=== PATIENT | female | born 1945 | race Caucasian/White ===

== ENCOUNTER 2017-08-14 23:15 | Emergency (ER) | payer MEDICARE, SELFPAY ==
[2017-08-14 23:16] VITALS: BP 143/73; PULSE 72; RESP 18; TEMP 36.7; O2SAT 98; BMI 33.4
[2017-08-14 23:52] LABS: Bedside Glucose 107 mg/dL (70-110)
[2017-08-14 23:52] LABS: Bedside Glucose 129 mg/dL (70-110)
[2017-08-14 23:52] LABS: Absolute Lymphocyte Count 1.61 X10^3/ul (0.83-4.51); Absolute Neutrophil Count 3.4 X10^3/uL (2.0-7.7); Basophil# 0.02 X10^3/uL; Basophil% 0.4 % (0-1); Eosinophil# 0.13 X10^3/uL; Eosinophils% 2.4 % (0-5); Hematocrit 32.3 % (37-47); Lymphocyte # 1.61 X10^3/ul (4.0); Lymphocyte % 29.2 % (19-41); Mean Corp Hgb Conc 34.1 g/gl (32-36); Mean Corpuscular Hgb 32.9 pg (27.0-32.0); Mean Corpuscular Volume 96.7 fL (81-99); Mean Platelet Vol. 11.1 fl (6.2-12.0); Monocyte# 0.35 X10^3/uL; Monocyte% 6.4 % (0-10); Neutrophil # 3.36 X10^3/uL (2.7-7.7); Neutrophil % 60.9 % (47-70); Platelet Count 171 K/mm3 (150-450); RBC Distribution Width CV 13.3 % (11.6-14.6); RBC Distribution Width SD 44.8 fl (35.1-43.9); Red Blood Count 3.34 M/mm3 (4.2-5.4); White Blood Count 5.5 K/mm3 (4.4-11.0)
[2017-08-14 23:56] LABS: POSITIVE COUNT NO; POSITIVE DIFFERENTIAL NO; POSITIVE MORPHOLOGY NO
[2017-08-14 23:59] LABS: Anion Gap 10 (5-15); BUN 32 mg/dL (7-18); BUN/Creat Ratio 24.2 RATIO (10-20); Calcium,Total 8.3 mg/dL (8.5-10.1); Chloride 112 mmol/L (98-107); Creatinine, Serum 1.32 mg/dL (0.55-1.02); EST Glomerular Filtration Rate 42 mL/min (>60); Est Glom Filt Rate - Afr Amer 51 mL/min (>60); Estimated Creatinine Clearance 27.26 ml/min; Glucose 137 mg/dL (70-110); Sodium Level 141 mmol/L (136-145)
[2017-08-15] MEDS: Acetaminophen 500 MG Tablet 1000 MG PO (00:17)
[2017-08-15] MEDS: Dextrose 50%-Water 25 GM/50 ML DISP.SYRIN IV (00:18)
[2017-08-15 00:52] VITALS: BP 139/53; PULSE 69; RESP 15; O2SAT 99
[2017-08-15 00:56] LABS: Bedside Glucose 140 mg/dL (70-110)
[2017-08-15 00:56] LABS: Bedside Glucose 169 mg/dL (70-110)
[2017-08-15 01:04] VITALS: BP 135/64; PULSE 64; RESP 13; O2SAT 99
[2017-08-15 01:06] LABS: Bedside Glucose 132 mg/dL (70-110)
--- NOTE | 2017-08-15 01:06 | CT_ITS ---
STUDY: CT ABDOMEN AND PELVIS WITHOUT CONTRAST REASON FOR EXAM: Female, 71 years old. Hypoglycemia right-sided abdominal pain and shortness of breath dizziness multiple medical problems including hypertension diabetes hypothyroidism kidney stones. History of hysterectomy RADIATION DOSAGE (If Supplied By Facility): CTDIvol = ( 11.31 ) mGy, DLP = ( 562.15 ) mGycm TECHNIQUE: Transaxial images were obtained from the dome of the diaphragm to the symphysis pubis without oral contrast, and without intravenous contrast. Sagittal and coronal images were reconstructed. Individualized dose optimization techniques were used for this CT. COMPARISON: None. FINDINGS: There is trace lower lobe atelectasis. There is dense calcification of the mitral valve. Normal liver. There is non-visualization of the gallbladder, which may be secondary to either contraction or a prior cholecystectomy. Normal spleen. There is diffuse atrophy of the pancreas. There is a minimal amount of pancreatic tissue demonstrated what is remaining is calcified partially calcified. Normal bilateral adrenal glands. There is minimal right pelviectasis. Is a punctate stone adjacent to the distal right ureter. The left kidney appears mildly atrophied. There is a stone in the left kidney that measures 2.5 mm.. There is a small hiatal hernia. Normal small intestine. There is abundant stool in the colon from cecum to the rectum. The appendix is visualized and appears normal. Aorta is partially calcified. Normal inferior vena cava. Normal retroperitoneum. Normal urinary bladder. There is absence of the uterus consistent with a prior hysterectomy. There is a small umbilical hernia containing fat. The bones are osteopenic is anterolisthesis of L4-L5. There is multilevel disc space narrowing and endplate sclerosis spondylosis most significant at L4-L5 where there is severe neural foraminal narrowing and severe central stenosis. CT/Abdomen/Pelvis without Cont IMPRESSION: Constipation. Minimal diverticulosis no definitive diverticulitis. No evidence of appendicitis. Mild left renal atrophy and nonobstructing left renal calculus Minimal right pelviectasis. Left greater than right mild renal atrophy. There is a small hiatal hernia. Degenerative changes of the thoracolumbar spine most significant at level L4-L5. Electronically Signed: Betina Espinal MD at 1:53 EST Tel , Service support ,
--- NOTE | 2017-08-15 01:29 | ED.DCSUM_ITS ---
- ER Visit Summary Date of Service: 08/15/17 Chief Complaint: Hypoglycemia History of Present Illness: The patient is a 71 F who is a resident at [facility]. Patient reportedly was given short acting insulin instead of her evening long-acting dose. She was given 27 units of regular insulin at 9 PM. Patient is complaining of feeling sleepy. Blood sugar for EMS was 121. Patient arrived here at nearly 11:30PM for evaluation. Patient states she was seen by a doctor earlier today and he complained of abdominal distention. She was told she likely had a kidney stone, and once is evaluated while she has here as well. She does state she has been having blood in her urine for quite some time. Physical Examination: Vital signs are unremarkable. Patient sitting upright in bed no acute distress. Heart is regular rate and rhythm. Lung sounds are clear. Abdomen is soft, slightly distended, and mildly diffusely tender. No guarding or rebound is noted. Extremity examination is unremarkable. Test Results: CBC was normal white count with hemoglobin 11.0. Chemistry studies reveal a glucose of 137, BUN 32, creatinine 1.32. This is her baseline renal status. Emergency Department Course and Treatment: Patient has had frequent blood sugar checks while here. Although she maintained stable blood sugars in the 1 teens to 120 range, after speaking with the [facility] staff she did have a sudden drop of 100 points and a half hour time period. That is when the patient started to feel ill. In light of this she was given a half amp of D50. She is given Tylenol for headache. Patient states that while she is here in the emergency room she would like to have her abdominal pain addressed and determine if in fact she does have a kidney stone. Urinalysis was obtained and shows no significant blood. CT the flank shows constipation. There is a nonobstructing left renal stone noted. There is a small hiatal hernia. Patient was observed until 6 hours after the time she was giving the wrong insulin. Blood sugars have been stable. At this time the fast acting insulin should be out of her system. She will be discharged back to her assisted living center. Treatment Plan: [] Disposition: Discharge Impression: Medication error This note was generated with [employer] software. It may contain incorrect words, spelling, and punctuation that were not noted in review of the chart prior to signing ED Disposition - Plan for ED Patient: Disposition: Home or Assisted Living Chief Complaint: Hypoglycemia Instructions: ED Constipation, ED Diabetes Hypoglycemia Insulin React Referrals: Krystal Alcaraz MD [Primary Care Provider] - 1 Week
[2017-08-15] MEDS: Ondansetron 4 MG/2 ML Vial IV (01:44)
[2017-08-15 01:56] LABS: Bedside Glucose 108 mg/dL (70-110)
[2017-08-15 02:09] VITALS: BP 138/65; PULSE 71; RESP 16; O2SAT 98
[2017-08-15 02:09] LABS: Bacteria 0 SEEN /hpf (None Seen); Mucous, Urine 0 SEEN /hpf (<or=2+); Red Blood Cells-Urine 0 SEEN /hpf (0-5)
[2017-08-15 02:13] LABS: Color, Urine Yellow (Yellow); Glucose, Dipstick Normal (Normal); Ketone-Dipstick Negative (Negative); Leukocyte Esterase-Dipstick 25 /ul (Negative); Nitrite-Dipstick Negative (Negative); Occult Blood-Urine Negative /ul (Negative); Protein-Dipstick Negative (Negative); Specific Gravity, Urine 1.015 (1.002-1.030); Urine Bilirubin Dipstick Negative (Negative); Urine Clarity Sl. Cloudy (Clear); Urine Urobilinogen Normal (Normal)
[2017-08-15 02:25] LABS: Squamous Epithelial Cells - UA 0-5 SEEN /hpf (5-10); White Blood Cells 5-10 SEEN /hpf (0-5)
[2017-08-15 03:05] VITALS: BP 132/63; PULSE 66; RESP 18; O2SAT 96
[2017-08-15 03:06] LABS: Bedside Glucose 137 mg/dL (70-110)
--- NOTE | 2017-08-15 03:09 | ED.DEP ---
ED Disposition - Plan for ED Patient: Disposition: Home or Assisted Living Chief Complaint: Hypoglycemia Instructions: ED Diabetes Hypoglycemia Insulin React, ED Constipation Referrals: Krystal Alcaraz MD [Primary Care Provider] - 1 Week
[2017-08-15 03:18] VITALS: BP 131/67; PULSE 73; RESP 16; O2SAT 98
[2017-08-17 12:06] LABS: Bedside Glucose 104 mg/dL (70-110)
[2017-08-17 12:06] LABS: Bedside Glucose 116 mg/dL (70-110)
[2017-08-17 12:06] LABS: Bedside Glucose 122 mg/dL (70-110)
== END 2017-08-15 03:34 | disposition home or self-care (01) ==
PROVIDERS: Emergency Provider Emergency Medicine; Family Provider Internal Medicine; PCP Internal Medicine
DX: T38.3X1A Poisoning by insulin and oral hypoglycemic [antidiabetic] drugs, accidental (unintentional), initial encounter (principal); K59.00 Constipation, unspecified; N20.0 Calculus of kidney; K44.9 Diaphragmatic hernia without obstruction or gangrene; M19.90 Unspecified osteoarthritis, unspecified site; Z79.4 Long term (current) use of insulin; Z79.02 Long term (current) use of antithrombotics/antiplatelets; Z79.899 Other long term (current) drug therapy; Y92.099 Unspecified place in other non-institutional residence as the place of occurrence of the external cause
CPT/HCPCS: 74176; 80048; 81001; 82962; 85025; 96374; 96375; 99285; A4216; J2405

== ENCOUNTER → 2017-08-31 21:36 | Outpatient (CLI) | payer MEDICARE, SELFPAY | PROVIDERS: Family Provider Internal Medicine; PCP Internal Medicine; Visit Provider Nurse Practitioner Adult Health | DX: R82.99 Other abnormal findings in urine (principal) | CPT/HCPCS: 87077; 87086; 87088; 87186 ==

== ENCOUNTER → 2017-09-08 14:48 | Outpatient (CLI) | payer MEDICARE, SELFPAY ==
[2017-09-08 14:55] LABS: Mucous, Urine 0 SEEN /hpf (<or=2+)
[2017-09-08 17:37] LABS: Absolute Lymphocyte Count 1.31 X10^3/ul (0.83-4.51); Absolute Neutrophil Count 4.1 X10^3/uL (2.0-7.7); Basophil# 0.02 X10^3/uL; Basophil% 0.3 % (0-1); Eosinophils% 3.4 % (0-5); Hematocrit 34.1 % (37-47); Lymphocyte # 1.31 X10^3/ul (4.0); Lymphocyte % 22.1 % (19-41); Mean Corp Hgb Conc 32.3 g/gl (32-36); Mean Corpuscular Hgb 31.5 pg (27.0-32.0); Mean Corpuscular Volume 97.7 fL (81-99); Mean Platelet Vol. 11.4 fl (6.2-12.0); Monocyte% 5.1 % (0-10); Neutrophil # 4.07 X10^3/uL (2.7-7.7); Neutrophil % 68.6 % (47-70); Platelet Count 195 K/mm3 (150-450); RBC Distribution Width CV 14.2 % (11.6-14.6); RBC Distribution Width SD 49.2 fl (35.1-43.9); Red Blood Count 3.49 M/mm3 (4.2-5.4); White Blood Count 5.9 K/mm3 (4.4-11.0)
[2017-09-08 17:39] LABS: POSITIVE COUNT NO; POSITIVE DIFFERENTIAL NO; POSITIVE MORPHOLOGY NO
[2017-09-08 17:58] LABS: Color, Urine Yellow (Yellow); Glucose, Dipstick Normal (Normal); Ketone-Dipstick Negative (Negative); Leukocyte Esterase-Dipstick 500 /ul (Negative); Nitrite-Dipstick Negative (Negative); Occult Blood-Urine 10 /ul (Negative); Protein-Dipstick 15 mg/dl (Negative); Urine Bilirubin Dipstick Negative (Negative); Urine Clarity Sl. Cloudy (Clear); Urine Urobilinogen Normal (Normal)
[2017-09-08 18:06] LABS: Hemoglobin A1c 6.5 % (4.2-6.3)
[2017-09-08 18:35] LABS: Amorphous Sediment 1+ URATE; Bacteria RARE /hpf (None Seen); Red Blood Cells-Urine 0-5 SEEN /hpf (0-5); Squamous Epithelial Cells - UA 10-25 SEEN /hpf (5-10); White Blood Cells 25-50 SEEN /hpf (0-5)
[2017-09-08 18:39] LABS: ALB/GLOB Ratio 0.8 RATIO (0.9-2.4); AST(SGOT) 27 U/L (15-37); Alanine Aminotransfer ALT/SGPT 36 U/L (13-56); Albumin, Serum 3.3 g/dL (3.2-5.0); Alkaline Phosphatase 65 U/L (45-117); Anion Gap 11 (5-15); BUN 31 mg/dL (7-18); Calcium,Total 8.7 mg/dL (8.5-10.1); Chloride 107 mmol/L (98-107); Cholesterol 130 mg/dL (200); Creatinine, Serum 1.63 mg/dL (0.55-1.02); EST Glomerular Filtration Rate 33 mL/min (>60); Est Glom Filt Rate - Afr Amer 40 mL/min (>60); Ferritin 89 ng/mL (8-252); Globulin 3.9 g/dL (2.2-4.2); Glucose 179 mg/dL (74-106); High Density Lipoprotein 59 mg/dL; Iron 54 ug/dL (50-170); Iron Binding Capacity,Total 356 ug/dL (250-450); Potassium 4.1 mmol/L (3.5-5.1); Protein, Total 7.2 g/dL (6.4-8.2); Sodium Level 140 mmol/L (136-145); T4 Free Direct 0.93 ng/dL (0.76-1.46); Thyroid Stim Hormone (TSH) 2.12 uIU/mL (0.358-3.74); Triglycerides 167 mg/dL; Uric Acid 6.6 mg/dL (2.6-6.0); Very Low Density Lipoprotein 33 mg/dL (5-40)
[2017-09-08 19:15] LABS: Microalbumin,Random Urine 44.2 mg/L (NO RANGE EST.); Microalbumin:Creatinine Ratio 33.5 mg/g CRE (<30 mg/g CRE)
[2017-09-09 10:32] LABS: Vitamin B12 1572 pg/mL (211-911); Vitamin D,25 Hydroxy 19.7 ng/mL (19.95-100.01)
== END ==
PROVIDERS: Family Provider Family Medicine; PCP Family Medicine; Visit Provider Family Medicine
DX: E03.9 Hypothyroidism, unspecified (principal); D64.9 Anemia, unspecified; I48.91 Unspecified atrial fibrillation; E11.9 Type 2 diabetes mellitus without complications; E55.9 Vitamin D deficiency, unspecified; E53.8 Deficiency of other specified B group vitamins; M10.9 Gout, unspecified
CPT/HCPCS: 80053; 80061; 81001; 82043; 82306; 82570; 82607; 82728; 82746; 83036; 83540; 83550; 83735; 84439; 84443; 84550; 85025

== ENCOUNTER → 2017-09-23 14:54 | Outpatient (CLI) | payer MEDICARE, SELFPAY ==
[2017-09-23 18:13] LABS: Anion Gap 7 (5-15); BUN 25 mg/dL (7-18); BUN/Creat Ratio 18.8 RATIO (10-20); Calcium,Total 8.5 mg/dL (8.5-10.1); Chloride 106 mmol/L (98-107); Creatinine, Serum 1.33 mg/dL (0.55-1.02); EST Glomerular Filtration Rate 41 mL/min (>60); Est Glom Filt Rate - Afr Amer 50 mL/min (>60); Glucose 170 mg/dL (74-106); Potassium 4.3 mmol/L (3.5-5.1); Sodium Level 141 mmol/L (136-145)
== END ==
PROVIDERS: Family Provider Family Medicine; PCP Family Medicine; Visit Provider Family Medicine
DX: R94.4 Abnormal results of kidney function studies (principal)
CPT/HCPCS: 36415; 80048

== ENCOUNTER 2017-10-03 18:58 | Emergency (ER) | payer MEDICARE, SELFPAY ==
[2017-10-03 19:01] VITALS: BP 129/76; PULSE 59; PULSE 61; RESP 14; RESP 15; TEMP 36.6; O2SAT 100
--- NOTE | 2017-10-03 19:12 | CT_ITS ---
STUDY: CT BRAIN WITHOUT CONTRAST REASON FOR EXAM: Female, 72 years old. Severe vertigo today. RADIATION DOSAGE (If Supplied By Facility): CTDIvol = ( 44.99 ) mGy, DLP = ( 745.49 ) mGycm TECHNIQUE: Transaxial CT imaging of the brain was performed without administration of intravenous contrast material. Multiplanar reformations are submitted for interpretation Individualized dose optimization techniques were used for this CT. COMPARISON: CT of the head dated February 21, 2017. FINDINGS: Normal soft tissue structures. Normal calvarium. There is moderate cerebral atrophy with widening of the extra-axial spaces and ventricular dilatation. There are areas of decreased attenuation within the white matter tracts of the supratentorial brain, consistent with microvascular disease changes. There are small punctate calcifications of the basal ganglia which are seen in the aging brain as a normal variant. Normal brainstem. There is mild cerebellar atrophy. There is no intracranial hemorrhage. There is moderate atherosclerotic calcification of intracranial arteries. Appears to be some gas within the left cavernous sinus. Normal visualized paranasal sinuses. CT/Brain/Head without Contrast IMPRESSION: 1. Chronic involutional changes of the brain. 2. No CT evidence of acute intracranial hemorrhage. Electronically Signed: Aydee Godinez MD at 20:30 EDT , Service support ,
--- NOTE | 2017-10-03 19:12 | EKG12_ITS ---
Test Reason : Blood Pressure : / mmHG Vent. Rate : 051 BPM Atrial Rate : 051 BPM P-R Int : 160 ms QRS Dur : 148 ms QT Int : 568 ms P-R-T Axes : 022 -31 050 degrees QTc Int : 523 ms Sinus bradycardia with Premature atrial complexes Left axis deviation Left bundle branch block Abnormal ECG Confirmed by ANG SCHULER, LEANNA ([id number]), editor & co founder LIV VARGAS ([id number]) on 10/06/2017 3:04:27 PM Referred By: IAN Confirmed By:LEANNA FRY MD
--- NOTE | 2017-10-03 19:16 | NURSING ---
NO OLD EKG'S IN MUSE
[2017-10-03] MEDS: Meclizine 12.5 MG Tablet 25 MG PO (19:35)
[2017-10-03] MEDS: Ondansetron 4 MG/2 ML Vial IV (19:36)
[2017-10-03 19:40] LABS: Absolute Lymphocyte Count 1.49 X10^3/ul (0.83-4.51); Absolute Neutrophil Count 4.7 X10^3/uL (2.0-7.7); Basophil# 0.02 X10^3/uL; Basophil% 0.3 % (0-1); Eosinophil# 0.16 X10^3/uL; Eosinophils% 2.4 % (0-5); Hematocrit 36.1 % (37-47); Hemoglobin 12.1 g/dl (12.0-15.0); Lymphocyte # 1.49 X10^3/ul (4.0); Lymphocyte % 22.3 % (19-41); Mean Corp Hgb Conc 33.5 g/gl (32-36); Mean Corpuscular Hgb 31.9 pg (27.0-32.0); Mean Corpuscular Volume 95.3 fL (81-99); Mean Platelet Vol. 11.6 fl (6.2-12.0); Monocyte# 0.29 X10^3/uL; Monocyte% 4.3 % (0-10); Neutrophil # 4.68 X10^3/uL (2.7-7.7); Neutrophil % 70.3 % (47-70); Platelet Count 167 K/mm3 (150-450); RBC Distribution Width CV 13.1 % (11.6-14.6); RBC Distribution Width SD 45.5 fl (35.1-43.9); Red Blood Count 3.79 M/mm3 (4.2-5.4); White Blood Count 6.7 K/mm3 (4.4-11.0)
[2017-10-03 19:41] LABS: POSITIVE COUNT NO; POSITIVE DIFFERENTIAL NO; POSITIVE MORPHOLOGY NO
[2017-10-03 19:49] LABS: Anion Gap 8 (5-15); BUN 19 mg/dL (7-18); BUN/Creat Ratio 15.2 RATIO (10-20); Calcium,Total 8.6 mg/dL (8.5-10.1); Chloride 106 mmol/L (98-107); Creatinine, Serum 1.25 mg/dL (0.55-1.02); EST Glomerular Filtration Rate 45 mL/min (>60); Est Glom Filt Rate - Afr Amer 54 mL/min (>60); Glucose 211 mg/dL (74-106); Potassium 4.2 mmol/L (3.5-5.1); Sodium Level 138 mmol/L (136-145)
--- NOTE | 2017-10-03 19:57 | RAD_ITS ---
STUDY: X-RAY CHEST REASON FOR EXAM: Female, 72 years old. Headache and dizziness. Patient has history of hypertension and atrial fibrillation. TECHNIQUE: AP and lateral views of the chest. COMPARISON: Prior comparable comparison studies are not available for review at this time. FINDINGS: Cardiac monitoring leads are present. The lungs are underexpanded. There is no evidence for airspace consolidation. There is no demonstrated pleural abnormality. There is borderline cardiomegaly. Normal mediastinum and kasey. Normal visualized pulmonary arteries. There is atherosclerotic calcification of the aortic arch with tortuosity. There is demineralization of the osseous structures. There is multilevel thoracic spondylosis. Normal visualized ribs, clavicles, and shoulders. There is no demonstrated abnormality of the visualized soft tissue structures of the upper abdomen. RAD/Chest PA and Lateral IMPRESSION: Borderline cardiomegaly. Electronically Signed: Aydee Godinez MD at 20:32 EDT , Service support ,
[2017-10-03 19:58] VITALS: BP 122/70; BP 128/70; PULSE 62; PULSE 65
[2017-10-03 21:03] VITALS: BP 130/78; PULSE 67; RESP 14; O2SAT 98
--- NOTE | 2017-10-03 22:11 | ED.VISSUMM ---
- ER Visit Summary Date of Service: 10/03/17 Chief Complaint: Vertigo History of Present Illness: The patient is a [address] Alcaraz. She is not a reliable informant. She reports that she was sitting on the couch 6 hours ago and had the onset of vertigo. States it is increased with standing or moving her head. She denies any ringing or roaring in her ears. No change or hearing. No ear pain. States that she has a headache this out of 10 severity. It is a diffuse throbbing pain. States nothing makes this better or worse. She has a history of similar headaches. Patient complains of chills. She denies a fever. She reports she has had a cough for the past 2 weeks that is nonproductive. She denies any chest pain or shortness of breath. She denies any abdominal pain, nausea, vomiting, or melena. She reports that she has been having diarrhea 4 times a day for the past 3 weeks. Patient reports that she has not urinated for the past 2 weeks. Physical Examination: Vitals: Stable. Afebrile. General: Well-nourished and well-developed. Head: Normocephalic atraumatic. Neck: Supple, no lymphadenopathy. No JVD. Nontender. Cardiovascular: Regular rate and rhythm. No murmurs. Respiratory: No respiratory distress. Clear to auscultation bilaterally. Abdominal: Soft, nontender, nondistended, normal bowel sounds. No guarding, rebound, or peritoneal signs. Back: Nontender. Extremities: Nontender, no edema. Skin: Normal color, no rash. Neurologic: Alert and oriented ?3. Cranial nerves II through XII are intact. Normal strength and sensation. No Nystagmus. Psych: Normal affect. Test Results: CT head shows no acute disease. Chest x-ray shows poor inspiration and no infiltrate. EKG is sinus bradycardia at 51 with left bundle branch block. CBC is marked for hematocrit of 36.1. Chem-7 is marked for glucose 211, BUN 19, creatinine 1.25. Her creatinine is been 1.32-1.63 this year. Emergency Department Course and Treatment: Patient was given Zofran IV and Antivert p.o. She had negative orthostatic vital signs. She stood up and ambulated to the bathroom and urinated here without any difficulty. Reports that her vertigo has resolved. Treatment Plan: Patient will be discharged with Zofran and Antivert. Instructed follow-up her primary care physician 1-2 days if not improving. Return to the emergency department for any worsening symptoms. Disposition: To home in improved and stable condition. Impression: 1. Vertigo, resolved. This note was generated with [employer] dictation software. It may contain incorrect words, spelling, and punctuation that were not noted in review of the chart prior to signing ED Disposition - Plan for ED Patient: Disposition: Home or Assisted Living Chief Complaint: Dizziness Instructions: ED Dizziness UKO Prescriptions: Ondansetron [Zofran Odt] 4 mg PO Q8H PRN PRN #10 tablet PRN Reason: Nausea Meclizine HCl [Antivert] 25 mg PO 4X/DAY PRN PRN #20 tablet PRN Reason: Dizziness Referrals: Jim Padgett MD [Primary Care Provider] - 1-2 Days if not improving
--- NOTE | 2017-10-03 22:25 | ED.RN ---
samantha coleman called and updated on patients condition and discharge status
[2017-10-03 22:31] VITALS: BP 133/70; PULSE 65; RESP 14; O2SAT 99
== END 2017-10-03 22:47 | disposition home or self-care (01) ==
LOC: ED 19:20
PROVIDERS: Emergency Provider Emergency Medicine; Family Provider Family Medicine; PCP Family Medicine
DX: R42 Dizziness and giddiness (principal); R55 Syncope and collapse; R00.1 Bradycardia, unspecified; I44.7 Left bundle-branch block, unspecified; E11.9 Type 2 diabetes mellitus without complications; I10 Essential (primary) hypertension; E78.00 Pure hypercholesterolemia, unspecified; M10.9 Gout, unspecified; Z79.02 Long term (current) use of antithrombotics/antiplatelets; Z79.4 Long term (current) use of insulin; Z79.899 Other long term (current) drug therapy
CPT/HCPCS: 70450; 71046; 80048; 85025; 93005; 96361; 96374; 99285; J7030; J7040; A4216; J2405

== ENCOUNTER → 2017-10-06 20:05 | Outpatient (CLI) | payer MEDICARE, SELFPAY | PROVIDERS: Family Provider Family Medicine; PCP Family Medicine; Visit Provider Nurse Practitioner Adult Health | DX: G47.10 Hypersomnia, unspecified (principal) | CPT/HCPCS: 95810 ==

== ENCOUNTER → 2017-10-08 07:45 | Outpatient (CLI) | payer MEDICARE, SELFPAY ==
--- NOTE | 2017-10-08 07:50 | RDU_ITS ---
Reason For Study: Decreased GFR Right Renal Artery Left Renal Artery Right renal artery ostium Left renal artery ostium 65.7/20.1 92.9/17.1 RSV/EDV. PSV/EDV. Right renal artery proximal Left renal artery proximal PSV/EDV 86.8/20.8 PSV/EDV. 60.2/18.2 . Right renal artery mid 139/32.5 Left renal artery mid 92.3/20.2 PSV/EDV. PSV/EDV . Right renal artery distal 123/22.9 Left renal artery distal 108/20.2 PSV/EDV. PSV/EDV. Right RAR 1.5. Left RAR 1.2. Right Renal Parenchyma Left Renal Parenchyma Upper Pole Medula 19.9/6.42 Left upper pole medulla 30.2/6.72 PSV/EDV. PSV/EDV . Right upper pole medulla EDR .32 . Left upper pole medulla EDR .33 . Right upper pole medulla R.I. Left upper pole medulla R.I. .67 . .68 . UP Cortex 15.9/5.81 PSV/EDV. Upper Gagan Cortx 21.4/6.72 PSV/EDV. Left upper pole cortex EDR .37 . Right upper pole cortex EDR .31 . Left upper pole cortex R.I. .63 . Right upper pole cortex R.I. .69 . Left lower Pole medulla 15.6/6.11 Right lower Pole medulla 24.1/5.81 PSV/EDV . PSV/EDV . Left lower pole medulla EDR .39 . Right lower pole medulla EDR .24 . Left lower pole medulla R.I. .61 . Right lower pole medulla R.I. Lower Pole Cortx 12.8/4.89 PSV/EDV. .76 . Left lower pole cortex EDR .38 . Lower Pole Cortex 17.1/3.67 Left lower pole cortex R.I. .62 . PSV/EDV. Left Renal Hilar Right lower pole cortex EDR .21 . Left hilar acceleration time 51 Right lower pole cortex R.I. .79 . m/sec. Right Renal Hilar LT Hilar avg 37.0/8.56 PSV/EDV . Right hilar acceleration time 66 Left Renal Dimensions m/sec. Left kidney size 9.3 cm . Right Hilar avg 57.5/11.4 PSV/EDV. Left cortical dimension .934 cm . Right Renal Dimensions Right kidney size 9.2 cm . Right cortical dimension 1.03 cm . Aorta Proximal abdominal aorta 1.24 x 1.14 cm . Proximal abdominal aorta peak systolic velocity is 90.3 cm/sec . Distal abdominal aorta 1.33 x 1.28 cm . Distal abdominal aorta peak systolic velocity is 77.5 cm/sec . Normal renal veins bliat. Interpretation Summary Dimensions of the intra-abdominal aorta appear normal, without evidence of aneurysmal dilatation. Renal artery velocities are bilaterally normal. Acceleration times are normal bilaterally. Renal- aortic ratios are also bilaterally normal. There is no evidence of hemodynamically significant renal artery stenosis on either side. Renovascular resistance appears to be bilaterally normal . The right cortical dimension is normal. The left cortical dimension is decreased. Kidneys appear normal in size bilaterally. Ordering Physician: Jim Padgett Performed By: Carlos A Castellanos, RVT
--- NOTE | 2017-10-08 08:25 | US_ITS ---
STUDY: RENAL ULTRASOUND - COMPLETE REASON FOR EXAM: Female, 72 years old. Decreased GFR TECHNIQUE: Ultrasound evaluation of the kidneys was performed with real-time and static lilly-scale imaging. COMPARISON: CT abdomen pelvis 08/15/2017 FINDINGS: RIGHT KIDNEY: There is mild renal atrophy. The right kidney measures 9.5 x 4 x 4 cm. There is a echogenic thinned cortex of the right kidney. The renal cortex measures 1.2 cm. There is a 1.4 x 0.8 x 0.8 cm right cyst. There are no right renal calculi. There is mild calyectasis// mild hydronephrosis. DISTAL RIGHT URETER: There is non-visualization of the distal right ureter. There is no demonstrated right ureterovesical junction calculus. There is a visualized right ureteral jet. LEFT KIDNEY: There is mild renal atrophy. The left kidney measures 9.5 x 2.8 x 4 cm. There is a echogenic thinned cortex of the left kidney. The renal cortex measures 1.2 cm. There is mild calyectasis mild hydronephrosis. DISTAL LEFT URETER: There is non-visualization of the distal left ureter. There is no demonstrated left ureterovesical junction calculus. There is no demonstrated left ureteral jet. BLADDER: There is an up to 3.5 mm wall thickness of the distended urinary bladder. There is no demonstrated mass within the urinary bladder. There are no demonstrated bladder calculi. US/Kidney and Bladder IMPRESSION: Bilateral renal involution. Small left right renal cyst. Bilateral mild renal caliectasis/hydronephrosis as seen on CT Electronically Signed: Mandy Mayen MD at 8:13 EDT , Service support ,
== END ==
PROVIDERS: Family Provider Family Medicine; PCP Family Medicine; Visit Provider Family Medicine
DX: R94.4 Abnormal results of kidney function studies (principal)
CPT/HCPCS: 76770; 93975

== ENCOUNTER → 2017-11-06 13:45 | Outpatient (CLI) | payer MEDICARE, SELFPAY ==
--- NOTE | 2017-11-06 13:52 | US_ITS ---
STUDY: ULTRASOUND - URINARY BLADDER REASON FOR EXAM: Female, 72 years old. Incomplete emptying TECHNIQUE: Ultrasound evaluation of the urinary bladder was performed with real-time and static solis-scale imaging. Technologist noted the patient had difficulty holding the bladder. COMPARISON: Bladder ultrasound October 08, 2017 FINDINGS: There is no right UVJ calculus. There is a visualized right ureteral jet. There is no left UVJ calculus. There is a visualized left ureteral jet. The ovoid volume of the urinary bladder is 67 ml. The post void volume of the urinary bladder is 51 ml. The bladder wall is within normal limits. The bladder wall measures 2.6. There is no demonstrated bladder wall mass lesion. There are no demonstrated bladder calculi. US/Post Void Residual Bladder IMPRESSION: Small urinary prevoid volume relative residual. Lower bladder prevoid volume than on prior study and Higher residual. Electronically Signed: Betina Espinal MD at 8:24 EDT Tel , Service support ,
== END ==
PROVIDERS: Family Provider Family Medicine; PCP Family Medicine; Visit Provider Family Medicine
DX: R33.9 Retention of urine, unspecified (principal)
CPT/HCPCS: 51798; 76770

== ENCOUNTER → 2018-02-10 08:44 | Outpatient (CLI) | payer MEDICARE, SELFPAY ==
--- NOTE | 2018-02-10 08:49 | RAD_ITS ---
STUDY: X-RAY - LUMBAR SPINE REASON FOR EXAM: Female, 72 years old. Low back pain TECHNIQUE: 3 view(s) of the lumbar spine were obtained. COMPARISON: 02/21/2017 FINDINGS: Normal lumbar lordosis. There is a mild levoscoliosis of the lumbar spine. There is a normal alignment of the vertebrae in the lateral view from L1 to L4. Stable grade 1 spondylolisthesis at L4-5. L5 and S1 align anatomically.. There is multilevel endplate spondylosis of the lumbar vertebrae. There is multi-level degenerative disc disease with multi-level disc space narrowing. There is no demonstrated fracture. There is atherosclerotic calcification of the abdominal aorta without a demonstrated aneurysm. RAD/Lumbar Spine 2 or 3 Views IMPRESSION: Degenerative changes of the spine, as detailed above. No demonstrated fracture Stable grade 1 spondylolisthesis at L4-5 Mild levoscoliosis Electronically Signed: Javi Linares MD at 10:12 EDT , Service support ,
[2018-02-10 10:04] LABS: Absolute Lymphocyte Count 1.36 X10^3/ul (0.83-4.51); Absolute Neutrophil Count 4.3 X10^3/uL (2.0-7.7); Basophil# 0.02 X10^3/uL; Basophil% 0.3 % (0-1); Eosinophils% 3.2 % (0-5); Hematocrit 39.6 % (37-47); Hemoglobin 13.2 g/dl (12.0-15.0); Lymphocyte # 1.36 X10^3/ul (4.0); Lymphocyte % 21.7 % (19-41); Mean Corp Hgb Conc 33.3 g/gl (32-36); Mean Corpuscular Volume 95.9 fL (81-99); Mean Platelet Vol. 11.1 fl (6.2-12.0); Monocyte# 0.36 X10^3/uL; Monocyte% 5.8 % (0-10); Neutrophil # 4.26 X10^3/uL (2.7-7.7); Platelet Count 185 K/mm3 (150-450); RBC Distribution Width CV 13.4 % (11.6-14.6); RBC Distribution Width SD 44.9 fl (35.1-43.9); Red Blood Count 4.13 M/mm3 (4.2-5.4); White Blood Count 6.3 K/mm3 (4.4-11.0)
[2018-02-10 10:11] LABS: POSITIVE COUNT NO; POSITIVE DIFFERENTIAL NO; POSITIVE MORPHOLOGY NO
[2018-02-10 10:37] LABS: Vitamin D,25 Hydroxy 55.3 ng/mL (29.95-100.01)
[2018-02-10 10:38] LABS: Anion Gap 8 (5-15); BUN 21 mg/dL (7-18); BUN/Creat Ratio 16.3 RATIO (10-20); Calcium,Total 9.2 mg/dL (8.5-10.1); Chloride 106 mmol/L (98-107); Cholesterol 144 mg/dL (200); Creatinine, Serum 1.29 mg/dL (0.55-1.02); EST Glomerular Filtration Rate 43 mL/min (>60); Est Glom Filt Rate - Afr Amer 52 mL/min (>60); Glucose 191 mg/dL (74-106); High Density Lipoprotein 48 mg/dL; Magnesium 1.9 mg/dL (1.6-2.6); Potassium 4.2 mmol/L (3.5-5.1); Sodium Level 141 mmol/L (136-145); Thyroid Stim Hormone (TSH) 1.59 uIU/mL (0.358-3.74); Triglycerides 232 mg/dL; Very Low Density Lipoprotein 46 mg/dL (5-40)
[2018-02-10 21:29] LABS: Hemoglobin A1c 7.5 % (4.2-6.3)
== END ==
PROVIDERS: Family Provider Family Medicine; PCP Family Medicine; Visit Provider Family Medicine
DX: E11.9 Type 2 diabetes mellitus without complications (principal); N18.3 Chronic kidney disease, stage 3 (moderate); E78.5 Hyperlipidemia, unspecified; I48.91 Unspecified atrial fibrillation; E03.9 Hypothyroidism, unspecified; R94.4 Abnormal results of kidney function studies; M10.9 Gout, unspecified; E55.9 Vitamin D deficiency, unspecified; M54.5 Low back pain; R80.9 Proteinuria, unspecified
CPT/HCPCS: 36415; 72100; 80048; 80061; 82306; 83036; 83735; 84443; 84550; 85025

== ENCOUNTER 2018-03-05 12:57 | Emergency (ER) | payer MEDICARE, SELFPAY ==
[2018-03-05 12:59] VITALS: BP 103/85; PULSE 80; RESP 24; TEMP 36.6; O2SAT 100; BMI 31.2
--- NOTE | 2018-03-05 13:19 | ED.DCSUM_ITS ---
- ER Visit Summary Date of Service: 03/05/18 Chief Complaint: Nausea, vomiting and diarrhea since last night History of Present Illness: The patient is a 72 F history of insulin-dependent diabetes and hypertension. Patient states since last evening she has had nausea , vomiting and diarrhea. Also some abdominal cramping. Denies dysuria. No specific fever. No melena. No hematemesis. No anticoagulation. Physical Examination: Elderly female no acute distress. Vital signs are stable afebrile. H EENT exam shows mildly dry mucous members. Otherwise unremarkable. No signs of trauma. Neck nontender. No lymphadenopathy. Lungs clear to auscultation bilaterally. Heart regular rhythm no murmur rate about 80. Abdomen is soft. Nondistended. Normal bowel sounds. No peritoneal signs. Mild diffuse tenderness. No obvious organomegaly or masses. No pulsatile mass. Both the right upper right lower quadrants are unremarkable. No signs of hernias or obstruction. She is moving all 4 extremities. Neurovascular intact. Back nontender. Neurologically she is awake and alert. Following commands. Moving her extremities. Answering questions. Test Results: CBC normal white count 3. Hemoglobin 13. Electrolytes unremarkable. Patient has chronic renal insufficiency creatinine is 1.44. Liver enzymes normal lipase normal. Emergency Department Course and Treatment: Patient will be treated with IV fluids and IV Zofran. Labs will be obtained. Treatment Plan: On repeat exam patient is doing well at 1510. She feels much better after IV fluids and IV Zofran. He feels comfortably discharged home. Her abdomen currently is benign and nontender. Discharged with Zofran prescription. Disposition: Discharge Impression: Acute abdominal pain with nausea, vomiting and diarrhea secondary to viral gastroenteritis Mild dehydration This note was generated with [employer] dictation software. It may contain incorrect words, spelling, and punctuation that were not noted in review of the chart prior to signing ED Disposition - Plan for ED Patient: Chief Complaint: Nausea/Vomiting Referrals: Jim Padgett MD [Primary Care Provider] -
[2018-03-05 13:40] LABS: Absolute Lymphocyte Count 0.63 X10^3/ul (0.83-4.51); Absolute Neutrophil Count 2.8 X10^3/uL (2.0-7.7); Basophil# 0.02 X10^3/uL; Basophil% 0.5 % (0-1); Eosinophil# 0.11 X10^3/uL; Eosinophils% 2.9 % (0-5); Hematocrit 40.2 % (37-47); Hemoglobin 13.7 g/dl (12.0-15.0); Lymphocyte # 0.63 X10^3/ul (4.0); Lymphocyte % 16.5 % (19-41); Mean Corp Hgb Conc 34.1 g/gl (32-36); Mean Corpuscular Volume 93.9 fL (81-99); Mean Platelet Vol. 10.9 fl (6.2-12.0); Monocyte# 0.21 X10^3/uL; Monocyte% 5.5 % (0-10); Neutrophil # 2.82 X10^3/uL (2.7-7.7); Neutrophil % 74.1 % (47-70); Platelet Count 148 K/mm3 (150-450); RBC Distribution Width CV 13.6 % (11.6-14.6); Red Blood Count 4.28 M/mm3 (4.2-5.4); White Blood Count 3.8 K/mm3 (4.4-11.0)
--- NOTE | 2018-03-05 13:41 | ED.RN ---
PT STATES BLOOD SUGAR OVER 500 AT HOME
[2018-03-05] MEDS: 0.9% Normal Saline 1,000 ML 1000 ML IV (13:42)
[2018-03-05] MEDS: Ondansetron 4 MG/2 ML Vial IV (13:42)
[2018-03-05 13:54] LABS: POSITIVE COUNT NO; POSITIVE DIFFERENTIAL NO; POSITIVE MORPHOLOGY NO
[2018-03-05 13:56] LABS: AST(SGOT) 37 U/L (15-37); Alanine Aminotransfer ALT/SGPT 43 U/L (13-56); Albumin, Serum 3.4 g/dL (3.2-5.0); Alkaline Phosphatase 64 U/L (45-117); Amylase 13 U/L (25-115); Anion Gap 9 (5-15); BUN 22 mg/dL (7-18); BUN/Creat Ratio 15.3 RATIO (10-20); Bilirubin, Direct 0.21 mg/dL (0.00-0.30); Calcium,Total 8.8 mg/dL (8.5-10.1); Chloride 106 mmol/L (98-107); Creatinine, Serum 1.44 mg/dL (0.55-1.02); EST Glomerular Filtration Rate 38 mL/min (>60); Est Glom Filt Rate - Afr Amer 46 mL/min (>60); Estimated Creatinine Clearance 24.62 ml/min; Globulin 4.4 g/dL (2.2-4.2); Glucose 312 mg/dL (74-106); Lipase 27 U/L (73-393); Potassium 3.9 mmol/L (3.5-5.1); Protein, Total 7.8 g/dL (6.4-8.2); Sodium Level 137 mmol/L (136-145)
--- NOTE | 2018-03-05 15:14 | ED.DEP ---
ED Disposition - Plan for ED Patient: Disposition: Home or Assisted Living Chief Complaint: Nausea/Vomiting Instructions: ED Gastroenteritis Viral Prescriptions: Ondansetron [Zofran Odt] 4 mg PO Q8H PRN PRN #10 tab PRN Reason: Nausea Referrals: Jim Padgett MD [Primary Care Provider] - 3-5 Days if not improving Additional Instructions: Plenty of fluids and rest. Increase diet slowly as tolerated. Zofran as needed for nausea. Follow-up with your doctor if not improving or return to ER feeling worse.
== END 2018-03-05 16:07 | disposition home or self-care (01) ==
PROVIDERS: Emergency Provider Emergency Medicine; Family Provider Family Medicine; PCP Family Medicine
DX: A08.4 Viral intestinal infection, unspecified (principal); E86.0 Dehydration; R11.2 Nausea with vomiting, unspecified; R19.7 Diarrhea, unspecified; R10.84 Generalized abdominal pain; E11.9 Type 2 diabetes mellitus without complications; I10 Essential (primary) hypertension; Z79.4 Long term (current) use of insulin; Z79.899 Other long term (current) drug therapy
CPT/HCPCS: 80048; 80076; 82150; 83690; 85025; 96374; 99285; J7030; A4216; J2405

== ENCOUNTER 2018-04-29 15:52 | Outpatient (RCR) | payer MEDICARE, SELFPAY ==
--- NOTE | 2018-04-29 17:45 | HP.PTEVAL ---
Patient's Visit Information NATALIA HILLIARD is a 72 year old F referred to Physical Therapy by Jim Padgett MD with a diagnosis of dizzyness. Date of Evaluation: 04/29/18 Physical Therapist: Phil Cantu DPT, [place] - Visit Plan Frequency: 1-2x /Week Duration: 2-4 Weeks Plan: F/U one week and weekly to 2x/week as needed for postional monitoring, vestibular rehab and balance education. - Subjective Subjective: wENT TO HOSPITAL DUE TO DIZZYNESS. They admitted her. Did heart adn head tests and found nothing. Dizzyness persists getting up in am and is unsteady. Head movements can create dizzyness and meds help. Last dizzyness was over a week ago. Activities are not limited due to dizzyness but she is admittedly sedentart. lives at [facility] and does what she needs to do there including dressing and bathing and bathroom. May need to sit if she gets dizzy,. Sleep is OK. Not sure what caused dizzyness. Can't make self dizzy right now. Not employed. Hobbies: TV, no regular exercises. - Objective Walks slowly and hesitantly back to PT but safe adn I with gait and transfers without UE on transfers. C/S aROM WFL and without pain.UE AROM WNL. Strength LE adn UE 3+/5 without myotomal abnormalities. - R hallpike. + L hallpike, slight up torsional nystagmus and assymetrical dizzyness x 12 sec. Treated with Dawson and balance safety, recommend cane. - Balance Scores Functional Gait Assessment Score: 21 % Disability: 30.0000 - Goals Goal 1:: Abolish dizzyness with position change. Goal Time Frame: 2-4 Weeks Goal 2:: Improve FGa to 25/30 to diminish fall risk adn bring scores in line with normal for age. Goal Time Frame: 4-6 Weeks Goal 3:: Pt feel dizzyness 75% improved and walk without deficits safely Goal Time Frame: 4-6 Weeks - Rehabilitation Potential Physical Therapy Diagnosis: dizzyness, possible BPPV Rehabilitation Potential: Fair - Anticipated Interventions Patient/Client Instruction: Educate patient on: Condition, Plan of Care For the Purpose of:: To increase tolerance to activity/condition/position Therapeutic Exercise to Include: Balance training Comment: adaptationa and habituation and positional ex. For the Purpose of:: To increase tolerance to activity/condition/position, To improve safety Thank you for the opportunity to evaluate your patient. For Medicare and Medicare HMO plans, please review the plan of care and approve it. It will need to be FAXED BACK to us at [phone] for Medicare purposes. Please let me know if there are questions or concerns regarding this plan of care. Physician Signature: Date:
--- NOTE | 2018-07-02 14:14 | HP.PT.NRP ---
HP - Discharge Summary (1) - Patient Information NATALIA HILLIARD was seen in my office for initial evaluation on 04/29/18. The following Plan of Care was established for this patient: Initial Frequency: 1-2x /Week Initial Duration: 2-4 Weeks - Anticipated Interventions Patient/Client Instruction: Educate patient on: Condition, Plan of Care For the Purpose of:: To increase tolerance to activity/condition/position Therapeutic Exercise to Include: Balance training For the Purpose of:: To increase tolerance to activity/condition/position, To improve safety This patient was last seen in our office 04/29/18. Pertinent comments regarding their Physical therapy will appear below: Pt seen one visit for postiional treatment for vertigo and neglected to attend her follow up appointment. At this point, it has been over two months and I will discontinue due to nonattendance. At this point I will be discontinuing this patient from physical therapy. I would be happy to see this patient again in the future if found appropriate by the physician. Thank you! Phil Cantu, DPT, OCS, CSCS
== END 2018-04-29 19:00 | disposition home or self-care (01) ==
LOC: PT 15:52
PROVIDERS: Family Provider Family Medicine; PCP Family Medicine; Referring Provider Family Medicine; Visit Provider Family Medicine
DX: H81.10 Benign paroxysmal vertigo, unspecified ear (principal)
CPT/HCPCS: 97162

== ENCOUNTER → 2018-06-03 11:49 | Outpatient (CLI) | payer MEDICARE, SELFPAY ==
[2018-06-03 14:18] LABS: Absolute Lymphocyte Count 1.37 X10^3/ul (0.83-4.51); Absolute Neutrophil Count 5.8 X10^3/uL (2.0-7.7); Basophil# 0.02 X10^3/uL; Basophil% 0.3 % (0-1); Eosinophil# 0.28 X10^3/uL; Eosinophils% 3.6 % (0-5); Hematocrit 38.5 % (37-47); Lymphocyte # 1.37 X10^3/ul (4.0); Lymphocyte % 17.6 % (19-41); Mean Corp Hgb Conc 33.8 g/gl (32-36); Mean Corpuscular Volume 97.7 fL (81-99); Mean Platelet Vol. 11.9 fl (6.2-12.0); Monocyte# 0.29 X10^3/uL; Monocyte% 3.7 % (0-10); Neutrophil # 5.78 X10^3/uL (2.7-7.7); Platelet Count 172 K/mm3 (150-450); RBC Distribution Width CV 13.7 % (11.6-14.6); RBC Distribution Width SD 46.6 fl (35.1-43.9); Red Blood Count 3.94 M/mm3 (4.2-5.4); White Blood Count 7.8 K/mm3 (4.4-11.0)
[2018-06-03 14:20] LABS: POSITIVE COUNT NO; POSITIVE DIFFERENTIAL NO; POSITIVE MORPHOLOGY NO
[2018-06-03 14:27] LABS: Vitamin D,25 Hydroxy 42.5 ng/mL (29.95-100.01)
[2018-06-03 14:28] LABS: ALB/GLOB Ratio 0.8 RATIO (0.9-2.4); AST(SGOT) 23 U/L (15-37); Alanine Aminotransfer ALT/SGPT 32 U/L (13-56); Albumin, Serum 3.3 g/dL (3.2-5.0); Alkaline Phosphatase 61 U/L (45-117); Anion Gap 10 (5-15); BUN 27 mg/dL (7-18); BUN/Creat Ratio 22.5 RATIO (10-20); Calcium,Total 8.9 mg/dL (8.5-10.1); Chloride 109 mmol/L (98-107); Cholesterol 153 mg/dL (200); EST Glomerular Filtration Rate 47 mL/min (>60); Est Glom Filt Rate - Afr Amer 56 mL/min (>60); Globulin 4.1 g/dL (2.2-4.2); Glucose 206 mg/dL (74-106); High Density Lipoprotein 47 mg/dL; Magnesium 1.9 mg/dL (1.6-2.6); Potassium 4.1 mmol/L (3.5-5.1); Protein, Total 7.4 g/dL (6.4-8.2); Sodium Level 140 mmol/L (136-145); T4 Free Direct 1.02 ng/dL (0.76-1.46); Thyroid Stim Hormone (TSH) 1.57 uIU/mL (0.358-3.74); Triglycerides 260 mg/dL; Very Low Density Lipoprotein 52 mg/dL (5-40)
== END ==
PROVIDERS: Family Provider Family Medicine; PCP Family Medicine; Visit Provider Family Medicine
DX: I48.91 Unspecified atrial fibrillation (principal); E11.9 Type 2 diabetes mellitus without complications; E55.9 Vitamin D deficiency, unspecified; E03.9 Hypothyroidism, unspecified; E78.5 Hyperlipidemia, unspecified
CPT/HCPCS: 36415; 80053; 80061; 82043; 82306; 82570; 83036; 83735; 84156; 84439; 84443; 85025

== ENCOUNTER → 2018-06-04 15:14 | Outpatient (CLI) | payer MEDICARE, SELFPAY ==
--- NOTE | 2018-06-04 15:19 | BI_ITS ---
MAMMOGRAPHY - BILATERAL SCREENING REASON FOR EXAM: Female, 72 years old. Routine annual screening examination. PERTINENT HISTORY: Non-contributory. TECHNIQUE: Digital bilateral breast shari (3D mammographic acquisition) in the CC and MLO projections. 2-D mediolateral oblique (MLO) and craniocaudad (CC) views of both breasts were obtained. CAD: Full Field Digital Mammography with Computer Added Detection was performed. COMPARISON: Comparison is made with prior outside examination dated December 23, 2011. FINDINGS: Breast Composition: There are scattered areas of fibroglandular density. There are no dominant masses or suspicious calcifications. No other significant abnormalities are identified. There has been no significant change since the prior study. BI/SCREENING MAMM (CAD), BILAT IMPRESSION: Stable bilateral screening mammogram. Yearly follow-up mammogram recommended. (A) ASSESSMENT CATEGORY: BIRADS Category 1: Negative. A letter regarding these results will be sent to the patient by the facility within 30 days. Approximately 10% of breast cancers are not detected by mammography. A normal mammogram should not delay biopsy of a clinically suspicious abnormality. [id number] Electronically Signed: Jayro Brandon MD at 14:06 EST Tel [phone], Service support ,
== END ==
PROVIDERS: Family Provider Family Medicine; PCP Family Medicine; Referring Provider Family Medicine; Visit Provider Family Medicine
DX: Z12.31 Encounter for screening mammogram for malignant neoplasm of breast (principal)
CPT/HCPCS: 77063; 77067

== ENCOUNTER 2018-07-04 08:50 | Emergency (ER) | payer MEDICARE, SELFPAY ==
[2018-07-04 08:51] VITALS: BP 144/70; PULSE 72; RESP 16; TEMP 36.5; O2SAT 99; BMI 34.2
[2018-07-04 08:53] VITALS: BP 130/73; PULSE 73; RESP 16; TEMP 36.5
--- NOTE | 2018-07-04 09:06 | ED.VISSUMM ---
- ER Visit Summary Date of Service: 07/04/18 Chief Complaint: Dental pain and left facial swelling History of Present Illness: The patient is a 72 F history of dementia, A. fib on Eliquis, insulin-dependent diabetes, hypertension and hypothyroidism. Patient states that her left upper dentures she lost it. She is a difficulty chewing. Pain and swelling to her jaw. States this is been going on 3-4 days. Denies any fever. States because she is not chewing well and makes it more difficult to swallow. Physical Examination: Elderly female. No acute distress. Vital signs are stable. Afebrile. HEENT exam she has mild swelling to her left cheek. Pupils are round reactive light. She has multiple poor, decayed and missing dentition. Several of her upper molars and left lower molars are decayed and eroded to the gumline. There is gingival welling. That is more diffuse. There is no drainable abscess. She has no trismus. There is tenderness to palpation. Posterior pharynx is unremarkable. The floor of her mouth is soft and nonswollen. Nontender. She has multiple teeth that need to be pulled. Neck nontender. No lymphadenopathy. Lungs clear to auscultation bilaterally. Heart irregularly irregular with a 4/6 systolic ejection murmur. Abdomen soft and nontender. Patient is moving all 4 extremities. Neurologically she is awake and alert. She has no focal motor deficits. She noticed [place] is coming in the present [place] States she does not know the day, year or month. Test Results: None Emergency Department Course and Treatment: Patient started on Pen-Vee K that her first dose in the ER. Treatment Plan: She needs a follow-up with a local oral surgeon to have her teeth resected. Nursing is application support developer her assisted living facility. Disposition: Discharge Impression: Dental cavities and soft tissue dental infection Anticoagulated on Eliquis due to a history of A. fib Dementia This note was generated with [employer] dictation software. It may contain incorrect words, spelling, and punctuation that were not noted in review of the chart prior to signing ED Disposition - Plan for ED Patient: Chief Complaint: Dental Referrals: Jim Padgett MD [Primary Care Provider] -
--- NOTE | 2018-07-04 09:10 | ED.DCSUM_ITS ---
- ER Visit Summary Date of Service: 07/04/18 Chief Complaint: Dental pain and left facial swelling History of Present Illness: The patient is a 72 F history of dementia, A. fib on Eliquis, insulin-dependent diabetes, hypertension and hypothyroidism. Patient states that her left upper dentures she lost it. She is a difficulty chewing. Pain and swelling to her jaw. States this is been going on 3-4 days. Denies any fever. States because she is not chewing well and makes it more difficult to swallow. Physical Examination: Elderly female. No acute distress. Vital signs are stable. Afebrile. HEENT exam she has mild swelling to her left cheek. Pupils are round reactive light. She has multiple poor, decayed and missing dentition. Several of her upper molars and left lower molars are decayed and eroded to the gumline. There is gingival welling. That is more diffuse. There is no drainable abscess. She has no trismus. There is tenderness to palpation. Posterior pharynx is unremarkable. The floor of her mouth is soft and nonswollen. Nontender. She has multiple teeth that need to be pulled. Neck nontender. No lymphadenopathy. Lungs clear to auscultation bilaterally. Heart irregularly irregular with a 4/6 systolic ejection murmur. Abdomen soft and nontender. Patient is moving all 4 extremities. Neurologically she is awake and alert. She has no focal motor deficits. She noticed [place] is coming in the present [place] States she does not know the day, year or month. Test Results: None Emergency Department Course and Treatment: Patient started on Pen-Vee K that her first dose in the ER. Treatment Plan: She needs a follow-up with a local oral surgeon to have her teeth resected. Nursing is plant control operator her assisted living facility. Disposition: Discharge Impression: Dental cavities and soft tissue dental infection Anticoagulated on Eliquis due to a history of A. fib Dementia This note was generated with light dictation software. It may contain incorrect words, spelling, and punctuation that were not noted in review of the chart prior to signing ED Disposition - Plan for ED Patient: Chief Complaint: Dental Referrals: Jim Padgett MD [Primary Care Provider] -
--- NOTE | 2018-07-04 09:10 | ED.DEP ---
ED Disposition - Plan for ED Patient: Disposition: Home or Assisted Living Chief Complaint: Dental Instructions: ED Cavity Dental, Dental Abscess Prescriptions: Penicillin Vk [Pen-Vee K 250MG] 500 mg PO 4X/DAY #40 tab Referrals: Jim Padgett MD [Primary Care Provider] - As Needed Hernan Brooks DDS [STAFF PHYSICIAN] - As soon as possible Additional Instructions: Penicillin 1 pill 4 times a day till gone. Call and follow-up with an oral surgeon like Dr. Brooks soon as possible to have those teeth removed.
--- NOTE | 2018-07-04 09:11 | ED.RN ---
0907 SPOKE WITH SUMEET ROSALES AT [facility]. NURSE STATED THAT SHE HAD NO INFO ON HER SON THAT THE PT WAS HOMELESS UPON ARRIVAL. THE NURSE STATED THAT IT IS NOT THEIR RESPONSIBILITY TO TRANSPORT. NURSE [phone].
[2018-07-04 09:19] VITALS: PULSE 60
[2018-07-04] MEDS: Penicillin Vk 250 MG Tablet 500 MG PO (09:22)
--- NOTE | 2018-07-04 09:29 | ED.RN ---
SPOKE WITH SUMEET, NURSE, INFORMED HER THAT PT RECEIVED PO ATB IN ED AND WILL BE TRANSPORTED BY [facility]. PT HAS HX OF DEMENTIA SO SHE QUALIFIES FOR TRANSPORT.
== END 2018-07-04 09:42 | disposition home or self-care (01) ==
PROVIDERS: Emergency Provider Emergency Medicine; Family Provider Family Medicine; PCP Family Medicine
DX: K02.9 Dental caries, unspecified (principal); K04.7 Periapical abscess without sinus; I48.91 Unspecified atrial fibrillation; F03.90 Unspecified dementia, unspecified severity, without behavioral disturbance, psychotic disturbance, mood disturbance, and anxiety; E11.9 Type 2 diabetes mellitus without complications; Z79.4 Long term (current) use of insulin; Z79.02 Long term (current) use of antithrombotics/antiplatelets
CPT/HCPCS: 99285

== ENCOUNTER 2018-08-24 20:48 | Emergency (ER) | payer MEDICARE, SELFPAY ==
[2018-08-24 20:50] VITALS: BP 146/66; PULSE 76; RESP 16; TEMP 36.3; O2SAT 97; BMI 37.5
--- NOTE | 2018-08-24 22:42 | ED.VISSUMM ---
- ER Visit Summary Date of Service: 08/24/18 Chief Complaint: Bleeding from dental extraction site History of Present Illness: The patient is a 73 F who had all of her upper teeth pulled 1 week ago per report. She restarted her Eliquis the following day. She has had 2 episodes of bleeding over the past week and was unable to control the bleeding tonight. Patient has a history of dementia, CHF, diabetes, hypertension, A. fib, hypothyroidism. Physical Examination: Vital signs unremarkable. Patient sitting upright in bed no acute distress. Head neck examination reveals 2 areas with fresh clot along the maxillary gums, one on either side. The side of the right has some mild oozing of blood and she feels like most the blood is from the right. Heart is regular. Lungs sounds clear. Test Results: [] Emergency Department Course and Treatment: A piece of gauze was folded and patient bit this between her gums on the right. On recheck bleeding is controlled at this time. I advised the patient that if she is to have recurrent bleeding she should buy on a piece of gauze for 10-15 minutes to stop the bleeding. She is sent home with a pack of gauze. She is to call her dentist tomorrow for follow-up. Treatment Plan: [] Disposition: Discharge Impression: Post dental extraction bleeding Addendum: Prior to the patient being discharged I was advised that the right upper extraction site and started to bleed again. Patient bit down on gauze pads again. TXA was ordered and was applied topically on the gauze pads and she bit into this. I did recheck her once in bleeding seem to be under good control. When I went back to recheck her for the final time the patient was gone. Reportedly her taxi arrived and she got up and left. She did not take her discharge paperwork. She had been advised to call her dentist tomorrow. This note was generated with [employer] dictation software. It may contain incorrect words, spelling, and punctuation that were not noted in review of the chart prior to signing ED Disposition - Plan for ED Patient: Disposition: Home or Assisted Living Instructions: ED Wound Check Post Op Bleeding Referrals: Jim Padgett MD [Primary Care Provider] - Additional Instructions: Call your dentist tomorrow for follow-up
[2018-08-24 22:43] VITALS: BP 123/59; PULSE 64; RESP 16; O2SAT 97
--- NOTE | 2018-08-24 22:51 | ED.RN ---
RN called for pt update. informed of being discharged. RN is going to check with her convention services manager about trying to find pt a ride home. son is at work.
--- NOTE | 2018-08-24 23:27 | ED.RN ---
called son, Jose, and left message regarding pt needing a ride back to [facility].
[2018-08-25 00:25] VITALS: BP 143/66; PULSE 74; RESP 16; O2SAT 98
--- NOTE | 2018-08-25 01:32 | ED.RN ---
PT MOUTH STARTED BLEEDING AGAIN, DR. SIMPSON WAS NOTIFIED, TRANEXAMIC ACID ORDERED, DR SIMPSON APPLIED IT TO THE BLEEDING EXTRACTION AREA ON GAUZE AND THE PT WAS TOLD TO CLENCH HER JAW AND HOLD THE GAUZE FOR PRESSURE. PRIOR TO HER STARTING TO BLEED AGAIN A CAB WAS CALLED. WHEN THIS RN WENT TO CHECK ON THE PT, THE PT APPARENTLY LEFT WITH THE LAUNDRY OR DRY CLEANERS COUNTER CLERK. NO DISCHARGE PAPERS WERE GIVEN. THE BLEEDING IN HER MOUTH WAS NOT REASSESSED SINCE THE PT LEFT.
== END 2018-08-25 01:39 | disposition home or self-care (01) ==
PROVIDERS: Emergency Provider Emergency Medicine; Family Provider Family Medicine; PCP Family Medicine
DX: K91.840 Postprocedural hemorrhage of a digestive system organ or structure following a digestive system procedure (principal); K08.409 Partial loss of teeth, unspecified cause, unspecified class; I48.91 Unspecified atrial fibrillation; Z79.02 Long term (current) use of antithrombotics/antiplatelets
CPT/HCPCS: 99285

== ENCOUNTER → 2018-09-07 14:23 | Outpatient (CLI) | payer MEDICARE, SELFPAY ==
[2018-08-24 20:50] VITALS: BMI 37.5
[2018-09-07 15:22] LABS: Absolute Lymphocyte Count 0.97 X10^3/ul (0.83-4.51); Absolute Neutrophil Count 3.4 X10^3/uL (2.0-7.7); Basophil# 0.01 X10^3/uL; Basophil% 0.2 % (0-1); Eosinophil# 0.17 X10^3/uL; Eosinophils% 3.5 % (0-5); Hemoglobin 12.9 g/dl (12.0-15.0); Lymphocyte # 0.97 X10^3/ul (4.0); Lymphocyte % 20.3 % (19-41); Mean Corp Hgb Conc 33.1 g/gl (32-36); Mean Corpuscular Hgb 33.2 pg (27.0-32.0); Mean Corpuscular Volume 100.5 fL (81-99); Mean Platelet Vol. 11.2 fl (6.2-12.0); Monocyte# 0.23 X10^3/uL; Monocyte% 4.8 % (0-10); Neutrophil # 3.38 X10^3/uL (2.7-7.7); Neutrophil % 70.6 % (47-70); Platelet Count 171 K/mm3 (150-450); RBC Distribution Width CV 13.3 % (11.6-14.6); RBC Distribution Width SD 47.7 fl (35.1-43.9); Red Blood Count 3.88 M/mm3 (4.2-5.4); White Blood Count 4.8 K/mm3 (4.4-11.0)
[2018-09-07 15:26] LABS: POSITIVE COUNT NO; POSITIVE DIFFERENTIAL NO; POSITIVE MORPHOLOGY NO
[2018-09-07 16:15] LABS: Vitamin D,25 Hydroxy 37.3 ng/mL (29.95-100.01)
[2018-09-07 16:27] LABS: Albumin, Serum 3.4 g/dL (3.2-5.0); BUN 14 mg/dL (7-18); BUN/Creat Ratio 13.3 RATIO (10-20); Creatinine, Serum 1.05 mg/dL (0.55-1.02); EST Glomerular Filtration Rate 54 mL/min (>60); Est Glom Filt Rate - Afr Amer 66 mL/min (>60); Glucose 180 mg/dL (74-106); Protein, Total 7.4 g/dL (6.4-8.2)
[2018-09-07 16:28] LABS: ALB/GLOB Ratio 0.8 RATIO (0.9-2.4); AST(SGOT) 25 U/L (15-37); Alanine Aminotransfer ALT/SGPT 25 U/L (13-56); Alkaline Phosphatase 65 U/L (45-117); Anion Gap 11 (5-15); Calcium,Total 8.5 mg/dL (8.5-10.1); Chloride 106 mmol/L (98-107); Magnesium 2.1 mg/dL (1.6-2.6); Potassium 3.7 mmol/L (3.5-5.1); Sodium Level 137 mmol/L (136-145); T4 Free Direct 0.99 ng/dL (0.76-1.46); Thyroid Stim Hormone (TSH) 1.52 uIU/mL (0.358-3.74)
== END ==
PROVIDERS: Family Provider Family Medicine; PCP Family Medicine; Visit Provider Family Medicine
DX: E11.9 Type 2 diabetes mellitus without complications (principal); I48.91 Unspecified atrial fibrillation; E03.9 Hypothyroidism, unspecified; E55.9 Vitamin D deficiency, unspecified
CPT/HCPCS: 36415; 80053; 82306; 83036; 83735; 84439; 84443; 85025

== ENCOUNTER 2018-12-19 12:06 | Emergency (ER) | payer MEDICARE, SELFPAY ==
[2018-12-19 12:07] VITALS: BP 147/61; PULSE 71; RESP 18; TEMP 37; O2SAT 100; BMI 34.4
[2018-12-19 12:41] LABS: Absolute Lymphocyte Count 1.12 X10^3/ul (0.83-4.51); Absolute Neutrophil Count 7.8 X10^3/uL (2.0-7.7); Basophil# 0.02 X10^3/uL; Basophil% 0.2 % (0-1); Eosinophil# 0.09 X10^3/uL; Hematocrit 39.5 % (37-47); Hemoglobin 13.3 g/dl (12.0-15.0); Lymphocyte # 1.12 X10^3/ul (4.0); Lymphocyte % 11.9 % (19-41); Mean Corp Hgb Conc 33.7 g/gl (32-36); Mean Corpuscular Hgb 31.9 pg (27.0-32.0); Mean Corpuscular Volume 94.7 fL (81-99); Mean Platelet Vol. 11.3 fl (6.2-12.0); Monocyte# 0.32 X10^3/uL; Monocyte% 3.4 % (0-10); Neutrophil # 7.78 X10^3/uL (2.7-7.7); Platelet Count 178 K/mm3 (150-450); RBC Distribution Width CV 13.6 % (11.6-14.6); RBC Distribution Width SD 44.7 fl (35.1-43.9); Red Blood Count 4.17 M/mm3 (4.2-5.4); White Blood Count 9.4 K/mm3 (4.4-11.0)
[2018-12-19 12:42] LABS: POSITIVE COUNT NO; POSITIVE DIFFERENTIAL NO; POSITIVE MORPHOLOGY NO
--- NOTE | 2018-12-19 13:28 | ED.VIS.GEN ---
History of Present Illness Chief Complaint: Dental Informant: Patient, [facility] Onset: Today Context: Sudden Onset Timing: Continuous Quality: Bleeding from lower gum Location: Lingular side gum inferior inner incisors Current Severity: Mild Maximum Severity: Mild Worsened by: Eliquis Relieved by: Nothing Associated Symptoms: None, patient does have dementia Narrative: Patient is a 73-year-old woman who had dental extraction several weeks ago. She presents because of bleeding from her gums. She is uncertain if she injured herself. She is not a good informant secondary to dementia. Examination reveals a puncture wound lingular side of gums inferior the inner incisors. There is no sub-lingular hematoma or fullness noted. There is no submental or submandibular lymphadenopathy noted. Prior similar symptoms: No Recent Illness/Hospitalization: No - Past Medical History (1) [facility] current use of anticoagulant Status: Acute (2) Diabetes Status: Acute (3) Chronic diastolic (congestive) heart failure Status: Chronic (4) Dementia in other diseases classified elsewhere without behavioral disturbance Status: Chronic (5) Hypothyroidism Status: Chronic (6) Persistent atrial fibrillation Status: Chronic Past Medical History - Allergies and Home Meds Allergies/Adverse Reactions: Allergies colchicine Allergy (Severe, Verified 12/19/18 12:06) HIVES ALLERGY PILLS Adverse Reaction (Uncoded 12/19/18 12:06) Unknown Primary Care Physician: Jim Padgett MD [Primary Care Provider] - Prior records reviewed: Yes Lives: Group Home Smoking Status: Never smoker Alcohol: None Review of Systems ROS: Unable to Obtain - Poor informant secondary to dementia. General: Denies: Chills, Fever Eyes: Denies: Visual changes - bilaterally, Blurred Vision - bilaterally ENT: Reports: - - She denies mouth pain. Denies: Rhinorrhea, Sore throat Cardiovascular: Denies: Chest pain Respiratory: Denies: Dyspnea Gastrointestinal: Denies: Nausea, Vomiting Hematologic: Denies: Easy bruising, Easy bleeding Allergy: Denies: Uticaria, Swelling of the mouth Physical Exam Vital Signs/Narrative: Vital Signs Temp Pulse Resp BP Pulse Ox 12/19/18 12:07 98.6 F 71 18 147/61 H 100 Inital Vital Signs reviewed: Yes General: Well nourished, Well developed, No Acute Distress Head: Normocephalic, Atraumatic Eyes: Perrl, EOMI. Negative for: Pale conjunctiva, Scleral icterus ENT: Moist mucous membranes, No rhinorrhea, TM's clear, - - There is a wound noted lingular side of lower jaw/gum. This is a site of bleeding. This appears to be traumatic. Neck: Supple, Nontender. Negative for: No lymphadenopathy, No JVD, - Cardiovascular: Regular rhythm, No murmurs, Irregular Respiratory: No distress, CTA bilaterally Skin: No Trauma. Negative for: Normal color, No rash Neurological: Alert, Cranial nerves II-XII grossly intact. Negative for: Oriented x3, Normal Strength, Normal Sensation Psychological: Negative for: Normal affect Diagnostic/Tx/Re-eval - Medical Decision Making CBC was obtained to assess H&H and platelet count. Will apply Jeffrey-Synephrine to gauze and applied to puncture site. Bleeding has stopped. She is been observed for an hour with no additional bleeding. Plan is to discharge and hold Eliquis for 24 to 48 hours. 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
--- NOTE | 2018-12-19 13:32 | ED.DCSUM_ITS ---
History of Present Illness Chief Complaint: Dental Informant: Patient, [facility] Onset: Today Context: Sudden Onset Timing: Continuous Quality: Bleeding from lower gum Location: Lingular side gum inferior inner incisors Current Severity: Mild Maximum Severity: Mild Worsened by: Eliquis Relieved by: Nothing Associated Symptoms: None, patient does have dementia Narrative: Patient is a 73-year-old woman who had dental extraction several weeks ago. She presents because of bleeding from her gums. She is uncertain if she injured herself. She is not a good informant secondary to dementia. Examination reveals a puncture wound lingular side of gums inferior the inner incisors. There is no sub-lingular hematoma or fullness noted. There is no submental or submandibular lymphadenopathy noted. Prior similar symptoms: No Recent Illness/Hospitalization: No - Past Medical History (1) [facility] current use of anticoagulant Status: Acute (2) Diabetes Status: Acute (3) Chronic diastolic (congestive) heart failure Status: Chronic (4) Dementia in other diseases classified elsewhere without behavioral disturbance Status: Chronic (5) Hypothyroidism Status: Chronic (6) Persistent atrial fibrillation Status: Chronic Past Medical History - Allergies and Home Meds Allergies/Adverse Reactions: Allergies colchicine Allergy (Severe, Verified 12/19/18 12:06) HIVES ALLERGY PILLS Adverse Reaction (Uncoded 12/19/18 12:06) Unknown Primary Care Physician: Jim Padgett MD [Primary Care Provider] - Prior records reviewed: Yes Lives: [facility] Smoking Status: Never smoker Alcohol: None Review of Systems ROS: Unable to Obtain - Poor informant secondary to dementia. General: Denies: Chills, Fever Eyes: Denies: Visual changes - bilaterally, Blurred Vision - bilaterally ENT: Reports: - - She denies mouth pain. Denies: Rhinorrhea, Sore throat Cardiovascular: Denies: Chest pain Respiratory: Denies: Dyspnea Gastrointestinal: Denies: Nausea, Vomiting Hematologic: Denies: Easy bruising, Easy bleeding Allergy: Denies: Uticaria, Swelling of the mouth Physical Exam Vital Signs/Narrative: Vital Signs Temp Pulse Resp BP Pulse Ox 12/19/18 12:07 98.6 F 71 18 147/61 H 100 Inital Vital Signs reviewed: Yes General: Well nourished, Well developed, No Acute Distress Head: Normocephalic, Atraumatic Eyes: Perrl, EOMI. Negative for: Pale conjunctiva, Scleral icterus ENT: Moist mucous membranes, No rhinorrhea, TM's clear, - - There is a wound noted lingular side of lower jaw/gum. This is a site of bleeding. This appears to be traumatic. Neck: Supple, Nontender. Negative for: No lymphadenopathy, No JVD, - Cardiovascular: Regular rhythm, No murmurs, Irregular Respiratory: No distress, CTA bilaterally Skin: No Trauma. Negative for: Normal color, No rash Neurological: Alert, Cranial nerves II-XII grossly intact. Negative for: Oriented x3, Normal Strength, Normal Sensation Psychological: Negative for: Normal affect Diagnostic/Tx/Re-eval - Medical Decision Making CBC was obtained to assess H&H and platelet count. Will apply Jeffrey-Synephrine to gauze and applied to puncture site. Bleeding has stopped. She is been observed for an hour with no additional bleeding. Plan is to discharge and hold Eliquis for 24 to 48 hours. ED Disposition - Plan for ED Patient: Disposition: Home or Assisted Living Diagnosis: Open wound of gum, middle or intermediate school principal current use of anticoagulant Instructions: Blood Thinner Pills: Your Guide to Using them Safely Referrals: Jim Padgett MD [Primary Care Provider] - As Needed Additional Instructions: Do not administer Eliquis for the next 48 hours.
[2018-12-19 14:36] VITALS: BP 136/65; PULSE 72; RESP 16; O2SAT 97
--- NOTE | 2018-12-19 14:44 | NURSING ---
SPOKE WITH NARCISO DEGROOT AT [facility], GAVE REPORT ABOUT PT, PT IS CLEARED FOR TRANSPORT BACK TO FACILITY.
== END 2018-12-19 14:59 | disposition home or self-care (01) ==
PROVIDERS: Emergency Provider Emergency Medicine; Family Provider Family Medicine; PCP Family Medicine
DX: S01.532A Puncture wound without foreign body of oral cavity, initial encounter (principal); F03.90 Unspecified dementia, unspecified severity, without behavioral disturbance, psychotic disturbance, mood disturbance, and anxiety; E11.9 Type 2 diabetes mellitus without complications; I50.32 Chronic diastolic (congestive) heart failure; E03.9 Hypothyroidism, unspecified; I48.1 Persistent atrial fibrillation; Z79.02 Long term (current) use of antithrombotics/antiplatelets; Z79.4 Long term (current) use of insulin; Z79.899 Other long term (current) drug therapy; X58.XXXA Exposure to other specified factors, initial encounter; Y93.9 Activity, unspecified; Y92.89 Other specified places as the place of occurrence of the external cause; Y99.8 Other external cause status
CPT/HCPCS: 85025; 99284

== ENCOUNTER 2018-12-19 21:54 | Observation (INO) | payer MEDICARE, SELFPAY ==
[2018-12-19 12:07] VITALS: BMI 34.4
[2018-12-19 21:55] VITALS: BP 128/94; PULSE 81; RESP 18; TEMP 36.2; O2SAT 96; BMI 31.8
[2018-12-19 22:55] LABS: Absolute Lymphocyte Count 1.35 X10^3/ul (0.83-4.51); Absolute Neutrophil Count 7.1 X10^3/uL (2.0-7.7); Basophil# 0.02 X10^3/uL; Basophil% 0.2 % (0-1); Eosinophil# 0.15 X10^3/uL; Eosinophils% 1.7 % (0-5); Hematocrit 37.9 % (37-47); Hemoglobin 12.8 g/dl (12.0-15.0); Lymphocyte # 1.35 X10^3/ul (4.0); Mean Corp Hgb Conc 33.8 g/gl (32-36); Mean Corpuscular Hgb 32.2 pg (27.0-32.0); Mean Corpuscular Volume 95.2 fL (81-99); Mean Platelet Vol. 11.2 fl (6.2-12.0); Monocyte# 0.35 X10^3/uL; Monocyte% 3.9 % (0-10); Neutrophil # 7.07 X10^3/uL (2.7-7.7); Neutrophil % 78.8 % (47-70); Platelet Count 183 K/mm3 (150-450); RBC Distribution Width CV 13.7 % (11.6-14.6); RBC Distribution Width SD 47.2 fl (35.1-43.9); Red Blood Count 3.98 M/mm3 (4.2-5.4)
[2018-12-19 22:56] LABS: POSITIVE COUNT NO; POSITIVE DIFFERENTIAL NO; POSITIVE MORPHOLOGY NO
[2018-12-19 23:02] LABS: International Normalized Ratio 1.3; Prothrombin Time (Protime)PT. 15.9 SECONDS (11.7-14.9)
[2018-12-19 23:09] LABS: Anion Gap 8 (5-15); BUN 26 mg/dL (7-18); BUN/Creat Ratio 22.4 RATIO (10-20); Calcium,Total 8.7 mg/dL (8.5-10.1); Chloride 108 mmol/L (98-107); Creatinine, Serum 1.16 mg/dL (0.55-1.02); EST Glomerular Filtration Rate 48 mL/min (>60); Est Glom Filt Rate - Afr Amer 59 mL/min (>60); Estimated Creatinine Clearance 33.14 ml/min; Glucose 195 mg/dL (74-106); Potassium 4.2 mmol/L (3.5-5.1); Sodium Level 140 mmol/L (136-145)
[2018-12-19 23:55] VITALS: BP 123/51; PULSE 77; RESP 15; O2SAT 96
[2018-12-20] VITALS (7 sets, daily range): BP systolic 119–145; BP diastolic 43–89; PULSE 65–80; RESP 15–20; TEMP 37–37.2; O2SAT 96–100; BMI 33.1; BMI 33.2
--- NOTE | 2018-12-20 01:06 | HP.PCM_ITS ---
Problem List (1) half-way current use of anticoagulant Status: Acute (2) Hypothyroidism Status: Chronic (3) Diabetes Status: Acute (4) Bleeding Status: Acute (5) Bleeding gums Status: Acute History of Present Illness Date of Admission: 12/20/18 Chief Complaint: bleeding gum The patient is a 73 year old F longterm patients with a significant history of chronic atrial fibrillation on Eliquis; and diabetes mellitus who presented for the second time on the same day to the emergency department because of bleeding gum. On her first emergency visit; pressure and Jeffrey-Synephrine was applied and patient was sent back to the longterm after the bleeding resolved. However because the patient resume bleeding she was sent back from the longterm. Patient denies any recent dental work. Reportedly patient was picking at her gum. Dr. Hernan Brooks, oral surgery was consulted from the ED. Per emergency department doctor Dr.Vincent Brooks recommended pressure with thrombin and then tea bag. This was initiated at the emergency department. However because the longterm did not have enough staff to make sure that tea bag will be kept in patient's mouth; patient was admitted. Per emergency department doctor Dr. Hernan Brooks will follow if necessary. Past Medical History Past Medical History (Chronic Problems): Chronic Problems (Last Reviewed 11/09/17 @ 20:44 by Kandice Roberts) Hypothyroidism (Chronic) Diabetes type 2, controlled (Chronic) Chronic diastolic (congestive) heart failure (Chronic) Persistent atrial fibrillation (Chronic) Dementia in other diseases classified elsewhere without behavioral disturbance (Chronic) Hypersomnia (Chronic) Medical History: Medical History (Last Reviewed 12/20/18 @ 02:09 by Humberto Herman MD) Hypothyroidism (Chronic) E03.9 Diabetes (Acute) E11.9 Diabetes type 2, controlled (Chronic) E11.9 Chronic diastolic (congestive) heart failure (Chronic) I50.32 Persistent atrial fibrillation (Chronic) I48.1 Dementia in other diseases classified elsewhere without behavioral disturbance (Chronic) F02.80 Hypersomnia (Chronic) G47.10 Allergies colchicine Allergy (Severe, Verified 12/19/18 12:06) HIVES ALLERGY PILLS Adverse Reaction (Uncoded 12/19/18 12:06) Unknown Home Medications: Ambulatory Orders Medication Instructions Recorded Ferrous Sulfate 325 mg PO QODAY 08/15/17 Levothyroxine [Synthroid] 50 mcg PO DAILY 08/15/17 Loratadine 10 mg PO DAILY 08/15/17 Ondansetron [Zofran Odt] 4 mg PO Q8H PRN PRN #10 tab 10/03/17 apixaban 5 mg tablet 5 mg PO BID tab 11/09/17 ascorbic acid (vitamin C) 500 mg 1 g PO DAILY tab 11/09/17 chewable tablet atorvastatin 40 mg tablet 40 mg PO QDAY 11/09/17 cholecalciferol (vitamin D3) 50,000 unit PO .COMPLEX 11/09/17 50,000 unit capsule insulin human U-100 NPH-regulr 48 unit SC BREAKFAST ml 11/09/17 70-30 mix 100 unit/mL subcutaneous susp melatonin 3 mg tablet 3 mg PO HS PRN 11/09/17 methenamine hippurate 1 gram tablet 1 g PO .COMPLEX 11/09/17 Acetaminophen [Pharbetol] 1,000 mg PO TID 12/19/18 Cyanocobalamin (Vitamin B-12) 1,000 mcg PO DAILY 12/19/18 [Vitamin B-12] Donepezil HCl 10 mg PO QHS 12/19/18 Insulin NPH Hum/Reg Insulin Hm 34 unit SQ DINNER 12/19/18 [Humulin 70-30 Vial] Surgical History: Surgical History (Last Reviewed 12/20/18 @ 02:09 by Humberto Herman MD) S/P [facility] Z90.710, Z90.722, Z90.79 Lives: Detention Smoking Status: Never smoker Alcohol: None - *Family History Paternal Family History: Family History (Last Reviewed 12/20/18 @ 02:09 by Humberto Herman MD) Sister Cancer History Items: Hypertension Maternal Family History: Family History (Last Reviewed 12/20/18 @ 02:09 by Humberto Herman MD) Sister Cancer History Items: Hypertension Review of Systems Constitutional: Denies: Chills, Fever, Weight Change HEENT: Denies: Head Aches, Sinus Congestion, Sinus Drainage Cardiovascular: Denies: Chest Pain, Palpitations Respiratory: Denies: Cough, Shortness of breath at rest, Sputum production Gastrointestinal: Denies: Abdominal Pain, Nausea, Vomiting Genitourinary: Denies: Dysuria Musculoskeletal: Denies: Joint Pain, Joint Tenderness Skin: Denies: Rash, Wounds Neurological: Denies: Numbness, Tingling, Focal weakness Psychiatric: Denies: Anxiety, Depression, Homicidal Ideations, Suicidal Ideations Hematologic/ Lymphatic: Denies: Easy Bruising, Easy Bleeding VTE Information - Inpt Only VTE Present on Admission: No VTE Mechan Device Prophylaxis: SCD's VTE Pharm Prophylaxis ordered?: No Patient Problems: Active and Suspected Problems (Last Reviewed 11/09/17 @ 20:44 by Kandice Roberts) Bleeding (Acute) Bleeding gums (Acute) - Physical Exam General: Alert, Oriented x3 - orented to year, not month., Cooperative HEENT: Atraumatic, PERRLA, EOMI, Normocephalic Oral: - - Poor dentition. Blood clot at posterior side of mid incisors. Oral cavity with blood stain. Tea bag was within oral cavity Neck: Supple, No JVD, Negative Carotid Bruits Lungs: Clear to auscultation, Normal air movement Cardiovascular: Regular rate, No murmurs Abdomen: Bowel Sounds Present, Soft, Non Tender Extremities: No edema, Capillary Refill Less than 3 Seconds Skin: No rashes, No breakdown Musculoskeletal: No Tenderness to Palpation of Joints or Extremities Neurological: Cranial nerves II-XII grossly intact Psych/Mental Status: Normal Affect, Appropriate Vital Signs Temp Pulse Resp BP Pulse Ox 97.1 F L 77 15 123/51 H 96 12/19/18 21:55 12/19/18 23:55 12/19/18 23:55 12/19/18 23:55 12/19/18 23:55 Oxygen Delivery Method Room Air Weight: 79 kg Body Mass Index (BMI) 31.8 Finger Stick Blood Glucose 134 Laboratory Tests Past 24 Hrs 12/19/18 12/19/18 12/19/18 22:47 22:47 22:47 WBC 9.0 RBC 3.98 L Hgb 12.8 Hct 37.9 MCV 95.2 MCH 32.2 H MCHC 33.8 RDW 13.7 RDW Differential 47.2 H Plt Count 183 MPV 11.2 Immature Gran % (Auto) 0.400 Neut % (Auto) 78.8 H Lymph % (Auto) 15.0 L [place] % (Auto) 3.9 Eos % (Auto) 1.7 Baso % (Auto) 0.2 Absolute Neuts (auto) 7.1 Absolute Lymphs (auto) 1.35 Total Counted Not Reportable PT 15.9 H INR 1.3 APTT 32.0 Sodium 140 Potassium 4.2 Chloride 108 H Carbon Dioxide 24.0 Anion Gap 8 BUN 26 H Creatinine 1.16 H Estim Creat Clear Calc 33.14 Est GFR (MDRD) Af Amer 59 L Est GFR (MDRD) Non-Af 48 L BUN/Creatinine Ratio 22.4 H Glucose 195 H Calcium 8.7 Assessment/Plan All Active Problems (Last Reviewed 11/09/17 @ 20:44 by Kandice Roberts) half-way current use of anticoagulant (Acute) Bleeding (Acute) Bleeding gums (Acute) Diabetes (Acute) The patient is a 73 year old F longterm patients with a significant history of chronic atrial fibrillation on Eliquis; and diabetes mellitus who presented for the second time on the same day to the emergency department because of bleeding gum. Bleeding gums H&H had mildly dropped from 13.3-12.8 on second emergency visit on the same day. Repeat H&H x2. Coagulation studies was unremarkable. We will keep patient n.p.o. for now. Hold Eliquis. Continue application of a tea bag to gum. If bleeding is uncontrolled consider Dr. Hernan Brooks Trend blood pressure Diabetes mellitus On presentation her blood glucose was not within goal. Correction scale insulin ordered. DVT prophylaxis SCD Code Visit OBSV E&M: 49669 Initial observation care L3
--- NOTE | 2018-12-20 01:35 | ED.VISSUMM ---
- ER Visit Summary Date of Service: 12/20/18 Chief Complaint: Bleeding from mouth History of Present Illness: The patient is a [address] Williamson. She is alert and oriented x1. She is a very poor informant. Per the note earlier today the patient had a recent dental procedure. She tells me that this was in July. She has bleeding from her mouth that began this morning. She denies any other complaints. Physical Examination: Vitals: Stable. Afebrile. General: Well-nourished and well-developed. Head: Normocephalic atraumatic. Mouth: At the junction between the mandibular central incisors and her gum there is a 1.5 cm linear defect with mild active bleeding. There is no suggestion of abscess. Neck: Supple, no lymphadenopathy. No JVD. Nontender. Cardiovascular: Regular rate and rhythm. No murmurs. Respiratory: No respiratory distress. Clear to auscultation bilaterally. Abdominal: Soft, nontender, nondistended, normal bowel sounds. No guarding, rebound, or peritoneal signs. Back: Nontender. Extremities: Nontender, no edema. Skin: Normal color, no rash. Neurologic: Alert and oriented ?3. Cranial nerves II through XII are intact. Normal strength and sensation. Psych: Normal affect. Test Results: CBC shows a hemoglobin of 12.8. This was 13.3 earlier today. Chem-7 shows a chloride of 108, BUN 26, creatinine 1.16, glucose 195. INR is 1.3. PTT is 32.0. Emergency Department Course and Treatment: Initially I placed lidocaine with epinephrine on this area. The bleeding did not resolve. She then had a 2 x 2 that had been soaked in thrombin placed and pressure was held for approximately 10 minutes. The bleeding did resolve. She had a tea bag placed over this. The patient is very confused and is unable to hold pressure on this consistently herself. Reviewing earlier today it appears that the bleeding resolved with Jeffrey-Synephrine. However, when she went back to assisted living she continued to manipulate this with her tongue and the bleeding began again. Treatment Plan: I discussed the patient with her son who states that she is typically very confused. She was also discussed with [facility] Jael who feel that at this time they do not have the staff to ensure that she keeps pressure on this. She was discussed with Dr. Brooks who suggested the above treatment and stated that if the bleeding does not resolve he will see her in the hospital. She was discussed with Dr. Brooks and will be admitted for further evaluation and treatment. Disposition: Admitted in improved condition. Impression: 1. Bleeding from gums. 2. Coagulopathy on Eliquis. 3. Dementia. This note was generated with Medudemation software. It may contain incorrect words, spelling, and punctuation that were not noted in review of the chart prior to signing ED Disposition - Plan for ED Patient: Referrals: Jim Padgett MD [Primary Care Provider] -
--- NOTE | 2018-12-20 01:39 | ED.DCSUM_ITS ---
- ER Visit Summary Date of Service: 12/20/18 Chief Complaint: Bleeding from mouth History of Present Illness: The patient is a [address] Williamson. She is alert and oriented x1. She is a very poor informant. Per the note earlier today the patient had a recent dental procedure. She tells me that this was in July. She has bleeding from her mouth that began this morning. She denies any other complaints. Physical Examination: Vitals: Stable. Afebrile. General: Well-nourished and well-developed. Head: Normocephalic atraumatic. Mouth: At the junction between the mandibular central incisors and her gum there is a 1.5 cm linear defect with mild active bleeding. There is no suggestion of abscess. Neck: Supple, no lymphadenopathy. No JVD. Nontender. Cardiovascular: Regular rate and rhythm. No murmurs. Respiratory: No respiratory distress. Clear to auscultation bilaterally. Abdominal: Soft, nontender, nondistended, normal bowel sounds. No guarding, rebound, or peritoneal signs. Back: Nontender. Extremities: Nontender, no edema. Skin: Normal color, no rash. Neurologic: Alert and oriented ?3. Cranial nerves II through XII are intact. Normal strength and sensation. Psych: Normal affect. Test Results: CBC shows a hemoglobin of 12.8. This was 13.3 earlier today. Chem-7 shows a chloride of 108, BUN 26, creatinine 1.16, glucose 195. INR is 1.3. PTT is 32.0. Emergency Department Course and Treatment: Initially I placed lidocaine with epinephrine on this area. The bleeding did not resolve. She then had a 2 x 2 that had been soaked in thrombin placed and pressure was held for approximately 10 minutes. The bleeding did resolve. She had a tea bag placed over this. The patient is very confused and is unable to hold pressure on this consistently herself. Reviewing earlier today it appears that the bleeding resolved with Jeffrey-Synephrine. However, when she went back to assisted living she continued to manipulate this with her tongue and the bleeding began again. Treatment Plan: I discussed the patient with her son who states that she is typically very confused. She was also discussed with [facility] Jael who feel that at this time they do not have the staff to ensure that she keeps pressure on this. She was discussed with Dr. Brooks who suggested the above treatment and stated that if the bleeding does not resolve he will see her in the [facility]. She was discussed with Dr. Brooks and will be admitted for further evaluation and treatment. Disposition: Admitted in improved condition. Impression: 1. Bleeding from gums. 2. Coagulopathy on Eliquis. 3. Dementia. This note was generated with Click[employer] dictation software. It may contain incorrect words, spelling, and punctuation that were not noted in review of the chart prior to signing ED Disposition - Plan for ED Patient: Referrals: Jim Padgett MD [Primary Care Provider] -
--- NOTE | 2018-12-20 03:13 | NURSING ---
[id number]
[2018-12-20] MEDS: Insulin Lispro 100 UNIT/ML INSULN.PEN SQ ×4 (06:11→20:54)
[2018-12-20 06:20] LABS: Bedside Glucose 162 mg/dL (70-110)
[2018-12-20 06:59] LABS: Hematocrit 35.4 % (37-47); Hemoglobin 11.7 g/dl (12.0-15.0)
--- NOTE | 2018-12-20 09:50 | CASEMGMT ---
Addendum entered by Gayathri Bradford 12/20/18 13:21: Physician is not discharging pt today. LIZZIE placed a call to [facility] and spoke with Iram and updated her that pt is staying today and will likely discharge tomorrow. SW placed a call to pt's son Jose and left him a message updating him that pt is staying at [facility] today and will likely discharge to [facility] tomorrow. Original Note: Social Work Note Pt is listed as being from [facility]. Physician states it is likely pt will be discharged back to [facility] today. LIZZIE placed a call to [facility] and spoke with Iram who confirms pt is able to return. SW was then transferred to [facility]. Per Jake pt does have a son named Jose but that Jose is not involved that much with pt and he has only been to facility once to visit pt. Jose is listed as next of kin on pt's facesheet. Per H+P, pt is confused and has history of dementia. LIZZIE did place a call to pt's son Jose, left message, informing him that pt will likely be discharged back to [facility] today. Plan: Return to [facility] once medically cleared Gayathri Bradford PLASTIC MIXER, INNER LAYER SCRUBBER TENDER
--- NOTE | 2018-12-20 11:48 | PCM.PN.HOSP ---
Patient Problems: Active and Suspected Problems (Last Reviewed 12/20/18 @ 02:09 by Humberto Herman MD) Bleeding (Acute) Bleeding gums (Acute) Subjective: Patient seen and examined. She was admitted in the early hours of this morning with a complaint of bleeding from her gums. Patient is on Eliquis and states she recently had a dental procedure most likely root canal. She told hospitalist that was done about 3 weeks ago but she told the nurses on the floor was earlier this year and told the EMS that was 1 week ago. She is currently n.p.o. and oral surgery recommended that she keeps a tea bag in her mouth to prevent the bleeding. Patient has no complaints. Bleeding is improved. She denies any lightheadedness or dizziness, palpitations, chest pain, diarrhea vomiting. Review of systems otherwise negative. Labs and vitals reviewed. Vitals/I&O's: Vital Signs Temp Pulse Resp BP Pulse Ox 98.8 F 72 16 119/54 L 97 12/20/18 08:40 12/20/18 08:45 12/20/18 08:40 12/20/18 08:40 12/20/18 08:40 Oxygen Delivery Method Room Air Weight: 169 lb 12.095 oz Body Mass Index (BMI) 33.1 Finger Stick Blood Glucose 134 Intake and Output for Last 24 Hours 12/18/18 12/19/18 12/20/18 23:59 23:59 23:59 Intake Total 0 / 0 Output Total 200 / 200 Balance -200 / -200 General: Alert, Cooperative, No apparent distress, - - oriented x1 HEENT: Atraumatic, PERRLA, EOMI, Normocephalic Oral: - - minimal bleeding seen from upper left jaw gum, where she had the root canal Neck: Supple, No JVD, Negative Carotid Bruits Lungs: Clear to auscultation, Normal air movement, No rhonchi, No wheeze, No rales Cardiovascular: Regular rate, Regular Rhythm, Normal S1, Normal S2, No murmurs Abdomen: Bowel Sounds Present, Soft, Non Tender, Non-Distended, No Hepato-splenomegaly Extremities: No clubbing, No cyanosis, No edema, Capillary Refill Less than 3 Seconds Skin: No rashes, No breakdown Musculoskeletal: No Tenderness to Palpation of Joints or Extremities Lymphatic: No Cervical, Supraclavicular, or Inguinal Adenopathy Neurological: Cranial nerves II-XII grossly intact, Neuro grossly intact, Motor Exam 5/5 strength throughout Psych/Mental Status: Normal Affect, Appropriate, Alert and oriented to time, place, person, mood and affect Laboratory Results 12/19/18 22:47: WBC 9.0, RBC 3.98 L, Hgb 12.8, Hct 37.9, MCV 95.2, MCH 32.2 H, MCHC 33.8, RDW 13.7, RDW Differential 47.2 H, Plt Count 183, MPV 11.2, Immature Gran % (Auto) 0.400, Neut % (Auto) 78.8 H, Lymph % (Auto) 15.0 L, [place] % (Auto) 3.9, Eos % (Auto) 1.7, Baso % (Auto) 0.2, Absolute Neuts (auto) 7.1, Absolute Lymphs (auto) 1.35, Total Counted Not Reportable 12/19/18 22:47: PT 15.9 H, INR 1.3, APTT 32.0 12/19/18 22:47: Sodium 140, Potassium 4.2, Chloride 108 H, Carbon Dioxide 24.0, Anion Gap 8, BUN 26 H, Creatinine 1.16 H, Estim Creat Clear Calc 33.14, Est GFR (MDRD) Af Amer 59 L, Est GFR (MDRD) Non-Af 48 L, BUN/Creatinine Ratio 22.4 H, Glucose 195 H, Calcium 8.7 12/20/18 05:24: Hgb 11.7 L, Hct 35.4 L 12/20/18 06:01: POC Glucose 162 H Current Medications Acetaminophen (Tylenol) 650 mg PO Q6H PRN PRN PRN Reason: Mild Pain (1-3)/Temp > 100.7 F Dextrose (D50w Syringe) 0 gm IV X1 PRN; Protocol PRN Reason: Hypoglycemia Glucagon () 1 mg IM .X1 PRN PRN Reason: Hypoglycemia Insulin Human Lispro (Humalog Kwikpen (Bkc)) 0 unit SQ Q6 HANNAH; Protocol Last Admin: 12/20/18 06:11 Dose: 1 u Melatonin (Melatonin) 3 mg PO QHS PRN PRN PRN Reason: INSOMNIA Ondansetron HCl (Zofran) 4 mg IV Q8H PRN PRN PRN Reason: NAUSEA/VOMITING Sodium Chloride () 5 - 15 ml IV UD PRN PRN Reason: SALINE FLUSH Medical Necessity - Tobacco Use Smoking Status: Never smoker Assessment/Plan All Active Problems (Last Reviewed 12/20/18 @ 02:09 by Humberto Herman MD) FPC current use of anticoagulant (Acute) Bleeding (Acute) Bleeding gums (Acute) Diabetes (Acute) 1. Bleeding gum likely traumatic from root canal. also exacerbated by being on eliquis bleeding has improved currently NPO; will start soft diet now continue holding eliquis and monitor consult oral surgery if bleeding recurs 2. Afib: rate and rhythm controlled. not on any rate or rhythm controlling medication per records. 3. Hyperlipidemia: On statin 4. Hypothyroidism: On Synthroid. 5. Dementia: On memantine and donepezil 6. Diabetes mellitus: on insulin DVT prophylaxis: SCDs. Eliquis on hold Code Visit OBSV E&M: 70235 Subsequent observation care L2
--- NOTE | 2018-12-20 11:53 | PN_ITS ---
Patient Problems: Active and Suspected Problems (Last Reviewed 12/20/18 @ 02:09 by Humberto Herman MD) Bleeding (Acute) Bleeding gums (Acute) Subjective: Patient seen and examined. She was admitted in the early hours of this morning with a complaint of bleeding from her gums. Patient is on Eliquis and states she recently had a dental procedure most likely root canal. She told hospitalist that was done about 3 weeks ago but she told the nurses on the floor was earlier this year and told the EMS that was 1 week ago. She is currently n.p.o. and oral surgery recommended that she keeps a tea bag in her mouth to prevent the bleeding. Patient has no complaints. Bleeding is improved. She denies any lightheadedness or dizziness, palpitations, chest pain, diarrhea vomiting. Review of systems otherwise negative. Labs and vitals reviewed. Vitals/I&O's: Vital Signs Temp Pulse Resp BP Pulse Ox 98.8 F 72 16 119/54 L 97 12/20/18 08:40 12/20/18 08:45 12/20/18 08:40 12/20/18 08:40 12/20/18 08:40 Oxygen Delivery Method Room Air Weight: 169 lb 12.095 oz Body Mass Index (BMI) 33.1 Finger Stick Blood Glucose 134 Intake and Output for Last 24 Hours 12/18/18 12/19/18 12/20/18 23:59 23:59 23:59 Intake Total 0 / 0 Output Total 200 / 200 Balance -200 / -200 General: Alert, Cooperative, No apparent distress, - - oriented x1 HEENT: Atraumatic, PERRLA, EOMI, Normocephalic Oral: - - minimal bleeding seen from upper left jaw gum, where she had the root canal Neck: Supple, No JVD, Negative Carotid Bruits Lungs: Clear to auscultation, Normal air movement, No rhonchi, No wheeze, No rales Cardiovascular: Regular rate, Regular Rhythm, Normal S1, Normal S2, No murmurs Abdomen: Bowel Sounds Present, Soft, Non Tender, Non-Distended, No Hepato- splenomegaly Extremities: No clubbing, No cyanosis, No edema, Capillary Refill Less than 3 Seconds Skin: No rashes, No breakdown Musculoskeletal: No Tenderness to Palpation of Joints or Extremities Lymphatic: No Cervical, Supraclavicular, or Inguinal Adenopathy Neurological: Cranial nerves II-XII grossly intact, Neuro grossly intact, Motor Exam 5/5 strength throughout Psych/Mental Status: Normal Affect, Appropriate, Alert and oriented to time, place, person, mood and affect Laboratory Results 12/19/18 22:47: WBC 9.0, RBC 3.98 L, Hgb 12.8, Hct 37.9, MCV 95.2, MCH 32.2 H, MCHC 33.8, RDW 13.7, RDW Differential 47.2 H, Plt Count 183, MPV 11.2, Immature Gran % (Auto) 0.400, Neut % (Auto) 78.8 H, Lymph % (Auto) 15.0 L, [place] % (Auto) 3.9, Eos % (Auto) 1.7, Baso % (Auto) 0.2, Absolute Neuts (auto) 7.1, Absolute Lymphs (auto) 1.35, Total Counted Not Reportable 12/19/18 22:47: PT 15.9 H, INR 1.3, APTT 32.0 12/19/18 22:47: Sodium 140, Potassium 4.2, Chloride 108 H, Carbon Dioxide 24.0, Anion Gap 8, BUN 26 H, Creatinine 1.16 H, Estim Creat Clear Calc 33.14, Est GFR (MDRD) Af Amer 59 L, Est GFR (MDRD) Non-Af 48 L, BUN/Creatinine Ratio 22.4 H, Glucose 195 H, Calcium 8.7 12/20/18 05:24: Hgb 11.7 L, Hct 35.4 L 12/20/18 06:01: POC Glucose 162 H Current Medications Acetaminophen (Tylenol) 650 mg PO Q6H PRN PRN PRN Reason: Mild Pain (1-3)/Temp > 100.7 F Dextrose (D50w Syringe) 0 gm IV X1 PRN; Protocol PRN Reason: Hypoglycemia Glucagon () 1 mg IM .X1 PRN PRN Reason: Hypoglycemia Insulin Human Lispro (Humalog Kwikpen (Bkc)) 0 unit SQ Q6 HANNAH; Protocol Last Admin: 12/20/18 06:11 Dose: 1 u Melatonin (Melatonin) 3 mg PO QHS PRN PRN PRN Reason: INSOMNIA Ondansetron HCl (Zofran) 4 mg IV Q8H PRN PRN PRN Reason: NAUSEA/VOMITING Sodium Chloride () 5 - 15 ml IV UD PRN PRN Reason: SALINE FLUSH Medical Necessity - Tobacco Use Smoking Status: Never smoker Assessment/Plan All Active Problems (Last Reviewed 12/20/18 @ 02:09 by Humberto Herman MD) alf current use of anticoagulant (Acute) Bleeding (Acute) Bleeding gums (Acute) Diabetes (Acute) 1. Bleeding gum likely traumatic from root canal. * also exacerbated by being on eliquis * bleeding has improved * currently NPO; will start soft diet now * continue holding eliquis and monitor * consult oral surgery if bleeding recurs * 2. Afib: rate and rhythm controlled. not on any rate or rhythm controlling medication per records. 3. Hyperlipidemia: On statin 4. Hypothyroidism: On Synthroid. 5. Dementia: On memantine and donepezil 6. Diabetes mellitus: on insulin DVT prophylaxis: SCDs. Eliquis on hold Code Visit OBSV E&M: 06670 Subsequent observation care L2
[2018-12-20 12:16] LABS: Bedside Glucose 157 mg/dL (70-110)
[2018-12-20 14:02] LABS: Hematocrit 35.5 % (37-47); Hemoglobin 11.8 g/dl (12.0-15.0)
[2018-12-20] MEDS: Insulin Human 75/25 Kwickpen 18 UNIT SC (17:10)
[2018-12-20 17:56] LABS: Bedside Glucose 256 mg/dL (70-110)
[2018-12-20 21:01] LABS: Bedside Glucose 186 mg/dL (70-110)
[2018-12-21] VITALS (8 sets, daily range): BP systolic 99–132; BP diastolic 47–68; PULSE 70–88; RESP 16–18; TEMP 36.7–37; O2SAT 95–98
[2018-12-21 05:45] LABS: Absolute Lymphocyte Count 1.48 X10^3/ul (0.83-4.51); Absolute Neutrophil Count 4.3 X10^3/uL (2.0-7.7); Basophil# 0.02 X10^3/uL; Basophil% 0.3 % (0-1); Eosinophil# 0.19 X10^3/uL; Hematocrit 34.7 % (37-47); Hemoglobin 11.4 g/dl (12.0-15.0); Lymphocyte # 1.48 X10^3/ul (4.0); Lymphocyte % 23.3 % (19-41); Mean Corp Hgb Conc 32.9 g/gl (32-36); Mean Corpuscular Hgb 31.5 pg (27.0-32.0); Mean Corpuscular Volume 95.9 fL (81-99); Mean Platelet Vol. 11.3 fl (6.2-12.0); Monocyte% 4.7 % (0-10); Neutrophil # 4.34 X10^3/uL (2.7-7.7); Neutrophil % 68.2 % (47-70); Platelet Count 160 K/mm3 (150-450); RBC Distribution Width CV 13.6 % (11.6-14.6); RBC Distribution Width SD 44.8 fl (35.1-43.9); Red Blood Count 3.62 M/mm3 (4.2-5.4); White Blood Count 6.4 K/mm3 (4.4-11.0)
[2018-12-21 05:47] LABS: POSITIVE COUNT NO; POSITIVE DIFFERENTIAL NO; POSITIVE MORPHOLOGY NO
[2018-12-21] MEDS: Insulin Human 75/25 Kwickpen 20 UNIT SC (08:52)
[2018-12-21] MEDS: Insulin Lispro 100 UNIT/ML INSULN.PEN SQ ×2 (08:53→11:54)
--- NOTE | 2018-12-21 09:29 | DCINST_ITS ---
- Discharge Diagnoses Current Active Problems: Current Active and Chronic Problems (Last Reviewed 12/20/18 @ 02:09 by Humberto Herman MD) Bleeding (Acute) Bleeding gums (Acute) You will use the following diet at home:: Cardiac Your food should be the consistency of: Regular Discharge Activity: Return to Normal Activity Weight Bearing Status: Weight bearing as tolerated Call your doctor if you observe: Fever of 101 or Higher, - - bleeding from gums Instructions: First Aid: Bleeding, Stages of Periodontal Disease Additional Instructions: hold eliquis today and tomorrow, till 12/22/18; if bleeding doesnt recur, resume eliquis on 12/23/18 Allergies/Adverse Reactions: Allergies colchicine Allergy (Severe, Verified 12/19/18 12:06) HIVES ALLERGY PILLS Adverse Reaction (Uncoded 12/19/18 12:06) Unknown Medications to take at Discharge Ferrous Sulfate 325 mg PO QHS 08/15/17 Levothyroxine [Synthroid] 50 mcg PO DAILY 08/15/17 Loratadine 10 mg PO DAILY 08/15/17 apixaban 5 mg tablet 5 mg PO BID tab 11/09/17 ascorbic acid (vitamin C) 500 mg chewable tablet 1 g PO QHS tab 11/09/17 atorvastatin 40 mg tablet 40 mg PO QDAY 11/09/17 insulin human U-100 NPH-regulr 70-30 mix 100 unit/mL subcutaneous susp 48 unit SC BREAKFAST ml 11/09/17 melatonin 3 mg tablet 3 mg PO QHS 11/09/17 methenamine hippurate 1 gram tablet 1 g PO QHS 11/09/17 Acetaminophen [Pharbetol] 1,000 mg PO TID 12/19/18 Cyanocobalamin (Vitamin B-12) [Vitamin B-12] 1,000 mcg PO DAILY 12/19/18 Donepezil HCl 10 mg PO QHS 12/19/18 Insulin NPH Hum/Reg Insulin Hm [Humulin 70-30 Vial] 34 unit SQ DINNER 12/19/18 Ergocalciferol (Vitamin D2) [Vitamin D2] 50,000 unit PO QWEEK 12/20/18 Memantine HCl [Memantine HCl ER] 28 mg PO DAILY 12/20/18 Primary Care Physician: Jim Padgett MD [Primary Care Provider] - Please follow up with your Primary Care Physician in: one week Test Results: Test results from this visit will be discussed in further detail at your follow- up appointment, if applicable. Proposed Discharge Date: 12/21/18
--- NOTE | 2018-12-21 09:55 | CASEMGMT ---
Addendum entered by Gayathri Bradford 12/21/18 10:35: RN updated this worker that transportation will need to be delayed till around 3:00pm. LIZZIE placed a call to [facility] and arranged transportation for 3:00pm now. LIZZIE placed a call to [facility] and spoke with Iram and updated her on new transportation time. RN updated. Original Note: Addendum entered by Gayathri Bradford 12/21/18 10:03: RN updated on transportation time. Original Note: Social Work Note Pt is discharging back to [facility] today. LIZZIE faxed discharge instructions to RN at [facility]. On discharge instructions it states for pt to hold eliquis today and tomorrow. LIZZIE spoke with RN, due to pt's dementia and mild confusion pt can be transported via cot. LIZZIE placed a call to [facility] and arranged transportation via cot at 11:00am. Transportation form provided to medical assistant secretary and copy placed on pt's chart. LIZZIE placed a call to [facility] and spoke with Iram and updated her on pt's discharge today and transportation time. LIZZIE placed a call to pt's son Jose and left message, informing him of pt's discharge back to [facility] today. Plan: Pt to discharge back to [facility] with [facility] transporting via cot at 11:00am Gayathri REYNA, INSIDE BARREL LATHE OPERATOR
--- NOTE | 2018-12-21 10:28 | NURSING ---
PER THERAPY, PT C/O BEING DIZZY WHEN UP WALKING, BP 107/47. DR CHACON NOTIFIED. ORDERED ORTHOSTATICS - THESE WERE COMPLETED & RESULTS GIVEN TO MD. ORDER FOR IV BOLUS & RECHECK BP.
[2018-12-21] MEDS: 0.9% Normal Saline 1,000 ML 999 ML IV (10:38)
[2018-12-21 10:50] LABS: Bedside Glucose 194 mg/dL (70-110)
[2018-12-21 10:55] LABS: Bedside Glucose 233 mg/dL (70-110)
--- NOTE | 2018-12-21 14:05 | PCM.DC.SUM ---
Discharge Date and Diagnosis - Problem List Patient Problems: Active and Suspected Problems (Last Reviewed 12/20/18 @ 02:09 by Humberto Herman MD) Bleeding (Acute) Bleeding gums (Acute) Date of Admission: 12/20/18 Date of Discharge: 12/21/18 - Primary Discharge Diagnosis Active and Suspected Problems (Last Reviewed 12/20/18 @ 02:09 by Humberto Herman MD) Bleeding (Acute) Bleeding gums (Acute) - Secondary Discharge Diagnosis Chronic Problems (Last Reviewed 12/20/18 @ 02:09 by Humberto Herman MD) Hypothyroidism (Chronic) Diabetes type 2, controlled (Chronic) Chronic diastolic (congestive) heart failure (Chronic) Persistent atrial fibrillation (Chronic) Dementia in other diseases classified elsewhere without behavioral disturbance (Chronic) Hypersomnia (Chronic) Hospital Course and Treatment Operations: None Procedures: None Summary of Care Provided: The patient is a 73 year old F with a past medical history of chronic A. fib on Eliquis and diabetes mellitus as well as hypothyroidism. She was admitted through the ED on 12/20/2018 with a complaint of bleeding gums. Patient had been seen earlier on the day of admission in the ED for similar complaints. At the first visit, pressure was applied and Jeffrey-Synephrine was applied and she was sent back to a custodial after the bleeding resolved. However bleeding recurred and so she came back to the ED. Patient stated that she had recently had a tooth pulled. She was not exactly sure about the time that she had a root canal done as she as well as it was 1 week prior and had told the EMS it was 3 weeks prior and had also told in [place] was a few months prior to her admission. Cognition panel was within normal limits. Oral surgeon was called from the ED who recommended patient have oral thrombin applied and if this is not working to have a tea bag applied to that area. Patient had a tea bag applied to the bleeding point and this helped resolve bleeding. She was admitted for observation for bleeding gums likely due to Eliquis. Patient remained stable and bleeding stopped. Eliquis was held. She was discharged back to a custodial on 12/21/2018. On day of discharge, patient complained of some dizziness. Orthostatics checked was positive. She was hydrated with a liter of normal saline. She felt much better and after eating lunch patient felt much more improved and was able to get up and ambulate. She was discharged to a custodial on 12/18/2018. She was counseled to hold Eliquis for 2 days until 12/22/2018 and if bleeding did not recur she could resume Eliquis on 12/23/2018. Patient seen and examined prior to discharge. Dizziness that she had complained of earlier had resolved. Review of systems otherwise negative. Labs and vitals reviewed. Home medication reviewed and reconciled. o/e: Vital Signs Height 5 ft Weight: 169 lb 12.095 oz Weight in Pounds 169.8 lbs Pulse Ox 96 Temperature 98.1 F Pulse Rate [Standing] 88 Pulse Rate [Sitting] 76 Pulse Rate [Lying] 77 Pulse Rate 72 Respiratory Rate 18 Blood Pressure [Standing] 99/68 Blood Pressure [Sitting] 132/65 Blood Pressure [Lying] 122/56 Blood Pressure 127/67 Blood Pressure Position Semi-Fowlers General: Alert, Cooperative, No apparent distress, - - oriented x1 HEENT: Atraumatic, PERRLA, EOMI, Normocephalic Oral: - - minimal bleeding seen from upper left jaw gum, where she had the root canal Neck: Supple, No JVD, Negative Carotid Bruits Lungs: Clear to auscultation, Normal air movement, No rhonchi, No wheeze, No rales Cardiovascular: Regular rate, Regular Rhythm, Normal S1, Normal S2, No murmurs Abdomen: Bowel Sounds Present, Soft, Non Tender, Non-Distended, No Hepato-splenomegaly Extremities: No clubbing, No cyanosis, No edema, Capillary Refill Less than 3 Seconds Skin: No rashes, No breakdown Musculoskeletal: No Tenderness to Palpation of Joints or Extremities Lymphatic: No Cervical, Supraclavicular, or Inguinal Adenopathy Neurological: Cranial nerves II-XII grossly intact, Neuro grossly intact, Motor Exam 5/5 strength throughout Psych/Mental Status: Normal Affect, Appropriate, Alert and oriented to time, place, person, mood and affect Plan as above. Patient Problems: Active and Suspected Problems (Last Reviewed 12/20/18 @ 02:09 by Humberto Herman MD) Bleeding (Acute) Bleeding gums (Acute) - Physical Exam Vital Signs Temp Pulse Resp BP Pulse Ox 98.1 F 77 18 122/56 H 96 12/21/18 07:45 12/21/18 12:44 12/21/18 07:45 12/21/18 12:44 12/21/18 07:45 Oxygen Delivery Method Room Air Weight: 169 lb 12.095 oz Body Mass Index (BMI) 33.1 Finger Stick Blood Glucose 134 Orthostatic Vital Signs Start: 12/21/18 10:21 Freq: q24h Status: Active Protocol: Activity Type Activity Date Activity User E-Sign Co-Sign Detail Recorded Client Recorded Date Recorded By Document 12/21/18 12:44 [facility] [id number] 12/21/18 12:49 S 12/21/18 12:44 Orthostatic Vitals Standing -Blood Pressure (90/60-120/80) 99/68 -Extremity Use Right Arm -Pulse Rate (60-100) 88 Sitting -Blood Pressure (90/60-120/80) 132/65 H -Extremity Use Right Arm -Pulse Rate (60-100) 76 Lying -Blood Pressure (90/60-120/80) 122/56 H -Extremity Use Right Arm -Pulse Rate (60-100) 77 Intake and Output for Last 24 Hours 12/19/18 12/20/18 12/21/18 23:59 23:59 23:59 Intake Total 500 / 500 1720 / 1720 Output Total 700 / 700 Balance -200 / -200 1720 / 1720 Laboratory Tests Past 24 Hrs 12/21/18 05:10 WBC 6.4 RBC 3.62 L Hgb 11.4 L Hct 34.7 L MCV 95.9 MCH 31.5 MCHC 32.9 RDW 13.6 RDW Differential 44.8 H Plt Count 160 MPV 11.3 Immature Gran % (Auto) 0.500 Neut % (Auto) 68.2 Lymph % (Auto) 23.3 Piatt % (Auto) 4.7 Eos % (Auto) 3.0 Baso % (Auto) 0.3 Absolute Neuts (auto) 4.3 Absolute Lymphs (auto) 1.48 Total Counted Not Reportable POC Glucose 12/21/18 12/21/18 12/20/18 10:47 07:43 20:49 POC Glucose 233 H 194 H 186 H 12/20/18 17:06 POC Glucose 256 H Discharge Diet: Low fat/ Low Cholesterol Discharge Activity: Return to Normal Activity Weight Bearing Status: Weight bearing as tolerated Call your doctor if you observe: Fever of 101 or Higher, - - bleeding from gums Home Medications: Medications to take at Discharge Ferrous Sulfate 325 mg PO QHS 08/15/17 Levothyroxine [Synthroid] 50 mcg PO DAILY 08/15/17 Loratadine 10 mg PO DAILY 08/15/17 apixaban 5 mg tablet 5 mg PO BID tab 11/09/17 ascorbic acid (vitamin C) 500 mg chewable tablet 1 g PO QHS tab 11/09/17 atorvastatin 40 mg tablet 40 mg PO QDAY 11/09/17 insulin human U-100 NPH-regulr 70-30 mix 100 unit/mL subcutaneous susp 48 unit SC BREAKFAST ml 11/09/17 melatonin 3 mg tablet 3 mg PO QHS 11/09/17 methenamine hippurate 1 gram tablet 1 g PO QHS 11/09/17 Acetaminophen [Pharbetol] 1,000 mg PO TID 12/19/18 Cyanocobalamin (Vitamin B-12) [Vitamin B-12] 1,000 mcg PO DAILY 12/19/18 Donepezil HCl 10 mg PO QHS 12/19/18 Insulin NPH Hum/Reg Insulin Hm [Humulin 70-30 Vial] 34 unit SQ DINNER 12/19/18 Ergocalciferol (Vitamin D2) [Vitamin D2] 50,000 unit PO QWEEK 12/20/18 Memantine HCl [Memantine HCl ER] 28 mg PO DAILY 12/20/18 Primary Care Physician: Jim Padgett MD [Primary Care Provider] - Please follow up with your Primary Care Physician in: one week Patient Instructions: First Aid: Bleeding, Stages of Periodontal Disease Disposition: Halfway facility Minutes spent on discharge:: 40 Patient Condition:: Stable Medical Necessity - Tobacco Use Smoking Status: Never smoker Meaningful Use Info Meaningful Use Diagnoses (Choose all that apply): None applicable Code Visit Inpatient E&M: 12351 Disch Hosp
--- NOTE | 2018-12-21 15:18 | NURSING ---
REPORT CALLED TO [facility]
== END 2018-12-21 15:00 | disposition home or self-care (01) ==
LOC: ED 22:42 → MS3 12-20 01:40
PROVIDERS: Admitting Provider Hospitalist; Emergency Provider Emergency Medicine; Family Provider Family Medicine; PCP Family Medicine; Visit Provider Student in an Organized Health Care Education/Training Program
DX: K06.8 Other specified disorders of gingiva and edentulous alveolar ridge (principal); E03.9 Hypothyroidism, unspecified; E11.9 Type 2 diabetes mellitus without complications; I48.1 Persistent atrial fibrillation; I50.32 Chronic diastolic (congestive) heart failure; F03.90 Unspecified dementia, unspecified severity, without behavioral disturbance, psychotic disturbance, mood disturbance, and anxiety; Z79.899 Other long term (current) drug therapy; Z79.4 Long term (current) use of insulin; D68.32 Hemorrhagic disorder due to extrinsic circulating anticoagulants; T45.515A Adverse effect of anticoagulants, initial encounter; E78.5 Hyperlipidemia, unspecified
CPT/HCPCS: 36415; 80048; 82962; 85014; 85018; 85025; 85610; 85730; 96360; 97162; 97165; 97530; 99218; 99285; J7030; A4216; G0378

== ENCOUNTER → 2019-02-01 | Outpatient (CLI) | payer MEDICARE, MEDICAID, SELFPAY ==
[2018-12-20 02:29] VITALS: BMI 33.1
--- NOTE | 2019-02-01 15:03 | RAD_ITS ---
STUDY: X-RAY - LUMBAR SPINE REASON FOR EXAM: Female, 73 years old. Lumbar degenerative disease TECHNIQUE: 5 view(s) of the lumbar spine were obtained. COMPARISON: Previous study of 02/10/2018 FINDINGS: Normal lumbar lordosis. There is a mild lumbar levoscoliosis. There is a grade 1 anterolisthesis of L4 relative to L5, stable in the interval. There is diffuse endplate spondylosis. There is multi-level degenerative disc disease with multi-level disc space narrowing. There are calcified plaques of the abdominal aorta. RAD/L/S Spine Min 4 Views IMPRESSION: Grade 1 anterolisthesis of L4 relative to L5. Multilevel degenerative changes as detailed above. Mild lumbar levoscoliosis. Findings are similar to the previous study. Electronically Signed: Delbert Zhang MD at 22:01 EDT , Service support ,
--- NOTE | 2019-02-01 15:03 | RAD_ITS ---
STUDY: X-RAY - SACROILIAC JOINTS REASON FOR EXAM: Female, 73 years old. Degenerative disc disease of lumbar spine. TECHNIQUE: 3 view(s) of the sacroiliac joints were obtained. COMPARISON: None. FINDINGS: Normal bilateral sacroiliac joints. Normal visualized sacral ala and sacrum. Normal visualized iliac bones. Normal visualized soft tissue structures. RAD/S-I Jts 3 or More Views IMPRESSION: Normal x-ray examination of the bilateral sacroiliac joints. Electronically Signed: Delbert Zhang MD at 22:03 EDT , Service support ,
== END | disposition home or self-care (01) ==
LOC: MTRAD 15:01
PROVIDERS: Family Provider Family Medicine; PCP Family Medicine; Referring Provider Family Medicine; Visit Provider Family Medicine
DX: M51.36 Other intervertebral disc degeneration, lumbar region (principal)
CPT/HCPCS: 72110; 72202

== ENCOUNTER → 2019-03-22 | Outpatient (CLI) | payer MEDICARE, MEDICAID, SELFPAY ==
[2018-12-20 02:29] VITALS: BMI 33.1
--- NOTE | 2019-03-22 10:33 | RAD_ITS ---
STUDY: X-RAY - LEFT FOOT CLINICAL: Female, 73 years old. Pain and bruising over the fourth metatarsal and fourth toe. TECHNIQUE: 3 view(s) of the foot. COMPARISON: None. FINDINGS: No apparent acute fracture. No osseous destruction. Chronic healed fracture midshaft of the fourth metatarsal. Alignment anatomic. Mild degenerative changes. Soft tissues unremarkable. RAD/Foot min 3 Views IMPRESSION: No acute osseous abnormality. Electronically Signed: Delbert Griggs, at 23:22 EDT Tel , Service support ,
== END | disposition home or self-care (01) ==
LOC: MTRAD 10:32
PROVIDERS: Family Provider Family Medicine; PCP Family Medicine; Referring Provider Family Medicine; Visit Provider Family Medicine
DX: M79.675 Pain in left toe(s) (principal)
CPT/HCPCS: 73630

== ENCOUNTER → 2019-06-13 12:20 | Outpatient (CLI) | payer MEDICARE, MEDICAID, SELFPAY ==
[2019-06-01 08:39] VITALS: BMI 33.9
--- NOTE | 2019-06-13 12:24 | ECHOD_ITS ---
Reason For Study: ARRHYTHMIA Procedure This was a 2D Doppler, Color Flow transthoracic echocardiogram. The study was technically difficult. Exam performed in department. Left Ventricle Normal LV size. Left ventricular systolic function is normal. The estimated ejection fraction is 70 %. Stage 1 diastolic dysfunction. No regional wall motion abnormalities noted. Right Ventricle Normal RV size. Normal systolic function. Atria The left atrium is mildly enlarged. Normal right atrium. Mitral Valve There is mild to moderate mitral annular calcification. Mild (1+) eccentric mitral valve insufficiency. Tricuspid Valve Normal tricuspid valve. Mild (1+) tricuspid valve insufficiency. Pulmonary artery systolic pressure is 26 mmHg. Aortic Valve Normal aortic valve. Mild (1+) aortic valve insufficiency. Pulmonic Valve Normal pulmonic valve. Great Vessels Normal aortic root. The pulmonary artery is normal size. Normal inferior vena cava. Pericardium/Pleural No pericardial effusion. MMode/2D Measurements & Calculations LVIDd: 4.0 cm IVSd: 0.96 cm LVOT diam: 1.8 cm LVIDs: 2.5 cm LVPWd: 1.1 cm LVOT area: 2.7 cm2 RVDd: 3.7 cm FS: 37.0 % Ao root diam: 3.9 cm LAV(MOD-bp): 67.5 ml LA A4 area: 20.6 cm2 LAV(MOD-bp) Indexed: 39.8 ml/m2 LAV(MOD-sp2): 66.9 ml LAV(MOD-sp4): 63.5 ml LA dimension(2D): 4.6 cm RA A4 area: 12.7 cm2 Time Measurements MV dec time: 0.45 sec Doppler Measurements & Calculations MV E max jacob: 96.8 cm/sec Lat Peak E' Jacob: 5.6 cm/sec Med Peak E' Jacob: 4.1 cm/sec MV A max jacob: 140.5 cm/sec E/E' lat: 17.2 E/E' med: 23.8 MV E/A: 0.69 MV V2 max: 152.0 cm/sec Ao V2 max: 196.5 cm/sec LV V1 max: 154.3 cm/sec MV max P.2 mmHg Ao max P.4 mmHg LV V1 max P.5 mmHg MV V2 mean: 71.5 cm/sec Ao V2 mean: 139.2 cm/sec LV V1 mean P.9 mmHg MV mean P.6 mmHg Ao mean P.7 mmHg LV V1 mean: 115.8 cm/sec MV V2 VTI: 51.0 cm Ao V2 VTI: 44.8 cm LV V1 VTI: 38.2 cm MVA(VTI): 2.0 cm2 TARUN(I,D): 2.3 cm2 TARUN(V,D): 2.1 cm2 SV(LVOT): 101.7 ml PA V2 max: 111.5 cm/sec TR max jacob: 238.7 cm/sec TR max P.9 mmHg MV P1/2t-pr_phl: 119.2 msec Interpretation Summary Normal LV size. Left ventricular systolic function is normal. The estimated ejection fraction is 70 %. Stage 1 diastolic dysfunction. Mild (1+) eccentric mitral valve insufficiency. Mild (1+) aortic valve insufficiency. Ordering Physician: Fabian Rebolledo Referring Physician: SAYRA SHANE Performed By: Mei Bernal, RDCS, RVT
== END ==
PROVIDERS: Family Provider Family Medicine; PCP Family Medicine; Referring Provider Internal Medicine Cardiovascular Disease; Visit Provider Internal Medicine Cardiovascular Disease
DX: I35.0 Nonrheumatic aortic (valve) stenosis (principal); I48.0 Paroxysmal atrial fibrillation
CPT/HCPCS: 93225; 93226; 93306

== ENCOUNTER → 2019-07-26 07:41 | Outpatient (CLI) | payer MEDICARE, SELFPAY ==
[2019-06-01 08:39] VITALS: BMI 33.9
--- NOTE | 2019-07-26 07:50 | BI_ITS ---
MAMMOGRAPHY - BILATERAL SCREENING REASON FOR EXAM: Female, 73 years old. Routine annual screening examination. PERTINENT HISTORY: Sister with breast cancer. TECHNIQUE: Digital bilateral breast lyle (3D mammographic acquisition) in the CC and MLO projections. 2-D mediolateral oblique (MLO) and craniocaudad (CC) views of both breasts were obtained. CAD: Full Field Digital Mammography with Computer Added Detection was performed. COMPARISON: Comparison is made with prior study dated June 04, 2018. FINDINGS: Breast Composition: There are scattered areas of fibroglandular density. There are no dominant masses or suspicious calcifications. No other significant abnormalities are identified. There has been no significant change since the prior study. BI/SCREEN MAMM (CAD) W/LYLE BILAT IMPRESSION: Stable bilateral screening mammogram. Yearly follow-up mammogram recommended. (A) ASSESSMENT CATEGORY: BIRADS Category 1: Negative. A letter regarding these results will be sent to the patient by the facility within 30 days. Approximately 10% of breast cancers are not detected by mammography. A normal mammogram should not delay biopsy of a clinically suspicious abnormality. [id number] Electronically Signed: Jayro Brandon, at 8:48 EST , Service support ,
== END ==
PROVIDERS: Family Provider Family Medicine; PCP Family Medicine; Referring Provider Family Medicine; Visit Provider Family Medicine
DX: Z12.31 Encounter for screening mammogram for malignant neoplasm of breast (principal)
CPT/HCPCS: 77063; 77067

== ENCOUNTER → 2019-08-03 15:15 | Outpatient (CLI) | payer MEDICARE, SELFPAY ==
[2019-06-01 08:39] VITALS: BMI 33.9
--- NOTE | 2019-08-03 15:19 | RAD_ITS ---
STUDY: X-RAY - ABDOMEN/PELVIS REASON FOR EXAM: Female, 73 years old. Abdominal pain. TECHNIQUE: AP supine and upright views of the abdomen and pelvis. COMPARISON: None. FINDINGS: Normal visualized lung bases. There is an unremarkable bowel gas pattern with gas seen to the rectosigmoid. There is no demonstrated free abdominal air. The visualized liver, spleen and kidneys are grossly normal in size and morphology. Phleboliths in the pelvis. Marked vascular calcification. Osteopenia with lumbar spondylosis. RAD/Abd Inc Decub and/or Erect IMPRESSION: No acute abnormality of the abdomen or pelvis. Electronically Signed: Wagner Villa MD at 16:30 EST , Service support ,
[2019-08-03 16:32] LABS: Absolute Lymphocyte Count 1.17 X10^3/uL (0.83-4.51); Absolute Neutrophil Count 4.6 X10^3/uL (2.0-7.7); Basophil# 0.03 X10^3/uL; Basophil% 0.5 % (0-1); Eosinophil# 0.09 X10^3/uL; Eosinophils% 1.5 % (0-5); Hematocrit 40.9 % (37-47); Hemoglobin 13.4 g/dL (12.0-15.0); Lymphocyte # 1.17 X10^3/ul (4.0); Lymphocyte % 18.9 % (19-41); Mean Corp Hgb Conc 32.8 g/dL (32-36); Mean Corpuscular Hgb 32.1 pg (27.0-32.0); Mean Corpuscular Volume 98.1 fL (81-99); Mean Platelet Vol. 11.8 fl (6.2-12.0); Monocyte# 0.32 X10^3/uL; Monocyte% 5.2 % (0-10); NRBC Flagged by Analyzer 0 % (0-5); Neutrophil # 4.56 X10^3/uL (2.7-7.7); Neutrophil % 73.4 % (47-70); Platelet Count 173 K/mm3 (150-450); RBC Distribution Width CV 13.7 % (11.6-14.6); Red Blood Count 4.17 M/mm3 (4.2-5.4); White Blood Count 6.2 K/mm3 (4.4-11.0)
[2019-08-03 17:17] LABS: Hemoglobin A1c 6.2 % (4.2-6.3)
[2019-08-03 17:50] LABS: ALB/GLOB Ratio 0.8 RATIO (0.9-2.4); AST(SGOT) 23 U/L (15-37); Alanine Aminotransfer ALT/SGPT 36 U/L (13-56); Albumin, Serum 3.1 g/dL (3.2-5.0); Alkaline Phosphatase 107 U/L (45-117); Anion Gap 6 (5-15); BUN 16 mg/dL (7-18); BUN/Creat Ratio 13.3 RATIO (10-20); Calcium,Total 8.5 mg/dL (8.5-10.1); Chloride 111 mmol/L (98-107); EST Glomerular Filtration Rate 46 mL/min (>60); Est Glom Filt Rate - Afr Amer 56 mL/min (>60); Glucose 431 mg/dL (74-106); Magnesium 2.3 mg/dL (1.6-2.6); Potassium 3.6 mmol/L (3.5-5.1); Protein, Total 7.1 g/dL (6.4-8.2); Sodium Level 138 mmol/L (136-145); T4 Free Direct 0.82 ng/dL (0.76-1.46); Thyroid Stim Hormone (TSH) 1.97 uIU/mL (0.358-3.74)
== END ==
PROVIDERS: PCP Family Medicine; Referring Provider Family Medicine; Visit Provider Family Medicine
DX: R10.9 Unspecified abdominal pain (principal); E11.9 Type 2 diabetes mellitus without complications; I48.91 Unspecified atrial fibrillation; E03.9 Hypothyroidism, unspecified
CPT/HCPCS: 36415; 74019; 80053; 83036; 83735; 84439; 84443; 85025

== ENCOUNTER 2019-08-03 16:05 | Observation (INO) | payer MEDICARE, MEDICAID, SELFPAY ==
[2019-06-01 08:39] VITALS: BMI 33.9
[2019-08-03 16:06] VITALS: BP 166/55; PULSE 45; RESP 16; TEMP 36.6; O2SAT 100; BMI 32.6
--- NOTE | 2019-08-03 16:19 | RAD_ITS ---
STUDY: X-RAY CHEST REASON FOR EXAM: Female, 73 years old. Abdominal pain with shortness of breath. TECHNIQUE: Frontal and lateral views of the chest. COMPARISON: October 03, 2017 FINDINGS: Stable low volume inspiration. There is no demonstrated pleural abnormality. Cardiomegaly with left ventricular contour unchanged. Mitral valve annulus calcification is unchanged. Normal mediastinum and kasey. Normal visualized pulmonary arteries. Aortic tortuosity with calcification unchanged. Stable thoracolumbar spondylosis. Normal visualized ribs, clavicles, and shoulders. There is no demonstrated abnormality of the visualized soft tissue structures of the upper abdomen. RAD/Chest PA and Lateral IMPRESSION: Stable chest with no acute superimposed finding. Electronically Signed: Wagner Villa MD at 17:19 EST , Service support ,
--- NOTE | 2019-08-03 16:21 | ED.DCSUM_ITS ---
- ER Visit Summary Date of Service: 08/03/19 Chief Complaint: Vaginal bleeding History of Present Illness: The patient is a 73 F who presents for complaint of vaginal bleeding for the past week. Patient has a history of dementia and is a poor historian. Patient states she has been having bright red vaginal bleeding for a week. Patient states nothing makes it better or worse. Nursing staff reports that the patient has been evaluated for this by her primary care physician and there has not been any vaginal bleeding noted. Patient lives in assisted living and her primary care physician feels that she may need to be placed in a retirement unit. Patient does admit to some shortness of breath. Patient also admits to some dysuria, hematuria, and frequency. Physical Examination: Vital signs are stable except for heart rate of 45. Patient is afebrile. Patient is in no acute distress. Oral mucosa is pink and moist. Neck is supple. Trachea is midline. There is no JVD. Heart was regular and bradycardic. Lungs are clear and equal bilaterally. Abdomen is soft. Bowel sounds are normal. There is no tenderness. Cranial nerves II through XII are intact. There are no focal motor or sensory deficits noted. Patient is awake, alert, and oriented to person and place only. Test Results: CBC and basic metabolic profile were obtained and were within normal limits except for an elevated glucose of 358. Urinalysis showed leukocyte esterase of 500 with 25-50 white blood cells. Urine culture was obtained. Emergency Department Course and Treatment: Patient was started on Rocephin. bench worker apprentice was called to see the patient for arrangement of her assisted living versus retirement care. She felt the patient would require retirement care but the patient would need to be admitted to the hospital tonight so that this could be arranged for tomorrow. Case was discussed with the hospitalist. Patient will be admitted for observation for possible admission to a retirement facility. Patient appeared to understand and was agreeable with the plan. Disposition: Admit for observation Impression: 1. Urinary tract infection 2. Deconditioning This note was generated with [employer] D[employer]le[employer] software. It may contain incorrect words, spelling, and punctuation that were not noted in review of the chart prior to signing ED Disposition - Plan for ED Patient: Disposition: Acute Care [facility] Diagnosis: Urinary tract infection, Physical deconditioning
[2019-08-03 16:45] LABS: Mucous, Urine 0 SEEN /hpf (<or=2+); Red Blood Cells-Urine 0 SEEN /hpf (0-5)
[2019-08-03 16:53] LABS: Color, Urine Yellow (Yellow); Glucose, Dipstick 1000 mg/dl (Normal); Ketone-Dipstick Negative (Negative); Leukocyte Esterase-Dipstick 500 /ul (Negative); Nitrite-Dipstick Negative (Negative); Occult Blood-Urine 10 /ul (Negative); Protein-Dipstick 15 mg/dl (Negative); Specific Gravity, Urine 1.015 (1.002-1.030); Urine Bilirubin Dipstick Negative (Negative); Urine Clarity Clear (Clear); Urine Urobilinogen Normal (Normal)
[2019-08-03 17:07] LABS: Absolute Lymphocyte Count 1.27 X10^3/uL (0.83-4.51); Absolute Neutrophil Count 4.5 X10^3/uL (2.0-7.7); Basophil# 0.03 X10^3/uL; Basophil% 0.5 % (0-1); Eosinophil# 0.13 X10^3/uL; Eosinophils% 2.1 % (0-5); Hematocrit 40.9 % (37-47); Hemoglobin 13.4 g/dL (12.0-15.0); Lymphocyte # 1.27 X10^3/ul (4.0); Lymphocyte % 20.2 % (19-41); Mean Corp Hgb Conc 32.8 g/dL (32-36); Mean Corpuscular Hgb 31.8 pg (27.0-32.0); Mean Corpuscular Volume 97.1 fL (81-99); Mean Platelet Vol. 11.8 fl (6.2-12.0); Monocyte# 0.28 X10^3/uL; Monocyte% 4.5 % (0-10); NRBC Flagged by Analyzer 0 % (0-5); Neutrophil # 4.53 X10^3/uL (2.7-7.7); Neutrophil % 72.1 % (47-70); Platelet Count 176 K/mm3 (150-450); RBC Distribution Width SD 48.7 fl (35.1-43.9); Red Blood Count 4.21 M/mm3 (4.2-5.4); White Blood Count 6.3 K/mm3 (4.4-11.0)
[2019-08-03 17:29] LABS: Bacteria 1+ /hpf (None Seen); Squamous Epithelial Cells - UA 0-5 SEEN /hpf (5-10); White Blood Cells 25-50 SEEN /hpf (0-5)
[2019-08-03 17:33] LABS: ALB/GLOB Ratio 0.8 RATIO (0.9-2.4); AST(SGOT) 23 U/L (15-37); Alanine Aminotransfer ALT/SGPT 38 U/L (13-56); Albumin, Serum 3.2 g/dL (3.2-5.0); Alkaline Phosphatase 113 U/L (45-117); Anion Gap 5 (5-15); BUN 16 mg/dL (7-18); BUN/Creat Ratio 13.8 RATIO (10-20); Calcium,Total 8.5 mg/dL (8.5-10.1); Chloride 112 mmol/L (98-107); Creatinine, Serum 1.16 mg/dL (0.55-1.02); EST Glomerular Filtration Rate 48 mL/min (>60); Est Glom Filt Rate - Afr Amer 58 mL/min (>60); Globulin 4.2 g/dL (2.2-4.2); Glucose 358 mg/dL (74-106); Potassium 3.6 mmol/L (3.5-5.1); Protein, Total 7.4 g/dL (6.4-8.2); Sodium Level 140 mmol/L (136-145)
--- NOTE | 2019-08-03 17:35 | CM.ED ---
Addendum entered by Afua Gallo 08/03/19 17:47: Due to time of day, unable to explore option of fpc placement from the ER. Updated Dr. Gray on this information. Tentative plan is for admission to hospital in order to be able to complete fpc placement. Original Note: Social Work Consult: Placement Informant: Dr. Gray Updated by nursing staff that patient was sent to the ER by Dr. Padgett. Apparently patient was at Dr. Padgett's office today. Dr. Padgett with concerns of patient being able to care for self anymore. Patient currently is staying at [facility]. Per Dr. Padgett patient family lives out of town and does not assist with patient. Dr. Padgett stating that patient has Dementia and is a poor historian. Met with patient in room. Introduced self as well as professor of social work role. Patient agreeable to meet with this professor of social work. Patient confirming to live at [facility]. Patient is a poor historian. Patient unable to state the correct year, date, or month. Patient unable to state why patient is in the ER today. When this professor of social work asked patient if patient knows where patient is patient stating in the hospital. Patient stating to have two sons, Wagner and Jose. Patient stating that Wagner lives in [place] and Jose lives in [place]. Patient also mentioning something about a son that but it is unclear as to if patient has/had three sons or if patient was confused on current status of patient son's. Patient stating that both Jose and Wagner are living. Patient stating to ambulate without a walker or a cane. Patient stating to need more help at [facility]. Patient stating that aides assist with laundry and showering. Broached topic of fpc placement per Dr. Padgett's recommendations. At first patient is unsure about fpc placement but after further conversation was agreeable. Patient resting pleasantly in bed while this professor of social work met with patient. Active listening and support provided. Patient agreeable to this professor of social work contact patient son, Jose. Telephone call to Jose, no answer. Left voicemail requesting return phone call. Berta REYNA, NAOMI
[2019-08-03] MEDS: Ceftriaxone 1 GM/50 ML BAG IV (17:54)
--- NOTE | 2019-08-03 18:02 | HP.PCM_ITS ---
History of Present Illness Date of Admission: 08/03/19 Chief Complaint: debility, frequency of urination The patient is a 73 year old F with a past medical history as listed was admitted through the ED on 08/03/2019 with a complaint of frequency of urination. Per the ED notes, patient came complaining of vaginal bleeding and she was examined by her PCP who did not notice any vaginal bleeding. Patient tells me that she has been having frequency of urination as well as some dysuria. She denied any fever chills or nausea vomiting. She denied any abdominal pain, or fever or chills. Review of stems otherwise negative. She states she has been able to carry out her activities of daily living in the [facility] though according to the ED note, her PCP thought that she might need to be placed in the skilled nurse unit as she is currently in the assisted living facility. ED, vitals were significant for blood pressure of 148/50 and pulse rate of 47. Vitals were otherwise stable. Chemistry showed creatinine of 1.16 and glucose of 358 and CBC showed white cell count of 6.3 with hemoglobin of 13.4. Platelets were 176. Urinalysis showed 1+ bacteria. She has been admitted to be managed for debility due to UTI. [] Past Medical History Past Medical History (Chronic Problems): Chronic Problems (Last Reviewed 06/01/19 @ 10:02 by Fabian Rebolledo MD) Vertigo (Chronic) Paroxysmal atrial fibrillation (Chronic) LBBB (left bundle branch block) (Chronic) Chronic diastolic (congestive) heart failure (Chronic) Hyperlipidemia (Chronic) CKD (chronic kidney disease), stage III (Chronic) Medical History: Medical History (Last Reviewed 06/01/19 @ 10:02 by Fabian Rebolledo MD) Vertigo (Chronic) R42 Paroxysmal atrial fibrillation (Chronic) I48.0 LBBB (left bundle branch block) (Chronic) I44.7 Chronic diastolic (congestive) heart failure (Chronic) I50.32 Hyperlipidemia (Chronic) E78.5 CKD (chronic kidney disease), stage III (Chronic) N18.3 Dementia in other diseases classified elsewhere without behavioral disturbance F02.80 Diabetes type 2, controlled E11.9 Gout M10.9 Hypersomnia G47.10 Hypothyroidism E03.9 Obesity E66.9 Vitamin D deficiency E55.9 RONNY (obstructive sleep apnea) G47.33 Bleeding (Resolved) R58 Bleeding gums (Resolved) K06.8 Persistent atrial fibrillation (Resolved) I48.1 alf current use of anticoagulant (Inactive) Z79.01 Allergies colchicine Allergy (Severe, Verified 08/03/19 16:25) HIVES ALLERGY PILLS Adverse Reaction (Uncoded 08/03/19 16:25) Unknown Home Medications: Ambulatory Orders Medication Instructions Recorded Ferrous Sulfate 325 mg PO DAILY 08/15/17 Levothyroxine [Synthroid] 50 mcg PO DAILY 08/15/17 Loratadine 10 mg PO DAILY 08/15/17 apixaban 5 mg tablet 5 mg PO BID tab 11/09/17 atorvastatin 40 mg tablet 40 mg PO DAILY 11/09/17 insulin human U-100 NPH-regulr 48 unit SC BREAKFAST ml 11/09/17 70-30 mix 100 unit/mL subcutaneous susp methenamine hippurate 1 gram tablet 1 g PO QHS 11/09/17 Cyanocobalamin (Vitamin B-12) 1,000 mcg PO DAILY 12/19/18 [Vitamin B-12] Donepezil HCl 10 mg PO QHS 12/19/18 Insulin NPH Hum/Reg Insulin Hm 34 unit SQ DAILY@1700 12/19/18 [Humulin 70-30 Vial] Ergocalciferol (Vitamin D2) 50,000 unit PO FR 12/20/18 [Vitamin D2] Memantine HCl [Memantine HCl ER] 28 mg PO DAILY 12/20/18 acetaminophen 500 mg tablet 1,000 mg PO TID tab 05/12/19 fluticasone propionate 50 1 spray INTRANASAL DAILY 05/12/19 mcg/actuation nasal spray,suspension Oxybutynin Chloride [Oxybutynin 5 mg PO DAILY 08/03/19 Chloride ER] Surgical History: Surgical History (Last Reviewed 06/01/19 @ 10:02 by Fabian Rebolledo MD) History of total abdominal hysterectomy Z90.710 History of cholecystectomy Z90.49 Lives: - - assisted living facility Smoking Status: Never smoker Alcohol: None Drugs: None - *Family History Paternal Family History: Family History (Last Reviewed 06/01/19 @ 10:02 by Fabian Rebolledo MD) Sister Cancer History Items: Hypertension Maternal Family History: Family History (Last Reviewed 06/01/19 @ 10:02 by Fabian Rebolledo MD) Sister Cancer History Items: Hypertension Review of Systems Constitutional: Reports: Malaise, Weakness, Fatigue. Denies: Chills, Fever, Weight Change Eyes: Denies: Blurred vision HEENT: Denies: Head Aches, Sinus Congestion, Sinus Drainage Cardiovascular: Denies: Chest Pain, Palpitations Respiratory: Denies: Cough, Shortness of Breath, Shortness of breath at rest, Shortness of breath upon exertion, Sputum production Gastrointestinal: Denies: Abdominal Pain, Nausea, Vomiting Genitourinary: Denies: Dysuria Musculoskeletal: Denies: Joint Pain, Joint Tenderness Skin: Denies: Rash, Wounds Neurological: Denies: Numbness, Tingling, Focal weakness Psychiatric: Denies: Anxiety, Depression, Homicidal Ideations, Suicidal Ideations Hematologic/ Lymphatic: Denies: Easy Bruising, Easy Bleeding VTE Information - Inpt Only VTE Present on Admission: No VTE Pharm Prophylaxis ordered?: Yes - Physical Exam Vitals/I&O's: Vital Signs Temp Pulse Resp BP Pulse Ox 98 F 45 L 16 166/55 H 100 08/03/19 16:06 08/03/19 16:06 08/03/19 16:06 08/03/19 16:06 08/03/19 16:06 Weight: 167 lb 1.766 oz Body Mass Index (BMI) 32.6 Finger Stick Blood Glucose 134 General: Alert, Oriented x3, Cooperative, No apparent distress HEENT: Atraumatic, PERRLA, EOMI, Normocephalic Oral: Dry Mucosa Neck: Supple, No JVD, Negative Carotid Bruits Lungs: Clear to auscultation, Normal air movement, No rhonchi, No wheeze, No rales Cardiovascular: Regular rate, Regular Rhythm, Normal S1, Normal S2, No murmurs Abdomen: Bowel Sounds Present, Soft, Non Tender, Non-Distended, No Hepato-splenomegaly Extremities: No clubbing, No cyanosis, No edema, Capillary Refill Less than 3 Seconds Skin: No rashes, No breakdown Musculoskeletal: No Tenderness to Palpation of Joints or Extremities Lymphatic: No Cervical, Supraclavicular, or Inguinal Adenopathy Neurological: Cranial nerves II-XII grossly intact, Neuro grossly intact, Motor Exam 5/5 strength throughout Psych/Mental Status: Flat Affect, Alert and oriented to time, place, person, mood and affect Laboratory Results 08/03/19 16:34: Urine Color Yellow, Urine Clarity Clear, Urine pH 6.0, Ur Specific [place] 1.015, Urine Protein 15 H, Urine Glucose (UA) 1000 H, Urine Ketones Negative, Urine Occult Blood 10 H, Urine Nitrite Negative, Urine Bilirubin Negative, Urine Urobilinogen Normal, Ur Leukocyte Esterase 500 H, Urine RBC 0 SEEN, Urine WBC 25-50 SEEN, Ur Squamous Epith Cells 0-5 SEEN, Urine Bacteria 1+, Urine Mucus 0 SEEN 08/03/19 16:35: WBC 6.3, RBC 4.21, Hgb 13.4, Hct 40.9, MCV 97.1, MCH 31.8, MCHC 32.8, RDW Std Deviation 48.7 H, RDW Coeff of Roshni 14.0, Plt Count 176, MPV 11.8, Immature Gran % (Auto) 0.600, Neut % (Auto) 72.1 H, Lymph % (Auto) 20.2, [place] % (Auto) 4.5, Eos % (Auto) 2.1, Baso % (Auto) 0.5, Absolute Neuts (auto) 4.5, Absolute Lymphs (auto) 1.27, Nucleated RBC % 0 08/03/19 16:35: Sodium 140, Potassium 3.6, Chloride 112 H, Carbon Dioxide 23.0, Anion Gap 5, BUN 16, Creatinine 1.16 H, Estim Creat Clear Calc 30.10, Est GFR (MDRD) Af Amer 58 L, Est GFR (MDRD) Non-Af 48 L, BUN/Creatinine Ratio 13.8, Glucose 358 H, Calcium 8.5, Total Bilirubin 0.40, AST 23, ALT 38, Alkaline Phosphatase 113, Total Protein 7.4, Albumin 3.2, Globulin 4.2, Albumin/Globulin Ratio 0.8 L Diagnostic Data Chest X-Ray 08/03/19 16:19 IMPRESSION: Stable chest with no acute superimposed finding. Electronically Signed: Wagner Villa MD at 17:19 EST , Service support , Current Medications Ceftriaxone Sodium (Rocephin) 1 gm in 50 mls @ 100 mls/hr IV X1 ONE Stop: 08/03/19 18:12 Last Admin: 08/03/19 17:54 Dose: 100 mls/hr Documented by: Assessment/Plan All Active Problems (Last Reviewed 06/01/19 @ 10:02 by Fabian Rebolledo MD) Fatigue (Acute) Bleeding (Resolved) Bleeding gums (Resolved) Persistent atrial fibrillation (Resolved) 73 y/o admitted with a complaint of frequency of urination 1. UTI * Admits to frequency of urination. Urine bacteria was 1+ per UA. CBC showed no leukocytosis. * Admit to MedSurg. Order urine culture. * Gently with IV fluid normal saline. Start IV ceftriaxone. * PT OT. 2. Debility due to UTI * Under 1. PT OT consult. * Fall Precautions. 3. Bradycardia: HR was 45 on admission, and now 47. Asymptomatic. Will monitor 4. Type 2 diabetes mellitus with diabetic nephropathy: On NPH insulin 34 units daily. Insulin sliding scale. Adjust ACH S. 5. Hyperlipidemia: on statin 6. CKD stage III: CR is 1.16, which is around her baseline. WIll monitor 7. Heart failure preserved ejection fraction: Not in exacerbation. EF is 75% with stage 1 diastolic dysfunction. Stable. 8. A. fib: Currently rate and rhythm controlled. 9. Dementia: On donepezil and memantine DVT Prophylaxis: On Eliquis Disposition: to be assessed by PT/OT to determine if she needs placement. Code Visit OBSV E&M: 58866 Initial observation care L2
--- NOTE | 2019-08-03 18:05 | NURSING ---
MED SURG DEBILITY, UTI INES
[2019-08-03 18:10] VITALS: BP 150/74; PULSE 59; RESP 18; O2SAT 99
[2019-08-03 18:37] VITALS: BMI 30.4; BMI 30.5
[2019-08-03 18:56] VITALS: BP 148/50; PULSE 47; RESP 16; TEMP 36.7; O2SAT 98
[2019-08-03 19:29] VITALS: PULSE 50
[2019-08-03] MEDS: 0.9% Normal Saline 1,000 ML 75 ML IV (20:57)
[2019-08-03 22:00] VITALS: BP 136/66; PULSE 62; RESP 18; TEMP 36.6; O2SAT 97
[2019-08-03 22:01] LABS: Bedside Glucose 206 mg/dL (70-110)
[2019-08-03] MEDS: Insulin Lispro 100 UNIT/ML INSULN.PEN SC (22:01)
[2019-08-03] MEDS: Acetaminophen 500 MG Tablet 1000 MG PO (22:02)
[2019-08-03] MEDS: Atorvastatin Calcium 40 MG Tablet PO (22:02)
[2019-08-03] MEDS: APIXABAN 5 MG TABLET PO (22:02)
[2019-08-03] MEDS: Donepezil HCl 10 MG Tablet PO (22:03)
[2019-08-03] MEDS: Methenamine Hippurate 1 GM Tablet PO (22:03)
[2019-08-03] MEDS: Memantine Hydrochloride 5 MG Tablet 10 MG PO (22:04)
[2019-08-03 22:21] VITALS: PULSE 60
[2019-08-04] VITALS (9 sets, daily range): BP systolic 134–149; BP diastolic 61–70; PULSE 51–89; RESP 16–18; TEMP 36.7–36.9; O2SAT 94–98
[2019-08-04 05:34] LABS: Absolute Lymphocyte Count 1.32 X10^3/uL (0.83-4.51); Absolute Neutrophil Count 4.2 X10^3/uL (2.0-7.7); Basophil# 0.02 X10^3/uL; Basophil% 0.3 % (0-1); Eosinophil# 0.16 X10^3/uL; Eosinophils% 2.6 % (0-5); Hematocrit 37.2 % (37-47); Hemoglobin 12.4 g/dL (12.0-15.0); Lymphocyte # 1.32 X10^3/ul (4.0); Lymphocyte % 21.8 % (19-41); Mean Corp Hgb Conc 33.3 g/dL (32-36); Mean Corpuscular Hgb 32.5 pg (27.0-32.0); Mean Corpuscular Volume 97.6 fL (81-99); Mean Platelet Vol. 11.1 fl (6.2-12.0); Monocyte# 0.33 X10^3/uL; Monocyte% 5.5 % (0-10); NRBC Flagged by Analyzer 0 % (0-5); Neutrophil # 4.19 X10^3/uL (2.7-7.7); Neutrophil % 69.3 % (47-70); Platelet Count 150 K/mm3 (150-450); RBC Distribution Width CV 13.7 % (11.6-14.6); RBC Distribution Width SD 48.7 fl (35.1-43.9); Red Blood Count 3.81 M/mm3 (4.2-5.4); White Blood Count 6.1 K/mm3 (4.4-11.0)
[2019-08-04 05:59] LABS: Anion Gap 6 (5-15); BUN 11 mg/dL (7-18); Calcium,Total 8.1 mg/dL (8.5-10.1); Chloride 116 mmol/L (98-107); Creatinine, Serum 0.92 mg/dL (0.55-1.02); EST Glomerular Filtration Rate 63 mL/min (>60); Est Glom Filt Rate - Afr Amer 77 mL/min (>60); Estimated Creatinine Clearance 37.95 ml/min; Glucose 162 mg/dL (74-106); Potassium 3.2 mmol/L (3.5-5.1); Sodium Level 144 mmol/L (136-145)
[2019-08-04] MEDS: Levothyroxine 50 MCG Tablet PO (06:47)
[2019-08-04] MEDS: Insulin Lispro 100 UNIT/ML INSULN.PEN SC ×3 (06:47→16:36)
[2019-08-04] MEDS: Acetaminophen 500 MG Tablet 1000 MG PO ×3 (06:47→22:10)
[2019-08-04 07:01] LABS: Bedside Glucose 150 mg/dL (70-110)
[2019-08-04] MEDS: Ferrous Sulfate 325 MG Tablet PO (07:44)
[2019-08-04] MEDS: Tolterodine Tartrate 2 MG CAP.SA PO (09:45)
[2019-08-04] MEDS: Loratadine 10 MG Tablet PO (09:45)
[2019-08-04] MEDS: Memantine Hydrochloride 5 MG Tablet 10 MG PO ×2 (09:45→22:10)
[2019-08-04] MEDS: Ceftriaxone 1 GM/50 ML BAG IV (09:47)
[2019-08-04] MEDS: Fluticasone 0.05% 1 SPRAY NASAL.SRY NASAL (09:47)
[2019-08-04] MEDS: APIXABAN 5 MG TABLET PO ×2 (09:47→22:10)
[2019-08-04] MEDS: Cyanocobalamin 500 MCG Tablet 1000 MCG PO (09:48)
--- NOTE | 2019-08-04 10:16 | CASEMGMT ---
Addendum entered by Gayathri Bradford 08/04/19 13:55: SW received message from Carey at [facility] stating they do not accept pt's insurance. SW in to speak with pt. SW updated pt that [facility] and [facility] is not able to accept pt. Pt agreeable to [facility]. SW placed a call to [facility] and provided referral. LIZZIE faxed referral. Addendum entered by Gayathri Bradford 08/04/19 12:04: SW met with pt and introduced self and role at [facility]. Pt is alert and oriented does have a history of confusion. Pt confirms that she lives at [facility] and that her PCP Dr. Padgett sent her to ED for SNF placement. Pt states that she has lived at [facility] for about a year and she was independent with walking. Pt states that the aides assist her with housekeeping duties. Pt states that she does have two sons. Pt is able to state that her one son is named Jose but can't remember what her other son is named. Pt states that she just spoke with her son Jose two days again. SW discussed SNF with pt. Pt is agreeable to SNF. SW provided pt with list of SNF that accept pt's insurance. Pt states her first choice is [facility] and second choice is [facility]. SW explained referral process and that pt will need pre-cert. Pt states understanding. SW placed a call to referral line and per Ai [facility] doens't have any beds available. LIZZIE faxed referral to [facility] and placed a call to Carey in admissions. Carey states she will review referral. Plan: SNF pending acceptance and pre-cert Original Note: Social Work Note Pt is listed as being from [facility]. LIZZIE attempted to call [facility] to speak with RN for pt but there was no answer, voicemail left. LIZZIE attempted to call pt's son Jose that is listed on demographics but no answer, voicemail left. LIZZIE reviewed documents sent from [facility] and it appears pt has [facility]. LIZZIE placed a call to Elana [facility] but there was no answer, voicemail left. LIZZIE will meet with pt once PT/OT works with pt to determine if pt is able to return to [facility] or needs SNF. SW to continue to follow. Plan: TBD. Return to [facility] vs SNF Gayathri Bradford SENIOR ANDROID DEVELOPER, PRIVACY MANAGER
--- NOTE | 2019-08-04 10:17 | PN_ITS ---
Patient Problems: Active and Suspected Problems (Last Reviewed 06/01/19 @ 10:02 by Fabian Rebolledo MD) Urinary tract infection (Acute) Physical deconditioning (Acute) Reason for Visit: Follow-up acute cystitis Subjective: Patient is a 73-year-old lady admitted with urinary frequency and assessment of acute cystitis made admitted to regular nursing floor for further management 73 y/o admitted with a complaint of frequency of urination Objective: GENERAL: cooperative HEENT: Atraumatic; EYES; Anicteric, Normal Conjunctiva NECK; supple, normal thyroid, RESPIRATORY: Diminished to auscultation CARDIOVASCULAR: S1-S2 GI: soft, normoactive bowel sounds, : No Renal angle tenderness; EXTREMITIES: No edema, no clubbing, MUSCULOSKELETAL: no muscle waisting NEURO: Awake; no lateralizing signs. SKIN: No Rash PSYCH; Flat affect Vitals/I&O's: Vital Signs Temp Pulse Resp BP Pulse Ox 98.2 F 51 L 16 134/70 H 97 08/04/19 07:33 08/04/19 07:33 08/04/19 07:33 08/04/19 07:33 08/04/19 07:33 Oxygen Delivery Method Room Air Weight: 70.8 kg Body Mass Index (BMI) 30.4 Finger Stick Blood Glucose 134 Intake and Output for Last 24 Hours 08/02/19 08/03/19 08/04/19 23:59 23:59 23:59 Intake Total 50 / 50 Output Total 200 / 200 Balance 50 / 50 -200 / -200 Laboratory Results 08/03/19 16:34: Urine Color Yellow, Urine Clarity Clear, Urine pH 6.0, Ur Specific [place] 1.015, Urine Protein 15 H, Urine Glucose (UA) 1000 H, Urine Ketones Negative, Urine Occult Blood 10 H, Urine Nitrite Negative, Urine Bilirubin Negative, Urine Urobilinogen Normal, Ur Leukocyte Esterase 500 H, Urine RBC 0 SEEN, Urine WBC 25-50 SEEN, Ur Squamous Epith Cells 0-5 SEEN, Urine Bacteria 1+, Urine Mucus 0 SEEN 08/03/19 16:35: WBC 6.3, RBC 4.21, Hgb 13.4, Hct 40.9, MCV 97.1, MCH 31.8, MCHC 32.8, RDW Std Deviation 48.7 H, RDW Coeff of Roshni 14.0, Plt Count 176, MPV 11.8, Immature Gran % (Auto) 0.600, Neut % (Auto) 72.1 H, Lymph % (Auto) 20.2, [place] % (Auto) 4.5, Eos % (Auto) 2.1, Baso % (Auto) 0.5, Absolute Neuts (auto) 4.5, Absolute Lymphs (auto) 1.27, Nucleated RBC % 0 08/03/19 16:35: Sodium 140, Potassium 3.6, Chloride 112 H, Carbon Dioxide 23.0, Anion Gap 5, BUN 16, Creatinine 1.16 H, Estim Creat Clear Calc 30.10, Est GFR (MDRD) Af Amer 58 L, Est GFR (MDRD) Non-Af 48 L, BUN/Creatinine Ratio 13.8, Glucose 358 H, Calcium 8.5, Total Bilirubin 0.40, AST 23, ALT 38, Alkaline Phosphatase 113, Total Protein 7.4, Albumin 3.2, Globulin 4.2, Albumin/Globulin Ratio 0.8 L 08/03/19 21:57: POC Glucose 206 H 08/04/19 05:20: WBC 6.1, RBC 3.81 L, Hgb 12.4, Hct 37.2, MCV 97.6, MCH 32.5 H, MCHC 33.3, RDW Std Deviation 48.7 H, RDW Coeff of Roshni 13.7, Plt Count 150, MPV 11.1, Immature Gran % (Auto) 0.500, Neut % (Auto) 69.3, Lymph % (Auto) 21.8, [place] % (Auto) 5.5, Eos % (Auto) 2.6, Baso % (Auto) 0.3, Absolute Neuts (auto) 4.2, Absolute Lymphs (auto) 1.32, Nucleated RBC % 0 08/04/19 05:20: Sodium 144, Potassium 3.2 L, Chloride 116 H, Carbon Dioxide 22.0, Anion Gap 6, BUN 11, Creatinine 0.92, Estim Creat Clear Calc 37.95, Est GFR (MDRD) Af Amer 77, Est GFR (MDRD) Non-Af 63, BUN/Creatinine Ratio 12.0, Glucose 162 H, Calcium 8.1 L 08/04/19 06:44: POC Glucose 150 H Current Medications Acetaminophen (Tylenol) 1,000 mg PO TID HANNAH Last Admin: 08/04/19 06:47 Dose: 1,000 mg Documented by: Apixaban (Eliquis) 5 mg PO BID [facility] Last Admin: 08/04/19 09:47 Dose: 5 mg Documented by: Atorvastatin Calcium (Lipitor) 40 mg PO QHS [facility] Last Admin: 08/03/19 22:02 Dose: 40 mg Documented by: Cyanocobalamin (Vitamin B12) 1,000 mcg PO DAILY [facility] Last Admin: 08/04/19 09:48 Dose: 1,000 mcg Documented by: Donepezil HCl (Aricept) 10 mg PO QHS [facility] Last Admin: 08/03/19 22:03 Dose: 10 mg Documented by: Ergocalciferol (Vitamin D) 50,000 unit PO FR [facility] Ferrous Sulfate (Ferrous Sulfate) 325 mg PO DAILYCM [facility] Last Admin: 08/04/19 07:44 Dose: 325 mg Documented by: Fluticasone Propionate (Flonase Nasal [place]) 1 spray NASAL DAILY [facility] Last Admin: 08/04/19 09:47 Dose: 1 spray Documented by: Glucagon () 1 mg IM .X1 PRN PRN Reason: Hypoglycemia Ceftriaxone Sodium (Rocephin) 1 gm in 50 mls @ 100 mls/hr IV Q24 [facility] Last Admin: 08/04/19 09:47 Dose: 100 mls/hr Documented by: Dextrose (Dextrose 10%-Water) 250 mls @ 999 mls/hr IV .Q16M PRN; Protocol PRN Reason: HYPOGLYCEMIA Insulin Human Lispro (Humalog Kwikpen (Bkc)) 0 unit SC ACHS [facility]; Protocol Last Admin: 08/04/19 06:47 Dose: 1 u Documented by: Insulin Lispro Protam/Lispro Human (Humalog Mix 75-25 Kwikpen (Bkc)) 34 unit SC DAILY@1700 [facility] Levothyroxine Sodium (Synthroid) 50 mcg PO DAILY@0600 [facility] Last Admin: 08/04/19 06:47 Dose: 50 mcg Documented by: Loratadine (Claritin) 10 mg PO DAILY [facility] Last Admin: 08/04/19 09:45 Dose: 10 mg Documented by: Memantine (Namenda) 10 mg PO BID [facility] Last Admin: 08/04/19 09:45 Dose: 10 mg Documented by: Methenamine Hippurate (Hiprex) 1 gm PO QHS [facility] Last Admin: 08/03/19 22:03 Dose: 1 gm Documented by: Ondansetron HCl (Zofran) 4 mg IV Q8H PRN PRN PRN Reason: NAUSEA/VOMITING Sodium Chloride () 10 - 40 ml IV UD PRN PRN Reason: SALINE FLUSH Tolterodine Tartrate (Detrol La) 2 mg PO DAILY [facility] Last Admin: 08/04/19 09:45 Dose: 2 mg Documented by: STROKE Vital Signs/Narrative: Vital Signs Temp Pulse Resp BP Pulse Ox 08/04/19 07:33 98.2 F 51 L 16 134/70 H 97 Medical Necessity - Tobacco Use Smoking Status: Never smoker Assessment/Plan All Active Problems (Last Reviewed 06/01/19 @ 10:02 by Fabian Rebolledo MD) Urinary tract infection (Acute) Physical deconditioning (Acute) Fatigue (Acute) Bleeding (Resolved) Bleeding gums (Resolved) Persistent atrial fibrillation (Resolved) Patient is a 73-year-old lady admitted with urinary frequency and assessment of acute cystitis made admitted to regular nursing floor for further management 73 y/o admitted with a complaint of frequency of urination 1. Acute cystitis - Patient admitted to regular nursing floor started on Rocephin cultures sent with plans to adjust antibiotics based on culture result 2. Diabetes mellitus type 2 -Uncontrolled with hyperglycemia on admission with blood glucose level of 358 and with long-term complications including diabetic nephropathy. Patient is on long-acting insulin did continue in addition to Accu-Cheks before meals and at bedtime with sliding scale coverage 3. Acute renal insufficiency ?Patient started on IV fluid with subsequent monitoring of electrolyte 4. Chronic atrial fibrillation ?Rate controlled on systemic anticoagulation with Eliquis 5. Dyslipidemia ? Patient is on statin therapy, continued at home dose 6. Chronic kidney disease stage III ruled out 7. Chronic congestive heart failure ?With preserved ejection fraction currently not in exacerbation 8. Dementia Patient symptoms controlled with Aricept and Namenda 9. Physical debility Secondary to patient multiple comorbidities requested for PT OT eval and certified social workers in health care to assist with discharge planning 10. DVT prophylaxis ?On Eliquis Code Visit OBSV E&M: 60513 Subsequent observation care L3
[2019-08-04 11:16] LABS: Bedside Glucose 256 mg/dL (70-110)
--- NOTE | 2019-08-04 14:11 | CHAPLAIN ---
Type of Pastoral Visit _x__ Initial Visit ___ Follow-up Visit ___ On-call Visit ___ General Patient Visit ___ Spiritual Assessment ___ Family Conference ___ Bereavement ___ Rapid Response ___ Code Blue ___ Other (describe below) Pastoral Care Referral From _x__ Patient ___ Family ___ Nurse ___ Physician ___ Matrix Drier Tender ___ Timber Sizer ___ Other (describe below) Sacrament/Intervention _x__ Active listening ___ Anointing ___ Shinto ___ Bereavement ___ Communion ___ Cally exploration ___ ___ Life review _x__ Prayer ___ Reconciliation ___ Sacrament of Sick _x__ Supportive presence ___ Wedding ___ Other (describe below) Pastoral Comments patient is pleasant and requests this gaming host to say a prayer; pt states that her abdomen hurts and requests reassurance that she is going to be alright; pt appears to have some insufficient cognitive abilities but does answer questions even if some hesitation or uncertainty on her part
--- NOTE | 2019-08-04 15:10 | CASEMGMT ---
Social Work Note SW spoke with Afshan at [facility] who states she is able to accept pt and will submit for pre-cert. Plan: [facility] pending pre-cert Gayathri Bradford CUSTOMER CARE ASSISTANT, SEASONING SPRAYER
--- NOTE | 2019-08-04 15:59 | CASEMGMT ---
MIKAYLA CM in to complete ANDERSON form with patient. ANDERSON form explained, patient denied any questions at this time. Patient signed form and filed in chart. Copy of signed form provided to patient. Patient denied further needs or concerns at this time.
[2019-08-04 16:35] LABS: Bedside Glucose 213 mg/dL (70-110)
[2019-08-04] MEDS: Insulin Human 75/25 Kwickpen 34 UNIT SC (16:36)
[2019-08-04] MEDS: Donepezil HCl 10 MG Tablet PO (22:10)
[2019-08-04] MEDS: Methenamine Hippurate 1 GM Tablet PO (22:10)
[2019-08-04] MEDS: Atorvastatin Calcium 40 MG Tablet PO (22:10)
[2019-08-04 22:36] LABS: Bedside Glucose 105 mg/dL (70-110)
[2019-08-04 22:36] LABS: Bedside Glucose 60 mg/dL (70-110)
[2019-08-05] VITALS (7 sets, daily range): BP systolic 146–156; BP diastolic 56–75; PULSE 47–69; RESP 18; TEMP 36.4–36.7; O2SAT 97–100
[2019-08-05] MEDS: Levothyroxine 50 MCG Tablet PO (05:19)
[2019-08-05] MEDS: Acetaminophen 500 MG Tablet 1000 MG PO ×2 (05:19→15:36)
[2019-08-05 06:40] LABS: Bedside Glucose 101 mg/dL (70-110)
--- NOTE | 2019-08-05 07:49 | PCM.DC.SUM ---
Discharge Date and Diagnosis - Problem List Patient Problems: Active and Suspected Problems (Last Reviewed 06/01/19 @ 10:02 by Fbaian Rebolledo MD) Urinary tract infection (Acute) Physical deconditioning (Acute) Date of Admission: 08/03/19 Date of Discharge: 08/05/19 - Primary Discharge Diagnosis Active and Suspected Problems (Last Reviewed 06/01/19 @ 10:02 by Fabian Rebolledo MD) Urinary tract infection (Acute) Physical deconditioning (Acute) - Secondary Discharge Diagnosis Chronic Problems (Last Reviewed 06/01/19 @ 10:02 by Fabian Rebolledo MD) Vertigo (Chronic) Paroxysmal atrial fibrillation (Chronic) LBBB (left bundle branch block) (Chronic) Chronic diastolic (congestive) heart failure (Chronic) Hyperlipidemia (Chronic) CKD (chronic kidney disease), stage III (Chronic) Hospital Course and Treatment Imaging Results: Clinical Impression(s) from Imaging Studies Chest X-Ray 08/03/19 16:19 IMPRESSION: Stable chest with no acute superimposed finding. Electronically Signed: Wagner Villa MD at 17:19 EST , Service support , Microbiology 08/03/19 16:34 Urine, Clean Catch Urine Culture - Final Presumptive E. coli Operations: None Summary of Care Provided: Patient is a 73-year-old lady admitted with urinary frequency and assessment of acute cystitis made admitted to regular nursing floor for further management 73 y/o admitted with a complaint of frequency of urination 1. Acute cystitis with E. coli - Patient admitted to regular nursing floor started on Rocephin cultures sent with plans to adjust antibiotics based on culture result ?08/05/2019: Patient urine cultures came back positive for E. coli currently on appropriate antibiotic therapy 2. Diabetes mellitus type 2 -Uncontrolled with hyperglycemia on admission with blood glucose level of 358 and with long-term complications including diabetic nephropathy. Patient is on long-acting insulin did continue in addition to Accu-Cheks before meals and at bedtime with sliding scale coverage 3. Acute renal insufficiency ?Patient started on IV fluid with subsequent monitoring of electrolyte 4. Chronic atrial fibrillation ?Rate controlled on systemic anticoagulation with Eliquis 5. Dyslipidemia ? Patient is on statin therapy, continued at home dose 6. Chronic kidney disease stage III ruled out 7. Chronic congestive heart failure ?With preserved ejection fraction currently not in exacerbation 8. Dementia Patient symptoms controlled with Aricept and Namenda 9. Physical debility Secondary to patient multiple comorbidities requested for PT OT eval and child welfare social worker to assist with discharge planning ?Case discussed with case management , patient transferred to a [facility] facility once insurance precertification was obtained. 10. DVT prophylaxis ?On Eliquis Patient Problems: Active and Suspected Problems (Last Reviewed 06/01/19 @ 10:02 by Fabian Rebolledo MD) Urinary tract infection (Acute) Physical deconditioning (Acute) Objective: GENERAL: cooperative HEENT: Atraumatic; EYES; Anicteric, Normal Conjunctiva NECK; supple, normal thyroid, RESPIRATORY: Diminished to auscultation CARDIOVASCULAR: S1-S2 GI: soft, normoactive bowel sounds, : No Renal angle tenderness; EXTREMITIES: No edema, no clubbing, MUSCULOSKELETAL: no muscle waisting NEURO: Awake; no lateralizing signs. SKIN: No Rash PSYCH; Flat affect - Physical Exam Vitals/I&O's: Vital Signs Temp Pulse Resp BP Pulse Ox 97.6 F L 69 18 155/75 H 97 08/05/19 02:10 08/05/19 02:41 08/05/19 02:10 08/05/19 02:10 08/05/19 02:10 Oxygen Delivery Method Room Air Weight: 70.8 kg Body Mass Index (BMI) 30.4 Finger Stick Blood Glucose 134 Intake and Output for Last 24 Hours 08/03/19 08/04/19 08/05/19 23:59 23:59 23:59 Intake Total 50 / 50 1050 / 1050 Output Total 200 / 800 1000 / 1000 Balance 50 / 50 850 / 250 -1000 / -1000 Microbiology Past 72 Hours 08/03/19 16:34 Urine, Clean Catch Urine Culture - Preliminary Presumptive E. coli Laboratory Results 08/04/19 11:06: POC Glucose 256 H 08/04/19 16:29: POC Glucose 213 H 08/04/19 22:02: POC Glucose 60 L 08/04/19 22:29: POC Glucose 105 08/05/19 06:34: POC Glucose 101 Current Medications Acetaminophen (Tylenol) 1,000 mg PO TID [facility] Last Admin: 08/05/19 05:19 Dose: 1,000 mg Documented by: Apixaban (Eliquis) 5 mg PO BID [facility] Last Admin: 08/04/19 22:10 Dose: 5 mg Documented by: Atorvastatin Calcium (Lipitor) 40 mg PO QHS [facility] Last Admin: 08/04/19 22:10 Dose: 40 mg Documented by: Cyanocobalamin (Vitamin B12) 1,000 mcg PO DAILY [facility] Last Admin: 08/04/19 09:48 Dose: 1,000 mcg Documented by: Donepezil HCl (Aricept) 10 mg PO QHS [facility] Last Admin: 08/04/19 22:10 Dose: 10 mg Documented by: Ergocalciferol (Vitamin D) 50,000 unit PO FR [facility] Ferrous Sulfate (Ferrous Sulfate) 325 mg PO DAILYCM [facility] Last Admin: 08/04/19 07:44 Dose: 325 mg Documented by: Fluticasone Propionate (Flonase Nasal [place]) 1 spray NASAL DAILY [facility] Last Admin: 08/04/19 09:47 Dose: 1 spray Documented by: Glucagon () 1 mg IM .X1 PRN PRN Reason: Hypoglycemia Ceftriaxone Sodium (Rocephin) 1 gm in 50 mls @ 100 mls/hr IV Q24 [facility] Last Infusion: 08/04/19 10:17 Dose: Infused Documented by: Dextrose (Dextrose 10%-Water) 250 mls @ 999 mls/hr IV .Q16M PRN; Protocol PRN Reason: HYPOGLYCEMIA Insulin Human Lispro (Humalog Kwikpen (Bk)) 0 unit SC ACHS [facility]; Protocol Last Admin: 08/05/19 06:57 Dose: Not Given Documented by: Insulin Lispro Protam/Lispro Human (Humalog Mix 75-25 Kwikpen ([facility])) 34 unit SC DAILY@1700 [facility] Last Admin: 08/04/19 16:36 Dose: 34 u Documented by: Levothyroxine Sodium (Synthroid) 50 mcg PO DAILY@0600 [facility] Last Admin: 08/05/19 05:19 Dose: 50 mcg Documented by: Loratadine (Claritin) 10 mg PO DAILY [facility] Last Admin: 08/04/19 09:45 Dose: 10 mg Documented by: Memantine (Namenda) 10 mg PO BID [facility] Last Admin: 08/04/19 22:10 Dose: 10 mg Documented by: Methenamine Hippurate (Hiprex) 1 gm PO QHS [facility] Last Admin: 08/04/19 22:10 Dose: 1 gm Documented by: Ondansetron HCl (Zofran) 4 mg IV Q8H PRN PRN PRN Reason: NAUSEA/VOMITING Sodium Chloride () 10 - 40 ml IV UD PRN PRN Reason: SALINE FLUSH Tolterodine Tartrate (Detrol La) 2 mg PO DAILY [facility] Last Admin: 08/04/19 09:45 Dose: 2 mg Documented by: Discharge Diet: No Restrictions Discharge Activity: Return to Normal Activity Home Medications: Medications to take at Discharge Ferrous Sulfate 325 mg PO DAILY 08/15/17 Levothyroxine [Synthroid] 50 mcg PO DAILY 08/15/17 Loratadine 10 mg PO DAILY 08/15/17 apixaban 5 mg tablet 5 mg PO BID tab 11/09/17 atorvastatin 40 mg tablet 40 mg PO DAILY 11/09/17 methenamine hippurate 1 gram tablet 1 g PO QHS 11/09/17 Cyanocobalamin (Vitamin B-12) [Vitamin B-12] 1,000 mcg PO DAILY 12/19/18 Donepezil HCl 10 mg PO QHS 12/19/18 Insulin NPH Hum/Reg Insulin Hm [Humulin 70-30 Vial] 34 unit SQ DAILY@1700 12/19/18 Ergocalciferol (Vitamin D2) [Vitamin D2] 50,000 unit PO FR 12/20/18 Memantine HCl [Memantine HCl ER] 28 mg PO DAILY 12/20/18 acetaminophen 500 mg tablet 1,000 mg PO TID tab 05/12/19 fluticasone propionate 50 mcg/actuation nasal spray,suspension 1 spray INTRANASAL DAILY 05/12/19 Oxybutynin Chloride [Oxybutynin Chloride ER] 5 mg PO DAILY 08/03/19 Insulin Lispro [Humalog KwikPen] See Protocol SUBCUT ACHS #0 insuln.pen 08/05/19 Primary Care Physician: Jim Padgett MD [Primary Care Provider] - Disposition: [facility] facility Minutes spent on discharge:: 45 Patient Condition:: Stable Medical Necessity - Tobacco Use Smoking Status: Never smoker Meaningful Use Info Meaningful Use Diagnoses (Choose all that apply): None applicable Code Visit Inpatient E&M: 68740 Disch Hosp
[2019-08-05] MEDS: Ferrous Sulfate 325 MG Tablet PO (08:33)
[2019-08-05] MEDS: Tolterodine Tartrate 2 MG CAP.SA PO (08:34)
[2019-08-05] MEDS: Cyanocobalamin 500 MCG Tablet 1000 MCG PO (08:34)
[2019-08-05] MEDS: Memantine Hydrochloride 5 MG Tablet 10 MG PO (08:34)
[2019-08-05] MEDS: APIXABAN 5 MG TABLET PO (08:35)
[2019-08-05] MEDS: Fluticasone 0.05% 1 SPRAY NASAL.SRY NASAL (08:35)
[2019-08-05] MEDS: Loratadine 10 MG Tablet PO (08:38)
--- NOTE | 2019-08-05 10:27 | PCM.PN.HOSP ---
Patient Problems: Active and Suspected Problems (Last Reviewed 06/01/19 @ 10:02 by Fabian Rebolledo MD) Urinary tract infection (Acute) Physical deconditioning (Acute) Reason for Visit: Follow-up acute cystitis Subjective: Patient urine cultures came back positive for E. coli currently on appropriate antibiotic therapy Objective: GENERAL: cooperative HEENT: Atraumatic; EYES; Anicteric, Normal Conjunctiva NECK; supple, normal thyroid, RESPIRATORY: Diminished to auscultation CARDIOVASCULAR: S1-S2 GI: soft, normoactive bowel sounds, : No Renal angle tenderness; EXTREMITIES: No edema, no clubbing, MUSCULOSKELETAL: no muscle waisting NEURO: Awake; no lateralizing signs. SKIN: No Rash PSYCH; Flat affect Vitals/I&O's: Vital Signs Temp Pulse Resp BP Pulse Ox 97.7 F L 56 L 18 146/61 H 100 08/05/19 08:10 08/05/19 08:10 08/05/19 08:10 08/05/19 08:10 08/05/19 08:10 Oxygen Delivery Method Room Air Weight: 70.8 kg Body Mass Index (BMI) 30.4 Finger Stick Blood Glucose 134 Intake and Output for Last 24 Hours 08/03/19 08/04/19 08/05/19 23:59 23:59 23:59 Intake Total 50 / 50 1050 / 1050 Output Total 200 / 800 1000 / 1000 Balance 50 / 50 850 / 250 -1000 / -1000 Microbiology Past 72 Hours 08/03/19 16:34 Urine, Clean Catch Urine Culture - Final Presumptive E. coli Laboratory Results 08/04/19 11:06: POC Glucose 256 H 08/04/19 16:29: POC Glucose 213 H 08/04/19 22:02: POC Glucose 60 L 08/04/19 22:29: POC Glucose 105 08/05/19 06:34: POC Glucose 101 Current Medications Acetaminophen (Tylenol) 1,000 mg PO TID [facility] Last Admin: 08/05/19 05:19 Dose: 1,000 mg Documented by: Apixaban (Eliquis) 5 mg PO BID [facility] Last Admin: 08/05/19 08:35 Dose: 5 mg Documented by: Atorvastatin Calcium (Lipitor) 40 mg PO QHS [facility] Last Admin: 08/04/19 22:10 Dose: 40 mg Documented by: Cyanocobalamin (Vitamin B12) 1,000 mcg PO DAILY [facility] Last Admin: 08/05/19 08:34 Dose: 1,000 mcg Documented by: Donepezil HCl (Aricept) 10 mg PO QHS [facility] Last Admin: 08/04/19 22:10 Dose: 10 mg Documented by: Ergocalciferol (Vitamin D) 50,000 unit PO FR [facility] Last Admin: 08/05/19 08:34 Dose: 50,000 unit Documented by: Ferrous Sulfate (Ferrous Sulfate) 325 mg PO DAILYCM [facility] Last Admin: 08/05/19 08:33 Dose: 325 mg Documented by: Fluticasone Propionate (Flonase Nasal [place]) 1 spray NASAL DAILY [facility] Last Admin: 08/05/19 08:35 Dose: 1 spray Documented by: Glucagon () 1 mg IM .X1 PRN PRN Reason: Hypoglycemia Ceftriaxone Sodium (Rocephin) 1 gm in 50 mls @ 100 mls/hr IV Q24 [facility] Last Infusion: 08/04/19 10:17 Dose: Infused Documented by: Dextrose (Dextrose 10%-Water) 250 mls @ 999 mls/hr IV .Q16M PRN; Protocol PRN Reason: HYPOGLYCEMIA Insulin Human Lispro (Humalog Kwikpen (Bk)) 0 unit SC ACHS [facility]; Protocol Last Admin: 08/05/19 06:57 Dose: Not Given Documented by: Insulin Lispro Protam/Lispro Human (Humalog Mix 75-25 Kwikpen (Bk)) 34 unit SC DAILY@1700 [facility] Last Admin: 08/04/19 16:36 Dose: 34 u Documented by: Levothyroxine Sodium (Synthroid) 50 mcg PO DAILY@0600 [facility] Last Admin: 08/05/19 05:19 Dose: 50 mcg Documented by: Loratadine (Claritin) 10 mg PO DAILY [facility] Last Admin: 08/05/19 08:38 Dose: 10 mg Documented by: Memantine (Namenda) 10 mg PO BID [facility] Last Admin: 08/05/19 08:34 Dose: 10 mg Documented by: Methenamine Hippurate (Hiprex) 1 gm PO QHS [facility] Last Admin: 08/04/19 22:10 Dose: 1 gm Documented by: Ondansetron HCl (Zofran) 4 mg IV Q8H PRN PRN PRN Reason: NAUSEA/VOMITING Sodium Chloride () 10 - 40 ml IV UD PRN PRN Reason: SALINE FLUSH Tolterodine Tartrate (Detrol La) 2 mg PO DAILY [facility] Last Admin: 08/05/19 08:34 Dose: 2 mg Documented by: STROKE Vital Signs/Narrative: Vital Signs Temp Pulse Resp BP Pulse Ox 08/05/19 08:10 97.7 F L 56 L 18 146/61 H 100 08/05/19 08:00 56 L Medical Necessity - Tobacco Use Smoking Status: Never smoker Assessment/Plan All Active Problems (Last Reviewed 06/01/19 @ 10:02 by Fabian Rebolledo MD) Urinary tract infection (Acute) Physical deconditioning (Acute) Fatigue (Acute) Bleeding (Resolved) Bleeding gums (Resolved) Persistent atrial fibrillation (Resolved) Patient is a 73-year-old lady admitted with urinary frequency and assessment of acute cystitis made admitted to regular nursing floor for further management 73 y/o admitted with a complaint of frequency of urination 1. Acute cystitis with E. coli - Patient admitted to regular nursing floor started on Rocephin cultures sent with plans to adjust antibiotics based on culture result ?08/05/2019: Patient urine cultures came back positive for E. coli currently on appropriate antibiotic therapy 2. Diabetes mellitus type 2 -Uncontrolled with hyperglycemia on admission with blood glucose level of 358 and with long-term complications including diabetic nephropathy. Patient is on long-acting insulin did continue in addition to Accu-Cheks before meals and at bedtime with sliding scale coverage 3. Acute renal insufficiency ?Patient started on IV fluid with subsequent monitoring of electrolyte 4. Chronic atrial fibrillation ?Rate controlled on systemic anticoagulation with Eliquis 5. Dyslipidemia ? Patient is on statin therapy, continued at home dose 6. Chronic kidney disease stage III ruled out 7. Chronic congestive heart failure ?With preserved ejection fraction currently not in exacerbation 8. Dementia Patient symptoms controlled with Aricept and Namenda 9. Physical debility Secondary to patient multiple comorbidities requested for PT OT eval and social human services assistants to assist with discharge planning ?Case discussed with case management plans for patient to be transferred to a [facility] facility pending insurance approval. 10. DVT prophylaxis ?On Eliquis Code Visit Inpatient E&M: 98845 Subs Hosp L2
--- NOTE | 2019-08-05 10:29 | CASEMGMT ---
Social Work Note LIZZIE received call from MIKAYLA Walden at [facility] wanting update on pt. LIZZIE updated Iram that pt was admitted to [facility] for debility and UTI and that pt's PCP sent pt to ED for placement to SNF. Iram states that pt walks around fine at [facility] and she doesn't require any assistance at [facility]. LIZZIE updated Iram that pt did do well with PT/OT yesterday (walked 150ft contact guard, assist of 1) so this worker is not sure if pt will even get approved for SNF. LIZZIE updated Iram that if pt gets denied SNF then pt will likely be discharged back to [facility]. LIZZIE updated Iram that pt is medically cleared whenever pre-cert is obtained. Iram does state that pt's son Jose is not very much involved in pt's life but that he really needs to be as pt's dementia is only going to get worse. LIZZIE informed Iram that if pt's family doesn't want to be involved in pt's life then [facility] or SNF will need to look into getting guardianship for pt. Iram states that pt does have CM Caty Higgins at [facility]. Iram requested updates. LIZZIE faxed updated clinicals to [facility] SW placed a call to pt's CM Caty Higgins at [facility]. Caty states that she has had many talks with pt's PCP as he has these concerns but Caty state she just can't remove someone from [facility] and to a different facility. Caty states that she has called [facility] and they directed her to call the [facility] and she has made the report. Caty states again that pt's son Jose is not that involved in pt's life. Caty states she tried to speak with Jose about pt moving closer to him and Jose didn't want that. Caty states that she thinks Jose has the mindset that pt wasn't a good mother so now he is kind of hands off. LIZZIE asked Caty if guardianship has been looked into for pt and Caty states not yet but she feels that it may have to come to that if Jose doesn't want to be [employer]CP[employer]. LIZZIE updated Caty that this worker has tried to call Jose and he has yet to return this worker's phone call. Caty states she has only ever been able to speak with Jose once. LIZZIE updated Caty that right now the plan is [facility] pending pre-cert but that this worker is not sure if pt will get approved as pt is moving well with therapy. Caty just asked to be updated when and where pt is discharged. LIZZIE updated Caty that if pt gets denied SNF then the plan will likely be back to [facility]. Plan: [facility] pending pre-cert Gayathri Bradford ECOLOGICAL MODELER, VASCULAR NEUROLOGIST
[2019-08-05] MEDS: Ceftriaxone 1 GM/50 ML BAG IV (10:54)
[2019-08-05] MEDS: 0.9% Saline Lock 10 ML Syringe IV (10:55)
[2019-08-05 11:20] LABS: Bedside Glucose 239 mg/dL (70-110)
[2019-08-05] MEDS: Insulin Lispro 100 UNIT/ML INSULN.PEN SC (11:46)
--- NOTE | 2019-08-05 12:09 | CASEMGMT ---
Addendum entered by Gayathri Bradford 08/05/19 13:55: LIZZIE faxed completed discharge paperwork to [facility] including transfer to extended care facility, signed medication list and any scripts. Original in SNF folder and copy on pt's chart. LIZZIE completed PAS/RR in HENS. Original in SNF folder and copy on pt's chart. Due to pt's dementia and periods of confusion LIZZIE arranged transportation via cot for 4:00pm. Transportation form completed and placed on SNF folder and copy on pt's chart. LIZZIE updated pt on approval and discharge to [facility] today. LIZZIE updated RN on transportation time. LIZZIE placed a call to pt's CM Caty Higgins and RN Iram at [facility] and updated them that pt will be discharged today. LIZZIE placed a call to pt's son Jose and updated him that pt will be discharged to [facility] today. Plan: [facility] today skilled with [facility] transporting via cot at 4:00pm NINO So Original Note: Social Work Note LIZZIE received call from Eli at [facility] stating pre-cert has been obtained and pt is able to discharge today. Physician updated. LIZZIE will fax discharge paperwork once completed. Plan: [facility] skilled today Gayathri REYNA, POULTRY HUSBANDRY WORKER
--- NOTE | 2019-08-05 12:50 | PCM.TXEXTCAR ---
- Diet 08/03/19 19:33 Diet: Calorie Controlled Food consistency:: Regular Liquid Consistency:: Regular/Thin Is pt able to select menu?: Yes How many daily calories?: 1800 calorie - Routine Orders/Code Status Code Status: Full Code - Therapies Physical Therapy: Eval and Treat Occupational Therapy: Eval and Treat - Allergies/Procedures Done in Hospital Allergies/Adverse Reactions: Allergies colchicine Allergy (Severe, Verified 08/03/19 16:25) HIVES ALLERGY PILLS Adverse Reaction (Uncoded 08/03/19 16:25) Unknown - Type of Care/Length of Stay Estimated LOS: Convalescent Care Less Than 30 days Type of Care Needed: Skilled Rehab Potential: Good Prognosis: Good - Additional Orders/Day of Discharge Day of Discharge: 08/05/19 - Follow Up Care Primary Care Physician: Jim Padgett MD [Primary Care Provider] -
--- NOTE | 2019-08-05 16:21 | NURSING ---
This nurse gave report to Rashawn DEGROOT at [facility].
== END 2019-08-05 16:10 | disposition skilled nursing facility (03) ==
LOC: ED 18:10 → MS3 18:12
PROVIDERS: Admitting Provider Student in an Organized Health Care Education/Training Program; Emergency Provider Emergency Medicine; PCP Family Medicine; Referring Provider Family Medicine; Visit Provider Internal Medicine
DX: N30.00 Acute cystitis without hematuria (principal); I48.20 Chronic atrial fibrillation, unspecified; E11.22 Type 2 diabetes mellitus with diabetic chronic kidney disease; E78.5 Hyperlipidemia, unspecified; N18.3 Chronic kidney disease, stage 3 (moderate); I50.32 Chronic diastolic (congestive) heart failure; E11.65 Type 2 diabetes mellitus with hyperglycemia; F03.90 Unspecified dementia, unspecified severity, without behavioral disturbance, psychotic disturbance, mood disturbance, and anxiety; Z79.4 Long term (current) use of insulin; R06.02 Shortness of breath; G47.33 Obstructive sleep apnea (adult) (pediatric); I48.0 Paroxysmal atrial fibrillation; E03.9 Hypothyroidism, unspecified; Z79.899 Other long term (current) drug therapy; R10.9 Unspecified abdominal pain
CPT/HCPCS: 36415; 71046; 74019; 80048; 80053; 81001; 82962; 83036; 83735; 84439; 84443; 85025; 87086; 87088; 87186; 96361; 96365; 96366; 97116; 97162; 97166; 97535; 99218; 99285; J7030; J7050; A4216; G0378

== ENCOUNTER 2019-08-28 16:09 | Emergency (ER) | payer MEDICARE, SELFPAY ==
[2019-08-03 18:37] VITALS: BMI 30.4
[2019-08-28 16:10] VITALS: BP 158/80; PULSE 58; RESP 18; TEMP 36.6; O2SAT 100; BMI 31.2
[2019-08-28 16:20] LABS: Bedside Glucose 71 mg/dL (70-110)
--- NOTE | 2019-08-28 16:25 | EKG12_ITS ---
Test Reason : Blood Pressure : / mmHG Vent. Rate : 060 BPM Atrial Rate : 060 BPM P-R Int : 148 ms QRS Dur : 154 ms QT Int : 498 ms P-R-T Axes : 006 -33 129 degrees QTc Int : 498 ms Normal sinus rhythm Left axis deviation Left bundle branch block Abnormal ECG Confirmed by ANG SCHULER, LEANNA ([id number]), photographic editor VIANCA MCCANN ([id number]) on 08/30/2019 8:02:26 AM Referred By: JOHN Confirmed By:LEANNA FRY MD
--- NOTE | 2019-08-28 16:34 | ED.RN ---
DR. LOPEZ AWARE OF SUICIDAL THOUGHTS. DENIES NEED FOR SITTER.
[2019-08-28 16:49] LABS: Absolute Lymphocyte Count 1.33 X10^3/uL (0.83-4.51); Absolute Neutrophil Count 5.3 X10^3/uL (2.0-7.7); Basophil# 0.04 X10^3/uL; Basophil% 0.6 % (0-1); Eosinophil# 0.11 X10^3/uL; Eosinophils% 1.5 % (0-5); Hematocrit 42.1 % (37-47); Lymphocyte # 1.33 X10^3/ul (4.0); Lymphocyte % 18.7 % (19-41); Mean Corp Hgb Conc 33.3 g/dL (32-36); Mean Corpuscular Hgb 32.3 pg (27.0-32.0); Mean Platelet Vol. 10.8 fl (6.2-12.0); Monocyte# 0.31 X10^3/uL; Monocyte% 4.4 % (0-10); NRBC Flagged by Analyzer 0 % (0-5); Neutrophil # 5.26 X10^3/uL (2.7-7.7); Neutrophil % 74.1 % (47-70); Platelet Count 162 K/mm3 (150-450); RBC Distribution Width SD 46.1 fl (35.1-43.9); Red Blood Count 4.34 M/mm3 (4.2-5.4); White Blood Count 7.1 K/mm3 (4.4-11.0)
[2019-08-28 17:07] LABS: ALB/GLOB Ratio 0.8 RATIO (0.9-2.4); AST(SGOT) 21 U/L (15-37); Alanine Aminotransfer ALT/SGPT 32 U/L (13-56); Albumin, Serum 3.2 g/dL (3.2-5.0); Alkaline Phosphatase 113 U/L (45-117); Anion Gap 5 (5-15); BUN 12 mg/dL (7-18); BUN/Creat Ratio 10.8 RATIO (10-20); Calcium,Total 8.7 mg/dL (8.5-10.1); Chloride 112 mmol/L (98-107); Creatinine, Serum 1.11 mg/dL (0.55-1.02); EST Glomerular Filtration Rate 51 mL/min (>60); Est Glom Filt Rate - Afr Amer 62 mL/min (>60); Estimated Creatinine Clearance 30.97 ml/min; Globulin 3.9 g/dL (2.2-4.2); Glucose 86 mg/dL (74-106); Potassium 3.1 mmol/L (3.5-5.1); Protein, Total 7.1 g/dL (6.4-8.2); Sodium Level 144 mmol/L (136-145)
[2019-08-28 17:11] LABS: Mucous, Urine 0 SEEN /hpf (<or=2+)
[2019-08-28 17:12] LABS: Color, Urine Yellow (Yellow); Glucose, Dipstick Normal (Normal); Ketone-Dipstick Negative (Negative); Leukocyte Esterase-Dipstick 500 /ul (Negative); Nitrite-Dipstick Positive (Negative); Occult Blood-Urine 10 /ul (Negative); Protein-Dipstick Negative (Negative); Specific Gravity, Urine 1.015 (1.002-1.030); Urine Bilirubin Dipstick Negative (Negative); Urine Clarity Cloudy (Clear); Urine Urobilinogen Normal (Normal)
--- NOTE | 2019-08-28 17:19 | ED.DCSUM_ITS ---
History of Present Illness Chief Complaint: General Illness Detail of Chief Complaint: Multiple symptoms and complaints Informant: Patient Onset: Weeks - Approximately 2 weeks if not longer Context: Gradual Onset Timing: Continuous Quality: Diarrhea Location: GI Current Severity: Mild Maximum Severity: Moderate Worsened by: Eating spoiled updated food Relieved by: Nothing Associated Symptoms: Diarrhea with blood and mucus Narrative: Patient 74-year-old woman who presents because she has multiple symptoms. I was informed by her nurse that she was eating spoiled/outdated food with mold to harm herself. She was asked specifically this question. She denied. When asked why she would eat food that is spoiled she was not able to give me an answer. She denies fever, chills night sweats. She denies weight gain or weight loss. She denies cardiac respiratory symptoms. She does report intermittent abdominal pain. She does report having diarrhea. She is not able to tell me the color or consistency or frequency of her diarrhea. She states that she has noted blood and mucus. She is uncertain whether she does or does not have hemorrhoids. She denies rectal pain. She denies dysuria, frequency, urgency or hematuria. She denies joint pain or joint swelling. She denies rash. She does complain of thirst, dry mouth and orthostatic symptoms. She also reports decreased urine output. Review of prior records indicates no prior history of psychiatric disorder and she is on no psychiatric meds. Prior similar symptoms: No Recent Illness/Hospitalization: No - Past Medical History (1) Vertigo Status: Chronic (2) Paroxysmal atrial fibrillation Status: Chronic (3) Chronic diastolic (congestive) heart failure Status: Chronic (4) Hyperlipidemia Status: Chronic (5) CKD (chronic kidney disease), stage III Status: Chronic Past Medical History - Allergies and Home Meds Allergies/Adverse Reactions: Allergies colchicine Allergy (Severe, Verified 08/03/19 16:25) HIVES ALLERGY PILLS Adverse Reaction (Uncoded 08/03/19 16:25) Unknown Primary Care Physician: Jim Padgett MD [Primary Care Provider] - Prior records reviewed: Yes Lives: Alone Smoking Status: Never smoker Alcohol: None Drugs: None - Family History Paternal Family History: Family History (Last Reviewed 06/01/19 @ 10:02 by Fabian Rebolledo MD) Sister Cancer Family History: Reports: Hypertension Maternal Family History: Family History (Last Reviewed 06/01/19 @ 10:02 by Fabian Rebolledo MD) Sister Cancer Family History: Reports: Hypertension Review of Systems General: Denies: Chills, Fever, Malaise, Subjective, Sweats, Weight loss, - ENT: Denies: Bilateral ear pain, Rhinorrhea, Sore throat Cardiovascular: Denies: Chest pain, Palpitations Respiratory: Denies: Dyspnea, Cough, Dyspnea on exertion Gastrointestinal: Reports: Abdominal pain, Diarrhea. Denies: Nausea, Vomiting, Constipation, Melena, Hematochezia, -, - Genitourinary: Denies: Dysuria, Hematuria, Frequency Musculoskeletal: Denies: Myalgias, Arthralgias, Neck pain, Back pain, Swelling, Extremity Pain Skin: Denies: Rash, Wounds Neurological: Denies: Headache, Weakness, Numbness Psych: Denies: Depression, Anxiety, Suicidal thoughts Hematologic: Denies: Easy bruising, Easy bleeding Physical Exam Vital Signs/Narrative: Vital Signs Temp Pulse Resp BP Pulse Ox 08/28/19 16:10 97.8 F 58 L 18 158/80 H 100 Inital Vital Signs reviewed: Yes General: Well nourished, Well developed, No Acute Distress Head: Normocephalic, Atraumatic Eyes: Perrl, EOMI. Negative for: Pale conjunctiva, Scleral icterus ENT: No rhinorrhea, TM's clear, Dry mucous membranes Neck: Supple, Nontender, No lymphadenopathy, No JVD Cardiovascular: Regular rate, Regular rhythm, No murmurs, Normal S1, Normal S2 Respiratory: No distress, CTA bilaterally, Chest nontender Abdomen: Soft, Nontender, Nondistended, Normal bowel sounds, No masses Rectal: - - Evidence of external hemorrhoids noted. There is mucus. Minimal brown fecal matter noted Back: Nontender, Normal Inspection Extremities: Nontender, No edema Skin: Normal color, No rash, No Trauma. Negative for: Cyanosis, Diaphoresis, Jaundice Neurological: Alert, Oriented x3, Cranial nerves II-XII grossly intact, Normal Strength, Normal Sensation Psychological: - - Flat affect Diagnostic/Tx/Re-eval Laboratory Results 08/28/19 08/28/19 08/28/19 16:14 16:33 16:33 WBC 7.1 RBC 4.34 Hgb 14.0 Hct 42.1 MCV 97.0 MCH 32.3 H MCHC 33.3 RDW Std Deviation 46.1 H RDW Coeff of Roshni 13.0 Plt Count 162 MPV 10.8 Immature Gran % (Auto) 0.700 Neut % (Auto) 74.1 H Lymph % (Auto) 18.7 L Franklin % (Auto) 4.4 Eos % (Auto) 1.5 Baso % (Auto) 0.6 Absolute Neuts (auto) 5.3 Absolute Lymphs (auto) 1.33 Nucleated RBC % 0 Sodium 144 Potassium 3.1 L Chloride 112 H Carbon Dioxide 27.0 Anion Gap 5 BUN 12 Creatinine 1.11 H Estim Creat Clear Calc 30.97 Est GFR (MDRD) Af Amer 62 Est GFR (MDRD) Non-Af 51 L BUN/Creatinine Ratio 10.8 Glucose 86 Calcium 8.7 Total Bilirubin 0.40 AST 21 ALT 32 Alkaline Phosphatase 113 Total Protein 7.1 Albumin 3.2 Globulin 3.9 Albumin/Globulin Ratio 0.8 L Urine Color Urine Clarity Urine pH Ur Specific [place] Urine Protein Urine Glucose (UA) Urine Ketones Urine Occult Blood Urine Nitrite Urine Bilirubin Urine Urobilinogen Ur Leukocyte Esterase Urine RBC Urine WBC Ur Squamous Epith Cells Urine Bacteria Urine Mucus POC Glucose 71 08/28/19 17:04 WBC RBC Hgb Hct MCV MCH MCHC RDW Std Deviation RDW Coeff of Roshni Plt Count MPV Immature Gran % (Auto) Neut % (Auto) Lymph % (Auto) Franklin % (Auto) Eos % (Auto) Baso % (Auto) Absolute Neuts (auto) Absolute Lymphs (auto) Nucleated RBC % Sodium Potassium Chloride Carbon Dioxide Anion Gap BUN Creatinine Estim Creat Clear Calc Est GFR (MDRD) Af Amer Est GFR (MDRD) Non-Af BUN/Creatinine Ratio Glucose Calcium Total Bilirubin AST ALT Alkaline Phosphatase Total Protein Albumin Globulin Albumin/Globulin Ratio Urine Color Yellow Urine Clarity Cloudy Urine pH 6.0 Ur Specific [place] 1.015 Urine Protein Negative Urine Glucose (UA) Normal Urine Ketones Negative Urine Occult Blood 10 H Urine Nitrite Positive H Urine Bilirubin Negative Urine Urobilinogen Normal Ur Leukocyte Esterase 500 H Urine RBC 0-5 SEEN Urine WBC 10-25 SEEN Ur Squamous Epith Cells 0-5 SEEN Urine Bacteria 1+ Urine Mucus 0 SEEN POC Glucose Work-up indicates patient has urinary tract infection. She was treated with antibiotics. Urine culture was sent. Consult was placed to case management for follow-up because of living condition. - Medical Decision Making Will obtain CBC to assess white count and H&H. Will obtain basic metabolic panel to assess renal function as well as electrolytes and specifically to rule out hypokalemia. Urine was obtained to assess for specific gravity and ketones. Will receive 1 L of normal saline wide open. Patient was informed of results. She was informed of treatment plan. She was asked for the fifth time whether she intended to harm herself by eating outdated food. She again denied. ED Disposition - Plan for ED Patient: Disposition: Home or Assisted Living Diagnosis: Urinary tract infection, CKD (chronic kidney disease), stage III Instructions: Bladder Infection (Cystitis), Female (Child) Prescriptions: Cephalexin [Keflex] 500 mg PO 4X/DAY #20 cap Prescription Printed Referrals: Jim Padgett MD [Primary Care Provider] - 3-5 Days if not improving
[2019-08-28 17:30] LABS: Bacteria 1+ /hpf (None Seen); Red Blood Cells-Urine 0-5 SEEN /hpf (0-5); Squamous Epithelial Cells - UA 0-5 SEEN /hpf (5-10); White Blood Cells 10-25 SEEN /hpf (0-5)
[2019-08-28] MEDS: 0.9% Normal Saline 1,000 ML 1000 ML IV (17:43)
[2019-08-28 18:22] VITALS: BP 163/65; PULSE 59; PULSE 63; RESP 20; O2SAT 96; O2SAT 98
[2019-08-28] MEDS: Cephalexin 250 MG Capsule 500 MG PO (18:22)
--- NOTE | 2019-08-29 10:50 | CM.ED ---
SOCIAL WORK INFORMANT: DR. LOPEZ REASON FOR REFERRAL: FOLLOW UP ON CONCERNS RECEIVED ORDER FROM DR. LOPEZ REQUESTING FOLLOW UP ON PATIENT'S LIVING CONDITIONS AND ABILITY TO FEED HERSELF. INFORMED PATIENT ATE OUTDATED FOOD WITH MOLD. CALL TO [facility] AND SPOKE WITH RACHEL. PER RACHEL, IS AWARE OF SITUATION. [facility] AIDES DO GO INTO PATIENT'S APARTMENT TO ASSIST, BUT DO NOT NORMALLY GET INTO HER FRIDGE. [facility] PATIENT DOES HAVE SOME CONFUSION AND VOICES NO CONCERNS FOR PATIENT'S ABILITY TO RESIDE IN ASSISTED LIVING AT THIS TIME. [facility] RESIDENTS DO GET FOOD FROM LOCAL FOOD [facility] AND WILL FOLLOW UP ON CONCERN WITH PATIENT'S FOOD. Vic CHAVEZ, BUFFING AND SUEDING MACHINE OPERATOR, JAVA PROGRAMMING PROFESSOR.
== END 2019-08-28 18:44 | disposition home or self-care (01) ==
PROVIDERS: Emergency Provider Emergency Medicine; PCP Family Medicine
DX: N39.0 Urinary tract infection, site not specified (principal); N18.3 Chronic kidney disease, stage 3 (moderate)
CPT/HCPCS: 80053; 81001; 82962; 85025; 87086; 87088; 87186; 93005; 96360; 99285

== ENCOUNTER 2019-12-15 09:05 | Emergency (ER) | payer MEDICARE, SELFPAY ==
[2019-09-01 14:20] VITALS: BMI 31.2
[2019-12-15 09:06] VITALS: BP 135/59; PULSE 52; RESP 18; TEMP 36.6; O2SAT 99; BMI 25.3
--- NOTE | 2019-12-15 09:16 | CT_ITS ---
STUDY: CT BRAIN WITHOUT CONTRAST REASON FOR EXAM: Female, 74 years old. TRAUMA, FALL, ABD PAIN RADIATION DOSAGE (If Supplied By Facility): CTDIvol = ( 44.99 ) mGy, DLP = ( 745.49 ) mGycm TECHNIQUE: Transaxial CT imaging of the brain was performed without administration of intravenous contrast material. Individualized dose optimization techniques were used for this CT. COMPARISON: Comparison is made with prior examination dated October 03, 2017. FINDINGS: Normal soft tissue structures. Normal calvarium. There is mild cerebral atrophy with widening of the extra-axial spaces and ventricular dilatation. There are areas of decreased attenuation within the white matter tracts of the supratentorial brain, consistent with microvascular disease changes. There are small punctate calcifications of the basal ganglia which are seen in the aging brain as a normal variant. Normal brainstem. Normal cerebellum. There is no intracranial hemorrhage. There are no findings of an acute ischemic infarction. Atherosclerotic calcification of the vertebral arteries and cavernous portions of the internal carotid arteries bilaterally. Normal visualized paranasal sinuses. CT/Brain/Head without Contrast IMPRESSION: Chronic involutional changes of the brain. Electronically Signed: Jayro Brandon, at 11:20 EDT , Service support ,
--- NOTE | 2019-12-15 09:18 | CT_ITS ---
STUDY: CT ABDOMEN AND PELVIS WITH CONTRAST REASON FOR EXAM: Female, 74 years old. TRAUMA, FALL, ABD PAIN RADIATION DOSAGE (If Supplied By Facility): CTDIvol = ( 17.54 ) mGy, DLP = ( 911.65 ) mGycm TECHNIQUE: Transaxial images were obtained from the dome of the diaphragm to the symphysis pubis without oral contrast. IV 100mL Isovue-300 was administered. Sagittal and coronal images were reconstructed. Individualized dose optimization techniques were used for this CT. COMPARISON: Comparison is made with prior examination dated August 15, 2017. FINDINGS: Mild increased markings at the lung bases suggestive of scarring. Calcification of the mitral valve annulus. There is decreased attenuation of the liver consistent with steatosis. Normal gallbladder and extrahepatic biliary system. Normal spleen. Normal pancreas. Normal bilateral adrenal glands. There is evidence of bilateral renal atrophy. Tiny cysts are seen in both kidneys. Mild degree of dilated renal pelves bilaterally. There is a small hiatal hernia. Normal small intestine. Moderate amount of fecal material is seen in the colon. Sigmoid diverticulosis. The appendix is visualized and appears normal. There is diffuse atherosclerotic calcification of the abdominal aorta, without a demonstrated aneurysm. Normal inferior vena cava. Normal retroperitoneum. Distended urinary bladder. There is absence of the uterus consistent with a prior hysterectomy. Normal abdominal wall. There are diffuse degenerative changes of the visualized lumbar spine. Grade 1 anterolisthesis of L4 on L5. CT/Abdomen/Pelvis W IV Cont ONLY IMPRESSION: Moderate amount of fecal material is seen throughout the colon. Fatty infiltration of the liver. Electronically Signed: Jayro Brandon, at 11:24 EDT , Service support ,
--- NOTE | 2019-12-15 09:18 | CT_ITS ---
STUDY: CT CERVICAL SPINE WITHOUT CONTRAST REASON FOR EXAM: Female, 74 years old. TRAUMA, FALL, ABD PAIN RADIATION DOSAGE (If Supplied By Facility): CTDIvol = ( 23.27 ) mGy, DLP = ( 466.40 ) mGycm TECHNIQUE: High resolution transaxial imaging was performed without contrast material. Sagittal and coronal images were reconstructed. Individualized dose optimization techniques were used for this CT. COMPARISON: None FINDINGS: Normal craniovertebral junction. There are degenerative changes of the anterior atlantoaxial articulation. Normal odontoid process. There is straightening of the normal cervical lordosis. Normal vertebral bodies and posterior osseous elements. C2-3: Moderate degree of disc space narrowing. Facet joint hypertrophy and osteoarthritis worse on the right side with the uncovertebral arthrosis. No significant neural foraminal stenosis is seen. C3-4: Mild degree of disc space narrowing. Facet joint osteoarthritis and hypertrophy with uncovertebral arthrosis. Mild degree of bilateral neural foraminal stenosis. C4-5: Minimal anterior listhesis of C4 on C5 most likely secondary to facet joint osteoarthritis and hypertrophy. Spondylosis and uncovertebral arthrosis. C5-6: Fusion of the C5-C6 the disc with a spondylosis. Uncovertebral arthrosis. Facet joint osteoarthritis and moderate degree of bilateral neural foraminal stenosis. C6-7: Marked degree of disc space narrowing. Facet joint osteoarthritis and hypertrophy. Atherosclerotic calcification of the carotid bifurcations. CT/Spine Cervical without Contras IMPRESSION: Multilevel degenerative changes, as described above. Electronically Signed: Jayro Brandon, at 11:22 EDT , Service support ,
--- NOTE | 2019-12-15 09:42 | ED.DCSUM_ITS ---
- ER Visit Summary Date of Service: 12/15/19 Chief Complaint: [Fall with injury to back] History of Present Illness: The patient is a 74 F [presents to the emergency department via EMS from [facility]. Patient apparently had a fall this morning. Patient is a poor historian and cannot really tell me what happened. Patient has history of dementia. She is on Eliquis for history of A. fib. She does state that she hit her head. She complains of some neck pain. She complains of back pain and abdominal pain. Patient has history of CHF, high cholesterol, A. fib, chronic kidney disease.] Physical Examination: [HEENT-PERRLA, EOMI. Cranial nerves II through XII grossly intact. TMs clear. Mucous membranes moist. No adenopathy. No external evidence of trauma to her head. She has some mild C-spine tenderness on palpation diffusely. No bony step-offs noted. Cardiovascular-regular rate and rhythm without murmur or ectopy Lungs-clear to auscultation, chest wall stable without crepitus or subcu emphysema Abdomen-normoactive bowel sounds, soft. Mild diffuse tenderness throughout. There is no rebound, rigidity, or peritoneal signs. Back exam-patient has tenderness diffusely over lumbar spine. No ecchymosis or bruising noted. Extremities-intact ?4, normal range of motion, normal pulses, atraumatic] Test Results: [CBC with differential was unremarkable. Chemistries unremarkable. CT brain showed chronic involutional changes. CT C-spine showed degenerative changes. CT scan of the abdomen pelvis showed moderate stool and degenerative changes of the spine. Emergency Department Course and Treatment: [While in the department patient had an IV line established. She did have some emesis x1 and was given Zofran 4 mg IV.] Treatment Plan: [Discharge to home with advised to follow-up with primary care physician 3 to 5 days.] Disposition: [Discharged home in stable condition] Impression: [Mechanical fall Closed head injury Contusion back] This note was generated with [employer] dictation software. It may contain incorrect words, spelling, and punctuation that were not noted in review of the chart prior to signing ED Disposition - Plan for ED Patient: Referrals: Jim Padgett MD [Primary Care Provider] -
[2019-12-15 09:54] LABS: Absolute Lymphocyte Count 0.71 X10^3/uL (0.83-4.51); Absolute Neutrophil Count 6.8 X10^3/uL (2.0-7.7); Basophil# 0.02 X10^3/uL; Basophil% 0.3 % (0-1); Eosinophil# 0.01 X10^3/uL; Eosinophils% 0.1 % (0-5); Hematocrit 44.1 % (37-47); Hemoglobin 13.7 g/dL (12.0-15.0); Lymphocyte # 0.71 X10^3/ul (4.0); Lymphocyte % 9.1 % (19-41); Mean Corp Hgb Conc 31.1 g/dL (32-36); Mean Corpuscular Hgb 32.9 pg (27.0-32.0); Mean Platelet Vol. 11.8 fl (6.2-12.0); Monocyte# 0.27 X10^3/uL; Monocyte% 3.4 % (0-10); NRBC Flagged by Analyzer 0 % (0-5); Neutrophil # 6.78 X10^3/uL (2.7-7.7); Neutrophil % 86.5 % (47-70); Platelet Count 159 K/mm3 (150-450); RBC Distribution Width CV 13.4 % (11.6-14.6); RBC Distribution Width SD 52.4 fl (35.1-43.9); Red Blood Count 4.16 M/mm3 (4.2-5.4); White Blood Count 7.8 K/mm3 (4.4-11.0)
--- NOTE | 2019-12-15 09:56 | NURSING ---
CHEMISTRIES HEMOLIZED
[2019-12-15] MEDS: 0.9% Normal Saline 1,000 ML 150 ML IV (10:16)
[2019-12-15 10:22] LABS: Anion Gap 6 (5-15); BUN 20 mg/dL (7-18); BUN/Creat Ratio 15.9 RATIO (10-20); Calcium,Total 9.3 mg/dL (8.5-10.1); Chloride 117 mmol/L (98-107); Creatinine, Serum 1.26 mg/dL (0.55-1.02); EST Glomerular Filtration Rate 44 mL/min (>60); Est Glom Filt Rate - Afr Amer 53 mL/min (>60); Estimated Creatinine Clearance 34.18 ml/min; Glucose 120 mg/dL (74-106); Potassium 4.5 mmol/L (3.5-5.1); Sodium Level 146 mmol/L (136-145)
--- NOTE | 2019-12-15 11:09 | ED.RN ---
PT RETURNED FROM CT. BEGAN VOMITING. DR HARGROVE NOTIFIED. PAULETTE SORTO
[2019-12-15 11:10] VITALS: BP 158/63; PULSE 69; RESP 22; O2SAT 98
[2019-12-15] MEDS: Ondansetron 4 MG/2 ML Vial IV (11:10)
--- NOTE | 2019-12-15 11:39 | ED.DEP ---
ED Disposition - Plan for ED Patient: Instructions: ED Mechanical Fall, ED Head Injury Adult, ED Contusion Back Referrals: Jim Padgett MD [Primary Care Provider] - 3-5 Days
[2019-12-15 11:43] VITALS: BP 126/76; O2SAT 98
--- NOTE | 2019-12-15 11:46 | ED.RN ---
report called to bryan at [facility].
--- OUTSIDE RECORDS SUMMARY | 2020-05-01 18:27 | XMS RPT_ITS | CCD ---
:1945 External Reference #:[id number] Author Organization [facility] Care Team Providers Name Role Phone KAITLIN, E Unavailable Unavailable WILLS, J Unavailable Unavailable KAITLIN, E Unavailable Unavailable KAITLIN, E Unavailable Unavailable Andres Unavailable Unavailable JUN, A Unavailable Unavailable JUN, A Unavailable Unavailable Rich Unavailable Unavailable JUN, A Unavailable Unavailable JUN, A Unavailable Unavailable PAGE, R Unavailable Unavailable JUN, A Unavailable Unavailable JUN, A Unavailable Unavailable Kohama Unavailable Unavailable JUN, A Unavailable Unavailable JUN, A Unavailable Unavailable Rizo Unavailable Unavailable JUN, A Unavailable Unavailable JUN, A Unavailable Unavailable Hashiguchi Unavailable Unavailable JUN, A Unavailable Unavailable JUN, A Unavailable Unavailable JUN, A Unavailable Unavailable JUN, A Unavailable Unavailable Crawford Unavailable Unavailable PAGE, R Unavailable Unavailable JUN, A Unavailable Unavailable JUN, A Unavailable Unavailable JUN, A Unavailable Unavailable JUN, A Unavailable Unavailable Crawford Unavailable Unavailable KAITLIN Attending Unavailable KAITLIN Referring Unavailable WILLS Primary Care Unavailable KAITLIN Attending Unavailable KAITLIN Referring Unavailable WILLS Primary Care Unavailable KAITLIN Attending Unavailable KAITLIN Referring Unavailable WILLS Primary Care Unavailable Allergies Reported Allergen Reaction(s) Severity Date of Onset Location colchicine Translations: AOF 11-13-2011 - [facility] [place] [facility] Other [ COLCHICINE, COLCHICINE] Ca mpus Repository Problems Active Problems Category Problem Name Status Date Location Cardiac dysrhythmias Paroxysmal atrial Active 02-06-2017 - [facility] Health fibrillation System (14285) Conduction disorders Left bundle-branch Active 08-14-2017 - [facility], unspecified Medical C enter (32341) Congestive heart Heart failure, Active 02-06-2017 [facility] failure; nonhypertensive unspecified Sys tem (49145) Coronary atherosclerosis Atherosclerotic heart Active 017 - [facility] Health and other heart disease disease of [place] System (09545) coronary artery without angina pectoris Delirium, dementia Vascular dementia with Active 01-23-2017 [facility] amnestic and other behavioral disturbance System (88479) cognitive disorders Diabetes mellitus with Type 2 diabetes mellitus Active 2016 [facility] Health complications with unspecified System (00 000) complications Diabetes mellitus Type 2 diabetes mellitus Active 02-06-2017 [facility] Health without complication without complications System (10932) Genitourinary symptoms Encounter for fitting Active [facility] Health and ill-defined and adjustment of System (84336) conditions urinary device Heart valve disorders Nonrheumatic mitral Active 02-06-2017 [facility] Health (valve) insufficiency System (00667) Hypertension with Hypertensive heart Active 01-23-2017 [facility] Health complications and disease with heart Syst em (70598) secondary hypertension failure Mood disorders Major depressive Active 02-18-2017 [facility] disorder, single System (000 00) episode, unspecified Nutritional deficiencies Vitamin D deficiency, Active [facility] Health unspecified System (85719) Osteoarthritis Unspecified Active 02-06-2017 [facility] osteoarthritis, System (0000 0) unspecified site Other nervous system Other symptoms and signs Active 01-24-20 [facility] Health disorders involving cognitive System ( 87434) functions and awareness Thyroid disorders Hypothyroidism, Active 02-19-2017 [facility] ealth unspecified System (34794) Past or Other Problems Category Problem Name Status Date Location Administrative/social Homelessness Completed 02-19-2017 [facility] Health admission System (80571) Allergic reactions Allergy status to Completed 02-06-2017 [facility] Health other drugs, System (03091) medicaments and biological substances status Calculus of urinary Calculus of ureter Completed 01-22-2017 [facility] Health tract System (92569) Malaise and fatigue Other malaise Completed 02-19-2017 [facility] H ealth System (29829) Other aftercare [facility] (current) Completed 02-19-2017 [facility] use of insulin System (57976 ) Other connective Other specified soft Completed 02-06-2017 [facility] tissue disease tissue disorders System (0 0000) Pulmonary heart Other pulmonary Completed 02-18-2017 [facility] disease embolism without acute Syste m (82102) cor pulmonale Unclassified Edema, unspecified Completed 01-23-2017 - [employer] System (10169) Results Result Name Value Range Unit Interpretation Flag Date Location urine culture on 07-03-02 Bacteria identified Sp. Request/Comment: - Presu rgical Sterilization Specimen received in preservative Normal 02-18-2019 [facility] Cx Nom (U) Chauhan ([id number]) Culture Result - No growth (<100 CFU/ml) Comment: Performed By: #### URCUL ### #[facility] [id number], [place] [phone] progress on 2019-02 PROGRESS HNO ID: [id number] Normal 02-18-2019 [facility] Author: Jakub Aranda) [facility] ([id number]) Service: ? Author Type: Physician Elevator Operator [employer] Type: Progress Notes Filed: 02/22/2019 7:51 PM Note Text: [facility] [place] PATIENT INFO: Abbey Resendiz 73 year old [facility] # [id number] PCP: Jony Wills MD Referred by: Self Consult: A consultation requested by Self, for an opinion regarding U TI My final recommendations communicated back to the requesting physician by way of shared Medical record. CHIEF COMPLAINT: UTI HPI: This is a 73 year old female, who has UTI symptoms , which s tarted in 2019, and involves the Urine, Bladder Patient states this mild in severity and mild in quality, an d is happening intermittently Aggravating factors: Diabetes , Alleviating Factors: No . An d the patient denies having Fever, Chills, Nausea and Vomiting VOIDING SYMPTOMS: All GUROS reviewed, all were negative NTF: 1 Times DTF: Q 2 HOURS FOS: Good Hesitancy: No Straining: No Intermittency: No Urgency: Yes Frequency: Yes Dysuria: Yes Gross Hematuria: No U/A Dipstick Positive Blood - Only No Incomplete Voiding: No Double Voiding: No Post Void Dribbling: No Incontinence: No REVIEW OF SYSTEMS: General: General: Well developed, well nourished. No acute d istress HEENT: Negative for sore throat, difficulty swallowing. Negative for frequent or significant headaches, changes in v ision or hearing. Cardiovascular: No history of cardiovascular symtoms or prob lems. No history of angina, CHF, DE, cardiac surgery of stents. Respiratory: Negative for current cough, dyspnea. No hx of p neumonia in the past six weeks Gastrointestinal: No history of GERD, PUD, abd pain, difficu lty swallowing, GI bleed. Renal: Negative for renal failure and No history of dialysis Musculoskeletal: Negative for joint pain or swelling, back p ain or muscle pain. Skin: Negative for lesions, rash and itching. Psychological: No history of psychiatric symptoms or problem s. Neurologic: No history of TIA's, stroke, CRYSTAL MOUNTER tumor, impaired sensorium, hemiplegia, paraplegia or quadriplegia. No neurological symp toms or problems. Hematology/Oncology: No history of bleeding or clotting diso rder. Pt is not taking anti-coagulation or platelet medications. No hist ory of hematological symptoms or problems. Endocrine: Positive: DM on Insulin PHYSICAL EXAM: There were no vitals taken for this visit. General Appearance/ Constitutional: Well developed, well nou rished, and in no apparent distress Head and Neck normal, no jugular venous extension, no thyrom egaly and no palpable mass Eyes: Pupils are equally round and reactive to light. Extrao cular movements are intact. Respiratory: Clear to auscultation AND percussion Cardiovascular: Normal, Regular rate and rhythm and No murmu rs GI: Soft, Non-tender, No masses, hepatosplenomegaly and No l ymphadenopathy Extremities: Radial and pedal pulses +2, no edema, extremiti es WNL Back: Normal back and mobility Neurological: Normal cognition and motor skills. Skin: Color, texture, turgor normal. ADDITIONAL DATA REVIEWED: Most recent imaging Most recent labs IMPRESSION / PLAN: > History of UTI Symptoms, frequency and urgency > Urine culture today > Rx for Bactrim given for 3 days > Hold Hiprex while on Bactrim > See PCP for Diabetes Control ; Glucosuria 500 in urine Urine culture was negative, symptoms are likely from the glu cose in the urine I spent approximately 40 minutes in this visit, with more th an 50% of the time devoted to patient discussion, counseling, review of re cords and/or coordination of care. Jakub Estrella, MPAS, MT, PAKandaceC cnov on 2019-02-18 CNOV Office Visit (UROLWS) Normal 02-19-20 19 [facility] ABBEY RESENDIZ ([id number]) 1945 [facility] Date Time Provider Department ([id number]) 02/18/19 9:30 AM JAKUB ESTRELLA) UROLWS During your visit today, we recorded the following informati on about you: Pulse Blood pressure Weight Height 54/minute 145/87 78 kg 1.524 m GERMAIN Magdaleno 02/22/2019 7:51 PM Signed [facility] [place] PATIENT INFO: Abbey Resendiz 73 year old [facility] # [id number] PCP: Jony Wills MD Referred by: Self Consult: A consultation requested by Self, for an opinion regarding U TI My final recommendations communicated back to e requesting physician by way of shared Medical record. CHIEF COMPLAINT: UTI HPI: This is a 73 year old female, who has UTI symptoms , which started in 2019, and involves the Urine, Bladder Patient states this mild in severity and mild in quality, an d is happening intermittently Aggravating factors: Diabetes , Alleviating Factors: No . An d the patient denies having Fever, Chills, Nausea and Vomiting VOIDING SYMPTOMS: All GUROS reviewed, all were negative NTF: 1 Times DTF: Q 2 HOURS FOS: Good Hesitancy: No Straining: No Intermittency: No Urgency: Yes Frequency: Yes Dysuria: Yes Gross Hematuria: No U/A Dipstick Positive Blood - Only No Incomplete Voiding: No Double Voiding: No Post Void Dribbling: No Incontinence: No REVIEW OF SYSTEMS: General: General: Well developed, well nourished. No acute d istress HEENT: Negative for sore throat, difficulty swallowing. Negative for frequent or significant headaches, changes in vision or hearing. Cardiovascular: No history of cardiovascular symtoms or prob lems. No history of angina, CHF, DE, cardiac surgery of stents. Respiratory: Negative for current cough, dyspnea. No hx of pneumonia in the past six weeks Gastrointestinal: No history of GERD, PU D, abd pain, difficulty swallowing, GI bleed. Renal: Negative for renal failure and No history of dialysis Musculoskeletal: Negative fo r joint pain or swelling, back pain or muscle pain. Skin: Negative for lesions, rash and itching. Psychological: No history of psychiatric symptoms or problem s. Neurologic: No history of TIA's, stroke, CRYSTAL MOUNTER tumor, impaired sensorium, hemiplegia, paraplegia or quadriplegia. No neuro logical symptoms or problems. Hematology/Oncology: No history of bleeding or clotting di sorder. Pt is not taking anti-coagulation or platelet medications. No hi story of hematological symptoms or problems. Endocrine: Positive: DM on Insulin PHYSICAL EXAM: There were no vitals taken for this visit. General Appearance/ Constitutional: Well develop ed, well nourished, and in no apparent distress Head and Neck normal, no jugular venous extension, no thyrom egaly and no palpable mass Eyes: Pupils are equally round and reactive to light. Extr aocular movements are intact. Respiratory: Clear to auscultation AND percussion Cardiovascular: Normal, Regular rate and rhythm and No murmu rs GI: Soft, Non-tender, No masses, hepatosplenomegaly and No l ymphadenopathy Extremities: Radial and pedal pulses +2, no edema, extremiti es WNL Back: Normal back and mobility Neurological: Normal cognition and motor skills. Skin: Color, texture, turgor normal. ADDITIONAL DATA REVIEWED: Most recent imaging Most recent labs IMPRESSION / PLAN: > History of UTI Symptoms, frequency and urgency > Urine culture today > Rx for Bactrim given for 3 days > Hold Hiprex while on Bactrim > See PCP for Diabetes Control ; Glucosuria 500 in urine Urine culture was negative, symptoms are likely from the glucose in the urine I spent approximately 40 minutes in this visit, with more than 50% of the time devoted to patient discussion, counseling, review of records and/or coordination of care. Jakub Estrella, MPAS, MT, PA-C Referring Provider: SELF [200] Allergies As of Date: 02/18/2019 Noted Allergy Reaction COLCHICINE 11/13/2011 8 - GI Upset Date Reviewed: 02/18/2019 Reviewed by: Jakub Estrella (Pa) - Fully Assessed Reason for Visit: New Patient [172] UTI [116] Primary Visit Diagnosis:Recurrent UTI [N39.0] Order(s):UA DIP, URINE (POC) [4178332] Order #: [id number] . #:[id number] [] sulfamethoxazole-trimethoprim (BACTRIM DS) 800-160 mg per tabletTake 1 tablet by mouth twice daily for 3 days.Disp: 6 tabletRfl: 0 URINE CULTURE [SQURCUL] Order #: [id number] FUTURE Prescriptions as of 02/18/2019 Sig: FLONASE NASAL Use in the nose. ERGOCALCIFEROL (VITAMIN D2) 5* Take 50,000 Units by mouth on * MEMANTINE 28 MG CAPSULE SPRIN* Take by mouth once daily. HUMULIN 70/30 PEN SUBCUTANEOUS Inject subcutaneously. MECLIZINE 25 MG TABLET Take 25 mg by mouth three noah* ONDANSETRON HCL 4 MG TABLET Take 4 mg by mouth every 8 ho* CYCLOBENZAPRINE 5 MG TABLET Take 5 mg by mouth three time* DONEPEZIL 10 MG TABLET Take 10 mg by mouth daily at * METHENAMINE HIPPURATE 1 GRAM * Take 1 g by mouth twice daily * ATORVASTATIN 40 MG TABLET Take 40 mg by mouth once giles* FERROUS SULFATE 325 MG (65 MG* Take 325 mg by mouth daily wi * APIXABAN 5 MG TABLET Take 5 mg by mouth twice giles* LORATADINE 10 MG CAPSULE Take by mouth. VITAMIN B-12 ORAL Take by mouth. MELATONIN 3 MG TABLET Take 3 mg by mouth daily at b* LEVOTHYROXINE 50 MCG TABLET Take 1 tablet by mouth once d* SULFAMETHOXAZOLE 800 MG-TRIME* Take 1 tablet by mouth twice * NOVOLIN 70/30 SUBCUTANEOUS Inject 27 Units subcutaneousl* SERTRALINE 25 MG TABLET Take 25 mg by mouth once giles* OMEGA 3 ORAL Take by mouth. VITAMIN D2 ORAL Take 1.25 mg by mouth twice d* VITAMIN D-3 ORAL Take by mouth. ALLOPURINOL 300 MG TABLET Take 1 tablet by mouth once d* Patient not taking: Reported on 12/04/2017 METHYLPREDNISOLONE 4 MG TABLE* As directed Patient not taking: Reported on 02/18/2019 MELOXICAM 7.5 MG TABLET Take 1 tablet by mouth once d* Patient not taking: Reported on 12/04/2017 DICYCLOMINE 10 MG CAPSULE As needed Patient not taking: Reported on 12/04/2017 Problem List As Of Date 02/18/2019 Noted Resolved Foot pain [M79.673] INVALID FOR* Irritable bowel [K58.9] INVALID FOR* Gout [M10.9] INVALID FOR* Nephrolithiasis [N20.0] INVALID FOR* HTN (hypertension) [I10] INVALID FOR* Hyperlipidemia [E78.5] INVALID FOR* Hypothyroid [E03.9] INVALID FOR* Prescriptions ordered this encounter Disp Refills Start End SULFAMETHOXAZOLE 800 MG-TRIMETHOPRIM* 6 ta* 0 02/18/201911/2018 Class: Print RX Route: ORAL Sig: Take 1 tablet by mouth twice daily for 3 days. Follow-up and Disposition History Recorded Encounter Status:Closed by JAKUB ESTRELLA PA-C on 02/22/19 progress on 2018-11 PROGRESS HNO ID: [id number] Normal 12-15-2018 [facility] Author: Lawson Chauhan ([id number]) Service: ? Author Type: Physician Type: Progress Notes Filed: 12/15/2018 2:05 PM Note Text: PERTINENT CARDIAC HISTORY LBBB HTN HL DM PAF? ASHD? CHF? ADHERENCE TO GUIDELINES SONIA-I or ARB for HF with prior LVEF<40 (NQF 0081) - N/A ASA or Plavix for ASHD (NQF 0067) - N/A Beta zara for ASHD with prior DE or prior LVEF<40 (NQF 00 70) - N/A Beta zara for HF with prior LVEF<40 (NQF 0083) - N/A SONIA-I or ARB for ASHD with DM or prior LVEF<40 (NQF 0066) - N/A Statin therapy for ASHD or FHL or DM - met BMI documented and plan if >25 (NQF 0421) - lifestyle recomm endation form Tobacco use screening and referral (NQF 0028) - lifestyle re commendation form Recommendation for whole food, plant based diet - lifestyle recommendation form CLINICAL IMPRESSION/PLAN: Abbey Resendiz is doing well. She is clinically stable. Bl ood pressure is adequately controlled. She has no evidence of decompensat ed heart failure or coronary disease. I recommend continuing her current medication. Basic profile will be checked. She would like to follow-up with [facility] and we will assist her in that regard. Written and verbal health teaching given to patient, patient verbalizes understanding and agrees with treatment plan. DIAGNOSIS FOR VISIT: PAF Hypertension HISTORY OF PRESENT ILLNESS Abbey Resendiz returns for follow-up of multiple cardiac i ssues, as noted above. She reports stable exercise tolerance. She has had no chest discomfort. She denies bleeding. She has not had any easy bruising. She's had no orthopnea. She denies syncope, palpitations, TI As, amaurosis and claudication. ALLERGIES: ALLERGIES Allergen Reactions - Colchicine GI Upset CURRENT OUTPATIENT MEDICATIONS: atorvastatin (LIPITOR) 40 mg tablet Take 40 mg by mouth once daily. insulin NPH hum/reg insulin hm (NOVOLIN 70/30 SUBCUTANEOUS) Inject 27 Units subcutaneously twice daily. hold for blood sugar less than 110 ferrous sulfate (IRON) 325 mg (65 mg iron) tablet Take 325 m g by mouth daily with breakfast. sertraline (ZOLOFT) 25 mg tablet Take 25 mg by mouth once da yadi. apixaban (ELIQUIS) 5 mg tab tab(s) Take 5 mg by mouth twice daily. loratadine 10 mg cap Take by mouth. FLAXSEED OIL (OMEGA 3 ORAL) Take by mouth. ERGOCALCIFEROL, VITAMIN D2, (VITAMIN D2 ORAL) Take 1.25 mg b y mouth twice daily. on Thursday and Thursday CALCIUM CARBONATE/VITAMIN D3 (VITAMIN D-3 ORAL) Take by mout h. CYANOCOBALAMIN, VITAMIN B-12, (VITAMIN B-12 ORAL) Take by mo uth. melatonin 3 mg Take 3 mg by mouth daily at bedtime. levothyroxine (SYNTHROID) 50 mcg tablet Take 1 tablet by alysha once daily. allopurinol 300 mg tablet Take 1 tablet by mouth once daily. methylPREDNISolone (MEDROL, MARS,) 4 mg tablet As directed meloxicam (MOBIC) 7.5 mg tablet Take 1 tablet by mouth once daily. dicyclomine (BENTYL) 10 mg capsule As needed PHYSICAL EXAMINATION: VITAL SIGNS: BP 136/72 Pulse 82 Wt 173 lb (78.5kg) Chest: Clear to auscultation. Trachea is midline. Air entry is equal. Cardiac: Regular rhythm. S2 is paradoxically split. PMI is n ondisplaced. There is a soft systolic ejection murmur. Carotids are brisk without bruits. JVP is less than 10 cm. Abdomen: Soft and nontender. There are no pulsatile masses or bruits. No liver enlargement. Bowel s ounds are active. Extremities: Trace edema. Pulses are intact and symm etrical. Rash has resolved. EKG shows sinus rhythm. There is left bundle branch block. N o change is seen since 08/14/17. No recent labs are available for review. Electronically Signed: Lawson Madrigal MD December 15, 2018 1:54 PM CC: Jony Wills MD [email or web address] on 2018-12-15 EKG1 NAME : ABBEY RESENDIZ Normal 12-16-19 [facility] PID : [id number] Vic aparicio ([id number]) : 1945 Gender : Female Race : ORD : Procedure Date : Dec 15 2018 13:38:32 Edit Date : Dec 16 2018 08:26:39 Diagnosis:NORMAL SINUS RHYTHM COMPLETE LEFT BUNDLE BRANCH BLOCK ABNORMAL ECG Confirmed by LAWSON MADRIGAL MD ([id number]) on 12/16/2018 8:26:38 A M Ventricular Rate : 70 BPM Atrial Rate : 70 BPM P-R Interval : 154 ms QRS Duration : 146 ms Q-T Interval : 464 ms QTC Calculation(Bezet) : 501 ms P Curtiss : 22 degrees R Curtiss : -43 degrees T Curtiss : 107 degrees Test Reason : Location : 136 : [facility] Overread By : LAWSON MADRIGAL MD Edited By : LAWSON MADRIGAL MD Referred By : LAWSON MADRIGAL Acquired by : jyoti ÁLVAREZ on 2018-12-15 CNOV Office Visit (CAWSTR) Normal 12-16-19 [facility] ABBEY RESENDIZ ([id number]) 1945 F [facility] Time Provider Department ([id number]) 12/15/18 2:00 PM LAWSON MADRIGAL E CAWSTR During your visit today, we recorded the following informati on about you: Pulse Blood pressure Weight 82/minute 136/72 78.5 kg Lawson Madrigal MD 12/15/2018 2:05 PM Signed PERTINENT CARDIAC HISTORY LBBB HTN HL DM PAF? ASHD? CHF? ADHERENCE TO GUIDELINES SONIA-I or ARB for HF with prior LVEF<40 (NQF 0081) - N/A ASA or Plavix for ASHD (NQF 0067) - N/A Beta zara for ASHD with prior DE or prior LVEF<40 (NQF 00 70) - N/A Beta zara for HF with prior LVEF<40 (NQF 0083) - N/A SONIA-I or ARB for ASHD with DM or prior LVEF<40 (NQF 0066) - N/A Statin therapy for ASHD or FHL or DM - met BMI documented and plan if >25 (NQF 0421) - lifestyle recomm endation form Tobacco use screening and referral (NQF 0028) - lifestyle recommendation form Recommendation for whole tami d, plant based diet - lifestyle recommendation form CLINICAL IMPRESSION/PLAN: Abbey Resendiz is doing well. She is clinically stable. Blood pressure is adequately controlled. She has no evidence of decompen sated heart failure or coronary disease. I recommend continuing her current medication. B asic profile will be checked. She would like to follow-up with [facility] and we will assist her in that regard. Written and verbal health teaching given to patient, patient verbalizes understanding and agrees with treatment plan. DIAGNOSIS FOR VISIT: PAF Hypertension HISTORY OF PRESENT ILLNESS Abbey Resendiz returns for follow-up of multiple cardiac issues, as noted above. She reports stable exercise tolerance. She has had no ches t discomfort. She denies bleeding. She has not had any easy bruising. She's had no orthopnea. She denies syncope, palp itations, TIAs, amaurosis and claudication. ALLERGIES: ALLERGIES Allergen Reactions - Colchicine GI Upset CURRENT OUTPATIENT MEDICATIONS: atorvastatin (LIPITOR) 40 mg tablet Take 40 mg by mouth once daily. insulin NPH hum/reg insulin hm (NOVOLIN 70/30 SUBCUTANEOUS ) Inject 27 Units subcutaneously twice daily. hold for blood sugar less than 1 10 ferrous sulfate (IRON) 325 mg (65 mg iron) tablet Take 325 mg by mouth daily with breakfast. sertraline (ZOLOFT) 25 mg tablet Take 25 mg by mouth once da yadi. apixaban (ELIQUIS) 5 mg tab tab(s) Take 5 mg by mouth twice daily. loratadine 10 mg cap Take by mouth. FLAXSEED OIL (OMEGA 3 ORAL) Take by mouth. ERGOCALCIFEROL, VITAMIN D2, (VITAMIN D2 ORAL) Take 1.25 mg b y mouth twice daily. on Thursday and Thursday CALCIUM CARBONATE/VITAMIN D3 (VITAMIN D-3 ORAL) Take by mout h. CYANOCOBALAMIN, VITAMIN B-12, (VITAMIN B-12 ORAL) Take by mo uth. melatonin 3 mg Take 3 mg by mouth daily at bedtime. levothyroxine (SYNTHROID) 50 mcg tablet Take 1 tablet by once daily. allopurinol 300 mg tablet Take 1 tablet by mouth once daily. methylPREDNISolone (MEDROL, MARS,) 4 mg tablet As directed meloxicam (MOBIC) 7.5 mg tablet Take 1 tablet by mouth once daily. dicyclomine (BENTYL) 10 mg capsule As needed PHYSICAL EXAMINATION: VITAL SIGNS: BP 136/72 Pulse 82 Wt 173 lb (78.5kg) Chest: Clear to auscultation. Trachea is midline. Air entry is equal. Cardiac: Regular rhythm. S2 is paradoxically split. PMI is n ondisplaced. There is a soft systolic ejection murmur. Carotids are brisk without bruits. JVP is less than 10 cm. Abdomen: Soft and nontender. There are no pulsatile masses or bruits. No liver enlargement. Bowel sounds are act cathy. Extremities: Trace edema. Pulses are intact and symmetrical. Rash has resolved. EKG shows sinus rhythm. There is left bundle branch bl ock. No change is seen since 08/14/17. No recent labs are available for review. Electronically Signed: Lawson Madrigal MD December 15, 2018 1:54 PM CC: MD Lawson Sadler MD 12/15/2018 1:54 PM Signed LIFESTYLE CHANGE A healthy lifestyle is the most important compon ent of your overall treatment plan. Please give serious thought to the followi ng areas and commit to making lobsterman changes. EAT A WHOLE FOOD, PLANT BASED DIET The nutrition your body gets is more important than the medi cine you take. What matters most is the overall way you eat. We encourage you to minimize the use of animal products (which include dairy and all me ats except fatty fish) and use whole, unprocessed plant foods to provide your protein, vitamins and other nutrients. We have a lot of inform ation to share with you on this topic. This is not a diet. It is a way of life that you will keep with you. EXERCISE REGULARLY It is not important to spend hours in the gym, l ifting weights and perspiring heavily. A total of 2-3 hours per week of aerobic (causing y ou to be moderately short of breath) exercise is sufficient to improv e your health. Talk to us before you begin a new exercise progr am, if you have heart disease or experience shortness of breath or chest pain. REDUCE STRESS Chronic emotional and physical stress leads to disease. Ways of reducing stress include meditation, visualization, prayer, yoga and o ther forms of relaxation therapy. Consistency is the fuentes. Find a techniq ue that works for you and do it every day. CULTIVATE RELATIONSHIPS Loneliness and isolation have a major negative impact on hea lth. Seek out others who can love, care for and nurture you. Avoid hurtf ul relationships. MAINTAIN IDEAL BODY WEIGHT The best way to do this is to do all the things above. Our bodies naturally find the right weight if we keep moving and feed ourselves the right food. If your BMI is greater than 25, we strongly recommend a referra l to a weight management program. Please speak to us or your family physic octavio about available programs. AVOID NICOTINE IN ALL FORMS This includes all tobacco pr oducts, whether chewed, smoked, vaped, or rubbed on the skin. Smoking cessation programs, which can make use of tobacco substitutes, medications to suppress cravings and behavior m anagement, are available. Please contact your family physician about programs in your area. Referring Provider: LAWSON MADRIGAL [[id number]] Allergies As of Date: 12/15/2018 Noted Allergy Reaction COLCHICINE 11/13/2011 8 - GI Upset Date Reviewed: 12/15/2018 Reviewed by: Jose Cummings RN - Fully Assessed Reason for Visit: Recheck [92] Primary Visit Diagnosis:PAF (paroxysmal atrial fibrillation) (HCC) [I48.0] Other Visit Diagnosis:ASHD (arteriosclerotic heart disease) [I25.10] Order(s):ECG COMPLETE [ECG01] Order #: [id number] FUTURE BASIC METABOLIC PNL [SQBMP] Order #: [id number] FUTURE Prescriptions as of 12/15/2018 Sig: ATORVASTATIN 40 MG TABLET Take 40 mg by mouth once giles* NOVOLIN 70/30 SUBCUTANEOUS Inject 27 Units subcutaneousl* FERROUS SULFATE 325 MG (65 MG* Take 325 mg by mouth daily wi * SERTRALINE 25 MG TABLET Take 25 mg by mouth once giles* APIXABAN 5 MG TABLET Take 5 mg by mouth twice giles* LORATADINE 10 MG CAPSULE Take by mouth. OMEGA 3 ORAL Take by mouth. VITAMIN D2 ORAL Take 1.25 mg by mouth twice d* VITAMIN D-3 ORAL Take by mouth. VITAMIN B-12 ORAL Take by mouth. MELATONIN 3 MG TABLET Take 3 mg by mouth daily at b* LEVOTHYROXINE 50 MCG TABLET Take 1 tablet by mouth once d* ALLOPURINOL 300 MG TABLET Take 1 tablet by mouth once d* Patient not taking: Reported on 12/04/2017 METHYLPREDNISOLONE 4 MG TABLE* As directed MELOXICAM 7.5 MG TABLET Take 1 tablet by mouth once d* Patient not taking: Reported on 12/04/2017 DICYCLOMINE 10 MG CAPSULE As needed Patient not taking: Reported on 12/04/2017 Problem List As Of Date 12/15/2018 Noted Resolved Foot pain [M79.673] INVALID FOR* Irritable bowel [K58.9] INVALID FOR* Gout [M10.9] INVALID FOR* Nephrolithiasis [N20.0] INVALID FOR* HTN (hypertension) [I10] INVALID FOR* Hyperlipidemia [E78.5] INVALID FOR* Hypothyroid [E03.9] INVALID FOR* Other instructions from your clinician: LIFESTYLE CHANGE A healthy lifestyle is the most important component of your overall treatment plan. Please give serious thought to the following areas and commit to making lobsterman changes. EAT A WHOLE FOOD, PLANT BASED DIET The nutrition your body gets is more important than the medi cine you take. What matters most is the overall way you eat. We encourage y ou to minimize the use of animal products (which include dairy and all meats except fatty fish) and use whole, unprocessed plant foods to provide your protein, vitamins and other nutrients. We have a lot of info rmation to share with you on this topic. This is not a diet. It is a way of life that you will keep with you. EXERCISE REGULARLY It is not important to spend hours in the gym, lifting weigh ts and perspiring heavily. A total of 2-3 hours per week of aerobic (causing you to be moderately short of breath) exercise is sufficient to improve your health. Talk to us before you begin a new exercise program, if you have heart disease or experience shortness of breath or chest juan n. REDUCE STRESS Chronic emotional and physical stress leads to disease. Ways of reducing stress include meditation, visualization, prayer, yoga and o ther forms of relaxation therapy. Consistency is the fuentes. Find a technique that works for you and do it every day. CULTIVATE RELATIONSHIPS Loneliness and isolation have a major negative impact on hea lth. Seek out others who can love, care for and nurture you. Avoid hurtful relationships. MAINTAIN IDEAL BODY WEIGHT The best way to do this is to do all the things above. Our b odies naturally find the right weight if we keep moving and feed o urselves the right food. If your BMI is greater than 25, we strongly jose mmend a referral to a weight management program. Please speak to us or your family physician about available programs. AVOID NICOTINE IN ALL FORMS This includes all tobacco products, whether chewed, smoked, vaped, or rubbed on the skin. Smoking cessation programs, which can ma ke use of tobacco substitutes, medications to suppress cravings and be havior management, are available. Please contact your family physic octavio about programs in your area. Encounter Status:Closed by LAWSON MADRIGAL MD on 12/15/18 cnnurse on [facility] Nurse Visit (CAWSTR) Normal [address] [place] ABBEY Rodriguez ([id number]) 1945 F [place] Date Time Provider Department ([id number]) 12/15/18 4:00 PM NURSE CARD ADMIN [facility] WSTR CAWSTR During your visit today, we recorded the following informati on about you: Jose Cummings RN 12/15/2018 3:38 PM Signed Ekg completed per order. Pt tolerated procedure without dist ress. Jose Cummings RN Referring Provider: LAWSON MADRIGAL [[id number]] Allergies As of Date: 12/15/2018 Noted Allergy Reaction COLCHICINE 11/13/2011 8 - GI Upset Date Reviewed: 12/15/2018 Reviewed by: Jose Cummings RN - Fully Assessed Reason for Visit: Nurse Visit [792] Visit Diagnoses:PAF (paroxysmal atrial fibrillation) (HCC) [ I48.0] ASHD (arteriosclerotic heart disease) [I25.10] Order(s):ECG COMPLETE [ECG01] Order #: [id number] Prescriptions as of 12/15/2018 Sig: ATORVASTATIN 40 MG TABLET Take 40 mg by mouth once giles* NOVOLIN 70/30 SUBCUTANEOUS Inject 27 Units subcutaneousl* FERROUS SULFATE 325 MG (65 MG* Take 325 mg by mouth daily wi * SERTRALINE 25 MG TABLET Take 25 mg by mouth once giles* APIXABAN 5 MG TABLET Take 5 mg by mouth twice giles* LORATADINE 10 MG CAPSULE Take by mouth. OMEGA 3 ORAL Take by mouth. VITAMIN D2 ORAL Take 1.25 mg by mouth twice d* VITAMIN D-3 ORAL Take by mouth. VITAMIN B-12 ORAL Take by mouth. MELATONIN 3 MG TABLET Take 3 mg by mouth daily at b* ALLOPURINOL 300 MG TABLET Take 1 tablet by mouth once d* Patient not taking: Reported on 12/04/2017 METHYLPREDNISOLONE 4 MG TABLE* As directed MELOXICAM 7.5 MG TABLET Take 1 tablet by mouth once d* Patient not taking: Reported on 12/04/2017 DICYCLOMINE 10 MG CAPSULE As needed Patient not taking: Reported on 12/04/2017 LEVOTHYROXINE 50 MCG TABLET Take 1 tablet by mouth once d* Problem List As Of Date 12/15/2018 Noted Resolved Foot pain [M79.673] INVALID FOR* Irritable bowel [K58.9] INVALID FOR* Gout [M10.9] INVALID FOR* Nephrolithiasis [N20.0] INVALID FOR* HTN (hypertension) [I10] INVALID FOR* Hyperlipidemia [E78.5] INVALID FOR* Hypothyroid [E03.9] INVALID FOR* Visit Notes: >> Jose Cummings RN ThuDecember 15, 2018 3:38 PM Status: Signed Ekg completed per order. Pt tolerated procedure without dist ress. Jose Cummings RN Encounter Status:Closed by JOSE CUMMINGS RN on 12/15/18 tsh on 2018-06-21 TSH Qn 2.240 0.400-5.500 uU/mL Normal 06-21-2018 [facility] ([id number]) Comment: Performed By: #### TSH #### [facility] [address] [place], [place] [address] progress on 2018-06 PROGRESS HNO ID: [id number] Normal 06-21-2018 [facility] Author: Lawson Madrigal [place] ([id number]) Service: (none) Author Type: Physician Type: Progress Notes Filed: 06/21/2018 4:11 PM Note Text: PERTINENT CARDIAC HISTORY BBB HTN HL DM PAF? ASHD? CHF? ADHERENCE TO GUIDELINES SONIA-I or ARB for HF with prior LVEF<40 (NQF 0081) - N/A ASA or Plavix for ASHD (NQF 0067) - N/A Beta zara for ASHD with prior DE or prior LVEF<40 (NQF 00 70) - N/A Beta azra for HF with prior LVEF<40 (NQF 0083) - N/A SONIA-I or ARB for ASHD with DM or prior LVEF<40 (NQF 0066) - N/A Statin therapy for ASHD or FHL or DM - met BMI documented and plan if >25 (NQF 0421) - lifestyle recomm endation form Tobacco use screening and referral (NQF 0028) - lifestyle re commendation form Recommendation for whole food, plant based diet - lifestyle recommendation form CLINICAL IMPRESSION/PLAN: Abbey Resendiz has stable cardiac disease. There is no flor dence of progressive conduction abnormality. Heart failure is not mei arent by physical exam or history. I recommend that she continue her current medication. Lisino pril can be restarted for blood pressure control as needed. Basic profil e will be checked today. I requested that vital signs be checked daily and sent to us in one week. I also requested that the staff nurse practitioner evaluate her rash and make recommendations. I recommend that she be seen again in 6 months or as needed. Written and verbal health teaching given to patient, patient verbalizes understanding and agrees with treatment plan. DIAGNOSIS FOR VISIT: Left bundle branch block Hypertension HISTORY OF PRESENT ILLNESS Abbey Resendiz returns for follow-up of multiple cardiac i ssues, as noted above. She reports stable exercise tolerance. She's had no chest di scomfort. She denies orthopnea, edema, syncope, palpitations, TIAs, amauro sis and claudication. She is no longer taking lisinopril. She reports that other d octors have been making changes in her medication. She has a rash on her face which she would like treated. ALLERGIES: ALLERGIES Allergen Reactions - Colchicine GI Upset CURRENT OUTPATIENT MEDICATIONS: atorvastatin (LIPITOR) 40 mg tablet Take 40 mg by mouth once daily. insulin NPH hum/reg insulin hm (NOVOLIN 70/30 SUBCUTANEOUS) Inject 27 Units subcutaneously twice daily. hold for blood sugar less than 110 ferrous sulfate (IRON) 325 mg (65 mg iron) tablet Take 325 m g by mouth daily with breakfast. sertraline (ZOLOFT) 25 mg tablet Take 25 mg by mouth once da yadi. apixaban (ELIQUIS) 5 mg tab tab(s) Take 5 mg by mouth twice daily. loratadine 10 mg cap Take by mouth. FLAXSEED OIL (OMEGA 3 ORAL) Take by mouth. ERGOCALCIFEROL, VITAMIN D2, (VITAMIN D2 ORAL) Take 1.25 mg b y mouth twice daily. on Thursday and Thursday CYANOCOBALAMIN, VITAMIN B-12, (VITAMIN B-12 ORAL) Take by mo uth. melatonin 3 mg Take 3 mg by mouth daily at bedtime. methylPREDNISolone (MEDROL, MARS,) 4 mg tablet As directed levothyroxine (SYNTHROID) 50 mcg tablet Take 1 tablet by once daily. CALCIUM CARBONATE/VITAMIN D3 (VITAMIN D-3 ORAL) Take by mo h. allopurinol 300 mg tablet Take 1 tablet by mouth once daily. meloxicam (MOBIC) 7.5 mg tablet Take 1 tablet by mouth once daily. dicyclomine (BENTYL) 10 mg capsule As needed PHYSICAL EXAMINATION: VITAL SIGNS: BP 130/70 Pulse 77 Ht 5' 0 (1.52m) Wt 17 5 lb 9.6 oz (79.7kg) BMI 34.29 kg/(m2). Chest: Clear to auscultation. Trachea is midline. Air entry is equal. Cardiac: Regular rhythm. S2 is paradoxically split. PMI is n ondisplaced. There is a soft systolic ejection murmur. Carotids are brisk without bruits. JVP is less than 10 cm. Abdomen: Soft and nontender. There are no pulsatile masses or bruits. No liver enlargement. Bowel s ounds are active. Extremities: Trace edema. Pulses are intact and symm etrical. Skin: She has numerous Maculopapular lesions on her face whi ch resemble bites. She has none on other exposed areas. No recent labs are available. Electronically Signed: Lawson Madrigal MD June 21, 2018 2:26 PM CC: Jony Wills MD magnesium on 2017-07 Magnesium [Mass/Vol] 1.7 1.7-2.3 mg/dL Normal 8 [facility] ([id number]) cnov on 2018-06-21 CNOV Office Visit (CAWSTR) Normal 06-21-20 18 [facility] ABBEY RESENDIZ ([id number]) 1945 F [place] Date Time Provider Department ([id number]) 06/21/18 1:45 PM LAWSON MADRIGAL CAWSTR During your visit today, we recorded the following informati on about you: Pulse Blood pressure Weight Height 77/minute 130/70 79.7 kg 1.524 m Lawson Madrigal MD 06/21/2018 4:11 PM Signed PERTINENT CARDIAC HISTORY BBB HTN HL DM PAF? ASHD? CHF? ADHERENCE TO GUIDELINES SONIA-I or ARB for HF with prior LVEF<40 (NQF 0081) - N/A ASA or Plavix for ASHD (NQF 0067) - N/A Beta zara for ASHD with prior DE or prior LVEF<40 (NQF 00 70) - N/A Beta zara for HF with prior LVEF<40 (NQF 0083) - N/A SONIA-I or ARB for ASHD with DM or prior LVEF<40 (NQF 0066) - N/A Statin therapy for ASHD or FHL or DM - met BMI documented and plan if >25 (NQF 0421) - lifestyle recomm endation form Tobacco use screening and referral (NQ 0028) - lifestyle recommendation form Recommendation for whole tami d, plant based diet - lifestyle recommendation form CLINICAL IMPRESSION/PLAN: Abbey Resendiz has stable cardiac disease. There is no flor dence of progressive conduction abnormality. Heart failur e is not apparent by physical exam or history. I recommend that she continue her current medication. Lisino pril can be restarted for blood pressure control as needed. Basic profile will be checked today. I requested that vital signs be checked daily and sent to us in one week. I also requested that the staff nurse practitioner evaluate her rash and make recommendations. I recommend that she be seen again in 6 months or as needed. Written and verbal health teaching given to patient, patient verbalizes understanding and agrees with treatment plan. DIAGNOSIS FOR VISIT: Left bundle branch block Hypertension HISTORY OF PRESENT ILLNESS Abbey Resendiz returns for follow-up of multiple cardiac issues, as noted above. She reports stable exercise tolerance. She's had no chest di scomfort. She denies orthopnea, edema, syncope, palpitations, TIAs, amauro sis and claudication. She is no longer taking lisinopril. She reports that o ther doctors have been making changes in her medication. She has a rash on he r face which she would like treated. ALLERGIES: ALLERGIES Allergen Reactions - Colchicine GI Upset CURRENT OUTPATIENT MEDICATIONS: atorvastatin (LIPITOR) 40 mg tablet Take 40 mg by mouth once daily. insulin NPH hum/reg insulin hm (NOVOLIN 70/30 SUBCUTANEOUS ) Inject 27 Units subcutaneously twice daily. hold for blood sugar less than 1 10 ferrous sulfate (IRON) 325 mg (65 mg iron) tablet Take 325 mg by mouth daily with breakfast. sertraline (ZOLOFT) 25 mg tablet Take 25 mg by mouth once da yadi. apixaban (ELIQUIS) 5 mg tab tab(s) Take 5 mg by mouth twice daily. loratadine 10 mg cap Take by mouth. FLAXSEED OIL (OMEGA 3 ORAL) Take by mouth. ERGOCALCIFEROL, VITAMIN D2, (VITAMIN D2 ORAL) Take 1.25 mg b y mouth twice daily. on Thursday and Thursday CYANOCOBALAMIN, VITAMIN B-12, (VITAMIN B-12 ORAL) Take by mo uth. melatonin 3 mg Take 3 mg by mouth daily at bedtime. methylPREDNISolone (MEDROL, MARS,) 4 mg tablet As directed levothyroxine (SYNTHROID) 50 mcg tablet Take 1 tablet by alysha th once daily. CALCIUM CARBONATE/VITAMIN D3 (VITAMIN D-3 ORAL) Take by mout h. allopurinol 300 mg tablet Take 1 tablet by mouth once daily. meloxicam (MOBIC) 7.5 mg tablet Take 1 tablet by mouth once daily. dicyclomine (BENTYL) 10 mg capsule As needed PHYSICAL EXAMINATION: VITAL SIGNS: BP 130/70 Pulse 77 Ht 5' 0 (1.52m) Wt 17 5 lb 9.6 oz (79.7kg) BMI 34.29 kg/(m2). Chest: Clear to auscultation. Trachea is midline. Air entry is equal. Cardiac: Regular rhythm. S2 is paradoxically split. PMI is n ondisplaced. There is a soft systolic ejection murmur. Carotids are brisk without bruits. JVP is less than 10 cm. Abdomen: Soft and nontender. There are no pulsatile masses or bruits. No liver enlargement. Bowel sounds are act cathy. Extremities: Trace edema. Pulses are intact and symmetrical. Skin: She has numerous Maculopapular lesions on her face which resemble bites. She has none on other exposed areas. No recent labs are available. Electronically Signed: Lawson Madrigal MD June 21, 2018 2:26 PM CC: MD Lawson Sadler MD 06/21/2018 2:26 PM Signed LIFESTYLE CHANGE A healthy lifestyle is the most important compon ent of your overall treatment plan. Please give serious thought to the followi ng areas and commit to making halfway changes. EAT A WHOLE FOOD, PLANT BASED DIET The nutrition your body gets is more important than the medi cine you take. What matters most is the overall way you eat. We encourage you to minimize the use of animal products (which include dairy and all me ats except fatty fish) and use whole, unprocessed plant foods to provide your protein, vitamins and other nutrients. We have a lot of inform ation to share with you on this topic. This is not a diet. It is a way of life that you will keep with you. EXERCISE REGULARLY It is not important to spend hours in the gym, l ifting weights and perspiring heavily. A total of 2-3 hours per week of aerobic (causing y ou to be moderately short of breath) exercise is sufficient to improv e your health. Talk to us before you begin a new exercise progr am, if you have heart disease or experience shortness of breath or chest pain. REDUCE STRESS Chronic emotional and physical stress leads to disease. Ways of reducing stress include meditation, visualization, prayer, yoga and o ther forms of relaxation therapy. Consistency is the fuentes. Find a techniq ue that works for you and do it every day. CULTIVATE RELATIONSHIPS Loneliness and isolation have a major negative impact on hea lth. Seek out others who can love, care for and nurture you. Avoid hurtf ul relationships. MAINTAIN IDEAL BODY WEIGHT The best way to do this is to do all the things above. Our bodies naturally find the right weight if we keep moving and feed ourselves the right food. If your BMI is greater than 25, we strongly recommend a referra l to a weight management program. Please speak to us or your family physic octavio about available programs. AVOID NICOTINE IN ALL FORMS This includes all tobacco pr oducts, whether chewed, smoked, vaped, or rubbed on the skin. Smoking cessation programs, which can make use of tobacco substitutes, medications to suppress cravings and behavior m anagement, are available. Please contact your family physician about programs in your area. Referring Provider: LAWSON MADRIGAL [[id number]] Allergies As of Date: 06/21/2018 Noted Allergy Reaction COLCHICINE 11/13/2011 8 - GI Upset Date Reviewed: 06/21/2018 Reviewed by: Tressa Ontiveros MA - Fully Assessed Reason for Visit: Established Patient [175] Primary Visit Diagnosis:PAF (paroxysmal atrial fibrillation) (HCC) [I48.0] Other Visit Diagnosis:Essential hypertension [I10] Order(s):BASIC METABOLIC PNL [SQBMP] Order #: [id number] FUT URE TSH BLD [SQTSH] Order #: [id number] FUTURE Prescriptions as of 06/21/2018 Sig: ATORVASTATIN 40 MG TABLET Take 40 mg by mouth once giles* NOVOLIN 70/30 SUBCUTANEOUS Inject 27 Units subcutaneousl* FERROUS SULFATE 325 MG (65 MG* Take 325 mg by mouth daily wi * SERTRALINE 25 MG TABLET Take 25 mg by mouth once giles* APIXABAN 5 MG TABLET Take 5 mg by mouth twice giles* LORATADINE 10 MG CAPSULE Take by mouth. OMEGA 3 ORAL Take by mouth. VITAMIN D2 ORAL Take 1.25 mg by mouth twice d* VITAMIN B-12 ORAL Take by mouth. MELATONIN 3 MG TABLET Take 3 mg by mouth daily at b* METHYLPREDNISOLONE 4 MG TABLE* As directed LEVOTHYROXINE 50 MCG TABLET Take 1 tablet by mouth once d* VITAMIN D-3 ORAL Take by mouth. ALLOPURINOL 300 MG TABLET Take 1 tablet by mouth once d* Patient not taking: Reported on 12/04/2017 MELOXICAM 7.5 MG TABLET Take 1 tablet by mouth once d* Patient not taking: Reported on 12/04/2017 DICYCLOMINE 10 MG CAPSULE As needed Patient not taking: Reported on 12/04/2017 Problem List As Of Date 06/21/2018 Noted Resolved Foot pain [M79.673] INVALID FOR* Irritable bowel [K58.9] INVALID FOR* Gout [M10.9] INVALID FOR* Nephrolithiasis [N20.0] INVALID FOR* HTN (hypertension) [I10] INVALID FOR* Hyperlipidemia [E78.5] INVALID FOR* Hypothyroid [E03.9] INVALID FOR* Other instructions from your clinician: LIFESTYLE CHANGE A healthy lifestyle is the most important component of your overall treatment plan. Please give serious thought to the following areas and commit to making halfway changes. EAT A WHOLE FOOD, PLANT BASED DIET The nutrition your body gets is more important than the medi cine you take. What matters most is the overall way you eat. We encourage y ou to minimize the use of animal products (which include dairy and all meats except fatty fish) and use whole, unprocessed plant foods to provide your protein, vitamins and other nutrients. We have a lot of info rmation to share with you on this topic. This is not a diet. It is a way of life that you will keep with you. EXERCISE REGULARLY It is not important to spend hours in the gym, lifting weigh ts and perspiring heavily. A total of 2-3 hours per week of aerobic (causing you to be moderately short of breath) exercise is sufficient to improve your health. Talk to us before you begin a new exercise program, if you have heart disease or experience shortness of breath or chest juan n. REDUCE STRESS Chronic emotional and physical stress leads to disease. Ways of reducing stress include meditation, visualization, prayer, yoga and o ther forms of relaxation therapy. Consistency is the fuentes. Find a technique that works for you and do it every day. CULTIVATE RELATIONSHIPS Loneliness and isolation have a major negative impact on hea lth. Seek out others who can love, care for and nurture you. Avoid hurtful relationships. MAINTAIN IDEAL BODY WEIGHT The best way to do this is to do all the things above. Our b odies naturally find the right weight if we keep moving and feed o urselves the right food. If your BMI is greater than 25, we strongly jose mmend a referral to a weight management program. Please speak to us or your family physician about available programs. AVOID NICOTINE IN ALL FORMS This includes all tobacco products, whether chewed, smoked, vaped, or rubbed on the skin. Smoking cessation programs, which can ma ke use of tobacco substitutes, medications to suppress cravings and be havior management, are available. Please contact your family physic octavio about programs in your area. Medications Discontinued During This Encounter atorvastatin (LIPITOR) 10 mg tablet 90 t* 3 08/20/2012 06/21/20 Route: ORAL Sig: Take 1 tablet by mouth once daily. Patient not taking: Reported on 12/04/2017 Disc: Reason for discontinue is not on file. lisinopril-hydrochlorothiazide 10-12* 90 t* 3 08/20/20122017 Route: ORAL Sig: Take 1 tablet by mouth once daily. Disc: Reason for discontinue is not on file. Follow-up and Disposition History Recorded Encounter Status:Closed by LAWSON MADRIGAL MD on 06/21/18 cbc on 2018-06-21 Absolute nRBC <0.01 <0.01 Normal 06-21-2018 [facility] ([id number]) Comment: Performed By: #### CBC #### [facility] [address] [place], [place] [address] Erythrocyte distribution 13.2 11.5-15.0 % Normal 06-21 [facility] width (RBC) [Ratio] [facility] ([id number]) Comment: Performed By: #### CBC #### [facility] [address] [place], [place] [address] Hematocrit (Bld) [Volume 43.5 36.0-46.0 % Normal 06-21 [facility] ([id number]) Comment: Performed By: #### CBC #### [facility] [address] [place] [address] Hemoglobin (Bld) 14.4 11.5-15.5 g/dL Normal 06-21-2018 [facility] [Mass/Vol] [facility] ([id number]) Comment: Performed By: #### CBC #### [facility] [address] [place] [address] MCH (RBC) [Entitic mass] 33.0 26.0-34.0 pG Normal 06-21 [facility] ([id number]) Comment: Performed By: #### CBC #### [address] [address] MCHC (RBC) [Mass/Vol] 33.1 30.5-36.0 g/dL Normal 06-21-20 18 [facility] (77907) Comment: Performed By: #### CBC #### [address] [address] MCV (RBC) [Entitic vol] 99.8 80.0-100.0 fL Normal 06-21 [facility] ([id number]) Comment: Performed By: #### CBC #### [facility] [address] [place] [address] Platelet mean volume 12.3 9.0-12.7 fL Normal 8 [facility] (Bld) [Entitic vol] [facility] ([id number]) Comment: Performed By: #### CBC #### [facility] [address] [place] [address] Platelets (Bld) [#/Vol] 194 150-400 k/uL Normal 2017 [facility] ([id number]) Comment: Performed By: #### CBC #### [facility] [address] [place], [place] [id number] RBC (Bld) [#/Vol] 4.36 3.90-5.20 m/uL Normal 06-21-2018 [facility] (74075) Comment: Performed By: #### CBC #### [facility] [address] [place] [address] WBC (Bld) [#/Vol] 8.37 3.70-11.00 k/uL Normal 06-21-2018 [facility] ([id number]) Comment: Performed By: #### CBC #### [facility] [address] [place], [place] [address] basic metabolic panl on 2018-06-21 Anion gap [Moles/Vol] 12 mmol/L Normal 06-21-20 18 [facility] (07051) Calcium [Mass/Vol] 9.6 8.5-10.2 mg/dL Normal 06-21-2018 [facility] ([id number]) Chloride [Moles/Vol] 100 97-105 mmol/L Normal 8 [facility] ([id number]) CO2 [Moles/Vol] 23 22-30 mmol/L Normal 06-21-2018 [facility] ([id number]) Creatinine [Mass/Vol] 0.97 0.58-0.96 mg/dL High 06-21-20 18 [facility] (10322) eGFR- Amer. >60 Normal 06-21-2018 [facility] (59649) GFR/1.73 sq M predicted 56 . Normal 2017 [facility] among non-blacks MDRD [facility] ([id number]) (S/P/Bld) [Vol rate/Area] Comment: Result Comment: eGFR (Estima bharti GFR) Units of measure: mL/min/1.73 meters squared eGFR is derived from the ree xpressed MDRD Study equation using the following parameters: serum creatinine, age, gender and race. The creatinine assay has been calibrated to be traceable to IDMS. An eGFR <60 mL/min/1.73m2 fo r >3 months is consistent with chronic kidney disease. Refer to KDOQI guidelines for clinical interpretation. In patients with unstable re nal function, e.g. those with acute kidney injury, the eGFR may not accurately reflect actual GFR. Glucose [Mass/Vol] 314 74-99 mg/dL High 06-21-2018 [facility] ([id number]) Potassium [Moles/Vol] 3.9 3.7-5.1 mmol/L Normal 06-21-20 18 [facility] (38414) Sodium [Moles/Vol] 135 136-144 mmol/L Low 06-21-2018 [facility] (72907) Urea nitrogen [Mass/Vol] 20 7-21 mg/dL Normal 06-21 [facility] (91635) progress on 2017-11 PROGRESS HNO ID: [id number]: Lawson jang 12-04-2017 Marni Chan: (none)Author Type: General PhysicianType: Progress NotesFiled: Medical 12/04/2017 5:18 PMNote Text:[facility] Center HISTORYLBBBHTNHLDMPAF?ASHD?CHF?ADHERENCE TO (07307) GUIDELINESACE-I or ARB for HF with prior LVEF<40 (NQF 0081) - N/AASA or Plavix for ASHD (NQF 0067) - N/ABeta zara for ASHD with prior DE or prior LVEF<40 (NQF 0070) - N/ABeta zara for HF with prior LVEF<40 (NQF 0083) - N/AACE-I or ARB for ASHD with DM or prior LVEF<40 (NQF 0066) - N/AStatin therapy for ASHD or FHL or DM - metBMI documented and plan if >25 (NQF 0421) - lifestyle recommendation formTobacco use screening and referral (NQF 0028) - lifestyle recommendationformRecommendation for whole food, plant based diet - lifestyle recommendationformCLINICAL IMPRESSION/PLAN:Abbey Resendiz is doing well. Pressure Is Adequately Controlled. She'sTolerating Anticoagulation Well. Presumably, the Indication Is AtrialFibrillation, Although We Have No Documentation. We Will Again Attempt toGet Her Previous Records.There Is No Evidence of Progression of Her Bundle Branch Block.She's Had No Symptoms of Decompensated Heart Failure or Ischemia.She's Been Advised to Continue Her Current Medication in the Meantime.I Will See Her in 8 Months or As Needed.Written and verbal health teaching given to patient, patient verbalizesunderstanding and agrees with treatment plan.DIAGNOSIS FOR VISIT:Left bundle branch blockHypertensionHISTORY OF PRESENT ILLNESSAbbey Resendiz returns for follow-up of multiple historical cardiacissues.We have not received records on her prior cardiac workup.. She has hadminimal palpitations. She denies TIAs, amaurosis and claudication. Shedenies chest pain, orthopnea and edema.ALLERGIES:ALLERGIESAllergen Reactions- Colchicine GI UpsetCURRENT OUTPATIENT MEDICATIONS:ferrous sulfate (IRON) 325 mg (65 mg iron) tablet Take 325 mg by mouthdaily with breakfast.sertraline (ZOLOFT) 25 mg tablet Take 25 mg by mouth once daily.apixaban (ELIQUIS) 5 mg tab tab(s) Take 5 mg by mouth twice daily.loratadine 10 mg cap Take by mouth.FLAXSEED OIL (OMEGA 3 ORAL) Take by mouth.CALCIUM CARBONATE/VITAMIN D3 (VITAMIN D-3 ORAL) Take by mouth.CYANOCOBALAMIN, VITAMIN B-12, (VITAMIN B-12 ORAL) Take by mouth.lisinopril-hydrochlorothiazide 10-12.5 mg per tablet Take 1 tablet bymouth once daily.atorvastatin (LIPITOR) 10 mg tablet Take 1 tablet by mouth once daily.levothyroxine (SYNTHROID) 50 mcg tablet Take 1 tablet by mouth once daily.ERGOCALCIFEROL, VITAMIN D2, (VITAMIN D2 ORAL) Take by mouth.melatonin 3 mg Take 3 mg by mouth daily at bedtime.allopurinol 300 mg tablet Take 1 tablet by mouth once daily.methylPREDNISolone (MEDROL, MARS,) 4 mg tablet As directedmeloxicam (MOBIC) 7.5 mg tablet Take 1 tablet by mouth once daily.dicyclomine (BENTYL) 10 mg capsule As neededPHYSICAL EXAMINATION:VITAL SIGNS: BP 138/82 Pulse 62 Wt 171 lb 11.2 oz (77.9kg)Chest: Clear to percussion and auscultation. Trachea is midline. Airentry is equal. Cardiac: Regular rhythm. S1 and S2 are normal. PMI isnondisplaced. There is a 2/6 systolic ejection. Carotids are briskwithout bruits. JVP is less than 10 cm. Abdomen: Soft and nontender.Obesity limits the examination. There are no pulsatile masses or bruits.No liver enlargement. Bowel sounds are active. Extremities: Trace edema. Pulses are intact and symmetrical.Echocardiogram was performed and shows normal LV function. There is nosignificant valvular disease.[facility] She was advised toincrease her fluid intake. Follow-up basic profile is pending.Electronically Signed:Sera Parrish 2017 4:29 PMCC: Jony Wills MD cnov on 2017-12-04 CNOV Office Visit Normal 12-04-2017 Marni (AGCARDWST) ABBEY RESENDIZ ([id number]) 1945 F Date Time Provider Department12/04/17 3:00 PM LAWSON MADRIGAL [facility] During your visit today, we recorded the following information about you: Pulse Blood pressure Weight Cente r 62/minute 138/82 77.9 kgKenn freddy Madrigal MD 12/04/2017 5:18 PM SignedPERTINENT CARDIAC ([id number]) HISTORYLBBBHTNHLDMPAF?ASHD?C HF?ADHERENCE TO GUIDELINESACE-I or ARB for HF with prior LVEF<40 (NQF 0081) - N/AASA or Plavix for ASHD (N QF 0067) - N/ABeta zara for ASHD with prior DE or prior LVEF<40 (NQF 0070) - N/ABeta zara for HF wit h prior LVEF<40 (NQF 0083) - N/AACE-I or ARB for ASHD with DM or prior LVEF<40 (NQF 0066) - N/AStatin thera py for ASHD or FHL or DM - metBMI documented and plan if >25 (NQF 0421) - lifestyle recommendation for mTobacco use screening and referral (NQ 0028) - lifestyle recommendation formRecommendation for whole food, plant based diet - lifestyle recommendation formCLINICAL IMPRESSION/PLAN:Abbey oliveira is doing well. Pressure Is Adequately Controlled. She'sTolerating Anticoagulation Well. Presum ably, the Indication Is AtrialFibrillation, Although We Have No Documentation. We Will Again Attempt to Get Her Previous Records.There Is No Evidence of Progression of Her Bundle Branch Block.She's Had No Symptoms of Decompensated Heart Failure or Ischemia.She's Been Advised to Continue Her Current Medication in the Tn antime.I Will See Her in 8 Months or As Needed.Written and verbal health teaching given to patient, ilana colby verbalizesunderstanding and agrees with treatment plan.DIAGNOSIS FOR VISIT:Left bundle branch blo ckHypertensionHISTORY OF PRESENT ILLNESSAbbey Resendiz returns for follow-up of multiple historical cardi ac issues.We have not received records on her prior cardiac workup.. She has had minimalpalpitations. She denies TIAs, amaurosis and claudication. She denies chestpain, orthopnea and edema.ALLERGIES:ALLERGIESAll ergen Reactions- Colchicine GI UpsetCURRENT OUTPATIENT MEDICATIONS:ferrous sulfate (IRON) 325 mg (65 mg iron) tablet Take 325 mg by mouth dailywith breakfast.sertraline (ZOLOFT) 25 mg tablet Take 25 mg by mout h once daily.apixaban (ELIQUIS) 5 mg tab tab(s) Take 5 mg by mouth twice daily.loratadine 10 mg cap T ebony by mouth.FLAXSEED OIL (OMEGA 3 ORAL) Take by mouth.CALCIUM CARBONATE/VITAMIN D3 (VITAMI N D-3 ORAL) Take by mouth.CYANOCOBALAMIN, VITAMIN B-12, (VITAMIN B-12 ORAL) Take by mouth.lisinopril-hyd rochlorothiazide 10-12.5 mg per tablet Take 1 tablet by mouthonce daily.atorvastatin (LIPITOR) 10 mg tablet Take 1 tablet by mouth once daily.levothyroxine (SYNTHROID) 50 mcg tablet Take 1 tablet by mouth once daily.ERGOCALCIFEROL, VITAMIN D2, (VITAMIN D2 ORAL) Take by mouth.melatonin 3 mg Take 3 mg by mouth daily at bedtime.allopurinol 300 mg tablet Take 1 tablet by mouth once daily.methylPREDNISolon e (MEDROL, MARS,) 4 mg tablet As directedmeloxicam (MOBIC) 7.5 mg tablet Take 1 tablet by mouth once daily.d icyclomine (BENTYL) 10 mg capsule As neededPHYSICAL EXAMINATION:VITAL SIGNS: BP 138/82 Pulse 62 Wt 17 1 lb 11.2 oz (77.9kg)Chest: Clear to percussion and auscultation. Trachea is midline. Air entry isequal. Cardiac: Regular rhythm. S1 and S2 are normal. PMI is nondisplaced.There is a 2/6 systolic ejection. Carot ids are brisk without bruits. JVP isless than 10 cm. Abdomen: Soft and nontender. Obesity limits th e examination.There are no pulsatile masses or bruits. No liver enlargement. Bowel soundsare active. Extr emities: Trace edema. Pulses are intact and symmetrical.Echocardiogram was performed and shows normal L V function. There is nosignificant valvular disease.Laboratory studies were performed at the [facility]. She was advised toincrease her fluid intake. Follow-up basic profile is pending.Electronically Damari d:Bob Parrish2017 4:29 PMCC: Clayton Sadler MD 12/04/2017 4:33 PM SignedLIFESTYLE CHANGEA healthy lifestyle is the most important component of your overall treatmentplan. Please give serious thought to the following areas and commit to makinglong term changes.EAT A WHOLE TAMI D, PLANT BASED DIETThe nutrition your body gets is more important than the medicine you take.What matte rs most is the overall way you eat. We encourage you to minimize theuse of animal products (which inclu de dairy and all meats except fatty fish)and use whole, unprocessed plant foods to provide your protei n, vitamins andother nutrients. We have a lot of information to share with you on this topic.This is not a diet. It is a way of life that you will keep with you.EXERCISE REGULARLYIt is not important to spend ho urs in the gym, lifting weights and perspiringheavily. A total of 2-3 hours per week of aerobic (causing you to bemoderately short of breath) exercise is sufficient to improve your health.Talk to us before you begin a new exercise program, if you have heart diseaseor experience shortness of breath or chest pain.REDUCE STRESSChronic emotional and physical stress leads to disease. Ways of reducingstress inclu de meditation, visualization, prayer, yoga and other forms ofrelaxation therapy. Consistency is the fuentes. Find a technique that works foryou and do it every day.CULTIVATE RELATIONSHIPSLoneliness and isolation have a major negative impact on health. Seek outothers who can love, care for and nurture you. Av oid hurtful relationships.MAINTAIN IDEAL BODY WEIGHTThe best way to do this is to do all the things above. Our bodies naturallyfind the right weight if we keep moving and feed ourselves the right food. Ifyour BMI i s greater than 25, we strongly recommend a referral to a weightmanagement program. Please speak to us or your family physician aboutavailable programs.AVOID NICOTINE IN ALL FORMSThis includes all tobac co products, whether chewed, smoked, vaped, or rubbed onthe skin. Smoking cessation programs, which ca n make use of tobaccosubstitutes, medications to suppress cravings and behavior management, areavai labbarb. Please contact your family physician about programs in your area.Referring Provider: LAWSON POPE [[id number]]Allergies As of Date: 12/04/2017 Noted Allergy ReactionCOLCHICINE 2 8 - GI UpsetDate Reviewed: 12/04/2017Reviewed by: Delores (Rn) Yudelka - Fully AssessedReason for Vis it: Established Patient [175] Cmt: 6 month follow- up LBBB/ASHDReason For Visit History RecordedPrimary Visi t Diagnosis:LBBB (left bundle branch block) [I44.7] Other Visit Diagnosis:Hypertension, esse ntial [I10]Prescriptions as of 12/04/2017 Sig: ATORVASTATIN 40 MG TABLET Take 40 mg by mouth once giles* NO VOLIN 70/30 SUBCUTANEOUS Inject 27 Units subcutaneousl* FERROUS SULFATE 325 MG (65 MG* Take 325 mg by mouth daily wi* SERTRALINE 25 MG TABLET Take 25 mg by mouth once giles* APIXABAN 5 MG TABLET Take 5 mg by mouth twice giles* LORATADINE 10 MG CAPSULE Take by mouth. OMEGA 3 ORAL Take by mouth. VITAMIN D2 ORAL Take 1.25 mg by mouth twice d* VITAMIN D-3 ORAL Take by mouth. VITAMIN B-12 ORAL Take by mouth. LISINOPRIL 10 MG-HYDROCHLOROT* Take 1 tablet by mouth once d* LEVOTHYROXINE 50 MCG TABLET Take 1 tablet by mouth once d* MELATONIN 3 MG TABLET Take 3 mg by mouth daily at b* ALLOPURINOL 300 MG TABLET Take 1 tablet by mout h once d* Patient not taking: Reported on 12/04/2017 METHYLPREDNISOLONE 4 MG TABLE* As directed MELOXICAM 7.5 MG TABLET Take 1 tablet by mouth once d* Patient not taking: Reported on 12/04/2017 DICYCLOMINE 10 MG CAPSULE As needed Patient not taking: Reported on 12/04/2017 ATORVASTATIN 10 MG TABLET Take 1 tablet by mout h once d* Patient not taking: Reported on 12/04/2017Problem List As Of Date 12/04/2017 Noted Resolved Fo ot pain [M79.673] INVALID FOR* Irritable bowel [K58.9] INVALID FOR* Gout [M10.9] INVALID FOR* Nephrol ithiasis [N20.0] INVALID FOR* HTN (hypertension) [I10] INVALID FOR* Hyperlipidemia [E78.5] INVAL ID FOR* Hypothyroid [E03.9] INVALID FOR* Other instructions from your clinician: LIFESTYLE CHANGE A healthy lifestyle is the most important component of your overall treatment plan. Please give serious th ought to the following areas and commit to making lobsterman changes. EAT A WHOLE FOOD, PLANT BASED DIET The nutrition your body gets is more important than the medicine you take. What matters most is the ove rall way you eat. We encourage you to minimize the use of animal products (which include dairy and all meats except fatty fish) and use whole, unprocessed plant foods to provide your protein, vitamins and o ther nutrients. We have a lot of information to share with you on this topic. This is not a diet. It is a way of life that you will keep with you. EXERCISE REGULARLY It is not important to spend hours in the gym, lifting weights and perspiring heavily. A total of 2-3 hours per week of aerobic (causing you to b e moderately short of breath) exercise is sufficient to improve your health. Talk to us before you begin a new exercise program, if you have heart disease or experience shortness of breath or chest pain. REDUCE STRESS Chronic emotional and physical stress leads to disease. Ways of reducing stress include medi tation, visualization, prayer, yoga and other forms of relaxation therapy. Consistency is the fuentes. Find a technique that works for you and do it every day. CULTIVATE RELATIONSHIPS Loneliness and isolation hav e a major negative impact on health. Seek out others who can love, care for and nurture you. Avoid hurtf ul relationships. MAINTAIN IDEAL BODY WEIGHT The best way to do this is to do all the things above. Our shabbir dies naturally find the right weight if we keep moving and feed ourselves the right food. If your BMI is g reater than 25, we strongly recommend a referral to a weight management program. Please speak to us or your family physician about available programs. AVOID NICOTINE IN ALL FORMS This includes all tobacco pr oducts, whether chewed, smoked, vaped, or rubbed on the skin. Smoking cessation programs, which ca n make use of tobacco substitutes, medications to suppress cravings and behavior management, are taylor ilable. Please contact your family physician about programs in your area.Follow-up and Dispositi on History RecordedEncounter Number: [id number] Status:Closed by LAWSON MADRIGAL MD on 12/04/17 progress on 2017-07 PROGRESS HNO ID: [id number]: Lawson jang 08-14-2017 Marni Chan: (none)Author Type: General PhysicianType: Progress NotesFiled: Medical 08/14/2017 5:58 PMNote Text:PERTINENT CARDIAC Center HISTORYLBBBHTNHLDMPAF?ASHD?CHF?ADHERENCE TO ([id number]) GUIDELINESACE-I or ARB for HF with prior LVEF<40 (NQF 0081) - N/AASA or Plavix for ASHD (NQF 0067) - N/ABeta zara for ASHD with prior DE or prior LVEF<40 (NQF 0070) - N/ABeta zara for HF with prior LVEF<40 (NQF 0083) - N/AACE-I or ARB for ASHD with DM or prior LVEF<40 (NQF 0066) - N/AStatin therapy for ASHD or FHL or DM - metBMI documented and plan if >25 (NQF 0421) - lifestyle recommendation formTobacco use screening and referral (NQ 0028) - lifestyle recommendationformRecommendation for whole food, plant based diet - lifestyle recommendationformCLINICAL IMPRESSION/PLAN:Abbey Resendiz has valvular heart disease and left bundle branch block.There is no evidence of decompensated heart failure. We will attempt toget records of her prior evaluation and the reason for consultation.Meanwhile, she has been advised to continue her current medication. She kierra anticoagulation and the diagnosis of atrial fibrillation seems tenable.Echocardiogram will be done to assess LV function. We will obtain TSH,magnesium, basic profile and CBC.She will be contacted with results of the echocardiogram and furtherplans.Copy of this [facility] to [facility].Written and verbal health teaching given to patient, patient verbalizesunderstanding and agrees with treatment plan.This note was generated using Artaic voice recognition system, and theremay be some incorrect words, spellings, and punctuation that were notnoted in checking the note before saving.DIAGNOSIS FOR VISIT:CardiomegalyHISTORY OF PRESENT ILLNESSAbbey Resendiz is a 71-year-old woman who was seen in the office todayat the request of a nurse practitioner at [facility], who reports that she has cardiomegaly. No assessment or supportingdocumentation comes with her to the office visit today.For her part, Ms. Resendiz has no cardiac complaints other than I feellousy. She denies chest discomfort. She has noted a small amount ofedema. She has had shortness of breath with exercise. She deniesorthopnea. She's had no TIAs. She denies amaurosis, claudication,palpitations and syncope.She states that she has no known previous cardiac history. However limitedrecords from the assisted living facility suggest that she has previoushistory of diabetes and hyperlipidemia. There is also a questionablehistory of coronary disease, atrial fibrillation and heart failure .ALLERGIES:ALLERGIESAllergen Reactions- Colchicine GI UpsetCURRENT OUTPATIENT MEDICATIONS:ferrous sulfate (IRON) 325 mg (65 mg iron) tablet Take 325 mg by mouthdaily with breakfast.sertraline (ZOLOFT) 25 mg tablet Take 25 mg by mouth once daily.apixaban (ELIQUIS) 5 mg tab tab(s) Take 5 mg by mouth twice daily.loratadine 10 mg cap Take by mouth.FLAXSEED OIL (OMEGA 3 ORAL) Take by mouth.ERGOCALCIFEROL, VITAMIN D2, (VITAMIN D2 ORAL) Take by mouth.CALCIUM CARBONATE/VITAMIN D3 (VITAMIN D-3 ORAL) Take by mouth.CYANOCOBALAMIN, VITAMIN B-12, (VITAMIN B-12 ORAL) Take by mouth.melatonin 3 mg Take 3 mg by mouth daily at bedtime.atorvastatin (LIPITOR) 10 mg tablet Take 1 tablet by mouth once daily.levothyroxine (SYNTHROID) 50 mcg tablet Take 1 tablet by mouth once daily.allopurinol 300 mg tablet Take 1 tablet by mouth once daily.methylPREDNISolone (MEDROL, MARS,) 4 mg tablet As directedmeloxicam (MOBIC) 7.5 mg tablet Take 1 tablet by mouth once daily.lisinopril-hydrochlorothiazide 10-12.5 mg per tablet Take 1 tablet bymouth once daily.dicyclomine (BENTYL) 10 mg capsule As neededNo past medical history on file.PAST SURGICAL HISTORYProcedure Laterality Date- HYSTERECTOMY HX 1994FAMILY HISTORYProblem Relation Age of Onset- Osteoporosis Mother- Hypertension Mother- Hypertension FatherSocial History Marital status: Single Spouse name: Years of education: Number of children:Social History Main Topics Smoking status: Never Smoker Smokeless status: Never Used Alcohol use: No Drug use: No Sexual activity: Not CurrentlyREVIEW OF SYSTEMS: General: No chills, fever, weight loss, night sweats. SHEENT: No change in vision or auditory acuity. Respiratory: Noproductive cough. Cardiac: As noted above. GI: No melena.History ofGERD. : No dysuria. History of kidney stones. Musculoskeletal: Nomyalgias. Neurologic: No strokes. Psychiatric: Chronic depression.Endocrine: History of thyroid disease and diabetes. Hematologic: Chronicanemia.PHYSICAL EXAMINATION: S/he is alert and in no distressVITAL SIGNS: BP 114/72 Pulse 80 Ht 5' 0 (1.52m) Wt 164 lb 8 oz(74.6kg) BMI 32.13 kg/(m2).SHEENT: Skin is warm and dry. Pupils are round and reactive. Retinalvessels are grossly unremarkable. No xanthelasmas appreciated. Pharynxis benign. There is no oral cyanosis. Neck: supple. No adenopathy orthyroid enlargement. Chest: Clear to percussion and auscultation.Trachea is midline. Air entry is equal. There is no chest walltenderness. Cardiac: Regular rhythm. S2 is paradoxically split. PMI isnondisplaced. There is a 2/6 systolic ejection murmur. No click isheard. Carotids are brisk without bruits. JVP is less than 10 cm.Abdomen: Soft and nontender. Obesity precludes adequate examination Thereare no pulsatile masses or bruits. No liver enlargement. Bowel soundsare active. : Deferred. Extremities: Trace edema. Pulses are intactand symmetrical. No clubbing or cyanosis. No femoral bruits.Neurologic: Grossly normal motor and sensory. S/he is alert. She isoriented to day of the week and year but states that she lives in [facility] cannot give me her address. She knows her date of ..Musculoskeletal: No joint deformities.EKG shows sinus rhythm with left bundle branch block. No prior EKGs areavailable.No recent labs are available. Prior LDL was 93 and renal function was lownormal.Electronically Signed:Lawson Madrigal MDAugust 14, 2017 5:48 [facility] Jony Wills MD cnov on 2017-08-14 CNOV Office Visit Normal 08-14-2017 Marni (AGCARDWST) ABBEY RESENDIZ ([id number]) 1945 F Date Time Provider Department08/14/17 1:00 PM LAWSON MADRIGAL [facility] During your visit today, we recorded the following information about you: Pulse Blood pressure Weight Cente r Height 80/minute 114/72 74.6 kg 1.524 Feliciano Madrigal MD 08/14/2017 5:58 PM SignedPERTINENT CARDIAC () HISTORYLBBBHTNHLDMPAF?ASHD?C HF?ADHERENCE TO GUIDELINESACE-I or ARB for HF with prior LVEFANDlt;40 (NQF 0081) - N/AASA or Plavix for ASHD (NQF 0067) - N/ABeta zara for ASHD with prior DE or prior LVEFANDlt;40 (NQF 0070) - N/ ABeta zara for HF with prior LVEFANDlt;40 (NQF 0083) - N/AACE-I or ARB for ASHD with DM or prior LVEFAN Theresa;40 (NQF 0066) - N/AStatin therapy for ASHD or FHL or DM - metBMI documented and plan if ANDgt ;25 (NQF 0421) - lifestyle recommendation formTobacco use screening and referral (NQF 0028) - lifest yle recommendation formRecommendation for whole food, plant based diet - lifestyle recommendation for mCLINICAL IMPRESSION/PLAN:Abbey Resendiz has valvular heart disease and left bundle branch block. Thereis no evidence of decompensated heart failure. We will attempt to get recordsof her prior evaluation and the reason for consultation. Meanwhile, she hasbeen advised to continue her current medication. She is o n anticoagulation andthe diagnosis of atrial fibrillation seems tenable.Echocardiogram will be done to assess LV function. We will obtain TSH,magnesium, basic profile and CBC.She will be contacted wi th results of the echocardiogram and further plans.Copy of this note will be sent to [facility].Wri tten and verbal health teaching given to patient, patient verbalizesunderstanding and agrees with treatment plan.This note was generated using Artaic voice recognition system, and ther e may besome incorrect words, spellings, and punctuation that were not noted inchecking the note before s franci.DIAGNOSIS FOR VISIT:CardiomegalyHISTORY OF PRESENT ILLNESSAbbey Resendiz is a 71-year-old woma n who [facility] assisted dee woodward, whoreports that she has cardiomegaly. No assessment or supporting documentationcomes with her to the office visit today.For her part, Ms. Resendiz has no cardiac complaints other than ANDquot;I feellou syANDquot;. She denies chest discomfort. She has noted a small amount ofedema. She has had shortness of jaiden ath with exercise. She denies orthopnea.She's had no TIAs. She denies amaurosis, claudication, pal pitations andsyncope.She states that she has no known previous cardiac history. However limitedreco rds from the assisted living facility suggest that she has previous historyof diabetes and hyperlipidemia. There is also a questionable history ofcoronary disease, atrial fibrillation and heart failure .ALLERGIES :ALLERGIESAllergen Reactions- Colchicine GI UpsetCURRENT OUTPATIENT MEDICATIONS:ferrous sulfate (IRON) 325 mg (65 mg iron) tablet Take 325 mg by mouth dailywith breakfast.sertraline (ZOLOFT ) 25 mg tablet Take 25 mg by mouth once daily.apixaban (ELIQUIS) 5 mg tab tab(s) Take 5 mg by mouth tw ice daily.loratadine 10 mg cap Take by mouth.FLAXSEED OIL (OMEGA 3 ORAL) Take by mouth.ERGOCALCIFEROL, VIT SALINAS D2, (VITAMIN D2 ORAL) Take by mouth.CALCIUM CARBONATE/VITAMIN D3 (VITAMIN D-3 ORAL) Take by mouth.CYAN OCOBALAMIN, VITAMIN B-12, (VITAMIN B-12 ORAL) Take by mouth.melatonin 3 mg Take 3 mg by mouth daily at bedtime.atorvastatin (LIPITOR) 10 mg tablet Take 1 tablet by mouth once daily.levothyroxine (SYNTHRO ID) 50 mcg tablet Take 1 tablet by mouth once daily.allopurinol 300 mg tablet Take 1 tablet by mouth once daily.methylPREDNISolone (MEDROL, MARS,) 4 mg tablet As directedmeloxicam (MOBIC) 7.5 mg tablet Take 1 tablet by mouth once daily.lisinopril- hydrochlorothiazide 10-12.5 mg per tablet Take 1 tablet by mout honce daily.dicyclomine (BENTYL) 10 mg capsule As neededNo past medical history on file.PAST SURGICA L HISTORYProcedure Laterality Date- HYSTERECTOMY HX 1994FAMILY HISTORYProblem Relation Age of Onset- Osteo porosis Mother- Hypertension Mother- Hypertension FatherSocial History Marital status: Single Spouse name: Years of education: Number of children:Social History Main Topics Smoking status: Never Smoker Smokele ss status: Never Used Alcohol use: No Drug use: No Sexual activity: Not CurrentlyREVIEW OF SYSTEMS: General: No chills, fever, weight loss, night sweats.SHEENT: No change in vision or auditory acuity. R espiratory: No productivecough. Cardiac: As noted above. GI: No melena.History of GERD. : Nodysuria. Hist ory of kidney stones. Musculoskeletal: No myalgias. Neurologic:No strokes. Psychiatric: Chronic depress ion. Endocrine: History of thyroiddisease and diabetes. Hematologic: Chronic anemia.PHYSICAL EXAMINATION: S/he is alert and in no distressVITAL SIGNS: BP 114/72 Pulse 80 Ht 5' 0ANDquot; (1.52m) Wt 164 l b 8 oz(74.6kg) BMI 32.13 kg/(m2).SHEENT: Skin is warm and dry. Pupils are round and reactive. Retinal vesselsare grossly unremarkable. No xanthelasmas appreciated. Pharynx is benign.There is no oral cyan osis. Neck: supple. No adenopathy or thyroidenlargement. Chest: Clear to percussion and auscultation. Trachea is midline. Air entry is equal. There is no chest wall tenderness. Cardiac: Regularrhythm. S2 i s paradoxically split. PMI is nondisplaced. There is a 2/6systolic ejection murmur. No click is heard. C arotids are brisk withoutbruits. JVP is less than 10 cm. Abdomen: Soft and nontender. Obesityprecludes adequate examination There are no pulsatile masses or bruits. Noliver enlargement. Bowel sounds ar e active. : Deferred. Extremities: Traceedema. Pulses are intact and symmetrical. No clubbing or cyanosis. Nofemoral bruits. Neurologic: Grossly normal motor and sensory. S/he is alert.She is oriented to day of the week and year but states that she lives in [facility] cannot give me her address. She knows her d ate of .. Musculoskeletal:No joint deformities.EKG shows sinus rhythm with left bundle branch bloc k. No prior EKGs areavailable.No recent labs are available. Prior LDL was 93 and renal function was lowno rmal.Electronically Signed:Lawson Madrigal MDAugust 14, 2017 5:48 PMCC: Clayton Sadler MD 08/14/2017 5:57 PM SignedLIFESTYLE CHANGEA healthy lifestyle is the most important component of your overall treatmentplan. Please give serious thought to the following areas and commit to makinglo ng term changes.EAT A WHOLE FOOD, PLANT BASED DIETThe nutrition your body gets is more important than the m edicine you take.What matters most is the overall way you eat. We encourage you to minimize theuse of an imal products (which include dairy and all meats except fatty fish)and use whole, unprocessed plant tami ds to provide your protein, vitamins andother nutrients. We have a lot of information to share with kiarra mcclendon on this topic. We also hold Shared Medical Appointments, where you can come visit with in the company of other patients and spend over an hour talking aboutthe challenges of changing the way you eat. This is not a ANDquot;dietANDquot;.It is a way of life that you will keep with you.EXERCISE REGULARLYI t is not important to spend hours in the gym, lifting weights and perspiringheavily. A total o f 2-3 hours per week of aerobic (causing you to bemoderately short of breath) exercise is sufficient to im prove your health.Talk to us before you begin a new exercise program, if you have heart diseaseor experie nce shortness of breath or chest pain.REDUCE STRESSChronic emotional and physical stress leads to dis ease. Ways of reducingstress include meditation, visualization, prayer, yoga and other forms ofrelaxation therapy. Consistency is the fuentes. Find a technique that works foryou and do it every day.CULTIVATE RELATION SHIPSLoneliness and isolation have a major negative impact on health. Seek outothers who can love, care for and nurture you. Avoid hurtful relationships.MAINTAIN IDEAL BODY WEIGHTThe best way to do thi s is to do all the things above. Our bodies naturallyfind the right weight if we keep moving and feed ours elves the right food. Ifyour BMI is greater than 25, we strongly recommend a referral to a weightmanageme nt program. Please speak to us or your family physician aboutavailable programs.AVOID NICOTINE IN A LL FORMSThis includes all tobacco products, whether chewed, smoked, vaped, or rubbed onthe skin. Smoking c essation programs, which can make use of tobaccosubstitutes, medications to suppress cravings and behavi or management, areavailable. Please contact your family physician about programs in your area.Josafat reardon RN, RN 2017 8:11 AM SignedCopy of OV note mailed to Dr. Wills's office.Referring Provider: JONY PACHECO [[id number]]Allergies As of Date: 08/14/2017 Noted Allergy ReactionCOLCHICINE 2 8 - GI UpsetDate Reviewed: 08/14/2017Reviewed by: Josafat (Rn) MIKAYLA Ames - Fully AssessedReason for Vis it: New Patient [172]Primary Visit Diagnosis:LBBB (left bundle branch block) [I44.7]Order(s):ECG B/O W IN TERP (MED OFFICE) [ECG06] Order #: [id number] ECHO [251118] Order #: [id number]: 1 FUTURE BASI C METABOLIC PNL [SQBMP] Order #: [id number] FUTURE CBC [SQCBC] Order #: [id number] FUTURE TSH BLD [S QTSH] Order #: [id number] FUTURE MAGNESIUM BLD [SQMG1] Order #: [id number] FUTUREPrescriptions as of Sig: FERROUS SULFATE 325 MG (65 MG* Take 325 mg by mouth daily wi* SERTRALINE 25 MG TABLET Take 25 mg by mouth once giles* APIXABAN 5 MG TABLET Take 5 mg by mouth twice giles* LORATADINE 10 MG CAPSULE Raúl e by mouth. OMEGA 3 ORAL Take by mouth. VITAMIN D2 ORAL Take by mouth. VITAMIN D-3 ORAL Take by mouth. LENA MIN B-12 ORAL Take by mouth. MELATONIN 3 MG TABLET Take 3 mg by mouth daily at b* ATORVASTATIN 10 MG TABLET Take 1 tablet by mouth once d* LEVOTHYROXINE 50 MCG TABLET Take 1 tablet by mouth once d* ALLOPURINOL 30 0 MG TABLET Take 1 tablet by mouth once d* METHYLPREDNISOLONE 4 MG TABLE* As directed MELOXICAM 7.5 MG TA BLET Take 1 tablet by mouth once d* LISINOPRIL 10 MG-HYDROCHLOROT* Take 1 tablet by mouth once d* DICY CLOMINE 10 MG CAPSULE As neededProblem List As Of Date 08/14/2017 Noted Resolved Foot pain [M79.673] INVALID FOR* Irritable bowel [K58.9] INVALID FOR* Gout [M10.9] INVALID FOR* Nephrolithiasis [N20.0] INVA LID FOR* HTN (hypertension) [I10] INVALID FOR* Hyperlipidemia [E78.5] INVALID FOR* Hypothyroid [E03.9] INV ALID FOR* Other instructions from your clinician: LIFESTYLE CHANGE A healthy lifestyle is the most import ant component of your overall treatment plan. Please give serious thought to the following areas and comm it to making halfway changes. EAT A WHOLE FOOD, PLANT BASED DIET The nutrition your body gets is more important than the medicine you take. What matters most is the overall way you eat. We encourage yo u to minimize the use of animal products (which include dairy and all meats except fatty fish) and use w hole, unprocessed plant foods to provide your protein, vitamins and other nutrients. We have a lot of information to share with you on this topic. We also hold Shared Medical Appointments, where you can come visit with Dr. Madrigal in the company of other patients and spend over an hour talking about the chall enges of changing the way you eat. This is not a diet. It is a way of life that you will keep with you. EXERCISE REGULARLY It is not important to spend hours in the gym, lifting weights and perspiring heavi ly. A total of 2-3 hours per week of aerobic (causing you to be moderately short of breath) exercise is sufficient to improve your health. Talk to us before you begin a new exercise program, if you have heart d isease or experience shortness of breath or chest pain. REDUCE STRESS Chronic emotional and physical stres s leads to disease. Ways of reducing stress include meditation, visualization, prayer, yoga and other forms of relaxation therapy. Consistency is the fuentes. Find a technique that works for you and do it every day. CULTIVATE RELATIONSHIPS Loneliness and isolation have a major negative impact on health. Seek out others w ho can love, care for and nurture you. Avoid hurtful relationships. MAINTAIN IDEAL BODY WEIGHT The best w ay to do this is to do all the things above. Our bodies naturally find the right weight if we keep movi ng and feed ourselves the right food. If your BMI is greater than 25, we strongly recommend a referra l to a weight management program. Please speak to us or your family physician about available programs. AV OID NICOTINE IN ALL FORMS This includes all tobacco products, whether chewed, smoked, vaped, or rubbed on the skin. Smoking cessation programs, which can make use of tobacco substitutes, medications to suppress cravings and behavior management, are available. Please contact your family physician about progr ams in your area.Visit Notes:>> Josafat (Rn) MIKAYLA Ames ThuAug 17, 2017 8:11 AM Status: SignedCopy of OV not e mailed to Dr. Wills's office.Classic SmartForms filed during this visit:Extended VitalsEncount er Number: [id number] Status:Closed by LAWSON MADRIGAL MD on 08/14/17 glucose,bedside on 2017-02-07 Glucose mass conc 107 70-100 mg/dL High 02-07-2017 [facility] ([id number]) Comment: Result Comment: Test perform ed by glucose meter. Results may be 10%-15% lowerthan serum/plasma value s. (CLIA ID [id number]) Performed By: #### HEMDF, PT /AP, CMP3, TSH4, B12, BNP3, RPR ####[address] [address] echo complete w/wo contrast on 2017-02-07 Echo Patient Name: ABBEY RESENDIZ [id number] Normal 02-07-2017 [facility] Complete Ultrasound Exam Date/T elyssa 02/07/2017 09:59:54 EDT Exam Echo Complete Health w/wo w/wo Contrast Ordering Physician MD WHYTE LORI Accession Number System Contrast [id number] Reason For Exam pulmonary embolus Report TRANSTHORACIC ([id number]) ECHOCARDIOGRAM PATIENT: Abbey Resendiz STUDY DATE: 2016 : 1945 [id number] AGE: 71 HT/WT: 152.4 cm (60 66.7 kg (146.7 in) lb) GENDER: F BP: 1 LOCATION: [facility] PATIENT Outpatient [facility] STATUS: *ORDERING PHYSICIAN: * Kandice Whyte *READING PHYSICIAN: * Arthur hendrickson MD *SECRETARY OFFICE CLERK: * Edgar Antunez --- INDICATIONS: Pulmonary embolism. --- CONCLUSIONS SUMMARY: 1. Left ventricle: Systolic functio n is normal by visual assessment. The estimated ejection fraction is 63%. T here are no regional wall motion abnormalities. 2. Right ventricle: The cavity size is mildly dilated in visual assessment. Systolic function is no rmal by visual assessment. Right ventricular systolic pressure is within the normal range. 3. Right atrium: The atrium is normal in size. 4. Mitral geovanny ve: Mildly to moderately calcified, moderately thickened annulus. Mildly t hickened leaflets. There is moderate systolic anterior motion o f the anterior leaflet and chordal structures. There is mild-moderate, 1- 2+ regurgitation directed eccentrically and posteriorly. 5. Aortic valve: Well visuali zed. Mildly calcified annulus. Trileaflet; normal thickness, noncalcifie d leaflets. 6. Pulmonary arteries: Systolic pressure is in the range of 24 mm Hg to 27 mm Hg. 7. Main pulmonary artery: Normal. 8. Inferior vena cava: The vessel is patent and small, may be consistent with low central venous pressure. Mean RA pressure 0-3 mmHg. --- STUDY DATA: Complete transthoracic echocardiogram. Yudith dure: Image quality was good. M-mode, complete 2D, complete spectral D oppler, and color flow Doppler images were acquired and archived for per manent storage and are available for subsequent review. Study status: Routine. Radha ent status: Outpatient. --- FINDINGS LEFT VENTRICLE: Well visualized. The cavity siz e is normal. Wall thickness is borderline or mildly increased. Systolic f unction is normal by visual assessment. The estimated ejection fraction is 63%. There are no regional wall motion abnormalities. Unable to assess LV diastolic function due to indeterminate technical data The ratio of early ventricular filling to atrial contraction velocities is within the alex l range. The tissue Doppler parameters are abnormal. E/e' average: 18.7 RIGHT VENTRICLE: Well visualized. The cavity size is mildly dilated in visual assessment. Systolic function is normal by visual assessment. Righ t ventricular systolic pressure is within the normal range. VENTRICULAR SEPTUM: The re is no evidence of a ventricular septal defect. LEFT ATRIUM: Well v isualized. The atrium is normal in size. RIGHT ATRIUM: Well visualized. The atrium is normal in size. ATRIAL SEPTUM: Well visualized. Color Dopple r shows no evidence of shunt. MITRAL VALVE: Well visualized. Mildly to moderately calcified, moderately thickened annulus. Mildly thicke ashlyn leaflets. There is moderate systolic anterior motion of the anterior leaflet an d chordal structures. Doppler: There is no evidence for stenosis. Ther e is mild-moderate, 1-2+ regurgitation directed eccentrically and posteriorly. Peak gradient (D): 4.25 mm Hg. AORTIC VALVE: Well visualized . Mildly calcified annulus. Trileaflet; normal thickness, noncalcifie d leaflets. Small Lambl's excresence noted. Normal variant. Doppler: The re is no regurgitation. Dimensionless index: 0.81. Valve area ( VTI): 2.5 cm2. Indexed valve area (VTI): 1.47 cm2/m2. Mean gradient (S): 5 mm Hg. P eak gradient (S): 9 mm Hg. Peak velocity (S): 1.5 m/sec. TRICUSPID VALVE: Well visualized. Normal thickness leaflets. Doppler: There is mil d, 1+ regurgitation. 24 mmHg PULMONIC VALVE: Well visualized. St ructurally normal valve. Doppler: There is trivial, less than 1+ regurgitati on. Peak gradient (S): 4.03 mm Hg. AORTA: The aorta is normal. PULMONARY ARTER Y: Systolic pressure is in the range of 24 mm Hg to 27 mm Hg. Main pulmo nary artery: Normal. PERICARDIUM: There is no pericardial effusion. SYSTE NIGEL VEINS: Not well visualized. Inferior vena cava: The vessel is patent and small, may be consistent with low central venous pressure. Mean RA pressur e 0-3 mmHg. --- Measurements Left ventricle Value 06/04/2016 Refer ence LV ID, ED (L) 3.8 cm 3.3 3.9 - 5.3 LV ID, ES 2.4 cm 2.4 ------- -- LV PW thi ckness, ED 0.9 cm 1.3 0.6 - 0.9 LV end-diastolic volume, 1-p A4C (L) 32 ml 107 56 - 104 LV end-systolic volume, 1-p A4C (L) 11 ml 36 19 - 49 LV end-jack stolic volume, 2-p (L) 32 ml 98 56 - 104 LV end-systolic volume, 2-p (L) 10 ml 26 19 - 49 LV ejection fraction, 2-p 63 % 73 >=55 LV end-diastolic vo lume/bsa, 2-p (L) 19 ml/m2 61 35 - 75 LV end-systolic volume/bsa, 2-p (L) 6 ml /m2 16 12 - 30 LV E/e', lateral 17.2 8.8 ------- -- LV E/e', medial 2 0.6 ------- -- LV E/e', average 18.7 ------- -- Ventricular s eptum Value 06/04/2016 Reference IVS thickness, ED (H) 1.1 cm 1.2 0.6 - 0.9 LVOT Value 06/04/2016 Reference LVOT ID, A-P 2.0 cm 1.9 ------- -- LV OT VTI, S 26.7 cm 38.0 ------- -- LVOT peak gradient, S 6 mm Hg 11 ------- -- Stroke volume (SV), LVOT DP 82 ml 108 ------- -- Stroke index (SV/bsa), LV OT DP 48 ml/m2 67 -------- - Aortic valve Value 06/04/2016 Reference Aortic annulus diameter, ED 1.5 cm ------- -- Aortic valve pea k velocity, S 1.5 m/sec ------- -- Aortic valve mean velocity, S 0. 99 m/sec 1.18 ------- -- Aortic valve VTI, S 32.8 cm 36.8 ------- -- Aortic mean gradient, S 5 mm Hg 6 ------- -- Aortic peak gradient, S 9 mm Hg 11 ------- -- DI 0.81 1.03 ------- -- Aortic valve area, VTI 2.5 cm2 2.93 ------ -- - Aortic valve area/bsa, VTI 1.47 cm2/m2 --------- Left atrium Value 06/04/2016 Reference LA volume, ES, 2-p 52 ml ------- -- L A volume/bsa, ES, 2-p 30 ml/m2 -------- - Mitral valve Value 2015 Reference Mitral E-wave peak velocity 1.03 m/sec 0.73 ------- -- Clarita l A-wave peak velocity 1.42 m/sec 1.4 ------- -- Mitral deceleration time 348 ms 331 ------- -- Mitral peak gradient, D 4.25 mm Hg 7.41 ------- - - Mitral E/A ratio, peak 0.72 0.52 ------- -- Tricuspid valve Value Reference Tricuspid regurg peak velocity 2.46 m/sec 2.12 ------- -- Right atrium Value 06/04/2016 Reference RA area, ES, A4C 18 cm2 14 10 Righ t ventricle Value 06/04/2016 Reference RV ID, minor axis, ED, A4C base 2.8 cm 2.7 2.4 - 4.2 RV ID, minor axis, ED, A4C mid (H) 3.6 cm 2.9 2.0 - 3.5 TAPSE 2.8 cm 1.4 ------- -- Pulmonic valve Value 06/04/2016 Reference P ulmonic peak gradient, S 4.03 mm Hg ------- -- Pulmonic regurg gradient, ED 4 mm Hg ------- -- Legend: (L) and (H) mono values outsid e specified reference range. Electronically signed by Tiffani Herrmann 02/07/2017 10:36 Final Dictated: 02/07/2017 10:37 am Dictat ing Physician: MD KYLE STEPHEN A Signed Date and Time: 02/07/2017 10 :37 am Signed by: MD KYLE STEPHEN A vl venous duplex us lower ext bilateral on 2017-02-06 Bilirubin Patient Name: ABBEY RESENDIZ FIN: [id number] Normal 02-06-2017 [facility] (total) Ultrasound Exam Date/Time 02/06/2017 10:43 :01 EDT Exam VL Venous Health Duplex US Lower Ext Bilateral Ordering Physician JENNY TSANG , [employer] Accession Number [id number] CPT4 Codes 43625 () Reason Fo r Exam edema, (09391) pain, elevated d-dimer Report [facility] --- Lower Extremity Venous Duplex Report Patient Name: Abbey Oliveros : 1945 Study 02/06/2017 (71yrs) Date: Age: 71 Account: [id number] Gender: F Loc: [facility] BP: Ordering: Nolvia Tsang Technologist: Antonio Lao n: Nolvia Tsang Delivery Man: Neli Shaw hysician: Safia Cloud --- Location: [facility] INDICATIONS: Edema b ilateral ankle and foot. --- CONCLUSIONS 1. Positive for below knee DVT on the right 2. If patient is not anticoagulated, may wish follow-up studies at 3, 10, and 30 days. --- IMPRESSIONS: - Findings show deep vein thrombosis of the right leg in the veins noted below. - These findings are negative for janusz p vein thrombosis in the left lower extremity - These findings are negative for superficial vein thrombosis in the bilateral lower extremiti es. --- STUDY DATA: [facility] Birth[facility]: Patient birthdate: 1945. Age: Patient is 71 yr old. Sex: Gender: female. Ethnicity: Ethnicity: white. Doppler flow [facility] including spectral analysis, color and solis scale imaging. Patient sta tus: Observation. Procedure: A vascular evaluation was perf ormed. The images were obtained using a [employer] E9 vascular ultrasound machine. --- VENOUS FLOW AND IMAGING: + + + +------ --+ !Location !Overall !Thrombosis!Flow properties ! + + + +------ --+ !Right common femoral !Patent ! !Normal phasici ty; ! ! ! ! !spontaneous; normal ! ! ! ! !augmentation; ! ! ! ! !hugo sible ! + + + +------ --+ !Right saphenofemoral !Patent ! !Compress ible ! !junction ! ! ! ! + + + +------ --+ !Right profunda !Patent ! !Normal phasicity; ! !femoral ! ! !spontaneous; normal ! ! ! ! !augmentation ! + + + +------ --+ !R femoral proximal !Patent ! !Compressible ! + + + +------ --+ !R femoral mid !Patent ! !Normal phasicity; ! ! ! ! !spontaneous; normal ! ! ! ! !augmentation; ! ! ! ! !hugo sible ! + + + +------ --+ !R femoral distal !Patent ! !Compressible ! + + + +------ --+ !Right popliteal !Patent ! !Normal phasicity; ! ! ! ! !spontaneous; normal ! ! ! ! !augmentation; ! ! ! ! !hugo sible ! + + + +------ --+ !Right gastrocnemius !Patent ! !Compressible ! + + + +------ --+ !Right posterior !Patent ! !Compressible ! !tib ial ! ! ! ! + + + +------ --+ !Right peroneal !Partially !Acute !Partially compressi ble ! ! !occluded ! ! ! + + + +------ --+ !Right soleal !Patent ! !Compressible ! + + + +------ --+ !Right greater !Patent ! !Compressible ! !saphe nous ! ! ! ! + + + +------ --+ !Left common femoral !Patent ! !Normal phasicit y; ! ! ! ! !spontaneous; normal ! ! ! ! !augmentation; ! ! ! ! !hugo sible ! + + + +------ --+ !Left saphenofemoral !Patent ! !Compressible ! !junction ! ! ! ! + + + +------ --+ !Left profunda femoral!Patent ! !Normal phasici ty; ! ! ! ! !spontaneous; normal ! ! ! ! !augmentation ! + + + +------ --+ !L femoral proximal !Patent ! !Compressible ! + + + +------ --+ !L femoral mid !Patent ! !Normal phasicity; ! ! ! ! !spontaneous; normal ! ! ! ! !augmentation; ! ! ! ! !hugo sible ! + + + +------ --+ !L femoral distal !Patent ! !Compressible ! + + + +------ --+ !Left popliteal !Patent ! !Normal phasicity; ! ! ! ! !spontaneous; normal ! ! ! ! !augmentation; ! ! ! ! !hugo sible ! + + + +------ --+ !Left gastrocnemius !Patent ! !Compressible ! + + + +------ --+ !Left posterior tibial!Patent ! !Compressible ! + + + +------ --+ !Left peroneal !Patent ! !Compressible ! + + + +------ --+ !Left soleal !Patent ! !Compressible ! + + + +------ --+ !Left greater !Patent ! !Compressible ! !saphen ous ! ! ! ! + + + +------ --+ Electronically signed by: Safia Cloud [id number]: [id number] Final Dictated: 02/06/2017 10:57 am Dictating Physicia n: SAFIA CLOUD Signed Date and Time: 02/06/2017 10:56 am Signed by: SAFIA CLOUD urinalysis,microscopic on 2017-02-06 Urine, bacteria in Few (1-5) Negative Normal 02-06-2017 [facility] sediment ([id number]) Comment: Performed By: #### HEMDF, PT /AP, CMP3, TSH4, B12, BNP3, RPR ####[place] [address] [place] [address] Urine, epithelial cells in 0-2 3-5 Normal [facility] (87491) sediment Comment: Performed By: #### HEMDF, PT /AP, CMP3, TSH4, B12, BNP3, RPR ####[place] [address] [place] [address] Urine, erythrocytes in Negative 0-2 /[HPF] Normal 017 [facility] sediment by area (00 000) Comment: Performed By: #### HEMDF, PT /AP, CMP3, TSH4, B12, BNP3, RPR ####[place] [address] [place] [address] Urine, leukocytes in 11-25 0-5 Normal 7 [facility] sedmiment (61888) Comment: Performed By: #### HEMDF, PT /AP, CMP3, TSH4, B12, BNP3, RPR ####[place] [address] [place] [address] Urine, yeast presence in Few (1-5) Negative Normal 02-06 [facility] sediment (05587) Comment: Performed By: #### HEMDF, PT /AP, CMP3, TSH4, B12, BNP3, RPR ####[place] [address] [place] [address] urinalysis,macro on 2017-02-06 Bilirubin (direct) NEG Negative mg/dL Normal 02-06-2017 [facility] (91007) Comment: Performed By: #### HEMDF, PT /AP, CMP3, TSH4, B12, BNP3, RPR ####[place] [address] [place] [address] Ketone,Urine NEG Negative Normal 02-06-2017 [facility] (74208) Comment: Performed By: #### HEMDF, PT /AP, CMP3, TSH4, B12, BNP3, RPR ####[place] [address] [place] [address] Occult Blood,Ur NEG Negative Normal 02-06-2017 [facility] (91302) Comment: Performed By: #### HEMDF, PT /AP, CMP3, TSH4, B12, BNP3, RPR ####[place] [address] [place] [address] Specific [place],Urine 1.005 1.005-1.030 Normal 02-06 [facility] (98389) Comment: Performed By: #### HEMDF, PT /AP, CMP3, TSH4, B12, BNP3, RPR ####[place] [address] [place] [address] Total Protein,Urine NEG Negative Normal 02-06-2017 [facility] (97372) Comment: Performed By: #### HEMDF, PT /AP, CMP3, TSH4, B12, BNP3, RPR ####[place] [address] [place] [address] Urine, appearance clear Clear Normal 02-06-2017 [facility] (77081) Comment: Performed By: #### HEMDF, PT /AP, CMP3, TSH4, B12, BNP3, RPR ####[place] [address] [place] [address] Urine, color p. yel Lt. Yellow Normal 02-06-2017 [facility] (09765) Comment: Performed By: #### HEMDF, PT /AP, CMP3, TSH4, B12, BNP3, RPR ####[place] [address] [place] [address] Urine, glucose presence NORM Negative Normal 2016 [facility] (42097) Comment: Performed By: #### HEMDF, PT /AP, CMP3, TSH4, B12, BNP3, RPR ####[place] [address] [place] [address] Urine, nitrite presence NEG Negative Normal 2016 [facility] (25445) Comment: Performed By: #### HEMDF, PT /AP, CMP3, TSH4, B12, BNP3, RPR ####[place] [address] [place] [address] Urine, pH 5.0 5.0-8.0 [pH] Normal 02-06-2017 [facility] (53497) Comment: Performed By: #### HEMDF, PT /AP, CMP3, TSH4, B12, BNP3, RPR ####[place] [address] [place] [address] Urine, urobilinogen NORM 0-1 Normal 02-06-2017 [facility] (75578) Comment: Performed By: #### HEMDF, PT /AP, CMP3, TSH4, B12, BNP3, RPR ####[place] [address] [place] [address] WBC (Leukocytes) 1+ Negative Normal 02-06-2017 [facility] (45376) Comment: Performed By: #### HEMDF, PT /AP, CMP3, TSH4, B12, BNP3, RPR ####[place] [address] [place] [address] troponin i on 02-06 Troponin I.cardiac < 0.015 0.000-0.045 ng/mL Normal 7 [facility] mass conc (88937) Comment: Result Comment: 0.046 - 0.40 0 = Indeterminate> 0.400 = Consider Myocardial Injury Performed By: #### HEMDF, AP TT, PT, CMP3, BNP3, DDI, TSH4, LIPD2, TROPN ####[address] [place] [address] thyroid stim. hormone on 2017-02-06 Thyroid Stim. Hormone 4.510 0.358-3.740 uU/mL High 2016 [facility] (70043) Comment: Performed By: #### HEMDF, AP TT, PT, CMP3, BNP3, DDI, TSH4, LIPD2, TROPN ####[place] [address] [place] [address] prothrombin time on 2017-02-06 INR Coag RelTime (PPP) 0.9 0.9-1.1 {INR} Normal 017 [facility] (94380) Comment: Result Comment: Recommended Anticoagulant Therapy:SEE BELOW----- INR of 2.0 - 3.0 :- Prophylaxis of Veno us Thrombosis (high-risk surgery)- Treatment of Venous Thrombosis- Treatment of Pulmonary Embolism (Includes tissue heartvalves, Acute Myocardia l Infarction to prevent systemicembolism, Valvular Heart Disease, and Atrial Fibrillation)----- INR of 2.5 - 3.5 :- Mechanical Prosthetic Valves (high risk)- If oral anticoagulant therapy is used to preventMyocardial In farction Performed By: #### HEMDF, AP TT, PT, CMP3, BNP3, DDI, TSH4, LIPD2, TROPN ####[place] [address] [place] [address] Prothrombin time (PT) Coag 9.7 9.0-12.0 s Normal [facility] time (PPP) (03979) Comment: Result Comment: . Performed By: #### HEMDF, AP TT, PT, CMP3, BNP3, DDI, TSH4, LIPD2, TROPN ####[address] [address] nt pro bnp on 02-06 BNP 310 0-125 pg/mL High 02-06-2017 [facility] (61922) Comment: Performed By: #### HEMDF, AP TT, PT, CMP3, BNP3, DDI, TSH4, LIPD2, TROPN ####[address] [address] lipid panel on 2016 Cholesterol to HDL Ratio 3 Normal 02-06 [facility] (08742) Comment: Result Comment: Ref Range:< 3 Low Risk for CHD3-6 Mod Risk for CHD> 6 High Risk for CHD Performed By: #### HEMDF, AP TT, PT, CMP3, BNP3, DDI, TSH4, LIPD2, TROPN ####[address] [address] HDL Cholesterol 50 40-59 mg/dL Normal 02-06-2017 [facility] (31540) Comment: Performed By: #### HEMDF, AP TT, PT, CMP3, BNP3, DDI, TSH4, LIPD2, TROPN ####[address] [address] Low Density Lipoprotein 76 <100 mg/dL Normal 2016 [facility] (54232) Comment: Performed By: #### HEMDF, AP TT, PT, CMP3, BNP3, DDI, TSH4, LIPD2, TROPN ####[address] [address] Triglyceride 180 <150 mg/dL Abnormal 02-06-2017 [facility] (58559) Comment: Performed By: #### HEMDF, AP TT, PT, CMP3, BNP3, DDI, TSH4, LIPD2, TROPN ####[address] [address] Cholesterol 162 < 200 mg/dL Normal 02-06-2017 [facility] (32722) Comment: Performed By: #### HEMDF, AP TT, PT, CMP3, BNP3, DDI, TSH4, LIPD2, TROPN ####[address] [address] hemogram w/ autodiff on 2017-02-06 Abs Baso Cnt 0.0 0.0-0.2 10*3/uL Normal 02-06-2017 [facility] (34484) Comment: Performed By: #### HEMDF, AP TT, PT, CMP3, BNP3, DDI, TSH4, LIPD2, TROPN ####[address] [address] Basophils/100 WBC Auto (Bld) 0.5 % Normal 0 02-06-2017 [facility] (13070) Comment: Performed By: #### HEMDF, AP TT, PT, CMP3, BNP3, DDI, TSH4, LIPD2, TROPN ####[place] [address] [place] [address] Eosinophils 0.1 0.0-0.5 10*3/uL Normal 02-06-2017 [facility] (79346) Comment: Performed By: #### HEMDF, AP TT, PT, CMP3, BNP3, DDI, TSH4, LIPD2, TROPN ####[address] [address] Eosinophils/100 leukocytes 2.1 % Normal [facility] (82436) Comment: Performed By: #### HEMDF, AP TT, PT, CMP3, BNP3, DDI, TSH4, LIPD2, TROPN ####[address] [address] Erythrocyte distribution 13.6 11.5-14.5 % Normal 02-06 [facility] width Auto Ratio (RBC) (21749) Comment: Performed By: #### HEMDF, AP TT, PT, CMP3, BNP3, DDI, TSH4, LIPD2, TROPN ####[address] [address] Erythrocytes (RBC) 3.92 3.80-5.20 10*6/uL Normal 02-06-2017 [facility] (20792) Comment: Performed By: #### HEMDF, AP TT, PT, CMP3, BNP3, DDI, TSH4, LIPD2, TROPN ####[address] [address] Granulocytes/100 WBC (Bld) 66.7 % Normal [facility] (96426) Comment: Performed By: #### HEMDF, AP TT, PT, CMP3, BNP3, DDI, TSH4, LIPD2, TROPN ####[place] [address] Hematocrit (HCT) 35.7 35.0-47.0 % Normal 02-06-2017 [facility] (07861) Comment: Performed By: #### HEMDF, AP TT, PT, CMP3, BNP3, DDI, TSH4, LIPD2, TROPN ####[address] [address] Hemoglobin mass conc 12.1 11.7-16.0 g/dL Normal 7 [facility] (Bld) (04139) Comment: Performed By: #### HEMDF, AP TT, PT, CMP3, BNP3, DDI, TSH4, LIPD2, TROPN ####[place] [address] Lymphocytes 1.7 1.0-4.3 10*3/uL Normal 02-06-2017 [facility] (07531) Comment: Performed By: #### HEMDF, AP TT, PT, CMP3, BNP3, DDI, TSH4, LIPD2, TROPN ####[address] [address] Lymphocytes/100 leukocytes 24.5 % Normal [facility] (65660) Comment: Performed By: #### HEMDF, AP TT, PT, CMP3, BNP3, DDI, TSH4, LIPD2, TROPN ####[address] [address] MCH 30.7 26.0-34.0 pg Normal 02-06-2017 [facility] (94417) Comment: Performed By: #### HEMDF, AP TT, PT, CMP3, BNP3, DDI, TSH4, LIPD2, TROPN ####[place] [address] MCHC mass conc (RBC) 33.8 32.0-36.0 % Normal 7 [facility] (71847) Comment: Performed By: #### HEMDF, AP TT, PT, CMP3, BNP3, DDI, TSH4, LIPD2, TROPN ####[address] [address] MCV 91.0 79.0-98.0 fL Normal 02-06-2017 [facility] (06126) Comment: Performed By: #### HEMDF, AP TT, PT, CMP3, BNP3, DDI, TSH4, LIPD2, TROPN ####[address] [address] Monocytes 0.4 0.0-0.8 10*3/uL Normal 02-06-2017 [facility] (20409) Comment: Performed By: #### HEMDF, AP TT, PT, CMP3, BNP3, DDI, TSH4, LIPD2, TROPN ####[address] [address] Monocytes/100 leukocytes 6.2 % Normal 02-06 [facility] (29079) Comment: Performed By: #### HEMDF, AP TT, PT, CMP3, BNP3, DDI, TSH4, LIPD2, TROPN ####[address] [address] Neutrophils 4.7 1.8-7.0 10*3/uL Normal 02-06-2017 [facility] (68071) Comment: Performed By: #### HEMDF, AP TT, PT, CMP3, BNP3, DDI, TSH4, LIPD2, TROPN ####[address] [address] Platelet mean volume (PMV) 9.3 7.4-10.4 fL Normal [facility] (50512) Comment: Performed By: #### HEMDF, AP TT, PT, CMP3, BNP3, DDI, TSH4, LIPD2, TROPN ####[address] [place] [address] Platelets 169 140-440 10*3/uL Normal 02-06-2017 [facility] (49805) Comment: Performed By: #### HEMDF, AP TT, PT, CMP3, BNP3, DDI, TSH4, LIPD2, TROPN ####[address] [address] WBC (Leukocytes) 7.0 3.6-10.7 10*3/uL Normal 02-06-2017 [facility] (20202) Comment: Performed By: #### HEMDF, AP TT, PT, CMP3, BNP3, DDI, TSH4, LIPD2, TROPN ####[address] [address] glucose,bedside on 2017-02-06 Glucose mass conc 216 70-100 mg/dL High 02-06-2017 [facility] (50908) Comment: Result Comment: Test perform ed by glucose meter. Results may be 10%-15% lowerthan serum/plasma value s. (CLIA ID [id number]) Performed By: #### HEMDF, PT /AP, CMP3, TSH4, B12, BNP3, RPR ####[address] [address] Glucose mass conc 157 70-100 mg/dL High 02-06-2017 [facility] (73755) Comment: Result Comment: Test perform ed by glucose meter. Results may be 10%-15% lowerthan serum/plasma value s. (CLIA ID [id number]) Performed By: #### HEMDF, PT /AP, CMP3, TSH4, B12, BNP3, RPR ####[address] [address] Glucose mass conc 111 70-100 mg/dL High 02-06-2017 [facility] (05456) Comment: Result Comment: Test perform ed by glucose meter. Results may be 10%-15% lowerthan serum/plasma value s. (CLIA ID [id number]) Performed By: #### BGLU #### [address] [place] [address] Glucose mass conc 121 70-100 mg/dL High 02-06-2017 [facility] (39081) Comment: Result Comment: Test perform ed by glucose meter. Results may be 10%-15% lowerthan serum/plasma value s. (CLIA ID [id number]) Performed By: #### BGLU #### [place] [address] [place] [address] d-dimer, innovance on 2017-02-06 D-Dimer, Innovance 3.44 0.17-0.59 ug{FEU}/mL High 02-06-2017 [facility] (21360) Comment: Result Comment: Innovance D- Dimer values of <0.50 mg/L FEU can be used incombination with a pre-braxton t probability model (e.g. Well's)to exclude pulmonary embolism (PE) dise ase, as well as alyssa in the diagnosis of deep vein thrombosis (DVT). Performed By: #### HEMDF, AP TT, PT, CMP3, BNP3, DDI, TSH4, LIPD2, TROPN ####[place] [address] [place] [address] cta chest w/ + w/o contrast on 2017-02-06 CTA Chest w/ + w/o Patient Name: Lucien RESENDIZ 02-06-2017 [facility] Contrast [facility] (26627) CT Exam Date/Time 02/06/2017 04:32:28 EDT Exam CTA Chest w/ + w/o Contrast Ordering Physician JENNY TSANG [place] Accession Number [id number] CPT4 Codes 83265 (), Q9967 () Reason For Exam DYSPNEA, ON EXERTION Report CTA Chest w/ + w/o Contrast performed 02/06/2017 5:04 AM EDT INDICATION: Dyspnea on exertion COMPARISON: None TECHNIQUE: Helically acquired CT images were obtained through the thorax with 75 mL intravenous contrast and reconstructed in axial, coronal and sagittal planes. Additional 3-D reformatted images were created and interpreted at the 3-D workstation by myself at the time of dictation. FINDINGS: This study is adequate to assess the pulmonary arteries. Multiple segmental filling defects are present on the right and left, consistent with acute thromboembolism. Ventricular size appears appropriate, no reflux of contrast is seen in the hepatic veins. Airways and Parenchyma: The central airways are patent. There is no focal airspace consolidation. Pleura: There is no pleural collection. Mediastinum: Fatty herniation through a paramediastinal left posterior diaphragmatic defect. Moderate hiatal hernia. Heart and Great Vessels: Pulmonary arteries as above. 3.7 cm ascending aorta. Chest wall: Chest wall demonstrates no abnormality. Thyroid is unremarkable. Osseous structures: No acute abnormality Upper abdomen (limited): Bilateral renal pelvocaliectasis. 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 IMPRESSION: Bilateral segmental pulmonary arterial filling defects, consistent with acute thromboembolic disease. Report Dictated on Workstation: [id number] Final Dictated: 02/06/2017 5:04 am Dictating Physician: MD BRADSHAW DALE Signed Date and Time: 02/06/2017 5:09 am Signed by: MD BRADSHAW DALE Transcribed Date and Time: 02/06/2017 5:04 comp metabolic panel on 2017-02-06 Alkaline phosphatase (ALP) 80 45-117 U/L Normal [facility] (04593) Comment: Performed By: #### HEMDF, AP TT, PT, CMP3, BNP3, DDI, TSH4, LIPD2, TROPN ####[address] [address] Anion gap 7 mmol/L Normal 02-06-2017 [facility] (28955) Comment: Performed By: #### HEMDF, AP TT, PT, CMP3, BNP3, DDI, TSH4, LIPD2, TROPN ####[address] [address] Bilirubin (total) 0.4 0.2-1.0 mg/dL Normal 02-06-2017 [facility] (30543) Comment: Performed By: #### HEMDF, AP TT, PT, CMP3, BNP3, DDI, TSH4, LIPD2, TROPN ####[address] [address] Protein 7.3 6.4-8.2 g/dL Normal 02-06-2017 [facility] (80151) Comment: Performed By: #### HEMDF, AP TT, PT, CMP3, BNP3, DDI, TSH4, LIPD2, TROPN ####[place] [address] Alanine aminotransferase (ALT) 31 12-78 U/L Normal 02-06-2017 [facility] (36142) Comment: Performed By: #### HEMDF, AP TT, PT, CMP3, BNP3, DDI, TSH4, LIPD2, TROPN ####[place] [address] Aspartate aminotransferase (AST) 14 15-37 U/L Low 02-06-2017 [facility] (81975) Comment: Performed By: #### HEMDF, AP TT, PT, CMP3, BNP3, DDI, TSH4, LIPD2, TROPN ####[place] [address] Creatinine 1.25 0.55-1.40 mg/dL Normal 02-06-2017 [facility] (40644) Comment: Performed By: #### HEMDF, AP TT, PT, CMP3, BNP3, DDI, TSH4, LIPD2, TROPN ####[place] [address] eGFR (black) 50.8 >60 mL/min Normal 02-06-2017 [facility] (61319) Comment: Performed By: #### HEMDF, AP TT, PT, CMP3, BNP3, DDI, TSH4, LIPD2, TROPN ####[place] [address] eGFR (non-black) 42.0 >60 mL/min Normal 02-06-2017 [facility] (60182) Comment: Result Comment: Source- MDRD equation with creatinine calibration to IDMS(NKDEP)eGFR not recommen ded for drug dose adjustment Performed By: #### HEMDF, AP TT, PT, CMP3, BNP3, DDI, TSH4, LIPD2, TROPN ####[address] [place] [address] Albumin 3.2 3.4-5.0 g/dL Low 02-06-2017 [facility] (50134) Comment: Performed By: #### HEMDF, AP TT, PT, CMP3, BNP3, DDI, TSH4, LIPD2, TROPN ####[address] [place] [address] Urea nitrogen 14 7-25 mg/dL Normal 02-06-2017 [facility] (62088) Comment: Performed By: #### HEMDF, AP TT, PT, CMP3, BNP3, DDI, TSH4, LIPD2, TROPN ####[place] [address] Calcium 8.6 8.2-10.1 mg/dL Normal 02-06-2017 [facility] (49788) Comment: Performed By: #### HEMDF, AP TT, PT, CMP3, BNP3, DDI, TSH4, LIPD2, TROPN ####[place] [address] CO2 24 21-32 mmol/L Normal 02-06-2017 [facility] (65954) Comment: Performed By: #### HEMDF, AP TT, PT, CMP3, BNP3, DDI, TSH4, LIPD2, TROPN ####[place] [address] Glucose mass conc 58 70-100 mg/dL Low 02-06-2017 [facility] (30749) Comment: Performed By: #### HEMDF, AP TT, PT, CMP3, BNP3, DDI, TSH4, LIPD2, TROPN ####[place] [address] Chloride 109 98-109 mmol/L Normal 02-06-2017 [facility] (06908) Comment: Performed By: #### HEMDF, AP TT, PT, CMP3, BNP3, DDI, TSH4, LIPD2, TROPN ####[address] [place] [address] Potassium molar conc 3.3 3.5-5.1 mmol/L Low 7 [facility] (78049) Comment: Performed By: #### HEMDF, AP TT, PT, CMP3, BNP3, DDI, TSH4, LIPD2, TROPN ####[address] [address] Sodium 140 135-145 mmol/L Normal 02-06-2017 [facility] (84542) Comment: Performed By: #### HEMDF, AP TT, PT, CMP3, BNP3, DDI, TSH4, LIPD2, TROPN ####[address] [address] basic metabolic panel on 2017-02-06 Anion gap 8 mmol/L Normal 02-06-2017 [facility] (45063) Comment: Performed By: #### BMP3 #### [place] [address] Creatinine 1.23 0.55-1.40 mg/dL Normal 02-06-2017 [facility] (51218) Comment: Performed By: #### BMP3 #### [place] [address] eGFR (black) 51.8 >60 mL/min Normal 02-06-2017 [facility] (17170) Comment: Performed By: #### BMP3 #### [address] [address] eGFR (non-black) 42.7 >60 mL/min Normal 02-06-2017 [facility] (86127) Comment: Result Comment: Source- MDRD equation with creatinine calibration to IDMS(NKDEP)eGFR not recommen ded for drug dose adjustment Performed By: #### BMP3 #### [address] [place] [id number] CO2 27 21-32 mmol/L Normal 02-06-2017 [facility] (87117) Comment: Performed By: #### BMP3 #### [address] [place] [address] Glucose mass conc 109 70-100 mg/dL High 02-06-2017 [facility] (83390) Comment: Performed By: #### BMP3 #### [address] [address] Urea nitrogen 14 7-25 mg/dL Normal 02-06-2017 [facility] (53318) Comment: Performed By: #### BMP3 #### [address] [address] Calcium 8.6 8.2-10.1 mg/dL Normal 02-06-2017 [facility] (13645) Comment: Performed By: #### BMP3 #### [address] [address] Chloride 107 98-109 mmol/L Normal 02-06-2017 [facility] (10966) Comment: Performed By: #### BMP3 #### [address] [address] Potassium molar conc 3.7 3.5-5.1 mmol/L Normal 7 [facility] (47414) Comment: Performed By: #### BMP3 #### [address] [address] Sodium 142 135-145 mmol/L Normal 02-06-2017 [facility] (82794) Comment: Performed By: #### BMP3 #### [address] [address] aptt on 2017-02-06 aPTT 22.0 20.0-30.5 s Normal 02-06-2017 [facility] (18683) Comment: Result Comment: NOTE: The th erapeutic time for Heparin anticoagulation,based on Xa activity inhibition, i s an APTT of 46-80seconds. Performed By: #### HEMDF, AP TT, PT, CMP3, BNP3, DDI, TSH4, LIPD2, TROPN ####[address] [address] hemogram on 2017-01 Erythrocyte distribution 14.0 11.5-14.5 % Normal 01-24 [facility] width Auto Ratio (RBC) (65079) Comment: Performed By: #### BMP3, HEM OG ####[address] [place] [address] Erythrocytes (RBC) 3.52 3.80-5.20 10*6/uL Low 01-24-2017 [facility] (90958) Comment: Performed By: #### BMP3, HEM OG ####[address] [place] [address] Hematocrit (HCT) 31.3 35.0-47.0 % Low 01-24-2017 [facility] (37332) Comment: Performed By: #### BMP3, HEM OG ####[place] [address] Hemoglobin mass conc (Bld) 10.7 11.7-16.0 g/dL Low [facility] (46796) Comment: Performed By: #### BMP3, HEM OG ####[address] [place] [address] MCH 30.3 26.0-34.0 pg Normal 01-24-2017 [facility] (71092) Comment: Performed By: #### BMP3, HEM OG ####[address] [place] [address] MCHC mass conc (RBC) 34.1 32.0-36.0 % Normal 7 [facility] (76712) Comment: Performed By: #### BMP3, HEM OG ####[address] [place] [address] MCV 89.0 79.0-98.0 fL Normal 01-24-2017 [facility] (53503) Comment: Performed By: #### BMP3, HEM OG ####[address] [place] [address] Platelet mean volume (PMV) 9.8 7.4-10.4 fL Normal [facility] (67653) Comment: Performed By: #### BMP3, HEM OG ####[place] [address] [place] [address] Platelets 133 140-440 10*3/uL Low 01-24-2017 [facility] (67355) Comment: Performed By: #### BMP3, HEM OG ####[place] [id number] [place] [address] WBC (Leukocytes) 4.0 3.6-10.7 10*3/uL Normal 01-24-2017 [facility] (24451) Comment: Performed By: #### BMP3, HEM OG ####[address] [place] [address] glucose,bedside on 2017-01-24 Glucose mass conc 399 70-100 mg/dL High 01-24-2017 [facility] (68364) Comment: Result Comment: Test perform ed by glucose meter. Results may be 10%-15% lowerthan serum/plasma value s. (CLIA ID [id number]) Performed By: #### BGLU #### [address] [place] [place] [address] Glucose mass conc 197 70-100 mg/dL High 01-24-2017 [facility] ([id number]) Comment: Result Comment: Test perform ed by glucose meter. Results may be 10%-15% lowerthan serum/plasma value s. (CLIA ID [id number]) Performed By: #### BGLU #### [place] [address] [place] [address] Glucose mass conc 263 70-100 mg/dL High 01-24-2017 [facility] ([id number]) Comment: Result Comment: Test perform ed by glucose meter. Results may be 10%-15% lowerthan serum/plasma value s. (CLIA ID [id number]) Performed By: #### BGLU #### [place] [address] [place] [address] Glucose mass conc 249 70-100 mg/dL High 01-24-2017 [facility] ([id number]) Comment: Result Comment: Test perform ed by glucose meter. Results may be 10%-15% lowerthan serum/plasma value s. (CLIA ID [id number]) Performed By: #### BGLU #### [address] [place] [address] basic metabolic panel on 2017-01-24 Anion gap 9 mmol/L Normal 01-24-2017 [facility] ([id number]) Comment: Performed By: #### BMP3, HEM OG ####[address] [place] [address] Creatinine 1.13 0.55-1.40 mg/dL Normal 01-24-2017 [facility] ([id number]) Comment: Performed By: #### BMP3, HEM OG ####[address] [place] [address] eGFR (black) 57.1 >60 mL/min Normal 01-24-2017 [facility] ([id number]) Comment: Performed By: #### BMP3, HEM OG ####[address] [place] [address] eGFR (non-black) 47.1 >60 mL/min Normal 01-24-2017 [facility] ([id number]) Comment: Result Comment: Source- MDRD equation with creatinine calibration to IDMS(NKDEP)eGFR not recommen ded for drug dose adjustment Performed By: #### BMP3, HEM OG ####[address] [place] [address] Glucose mass conc 223 70-100 mg/dL High 01-24-2017 [facility] (79080) Comment: Performed By: #### BMP3, HEM OG ####[address] [place] [address] Urea nitrogen 24 7-25 mg/dL Normal 01-24-2017 [facility] (89837) Comment: Performed By: #### BMP3, HEM OG ####[address] [place] [address] Calcium 8.1 8.2-10.1 mg/dL Low 01-24-2017 [facility] (69366) Comment: Performed By: #### BMP3, HEM OG ####[facility] [place] [address] CO2 21 21-32 mmol/L Normal 01-24-2017 [facility] (08536) Comment: Performed By: #### BMP3, HEM OG ####[address] [place] [address] Chloride 110 98-109 mmol/L High 01-24-2017 [facility] (57345) Comment: Performed By: #### BMP3, HEM OG ####[place] [address] [place] [address] Potassium molar conc 4.3 3.5-5.1 mmol/L Normal 7 [facility] (98955) Comment: Performed By: #### BMP3, HEM OG ####[address] [place] [address] Sodium 140 135-145 mmol/L Normal 01-24-2017 [facility] ([id number]) Comment: Performed By: #### BMP3, HEM OG ####[address] [place] [address] rpr, qual on 01-23 RPR, Qual NONREACTIVE Non-Reactive Normal 01-23-2017 [facility] ([id number]) Comment: Performed By: #### UAFRAN, UA NIGEL ####[address] [place] [address] hiv 1,2 ab; p24 ag on 2017-01-23 HIV 1,2 Ab; p24 Ag NONREACTIVE Nonreactive Normal 017 [facility] ([id number]) Comment: Result Comment: Results obta ined using the FDA cleared 4th generation HIVtest. This test detects a ntibodies to HIV1, HIV2, HIV Group O,and the presence of the HIV-1 p24 an tigen. A Non-Reactive re-sult indicates the patient is negative for both HIV antibodyand HIV p24 antigen. All reactive results will undergo reflexc onfirmation testing at an additional charge. Performed By: #### UAMAC, UA NIGEL ####[address] [place] [address] hemogram on 2017-01 Erythrocyte distribution 14.3 11.5-14.5 % Normal 01-23 [facility] width Auto Ratio (RBC) (38273) Comment: Performed By: #### UAMAC, UA NIGEL ####[address] [place] [address] Erythrocytes (RBC) 3.77 3.80-5.20 10*6/uL Low 01-23-2017 [facility] ([id number]) Comment: Performed By: #### UAMAC, UA NIGEL ####[address] [place] [address] Hematocrit (HCT) 33.6 35.0-47.0 % Low 01-23-2017 [facility] (91539) Comment: Performed By: #### UAMAC, UA NIGEL ####[address] [place] [address] Hemoglobin mass conc (Bld) 11.4 11.7-16.0 g/dL Low [facility] (09206) Comment: Performed By: #### UAMAC, UA NIGEL ####[address] [place] [address] MCH 30.3 26.0-34.0 pg Normal 01-23-2017 [facility] ([id number]) Comment: Performed By: #### UAMAC, UA NIGEL ####[address] [place] [address] MCHC mass conc (RBC) 34.0 32.0-36.0 % Normal 7 [facility] (09651) Comment: Performed By: #### UAMAC, UA NIGEL ####[address] [place] [address] MCV 89.2 79.0-98.0 fL Normal 01-23-2017 [facility] (68609) Comment: Performed By: #### UAMAC, UA NIGEL ####[address] [place] [address] Platelet mean volume (PMV) 10.6 7.4-10.4 fL High [facility] (57497) Comment: Performed By: #### UAMAC, UA NIGEL ####[address] [place] [address] Platelets 140 140-440 10*3/uL Normal 01-23-2017 [facility] (09761) Comment: Performed By: #### UAMAC, UA NIGEL ####[address] [place] [address] WBC (Leukocytes) 5.2 3.6-10.7 10*3/uL Normal 01-23-2017 [facility] (25390) Comment: Performed By: #### UAMAC, UA NIGEL ####[address] [place] [address] glucose,bedside on 2017-01-23 Glucose mass conc 104 70-100 mg/dL High 01-23-2017 [facility] (21762) Comment: Result Comment: Test perform ed by glucose meter. Results may be 10%-15% lowerthan serum/plasma value s. (CLIA ID [id number]) Performed By: #### BGLU #### [address] [place] [address] Glucose mass conc 98 70-100 mg/dL Normal 01-23-2017 [facility] (71795) Comment: Result Comment: Test perform ed by glucose meter. Results may be 10%-15% lowerthan serum/plasma value s. (CLIA ID [id number]) Performed By: #### UAMAC, UA NIGEL ####[address] [place] [address] Glucose mass conc 90 70-100 mg/dL Normal 01-23-2017 [facility] (34377) Comment: Result Comment: Test perform ed by glucose meter. Results may be 10%-15% lowerthan serum/plasma value s. (CLIA ID [id number]) Performed By: #### UAMAC, UA NIGEL ####[address] [place] [address] Glucose mass conc 98 70-100 mg/dL Normal 01-23-2017 [facility] (72736) Comment: Result Comment: Test perform ed by glucose meter. Results may be 10%-15% lowerthan serum/plasma value s. (CLIA ID [id number]) Performed By: #### UAMAC, UA NIGEL ####[address] [place] [address] basic metabolic panel on 2017-01-23 Anion gap 9 mmol/L Normal 01-23-2017 [facility] (43216) Comment: Performed By: #### UAMAC, UA NIGEL ####[address] [place] [address] Creatinine 1.13 0.55-1.40 mg/dL Normal 01-23-2017 [facility] (38625) Comment: Performed By: #### UAMAC, UA NIEGL ####[address] [place] [address] eGFR (black) 57.1 >60 mL/min Normal 01-23-2017 [facility] (41657) Comment: Performed By: #### UAMAC, UA NIGEL ####[address] [place] [address] eGFR (non-black) 47.1 >60 mL/min Normal 01-23-2017 [facility] (61136) Comment: Result Comment: Source- MDRD equation with creatinine calibration to IDMS(NKDEP)eGFR not recommen ded for drug dose adjustment Performed By: #### UAMAC, UA NIGEL ####[address] [place] [address] Calcium 8.3 8.2-10.1 mg/dL Normal 01-23-2017 [facility] (62643) Comment: Performed By: #### UAMAC, UA NIGEL ####[address] [place] [address] CO2 21 21-32 mmol/L Normal 01-23-2017 [facility] (99682) Comment: Performed By: #### UAMAC, UA NIGEL ####[address] [place] [address] Glucose mass conc 93 70-100 mg/dL Normal 01-23-2017 [facility] (19817) Comment: Performed By: #### UAMAC, UA NIGEL ####[address] [place] [address] Urea nitrogen 24 7-25 mg/dL Normal 01-23-2017 [facility] (62784) Comment: Performed By: #### UAMAC, UA NIGEL ####[address] [place] [address] Chloride 113 98-109 mmol/L High 01-23-2017 [facility] (55042) Comment: Performed By: #### UAMAC, UA NIGEL ####[address] [place] [address] Potassium molar conc 3.8 3.5-5.1 mmol/L Normal 7 [facility] (83260) Comment: Performed By: #### UAMAC, UA NIGEL ####[address] [place] [address] Sodium 143 135-145 mmol/L Normal 01-23-2017 [facility] (00796) Comment: Performed By: #### UAMAC, UA NIGEL ####[address] [place] [address] vitamin b12 on 2016 Cobalamins (Vitamin B12) 425 193-986 pg/mL Normal 01-22 [facility] (58219) Comment: Performed By: #### HEMDF, PT /AP, CMP3, TSH4, B12, BNP3, RPR ####[address] [place] [address] urinalysis,microscopic on 2017-01-22 Urine, bacteria in present Negative Normal 01-22-2017 [facility] sediment (30007) Comment: Result Comment: unable to qu antitate due to large amount of wbc's Performed By: #### UAMAC, UA NIGEL ####[address] [place] [address] Urine, epithelial cells see wbc comment 3-5 Normal 01-22-2017 [facility] in sediment (52330) Comment: Performed By: #### UAMAC, UA NIGEL ####[address] [place] [address] Urine, erythrocytes in see wbc comment 0-2 Normal 0 01-22-2017 [facility] sediment by area (00 000) Comment: Performed By: #### UAMAC, UA NIGEL ####[address] [place] [address] Urine, leukocytes in see below 0-5 Normal 7 [facility] sedmiment (03968) Comment: Result Comment: Grossly load ed, unable to identify any other formed elements. Performed By: #### UAMAC, UA NIGEL ####[address] [place] [address] urinalysis,macro on 2017-01-22 Bilirubin (direct) NEG Negative mg/dL Normal 01-22-2017 [facility] (23882) Comment: Performed By: #### UAMAC, UA NIGEL ####[address] [place] [address] Ketone,Urine NEG Negative Normal 01-22-2017 [facility] (13770) Comment: Performed By: #### UAMAC, UA NIGEL ####[address] [place] [address] Occult Blood,Ur 250 Negative {RBC}/uL Normal 01-22-2017 [facility] (79833) Comment: Performed By: #### UAMAC, UA NIGEL ####[address] [place] [address] Specific [place],Urine 1.025 1.005-1.030 Normal 01-22 [facility] (22690) Comment: Performed By: #### UAMAC, UA NIGEL ####[address] [place] [address] Total Protein,Urine 150 Negative mg/dL Normal 01-22-2017 [facility] (31961) Comment: Performed By: #### UAMAC, UA NIGEL ####[address] [place] [address] Urine, appearance cloudy Clear Normal 01-22-2017 [facility] (46244) Comment: Performed By: #### UAMAC, UA NIGEL ####[address] [place] [address] Urine, color yellow Lt. Yellow Normal 01-22-2017 [facility] (88636) Comment: Performed By: #### UAMAC, UA NIGEL ####[address] [place] [address] Urine, glucose presence NORM Negative Normal 2016 [facility] (24540) Comment: Performed By: #### UAMAC, UA NIGEL ####[address] [place] [address] Urine, nitrite presence NEG Negative Normal 2016 [facility] (41495) Comment: Performed By: #### UAMAC, UA NIGEL ####[address] [place] [address] Urine, pH 5.0 5.0-8.0 [pH] Normal 01-22-2017 [facility] (81568) Comment: Performed By: #### UAMAC, UA NIGEL ####[address] [address] Urine, urobilinogen NORM 0-1 Normal 01-22-2017 [facility] (39813) Comment: Performed By: #### UAMAC, UA NIGEL ####[place] [address] WBC (Leukocytes) 2+ Negative Normal 01-22-2017 [facility] (13878) Comment: Performed By: #### UAMAC, UA NIGEL ####[place] [address] thyroid stim. hormone on 2017-01-22 Thyroid Stim. Hormone 1.470 0.358-3.740 uU/mL Normal 2016 [facility] (73499) Comment: Performed By: #### HEMDF, PT /AP, CMP3, TSH4, B12, BNP3, RPR ####[address] [address] protime on aPTT 24.2 20.0-30.5 s Normal 01-22-2017 [facility] (89320) Comment: Result Comment: NOTE: The th erapeutic time for Heparin anticoagulation,based on Xa activity inhibition, i s an APTT of 46-80seconds. Performed By: #### HEMDF, PT /AP, CMP3, TSH4, B12, BNP3, RPR ####[address] [address] INR Coag RelTime (PPP) 1.0 0.9-1.1 {INR} Normal 017 [facility] (08865) Comment: Result Comment: Recommended Anticoagulant Therapy:SEE BELOW----- INR of 2.0 - 3.0 :- Prophylaxis of Veno us Thrombosis (high-risk surgery)- Treatment of Venous Thrombosis- Treatment of Pulmonary Embolism (Includes tissue heartvalves, Acute Myocardia l Infarction to prevent systemicembolism, Valvular Heart Disease, and Atrial Fibrillation)----- INR of 2.5 - 3.5 :- Mechanical Prosthetic Valves (high risk)- If oral anticoagulant therapy is used to preventMyocardial In farction Performed By: #### HEMDF, PT /AP, CMP3, TSH4, B12, BNP3, RPR ####[address] [address] Prothrombin time (PT) Coag 10.1 9.0-12.0 s Normal [facility] time (PPP) (53302) Comment: Result Comment: . Performed By: #### HEMDF, PT /AP, CMP3, TSH4, B12, BNP3, RPR ####[address] [address] nt pro bnp on 01-22 BNP 352 0-125 pg/mL High 01-22-2017 [facility] (73394) Comment: Performed By: #### HEMDF, PT /AP, CMP3, TSH4, B12, BNP3, RPR ####[address] [address] hemogram w/ autodiff on 2017-01-22 Abs Baso Cnt 0.0 0.0-0.2 10*3/uL Normal 01-22-2017 [facility] (53180) Comment: Performed By: #### HEMDF, PT /AP, CMP3, TSH4, B12, BNP3, RPR ####[address] [place] [address] Basophils/100 WBC Auto (Bld) 0.5 % Normal 0 01-22-2017 [facility] (47946) Comment: Performed By: #### HEMDF, PT /AP, CMP3, TSH4, B12, BNP3, RPR ####[address] [facility] [address] Eosinophils 0.2 0.0-0.5 10*3/uL Normal 01-22-2017 [facility] (59672) Comment: Performed By: #### HEMDF, PT /AP, CMP3, TSH4, B12, BNP3, RPR ####[address] [place] [facility] [place] [address] Eosinophils/100 leukocytes 5.2 % Normal [facility] (56278) Comment: Performed By: #### HEMDF, PT /AP, CMP3, TSH4, B12, BNP3, RPR ####[address] [place] [address] Granulocytes/100 WBC (Bld) 61.8 % Normal [facility] (47577) Comment: Performed By: #### HEMDF, PT /AP, CMP3, TSH4, B12, BNP3, RPR ####[address] [place] [address] Lymphocytes 1.3 1.0-4.3 10*3/uL Normal 01-22-2017 [facility] (59771) Comment: Performed By: #### HEMDF, PT /AP, CMP3, TSH4, B12, BNP3, RPR ####[address] [place] [address] Lymphocytes/100 leukocytes 28.3 % Normal [facility] (90092) Comment: Performed By: #### HEMDF, PT /AP, CMP3, TSH4, B12, BNP3, RPR ####[address] [place] [address] Monocytes 0.2 0.0-0.8 10*3/uL Normal 01-22-2017 [facility] (19902) Comment: Performed By: #### HEMDF, PT /AP, CMP3, TSH4, B12, BNP3, RPR ####[address] [place] [address] Monocytes/100 leukocytes 4.2 % Normal 01-22 [facility] (33593) Comment: Performed By: #### HEMDF, PT /AP, CMP3, TSH4, B12, BNP3, RPR ####[address] [place] [address] Neutrophils 2.9 1.8-7.0 10*3/uL Normal 01-22-2017 [facility] (80037) Comment: Performed By: #### HEMDF, PT /AP, CMP3, TSH4, B12, BNP3, RPR ####[address] [address] Erythrocyte distribution 13.8 11.5-14.5 % Normal 01-22 [facility] width Auto Ratio (RBC) (72848) Comment: Performed By: #### HEMDF, PT /AP, CMP3, TSH4, B12, BNP3, RPR ####[address] [address] Erythrocytes (RBC) 3.63 3.80-5.20 10*6/uL Low 01-22-2017 [facility] (29544) Comment: Performed By: #### HEMDF, PT /AP, CMP3, TSH4, B12, BNP3, RPR ####[address] [place] [address] Hematocrit (HCT) 32.5 35.0-47.0 % Low 01-22-2017 [facility] (92901) Comment: Performed By: #### HEMDF, PT /AP, CMP3, TSH4, B12, BNP3, RPR ####[address] [address] Hemoglobin mass conc (Bld) 11.2 11.7-16.0 g/dL Low [facility] (42451) Comment: Performed By: #### HEMDF, PT /AP, CMP3, TSH4, B12, BNP3, RPR ####[address] [place] [address] MCH 30.8 26.0-34.0 pg Normal 01-22-2017 [facility] (06570) Comment: Performed By: #### HEMDF, PT /AP, CMP3, TSH4, B12, BNP3, RPR ####[address] [address] MCHC mass conc (RBC) 34.4 32.0-36.0 % Normal 7 [facility] (96699) Comment: Performed By: #### HEMDF, PT /AP, CMP3, TSH4, B12, BNP3, RPR ####[address] [address] MCV 89.6 79.0-98.0 fL Normal 01-22-2017 [facility] (02336) Comment: Performed By: #### HEMDF, PT /AP, CMP3, TSH4, B12, BNP3, RPR ####[address] [address] Platelet mean volume (PMV) 10.1 7.4-10.4 fL Normal [facility] (73846) Comment: Performed By: #### HEMDF, PT /AP, CMP3, TSH4, B12, BNP3, RPR ####[address] [address] Platelets 143 140-440 10*3/uL Normal 01-22-2017 [facility] (62616) Comment: Performed By: #### HEMDF, PT /AP, CMP3, TSH4, B12, BNP3, RPR ####[address] [address] WBC (Leukocytes) 4.6 3.6-10.7 10*3/uL Normal 01-22-2017 [facility] (80700) Comment: Performed By: #### HEMDF, PT /AP, CMP3, TSH4, B12, BNP3, RPR ####[address] [place] [address] glucose,bedside on 2017-01-22 Glucose mass conc 136 70-100 mg/dL High 01-22-2017 [facility] (91111) Comment: Result Comment: Test perform ed by glucose meter. Results may be 10%-15% lowerthan serum/plasma value s. (CLIA ID [id number]) Performed By: #### UAMAC, UA NIGEL ####[address] [place] [address] Glucose mass conc 153 70-100 mg/dL High 01-22-2017 [facility] (73073) Comment: Result Comment: Test perform ed by glucose meter. Results may be 10%-15% lowerthan serum/plasma value s. (CLIA ID [id number]) Performed By: #### UAMAC, UA NIGEL ####[address] [place] [address] culture urine on 02-02-06 CULTURE Specimen Source Comment:Urine, clean catch Normal 01-22-2017 [facility] URINE [facility] Patient name: Desmond RESENDIZ MNguyenR.N.: [id number] : 1945 System Age: 71 Sex: F Ord. ([id number]) Physician: SANAM BARAHONA Location: [address] [place] [address] Copy to: SANAM BARAHONA Adm. Date: 01/22/17 MICROBIOLOGYORDER#: [id number] COLLECTED: 01/22/17 12:10SOURCE: Urine RECEIVED: 01/22/17 12:24 OE C O M M E N T S Specimen Source Comment:Urine, clean catchCULTURE URINE FINAL 01/23/17 15:00>100,000 CFU/ml [facility] kefyr Comment: Performed By: #### UAMAC, UA NIGEL ####[address] [address] [address] head or brain w/o contrast on 2017-01-22 CT Head or Brain Patient Name: BABAK, Lucien 0 01-22-2017 [place] w/o Contrast [facility] ([id number]) CT Exam Date/Time 01/22/2017 12:42:[address] Head or Brain w/o Contrast Ordering Physician MD BARAHONA JACOB A Accession Number [id number] CPT4 Codes 56025 () Reason For Exam Altered mental status Report Study: CT brain Clinical indication: Change in mental status COMPARISON: None Findings: Routine axial imaging of the head without contrast shows no hemorrhage, mass , acute infarct or edema. Atrophy and degenerative periventricular white matter changes suspected. Visualized portions of the sinuses show no air-fluid levels. Impression: No acute brain process seen. Comparison to available outside studies recommended when feasible.. Report Dictated on Final Dictated: 01/22/2017 1:07 pm Dictating Physician: MD CANDELARIO JOHN Signed Date and Time: 01/22/2017 1:09 pm Signed by: MD CANDELARIO JOHN Transcribed Date and Time: 01/22/2017 1:07 ct abdomen/pelvis w/o contrast on 2017-01-22 CT Abdomen/Pelvis w/o Patient Name: BABAK, Lucien 01-22-2017 [facility] Contrast [facility] ([id number]) CT Exam Date/Time 01/22/2017 12:44:[address] Abdomen/Pelvis (No PO, No IV) Ordering Physician HERMES GARNETT Accession Number [id number] CPT4 Codes 24400 (CT Abdomen/Pelvis (No PO, No IV)) Reason For Exam FLANK PAIN, STONE DISEASE SUSPECTED Report Indication: Flank pain. Stone disease suspected. Left stent. FINDINGS: Unenhanced abdomen and pelvis performed. Bowel pattern consistent with constipation. No free air free fluid abscess diverticulitis or appendicitis. Diverticulosis evident. No acute process of liver, the pancreas, the spleen or right kidney. There is left hydronephrosis. Left double-J stent in apparent appropriate position. Previously seen left UVJ calculus not appreciated. Lung bases clear of infiltrate. No spinal compression. Stable degenerative changes especially L4-L5 and L5-S1. IMPRESSION: Left ureteral stent in apparent appropriate position. Persistent left hydronephrosis. Report Dictated on Final Dictated: 01/22/2017 1:04 pm Dictating Physician: MD CANDELARIO JOHN Signed Date and Time: 01/22/2017 1:07 pm Signed by: MD CANDELARIO JOHN Transcribed Date and Time: 01/22/2017 1:04 comp metabolic panel on 2017-01-22 Alkaline phosphatase (ALP) 77 45-117 U/L Normal [facility] (88752) Comment: Performed By: #### HEMDF, PT /AP, CMP3, TSH4, B12, BNP3, RPR ####[address] [address] Bilirubin (total) 0.6 0.2-1.0 mg/dL Normal 01-22-2017 [facility] (80994) Comment: Performed By: #### HEMDF, PT /AP, CMP3, TSH4, B12, BNP3, RPR ####[address] [address] Protein 7.0 6.4-8.2 g/dL Normal 01-22-2017 [facility] (21597) Comment: Performed By: #### HEMDF, PT /AP, CMP3, TSH4, B12, BNP3, RPR ####[address] [address] Alanine aminotransferase (ALT) 35 12-78 U/L Normal 01-22-2017 [facility] (50526) Comment: Performed By: #### HEMDF, PT /AP, CMP3, TSH4, B12, BNP3, RPR ####[address] [place] [address] Anion gap 9 mmol/L Normal 01-22-2017 [facility] (86717) Comment: Performed By: #### HEMDF, PT /AP, CMP3, TSH4, B12, BNP3, RPR ####[address] [place] [address] Aspartate aminotransferase (AST) 10 15-37 U/L Low 01-22-2017 [facility] (70619) Comment: Performed By: #### HEMDF, PT /AP, CMP3, TSH4, B12, BNP3, RPR ####[address] [address] Creatinine 1.19 0.55-1.40 mg/dL Normal 01-22-2017 [facility] (60839) Comment: Performed By: #### HEMDF, PT /AP, CMP3, TSH4, B12, BNP3, RPR ####[address] [address] eGFR (black) 53.8 >60 mL/min Normal 01-22-2017 [facility] (24661) Comment: Performed By: #### HEMDF, PT /AP, CMP3, TSH4, B12, BNP3, RPR ####[address] [address] eGFR (non-black) 44.4 >60 mL/min Normal 01-22-2017 [facility] (38037) Comment: Result Comment: Source- MDRD equation with creatinine calibration to IDIN(NKDEP)eGFR not recommen ded for drug dose adjustment Performed By: #### HEMDF, PT /AP, CMP3, TSH4, B12, BNP3, RPR ####[address] [address] Albumin 3.2 3.4-5.0 g/dL Low 01-22-2017 [facility] (96651) Comment: Performed By: #### HEMDF, PT /AP, CMP3, TSH4, B12, BNP3, RPR ####[place] [address] [place] [address] Urea nitrogen 24 7-25 mg/dL Normal 01-22-2017 [facility] (46495) Comment: Performed By: #### HEMDF, PT /AP, CMP3, TSH4, B12, BNP3, RPR ####[address] [place] [address] Calcium 8.7 8.2-10.1 mg/dL Normal 01-22-2017 [facility] (91712) Comment: Performed By: #### HEMDF, PT /AP, CMP3, TSH4, B12, BNP3, RPR ####[address] [place] [address] CO2 22 21-32 mmol/L Normal 01-22-2017 [facility] (24824) Comment: Performed By: #### HEMDF, PT /AP, CMP3, TSH4, B12, BNP3, RPR ####[address] [place] [address] Glucose mass conc 184 70-100 mg/dL High 01-22-2017 [facility] (81695) Comment: Performed By: #### HEMDF, PT /AP, CMP3, TSH4, B12, BNP3, RPR ####[place] [address] [place] [address] Chloride 112 98-109 mmol/L High 01-22-2017 [facility] ([id number]) Comment: Performed By: #### HEMDF, PT /AP, CMP3, TSH4, B12, BNP3, RPR ####[place] [address] [place] [address] Potassium molar conc 3.8 3.5-5.1 mmol/L Normal 7 [facility] ([id number]) Comment: Performed By: #### HEMDF, PT /AP, CMP3, TSH4, B12, BNP3, RPR ####[place] [address] [place] [address] Sodium 143 135-145 mmol/L Normal 01-22-2017 [facility] ([id number]) Comment: Performed By: #### HEMDF, PT /AP, CMP3, TSH4, B12, BNP3, RPR ####[address] [place] [address] Encounters Date Type Reason Provider Location 12-04-2017 - Ambulatory Left bundle-branch [facility] M[facility] 12-05-2017 block, unspecified [facility] [place] [facility] ([id number]) [facility]IG[facility] 08-14-2017 - Ambulatory [facility] 08-14-[address] [facility] [address] ([id number]) 06-23-2017 Ambulatory [facility] (0 0000) 02-19-2017 Ambulatory Type 2 diabetes KEVIN PAGE [facility] mellitus with SANAM A JUN SANAM System ( [id number]) unspecified A [facility] complications 02-18-2017 Ambulatory Major depressive SANAM A JUN SANAM [facility] disorder, single A [facility] (22953) episode, unspecified 02-18-2017 Ambulatory Edema, unspecified Luke Hashiguchi [facility]NAM A JUN SANAM System (0 0000) A [facility] 02-10-2017 Ambulatory [facility] A JUN SANAM System (0 0000) A [facility] 02-06-2017 Ambulatory Paroxysmal atrial Mitsuyo Koh[facility] SANAM A JUN SANAM System (0 0000) A [facility] 01-28-2017 Ambulatory Vascular dementia KEVIN PAGE [facility] alth without behavioral SANAM A JUN SANAM Sys tem (74514) disturbance A [facility] 01-23-2017 Ambulatory Encounter for fitting Hermes Andres SANAM S [facility] Health and adjustment of A JUN SANAM A System ( [address]102) urinary device [facility] 01-22-2017 Ambulatory Calculus of ureter Tyrone MARION [facility] A JUN SANAM A System (16764 ) [facility] 08-06-2018 Patient encounter [facility] Facility :[facility] 03-03-2018 Patient encounter [facility] Facility :[facility] Payers Payer Name Policy Number Location [employer] [id number] [facility] MEDICARE ([id number]) [facility] ([id number]) [facility] [id number] [facility] ([id number]) [id number] [facility] ([id number]) [id number] [facility] ([id number]) [id number] [facility] ([id number]) The following information is from the original human readable contentNo Payer Records FoundNo Payer Records FoundNo Payer Records FoundNo Payer Records FoundNo Payer Records Found Summary Purpose Family History No Family History Records FoundNo Family History Records FoundNo Family History Records FoundNo Family History Records FoundNo Family History Records Found Advance Directives No Advanced Directives Records FoundNo Advanced Directives Records FoundNo Advanced Directives Records FoundNo Advanced Directives Records FoundNo Advanced Directives Records Found Additional Source Comments FOR RECORDS PERTAINING TO PATIENTS WHO ARE OR HAVE BEEN ENROLLED IN A CHEMICAL DEPENDENCY/SUBSTANCE ABUSE PROGRAM, SOME INFORMATION MAY BE OMITTED. This clinical summary was aggregated from multiple sources. Caution should be exercised in using it in the provision of clinical care. This summary normalizes information from multiple sources, and as a consequence, information in this document may materially changethe coding, format and clinical context of patient data. In addition, data may be omittedin some cases. CLINICAL DECISIONS SHOULD BE BASED ON THE PRIMARY CLINICAL RECORDS. [facility] provides no warranty or guarantee of the accuracy or completeness of information in this document. UNRECOGNIZED CONTENT PROVIDED BELOW FOR UNRECOGNIZED SECTION INFORMATION SOURCE DATE CREATED AUTHOR AUTHOR'S ORGANIZATIO N 01/06/2018 [facility] CREATED AUTHOR AUTHOR'S ORGANIZATIO N 01/12/2018 [facility] DATE CREATED AUTHOR AUTHOR'S ORGANIZATIO N 01/13/2018 [facility] DATE CREATED AUTHOR AUTHOR'S ORGANIZATIO N 10/23/2018 [facility] DATE CREATED AUTHOR AUTHOR'S ORGANIZATIO N 02/23/2019 [facility]
--- OUTSIDE RECORDS SUMMARY | 2020-05-01 18:31 | XMS RPT_ITS | CCD ---
:1945 External Reference #:[id number] Author Organization [facility] Care Team Providers Name Role Phone KAITLIN, [...] Onset Location colchicine Translations: AOF 11-13-2011 - [facility] Other [ COLCHICINE, COLCHICINE] Ca mpus Repository Problems Active Problems Category Problem Name Status Date Location Cardiac dysrhythmias Paroxysmal atrial Active 02-06-2017 - [facility] Health fibrillation System (72304) Conduction disorders Left bundle-branch Active 08-14-2017 - [facility] block, unspecified Medical C enter (55428) Congestive heart Heart failure, Active 02-06-2017 - [facility] lt failure; nonhypertensive unspecified Sys tem (01459) Coronary atherosclerosis Atherosclerotic heart Active 017 - [facility] Health and other heart disease disease of [place] System (98070) coronary artery without angina pectoris Delirium, dementia Vascular dementia with Active 01-23-2017 [facility] amnestic and other behavioral disturbance System (04963) cognitive disorders Diabetes mellitus with Type 2 diabetes mellitus Active 2016 [facility] Health complications with unspecified System (00 000) complications Diabetes mellitus Type 2 diabetes mellitus Active 02-06-2017 [facility] Health without complication without complications System (62541) Genitourinary symptoms Encounter for fitting Active [facility] Health and ill-defined and adjustment of System (54128) conditions urinary device Heart valve disorders Nonrheumatic mitral Active 02-06-2017 [facility] Health (valve) insufficiency System (16859) Hypertension with Hypertensive heart Active 01-23-2017 [facility] Health complications and disease with heart Syst em (82255) secondary hypertension failure Mood disorders Major depressive Active 02-18-2017 [facility] disorder, single System (000 00) episode, unspecified Nutritional deficiencies Vitamin D deficiency, Active [facility] Health unspecified System (99858) Osteoarthritis Unspecified Active 02-06-2017 [facility] osteoarthritis, System (0000 0) unspecified site Other nervous system Other symptoms and signs Active 01-24-20 [facility] Health disorders involving cognitive System ( 08422) functions and awareness Thyroid disorders Hypothyroidism, Active 02-19-2017 [facility] ealth unspecified System (60460) Past or Other Problems Category Problem Name Status Date Location Administrative/social Homelessness Completed 02-19-2017 [facility] Health admission System (11012) Allergic reactions Allergy status to Completed 02-06-2017 [facility] Health other drugs, System (09196) medicaments and biological substances status Calculus of urinary Calculus of ureter Completed 01-22-2017 [facility] Health tract System (60564) Malaise and fatigue Other malaise Completed 02-19-2017 [facility] H ealth System (08820) Other aftercare detention (current) Completed 02-19-2017 [facility] use of insulin System (98281 ) Other connective Other specified soft Completed 02-06-2017 [facility] tissue disease tissue disorders System (0 0000) Pulmonary heart Other pulmonary Completed 02-18-2017 [facility] disease embolism without acute Syste m (53161) cor pulmonale Unclassified Edema, unspecified Completed 01-23-2017 - [facility] System (86947) Results Result Name Value Range Unit Interpretation Flag Date Location urine culture on 07-03-02 Bacteria identified Sp. Request/Comment: - Presu rgical Sterilization Specimen received in preservative Normal 02-18-2019 [facility] Cx Nom (U) Chauhan (19354) Culture Result - No growth (<100 CFU/ml) Comment: Performed By: #### URCUL ### #[facility] [id number] [place], [place] [phone] progress on 2019-02 PROGRESS HNO ID: [id number] Normal 02-18-2019 [facility] Author: Jakub Aranda) Ania [place] ([id number]) Service: ? Author Type: Physician Clinical Research Manager Type: Progress Notes Filed: 02/22/2019 7:51 PM Note Text: On License Of [facility] PATIENT INFO: Abbey Resendiz 73 year old [facility] # [id number] PCP: Jony Wills MD Referred by: Self [...] prob lems. No history of angina, CHF, ME, cardiac surgery of stents. Respiratory: Negative for [...] s. Neurologic: No history of TIA's, stroke, CASH RECONCILIATION SPECIALIST tumor, impaired sensorium, hemiplegia, paraplegia or quadriplegia. [...] CNOV Office Visit (UROLWS) Normal 02-19-20 19 [facility] ABBEY RESENDIZ ([id number]) 1945 F [place] Date Time Provider Department (84339) 02/18/19 9:30 AM JAKUB ESTRELLA) UROLWS During your visit today, we recorded the following informati on about you: Pulse Blood pressure Weight Height 54/minute 145/87 78 kg 1.524 m GERMAIN Magdaleno 02/22/2019 7:51 PM Signed On License Of [facility] PATIENT INFO: Abbey Resendiz 73 year old [facility] # [id number] PCP: Jony Wills MD Referred by: Self [...] prob lems. No history of angina, CHF, ME, cardiac surgery of stents. Respiratory: Negative for [...] s. Neurologic: No history of TIA's, stroke, CASH RECONCILIATION SPECIALIST tumor, impaired sensorium, hemiplegia, paraplegia or quadriplegia. [...] Upset Date Reviewed: 02/18/2019 Reviewed by: Jakub Esrtella (Pa) - Fully Assessed Reason for Visit: New Patient [172] UTI [116] Primary Visit Diagnosis:Recurrent UTI [N39.0] Order(s):UA DIP, URINE (POC) [4134298] Order #: [id number] . #:[id number] [] sulfamethoxazole-trimethoprim (BACTRIM DS) 800-160 mg per tabletTake 1 tablet by mouth twice daily for 3 days.Disp: 6 tabletRfl: 0 URINE CULTURE [SQURCUL] Order #: [id number] FUTURE Prescriptions as of 02/18/2019 Sig: FLONASE [...] 02/22/19 progress on 2018-11 PROGRESS HNO ID: [id number] Normal 12-15-2018 [facility] Author: Lawson Chauhan ([id number]) Service: ? Author Type: Physician Type: Progress Notes Filed: 12/15/2018 2:05 PM Note Text: PERTINENT CARDIAC HISTORY LBBB HTN HL DM PAF? ASHD? CHF? ADHERENCE TO GUIDELINES SONIA-I or ARB for HF with prior LVEF<40 (NQF 0081) - N/A ASA or Plavix for ASHD (NQF 0067) - N/A Beta zara for ASHD with prior ME or prior LVEF<40 (NQF 00 70) - [...] checked. She would like to follow-up with [facility] and we will assist her [...] EKG1 NAME : ABBEY RESENDIZ Normal 12-16-19 [facility] PID : [id number] Vic aparicio ([id number]) : 1945 Gender : Female Race : [...] ms QTC Calculation(Bezet) : 501 ms P [place] : 22 degrees R [place] : -43 degrees T [place] : 107 degrees Test Reason : Location : 136 : [facility] Overread By : LAWSON AMDRIGAL MD Edited By : LAWSON MADRIGAL MD Referred By : LAWSON MADRIGAL Acquired by : jyoti ÁLVAREZ on 2018-12-15 CNOV Office Visit (CAWSTR) Normal 12-16-19 [place] [facility] ABBEY RESENDIZ ([id number]) 1945 F [facility] Time Provider Department (11486) 12/15/18 2:00 PM LAWSON MADRIGAL E CAWSTR [...] N/A Beta zara for ASHD with prior ME or prior LVEF<40 (NQF 00 70) - [...] checked. She would like to follow-up with [facility] and we will assist her [...] followi ng areas and commit to making director long term care changes. EAT A WHOLE FOOD, PLANT BASED [...] in your area. Referring Provider: LAWSON MADRIGAL [[id number]] Allergies As of Date: 12/15/2018 Noted Allergy Reaction COLCHICINE 11/13/2011 8 - GI Upset Date Reviewed: 12/15/2018 Reviewed by: Jose Cummings RN - Fully Assessed Reason for Visit: Recheck [92] Primary Visit Diagnosis:PAF (paroxysmal atrial fibrillation) (HCC) [I48.0] Other Visit Diagnosis:ASHD (arteriosclerotic heart disease) [I25.10] Order(s):ECG COMPLETE [ECG01] Order #: [id number] FUTURE BASIC METABOLIC PNL [SQBMP] Order #: [id number] FUTURE Prescriptions as of 12/15/2018 Sig: ATORVASTATIN [...] the following areas and commit to making director long term care changes. EAT A WHOLE FOOD, PLANT BASED [...] LAWSON MADRIGAL MD on 12/15/18 cnnurse on [facility] Nurse Visit (CAWSTR) Normal 9 [place] ABBEY Rodriguez ([id number]) 1945 F [place] Date Time Provider Department (25058) 12/15/18 4:00 PM NURSE CARD ADMIN [facility] WSTR CAWSTR During your visit today, we recorded the following informati on about you: Jose Cummings RN 12/15/2018 3:38 PM Signed Ekg completed per order. Pt tolerated procedure without dist ress. Jose Cummings RN Referring Provider: LAWSON MADRIGAL [[id number]] Allergies As of Date: 12/15/2018 Noted Allergy Reaction COLCHICINE 11/13/2011 8 - GI Upset Date Reviewed: 12/15/2018 Reviewed by: Jose Cummings RN - Fully Assessed Reason for Visit: Nurse Visit [792] Visit Diagnoses:PAF (paroxysmal atrial fibrillation) (HCC) [ I48.0] ASHD (arteriosclerotic heart disease) [I25.10] Order(s):ECG COMPLETE [ECG01] Order #: [id number] Prescriptions as of 12/15/2018 Sig: ATORVASTATIN 40 [...] TSH Qn 2.240 0.400-5.500 uU/mL Normal 06-21-2018 [facility] (94947) Comment: Performed By: #### TSH #### [facility] [address] [place], [place] [address] progress on 2018-06 PROGRESS HNO ID: [id number] Normal 06-21-2018 [facility] Author: Lawson Madrigal [place] ([id number]) Service: (none) Author Type: Physician Type: Progress Notes Filed: 06/21/2018 4:11 PM Note Text: PERTINENT CARDIAC HISTORY BBB HTN HL DM PAF? ASHD? CHF? ADHERENCE TO GUIDELINES SONIA-I or ARB for HF with prior LVEF<40 (NQF 0081) - N/A ASA or Plavix for ASHD (NQF 0067) - N/A Beta zara for ASHD with prior ME or prior LVEF<40 (NQF 00 70) - [...] Magnesium [Mass/Vol] 1.7 1.7-2.3 mg/dL Normal 8 [facility] (65369) cnov on 2018-06-21 CNOV Office Visit (CAWSTR) Normal 06-21-20 18 [place] [facility] ABBEY RESENDIZ ([id number]) 1945 F [place] Date Time Provider Department (50923) 06/21/18 1:45 PM LAWSON MADRIGAL CAWSTR During [...] N/A Beta zara for ASHD with prior ME or prior LVEF<40 (NQF 00 70) - [...] followi ng areas and commit to making assisted changes. EAT A WHOLE FOOD, PLANT BASED [...] in your area. Referring Provider: LAWSON MADRIGAL [[id number]] Allergies As of Date: 06/21/2018 Noted Allergy Reaction COLCHICINE 11/13/2011 8 - GI Upset Date Reviewed: 06/21/2018 Reviewed by: Tressa Ontiveros MA - Fully Assessed Reason for Visit: Established Patient [175] Primary Visit Diagnosis:PAF (paroxysmal atrial fibrillation) (HCC) [I48.0] Other Visit Diagnosis:Essential hypertension [I10] Order(s):BASIC METABOLIC PNL [SQBMP] Order #: [id number] FUT URE TSH BLD [SQTSH] Order #: [id number] FUTURE Prescriptions as of 06/21/2018 Sig: ATORVASTATIN [...] the following areas and commit to making assisted changes. EAT A WHOLE FOOD, PLANT BASED [...] 2018-06-21 Absolute nRBC <0.01 <0.01 Normal 06-21-2018 [facility] (49252) Comment: Performed By: #### CBC #### [facility] [address] [place], [place] [address] Erythrocyte distribution 13.2 11.5-15.0 % Normal 06-21 [facility] width (RBC) [Ratio] [place] (81698) Comment: Performed By: #### CBC #### [facility] [address] [place], [place] [address] Hematocrit (Bld) [Volume 43.5 36.0-46.0 % Normal 06-21 [facility] (54568) Comment: Performed By: #### CBC #### [facility] [address] [place] [address] Hemoglobin (Bld) 14.4 11.5-15.5 g/dL Normal 06-21-2018 [facility] [Mass/Vol] [place] (50935) Comment: Performed By: #### CBC #### [facility] [address] [place] [address] MCH (RBC) [Entitic mass] 33.0 26.0-34.0 pG Normal 06-21 [facility] (48391) Comment: Performed By: #### CBC #### [address] [address] MCHC (RBC) [Mass/Vol] 33.1 30.5-36.0 g/dL Normal 06-21-20 18 [facility] (90925) Comment: Performed By: #### CBC #### [address] [address] MCV (RBC) [Entitic vol] 99.8 80.0-100.0 fL Normal 06-21 [facility] (56730) Comment: Performed By: #### CBC #### [facility] [address] [place] [address] Platelet mean volume 12.3 9.0-12.7 fL Normal 8 [facility] (Bld) [Entitic vol] [place] (98385) Comment: Performed By: #### CBC #### [facility] [address] [place] [address] Platelets (Bld) [#/Vol] 194 150-400 k/uL Normal 2017 [facility] (85331) Comment: Performed By: #### CBC #### [facility] [address] [place], [place] [id number] RBC (Bld) [#/Vol] 4.36 3.90-5.20 m/uL Normal 06-21-2018 [facility] (60157) Comment: Performed By: #### CBC #### [facility] [address] [place] [address] WBC (Bld) [#/Vol] 8.37 3.70-11.00 k/uL Normal 06-21-2018 [facility] (99265) Comment: Performed By: #### CBC #### [facility] [address] [place], [place] [address] basic metabolic panl on 2018-06-21 Anion gap [Moles/Vol] 12 mmol/L Normal 06-21-20 18 [facility] (70783) Calcium [Mass/Vol] 9.6 8.5-10.2 mg/dL Normal 06-21-2018 [facility] (72935) Chloride [Moles/Vol] 100 97-105 mmol/L Normal 8 [facility] (57431) CO2 [Moles/Vol] 23 22-30 mmol/L Normal 06-21-2018 [facility] (60963) Creatinine [Mass/Vol] 0.97 0.58-0.96 mg/dL High 06-21-20 18 [facility] (13961) eGFR- Amer. >60 Normal 06-21-2018 [facility] (59049) GFR/1.73 sq M predicted 56 . Normal 2017 [facility] among non-blacks MDRD [place] (07215) (S/P/Bld) [Vol rate/Area] Comment: Result Comment: eGFR [...] Glucose [Mass/Vol] 314 74-99 mg/dL High 06-21-2018 [facility] (76578) Potassium [Moles/Vol] 3.9 3.7-5.1 mmol/L Normal 06-21-20 18 [facility] (47580) Sodium [Moles/Vol] 135 136-144 mmol/L Low 06-21-2018 [facility] (34398) Urea nitrogen [Mass/Vol] 20 7-21 mg/dL Normal 06-21 [facility] (06976) progress on 2017-11 PROGRESS HNO ID: [id number]: Lawson jang 12-04-2017 Marni Chan: (none)Author Type: General PhysicianType: Progress NotesFiled: Medical 12/04/2017 5:18 PMNote Text:PERTINENT CARDIAC Center HISTORYLBBBHTNHLDMPAF?ASHD?CHF?ADHERENCE TO (41599) GUIDELINESACE-I or ARB for HF with prior LVEF<40 (NQF 0081) - N/AASA or Plavix for ASHD (NQF 0067) - N/ABeta zara for ASHD with prior ME or prior LVEF<40 (NQF 0070) - N/ABeta [...] valvular disease.Laboratory [facility] at the [facility]. She was advised toincrease her fluid intake. Follow-up basic profile is pending.Electronically Signed:Sera Parrish 2017 4:29 PMCC: Jony Wills MD cnov on 2017-12-04 CNOV Office Visit Normal 12-04-2017 Marni (AGCARDWST) ABBEY RESENDIZ ([id number]) 1945 F Date Time Provider Department12/04/17 3:00 PM LAWSON MADRIGAL [facility] During your visit today, we recorded the following information about you: Pulse Blood pressure Weight Cente r 62/minute 138/82 77.9 kgKenn freddy Madrigal MD 12/04/2017 5:18 PM SignedPERTINENT CARDIAC (00897) HISTORYLBBBHTNHLDMPAF?ASHD?C HF?ADHERENCE TO GUIDELINESACE-I or ARB for HF with prior LVEF<40 (NQF 0081) - N/AASA or Plavix for ASHD (N QF 0067) - N/ABeta zara for ASHD with prior ME or prior LVEF<40 (NQF 0070) - N/ABeta [...] to Continue Her Current Medication in the [place].I Will See Her in 8 Months [...] valvular disease.Laboratory studies were performed at the [facility]. She was advised toincrease her fluid [...] programs in your area.Referring Provider: LAWSON POPE [[id number]]Allergies As of Date: 12/04/2017 Noted Allergy ReactionCOLCHICINE [...] the following areas and commit to making director long term care changes. EAT A WHOLE FOOD, PLANT BASED [...] area.Follow-up and Dispositi on History RecordedEncounter Number: [id number] Status:Closed by LAWSON MADRIGAL MD on 12/04/17 progress on 2017-07 PROGRESS HNO ID: [id number]: Lawson jang 08-14-2017 Marni Chan: (none)Author Type: General PhysicianType: Progress NotesFiled: Medical 08/14/2017 5:58 PMNote Text:PERTINENT CARDIAC Center HISTORYLBBBHTNHLDMPAF?ASHD?CHF?ADHERENCE TO (40441) GUIDELINESACE-I or ARB for HF with prior LVEF<40 (NQF 0081) - N/AASA or Plavix for ASHD (NQF 0067) - N/ABeta zara for ASHD with prior ME or prior LVEF<40 (NQF 0070) - N/ABeta [...] of this note will be sent to [facility].Written and verbal health teaching given to patient, patient verbalizesunderstanding and agrees with treatment plan.This note was generated using Progressus voice recognition system, and theremay be some incorrect words, spellings, and punctuation that were notnoted in checking the note before saving.DIAGNOSIS FOR VISIT:CardiomegalyHISTORY OF PRESENT ILLNESSAbbey Resendiz is a 71-year-old woman who was seen in the office todayat the request of a nurse practitioner at [facility], who reports that she has cardiomegaly. No [...] year but states that she lives in [facility] cannot give me her address. She knows her date of ..Musculoskeletal: No joint deformities.EKG shows sinus rhythm with left bundle branch block. No prior EKGs areavailable.No recent labs are available. Prior LDL was 93 and renal function was lownormal.Electronically Signed:Lawson Madrigal MDAugust 14, 2017 5:48 [facility] J[facility] Wills MD cnov on 2017-08-14 CNOV Office Visit Normal 08-14-2017 Marni (AGCARDWST) ABBEY RESENDIZ ([id number]) 1945 F Date Time Provider Department08/14/17 1:00 PM LAWSON MADRIGAL [facility] During your visit today, we recorded the following information about you: Pulse Blood pressure Weight Cente r Height 80/minute 114/72 74.6 kg 1.524 Feliciano Madrigal MD 08/14/2017 5:58 PM SignedPERTINENT CARDIAC () HISTORYLBBBHTNHLDMPAF?ASHD?C HF?ADHERENCE TO GUIDELINESACE-I or ARB for HF with prior LVEFANDlt;40 (NQF 0081) - N/AASA or Plavix for ASHD (NQF 0067) - N/ABeta zara for ASHD with prior ME or prior LVEFANDlt;40 (NQF 0070) - N/ [...] of this note will be sent to [facility].Wri tten and verbal health teaching given to patient, patient verbalizesunderstanding and agrees with treatment plan.This note was generated using Progressus voice recognition system, and ther e may besome incorrect words, spellings, and punctuation that were not noted inchecking the note before s franci.DIAGNOSIS FOR VISIT:CardiomegalyHISTORY OF PRESENT ILLNESSAbbey Resendiz is a 71-year-old woma n who [facility] assisted dee woodward, [employer] that she has [...] year but states that she lives in [facility] cannot give me her address. She [...] to Dr. Wills's office.Referring Provider: JONY PACHECO [[id number]]Allergies As of Date: 08/14/2017 Noted Allergy ReactionCOLCHICINE 2 8 - GI UpsetDate Reviewed: 08/14/2017Reviewed by: Josafat (Rn) MIKAYLA Ames - Fully AssessedReason for Vis it: New Patient [172]Primary Visit Diagnosis:LBBB (left bundle branch block) [I44.7]Order(s):ECG B/O W IN TERP (MED OFFICE) [ECG06] Order #: [id number] ECHO [318623] Order #: [id number]: 1 FUTURE BASI C METABOLIC PNL [SQBMP] Order #: [id number] FUTURE CBC [SQCBC] Order #: [id number] FUTURE TSH BLD [S QTSH] Order #: [id number] FUTURE MAGNESIUM BLD [SQMG1] Order #: [id number] FUTUREPrescriptions as of Sig: FERROUS SULFATE 325 [...] following areas and comm it to making assisted changes. EAT A WHOLE FOOD, PLANT BASED [...] filed during this visit:Extended VitalsEncount er Number: [id number] Status:Closed by LAWSON MADRIGAL MD on 08/14/17 glucose,bedside on 2017-02-07 Glucose mass conc 107 70-100 mg/dL High 02-07-2017 [facility] (71452) Comment: Result Comment: Test perform ed by glucose meter. Results may be 10%-15% lowerthan serum/plasma value s. (CLIA ID [id number]) Performed By: #### HEMDF, PT /AP, CMP3, TSH4, B12, BNP3, RPR ####[address] [address] echo complete w/wo contrast on 2017-02-07 Echo Patient Name: ABBEY RESENDIZ [id number] Normal 02-07-2017 [facility] Complete Ultrasound Exam Date/T elyssa 02/07/2017 09:59:54 EDT Exam Echo Complete Health w/wo w/wo Contrast Ordering Physician MD WHYTE LORI Accession Number System Contrast [id number] Reason For Exam pulmonary embolus Report TRANSTHORACIC ([id number]) ECHOCARDIOGRAM PATIENT: Abbey Resendiz STUDY DATE: 2016 : 1945 [id number] AGE: 71 HT/WT: 152.4 cm (60 66.7 kg (146.7 in) lb) GENDER: F BP: 1 LOCATION: [facility] PATIENT Outpatient [facility] STATUS: *ORDERING PHYSICIAN: * Kandice Whyte *READING PHYSICIAN: * Arthur hendrickson MD *CYLINDER MACHINE OPERATOR PULP DRIER: * Edgar Antunez --- INDICATIONS: Pulmonary embolism. [...] Bilirubin Patient Name: ABBEY RESENDIZ FIN: [id number] Normal 02-06-2017 [facility] (total) Ultrasound Exam Date/Time 02/06/2017 10:43 :01 EDT Exam VL Venous Health Duplex US Lower Ext Bilateral Ordering Physician JENNY TSANG , [employer] Accession Number [id number] CPT4 Codes 53269 () Reason Fo r Exam edema, (22843) pain, elevated d-dimer Report [facility] --- Lower Extremity Venous Duplex Report Patient Name: Abbey Oliveros : 1945 Study 02/06/2017 (71yrs) Date: Age: 71 Account: [id number] Gender: F Loc: [facility] 5521 BP: Ordering: Nolvia Tsang Technologist: Antonio Lao n: Nolvia Tsang Doctor Of Optometry: Neli Shaw hysician: Safia Cloud --- Location: [facility] INDICATIONS: Edema b ilateral ankle and [...] DATA: [facility] Birth[facility]: Patient birthdate: 1945. Age: Patient is 71 yr old. Sex: Gender: female. Ethnicity: Ethnicity: white. Doppler flow [facility] including spectral analysis, color and solis scale imaging. Patient sta tus: Observation. Procedure: A vascular evaluation was perf ormed. The images were obtained using a [employer] E9 vascular ultrasound machine. --- VENOUS FLOW [...] +------ --+ Electronically signed by: Safia Cloud [id number]: 45 Final Dictated: 02/06/2017 10:57 am Dictating Physicia n: SAFIA CLOUD Signed Date and Time: 02/06/2017 10:56 am Signed by: SAFIA CLOUD urinalysis,microscopic on 2017-02-06 Urine, bacteria in Few (1-5) Negative Normal 02-06-2017 [facility] sediment (10343) Comment: Performed By: #### HEMDF, PT /AP, CMP3, TSH4, B12, BNP3, RPR ####[place] [address] [place] [address] Urine, epithelial cells in 0-2 3-5 Normal [facility] (56426) sediment Comment: Performed By: #### HEMDF, PT /AP, CMP3, TSH4, B12, BNP3, RPR ####[place] [address] [place] [address] Urine, erythrocytes in Negative 0-2 /[HPF] Normal 017 [facility] sediment by area (00 000) Comment: Performed By: #### HEMDF, PT /AP, CMP3, TSH4, B12, BNP3, RPR ####[place] [address] [place] [address] Urine, leukocytes in 11-25 0-5 Normal 7 [facility] sedmiment (59121) Comment: Performed By: #### HEMDF, PT /AP, CMP3, TSH4, B12, BNP3, RPR ####[place] [address] [place] [address] Urine, yeast presence in Few (1-5) Negative Normal 02-06 [facility] sediment (74504) Comment: Performed By: #### HEMDF, PT /AP, CMP3, TSH4, B12, BNP3, RPR ####[place] [address] [place] [address] urinalysis,macro on 2017-02-06 Bilirubin (direct) NEG Negative mg/dL Normal 02-06-2017 [facility] (80370) Comment: Performed By: #### HEMDF, PT /AP, CMP3, TSH4, B12, BNP3, RPR ####[place] [address] [place] [address] Ketone,Urine NEG Negative Normal 02-06-2017 [facility] (76015) Comment: Performed By: #### HEMDF, PT /AP, CMP3, TSH4, B12, BNP3, RPR ####[place] [address] [place] [address] Occult Blood,Ur NEG Negative Normal 02-06-2017 [facility] (84685) Comment: Performed By: #### HEMDF, PT /AP, CMP3, TSH4, B12, BNP3, RPR ####[place] [address] [place] [address] Specific Colora,Urine 1.005 1.005-1.030 Normal 02-06 [facility] (40279) Comment: Performed By: #### HEMDF, PT /AP, CMP3, TSH4, B12, BNP3, RPR ####[place] [address] [place] [address] Total Protein,Urine NEG Negative Normal 02-06-2017 [facility] (95049) Comment: Performed By: #### HEMDF, PT /AP, CMP3, TSH4, B12, BNP3, RPR ####[place] [address] [place] [address] Urine, appearance clear Clear Normal 02-06-2017 [facility] (19084) Comment: Performed By: #### HEMDF, PT /AP, CMP3, TSH4, B12, BNP3, RPR ####[place] [address] [place] [address] Urine, color p. yel Lt. Yellow Normal 02-06-2017 [facility] (68590) Comment: Performed By: #### HEMDF, PT /AP, CMP3, TSH4, B12, BNP3, RPR ####[place] [address] [place] [address] Urine, glucose presence NORM Negative Normal 2016 [facility] (46557) Comment: Performed By: #### HEMDF, PT /AP, CMP3, TSH4, B12, BNP3, RPR ####[place] [address] [place] [address] Urine, nitrite presence NEG Negative Normal 2016 [facility] (59093) Comment: Performed By: #### HEMDF, PT /AP, CMP3, TSH4, B12, BNP3, RPR ####[place] [address] [place] [address] Urine, pH 5.0 5.0-8.0 [pH] Normal 02-06-2017 [facility] (07601) Comment: Performed By: #### HEMDF, PT /AP, CMP3, TSH4, B12, BNP3, RPR ####[place] [address] [place] [address] Urine, urobilinogen NORM 0-1 Normal 02-06-2017 [facility] (78806) Comment: Performed By: #### HEMDF, PT /AP, CMP3, TSH4, B12, BNP3, RPR ####[place] [address] [place] [address] WBC (Leukocytes) 1+ Negative Normal 02-06-2017 [facility] (88475) Comment: Performed By: #### HEMDF, PT /AP, CMP3, TSH4, B12, BNP3, RPR ####[place] [address] [place] [address] troponin i on 02-06 Troponin I.cardiac < 0.015 0.000-0.045 ng/mL Normal 7 [facility] mass conc (49809) Comment: Result Comment: 0.046 - 0.40 0 = Indeterminate> 0.400 = Consider Myocardial Injury Performed By: #### HEMDF, AP TT, PT, CMP3, BNP3, DDI, TSH4, LIPD2, TROPN ####[address] [place] [address] thyroid stim. hormone on 2017-02-06 Thyroid Stim. Hormone 4.510 0.358-3.740 uU/mL High 2016 [facility] (48715) Comment: Performed By: #### HEMDF, AP TT, PT, CMP3, BNP3, DDI, TSH4, LIPD2, TROPN ####[place] [address] [place] [address] prothrombin time on 2017-02-06 INR Coag RelTime (PPP) 0.9 0.9-1.1 {INR} Normal 017 [facility] (54047) Comment: Result Comment: Recommended Anticoagulant Therapy:SEE BELOW----- [...] PT, CMP3, BNP3, DDI, TSH4, LIPD2, TROPN ####[place] [address] [place] [address] Prothrombin time (PT) Coag 9.7 9.0-12.0 s Normal [facility] time (PPP) (17829) Comment: Result Comment: . Performed By: #### HEMDF, AP TT, PT, CMP3, BNP3, DDI, TSH4, LIPD2, TROPN ####[address] [address] nt pro bnp on 02-06 BNP 310 0-125 pg/mL High 02-06-2017 [facility] (70962) Comment: Performed By: #### HEMDF, AP TT, PT, CMP3, BNP3, DDI, TSH4, LIPD2, TROPN ####[address] [address] lipid panel on 2016 Cholesterol to HDL Ratio 3 Normal 02-06 [facility] (06392) Comment: Result Comment: Ref Range:< 3 Low Risk for CHD3-6 Mod Risk for CHD> 6 High Risk for CHD Performed By: #### HEMDF, AP TT, PT, CMP3, BNP3, DDI, TSH4, LIPD2, TROPN ####[address] [address] HDL Cholesterol 50 40-59 mg/dL Normal 02-06-2017 [facility] (13118) Comment: Performed By: #### HEMDF, AP TT, PT, CMP3, BNP3, DDI, TSH4, LIPD2, TROPN ####[address] [address] Low Density Lipoprotein 76 <100 mg/dL Normal 2016 [facility] (62615) Comment: Performed By: #### HEMDF, AP TT, PT, CMP3, BNP3, DDI, TSH4, LIPD2, TROPN ####[address] [address] Triglyceride 180 <150 mg/dL Abnormal 02-06-2017 [facility] (21629) Comment: Performed By: #### HEMDF, AP TT, PT, CMP3, BNP3, DDI, TSH4, LIPD2, TROPN ####[address] [address] Cholesterol 162 < 200 mg/dL Normal 02-06-2017 [facility] (82921) Comment: Performed By: #### HEMDF, AP TT, PT, CMP3, BNP3, DDI, TSH4, LIPD2, TROPN ####[address] [address] hemogram w/ autodiff on 2017-02-06 Abs Baso Cnt 0.0 0.0-0.2 10*3/uL Normal 02-06-2017 [facility] (77552) Comment: Performed By: #### HEMDF, AP TT, PT, CMP3, BNP3, DDI, TSH4, LIPD2, TROPN ####[address] [address] Basophils/100 WBC Auto (Bld) 0.5 % Normal 0 02-06-2017 [facility] (94413) Comment: Performed By: #### HEMDF, AP TT, PT, CMP3, BNP3, DDI, TSH4, LIPD2, TROPN ####[place] [address] [place] [address] Eosinophils 0.1 0.0-0.5 10*3/uL Normal 02-06-2017 [facility] (60798) Comment: Performed By: #### HEMDF, AP TT, PT, CMP3, BNP3, DDI, TSH4, LIPD2, TROPN ####[address] [address] Eosinophils/100 leukocytes 2.1 % Normal [facility] (26511) Comment: Performed By: #### HEMDF, AP TT, PT, CMP3, BNP3, DDI, TSH4, LIPD2, TROPN ####[address] [address] Erythrocyte distribution 13.6 11.5-14.5 % Normal 02-06 [facility] width Auto Ratio (RBC) (05478) Comment: Performed By: #### HEMDF, AP TT, PT, CMP3, BNP3, DDI, TSH4, LIPD2, TROPN ####[address] [address] Erythrocytes (RBC) 3.92 3.80-5.20 10*6/uL Normal 02-06-2017 [facility] (26805) Comment: Performed By: #### HEMDF, AP TT, PT, CMP3, BNP3, DDI, TSH4, LIPD2, TROPN ####[address] [address] Granulocytes/100 WBC (Bld) 66.7 % Normal [facility] (80940) Comment: Performed By: #### HEMDF, AP TT, PT, CMP3, BNP3, DDI, TSH4, LIPD2, TROPN ####[place] [address] Hematocrit (HCT) 35.7 35.0-47.0 % Normal 02-06-2017 [facility] (10114) Comment: Performed By: #### HEMDF, AP TT, PT, CMP3, BNP3, DDI, TSH4, LIPD2, TROPN ####[address] [address] Hemoglobin mass conc 12.1 11.7-16.0 g/dL Normal 7 [facility] (Bld) (60516) Comment: Performed By: #### HEMDF, AP TT, PT, CMP3, BNP3, DDI, TSH4, LIPD2, TROPN ####[place] [address] Lymphocytes 1.7 1.0-4.3 10*3/uL Normal 02-06-2017 [facility] (86474) Comment: Performed By: #### HEMDF, AP TT, PT, CMP3, BNP3, DDI, TSH4, LIPD2, TROPN ####[address] [address] Lymphocytes/100 leukocytes 24.5 % Normal [facility] (73858) Comment: Performed By: #### HEMDF, AP TT, PT, CMP3, BNP3, DDI, TSH4, LIPD2, TROPN ####[address] [address] MCH 30.7 26.0-34.0 pg Normal 02-06-2017 [facility] (93282) Comment: Performed By: #### HEMDF, AP TT, PT, CMP3, BNP3, DDI, TSH4, LIPD2, TROPN ####[place] [address] MCHC mass conc (RBC) 33.8 32.0-36.0 % Normal 7 [facility] (00832) Comment: Performed By: #### HEMDF, AP TT, PT, CMP3, BNP3, DDI, TSH4, LIPD2, TROPN ####[address] [address] MCV 91.0 79.0-98.0 fL Normal 02-06-2017 [facility] (98806) Comment: Performed By: #### HEMDF, AP TT, PT, CMP3, BNP3, DDI, TSH4, LIPD2, TROPN ####[address] [address] Monocytes 0.4 0.0-0.8 10*3/uL Normal 02-06-2017 [facility] (08196) Comment: Performed By: #### HEMDF, AP TT, PT, CMP3, BNP3, DDI, TSH4, LIPD2, TROPN ####[address] [address] Monocytes/100 leukocytes 6.2 % Normal 02-06 [facility] (76094) Comment: Performed By: #### HEMDF, AP TT, PT, CMP3, BNP3, DDI, TSH4, LIPD2, TROPN ####[address] [address] Neutrophils 4.7 1.8-7.0 10*3/uL Normal 02-06-2017 [facility] (62898) Comment: Performed By: #### HEMDF, AP TT, PT, CMP3, BNP3, DDI, TSH4, LIPD2, TROPN ####[address] [address] Platelet mean volume (PMV) 9.3 7.4-10.4 fL Normal [facility] (86227) Comment: Performed By: #### HEMDF, AP TT, PT, CMP3, BNP3, DDI, TSH4, LIPD2, TROPN ####[address] [place] [address] Platelets 169 140-440 10*3/uL Normal 02-06-2017 [facility] (45040) Comment: Performed By: #### HEMDF, AP TT, PT, CMP3, BNP3, DDI, TSH4, LIPD2, TROPN ####[address] [address] WBC (Leukocytes) 7.0 3.6-10.7 10*3/uL Normal 02-06-2017 [facility] (19595) Comment: Performed By: #### HEMDF, AP TT, PT, CMP3, BNP3, DDI, TSH4, LIPD2, TROPN ####[address] [address] glucose,bedside on 2017-02-06 Glucose mass conc 216 70-100 mg/dL High 02-06-2017 [facility] (83430) Comment: Result Comment: Test perform ed by glucose meter. Results may be 10%-15% lowerthan serum/plasma value s. (CLIA ID [id number]) Performed By: #### HEMDF, PT /AP, CMP3, TSH4, B12, BNP3, RPR ####[address] [address] Glucose mass conc 157 70-100 mg/dL High 02-06-2017 [facility] (18432) Comment: Result Comment: Test perform ed by glucose meter. Results may be 10%-15% lowerthan serum/plasma value s. (CLIA ID [id number]) Performed By: #### HEMDF, PT /AP, CMP3, TSH4, B12, BNP3, RPR ####[address] [address] Glucose mass conc 111 70-100 mg/dL High 02-06-2017 [facility] (21722) Comment: Result Comment: Test perform ed by glucose meter. Results may be 10%-15% lowerthan serum/plasma value s. (CLIA ID [id number]) Performed By: #### BGLU #### [address] [place] [address] Glucose mass conc 121 70-100 mg/dL High 02-06-2017 [facility] (76262) Comment: Result Comment: Test perform ed by glucose meter. Results may be 10%-15% lowerthan serum/plasma value s. (CLIA ID [id number]) Performed By: #### BGLU #### [place] [address] [place] [address] d-dimer, innovance on 2017-02-06 D-Dimer, Innovance 3.44 0.17-0.59 ug{FEU}/mL High 02-06-2017 [facility] [employer] [facility] (84217) Comment: Result Comment: Innovance D- Dimer values of <0.50 mg/L FEU can be used incombination with a pre-braxton t probability model (e.g. Well's)to exclude pulmonary embolism (PE) dise ase, as well as alyssa in the diagnosis of deep vein thrombosis (DVT). Performed By: #### HEMDF, AP TT, PT, CMP3, BNP3, DDI, TSH4, LIPD2, TROPN ####[place] [address] [place] [address] cta chest w/ + w/o contrast on 2017-02-06 CTA Chest w/ + w/o Patient Name: Lucien RESENDIZ 02-06-2017 [facility] (50202) CT Exam Date/Time 02/06/2017 04:32:28 EDT Exam CTA Chest w/ + w/o Contrast Ordering Physician JENNY TSANG [place] Accession Number [id number] CPT4 Codes 87278 (), Q9967 () Reason For Exam DYSPNEA, [...] Alkaline phosphatase (ALP) 80 45-117 U/L Normal [facility] (88041) Comment: Performed By: #### HEMDF, AP TT, PT, CMP3, BNP3, DDI, TSH4, LIPD2, TROPN ####[address] [address] Anion gap 7 mmol/L Normal 02-06-2017 [facility] (48299) Comment: Performed By: #### HEMDF, AP TT, PT, CMP3, BNP3, DDI, TSH4, LIPD2, TROPN ####[address] [address] Bilirubin (total) 0.4 0.2-1.0 mg/dL Normal 02-06-2017 [facility] (52351) Comment: Performed By: #### HEMDF, AP TT, PT, CMP3, BNP3, DDI, TSH4, LIPD2, TROPN ####[address] [address] Protein 7.3 6.4-8.2 g/dL Normal 02-06-2017 [facility] (67130) Comment: Performed By: #### HEMDF, AP TT, PT, CMP3, BNP3, DDI, TSH4, LIPD2, TROPN ####[place] [address] Alanine aminotransferase (ALT) 31 12-78 U/L Normal 02-06-2017 [facility] (97299) Comment: Performed By: #### HEMDF, AP TT, PT, CMP3, BNP3, DDI, TSH4, LIPD2, TROPN ####[place] [address] Aspartate aminotransferase (AST) 14 15-37 U/L Low 02-06-2017 [facility] (84403) Comment: Performed By: #### HEMDF, AP TT, PT, CMP3, BNP3, DDI, TSH4, LIPD2, TROPN ####[place] [address] Creatinine 1.25 0.55-1.40 mg/dL Normal 02-06-2017 [facility] (55458) Comment: Performed By: #### HEMDF, AP TT, PT, CMP3, BNP3, DDI, TSH4, LIPD2, TROPN ####[place] [address] eGFR (black) 50.8 >60 mL/min Normal 02-06-2017 [facility] (03307) Comment: Performed By: #### HEMDF, AP TT, PT, CMP3, BNP3, DDI, TSH4, LIPD2, TROPN ####[place] [address] eGFR (non-black) 42.0 >60 mL/min Normal 02-06-2017 [facility] (03756) Comment: Result Comment: Source- MDRD equation with creatinine calibration to IDMS(NKDEP)eGFR not recommen ded for drug dose adjustment Performed By: #### HEMDF, AP TT, PT, CMP3, BNP3, DDI, TSH4, LIPD2, TROPN ####[address] [place] [address] Albumin 3.2 3.4-5.0 g/dL Low 02-06-2017 [facility] (32235) Comment: Performed By: #### HEMDF, AP TT, PT, CMP3, BNP3, DDI, TSH4, LIPD2, TROPN ####[address] [place] [address] Urea nitrogen 14 7-25 mg/dL Normal 02-06-2017 [facility] (91776) Comment: Performed By: #### HEMDF, AP TT, PT, CMP3, BNP3, DDI, TSH4, LIPD2, TROPN ####[place] [address] Calcium 8.6 8.2-10.1 mg/dL Normal 02-06-2017 [facility] (54118) Comment: Performed By: #### HEMDF, AP TT, PT, CMP3, BNP3, DDI, TSH4, LIPD2, TROPN ####[place] [address] CO2 24 21-32 mmol/L Normal 02-06-2017 [facility] (32500) Comment: Performed By: #### HEMDF, AP TT, PT, CMP3, BNP3, DDI, TSH4, LIPD2, TROPN ####[place] [address] Glucose mass conc 58 70-100 mg/dL Low 02-06-2017 [facility] (53302) Comment: Performed By: #### HEMDF, AP TT, PT, CMP3, BNP3, DDI, TSH4, LIPD2, TROPN ####[place] [address] Chloride 109 98-109 mmol/L Normal 02-06-2017 [facility] (57220) Comment: Performed By: #### HEMDF, AP TT, PT, CMP3, BNP3, DDI, TSH4, LIPD2, TROPN ####[address] [place] [address] Potassium molar conc 3.3 3.5-5.1 mmol/L Low 7 [facility] (80981) Comment: Performed By: #### HEMDF, AP TT, PT, CMP3, BNP3, DDI, TSH4, LIPD2, TROPN ####[address] [address] Sodium 140 135-145 mmol/L Normal 02-06-2017 [facility] (76714) Comment: Performed By: #### HEMDF, AP TT, PT, CMP3, BNP3, DDI, TSH4, LIPD2, TROPN ####[address] [address] basic metabolic panel on 2017-02-06 Anion gap 8 mmol/L Normal 02-06-2017 [facility] (76873) Comment: Performed By: #### BMP3 #### [place] [address] Creatinine 1.23 0.55-1.40 mg/dL Normal 02-06-2017 [facility] (37343) Comment: Performed By: #### BMP3 #### [place] [address] eGFR (black) 51.8 >60 mL/min Normal 02-06-2017 [facility] (09575) Comment: Performed By: #### BMP3 #### [address] [address] eGFR (non-black) 42.7 >60 mL/min Normal 02-06-2017 [facility] (79539) Comment: Result Comment: Source- MDRD equation with creatinine calibration to IDMS(NKDEP)eGFR not recommen ded for drug dose adjustment Performed By: #### BMP3 #### [address] [place] [id number] CO2 27 21-32 mmol/L Normal 02-06-2017 [facility] (56060) Comment: Performed By: #### BMP3 #### [address] [place] [address] Glucose mass conc 109 70-100 mg/dL High 02-06-2017 [facility] (21758) Comment: Performed By: #### BMP3 #### [address] [address] Urea nitrogen 14 7-25 mg/dL Normal 02-06-2017 [facility] (42977) Comment: Performed By: #### BMP3 #### [address] [address] Calcium 8.6 8.2-10.1 mg/dL Normal 02-06-2017 [facility] (99772) Comment: Performed By: #### BMP3 #### [address] [address] Chloride 107 98-109 mmol/L Normal 02-06-2017 [facility] (75679) Comment: Performed By: #### BMP3 #### [address] [address] Potassium molar conc 3.7 3.5-5.1 mmol/L Normal 7 [facility] (16146) Comment: Performed By: #### BMP3 #### [address] [address] Sodium 142 135-145 mmol/L Normal 02-06-2017 [facility] (62333) Comment: Performed By: #### BMP3 #### [address] [address] aptt on 2017-02-06 aPTT 22.0 20.0-30.5 s Normal 02-06-2017 [facility] (72140) Comment: Result Comment: NOTE: The th erapeutic time for Heparin anticoagulation,based on Xa activity inhibition, i s an APTT of 46-80seconds. Performed By: #### HEMDF, AP TT, PT, CMP3, BNP3, DDI, TSH4, LIPD2, TROPN ####[address] [address] hemogram on 2017-01 Erythrocyte distribution 14.0 11.5-14.5 % Normal 01-24 [facility] width Auto Ratio (RBC) (01648) Comment: Performed By: #### BMP3, HEM OG ####[address] [place] [address] Erythrocytes (RBC) 3.52 3.80-5.20 10*6/uL Low 01-24-2017 [facility] (24610) Comment: Performed By: #### BMP3, HEM OG ####[address] [place] [address] Hematocrit (HCT) 31.3 35.0-47.0 % Low 01-24-2017 [facility] (71033) Comment: Performed By: #### BMP3, HEM OG ####[place] [address] Hemoglobin mass conc (Bld) 10.7 11.7-16.0 g/dL Low [facility] (56934) Comment: Performed By: #### BMP3, HEM OG ####[address] [place] [address] MCH 30.3 26.0-34.0 pg Normal 01-24-2017 [facility] (45328) Comment: Performed By: #### BMP3, HEM OG ####[address] [address] [address] [place] [address] MCHC mass conc (RBC) 34.1 32.0-36.0 % Normal 7 [facility] (31358) Comment: Performed By: #### BMP3, HEM OG ####[address] [place] [address] MCV 89.0 79.0-98.0 fL Normal 01-24-2017 [facility] (29080) Comment: Performed By: #### BMP3, HEM OG ####[address] [place] [address] Platelet mean volume (PMV) 9.8 7.4-10.4 fL Normal [facility] (30127) Comment: Performed By: #### BMP3, HEM OG ####[place] [address] [place] [address] Platelets 133 140-440 10*3/uL Low 01-24-2017 [facility] (84312) Comment: Performed By: #### BMP3, HEM OG ####[place] [address] [place] [address] WBC (Leukocytes) 4.0 3.6-10.7 10*3/uL Normal 01-24-2017 [facility] (16975) Comment: Performed By: #### BMP3, HEM OG ####[place] [place] [address] glucose,bedside on 2017-01-24 Glucose mass conc 399 70-100 mg/dL High 01-24-2017 [facility] (29127) Comment: Result Comment: Test perform ed by glucose meter. Results may be 10%-15% lowerthan serum/plasma value s. (CLIA ID [id number]) Performed By: #### BGLU #### [place] [address] [place] [address] Glucose mass conc 197 70-100 mg/dL High 01-24-2017 [facility] (42030) Comment: Result Comment: Test perform ed by glucose meter. Results may be 10%-15% lowerthan serum/plasma value s. (CLIA ID [id number]) Performed By: #### BGLU #### [place] [place] [address] Glucose mass conc 263 70-100 mg/dL High 01-24-2017 [facility] (52336) Comment: Result Comment: Test perform ed by glucose meter. Results may be 10%-15% lowerthan serum/plasma value s. (CLIA ID [id number]) Performed By: #### BGLU #### [place] [place] [address] Glucose mass conc 249 70-100 mg/dL High 01-24-2017 [facility] (18030) Comment: Result Comment: Test perform ed by glucose meter. Results may be 10%-15% lowerthan serum/plasma value s. (CLIA ID [id number]) Performed By: #### BGLU #### [address] [place] [address] basic metabolic panel on 2017-01-24 Anion gap 9 mmol/L Normal 01-24-2017 [facility] (77445) Comment: Performed By: #### BMP3, HEM OG ####[address] [place] [address] Creatinine 1.13 0.55-1.40 mg/dL Normal 01-24-2017 [facility] (72639) Comment: Performed By: #### BMP3, HEM OG ####[address] [place] [address] eGFR (black) 57.1 >60 mL/min Normal 01-24-2017 [facility] (29545) Comment: Performed By: #### BMP3, HEM OG ####[address] [place] [address] eGFR (non-black) 47.1 >60 mL/min Normal 01-24-2017 [facility] (52538) Comment: Result Comment: Source- MDRD equation with creatinine calibration to IDMS(NKDEP)eGFR not recommen ded for drug dose adjustment Performed By: #### BMP3, HEM OG ####[address] [place] [address] Glucose mass conc 223 70-100 mg/dL High 01-24-2017 [facility] (33236) Comment: Performed By: #### BMP3, HEM OG ####[address] [place] [address] Urea nitrogen 24 7-25 mg/dL Normal 01-24-2017 [facility] (61989) Comment: Performed By: #### BMP3, HEM OG ####[address] [place] [address] Calcium 8.1 8.2-10.1 mg/dL Low 01-24-2017 [facility] (74238) Comment: Performed By: #### BMP3, HEM OG ####[facility] [place] [address] CO2 21 21-32 mmol/L Normal 01-24-2017 [facility] (37739) Comment: Performed By: #### BMP3, HEM OG ####[address] [place] [address] Chloride 110 98-109 mmol/L High 01-24-2017 [facility] (14475) Comment: Performed By: #### BMP3, HEM OG ####[place] [address] [place] [address] Potassium molar conc 4.3 3.5-5.1 mmol/L Normal 7 [facility] (23450) Comment: Performed By: #### BMP3, HEM OG ####[address] [place] [address] Sodium 140 135-145 mmol/L Normal 01-24-2017 [facility] (97532) Comment: Performed By: #### BMP3, HEM OG ####[address] [place] [address] rpr, qual on 01-23 RPR, Qual NONREACTIVE Non-Reactive Normal 01-23-2017 [facility] (93241) Comment: Performed By: #### UAFRAN, UA NIGEL ####[address] [place] [address] hiv 1,2 ab; p24 ag on 2017-01-23 HIV 1,2 Ab; p24 Ag NONREACTIVE Nonreactive Normal 017 [facility] (07218) Comment: Result Comment: Results obta ined using [...] charge. Performed By: #### UAMAC, UA NIGEL ####[address] [place] [address] hemogram on 2017-01 Erythrocyte distribution 14.3 11.5-14.5 % Normal 01-23 [facility] width Auto Ratio (RBC) (89766) Comment: Performed By: #### UAMAC, UA NIGEL ####[address] [place] [address] Erythrocytes (RBC) 3.77 3.80-5.20 10*6/uL Low 01-23-2017 [facility] (45835) Comment: Performed By: #### UAMAC, UA NIGEL ####[address] [place] [address] Hematocrit (HCT) 33.6 35.0-47.0 % Low 01-23-2017 [facility] ([id number]) Comment: Performed By: #### UAMAC, UA NIGEL ####[address] [place] [address] Hemoglobin mass conc (Bld) 11.4 11.7-16.0 g/dL Low [facility] ([id number]) Comment: Performed By: #### UAMAC, UA NIGEL ####[address] [place] [address] MCH 30.3 26.0-34.0 pg Normal 01-23-2017 [facility] ([id number]) Comment: Performed By: #### UAMAC, UA NIGEL ####[address] [place] [address] MCHC mass conc (RBC) 34.0 32.0-36.0 % Normal 7 [facility] ([id number]) Comment: Performed By: #### UAMAC, UA NIGEL ####[address] [place] [address] MCV 89.2 79.0-98.0 fL Normal 01-23-2017 [facility] ([id number]) Comment: Performed By: #### UAMAC, UA NIGEL ####[address] [place] [address] Platelet mean volume (PMV) 10.6 7.4-10.4 fL High [facility] ([id number]) Comment: Performed By: #### UAMAC, UA NIGEL ####[address] [place] [address] Platelets 140 140-440 10*3/uL Normal 01-23-2017 [facility] ([id number]) Comment: Performed By: #### UAMAC, UA NIGEL ####[address] [place] [address] WBC (Leukocytes) 5.2 3.6-10.7 10*3/uL Normal 01-23-2017 [facility] ([id number]) Comment: Performed By: #### UAMAC, UA NIGEL ####[address] [place] [address] glucose,bedside on 2017-01-23 Glucose mass conc 104 70-100 mg/dL High 01-23-2017 [facility] ([id number]) Comment: Result Comment: Test perform ed by glucose meter. Results may be 10%-15% lowerthan serum/plasma value s. (CLIA ID [id number]) Performed By: #### BGLU #### [address] [place] [address] Glucose mass conc 98 70-100 mg/dL Normal 01-23-2017 [facility] [facility] ([id number]) Comment: Result Comment: Test perform ed by glucose meter. Results may be 10%-15% lowerthan serum/plasma value s. (CLIA ID [id number]) Performed By: #### UAMAC, UA NIGEL ####[address] [place] [address] Glucose mass conc 90 70-100 mg/dL Normal 01-23-2017 [facility] (41124) Comment: Result Comment: Test perform ed by glucose meter. Results may be 10%-15% lowerthan serum/plasma value s. (CLIA ID [id number]) Performed By: #### UAMAC, UA NIGEL ####[address] [place] [address] Glucose mass conc 98 70-100 mg/dL Normal 01-23-2017 [facility] (52882) Comment: Result Comment: Test perform ed by glucose meter. Results may be 10%-15% lowerthan serum/plasma value s. (CLIA ID [id number]) Performed By: #### UAMAC, UA NIGEL ####[address] [place] [address] basic metabolic panel on 2017-01-23 Anion gap 9 mmol/L Normal 01-23-2017 [facility] (35486) Comment: Performed By: #### UAMAC, UA NIGEL ####[address] [place] [address] Creatinine 1.13 0.55-1.40 mg/dL Normal 01-23-2017 [facility] (50261) Comment: Performed By: #### UAMAC, UA NIGEL ####[address] [place] [address] eGFR (black) 57.1 >60 mL/min Normal 01-23-2017 [facility] (68778) Comment: Performed By: #### UAMAC, UA NIGEL ####[address] [place] [address] eGFR (non-black) 47.1 >60 mL/min Normal 01-23-2017 [facility] (17620) Comment: Result Comment: Source- MDRD equation with creatinine calibration to IDMS(NKDEP)eGFR not recommen ded for drug dose adjustment Performed By: #### UAMAC, UA NIGEL ####[address] [place] [address] Calcium 8.3 8.2-10.1 mg/dL Normal 01-23-2017 [facility] (94994) Comment: Performed By: #### UAMAC, UA NIGEL ####[address] [place] [address] CO2 21 21-32 mmol/L Normal 01-23-2017 [facility] (24884) Comment: Performed By: #### UAMAC, UA NIGEL ####[address] [place] [address] Glucose mass conc 93 70-100 mg/dL Normal 01-23-2017 [facility] (70068) Comment: Performed By: #### UAMAC, UA NIGEL ####[address] [place] [address] Urea nitrogen 24 7-25 mg/dL Normal 01-23-2017 [facility] (50498) Comment: Performed By: #### UAMAC, UA NIGEL ####[address] [place] [address] Chloride 113 98-109 mmol/L High 01-23-2017 [facility] (66759) Comment: Performed By: #### UAMAC, UA NIGEL ####[address] [place] [address] Potassium molar conc 3.8 3.5-5.1 mmol/L Normal 7 [facility] (10322) Comment: Performed By: #### UAMAC, UA NIGEL ####[address] [place] [address] Sodium 143 135-145 mmol/L Normal 01-23-2017 [facility] (62504) Comment: Performed By: #### UAMAC, UA NIGEL ####[address] [place] [address] vitamin b12 on 2016 Cobalamins (Vitamin B12) 425 193-986 pg/mL Normal 01-22 [facility] (99324) Comment: Performed By: #### HEMDF, PT /AP, CMP3, TSH4, B12, BNP3, RPR ####[address] [place] [address] urinalysis,microscopic on 2017-01-22 Urine, bacteria in present Negative Normal 01-22-2017 [facility] sediment (05354) Comment: Result Comment: unable to qu antitate due to large amount of wbc's Performed By: #### UAMAC, UA NIGEL ####[address] [place] [address] Urine, epithelial cells see wbc comment 3-5 Normal 01-22-2017 [facility] in sediment (19678) Comment: Performed By: #### UAMAC, UA NIGEL ####[address] [place] [address] Urine, erythrocytes in see wbc comment 0-2 Normal 0 01-22-2017 [facility] sediment by area (00 000) Comment: Performed By: #### UAMAC, UA NIGEL ####[address] [place] [address] Urine, leukocytes in see below 0-5 Normal 7 [facility] sedmiment (59801) Comment: Result Comment: Grossly load ed, unable to identify any other formed elements. Performed By: #### UAMAC, UA NIGEL ####[address] [place] [address] urinalysis,macro on 2017-01-22 Bilirubin (direct) NEG Negative mg/dL Normal 01-22-2017 [facility] (33340) Comment: Performed By: #### UAMAC, UA NIGEL ####[address] [place] [address] Ketone,Urine NEG Negative Normal 01-22-2017 [facility] (29539) Comment: Performed By: #### UAMAC, UA NIGEL ####[address] [place] [address] Occult Blood,Ur 250 Negative {RBC}/uL Normal 01-22-2017 [facility] (27083) Comment: Performed By: #### UAMAC, UA NIGEL ####[address] [place] [address] Specific Colora,Urine 1.025 1.005-1.030 Normal 01-22 [facility] (44025) Comment: Performed By: #### UAMAC, UA NIGEL ####[address] [place] [address] Total Protein,Urine 150 Negative mg/dL Normal 01-22-2017 [facility] (00081) Comment: Performed By: #### UAMAC, UA NIGEL ####[address] [place] [address] Urine, appearance cloudy Clear Normal 01-22-2017 [facility] (14249) Comment: Performed By: #### UAMAC, UA NIGEL ####[address] [place] [address] Urine, color yellow Lt. Yellow Normal 01-22-2017 [facility] (86697) Comment: Performed By: #### UAMAC, UA NIGEL ####[address] [place] [address] Urine, glucose presence NORM Negative Normal 2016 [facility] (02804) Comment: Performed By: #### UAMAC, UA NIGEL ####[address] [place] [address] Urine, nitrite presence NEG Negative Normal 2016 [facility] (31008) Comment: Performed By: #### UAMAC, UA NIGEL ####[address] [place] [address] Urine, pH 5.0 5.0-8.0 [pH] Normal 01-22-2017 [facility] (39121) Comment: Performed By: #### UAMAC, UA NIGEL ####[address] [address] Urine, urobilinogen NORM 0-1 Normal 01-22-2017 [facility] (29375) Comment: Performed By: #### UAMAC, UA NIGEL ####[place] [address] WBC (Leukocytes) 2+ Negative Normal 01-22-2017 [facility] (57534) Comment: Performed By: #### UAMAC, UA NIGEL ####[place] [address] thyroid stim. hormone on 2017-01-22 Thyroid Stim. Hormone 1.470 0.358-3.740 uU/mL Normal 2016 [facility] (70085) Comment: Performed By: #### HEMDF, PT /AP, CMP3, TSH4, B12, BNP3, RPR ####[address] [address] protime on aPTT 24.2 20.0-30.5 s Normal 01-22-2017 [facility] (29970) Comment: Result Comment: NOTE: The th erapeutic time for Heparin anticoagulation,based on Xa activity inhibition, i s an APTT of 46-80seconds. Performed By: #### HEMDF, PT /AP, CMP3, TSH4, B12, BNP3, RPR ####[address] [address] INR Coag RelTime (PPP) 1.0 0.9-1.1 {INR} Normal 017 [facility] (71758) Comment: Result Comment: Recommended Anticoagulant Therapy:SEE BELOW----- [...] PT /AP, CMP3, TSH4, B12, BNP3, RPR ####[address] [address] Prothrombin time (PT) Coag 10.1 9.0-12.0 s Normal [facility] time (PPP) (31398) Comment: Result Comment: . Performed By: #### HEMDF, PT /AP, CMP3, TSH4, B12, BNP3, RPR ####[address] [address] nt pro bnp on 01-22 BNP 352 0-125 pg/mL High 01-22-2017 [facility] (39983) Comment: Performed By: #### HEMDF, PT /AP, CMP3, TSH4, B12, BNP3, RPR ####[address] [address] hemogram w/ autodiff on 2017-01-22 Abs Baso Cnt 0.0 0.0-0.2 10*3/uL Normal 01-22-2017 [facility] (84430) Comment: Performed By: #### HEMDF, PT /AP, CMP3, TSH4, B12, BNP3, RPR ####[place] [place] [address] Basophils/100 WBC Auto (Bld) 0.5 % Normal 0 01-22-2017 [facility] (83487) Comment: Performed By: #### HEMDF, PT /AP, CMP3, TSH4, B12, BNP3, RPR ####[address] [address] [facility] [place] [address] Eosinophils 0.2 0.0-0.5 10*3/uL Normal 01-22-2017 [facility] (12360) Comment: Performed By: #### HEMDF, PT /AP, CMP3, TSH4, B12, BNP3, RPR ####[address] [facility] [place] [address] Eosinophils/100 leukocytes 5.2 % Normal [facility] (28931) Comment: Performed By: #### HEMDF, PT /AP, CMP3, TSH4, B12, BNP3, RPR ####[address] [place] [address] Granulocytes/100 WBC (Bld) 61.8 % Normal [facility] (09433) Comment: Performed By: #### HEMDF, PT /AP, CMP3, TSH4, B12, BNP3, RPR ####[address] [place] [address] Lymphocytes 1.3 1.0-4.3 10*3/uL Normal 01-22-2017 [facility] (37764) Comment: Performed By: #### HEMDF, PT /AP, CMP3, TSH4, B12, BNP3, RPR ####[address] [place] [address] Lymphocytes/100 leukocytes 28.3 % Normal [facility] (43732) Comment: Performed By: #### HEMDF, PT /AP, CMP3, TSH4, B12, BNP3, RPR ####[address] [place] [address] Monocytes 0.2 0.0-0.8 10*3/uL Normal 01-22-2017 [facility] (09424) Comment: Performed By: #### HEMDF, PT /AP, CMP3, TSH4, B12, BNP3, RPR ####[address] [place] [address] Monocytes/100 leukocytes 4.2 % Normal 01-22 [facility] (30272) Comment: Performed By: #### HEMDF, PT /AP, CMP3, TSH4, B12, BNP3, RPR ####[address] [place] [address] Neutrophils 2.9 1.8-7.0 10*3/uL Normal 01-22-2017 [facility] (86782) Comment: Performed By: #### HEMDF, PT /AP, CMP3, TSH4, B12, BNP3, RPR ####[address] [address] Erythrocyte distribution 13.8 11.5-14.5 % Normal 01-22 [facility] width Auto Ratio (RBC) (70527) Comment: Performed By: #### HEMDF, PT /AP, CMP3, TSH4, B12, BNP3, RPR ####[address] [address] Erythrocytes (RBC) 3.63 3.80-5.20 10*6/uL Low 01-22-2017 [facility] (09373) Comment: Performed By: #### HEMDF, PT /AP, CMP3, TSH4, B12, BNP3, RPR ####[address] [place] [address] Hematocrit (HCT) 32.5 35.0-47.0 % Low 01-22-2017 [facility] (86613) Comment: Performed By: #### HEMDF, PT /AP, CMP3, TSH4, B12, BNP3, RPR ####[address] [address] Hemoglobin mass conc (Bld) 11.2 11.7-16.0 g/dL Low [facility] (25763) Comment: Performed By: #### HEMDF, PT /AP, CMP3, TSH4, B12, BNP3, RPR ####[address] [place] [address] MCH 30.8 26.0-34.0 pg Normal 01-22-2017 [facility] (77297) Comment: Performed By: #### HEMDF, PT /AP, CMP3, TSH4, B12, BNP3, RPR ####[address] [address] MCHC mass conc (RBC) 34.4 32.0-36.0 % Normal 7 [facility] (55792) Comment: Performed By: #### HEMDF, PT /AP, CMP3, TSH4, B12, BNP3, RPR ####[address] [address] MCV 89.6 79.0-98.0 fL Normal 01-22-2017 [facility] (50690) Comment: Performed By: #### HEMDF, PT /AP, CMP3, TSH4, B12, BNP3, RPR ####[address] [address] Platelet mean volume (PMV) 10.1 7.4-10.4 fL Normal [facility] (61568) Comment: Performed By: #### HEMDF, PT /AP, CMP3, TSH4, B12, BNP3, RPR ####[address] [address] Platelets 143 140-440 10*3/uL Normal 01-22-2017 [facility] (70049) Comment: Performed By: #### HEMDF, PT /AP, CMP3, TSH4, B12, BNP3, RPR ####[address] [address] WBC (Leukocytes) 4.6 3.6-10.7 10*3/uL Normal 01-22-2017 [facility] (60095) Comment: Performed By: #### HEMDF, PT /AP, CMP3, TSH4, B12, BNP3, RPR ####[address] [place] [address] glucose,bedside on 2017-01-22 Glucose mass conc 136 70-100 mg/dL High 01-22-2017 [facility] (22853) Comment: Result Comment: Test perform ed by glucose meter. Results may be 10%-15% lowerthan serum/plasma value s. (CLIA ID [id number]) Performed By: #### UAMAC, UA NIGEL ####[address] [place] [address] Glucose mass conc 153 70-100 mg/dL High 01-22-2017 [facility] (34074) Comment: Result Comment: Test perform ed by glucose meter. Results may be 10%-15% lowerthan serum/plasma value s. (CLIA ID [id number]) Performed By: #### UAMAC, UA NIGEL ####[address] [place] [address] culture urine on 02-02-06 CULTURE Specimen Source Comment:Urine, clean catch Normal 01-22-2017 [facility] URINE [facility] Patient name: Desmond RESENDIZ MNguyenR.N.: [id number] : 1945 System Age: 71 Sex: F Ord. (50821) Physician: SANAM BARAHONA Location: [address] [place] [address] Copy to: SANAM BARAHONA Adm. Date: 01/22/17 MICROBIOLOGYORDER#: [id number] COLLECTED: 01/22/17 12:10SOURCE: Urine RECEIVED: 01/22/17 12:24 OE C O M M E N T S Specimen Source Comment:Urine, clean catchCULTURE URINE FINAL 01/23/17 15:00>100,000 CFU/ml Vicenta kefyr Comment: Performed By: #### UAMAC, UA NIGEL ####[address] [address] [address] head or brain w/o contrast on 2017-01-22 CT Head or Brain Patient Name: BABAK, Lucien 0 01-22-2017 [facility] w/o Contrast [facility] ([id number]) CT Exam Date/Time 01/22/2017 12:42:[address] Head or Brain w/o Contrast Ordering Physician MD BARAHONA JACOB A Accession Number [id number] CPT4 Codes 99587 () Reason For Exam Altered mental status [...] Abdomen/Pelvis w/o Patient Name: BABAK, Lucien 01-22-2017 [facility] Contrast [facility] (70898) CT Exam Date/Time 01/22/2017 12:44:[address] Abdomen/Pelvis (No PO, No IV) Ordering Physician HERMES GARNETT Accession Number [id number] CPT4 Codes 37156 (CT Abdomen/Pelvis (No PO, No IV)) Reason [...] Alkaline phosphatase (ALP) 77 45-117 U/L Normal [facility] (22534) Comment: Performed By: #### HEMDF, PT /AP, CMP3, TSH4, B12, BNP3, RPR ####[address] [address] Bilirubin (total) 0.6 0.2-1.0 mg/dL Normal 01-22-2017 [facility] (46339) Comment: Performed By: #### HEMDF, PT /AP, CMP3, TSH4, B12, BNP3, RPR ####[address] [address] Protein 7.0 6.4-8.2 g/dL Normal 01-22-2017 [facility] (11726) Comment: Performed By: #### HEMDF, PT /AP, CMP3, TSH4, B12, BNP3, RPR ####[address] [address] Alanine aminotransferase (ALT) 35 12-78 U/L Normal 01-22-2017 [facility] (79878) Comment: Performed By: #### HEMDF, PT /AP, CMP3, TSH4, B12, BNP3, RPR ####[address] [place] [address] Anion gap 9 mmol/L Normal 01-22-2017 [facility] (55438) Comment: Performed By: #### HEMDF, PT /AP, CMP3, TSH4, B12, BNP3, RPR ####[address] [place] [address] Aspartate aminotransferase (AST) 10 15-37 U/L Low 01-22-2017 [facility] (27257) Comment: Performed By: #### HEMDF, PT /AP, CMP3, TSH4, B12, BNP3, RPR ####[address] [address] Creatinine 1.19 0.55-1.40 mg/dL Normal 01-22-2017 [facility] (25119) Comment: Performed By: #### HEMDF, PT /AP, CMP3, TSH4, B12, BNP3, RPR ####[address] [address] eGFR (black) 53.8 >60 mL/min Normal 01-22-2017 [facility] (99150) Comment: Performed By: #### HEMDF, PT /AP, CMP3, TSH4, B12, BNP3, RPR ####[address] [address] eGFR (non-black) 44.4 >60 mL/min Normal 01-22-2017 [facility] (76548) Comment: Result Comment: Source- MDRD equation with creatinine calibration to IDIA(NKDEP)eGFR not recommen ded for drug dose adjustment Performed By: #### HEMDF, PT /AP, CMP3, TSH4, B12, BNP3, RPR ####[address] [address] Albumin 3.2 3.4-5.0 g/dL Low 01-22-2017 [facility] (71805) Comment: Performed By: #### HEMDF, PT /AP, CMP3, TSH4, B12, BNP3, RPR ####[place] [address] [place] [address] Urea nitrogen 24 7-25 mg/dL Normal 01-22-2017 [facility] (82177) Comment: Performed By: #### HEMDF, PT /AP, CMP3, TSH4, B12, BNP3, RPR ####[place] [address] [place] [address] Calcium 8.7 8.2-10.1 mg/dL Normal 01-22-2017 [facility] (42094) Comment: Performed By: #### HEMDF, PT /AP, CMP3, TSH4, B12, BNP3, RPR ####[place] [address] [place] [address] CO2 22 21-32 mmol/L Normal 01-22-2017 [facility] (66409) Comment: Performed By: #### HEMDF, PT /AP, CMP3, TSH4, B12, BNP3, RPR ####[place] [address] [place] [address] Glucose mass conc 184 70-100 mg/dL High 01-22-2017 [facility] (01734) Comment: Performed By: #### HEMDF, PT /AP, CMP3, TSH4, B12, BNP3, RPR ####[place] [address] [place] [address] Chloride 112 98-109 mmol/L High 01-22-2017 [facility] (36902) Comment: Performed By: #### HEMDF, PT /AP, CMP3, TSH4, B12, BNP3, RPR ####[place] [address] [place] [address] Potassium molar conc 3.8 3.5-5.1 mmol/L Normal 7 [facility] (50460) Comment: Performed By: #### HEMDF, PT /AP, CMP3, TSH4, B12, BNP3, RPR ####[place] [address] [place] [address] Sodium 143 135-145 mmol/L Normal 01-22-2017 [facility] (58533) Comment: Performed By: #### HEMDF, PT /AP, CMP3, TSH4, B12, BNP3, RPR ####[address] [place] [address] Encounters Date Type Reason Provider Location 12-04-2017 - Ambulatory Left bundle-branch [facility] 12-05-2017 block, unspecified [facility] [place] [facility] ([address]) [facility] 08-14-2017 - Ambulatory [facility] 08-14-2017 [facility] ter ([address]) 06-23-2017 Ambulatory [facility] (0 0000) 02-19-2017 Ambulatory Type 2 diabetes KEVIN PAGE [facility] Heal th mellitus with SANAM A JUN SANAM System ( [address]) unspecified A [facility] complications 02-18-2017 Ambulatory Major depressive SANAM A JUN SANAM [facility] Health disorder, single A JUN [facility] ([address]) episode, unspecified 02-18-2017 Ambulatory Edema, unspecified Luke Hashiguchi [facility] Health SANAM A JUN SANAM System (0 0000) A [facility] 02-10-2017 [facility] A JUN [facility] System (0 0000) A [facility] 02-06-2017 Ambulatory Paroxysmal atrial [facility] JUN [facility] System (0 0000) A [facility] 01-28-2017 Ambulatory Vascular dementia KEVIN PAGE [facility] He alth without behavioral SANAM A JUN SANAM Sys tem (30[address]) disturbance A [facility] 01-23-2017 Ambulatory Encounter for fitting Hermes Andres [facility] and adjustment of A JUN SANAM A System ( [address]) urinary device [facility] 01-22-2017 Ambulatory Calculus of ureter Tyrone MARION [facility] Health A JUN SANAM A System (35260 ) [facility] 08-06-2018 Patient encounter [facility] Facility :[place] [facility] 03-03-2018 Patient encounter [facility] Facility :[place] [facility] Payers Payer Name Policy Number Location TAJ ARELLANO DUAL ADVANTAGE [id number] [facility] MEDICARE ([id number]) [facility] ([id number]) [facility] [id number] [facility] ([id number]) [id number] [facility] ([address]) [id number] [facility] ([id number]) [id number] [facility] (59270) The following information is from the original [...] BE BASED ON THE PRIMARY CLINICAL RECORDS. [facility] provides no warranty or guarantee of the accuracy or completeness of information in this document. UNRECOGNIZED CONTENT PROVIDED BELOW FOR UNRECOGNIZED SECTION INFORMATION SOURCE DATE CREATED AUTHOR AUTHOR'S ORGANIZATIO N 01/06/2018 [facility] CREATED AUTHOR AUTHOR'S ORGANIZATIO N 01/12/2018 [facility] DATE CREATED AUTHOR AUTHOR'S ORGANIZATIO N 01/13/2018 [facility] DATE CREATED AUTHOR AUTHOR'S ORGANIZATIO N 10/23/[address] [facility] DATE CREATED AUTHOR AUTHOR'S ORGANIZATIO N 02/23/2019 [facility]
== END 2019-12-15 12:23 | disposition home or self-care (01) ==
LOC: ED 10:19
PROVIDERS: Emergency Provider Emergency Medicine; PCP Family Medicine
DX: S30.0XXA Contusion of lower back and pelvis, initial encounter (principal); S09.90XA Unspecified injury of head, initial encounter; I48.91 Unspecified atrial fibrillation; I50.9 Heart failure, unspecified; E78.00 Pure hypercholesterolemia, unspecified; N18.9 Chronic kidney disease, unspecified; Z79.02 Long term (current) use of antithrombotics/antiplatelets; Z79.899 Other long term (current) drug therapy; W18.30XA Fall on same level, unspecified, initial encounter; Y93.89 Activity, other specified; Y92.009 Unspecified place in unspecified non-institutional (private) residence as the place of occurrence of the external cause; Y99.8 Other external cause status
CPT/HCPCS: 70450; 72125; 74177; 80048; 85025; 96361; 96374; 99285; J7030; Q9967; A4216; J2405

== ENCOUNTER 2019-12-15 18:06 | Inpatient (IN) | payer MEDICARE, SELFPAY ==
[2019-12-15 09:06] VITALS: BMI 25.3
[2019-12-15 18:08] VITALS: BP 157/126; PULSE 57; RESP 20; TEMP 36.8; O2SAT 99; BMI 25.6
--- NOTE | 2019-12-15 18:20 | CT_ITS ---
STUDY: CT BRAIN WITHOUT CONTRAST REASON FOR EXAM: Female, 74 years old. REPEAT FALL, SLIDE OFF COUCH RADIATION DOSAGE (If Supplied By Facility): CTDIvol = ( 44.99 ) mGy, DLP = ( 745.49 ) mGycm TECHNIQUE: Transaxial CT imaging of the brain was performed without administration of intravenous contrast material. Individualized dose optimization techniques were used for this CT. COMPARISON: December 15, 2019 10:53 AM FINDINGS: Normal soft tissue structures. Normal calvarium. Calcification of cavernous carotids and bilateral vertebral arteries. Moderate atrophy and periventricular white matter ischemic changes.. Normal basal ganglia and thalami. Normal brainstem. Normal cerebellum. There is no intracranial hemorrhage. There are no findings of an acute ischemic infarction. Postsurgical changes of the orbits. Normal visualized paranasal sinuses. CT/Brain/Head without Contrast IMPRESSION: Moderate atrophy and periventricular white matter ischemic change. No evidence for acute intracranial bleed. Electronically Signed: Jordan Rosa MD at 20:30 EDT , Service support ,
--- NOTE | 2019-12-15 18:26 | ED.VISSUMM ---
- ER Visit Summary Date of Service: 12/15/19 Chief Complaint: Fall History of Present Illness: The patient is a 74 F here from her assisted living facility. The patient fell earlier today and was seen in this emergency department. She had imaging, CBC, metabolic panel. Her results were unremarkable and she was discharged. She fell again. Patient does not recall any of the fall. We received report that she had hip and back pain. She is not sure if she hit her head. She does take blood thinners for A. fib. Patient has no other complaints, but history is limited. She is oriented to person only. Per prior records, she is often confused or disoriented. Physical Examination: Hypertensive. Heart rate 57. Otherwise vitals unremarkable. Afebrile. Patient is oriented to person only. She is repetitive and confused. Head and neck are atraumatic. Heart regular. Lungs clear. Abdomen soft. Extremities show no obvious trauma. Back is nontender. Test Results: Urinalysis was performed. We will also repeat CT brain and will check x-rays of her lumbar spine and hips/pelvis because of reported pain. Emergency Department Course and Treatment: Will reevaluate the patient for new trauma. We will also check urinalysis as this was not performed earlier today. It sounds like the patient will need admission given her recurrent falls. She will likely need placement in a nursing facility. Will evaluate and contact the hospitalist. Urinalysis showed an infection. Cultures were sent and she was treated with Rocephin. Her imaging showed chronic changes. Patient will need admission for recurrent falls, UTI, and possible placement. Will contact the hospitalist. Treatment Plan: As above Disposition: Admit Impression: UTI, frequent falls, lumbar contusion This note was generated with [employer] dictation software. It may contain incorrect words, spelling, and punctuation that were not noted in review of the chart prior to signing ED Disposition - Plan for ED Patient: Referrals: Jim Padgett MD [Primary Care Provider] -
[2019-12-15] MEDS: 0.9% Normal Saline 1,000 ML 150 ML IV (19:11)
[2019-12-15 19:22] LABS: Mucous, Urine 0 SEEN /hpf (<or=2+); Red Blood Cells-Urine 0 SEEN /hpf (0-5)
[2019-12-15 19:33] LABS: Color, Urine Yellow (Yellow); Glucose, Dipstick Normal (Normal); Ketone-Dipstick Negative (Negative); Leukocyte Esterase-Dipstick 500 /ul (Negative); Nitrite-Dipstick Positive (Negative); Occult Blood-Urine 10 /ul (Negative); Protein-Dipstick Negative (Negative); Specific Gravity, Urine 1.015 (1.002-1.030); Urine Bilirubin Dipstick Negative (Negative); Urine Clarity Cloudy (Clear); Urine Urobilinogen Normal (Normal)
--- NOTE | 2019-12-15 19:35 | RAD_ITS ---
STUDY: X-RAY - PELVIS AND BILATERAL HIPS REASON FOR EXAM: Female, 74 years old. Fall this am. Bilateral hip pain. TECHNIQUE: AP view of the pelvis.? 2 views of the right hip, and 2 views of the left hip were obtained. COMPARISON: None. FINDINGS: No acute fracture, dislocation or osseous destruction. Moderate bilateral arthrosis. Large stool burden visualized. IMPRESSION: No acute fracture or dislocation. Electronically Signed: Jose Murillo, at 21:05 EDT Tel , Service support , RAD/Hips B/L min 2 views w/ Pelvis
--- NOTE | 2019-12-15 19:35 | RAD_ITS ---
STUDY: X-RAY - LUMBAR SPINE REASON FOR EXAM: Female, 74 years old. Fall this am. Low back pain. TECHNIQUE: 3 view(s) of the lumbar spine were obtained. COMPARISON: None FINDINGS: Normal lumbar lordosis. Mild leftward lumbar scoliosis. There reidentified anterolisthesis of L5 on S1. Significant multilevel spondylosis is reidentified most prominently at L2-3 and L5-S1. Extensive vascular calcifications are present. RAD/Lumbar Spine 2 or 3 Views IMPRESSION: Marked degenerative disease as above. Anterolisthesis of L5 on S1 is likely increased compared to prior. No definite acute osseous abnormality is identified. Electronically Signed: Jose Murillo, at 21:19 EDT Tel , Service support ,
[2019-12-15 19:47] LABS: Bacteria 2+ /hpf (None Seen); Squamous Epithelial Cells - UA 0-5 SEEN /hpf (5-10); White Blood Cells 25-50 SEEN /hpf (0-5)
--- NOTE | 2019-12-15 22:03 | HP.PCM_ITS ---
Problem List (1) Dementia Status: Chronic (2) Type 2 diabetes mellitus Status: Chronic (3) Paroxysmal atrial fibrillation Status: Chronic (4) Chronic diastolic (congestive) heart failure Status: Chronic (5) Hyperlipidemia Status: Chronic (6) CKD (chronic kidney disease), stage III Status: Chronic History of Present Illness Date of Admission: 12/15/19 Chief Complaint: Fall, difficulty ambulating. The patient is a 74 year old F with past medical history as mentioned above presented to the emergency room because of fall. Patient is very poor informant, confused and disoriented at baseline and not able to provide history. Patient came to the emergency department today morning because of mechanical fall. She had blood work, CT scan brain, CT scan abdomen and pelvis, CT scan cervical spine and there was no acute findings found and she was discharged back to the assisted living. Reportedly, patient fell again at the assisted living and she was brought back to the hospital. Nursing staff at the assisted [facility] reported that patient complained of hip and back pain. At this time, she denied any pain. She denied fever or chills. She denied chest pain or shortness of breath. Denied abdominal pain, nausea or vomiting. She had history of paroxysmal atrial fibrillation, has been on Eliquis for anticoagulation and she is not on any rate control medicine. She has history of type 2 diabetes mellitus, has been on Humulin insulin and her blood sugar has been under control, hemoglobin C was 6.2% on July,. In the emergency department, her vital signs were stable, she was afebrile. Routine blood work that was done today morning revealed sodium of 146, BUN of 20 and creatinine of 1.26, otherwise normal. Today morning, she had CT scan brain that showed no acute findings. Also she had CT scan abdomen and pelvis that showed no evidence of acute intra-abdominal pathology. CT scan cervical spine also done showed multilevel degenerative changes, no acute fractures. When she came back this evening, she had CT scan brain again that showed no acute findings. X-ray of the pelvis and both hips showed no acute fractures or dislocations. X-ray of the lumbar spine revealed market degenerative changes, no acute fractures. Her EKG revealed normal sinus rhythm, normal [place] interval, normal QRS, normal QTC, no acute segment changes. Urinalysis revealed cloudy urine, positive for nitrite and leukocyte esterase, there was 25-50 WBCs and 2+ bacteria. She is being admitted for acute cystitis, frequent falls, physical debility and functional decline. Past Medical History Past Medical History (Chronic Problems): Chronic Problems (Last Updated 12/15/19 @ 22:[address] Romulo Perez MD) Dementia (Chronic) Type 2 diabetes mellitus (Chronic) Vertigo (Chronic) Paroxysmal atrial fibrillation (Chronic) LBBB (left bundle branch block) (Chronic) Chronic diastolic (congestive) heart failure (Chronic) Hyperlipidemia (Chronic) CKD (chronic kidney disease), stage III (Chronic) Medical History: Medical History (Last Updated 12/15/19 @ 22:[address] Romulo Perez MD) Vertigo (Chronic) R42 Paroxysmal atrial fibrillation (Chronic) I48.0 LBBB (left bundle branch block) (Chronic) I44.7 Chronic diastolic (congestive) heart failure (Chronic) I50.32 Hyperlipidemia (Chronic) E78.5 CKD (chronic kidney disease), stage III (Chronic) N18.3 Dementia in other diseases classified elsewhere without behavioral disturbance F02.80 Diabetes type 2, controlled E11.9 Gout M10.9 Hypersomnia G47.10 Hypothyroidism E03.9 Obesity E66.9 Vitamin D deficiency E55.9 RONNY (obstructive sleep apnea) G47.33 Allergies colchicine Allergy (Severe, Verified 12/15/19 18:11) HIVES ALLERGY PILLS Adverse Reaction (Uncoded 12/15/19 18:11) Unknown Home Medications: Ambulatory Orders Medication Instructions Recorded Ferrous Sulfate 325 mg PO DAILY 08/15/17 Levothyroxine [Synthroid] 50 mcg PO DAILY 08/15/17 Loratadine 10 mg PO DAILY 08/15/17 apixaban 5 mg tablet 5 mg PO BID tab 11/09/17 atorvastatin 40 mg tablet 40 mg PO DAILY 11/09/17 methenamine hippurate 1 gram tablet 1 g PO QHS 11/09/17 Cyanocobalamin (Vitamin B-12) 1,000 mcg PO DAILY 12/19/18 [Vitamin B-12] Donepezil HCl 10 mg PO QHS 12/19/18 Ergocalciferol (Vitamin D2) 50,000 unit PO FR 12/20/18 [Vitamin D2] Memantine HCl [Memantine HCl ER] 28 mg PO DAILY 12/20/18 acetaminophen 500 mg tablet 1,000 mg PO TID tab 05/12/19 fluticasone propionate 50 1 spray INTRANASAL DAILY 05/12/19 mcg/actuation nasal spray,suspension Oxybutynin Chloride [Oxybutynin 5 mg PO DAILY 08/03/19 Chloride ER] meclizine 25 mg tablet 25 mg PO TID PRN 09/01/19 Insulin NPH Hum/Reg Insulin Hm 34 unit SQ DAILY 12/15/19 [Humulin 70-30 Vial] Ondansetron HCl [Zofran] 4 mg PO Q8H PRN 12/15/19 Potassium Chloride 20 meq PO DAILY 12/15/19 cycloBENZAPRine HCl [Flexeril] 5 mg PO TID 12/15/19 Surgical History: Surgical History (Last Reviewed 09/01/19 @ 14:46 by GERMAIN Nelson) History of total abdominal hysterectomy Z90.710 History of cholecystectomy Z90.49 Surgical History: cholecystectomy, hysterectomy Psychiatric History: No pertinent psych hx BUNDLE TIER AND LABELER History: No pertinent BUNDLE TIER AND LABELER history Lives: - - Assisted living. Smoking Status: Never smoker Alcohol: None, Rare - *Family History Paternal Family History: Family History (Last Reviewed 12/15/19 @ 22:[address] Romulo Perez MD) Sister Cancer History Items: Hypertension Maternal Family History: Family History (Last Reviewed 12/15/19 @ 22:[address] Romulo Perze MD) Sister Cancer History Items: Hypertension Review of Systems Constitutional: Reports: Weakness. Denies: Anorexia, Chills, Fever, Fatigue Eyes: Denies: Blurred vision, Double vision, Drainage, Redness HEENT: Denies: Dysphasia, Ear Pain, Eye Pain, Nasal Congestion, Sore Throat Cardiovascular: Denies: Chest Pain, Chest Tightness, Heaviness, Palpitations, Syncope Respiratory: Denies: Cough, Pleuritic Pain, Shortness of Breath, Sputum production Gastrointestinal: Denies: Abdominal Pain, Diarrhea, Nausea, Vomiting Genitourinary: Denies: Dysuria, Frequency, Hematuria Musculoskeletal: Denies: Arm Pain, Back Pain, Foot Pain Skin: Denies: Dryness, Rash Neurological: Denies: Balance problems, Double vision, Slurred speech, Headaches, Numbness Psychiatric: Denies: Anxiety, Depression Endocrine: Denies: Change in Body Habitus, Polydipsia, Polyuria VTE Information - Inpt Only VTE Present on Admission: No VTE Mechan Device Prophylaxis: None VTE Pharm Prophylaxis ordered?: No - Physical Exam Vitals/I&O's: Vital Signs Temp Pulse Resp BP Pulse Ox 98.2 F 57 L 20 H 157/126 H 99 12/15/19 18:08 12/15/19 18:08 12/15/19 18:08 12/15/19 18:08 12/15/19 18:08 Oxygen Delivery Method Room Air Weight: 154 lb 1.65 oz Body Mass Index (BMI) 25.6 Finger Stick Blood Glucose 71 General: Alert, Cooperative, No apparent distress, Confused, Disoriented HEENT: Atraumatic, PERRLA, EOMI, Normocephalic Oral: Moist Mucosa, No Gingival or Mucosal Lesions/ Ulcerations Neck: Supple, No JVD, Negative Carotid Bruits, Trachea Midline, Thyroid Normal Size and Texture Lungs: Clear to auscultation, Normal air movement, No rhonchi, No wheeze, No rales, Diminished Cardiovascular: Regular rate, Regular Rhythm, Normal S1, Normal S2, PMI Normal Abdomen: Bowel Sounds Present, Soft, Non Tender, Non-Distended, No Hepato- splenomegaly Extremities: No clubbing, No cyanosis, No edema Skin: No rashes, No breakdown Lymphatic: No Cervical, Supraclavicular, or Inguinal Adenopathy Neurological: Cranial nerves II-XII grossly intact, Motor Exam 5/5 strength throughout Psych/Mental Status: Normal Affect, Appropriate Laboratory Results 12/15/19 19:13: Urine Color Yellow, Urine Clarity Cloudy, Urine pH 5.0, Ur Specific [place] 1.015, Urine Protein Negative, Urine Glucose (UA) Normal, Urine Ketones Negative, Urine Occult Blood 10 H, Urine Nitrite Positive H, Urine Bilirubin Negative, Urine Urobilinogen Normal, Ur Leukocyte Esterase 500 H, Urine RBC 0 SEEN, Urine WBC 25-50 SEEN, Ur Squamous Epith Cells 0-5 SEEN, Urine Bacteria 2+, Urine Mucus 0 SEEN Clinical Impression(s) from Imaging Studies Brain CT 12/15/19 18:20 IMPRESSION: Moderate atrophy and periventricular white matter ischemic change. No evidence for acute intracranial bleed. Electronically Signed: Jordan Rosa MD at 20:30 EDT , Service support , Hip/Pelvis X-Ray 12/15/19 19:35 Lumbar Spine X-Ray 12/15/19 19:35 IMPRESSION: Marked degenerative disease as above. Anterolisthesis of L5 on S1 is likely increased compared to prior. No definite acute osseous abnormality is identified. Electronically Signed: Jose Murillo, at 21:19 EDT Tel , Service support , Current Medications Sodium Chloride () 1,000 mls @ 150 mls/hr IV .[id number] HANNAH Last Admin: 12/15/19 19:11 Dose: 150 mls/hr Documented by: Ceftriaxone Sodium (Rocephin) 1 gm in 50 mls @ 100 mls/hr IV X1 ONE Stop: 12/15/19 22:13 Assessment/Plan This is a 74 years old female patient was brought to the emergency department from the assisted living because of frequent falls and difficulty ambulating, found to have acute cystitis and she is being admitted for treatment and pro bably she will need placement to care home facility. #1 acute cystitis: Urinalysis reviewed. No evidence of sepsis or severe sepsis. Vital signs are stable. Plan: Admit to MedSurg floor, urine culture, gentle IV fluids for hydration, Tylenol PRN, Zofran PRN, start IV Rocephin, repeat CBC and BMP tomorrow morning, case management consult for discharge planning, PT OT evaluation and treatment. #2 frequent falls/physical debility/functional decline: Due to age and multiple medical problems, could be exaggerated by acute infection. CT scan brain done twice as well as CT scan cervical spine, CT scan abdomen pelvis and all showed no acute findings. X-ray of the lumbar spine as well as pelvis and hips showed no acute fractures. Plan: Tylenol PRN for pain, PT OT evaluation and treatment. #3 dementia with chronic confusion: Continue Aricept and memantine. #4 type 2 diabetes mellitus: ADA diet, Accu-Cheks, continue Humulin insulin, sliding scale. #5 paroxysmal atrial fibrillation: Rate is controlled, blood pressure stable, continue Eliquis for anticoagulation. She is not on any medication for rate control. #6 hyperlipidemia: Continue statins. #7 chronic diastolic CHF: Clinically stable, compensated. #8 stage III chronic kidney disease: Baseline creatinine has been around 1.2 to 1.4 mg/dL, admission creatinine is 1.26, stable at baseline. #9 DVT prophylaxis: Continue Eliquis. This note was generated with [employer] dictation software. It may contain incorrect words, spelling, and punctuation that were not noted in checking the note before signing. Inpatient E&M: 84826 Init Hosp L2
[2019-12-15] MEDS: Ceftriaxone 1 GM/50 ML BAG IV (22:08)
[2019-12-15 22:11] VITALS: BP 148/38; PULSE 62; RESP 18; TEMP 36.6; O2SAT 97
[2019-12-15 22:46] VITALS: BMI 24.4
[2019-12-15 22:52] VITALS: BMI 24.5
[2019-12-15 22:59] VITALS: BP 126/48; PULSE 65; RESP 16; TEMP 37.6; O2SAT 100
[2019-12-15] MEDS: cycloBENZAPRine HCl 5 MG TABLET PO (23:24)
[2019-12-15] MEDS: Methenamine Hippurate 1 GM Tablet PO (23:24)
[2019-12-15] MEDS: Acetaminophen 325 MG Tablet 650 MG PO (23:25)
[2019-12-15] MEDS: APIXABAN 5 MG TABLET PO (23:25)
[2019-12-15] MEDS: Donepezil HCl 10 MG Tablet PO (23:25)
[2019-12-15] MEDS: 0.45% Normal Saline 1,000 ML 75 ML IV (23:25)
[2019-12-15 23:45] LABS: Bedside Glucose 124 mg/dL (70-110)
[2019-12-16 03:49] VITALS: BP 133/48; PULSE 98; RESP 18; TEMP 36.6; O2SAT 100
[2019-12-16 05:56] LABS: Absolute Lymphocyte Count 1.46 X10^3/uL (0.83-4.51); Absolute Neutrophil Count 4.5 X10^3/uL (2.0-7.7); Basophil# 0.03 X10^3/uL; Basophil% 0.5 % (0-1); Eosinophil# 0.14 X10^3/uL; Eosinophils% 2.2 % (0-5); Lymphocyte # 1.46 X10^3/ul (4.0); Lymphocyte % 22.7 % (19-41); Mean Corp Hgb Conc 32.4 g/dL (32-36); Mean Corpuscular Hgb 33.2 pg (27.0-32.0); Mean Corpuscular Volume 102.5 fL (81-99); Mean Platelet Vol. 11.8 fl (6.2-12.0); Monocyte# 0.28 X10^3/uL; Monocyte% 4.4 % (0-10); NRBC Flagged by Analyzer 0 % (0-5); Neutrophil # 4.49 X10^3/uL (2.7-7.7); Neutrophil % 69.7 % (47-70); Platelet Count 138 K/mm3 (150-450); RBC Distribution Width CV 13.2 % (11.6-14.6); Red Blood Count 3.61 M/mm3 (4.2-5.4); White Blood Count 6.4 K/mm3 (4.4-11.0)
[2019-12-16 06:12] LABS: Anion Gap 7 (5-15); BUN 17 mg/dL (7-18); BUN/Creat Ratio 17.2 RATIO (10-20); Calcium,Total 8.2 mg/dL (8.5-10.1); Chloride 115 mmol/L (98-107); Creatinine, Serum 0.99 mg/dL (0.55-1.02); EST Glomerular Filtration Rate 58 mL/min (>60); Est Glom Filt Rate - Afr Amer 70 mL/min (>60); Glucose 125 mg/dL (74-106); Potassium 3.7 mmol/L (3.5-5.1); Sodium Level 144 mmol/L (136-145)
[2019-12-16] MEDS: Menthol/Lanolin/Calamine/Znox 113 GM Tube 1 APPLIC TOPICAL ×2 (06:29→12:10)
[2019-12-16] MEDS: Nystatin Powder 15gm Bottle 1 APPLIC TOPICAL ×2 (06:29→12:10)
[2019-12-16] MEDS: Levothyroxine 50 MCG Tablet PO (06:30)
[2019-12-16] MEDS: cycloBENZAPRine HCl 5 MG TABLET PO ×2 (06:30→14:00)
[2019-12-16 06:55] LABS: Bedside Glucose 134 mg/dL (70-110)
[2019-12-16 07:25] VITALS: O2SAT 98
[2019-12-16 08:08] VITALS: BP 142/51; PULSE 63; RESP 16; TEMP 36.9; O2SAT 97
[2019-12-16] MEDS: APIXABAN 5 MG TABLET PO (08:36)
[2019-12-16] MEDS: Tolterodine Tartrate 2 MG CAP.SA PO (08:36)
[2019-12-16] MEDS: Loratadine 10 MG Tablet PO (08:36)
[2019-12-16] MEDS: Fluticasone 0.05% 1 SPRAY NASAL.SRY NASAL (08:36)
[2019-12-16] MEDS: Memantine Hydrochloride 10 MG Tablet PO (08:38)
[2019-12-16] MEDS: Insulin Human 75/25 Kwickpen 34 UNIT SC (08:38)
--- NOTE | 2019-12-16 10:41 | NURSING ---
attempted to call son narendra for updat, no answer
[2019-12-16 11:16] LABS: Bedside Glucose 161 mg/dL (70-110)
[2019-12-16 11:18] VITALS: BP 105/32; PULSE 68; RESP 16; TEMP 37; O2SAT 97
[2019-12-16] MEDS: Insulin Lispro 100 UNIT/ML INSULN.PEN SC (12:05)
[2019-12-16] MEDS: Ferrous Sulfate 325 MG Tablet PO (12:06)
[2019-12-16 13:07] LABS: Probe Check PASS; SARS-COV-2 DNA by PCR Negative (Negative); Specimen Processing Control PASS
--- NOTE | 2019-12-16 13:29 | CASEMGMT ---
Addendum entered by Gayathri Bradford 12/16/19 14:27: LIZZIE placed a call to pt's son Jose, no answer. No identifying voicemail set up. LIZZIE left message for Jose to give this worker a call back regarding a pt at [facility]. LIZZIE placed green sheet on chart in the event pre-cert is obtained. Original Note: Social Work Note Pt is listed as being from [facility] does have history of dementia, confusion. LIZZIE met with pt and introduced self and role at [facility]. Pt is alert. Pt is able to say name and confirm that she came from [facility]. Pt states that she was independent at [facility] and uses a walker to get around. LIZZIE updated pt that the recommendation is for SNF for pt for short term rehabilitation. Pt is agreeable to SNF. LIZZIE provided pt with list of SNF that accept pt's insurance. LIZZIE educated pt on [facility]. Pt is agreeable to [facility] for short term rehabilitation. LIZZIE placed a call to Radha in TCU. Radha states she has beds available, is able to accept pt and will submit for pre-cert. Radha states she will need COVID test for pt. LIZZIE updated Charge Nurse who will order COVID test. LIZZIE placed a call to [facility] and spoke with MIKAYLA Bustillos. Tressa states pt has confusion at baseline, is Independent with ALDs and is able to walk up and down the hallways independently with no walker. Tressa states that Dr. Padgett, pt's PCP is wanting pt to go to SNF for rehabilitation. LIZZIE informed Tressa that pt walked 220ft contact guard assist of 1 with walker today and pt may get denied for SNF. LIZZIE asked Tressa about PT/OT at [facility]. Tressa states pt could get PT/OT every Thursday and at [facility]. LIZZIE updated Tressa that pt is agreeable to [facility] and that it will get submitted to pt's insurance and then it just depends if pt will get approved or not. LIZZIE updated Tressa that if pt gets denied, pt will likely just return to [facility] with PT/OT. LIZZIE asked Tressa about pt's son's. Tressa confirms that pt's son's are not involved in pt's life and states she has tried to call Jose multiple times and he never returns her phone calls. LIZZIE asked Tressa about guardianship for pt then. Tressa states she has spoken to pt's CM Caty Higgins about this before and nothing has been decided. LIZZIE informed Tressa that they really need to look into guardianship for pt if pt's son's are not willing to be decision makers for pt. Tressa agrees, states she will follow up with Caty Higgins. Physician updated this worker that pt really needs to be in a dementia/memory care unit [facility]. LIZZIE placed a call to pt's CM Caty Higgins. LIZZIE left message for Caty that pt is at [facility] and plan is [facility] for rehabilitation pending insurance approval. LIZZIE updated Caty that guardianship should be looked in to for pt if pt's sons are not willing to make decisions for pt. LIZZIE also updated Caty that physician at [facility] is stating pt really needs to be in a dementia/memory care unit at [facility]. It should be noted that the last time pt was at [facility], this worker also spoke to Caty about looking into guardianship for pt because at that time as well it was being reported that pt's son's are not involved in pt's life. Plan: [facility] pending pre-cert Gayathri Bradford TRAVELING INVENTORY ASSOCIATE, LAW ENFORCEMENT INSTRUCTOR
--- NOTE | 2019-12-16 13:43 | PCM.PN.HOSP ---
Reason for Visit: abd pain Subjective: No dysuria. No fever/chills. No BROCK/Dizziness/LH. No back pain. No cough/SOB. No nausea/vomiting/diarrhea Vitals/I&O's: Vital Signs Temp Pulse Resp BP Pulse Ox 98.6 F 68 16 105/32 L 97 12/16/19 11:18 12/16/19 11:18 12/16/19 11:18 12/16/19 11:18 12/16/19 11:18 Oxygen Delivery Method Room Air Weight: 147 lb Body Mass Index (BMI) 24.4 Finger Stick Blood Glucose 71 Intake and Output for Last 24 Hours 12/14/19 12/15/19 12/16/19 23:59 23:59 23:59 Intake Total 492.5 / 492.5 1012.5 / 1012.5 Balance 492.5 / 492.5 1012.5 / 1012.5 General: Alert, Oriented x3, Cooperative HEENT: Atraumatic, PERRLA, EOMI, Normocephalic Neck: Supple, No JVD, Negative Carotid Bruits Lungs: Clear to auscultation, Normal air movement Cardiovascular: Regular rate, No murmurs Abdomen: Bowel Sounds Present, Soft, Non Tender Extremities: No edema, Capillary Refill Less than 3 Seconds Skin: No rashes, No breakdown Musculoskeletal: No Tenderness to Palpation of Joints or Extremities Neurological: Cranial nerves II-XII grossly intact Psych/Mental Status: Normal Affect, Appropriate, Alert and oriented to time, place, person, mood and affect Microbiology Past 72 Hours 12/15/19 19:13 Urine Catheter - Catheter Urine Culture - Preliminary Presumptive E. coli Laboratory Results 12/15/19 19:13: Urine Color Yellow, Urine Clarity Cloudy, Urine pH 5.0, Ur Specific [place] 1.015, Urine Protein Negative, Urine Glucose (UA) Normal, Urine Ketones Negative, Urine Occult Blood 10 H, Urine Nitrite Positive H, Urine Bilirubin Negative, Urine Urobilinogen Normal, Ur Leukocyte Esterase 500 H, Urine RBC 0 SEEN, Urine WBC 25-50 SEEN, Ur Squamous Epith Cells 0-5 SEEN, Urine Bacteria 2+, Urine Mucus 0 SEEN 12/15/19 23:30: POC Glucose 124 H 12/16/19 05:40: Sodium 144, Potassium 3.7, Chloride 115 H, Carbon Dioxide 22.0, Anion Gap 7, BUN 17, Creatinine 0.99, Estim Creat Clear Calc 43.50, Est GFR (MDRD) Af Amer 70, Est GFR (MDRD) Non-Af 58 L, BUN/Creatinine Ratio 17.2, Glucose 125 H, Calcium 8.2 L 12/16/19 05:40: WBC 6.4, RBC 3.61 L, Hgb 12.0, Hct 37.0, MCV 102.5 H, MCH 33.2 H, MCHC 32.4, RDW Std Deviation 49.0 H, RDW Coeff of [place] 13.2, Plt Count 138 L, MPV 11.8, Immature Gran % (Auto) 0.500, Neut % (Auto) 69.7, Lymph % (Auto) 22.7, [place] % (Auto) 4.4, Eos % (Auto) 2.2, Baso % (Auto) 0.5, Absolute Neuts (auto) 4.5, Absolute Lymphs (auto) 1.46, Nucleated RBC % 0 12/16/19 06:28: POC Glucose 134 H 12/16/19 11:05: POC Glucose 161 H 12/16/19 11:35: COVID-19 (LATISHA) Negative Current Medications Acetaminophen (Tylenol) 650 mg PO Q6H PRN PRN PRN Reason: Pain Score 1-10/Temp > 100.7 F Last Admin: 12/15/19 23:25 Dose: 650 mg Documented by: Apixaban (Eliquis) 5 mg PO BID [facility] Last Admin: 12/16/19 08:36 Dose: 5 mg Documented by: Atorvastatin Calcium (Lipitor) 40 mg PO DAILY@2200 [facility] Calamine/Phenol (Calmoseptine Ointment) 1 applic TOPICAL TID [facility]; Protocol Last Admin: 12/16/19 12:10 Dose: 1 applicatio Documented by: Cyclobenzaprine HCl (Cyclobenzaprine Hcl) 5 mg PO TID [facility] Last Admin: 12/16/19 06:30 Dose: 5 mg Documented by: Dextrose (D50w Syringe) 0 gm IV X1 PRN; Protocol PRN Reason: Hypoglycemia Donepezil HCl (Aricept) 10 mg PO QHS [facility] Last Admin: 12/15/19 23:25 Dose: 10 mg Documented by: Ferrous Sulfate (Ferrous Sulfate) 325 mg PO DAILY@1200 [facility] Last Admin: 12/16/19 12:06 Dose: 325 mg Documented by: Fluticasone Propionate (Flonase Nasal [place]) 1 spray NASAL DAILY [facility] Last Admin: 12/16/19 08:36 Dose: 1 spray Documented by: Glucagon () 1 mg IM .X1 PRN PRN Reason: Hypoglycemia Ceftriaxone Sodium (Rocephin) 1 gm in 50 mls @ 100 mls/hr IV Q24@2200 [facility] Sodium Chloride () 250 mls @ 15 mls/hr IV .[id number] PRN PRN Reason: Saline Flush Insulin Human Lispro (Humalog Kwikpen (Bkc)) 0 unit SC ACHS [facility]; Protocol Last Admin: 12/16/19 12:05 Dose: 1 u Documented by: Insulin Lispro Protam/Lispro Human (Humalog Mix 75-25 Kwikpen (Bk)) 34 unit SC DAILY [facility] Last Admin: 12/16/19 08:38 Dose: 34 u Documented by: Levothyroxine Sodium (Synthroid) 50 mcg PO DAILY@0600 [facility] Last Admin: 12/16/19 06:30 Dose: 50 mcg Documented by: Loratadine (Claritin) 10 mg PO DAILY [facility] Last Admin: 12/16/19 08:36 Dose: 10 mg Documented by: Meclizine HCl (Antivert) 25 mg PO TID PRN PRN PRN Reason: Vertigo Memantine (Namenda) 10 mg PO BID [facility] Last Admin: 12/16/19 08:38 Dose: 10 mg Documented by: Methenamine Hippurate (Hiprex) 1 gm PO QHS [facility] Last Admin: 12/15/19 23:24 Dose: 1 gm Documented by: Nystatin (Mycostatin Powder) 1 applic TOPICAL TID [facility]; Protocol Last Admin: 12/16/19 12:10 Dose: 1 applicatio Documented by: Ondansetron HCl (Zofran) 4 mg IV Q8H PRN PRN PRN Reason: NAUSEA/VOMITING Senna/Docusate Sodium (Senokot-S, Jolynn-Colace) 2 tablet PO BID PRN PRN PRN Reason: Constipation Sodium Chloride () 10 - 40 ml IV UD PRN PRN Reason: SALINE FLUSH Tolterodine Tartrate (Detrol La) 2 mg PO DAILY [facility] Last Admin: 12/16/19 08:36 Dose: 2 mg Documented by: Zolpidem Tartrate (Ambien (Generic)) 5 mg PO QHS PRN PRN PRN Reason: INSOMNIA STROKE Vital Signs/Narrative: Vital Signs Temp Pulse Resp BP Pulse Ox 12/16/19 11:18 98.6 F 68 16 105/32 L 97 Medical Necessity - Tobacco Use Smoking Status: Never smoker Tobacco Use: Non-smoker Assessment/Plan 1. Acute UTI - rocephin. follow culture: presumptive E coli. covid neg. afeb. no leukocytosis. on outpatient hiprex. 2. Debility with falls - from assisted living. continue PTOT. xrays with degenerative changes. no acute fx. 3. pAfib - rate controlled. eliquis, 4. Chronic diastolic CHF - no exacerbation 5. CKDIII - stable. 6. Dementia - namenda, aricept. she is on multiple anticholinergics which may lead to increased confusion. these should be adjusted by her PCP. 7. hypothyroid - synthroid 8. DMt2 - last a1 6.2. risk of hypoglycemia at her age. may need 75/25 decreased. continue accuchecks and glucometry to trend. DVT ppx: ivana AGUILAR planning: [place] vs SNF. This patient was seen by Ricky Mcgill PA-C under the supervision of Dr. Camacho.
[2019-12-16 14:39] VITALS: BP 141/57; PULSE 63; RESP 16; TEMP 36.7; O2SAT 99
--- NOTE | 2019-12-16 15:17 | CASEMGMT ---
Social Work Note LIZZIE received call from Radha in TCU stating pre-cert has been obtained and is good all weekend. LIZZIE received call from pt's son Jose. LIZZIE updated Jose that plan is [facility] once medically cleared as pre-cert was obtained. Jose agreeable to [facility]. LIZZIE asked Jose if pt has HCPOA documents. Jose states no and his brother is starting to come around more and be involved in decision makers more. LIZZIE updated Jose that by law if there is no HCPOA, it goes spouse to make decisions and if no spouse it goes to adult children to make decisions so by law it would go to Jose and his brother to make decisions for pt. Jose states understanding, appears to be willing to make decisions for pt. Jose states that he has tried to call [facility] multiple times to return their phone calls and no one as answered. LIZZIE updated Jose that pt will likely discharge to [facility] this weekend for therapy. Jose states understanding, and is agreeable to plan. LIZZIE updated Green sheet, charge nurse on pre-cert being obtained. Charge nurse updated physicians. Plan: TCU once medically cleared Gayathri Bradford MANAGER MOUNTAIN, BEE TENDER
--- NOTE | 2019-12-16 15:43 | PCM.EXTCARCO ---
- Diet 12/15/19 22:32 Diet: Calorie Controlled Food consistency:: Regular Liquid Consistency:: Regular/Thin How many daily calories?: 1800 calorie - Routine Orders/Code Status Suppository Type: Dulcolax 10mg Suppository Frequency: Daily PRN Routine Lab Work: CBC - 5 days, BMP - 5 days Code Status: Full Code - Therapies Physical Therapy: Eval and Treat Occupational Therapy: Eval and Treat - Problem/Diagnosis (1) UTI (urinary tract infection) Status: Acute Current Visit: Yes (2) Debility Status: Chronic Current Visit: Yes (3) Dementia Status: Chronic Current Visit: Yes (4) Type 2 diabetes mellitus Status: Chronic Current Visit: Yes (5) CKD (chronic kidney disease), stage III Status: Chronic Current Visit: No (6) Chronic diastolic (congestive) heart failure Status: Chronic Current Visit: No (7) Hyperlipidemia Status: Chronic Current Visit: No (8) Paroxysmal atrial fibrillation Status: Chronic Current Visit: No - Allergies/Procedures Done in Hospital Allergies/Adverse Reactions: Allergies colchicine Allergy (Severe, Verified 12/15/19 18:11) HIVES ALLERGY PILLS Adverse Reaction (Uncoded 12/15/19 18:11) Unknown Procedures: None - Type of Care/Length of Stay Estimated LOS: Convalescent Care Less Than 30 days Type of Care Needed: Skilled Rehab Potential: Fair Prognosis: Fair - Additional Orders/Day of Discharge Day of Discharge: 12/16/19 - Follow Up Care Primary Care Physician: Jim Padgett MD [Primary Care Provider] - Please follow up with your Primary Care Physician in: 1-2 weeks
--- NOTE | 2019-12-16 15:45 | DS.PCM_ITS ---
Discharge Date and Diagnosis - Problem List Patient Problems: Active and Suspected Problems (Last Updated 12/15/19 @ 22:[address] Romulo Perez MD) UTI (urinary tract infection) (Acute) Date of Admission: 12/15/19 Date of Discharge: 12/16/19 - Primary Discharge Diagnosis Acute Problems: Active Problems (Last Updated 12/15/19 @ 22:[address] Romulo Perez MD) UTI (urinary tract infection) (Acute) Debility, falls dementia pAfib - Secondary Discharge Diagnosis Chronic Problems: Chronic Problems (Last Updated 12/15/19 @ 22:[address] Romulo Perez MD) Debility (Chronic) Dementia (Chronic) Type 2 diabetes mellitus (Chronic) Vertigo (Chronic) Paroxysmal atrial fibrillation (Chronic) LBBB (left bundle branch block) (Chronic) Chronic diastolic (congestive) heart failure (Chronic) Hyperlipidemia (Chronic) CKD (chronic kidney disease), stage III (Chronic) Hospital Course and Treatment Imaging Results: CT/Brain/Head without Contrast IMPRESSION: Moderate atrophy and periventricular white matter ischemic change. No evidence for acute intracranial bleed. RAD/Hips B/L min 2 views w/ Pelvis IMPRESSION: No acute fracture or dislocation. RAD/Lumbar Spine 2 or 3 Views IMPRESSION: Marked degenerative disease as above. Anterolisthesis of L5 on S1 is likely increased compared to prior. No definite acute osseous abnormality is identified. Operations: None Procedures: None Summary of Care Provided: Hospital Course: The patient is a 74 year old F with pmhx of multiple UTIs, dementia, pAfib, who presented to the ER from assisted living with falls and difficulty ambulating. In the ER UA appeared c/w UTI. She had no fever or leukocytosis. She had xrays of her hip, pelvis, and lumbar spine which showed no fractures. CT brain was negative for acute change. She was admitted to the med surg unit and placed on rocephin for UTI. PTOT was ordered for debility. Prelim urine culture showed presumptive E coli, in the past E coli was pansensitive on the last culture. She was transitioned to keflex and will complete a 5 day course. She will continue hiprex for prophylaxis. She had no complaints the following day. [facility]. She was discharged in stable condition. She will need close monitoring of her blood sugars as her last a1c was 6.2 which at her age puts her at risk of hypoglycemia. Her insulin may need decreased depending on her trend. She had stable blood sugar while here. This patient was seen by Ricky Mcgill PA-C under the supervision of Dr. Camacho.[] Patient Problems: Active and Suspected Problems (Last Updated 12/15/19 @ 22:[address] Romulo Perez MD) UTI (urinary tract infection) (Acute) - Physical Exam Vitals/I&O's: Vital Signs Temp Pulse Resp BP Pulse Ox 98.1 F 63 16 141/57 H 99 12/16/19 14:39 12/16/19 14:39 12/16/19 14:39 12/16/19 14:39 12/16/19 14:39 Oxygen Delivery Method Room Air Weight: 147 lb Body Mass Index (BMI) 24.4 Finger Stick Blood Glucose 71 Intake and Output for Last 24 Hours 12/14/19 12/15/19 12/16/19 23:59 23:59 23:59 Intake Total 492.5 / 492.5 1362.5 / 1362.5 Output Total 500 / 500 Balance 492.5 / 492.5 862.5 / 862.5 General: Alert, Oriented x3, Cooperative HEENT: Atraumatic, PERRLA, EOMI, Normocephalic Neck: Supple, No JVD, Negative Carotid Bruits Lungs: Clear to auscultation, Normal air movement Cardiovascular: Regular rate, No murmurs Abdomen: Bowel Sounds Present, Soft, Non Tender Extremities: No edema, Capillary Refill Less than 3 Seconds Skin: No rashes, No breakdown Musculoskeletal: No Tenderness to Palpation of Joints or Extremities Neurological: Cranial nerves II-XII grossly intact Psych/Mental Status: Normal Affect, Appropriate Microbiology Past 72 Hours 12/15/19 19:13 Urine Catheter - Catheter Urine Culture - Preliminary Presumptive E. coli Laboratory Results 12/15/19 19:13: Urine Color Yellow, Urine Clarity Cloudy, Urine pH 5.0, Ur Specific [place] 1.015, Urine Protein Negative, Urine Glucose (UA) Normal, Urine Ketones Negative, Urine Occult Blood 10 H, Urine Nitrite Positive H, Urine Bilirubin Negative, Urine Urobilinogen Normal, Ur Leukocyte Esterase 500 H, Urine RBC 0 SEEN, Urine WBC 25-50 SEEN, Ur Squamous Epith Cells 0-5 SEEN, Urine Bacteria 2+, Urine Mucus 0 SEEN 12/15/19 23:30: POC Glucose 124 H 12/16/19 05:40: Sodium 144, Potassium 3.7, Chloride 115 H, Carbon Dioxide 22.0, Anion Gap 7, BUN 17, Creatinine 0.99, Estim Creat Clear Calc 43.50, Est GFR (MDRD) Af Amer 70, Est GFR (MDRD) Non-Af 58 L, BUN/Creatinine Ratio 17.2, Glucose 125 H, Calcium 8.2 L 12/16/19 05:40: WBC 6.4, RBC 3.61 L, Hgb 12.0, Hct 37.0, MCV 102.5 H, MCH 33.2 H , MCHC 32.4, RDW Std Deviation 49.0 H, RDW Coeff of [place] 13.2, Plt Count 138 L, MPV 11.8, Immature Gran % (Auto) 0.500, Neut % (Auto) 69.7, Lymph % (Auto) 22.7, [place] % (Auto) 4.4, Eos % (Auto) 2.2, Baso % (Auto) 0.5, Absolute Neuts (auto) 4.5, Absolute Lymphs (auto) 1.46, Nucleated RBC % 0 12/16/19 06:28: POC Glucose 134 H 12/16/19 11:05: POC Glucose 161 H 12/16/19 11:35: COVID-19 (LATISHA) Negative Current Medications Acetaminophen (Tylenol) 650 mg PO Q6H PRN PRN PRN Reason: Pain Score 1-10/Temp > 100.7 F Last Admin: 12/15/19 23:25 Dose: 650 mg Documented by: Apixaban (Eliquis) 5 mg PO BID [facility] Last Admin: 12/16/19 08:36 Dose: 5 mg Documented by: Atorvastatin Calcium (Lipitor) 40 mg PO DAILY@2200 [facility] Calamine/Phenol (Calmoseptine Ointment) 1 applic TOPICAL TID [facility]; Protocol Last Admin: 12/16/19 12:10 Dose: 1 applicatio Documented by: Cyclobenzaprine HCl (Cyclobenzaprine Hcl) 5 mg PO TID [facility] Last Admin: 12/16/19 14:00 Dose: 5 mg Documented by: Dextrose (D50w Syringe) 0 gm IV X1 PRN; Protocol PRN Reason: Hypoglycemia Donepezil HCl (Aricept) 10 mg PO QHS [facility] Last Admin: 12/15/19 23:25 Dose: 10 mg Documented by: Ferrous Sulfate (Ferrous Sulfate) 325 mg PO DAILY@1200 [facility] Last Admin: 12/16/19 12:06 Dose: 325 mg Documented by: Fluticasone Propionate (Flonase Nasal [place]) 1 spray NASAL DAILY [facility] Last Admin: 12/16/19 08:36 Dose: 1 spray Documented by: Glucagon () 1 mg IM .X1 PRN PRN Reason: Hypoglycemia Ceftriaxone Sodium (Rocephin) 1 gm in 50 mls @ 100 mls/hr IV Q24@2200 [facility] Sodium Chloride () 250 mls @ 15 mls/hr IV .[id number] PRN PRN Reason: Saline Flush Insulin Human Lispro (Humalog Kwikpen (Bkc)) 0 unit SC ACHS [facility]; Protocol Last Admin: 12/16/19 12:05 Dose: 1 u Documented by: Insulin Lispro Protam/Lispro Human (Humalog Mix 75-25 Kwikpen (Bkc)) 34 unit SC DAILY [facility] Last Admin: 12/16/19 08:38 Dose: 34 u Documented by: Levothyroxine Sodium (Synthroid) 50 mcg PO DAILY@0600 [facility] Last Admin: 12/16/19 06:30 Dose: 50 mcg Documented by: Loratadine (Claritin) 10 mg PO DAILY [facility] Last Admin: 12/16/19 08:36 Dose: 10 mg Documented by: Meclizine HCl (Antivert) 25 mg PO TID PRN PRN PRN Reason: Vertigo Memantine (Namenda) 10 mg PO BID [facility] Last Admin: 12/16/19 08:38 Dose: 10 mg Documented by: Methenamine Hippurate (Hiprex) 1 gm PO QHS [facility] Last Admin: 12/15/19 23:24 Dose: 1 gm Documented by: Nystatin (Mycostatin Powder) 1 applic TOPICAL TID [facility]; Protocol Last Admin: 12/16/19 12:10 Dose: 1 applicatio Documented by: Ondansetron HCl (Zofran) 4 mg IV Q8H PRN PRN PRN Reason: NAUSEA/VOMITING Senna/Docusate Sodium (Senokot-S, Jolynn-Colace) 2 tablet PO BID PRN PRN PRN Reason: Constipation Sodium Chloride () 10 - 40 ml IV UD PRN PRN Reason: SALINE FLUSH Tolterodine Tartrate (Detrol La) 2 mg PO DAILY [facility] Last Admin: 12/16/19 08:36 Dose: 2 mg Documented by: Zolpidem Tartrate (Ambien (Generic)) 5 mg PO QHS PRN PRN PRN Reason: INSOMNIA Discharge Diet: Low fat/ Low Cholesterol, 2000 mg Sodium Diet Discharge Activity: Return to Normal Activity Home Medications: Medications to take at Discharge Ferrous Sulfate 325 mg PO DAILY 08/15/17 Levothyroxine [Synthroid] 50 mcg PO DAILY 08/15/17 Loratadine 10 mg PO DAILY 08/15/17 apixaban 5 mg tablet 5 mg PO BID tab 11/09/17 atorvastatin 40 mg tablet 40 mg PO DAILY 11/09/17 methenamine hippurate 1 gram tablet 1 g PO QHS 11/09/17 Cyanocobalamin (Vitamin B-12) [Vitamin B-12] 1,000 mcg PO DAILY 12/19/18 Donepezil HCl 10 mg PO QHS 12/19/18 Ergocalciferol (Vitamin D2) [Vitamin D2] 50,000 unit PO FR 12/20/18 Memantine HCl [Memantine HCl ER] 28 mg PO DAILY 12/20/18 fluticasone propionate 50 mcg/actuation nasal spray,suspension 1 spray INTRANASAL DAILY 05/12/19 Oxybutynin Chloride [Oxybutynin Chloride ER] 5 mg PO DAILY 08/03/19 meclizine 25 mg tablet 25 mg PO TID PRN 09/01/19 Insulin NPH Hum/Reg Insulin Hm [Humulin 70-30 Vial] 34 unit SQ DAILY 12/15/19 Ondansetron HCl [Zofran] 4 mg PO Q8H PRN 12/15/19 Potassium Chloride 20 meq PO DAILY 12/15/19 cycloBENZAPRine HCl [Flexeril] 5 mg PO TID PRN PRN 12/15/19 Acetaminophen [Tylenol Tablet] 650 mg PO Q6H PRN PRN tab 12/16/19 Cephalexin [Keflex] 500 mg PO BID #8 cap 12/16/19 Following Prescrptions Were Given to Patient: Cephalexin [Keflex] 500 mg PO BID #8 cap Primary Care Physician: Jim Padgett MD [Primary Care Provider] - Please follow up with your Primary Care Physician in: 1-2 weeks Disposition: Longterm facility Minutes spent on discharge:: 35 Patient Condition:: Stable Medical Necessity - Tobacco Use Smoking Status: Never smoker Tobacco Use: Non-smoker Meaningful Use Info Meaningful Use Diagnoses (Choose all that apply): None applicable
--- NOTE | 2019-12-16 15:56 | CASEMGMT ---
Social Work Note Discharge is in for pt to discharge to TCU. LIZZIE placed a call to Radha in TCU and left message that pt will be discharged today. Pt's COVID test came back negative. LIZZIE placed a call to Vikas Elder and left message for RN that pt will be discharged to [facility] TCU today. LIZZIE placed a call to pt's son True and left him a message that pt will be discharge to TCU today for therapy. Plan: TCU today Gayathri Bradford SENIOR DEVELOPER, [employer]
--- OUTSIDE RECORDS SUMMARY | 2020-05-01 19:05 | XMS RPT_ITS | CCD ---
:1945 External Reference #:[id number] Author Organization [facility] Care Team Providers Name Role Phone KAITLIN, [...] Onset Location colchicine Translations: AOF 11-13-2011 - [facility] Other [ COLCHICINE, COLCHICINE] Ca mpus Repository Problems Active Problems Category Problem Name Status Date Location Cardiac dysrhythmias Paroxysmal atrial Active 02-06-2017 - [place] [facility] Health fibrillation System (05992) Conduction disorders Left bundle-branch Active 08-14-2017 - [facility] block, unspecified Medical C enter (66452) Congestive heart Heart failure, Active 02-06-2017 - [facility] lt failure; nonhypertensive unspecified Sys tem (60018) Coronary atherosclerosis Atherosclerotic heart Active 017 - [facility] Health and other heart disease disease of [place] System (90240) coronary artery without angina pectoris Delirium, dementia Vascular dementia with Active 01-23-2017 [facility] amnestic and other behavioral disturbance System (74960) cognitive disorders Diabetes mellitus with Type 2 diabetes mellitus Active 2016 [facility] complications with unspecified System (00 000) complications Diabetes mellitus Type 2 diabetes mellitus Active 02-06-2017 [facility] without complication without complications System (47993) Genitourinary symptoms Encounter for fitting Active [facility] and ill-defined and adjustment of System (35636) conditions urinary device Heart valve disorders Nonrheumatic mitral Active 02-06-2017 [facility] Health (valve) insufficiency System (68636) Hypertension with Hypertensive heart Active 01-23-2017 [facility] complications and disease with heart Syst em (60779) secondary hypertension failure Mood disorders Major depressive Active 02-18-2017 [facility] disorder, single System (000 00) episode, unspecified Nutritional deficiencies Vitamin D deficiency, Active [facility] unspecified System (42665) Osteoarthritis Unspecified Active 02-06-2017 [facility] osteoarthritis, System (0000 0) unspecified site Other nervous system Other symptoms and signs Active 01-24-20 [facility] disorders involving cognitive System ( 94206) functions and awareness Thyroid disorders Hypothyroidism, Active 02-19-2017 [facility] ealth unspecified System (59175) Past or Other Problems Category Problem Name Status Date Location Administrative/social Homelessness Completed 02-19-2017 [facility] admission System (52926) Allergic reactions Allergy status to Completed 02-06-2017 [facility] other drugs, System (94105) medicaments and biological substances status Calculus of urinary Calculus of ureter Completed 01-22-2017 [facility] Health tract System (87372) Malaise and fatigue Other malaise Completed 02-19-2017 [facility] ealth System (64744) Other aftercare retirement (current) Completed 02-19-2017 [facility] use of insulin System (72204 ) Other connective Other specified soft Completed 02-06-2017 [facility] tissue disease tissue disorders System (0 0000) Pulmonary heart Other pulmonary Completed 02-18-2017 [facility] disease embolism without acute Syste m (17870) cor pulmonale Unclassified Edema, unspecified Completed 01-23-2017 - [facility] System (05139) Results Result Name Value Range Unit Interpretation Flag Date Location urine culture on 07-03-02 Bacteria identified Sp. Request/Comment: - Presu rgical Sterilization Specimen received in preservative Normal 02-18-2019 [facility] Cx Nom (U) Chauhan (67493) Culture Result - No growth (<100 CFU/ml) Comment: Performed By: #### URCUL ### #[facility] [address] [place], [place] [phone] progress on 2019-02 PROGRESS HNO ID: [id number] Normal 02-18-2019 [facility] Author: Jakub Aranda) Ania [facility] ([id number]) Service: ? Author Type: Physician Head Men'S Tennis Coach Type: Progress Notes Filed: 02/22/2019 7:51 PM Note Text: [facility] [place] PATIENT INFO: Abbey Resendiz 73 year old CCF # [id number] PCP: Jony Wills MD Referred by: Self [...] prob lems. No history of angina, CHF, WI, cardiac surgery of stents. Respiratory: Negative for [...] s. Neurologic: No history of TIA's, stroke, COMPONENT ENGINEER tumor, impaired sensorium, hemiplegia, paraplegia or quadriplegia. [...] CNOV Office Visit (UROLWS) Normal 02-19-20 19 [facility] ABBEY RESENDIZ ([id number]) 1945 F [place] Date Time Provider Department (03266) 02/18/19 9:30 AM JAKUB ESTRELLA) UROLWS During your visit today, we recorded the following informati on about you: Pulse Blood pressure Weight Height 54/minute 145/87 78 kg 1.524 m GERMAIN Magdaleno 02/22/2019 7:51 PM Signed [facility] [place] PATIENT INFO: Abbey Resendiz 73 year old CCF # [id number] PCP: Jony Wills MD Referred by: Self [...] prob lems. No history of angina, CHF, WI, cardiac surgery of stents. Respiratory: Negative for [...] s. Neurologic: No history of TIA's, stroke, COMPONENT ENGINEER tumor, impaired sensorium, hemiplegia, paraplegia or quadriplegia. [...] Diagnosis:Recurrent UTI [N39.0] Order(s):UA DIP, URINE (POC) [4340076] Order #: [id number] . #:[id number] [] sulfamethoxazole-trimethoprim (BACTRIM DS) 800-160 mg per tabletTake 1 tablet by mouth twice daily for 3 days.Disp: 6 tabletRfl: 0 URINE CULTURE [SQURCUL] Order #: [id number] FUTURE Prescriptions as of 02/18/2019 Sig: FLONASE [...] 02/22/19 progress on 2018-11 PROGRESS HNO ID: [id number] Normal 12-15-2018 [facility] Author: Lawson Chauhan ([id number]) Service: ? Author Type: Physician Type: Progress Notes Filed: 12/15/2018 2:05 PM Note Text: PERTINENT CARDIAC HISTORY LBBB HTN HL DM PAF? ASHD? CHF? ADHERENCE TO GUIDELINES SONIA-I or ARB for HF with prior LVEF<40 (NQF 0081) - N/A ASA or Plavix for ASHD (NQF 0067) - N/A Beta zara for ASHD with prior WI or prior LVEF<40 (NQF 00 70) - [...] checked. She would like to follow-up with [facility] and we will assist her [...] EKG1 NAME : ABBEY RESENDIZ Normal 12-16-19 [facility] PID : [id number] Vic aparicio ([id number]) : 1945 Gender : Female Race : [...] ms QTC Calculation(Bezet) : 501 ms P [place] : 22 degrees R [place] : -43 degrees T [place] : 107 degrees Test Reason : Location : 136 : [facility] Overread By : LAWSON MADRIGAL MD Edited By : LAWSON MADRIGAL MD Referred By : LAWSON MADRIGAL Acquired by : jyoti ÁLVAREZ on 2018-12-15 CNOV Office Visit (CAWSTR) Normal 12-16-19 [facility] ABBEY RESENDIZ ([id number]) 1945 F [facility] Time Provider Department (18249) 12/15/18 2:00 PM LAWSON MADRIGAL E CAWSTR [...] N/A Beta zara for ASHD with prior WI or prior LVEF<40 (NQF 00 70) - [...] checked. She would like to follow-up with [facility] and we will assist her [...] followi ng areas and commit to making production stage manager changes. EAT A WHOLE FOOD, PLANT BASED [...] in your area. Referring Provider: LAWSON MADRIGAL [[id number]] Allergies As of Date: 12/15/2018 Noted Allergy Reaction COLCHICINE 11/13/2011 8 - GI Upset Date Reviewed: 12/15/2018 Reviewed by: Jose Cummings RN - Fully Assessed Reason for Visit: Recheck [92] Primary Visit Diagnosis:PAF (paroxysmal atrial fibrillation) (HCC) [I48.0] Other Visit Diagnosis:ASHD (arteriosclerotic heart disease) [I25.10] Order(s):ECG COMPLETE [ECG01] Order #: [id number] FUTURE BASIC METABOLIC PNL [SQBMP] Order #: [id number] FUTURE Prescriptions as of 12/15/2018 Sig: ATORVASTATIN [...] the following areas and commit to making production stage manager changes. EAT A WHOLE FOOD, PLANT BASED [...] LAWSON MADRIGAL MD on 12/15/[address] [facility] Nurse Visit (CAWSTR) Normal 9 [facility] ABBEY Rodriguez ([id number]) 1945 F [place] Date Time Provider Department (95842) 12/15/18 4:00 PM NURSE CARD ADMIN [facility] WSTR CAWSTR During your visit today, we recorded the following informati on about you: Jose Cummings RN 12/15/2018 3:38 PM Signed Ekg completed per order. Pt tolerated procedure without dist ress. Jose Cummings RN Referring Provider: LAWSON MADRIGAL [[id number]] Allergies As of Date: 12/15/2018 Noted Allergy Reaction COLCHICINE 11/13/2011 8 - GI Upset Date Reviewed: 12/15/2018 Reviewed by: Jose Cummings RN - Fully Assessed Reason for Visit: Nurse Visit [792] Visit Diagnoses:PAF (paroxysmal atrial fibrillation) (HCC) [ I48.0] ASHD (arteriosclerotic heart disease) [I25.10] Order(s):ECG COMPLETE [ECG01] Order #: [id number] Prescriptions as of 12/15/2018 Sig: ATORVASTATIN 40 [...] TSH Qn 2.240 0.400-5.500 uU/mL Normal 06-21-2018 [facility] (74895) Comment: Performed By: #### TSH #### [facility] [address] [place], [place] [address] progress on 2018-06 PROGRESS HNO ID: [id number] Normal 06-21-2018 [facility] Author: Lawson Madrigal [place] ([id number]) Service: (none) Author Type: Physician Type: Progress Notes Filed: 06/21/2018 4:11 PM Note Text: PERTINENT CARDIAC HISTORY BBB HTN HL DM PAF? ASHD? CHF? ADHERENCE TO GUIDELINES SONIA-I or ARB for HF with prior LVEF<40 (NQF 0081) - N/A ASA or Plavix for ASHD (NQF 0067) - N/A Beta zara for ASHD with prior WI or prior LVEF<40 (NQF 00 70) - [...] Magnesium [Mass/Vol] 1.7 1.7-2.3 mg/dL Normal 8 [facility] (57624) cnov on 2018-06-21 CNOV Office Visit (CAWSTR) Normal 06-21-20 18 [facility] ABBEY RESENDIZ ([id number]) 1945 F [facility] Date Time Provider Department (96139) 06/21/18 1:45 PM LAWSON MADRIGAL CAWSTR During [...] N/A Beta zara for ASHD with prior WI or prior LVEF<40 (NQF 00 70) - [...] No recent labs are available. Electronically Signed: Lwason Madrigal MD June 21, 2018 2:26 PM CC: MD Lawson Sadler MD 06/21/2018 2:26 PM Signed LIFESTYLE CHANGE A healthy lifestyle is the most important compon ent of your overall treatment plan. Please give serious thought to the followi ng areas and commit to making chcf changes. EAT A WHOLE FOOD, PLANT BASED [...] in your area. Referring Provider: LAWSON MADRIGAL [[id number]] Allergies As of Date: 06/21/2018 Noted Allergy Reaction COLCHICINE 11/13/2011 8 - GI Upset Date Reviewed: 06/21/2018 Reviewed by: Tressa Ontiveros MA - Fully Assessed Reason for Visit: Established Patient [175] Primary Visit Diagnosis:PAF (paroxysmal atrial fibrillation) (HCC) [I48.0] Other Visit Diagnosis:Essential hypertension [I10] Order(s):BASIC METABOLIC PNL [SQBMP] Order #: [id number] FUT URE TSH BLD [SQTSH] Order #: [id number] FUTURE Prescriptions as of 06/21/2018 Sig: ATORVASTATIN [...] the following areas and commit to making chcf changes. EAT A WHOLE FOOD, PLANT BASED [...] 2018-06-21 Absolute nRBC <0.01 <0.01 Normal 06-21-2018 [facility] (43090) Comment: Performed By: #### CBC #### [facility] [address] [place], [place] [address] Erythrocyte distribution 13.2 11.5-15.0 % Normal 06-21 [facility] width (RBC) [Ratio] [place] (16729) Comment: Performed By: #### CBC #### [facility] [address] [place], [place] [address] Hematocrit (Bld) [Volume 43.5 36.0-46.0 % Normal 06-21 [facility] (12280) Comment: Performed By: #### CBC #### [facility] [address] [place] [address] Hemoglobin (Bld) 14.4 11.5-15.5 g/dL Normal 06-21-2018 [facility] [Mass/Vol] [place] (43002) Comment: Performed By: #### CBC #### [facility] [address] [place] [address] MCH (RBC) [Entitic mass] 33.0 26.0-34.0 pG Normal 06-21 [facility] (88397) Comment: Performed By: #### CBC #### [address] [address] MCHC (RBC) [Mass/Vol] 33.1 30.5-36.0 g/dL Normal 06-21-20 18 [facility] (73696) Comment: Performed By: #### CBC #### [address] [address] MCV (RBC) [Entitic vol] 99.8 80.0-100.0 fL Normal 06-21 [facility] (51690) Comment: Performed By: #### CBC #### [facility] [address] [place] [address] Platelet mean volume 12.3 9.0-12.7 fL Normal 8 [facility] (Bld) [Entitic vol] [place] (81870) Comment: Performed By: #### CBC #### [facility] s [address] [place] [address] Platelets (Bld) [#/Vol] 194 150-400 k/uL Normal 2017 [facility] (23042) Comment: Performed By: #### CBC #### [facility] [address] [place], [place] [address] RBC (Bld) [#/Vol] 4.36 3.90-5.20 m/uL Normal 06-21-2018 [facility] (36501) Comment: Performed By: #### CBC #### [facility] [address] [place] [address] WBC (Bld) [#/Vol] 8.37 3.70-11.00 k/uL Normal 06-21-2018 [facility] (94526) Comment: Performed By: #### CBC #### [facility] [address] [place], [place] [address] basic metabolic panl on 2018-06-21 Anion gap [Moles/Vol] 12 mmol/L Normal 06-21-20 18 [facility] (94489) Calcium [Mass/Vol] 9.6 8.5-10.2 mg/dL Normal 06-21-2018 [facility] (92470) Chloride [Moles/Vol] 100 97-105 mmol/L Normal 8 [facility] (19565) CO2 [Moles/Vol] 23 22-30 mmol/L Normal 06-21-2018 [facility] (15994) Creatinine [Mass/Vol] 0.97 0.58-0.96 mg/dL High 06-21-20 18 [facility] (55361) eGFR- Amer. >60 Normal 06-21-2018 [facility] (60640) GFR/1.73 sq M predicted 56 . Normal 2017 [facility] among non-blacks MDRD [place] (23658) (S/P/Bld) [Vol rate/Area] Comment: Result Comment: eGFR [...] Glucose [Mass/Vol] 314 74-99 mg/dL High 06-21-2018 [facility] (69493) Potassium [Moles/Vol] 3.9 3.7-5.1 mmol/L Normal 06-21-20 18 [facility] (56509) Sodium [Moles/Vol] 135 136-144 mmol/L Low 06-21-2018 [facility] (89263) Urea nitrogen [Mass/Vol] 20 7-21 mg/dL Normal 06-21 [facility] (21719) progress on 2017-11 PROGRESS HNO ID: [id number]: Lawson jang 12-04-2017 Marni Chan: (none)Author Type: General PhysicianType: Progress NotesFiled: Medical 12/04/2017 5:18 PMNote Text:PERTINENT CARDIAC Center HISTORYLBBBHTNHLDMPAF?ASHD?CHF?ADHERENCE TO (37378) GUIDELINESACE-I or ARB for HF with prior LVEF<40 (NQF 0081) - N/AASA or Plavix for ASHD (NQF 0067) - N/ABeta zara for ASHD with prior WI or prior LVEF<40 (NQF 0070) - N/ABeta [...] valvular disease.Laboratory studies were performed at the intermediate. She was advised toincrease her fluid intake. Follow-up basic profile is pending.Electronically Signed:Sera Parrish 2017 4:29 PMCC: Jony Wills MD cnov on 2017-12-04 CNOV Office Visit Normal 12-04-2017 Marni (AGCARDWST) ABBEY RESENDIZ ([id number]) 1945 F Date Time Provider Department12/04/17 3:00 PM LAWSON MADRIGAL [facility] During your visit today, we recorded the following information about you: Pulse Blood pressure Weight Cente r 62/minute 138/82 77.9 kgKenn freddy Madrigal MD 12/04/2017 5:18 PM SignedPERTINENT CARDIAC (02417) HISTORYLBBBHTNHLDMPAF?ASHD?C HF?ADHERENCE TO GUIDELINESACE-I or ARB for HF with prior LVEF<40 (NQF 0081) - N/AASA or Plavix for ASHD (N QF 0067) - N/ABeta zara for ASHD with prior WI or prior LVEF<40 (NQF 0070) - N/ABeta [...] valvular disease.Laboratory studies were performed at the [facility]. She was advised toincrease her fluid [...] programs in your area.Referring Provider: LAWSON POPE [89113]Allergies As of Date: 12/04/2017 Noted Allergy ReactionCOLCHICINE [...] the following areas and commit to making production stage manager changes. EAT A WHOLE FOOD, PLANT BASED [...] area.Follow-up and Dispositi on History RecordedEncounter Number: [id number] Status:Closed by LAWSON MADRIGAL MD on 12/04/17 progress on 2017-07 PROGRESS HNO ID: [id number]: Lawson jang 08-14-2017 Marni Chan: (none)Author Type: General PhysicianType: Progress NotesFiled: Medical 08/14/2017 5:58 PMNote Text:PERTINENT CARDIAC Center HISTORYLBBBHTNHLDMPAF?ASHD?CHF?ADHERENCE TO (74565) GUIDELINESACE-I or ARB for HF with prior LVEF<40 (NQF 0081) - N/AASA or Plavix for ASHD (NQF 0067) - N/ABeta zara for ASHD with prior WI or prior LVEF<40 (NQF 0070) - N/ABeta [...] of this note will be sent to [facility].Written and verbal health teaching given to patient, patient verbalizesunderstanding and agrees with treatment plan.This note was generated using [employer] voice recognition system, and theremay be some incorrect words, spellings, and punctuation that were notnoted in checking the note before saving.DIAGNOSIS FOR VISIT:CardiomegalyHISTORY OF PRESENT ILLNESSAbbey Resendiz is a 71-year-old woman who was seen in the office todayat the request of a nurse practitioner [facility], who reports that she has cardiomegaly. No [...] year but states that she lives in [facility] cannot give me her address. She knows her date of ..Musculoskeletal: No joint deformities.EKG shows sinus rhythm with left bundle branch block. No prior EKGs areavailable.No recent labs are available. Prior LDL was 93 and renal function was lownormal.Electronically Signed:Lawson Madrigal MDAugust 14, 2017 5:48 [facility] Jony Wills MD cnov on 2017-08-14 CNOV Office Visit Normal 08-14-2017 Marni (AGCARDWST) ABBEY RESENDIZ ([id number]) 1945 F Date Time Provider Department08/14/17 1:00 PM LAWSON MADRIGAL [facility] During your visit today, we recorded the following information about you: Pulse Blood pressure Weight Cente r Height 80/minute 114/72 74.6 kg 1.524 Feliciano Madrigal MD 08/14/2017 5:58 PM SignedPERTINENT CARDIAC () HISTORYLBBBHTNHLDMPAF?ASHD?C HF?ADHERENCE TO GUIDELINESACE-I or ARB for HF with prior LVEFANDlt;40 (NQF 0081) - N/AASA or Plavix for ASHD (NQF 0067) - N/ABeta zara for ASHD with prior WI or prior LVEFANDlt;40 (NQF 0070) - N/ [...] of this note will be sent to [facility].Wri tten and verbal health teaching given to patient, patient verbalizesunderstanding and agrees with treatment plan.This note was generated using [employer] voice recognition system, and ther e may besome incorrect words, spellings, and punctuation that were not noted inchecking the note before s franci.DIAGNOSIS FOR VISIT:CardiomegalyHISTORY OF PRESENT ILLNESSAbbey Resendiz is a 71-year-old woma n who [facility] assisted dee 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 She knows [...] to Dr. Wills's office.Referring Provider: JONY PACHECO [[id number]]Allergies As of Date: 08/14/2017 Noted Allergy ReactionCOLCHICINE 2 8 - GI UpsetDate Reviewed: 08/14/2017Reviewed by: Josafat (Rn) MIKAYLA Ames - Fully AssessedReason for Vis it: New Patient [172]Primary Visit Diagnosis:LBBB (left bundle branch block) [I44.7]Order(s):ECG B/O W IN TERP (MED OFFICE) [ECG06] Order #: [id number] ECHO [019786] Order #: [id number]: 1 FUTURE BASI C METABOLIC PNL [SQBMP] Order #: [id number] FUTURE CBC [SQCBC] Order #: [id number] FUTURE TSH BLD [S QTSH] Order #: [id number] FUTURE MAGNESIUM BLD [SQMG1] Order #: [id number] FUTUREPrescriptions as of Sig: FERROUS SULFATE 325 [...] following areas and comm it to making chcf changes. EAT A WHOLE FOOD, PLANT BASED [...] filed during this visit:Extended VitalsEncount er Number: [id number] Status:Closed by LAWSON MADRIGAL MD on 08/14/17 glucose,bedside on 2017-02-07 Glucose mass conc 107 70-100 mg/dL High 02-07-2017 [facility] (98622) Comment: Result Comment: Test perform ed by glucose meter. Results may be 10%-15% lowerthan serum/plasma value s. (CLIA ID [id number]) Performed By: #### HEMDF, PT /AP, CMP3, TSH4, B12, BNP3, RPR ####[address] [address] echo complete w/wo contrast on 2017-02-07 Echo Patient Name: ABBEY RESENDIZ [id number] Normal 02-07-2017 [facility] Complete Ultrasound Exam Date/T elyssa 02/07/2017 09:59:54 EDT Exam Echo Complete Health w/wo w/wo Contrast Ordering Physician MD WHYTE LORI Accession Number System Contrast [id number] Reason For Exam pulmonary embolus Report TRANSTHORACIC (96041) ECHOCARDIOGRAM PATIENT: Abbey Resendiz STUDY DATE: 2016 : 1945 [id number] AGE: 71 HT/WT: 152.4 cm (60 66.7 kg (146.7 in) lb) GENDER: F BP: 1 LOCATION: [facility] PATIENT Outpatient [facility] STATUS: *ORDERING PHYSICIAN: * Kandice Whyte *READING PHYSICIAN: * Arthur hendrickson MD *ASSISTANT TEACHING PROFESSOR: * Edgar Antunez --- INDICATIONS: Pulmonary embolism. [...] Bilirubin Patient Name: ABBEY RESENDIZ FIN: [id number] Normal 02-06-2017 [facility] (total) Ultrasound Exam Date/Time 02/06/2017 10:43 :01 EDT Exam VL Venous Health Duplex US Lower Ext Bilateral Ordering Physician JENNY TSANG , [place] Accession Number [id number] CPT4 Codes 11681 () Reason Fo r Exam edema, (96693) pain, elevated d-dimer Report [facility] --- Lower Extremity Venous Duplex Report Patient Name: Abbey Oliveros : 1945 Study 02/06/2017 (71yrs) Date: Age: 71 Account: [id number] Gender: F Loc: [facility] 8711 BP: Ordering: Nolvia Tsang Technologist: Antonio Lao n: Nolvia Tsang Tool Polishing Machine Operator: Neli Shaw hysician: Safia Cloud --- Location: [facility] INDICATIONS: Edema b ilateral ankle and foot. [...] DATA: [facility] Birth[facility]: Patient birthdate: 1945. Age: Patient is 71 yr old. Sex: Gender: female. Ethnicity: Ethnicity: white. Doppler flow [facility] including spectral analysis, color and solis scale imaging. Patient sta tus: Observation. Procedure: A vascular evaluation was perf ormed. The images were obtained using a Solulink E9 vascular ultrasound machine. --- VENOUS FLOW [...] +------ --+ Electronically signed by: Safia Cloud [id number]:56: 45 Final Dictated: 02/06/2017 10:57 am Dictating Physicia n: SAFIA CLOUD Signed Date and Time: 02/06/2017 10:56 am Signed by: SAFIA CLOUD urinalysis,microscopic on 2017-02-06 Urine, bacteria in Few (1-5) Negative Normal 02-06-2017 [facility] sediment (77528) Comment: Performed By: #### HEMDF, PT /AP, CMP3, TSH4, B12, BNP3, RPR ####[place] [address] [place] [address] Urine, epithelial cells in 0-2 3-5 Normal [facility] (05148) sediment Comment: Performed By: #### HEMDF, PT /AP, CMP3, TSH4, B12, BNP3, RPR ####[place] [address] [place] [address] Urine, erythrocytes in Negative 0-2 /[HPF] Normal 017 [facility] sediment by area (00 000) Comment: Performed By: #### HEMDF, PT /AP, CMP3, TSH4, B12, BNP3, RPR ####[place] [address] [place] [address] Urine, leukocytes in 11-25 0-5 Normal 7 [facility] sedmiment (70031) Comment: Performed By: #### HEMDF, PT /AP, CMP3, TSH4, B12, BNP3, RPR ####[place] [address] [place] [address] Urine, yeast presence in Few (1-5) Negative Normal 02-06 [facility] sediment (85272) Comment: Performed By: #### HEMDF, PT /AP, CMP3, TSH4, B12, BNP3, RPR ####[place] [address] [place] [address] urinalysis,macro on 2017-02-06 Bilirubin (direct) NEG Negative mg/dL Normal 02-06-2017 [facility] [facility] ([id number]) Comment: Performed By: #### HEMDF, PT /AP, CMP3, TSH4, B12, BNP3, RPR ####[place] [address] [place] [address] Ketone,Urine NEG Negative Normal 02-06-2017 [facility] (60715) Comment: Performed By: #### HEMDF, PT /AP, CMP3, TSH4, B12, BNP3, RPR ####[place] [address] [place] [address] Occult Blood,Ur NEG Negative Normal 02-06-2017 [facility] (45847) Comment: Performed By: #### HEMDF, PT /AP, CMP3, TSH4, B12, BNP3, RPR ####[place] [address] [place] [address] Specific [place],Urine 1.005 1.005-1.030 Normal 02-06 [facility] (73486) Comment: Performed By: #### HEMDF, PT /AP, CMP3, TSH4, B12, BNP3, RPR ####[place] [address] [place] [address] Total Protein,Urine NEG Negative Normal 02-06-2017 [facility] (42334) Comment: Performed By: #### HEMDF, PT /AP, CMP3, TSH4, B12, BNP3, RPR ####[place] [address] [place] [address] Urine, appearance clear Clear Normal 02-06-2017 [facility] ([id number]) Comment: Performed By: #### HEMDF, PT /AP, CMP3, TSH4, B12, BNP3, RPR ####[place] [address] [place] [address] Urine, color p. yel Lt. Yellow Normal 02-06-2017 [facility] ([id number]) Comment: Performed By: #### HEMDF, PT /AP, CMP3, TSH4, B12, BNP3, RPR ####[place] [address] [place] [address] Urine, glucose presence NORM Negative Normal 2016 [facility] (81233) Comment: Performed By: #### HEMDF, PT /AP, CMP3, TSH4, B12, BNP3, RPR ####[place] [address] [place] [address] Urine, nitrite presence NEG Negative Normal 2016 [facility] (50933) Comment: Performed By: #### HEMDF, PT /AP, CMP3, TSH4, B12, BNP3, RPR ####[place] [address] [place] [address] Urine, pH 5.0 5.0-8.0 [pH] Normal 02-06-2017 [facility] (79230) Comment: Performed By: #### HEMDF, PT /AP, CMP3, TSH4, B12, BNP3, RPR ####[place] [address] [place] [address] Urine, urobilinogen NORM 0-1 Normal 02-06-2017 [facility] (28748) Comment: Performed By: #### HEMDF, PT /AP, CMP3, TSH4, B12, BNP3, RPR ####[place] [address] [place] [address] WBC (Leukocytes) 1+ Negative Normal 02-06-2017 [facility] (98913) Comment: Performed By: #### HEMDF, PT /AP, CMP3, TSH4, B12, BNP3, RPR ####[place] [address] [place] [address] troponin i on 02-06 Troponin I.cardiac < 0.015 0.000-0.045 ng/mL Normal 7 [facility] mass conc (21324) Comment: Result Comment: 0.046 - 0.40 0 = Indeterminate> 0.400 = Consider Myocardial Injury Performed By: #### HEMDF, AP TT, PT, CMP3, BNP3, DDI, TSH4, LIPD2, TROPN ####[address] [place] [address] thyroid stim. hormone on 2017-02-06 Thyroid Stim. Hormone 4.510 0.358-3.740 uU/mL High 2016 [facility] (74141) Comment: Performed By: #### HEMDF, AP TT, PT, CMP3, BNP3, DDI, TSH4, LIPD2, TROPN ####[place] [address] [place] [address] prothrombin time on 2017-02-06 INR Coag RelTime (PPP) 0.9 0.9-1.1 {INR} Normal 017 [facility] (09019) Comment: Result Comment: Recommended Anticoagulant Therapy:SEE BELOW----- [...] PT, CMP3, BNP3, DDI, TSH4, LIPD2, TROPN ####[place] [address] [place] [address] Prothrombin time (PT) Coag 9.7 9.0-12.0 s Normal [facility] time (PPP) (65481) Comment: Result Comment: . Performed By: #### HEMDF, AP TT, PT, CMP3, BNP3, DDI, TSH4, LIPD2, TROPN ####[address] [address] nt pro bnp on 02-06 BNP 310 0-125 pg/mL High 02-06-2017 [facility] (23453) Comment: Performed By: #### HEMDF, AP TT, PT, CMP3, BNP3, DDI, TSH4, LIPD2, TROPN ####[address] [address] lipid panel on 2016 Cholesterol to HDL Ratio 3 Normal 02-06 [facility] (73489) Comment: Result Comment: Ref Range:< 3 Low Risk for CHD3-6 Mod Risk for CHD> 6 High Risk for CHD Performed By: #### HEMDF, AP TT, PT, CMP3, BNP3, DDI, TSH4, LIPD2, TROPN ####[address] [address] HDL Cholesterol 50 40-59 mg/dL Normal 02-06-2017 [facility] (33739) Comment: Performed By: #### HEMDF, AP TT, PT, CMP3, BNP3, DDI, TSH4, LIPD2, TROPN ####[address] [address] Low Density Lipoprotein 76 <100 mg/dL Normal 2016 [facility] (89227) Comment: Performed By: #### HEMDF, AP TT, PT, CMP3, BNP3, DDI, TSH4, LIPD2, TROPN ####[address] [address] Triglyceride 180 <150 mg/dL Abnormal 02-06-2017 [facility] (57400) Comment: Performed By: #### HEMDF, AP TT, PT, CMP3, BNP3, DDI, TSH4, LIPD2, TROPN ####[address] [address] Cholesterol 162 < 200 mg/dL Normal 02-06-2017 [facility] (75676) Comment: Performed By: #### HEMDF, AP TT, PT, CMP3, BNP3, DDI, TSH4, LIPD2, TROPN ####[address] [address] hemogram w/ autodiff on 2017-02-06 Abs Baso Cnt 0.0 0.0-0.2 10*3/uL Normal 02-06-2017 [facility] (62624) Comment: Performed By: #### HEMDF, AP TT, PT, CMP3, BNP3, DDI, TSH4, LIPD2, TROPN ####[address] [address] Basophils/100 WBC Auto (Bld) 0.5 % Normal 0 02-06-2017 [facility] (15562) Comment: Performed By: #### HEMDF, AP TT, PT, CMP3, BNP3, DDI, TSH4, LIPD2, TROPN ####[place] [address] [place] [address] Eosinophils 0.1 0.0-0.5 10*3/uL Normal 02-06-2017 [facility] (73606) Comment: Performed By: #### HEMDF, AP TT, PT, CMP3, BNP3, DDI, TSH4, LIPD2, TROPN ####[address] [address] Eosinophils/100 leukocytes 2.1 % Normal [facility] (67221) Comment: Performed By: #### HEMDF, AP TT, PT, CMP3, BNP3, DDI, TSH4, LIPD2, TROPN ####[address] [address] Erythrocyte distribution 13.6 11.5-14.5 % Normal 02-06 [facility] width Auto Ratio (RBC) (77793) Comment: Performed By: #### HEMDF, AP TT, PT, CMP3, BNP3, DDI, TSH4, LIPD2, TROPN ####[address] [address] Erythrocytes (RBC) 3.92 3.80-5.20 10*6/uL Normal 02-06-2017 [facility] (58057) Comment: Performed By: #### HEMDF, AP TT, PT, CMP3, BNP3, DDI, TSH4, LIPD2, TROPN ####[address] [address] Granulocytes/100 WBC (Bld) 66.7 % Normal [facility] (20344) Comment: Performed By: #### HEMDF, AP TT, PT, CMP3, BNP3, DDI, TSH4, LIPD2, TROPN ####[place] [address] Hematocrit (HCT) 35.7 35.0-47.0 % Normal 02-06-2017 [facility] (25863) Comment: Performed By: #### HEMDF, AP TT, PT, CMP3, BNP3, DDI, TSH4, LIPD2, TROPN ####[address] [address] Hemoglobin mass conc 12.1 11.7-16.0 g/dL Normal 7 [facility] (Bld) (82081) Comment: Performed By: #### HEMDF, AP TT, PT, CMP3, BNP3, DDI, TSH4, LIPD2, TROPN ####[place] [address] Lymphocytes 1.7 1.0-4.3 10*3/uL Normal 02-06-2017 [facility] (51117) Comment: Performed By: #### HEMDF, AP TT, PT, CMP3, BNP3, DDI, TSH4, LIPD2, TROPN ####[address] [address] Lymphocytes/100 leukocytes 24.5 % Normal [facility] (16160) Comment: Performed By: #### HEMDF, AP TT, PT, CMP3, BNP3, DDI, TSH4, LIPD2, TROPN ####[address] [address] MCH 30.7 26.0-34.0 pg Normal 02-06-2017 [facility] (87564) Comment: Performed By: #### HEMDF, AP TT, PT, CMP3, BNP3, DDI, TSH4, LIPD2, TROPN ####[place] [address] MCHC mass conc (RBC) 33.8 32.0-36.0 % Normal 7 [facility] (83427) Comment: Performed By: #### HEMDF, AP TT, PT, CMP3, BNP3, DDI, TSH4, LIPD2, TROPN ####[address] [address] MCV 91.0 79.0-98.0 fL Normal 02-06-2017 [facility] (44669) Comment: Performed By: #### HEMDF, AP TT, PT, CMP3, BNP3, DDI, TSH4, LIPD2, TROPN ####[address] [address] Monocytes 0.4 0.0-0.8 10*3/uL Normal 02-06-2017 [facility] (33930) Comment: Performed By: #### HEMDF, AP TT, PT, CMP3, BNP3, DDI, TSH4, LIPD2, TROPN ####[address] [address] Monocytes/100 leukocytes 6.2 % Normal 02-06 [facility] (50149) Comment: Performed By: #### HEMDF, AP TT, PT, CMP3, BNP3, DDI, TSH4, LIPD2, TROPN ####[address] [address] Neutrophils 4.7 1.8-7.0 10*3/uL Normal 02-06-2017 [facility] (87528) Comment: Performed By: #### HEMDF, AP TT, PT, CMP3, BNP3, DDI, TSH4, LIPD2, TROPN ####[address] [address] Platelet mean volume (PMV) 9.3 7.4-10.4 fL Normal [facility] (04180) Comment: Performed By: #### HEMDF, AP TT, PT, CMP3, BNP3, DDI, TSH4, LIPD2, TROPN ####[address] [place] [address] Platelets 169 140-440 10*3/uL Normal 02-06-2017 [facility] (42031) Comment: Performed By: #### HEMDF, AP TT, PT, CMP3, BNP3, DDI, TSH4, LIPD2, TROPN ####[address] [address] WBC (Leukocytes) 7.0 3.6-10.7 10*3/uL Normal 02-06-2017 [facility] (61230) Comment: Performed By: #### HEMDF, AP TT, PT, CMP3, BNP3, DDI, TSH4, LIPD2, TROPN ####[address] [address] glucose,bedside on 2017-02-06 Glucose mass conc 216 70-100 mg/dL High 02-06-2017 [facility] (67477) Comment: Result Comment: Test perform ed by glucose meter. Results may be 10%-15% lowerthan serum/plasma value s. (CLIA ID [id number]) Performed By: #### HEMDF, PT /AP, CMP3, TSH4, B12, BNP3, RPR ####[address] [address] Glucose mass conc 157 70-100 mg/dL High 02-06-2017 [facility] (61444) Comment: Result Comment: Test perform ed by glucose meter. Results may be 10%-15% lowerthan serum/plasma value s. (CLIA ID [id number]) Performed By: #### HEMDF, PT /AP, CMP3, TSH4, B12, BNP3, RPR ####[address] [address] Glucose mass conc 111 70-100 mg/dL High 02-06-2017 [facility] (12366) Comment: Result Comment: Test perform ed by glucose meter. Results may be 10%-15% lowerthan serum/plasma value s. (CLIA ID [id number]) Performed By: #### BGLU #### [address] [place] [address] Glucose mass conc 121 70-100 mg/dL High 02-06-2017 [facility] (45087) Comment: Result Comment: Test perform ed by glucose meter. Results may be 10%-15% lowerthan serum/plasma value s. (CLIA ID [id number]) Performed By: #### BGLU #### [place] [address] [place] [address] d-dimer, innovance on 2017-02-06 D-Dimer, Innovance 3.44 0.17-0.59 ug{FEU}/mL High 02-06-2017 [facility] [facility] (53852) Comment: Result Comment: Innovance D- Dimer values of <0.50 mg/L FEU can be used incombination with a pre-braxton t probability model (e.g. Well's)to exclude pulmonary embolism (PE) dise ase, as well as alyssa in the diagnosis of deep vein thrombosis (DVT). Performed By: #### HEMDF, AP TT, PT, CMP3, BNP3, DDI, TSH4, LIPD2, TROPN ####[place] [address] [place] [address] cta chest w/ + w/o contrast on 2017-02-06 CTA Chest w/ + w/o Patient Name: Lucien RESENDIZ 02-06-2017 [facility] ([id number]) CT Exam Date/Time 02/06/2017 04:32:28 EDT Exam CTA Chest w/ + w/o Contrast Ordering Physician JENNY TSANG [place] Accession Number [id number] CPT4 Codes 06949 (), Q9967 () Reason For Exam DYSPNEA, [...] Alkaline phosphatase (ALP) 80 45-117 U/L Normal [facility] (14862) Comment: Performed By: #### HEMDF, AP TT, PT, CMP3, BNP3, DDI, TSH4, LIPD2, TROPN ####[address] [address] Anion gap 7 mmol/L Normal 02-06-2017 [facility] (19304) Comment: Performed By: #### HEMDF, AP TT, PT, CMP3, BNP3, DDI, TSH4, LIPD2, TROPN ####[address] [address] Bilirubin (total) 0.4 0.2-1.0 mg/dL Normal 02-06-2017 [facility] (77004) Comment: Performed By: #### HEMDF, AP TT, PT, CMP3, BNP3, DDI, TSH4, LIPD2, TROPN ####[address] [address] Protein 7.3 6.4-8.2 g/dL Normal 02-06-2017 [facility] (71608) Comment: Performed By: #### HEMDF, AP TT, PT, CMP3, BNP3, DDI, TSH4, LIPD2, TROPN ####[place] [address] Alanine aminotransferase (ALT) 31 12-78 U/L Normal 02-06-2017 [facility] (71614) Comment: Performed By: #### HEMDF, AP TT, PT, CMP3, BNP3, DDI, TSH4, LIPD2, TROPN ####[place] [address] Aspartate aminotransferase (AST) 14 15-37 U/L Low 02-06-2017 [facility] (33170) Comment: Performed By: #### HEMDF, AP TT, PT, CMP3, BNP3, DDI, TSH4, LIPD2, TROPN ####[place] [address] Creatinine 1.25 0.55-1.40 mg/dL Normal 02-06-2017 [facility] (18404) Comment: Performed By: #### HEMDF, AP TT, PT, CMP3, BNP3, DDI, TSH4, LIPD2, TROPN ####[place] [address] eGFR (black) 50.8 >60 mL/min Normal 02-06-2017 [facility] (69608) Comment: Performed By: #### HEMDF, AP TT, PT, CMP3, BNP3, DDI, TSH4, LIPD2, TROPN ####[place] [address] eGFR (non-black) 42.0 >60 mL/min Normal 02-06-2017 [facility] (76780) Comment: Result Comment: Source- MDRD equation with creatinine calibration to IDMS(NKDEP)eGFR not recommen ded for drug dose adjustment Performed By: #### HEMDF, AP TT, PT, CMP3, BNP3, DDI, TSH4, LIPD2, TROPN ####[address] [place] [address] Albumin 3.2 3.4-5.0 g/dL Low 02-06-2017 [facility] (67414) Comment: Performed By: #### HEMDF, AP TT, PT, CMP3, BNP3, DDI, TSH4, LIPD2, TROPN ####[address] [place] [address] Urea nitrogen 14 7-25 mg/dL Normal 02-06-2017 [facility] (86788) Comment: Performed By: #### HEMDF, AP TT, PT, CMP3, BNP3, DDI, TSH4, LIPD2, TROPN ####[place] [address] Calcium 8.6 8.2-10.1 mg/dL Normal 02-06-2017 [facility] (36549) Comment: Performed By: #### HEMDF, AP TT, PT, CMP3, BNP3, DDI, TSH4, LIPD2, TROPN ####[place] [address] CO2 24 21-32 mmol/L Normal 02-06-2017 [facility] (82465) Comment: Performed By: #### HEMDF, AP TT, PT, CMP3, BNP3, DDI, TSH4, LIPD2, TROPN ####[place] [address] Glucose mass conc 58 70-100 mg/dL Low 02-06-2017 [facility] (21070) Comment: Performed By: #### HEMDF, AP TT, PT, CMP3, BNP3, DDI, TSH4, LIPD2, TROPN ####[place] [address] Chloride 109 98-109 mmol/L Normal 02-06-2017 [facility] (17960) Comment: Performed By: #### HEMDF, AP TT, PT, CMP3, BNP3, DDI, TSH4, LIPD2, TROPN ####[address] [place] [address] Potassium molar conc 3.3 3.5-5.1 mmol/L Low 7 [facility] (48379) Comment: Performed By: #### HEMDF, AP TT, PT, CMP3, BNP3, DDI, TSH4, LIPD2, TROPN ####[address] [address] Sodium 140 135-145 mmol/L Normal 02-06-2017 [facility] (29650) Comment: Performed By: #### HEMDF, AP TT, PT, CMP3, BNP3, DDI, TSH4, LIPD2, TROPN ####[address] [address] basic metabolic panel on 2017-02-06 Anion gap 8 mmol/L Normal 02-06-2017 [facility] (01008) Comment: Performed By: #### BMP3 #### [place] [address] Creatinine 1.23 0.55-1.40 mg/dL Normal 02-06-2017 [facility] (72900) Comment: Performed By: #### BMP3 #### [place] [address] eGFR (black) 51.8 >60 mL/min Normal 02-06-2017 [facility] (29670) Comment: Performed By: #### BMP3 #### [address] [address] eGFR (non-black) 42.7 >60 mL/min Normal 02-06-2017 [facility] (73433) Comment: Result Comment: Source- MDRD equation with creatinine calibration to IDMS(NKDEP)eGFR not recommen ded for drug dose adjustment Performed By: #### BMP3 #### [address] [place] [id number] CO2 27 21-32 mmol/L Normal 02-06-2017 [facility] (26460) Comment: Performed By: #### BMP3 #### [address] [place] [address] Glucose mass conc 109 70-100 mg/dL High 02-06-2017 [facility] (13899) Comment: Performed By: #### BMP3 #### [address] [address] Urea nitrogen 14 7-25 mg/dL Normal 02-06-2017 [facility] (64990) Comment: Performed By: #### BMP3 #### [address] [address] Calcium 8.6 8.2-10.1 mg/dL Normal 02-06-2017 [facility] (24072) Comment: Performed By: #### BMP3 #### [address] [address] Chloride 107 98-109 mmol/L Normal 02-06-2017 [facility] (42867) Comment: Performed By: #### BMP3 #### [address] [address] Potassium molar conc 3.7 3.5-5.1 mmol/L Normal 7 [facility] (45581) Comment: Performed By: #### BMP3 #### [address] [address] Sodium 142 135-145 mmol/L Normal 02-06-2017 [facility] (56781) Comment: Performed By: #### BMP3 #### [address] [address] aptt on 2017-02-06 aPTT 22.0 20.0-30.5 s Normal 02-06-2017 [facility] (34344) Comment: Result Comment: NOTE: The th erapeutic time for Heparin anticoagulation,based on Xa activity inhibition, i s an APTT of 46-80seconds. Performed By: #### HEMDF, AP TT, PT, CMP3, BNP3, DDI, TSH4, LIPD2, TROPN ####[address] [address] hemogram on 2017-01 Erythrocyte distribution 14.0 11.5-14.5 % Normal 01-24 [facility] width Auto Ratio (RBC) (79460) Comment: Performed By: #### BMP3, HEM OG ####[address] [place] [address] Erythrocytes (RBC) 3.52 3.80-5.20 10*6/uL Low 01-24-2017 [facility] (31992) Comment: Performed By: #### BMP3, HEM OG ####[address] [address] [place] [address] Hematocrit (HCT) 31.3 35.0-47.0 % Low 01-24-2017 [facility] (59606) Comment: Performed By: #### BMP3, HEM OG ####[place] [address] Hemoglobin mass conc (Bld) 10.7 11.7-16.0 g/dL Low [facility] (37947) Comment: Performed By: #### BMP3, HEM OG ####[address] [place] [address] MCH 30.3 26.0-34.0 pg Normal 01-24-2017 [facility] (37457) Comment: Performed By: #### BMP3, HEM OG ####[address] [place] [address] MCHC mass conc (RBC) 34.1 32.0-36.0 % Normal 7 [facility] (54709) Comment: Performed By: #### BMP3, HEM OG ####[address] [place] [address] MCV 89.0 79.0-98.0 fL Normal 01-24-2017 [facility] (04716) Comment: Performed By: #### BMP3, HEM OG ####[address] [place] [address] Platelet mean volume (PMV) 9.8 7.4-10.4 fL Normal [facility] (94955) Comment: Performed By: #### BMP3, HEM OG ####[place] [address] [place] [address] Platelets 133 140-440 10*3/uL Low 01-24-2017 [facility] (29632) Comment: Performed By: #### BMP3, HEM OG ####[place] [address] [place] [address] WBC (Leukocytes) 4.0 3.6-10.7 10*3/uL Normal 01-24-2017 [facility] (60064) Comment: Performed By: #### BMP3, HEM OG ####[address] [address] [place] [address] glucose,bedside on 2017-01-24 Glucose mass conc 399 70-100 mg/dL High 01-24-2017 [facility] (18201) Comment: Result Comment: Test perform ed by glucose meter. Results may be 10%-15% lowerthan serum/plasma value s. (CLIA ID [id number]) Performed By: #### BGLU #### [address] [place] [address] Glucose mass conc 197 70-100 mg/dL High 01-24-2017 [facility] (38595) Comment: Result Comment: Test perform ed by glucose meter. Results may be 10%-15% lowerthan serum/plasma value s. (CLIA ID [id number]) Performed By: #### BGLU #### [address] [place] [address] Glucose mass conc 263 70-100 mg/dL High 01-24-2017 [facility] (51375) Comment: Result Comment: Test perform ed by glucose meter. Results may be 10%-15% lowerthan serum/plasma value s. (CLIA ID [id number]) Performed By: #### BGLU #### [address] [place] [address] Glucose mass conc 249 70-100 mg/dL High 01-24-2017 [facility] (76236) Comment: Result Comment: Test perform ed by glucose meter. Results may be 10%-15% lowerthan serum/plasma value s. (CLIA ID [id number]) Performed By: #### BGLU #### [address] [place] [address] basic metabolic panel on 2017-01-24 Anion gap 9 mmol/L Normal 01-24-2017 [facility] (52110) Comment: Performed By: #### BMP3, HEM OG ####[address] [place] [address] Creatinine 1.13 0.55-1.40 mg/dL Normal 01-24-2017 [facility] (35321) Comment: Performed By: #### BMP3, HEM OG ####[address] [place] [address] eGFR (black) 57.1 >60 mL/min Normal 01-24-2017 [facility] (30285) Comment: Performed By: #### BMP3, HEM OG ####[address] [place] [address] eGFR (non-black) 47.1 >60 mL/min Normal 01-24-2017 [facility] (99225) Comment: Result Comment: Source- MDRD equation with creatinine calibration to IDMS(NKDEP)eGFR not recommen ded for drug dose adjustment Performed By: #### BMP3, HEM OG ####[address] [place] [address] Glucose mass conc 223 70-100 mg/dL High 01-24-2017 [facility] (50681) Comment: Performed By: #### BMP3, HEM OG ####[address] [place] [address] Urea nitrogen 24 7-25 mg/dL Normal 01-24-2017 [facility] (09362) Comment: Performed By: #### BMP3, HEM OG ####[address] [place] [address] Calcium 8.1 8.2-10.1 mg/dL Low 01-24-2017 [facility] (53327) Comment: Performed By: #### BMP3, HEM OG ####[facility] [place] [address] CO2 21 21-32 mmol/L Normal 01-24-2017 [facility] (84844) Comment: Performed By: #### BMP3, HEM OG ####[address] [place] [address] Chloride 110 98-109 mmol/L High 01-24-2017 [facility] (66168) Comment: Performed By: #### BMP3, HEM OG ####[place] [address] [place] [address] Potassium molar conc 4.3 3.5-5.1 mmol/L Normal 7 [facility] (97350) Comment: Performed By: #### BMP3, HEM OG ####[address] [place] [address] Sodium 140 135-145 mmol/L Normal 01-24-2017 [facility] (44828) Comment: Performed By: #### BMP3, HEM OG ####[address] [place] [address] rpr, qual on 01-23 RPR, Qual NONREACTIVE Non-Reactive Normal 01-23-2017 [facility] (87998) Comment: Performed By: #### UAFRAN, UA NIGEL ####[address] [place] [address] hiv 1,2 ab; p24 ag on 2017-01-23 HIV 1,2 Ab; p24 Ag NONREACTIVE Nonreactive Normal 017 [facility] (07836) Comment: Result Comment: Results obta ined using [...] charge. Performed By: #### UAMAC, UA NIGEL ####[address] [place] [address] hemogram on 2017-01 Erythrocyte distribution 14.3 11.5-14.5 % Normal 01-23 [facility] width Auto Ratio (RBC) (65491) Comment: Performed By: #### UAMAC, UA NIGEL ####[address] [place] [address] Erythrocytes (RBC) 3.77 3.80-5.20 10*6/uL Low 01-23-2017 [facility] (70516) Comment: Performed By: #### UAMAC, UA NIGEL ####[address] [place] [address] Hematocrit (HCT) 33.6 35.0-47.0 % Low 01-23-2017 [facility] (31151) Comment: Performed By: #### UAMAC, UA NIGEL ####[address] [place] [address] Hemoglobin mass conc (Bld) 11.4 11.7-16.0 g/dL Low [facility] ([id number]) Comment: Performed By: #### UAMAC, UA NIGEL ####[address] [place] [address] MCH 30.3 26.0-34.0 pg Normal 01-23-2017 [facility] ([id number]) Comment: Performed By: #### UAMAC, UA NIGEL ####[address] [place] [address] MCHC mass conc (RBC) 34.0 32.0-36.0 % Normal 7 [facility] ([id number]) Comment: Performed By: #### UAMAC, UA NIGEL ####[address] [place] [address] MCV 89.2 79.0-98.0 fL Normal 01-23-2017 [facility] ([id number]) Comment: Performed By: #### UAMAC, UA NIGEL ####[address] [place] [address] Platelet mean volume (PMV) 10.6 7.4-10.4 fL High [facility] ([id number]) Comment: Performed By: #### UAMAC, UA NIGEL ####[address] [place] [address] Platelets 140 140-440 10*3/uL Normal 01-23-2017 [facility] ([id number]) Comment: Performed By: #### UAMAC, UA NIGEL ####[address] [place] [address] WBC (Leukocytes) 5.2 3.6-10.7 10*3/uL Normal 01-23-2017 [facility] ([id number]) Comment: Performed By: #### UAMAC, UA NIGEL ####[address] [place] [address] glucose,bedside on 2017-01-23 Glucose mass conc 104 70-100 mg/dL High 01-23-2017 [facility] ([id number]) Comment: Result Comment: Test perform ed by glucose meter. Results may be 10%-15% lowerthan serum/plasma value s. (CLIA ID [id number]) Performed By: #### BGLU #### [address] [place] [address] Glucose mass conc 98 70-100 mg/dL Normal 01-23-2017 [facility] ([id number]) Comment: Result Comment: Test perform ed by glucose meter. Results may be 10%-15% lowerthan serum/plasma value s. (CLIA ID [id number]) Performed By: #### UAMAC, UA NIGEL ####[address] [place] [address] Glucose mass conc 90 70-100 mg/dL Normal 01-23-2017 [facility] ([id number]) Comment: Result Comment: Test perform ed by glucose meter. Results may be 10%-15% lowerthan serum/plasma value s. (CLIA ID [id number]) Performed By: #### UAMAC, UA NIGEL ####[address] [place] [address] Glucose mass conc 98 70-100 mg/dL Normal 01-23-2017 [facility] ([id number]) Comment: Result Comment: Test perform ed by glucose meter. Results may be 10%-15% lowerthan serum/plasma value s. (CLIA ID [id number]) Performed By: #### UAMAC, UA NIGEL ####[address] [place] [address] basic metabolic panel on 2017-01-23 Anion gap 9 mmol/L Normal 01-23-2017 [facility] ([id number]) Comment: Performed By: #### UAMAC, UA NIGEL ####[address] [place] [address] Creatinine 1.13 0.55-1.40 mg/dL Normal 01-23-2017 [facility] (05155) Comment: Performed By: #### UAMAC, UA NIGEL ####[address] [place] [address] eGFR (black) 57.1 >60 mL/min Normal 01-23-2017 [facility] (34443) Comment: Performed By: #### UAMAC, UA NIGEL ####[address] [place] [address] eGFR (non-black) 47.1 >60 mL/min Normal 01-23-2017 [facility] (58715) Comment: Result Comment: Source- MDRD equation with creatinine calibration to IDMS(NKDEP)eGFR not recommen ded for drug dose adjustment Performed By: #### UAMAC, UA NIGEL ####[address] [place] [address] Calcium 8.3 8.2-10.1 mg/dL Normal 01-23-2017 [facility] (51113) Comment: Performed By: #### UAMAC, UA NIGEL ####[address] [place] [address] CO2 21 21-32 mmol/L Normal 01-23-2017 [facility] (26683) Comment: Performed By: #### UAMAC, UA NIGEL ####[address] [place] [address] Glucose mass conc 93 70-100 mg/dL Normal 01-23-2017 [facility] (55040) Comment: Performed By: #### UAMAC, UA NIGEL ####[address] [place] [address] Urea nitrogen 24 7-25 mg/dL Normal 01-23-2017 [facility] (16990) Comment: Performed By: #### UAMAC, UA NIGEL ####[address] [place] [address] Chloride 113 98-109 mmol/L High 01-23-2017 [facility] (12069) Comment: Performed By: #### UAMAC, UA NIGEL ####[address] [place] [address] Potassium molar conc 3.8 3.5-5.1 mmol/L Normal 7 [facility] (10872) Comment: Performed By: #### UAMAC, UA NIGEL ####[address] [place] [address] Sodium 143 135-145 mmol/L Normal 01-23-2017 [facility] (01112) Comment: Performed By: #### UAMAC, UA NIGEL ####[address] [place] [address] vitamin b12 on 2016 Cobalamins (Vitamin B12) 425 193-986 pg/mL Normal 01-22 [facility] (43818) Comment: Performed By: #### HEMDF, PT /AP, CMP3, TSH4, B12, BNP3, RPR ####[address] [place] [address] urinalysis,microscopic on 2017-01-22 Urine, bacteria in present Negative Normal 01-22-2017 [facility] sediment (62520) Comment: Result Comment: unable to qu antitate due to large amount of wbc's Performed By: #### UAMAC, UA NIGEL ####[address] [place] [address] Urine, epithelial cells see wbc comment 3-5 Normal 01-22-2017 [facility] in sediment (09779) Comment: Performed By: #### UAMAC, UA NIGEL ####[address] [place] [address] Urine, erythrocytes in see wbc comment 0-2 Normal 0 01-22-2017 [facility] sediment by area (00 000) Comment: Performed By: #### UAMAC, UA NIGEL ####[address] [place] [address] Urine, leukocytes in see below 0-5 Normal 7 [facility] sedmiment (85132) Comment: Result Comment: Grossly load ed, unable to identify any other formed elements. Performed By: #### UAMAC, UA NIGEL ####[address] [place] [address] urinalysis,macro on 2017-01-22 Bilirubin (direct) NEG Negative mg/dL Normal 01-22-2017 [facility] (45916) Comment: Performed By: #### UAMAC, UA NIGEL ####[address] [place] [address] Ketone,Urine NEG Negative Normal 01-22-2017 [facility] (00179) Comment: Performed By: #### UAMAC, UA NIGEL ####[address] [place] [address] Occult Blood,Ur 250 Negative {RBC}/uL Normal 01-22-2017 [facility] (31734) Comment: Performed By: #### UAMAC, UA NIGEL ####[address] [place] [address] Specific [place],Urine 1.025 1.005-1.030 Normal 01-22 [facility] (37738) Comment: Performed By: #### UAMAC, UA NIGEL ####[address] [place] [address] Total Protein,Urine 150 Negative mg/dL Normal 01-22-2017 [facility] (12198) Comment: Performed By: #### UAMAC, UA NIGEL ####[address] [place] [address] Urine, appearance cloudy Clear Normal 01-22-2017 [facility] (50129) Comment: Performed By: #### UAMAC, UA NIGEL ####[address] [place] [address] Urine, color yellow Lt. Yellow Normal 01-22-2017 [facility] (45724) Comment: Performed By: #### UAMAC, UA NIGEL ####[address] [place] [address] Urine, glucose presence NORM Negative Normal 2016 [facility] (53146) Comment: Performed By: #### UAMAC, UA NIGEL ####[address] [place] [address] Urine, nitrite presence NEG Negative Normal 2016 [facility] (71968) Comment: Performed By: #### UAMAC, UA NIGEL ####[address] [place] [address] Urine, pH 5.0 5.0-8.0 [pH] Normal 01-22-2017 [facility] (74002) Comment: Performed By: #### UAMAC, UA NIGEL ####[address] [address] Urine, urobilinogen NORM 0-1 Normal 01-22-2017 [facility] (12055) Comment: Performed By: #### UAMAC, UA NIGEL ####[place] [address] WBC (Leukocytes) 2+ Negative Normal 01-22-2017 [facility] (81522) Comment: Performed By: #### UAMAC, UA NIGEL ####[place] [address] thyroid stim. hormone on 2017-01-22 Thyroid Stim. Hormone 1.470 0.358-3.740 uU/mL Normal 2016 [facility] (72483) Comment: Performed By: #### HEMDF, PT /AP, CMP3, TSH4, B12, BNP3, RPR ####[address] [address] protime on aPTT 24.2 20.0-30.5 s Normal 01-22-2017 [facility] (81436) Comment: Result Comment: NOTE: The th erapeutic time for Heparin anticoagulation,based on Xa activity inhibition, i s an APTT of 46-80seconds. Performed By: #### HEMDF, PT /AP, CMP3, TSH4, B12, BNP3, RPR ####[address] [address] INR Coag RelTime (PPP) 1.0 0.9-1.1 {INR} Normal 017 [facility] (42002) Comment: Result Comment: Recommended Anticoagulant Therapy:SEE BELOW----- [...] PT /AP, CMP3, TSH4, B12, BNP3, RPR ####[address] [address] Prothrombin time (PT) Coag 10.1 9.0-12.0 s Normal [facility] time (PPP) (29194) Comment: Result Comment: . Performed By: #### HEMDF, PT /AP, CMP3, TSH4, B12, BNP3, RPR ####[address] [address] nt pro bnp on 01-22 BNP 352 0-125 pg/mL High 01-22-2017 [facility] (06306) Comment: Performed By: #### HEMDF, PT /AP, CMP3, TSH4, B12, BNP3, RPR ####[address] [address] hemogram w/ autodiff on 2017-01-22 Abs Baso Cnt 0.0 0.0-0.2 10*3/uL Normal 01-22-2017 [facility] (94240) Comment: Performed By: #### HEMDF, PT /AP, CMP3, TSH4, B12, BNP3, RPR ####[address] [place] [address] Basophils/100 WBC Auto (Bld) 0.5 % Normal 0 01-22-2017 [facility] (54553) Comment: Performed By: #### HEMDF, PT /AP, CMP3, TSH4, B12, BNP3, RPR ####[address] [place] [address] Eosinophils 0.2 0.0-0.5 10*3/uL Normal 01-22-2017 [facility] (62291) Comment: Performed By: #### HEMDF, PT /AP, CMP3, TSH4, B12, BNP3, RPR ####[address] [place] [facility] [place] [address] Eosinophils/100 leukocytes 5.2 % Normal [facility] (11407) Comment: Performed By: #### HEMDF, PT /AP, CMP3, TSH4, B12, BNP3, RPR ####[address] [place] [address] Granulocytes/100 WBC (Bld) 61.8 % Normal [facility] (78399) Comment: Performed By: #### HEMDF, PT /AP, CMP3, TSH4, B12, BNP3, RPR ####[address] [place] [address] Lymphocytes 1.3 1.0-4.3 10*3/uL Normal 01-22-2017 [facility] (26968) Comment: Performed By: #### HEMDF, PT /AP, CMP3, TSH4, B12, BNP3, RPR ####[address] [place] [address] Lymphocytes/100 leukocytes 28.3 % Normal [facility] (65064) Comment: Performed By: #### HEMDF, PT /AP, CMP3, TSH4, B12, BNP3, RPR ####[address] [place] [address] Monocytes 0.2 0.0-0.8 10*3/uL Normal 01-22-2017 [facility] (56740) Comment: Performed By: #### HEMDF, PT /AP, CMP3, TSH4, B12, BNP3, RPR ####[address] [place] [address] Monocytes/100 leukocytes 4.2 % Normal 01-22 [facility] (39849) Comment: Performed By: #### HEMDF, PT /AP, CMP3, TSH4, B12, BNP3, RPR ####[address] [place] [address] Neutrophils 2.9 1.8-7.0 10*3/uL Normal 01-22-2017 [facility] (41204) Comment: Performed By: #### HEMDF, PT /AP, CMP3, TSH4, B12, BNP3, RPR ####[address] [address] Erythrocyte distribution 13.8 11.5-14.5 % Normal 01-22 [facility] width Auto Ratio (RBC) (15837) Comment: Performed By: #### HEMDF, PT /AP, CMP3, TSH4, B12, BNP3, RPR ####[address] [address] Erythrocytes (RBC) 3.63 3.80-5.20 10*6/uL Low 01-22-2017 [facility] (01984) Comment: Performed By: #### HEMDF, PT /AP, CMP3, TSH4, B12, BNP3, RPR ####[address] [place] [address] Hematocrit (HCT) 32.5 35.0-47.0 % Low 01-22-2017 [facility] (23664) Comment: Performed By: #### HEMDF, PT /AP, CMP3, TSH4, B12, BNP3, RPR ####[address] [address] Hemoglobin mass conc (Bld) 11.2 11.7-16.0 g/dL Low [facility] (77326) Comment: Performed By: #### HEMDF, PT /AP, CMP3, TSH4, B12, BNP3, RPR ####[address] [place] [address] MCH 30.8 26.0-34.0 pg Normal 01-22-2017 [facility] (65482) Comment: Performed By: #### HEMDF, PT /AP, CMP3, TSH4, B12, BNP3, RPR ####[address] [address] MCHC mass conc (RBC) 34.4 32.0-36.0 % Normal 7 [facility] (31339) Comment: Performed By: #### HEMDF, PT /AP, CMP3, TSH4, B12, BNP3, RPR ####[address] [address] MCV 89.6 79.0-98.0 fL Normal 01-22-2017 [facility] (97604) Comment: Performed By: #### HEMDF, PT /AP, CMP3, TSH4, B12, BNP3, RPR ####[address] [address] Platelet mean volume (PMV) 10.1 7.4-10.4 fL Normal [facility] (86951) Comment: Performed By: #### HEMDF, PT /AP, CMP3, TSH4, B12, BNP3, RPR ####[address] [address] Platelets 143 140-440 10*3/uL Normal 01-22-2017 [facility] (73400) Comment: Performed By: #### HEMDF, PT /AP, CMP3, TSH4, B12, BNP3, RPR ####[address] [address] WBC (Leukocytes) 4.6 3.6-10.7 10*3/uL Normal 01-22-2017 [facility] (61756) Comment: Performed By: #### HEMDF, PT /AP, CMP3, TSH4, B12, BNP3, RPR ####[address] [place] [address] glucose,bedside on 2017-01-22 Glucose mass conc 136 70-100 mg/dL High 01-22-2017 [facility] (40280) Comment: Result Comment: Test perform ed by glucose meter. Results may be 10%-15% lowerthan serum/plasma value s. (CLIA ID [id number]) Performed By: #### UAMAC, UA NIGEL ####[address] [place] [address] Glucose mass conc 153 70-100 mg/dL High 01-22-2017 [facility] (77805) Comment: Result Comment: Test perform ed by glucose meter. Results may be 10%-15% lowerthan serum/plasma value s. (CLIA ID [id number]) Performed By: #### UAMAC, UA NIGEL ####[address] [place] [address] culture urine on 02-02-06 CULTURE Specimen Source Comment:Urine, clean catch Normal 01-22-2017 [facility] URINE [facility] Patient name: Desmond RESENDIZ MNguyenR.N.: [id number] : 1945 System Age: 71 Sex: F Ord. ([id number]) Physician: SANAM BARAHONA Location: [address] [place] [address] Copy to: SANAM BARAHONA Adm. Date: 01/22/17 MICROBIOLOGYORDER#: [id number] COLLECTED: 01/22/17 12:10SOURCE: Urine RECEIVED: 01/22/17 12:24 OE C O M M E N T S Specimen Source Comment:Urine, clean catchCULTURE URINE FINAL 01/23/17 15:00>100,000 CFU/ml Vicenta kefyr Comment: Performed By: #### UAMAC, UA NIGEL ####[address] [address] [address] head or brain w/o contrast on 2017-01-22 CT Head or Brain Patient Name: BABAK, Lucien 0 01-22-2017 Causes w/o Contrast [facility] ([id number]) CT Exam Date/Time 01/22/2017 12:42:[address] Head or Brain w/o Contrast Ordering Physician MD BARAHONA JACOB A Accession Number [id number] CPT4 Codes 48560 () Reason For Exam Altered mental status [...] Abdomen/Pelvis w/o Patient Name: BABAK, Lucien 01-22-2017 Causes Contrast [facility] (03980) CT Exam Date/Time 01/22/2017 12:44:[address] Abdomen/Pelvis (No PO, No IV) Ordering Physician HERMES GARNETT Accession Number [id number] CPT4 Codes 76221 (CT Abdomen/Pelvis (No PO, No IV)) Reason [...] Alkaline phosphatase (ALP) 77 45-117 U/L Normal [facility] (69677) Comment: Performed By: #### HEMDF, PT /AP, CMP3, TSH4, B12, BNP3, RPR ####[address] [address] Bilirubin (total) 0.6 0.2-1.0 mg/dL Normal 01-22-2017 [facility] (03022) Comment: Performed By: #### HEMDF, PT /AP, CMP3, TSH4, B12, BNP3, RPR ####[address] [address] Protein 7.0 6.4-8.2 g/dL Normal 01-22-2017 [facility] (63685) Comment: Performed By: #### HEMDF, PT /AP, CMP3, TSH4, B12, BNP3, RPR ####[address] [address] Alanine aminotransferase (ALT) 35 12-78 U/L Normal 01-22-2017 [facility] (67522) Comment: Performed By: #### HEMDF, PT /AP, CMP3, TSH4, B12, BNP3, RPR ####[address] [place] [address] Anion gap 9 mmol/L Normal 01-22-2017 [facility] (98898) Comment: Performed By: #### HEMDF, PT /AP, CMP3, TSH4, B12, BNP3, RPR ####[address] [place] [address] Aspartate aminotransferase (AST) 10 15-37 U/L Low 01-22-2017 [facility] (02252) Comment: Performed By: #### HEMDF, PT /AP, CMP3, TSH4, B12, BNP3, RPR ####[address] [address] Creatinine 1.19 0.55-1.40 mg/dL Normal 01-22-2017 [facility] (40809) Comment: Performed By: #### HEMDF, PT /AP, CMP3, TSH4, B12, BNP3, RPR ####[address] [address] eGFR (black) 53.8 >60 mL/min Normal 01-22-2017 [facility] (09603) Comment: Performed By: #### HEMDF, PT /AP, CMP3, TSH4, B12, BNP3, RPR ####[address] [address] eGFR (non-black) 44.4 >60 mL/min Normal 01-22-2017 [facility] (34151) Comment: Result Comment: Source- MDRD equation with creatinine calibration to IDNV(NKDEP)eGFR not recommen ded for drug dose adjustment Performed By: #### HEMDF, PT /AP, CMP3, TSH4, B12, BNP3, RPR ####[address] [address] Albumin 3.2 3.4-5.0 g/dL Low 01-22-2017 [facility] (01165) Comment: Performed By: #### HEMDF, PT /AP, CMP3, TSH4, B12, BNP3, RPR ####[place] [address] [place] [address] Urea nitrogen 24 7-25 mg/dL Normal 01-22-2017 [facility] (24345) Comment: Performed By: #### HEMDF, PT /AP, CMP3, TSH4, B12, BNP3, RPR ####[address] [place] [address] Calcium 8.7 8.2-10.1 mg/dL Normal 01-22-2017 [facility] (60870) Comment: Performed By: #### HEMDF, PT /AP, CMP3, TSH4, B12, BNP3, RPR ####[address] [place] [address] CO2 22 21-32 mmol/L Normal 01-22-2017 [facility] (41814) Comment: Performed By: #### HEMDF, PT /AP, CMP3, TSH4, B12, BNP3, RPR ####[address] [place] [address] Glucose mass conc 184 70-100 mg/dL High 01-22-2017 [facility] (42837) Comment: Performed By: #### HEMDF, PT /AP, CMP3, TSH4, B12, BNP3, RPR ####[address] [place] [address] Chloride 112 98-109 mmol/L High 01-22-2017 [facility] (40871) Comment: Performed By: #### HEMDF, PT /AP, CMP3, TSH4, B12, BNP3, RPR ####[address] [place] [address] Potassium molar conc 3.8 3.5-5.1 mmol/L Normal 7 [facility] (37829) Comment: Performed By: #### HEMDF, PT /AP, CMP3, TSH4, B12, BNP3, RPR ####[address] [place] [address] Sodium 143 135-145 mmol/L Normal 01-22-2017 [facility] (16645) Comment: Performed By: #### HEMDF, PT /AP, CMP3, TSH4, B12, BNP3, RPR ####[address] [place] [address] Encounters Date Type Reason Provider Location 12-04-2017 - Ambulatory Left bundle-branch [facility] 12-05-2017 block, unspecified [facility] ([id number]) [facility] 08-14-2017 - Ambulatory [facility] 08-14-[address] [facility] [address] ([address]) 06-23-2017 Ambulatory [facility] (0 0000) 02-19-2017 Ambulatory Type 2 diabetes KEVIN PAGE [facility] mellitus with SANAM A JUN SANAM System ( [address]) unspecified A [facility] complications 02-18-2017 Ambulatory Major depressive SANAM A JUN SANAM [facility] disorder, single A JUN [facility] ([address]) episode, unspecified 02-18-2017 Ambulatory Edema, unspecified Luke Hashiguchi [facility] A JUN SANAM System (0 0000) A [facility] 02-10-2017 Ambulatory [facility] System (0 0000) A [facility] 02-06-2017 Ambulatory Paroxysmal atrial [facility] A JUN [facility] System (0 0000) A [facility] 01-28-2017 Ambulatory Vascular dementia KEVIN PAGE [facility]th without behavioral SANAM A JUN SANAM Sys tem (48639) disturbance A [facility] 01-23-2017 Ambulatory Encounter for fitting Hermes Andres SANAM S [facility] Health and adjustment of A JUN SANAM A System ( [address]) urinary device [facility] 01-22-2017 Ambulatory Calculus of ureter Tyrone [facility] A JUN SANAM A System (75982 ) [facility] 08-06-2018 Patient encounter [facility] Facility :[facility] 03-03-2018 Patient encounter [facility] Facility :[place] [facility] Payers Payer Name Policy Number Location TAJ ARELLANO DUAL ADVANTAGE [id number] [facility] MEDICARE ([id number]) [facility] ([id number]) [facility] [id number] [facility] ([id number]) [id number] [facility] ([id number]) [id number] [facility] ([id number]) [id number] [facility] ([id number]) The following information is from the original [...] BE BASED ON THE PRIMARY CLINICAL RECORDS. [facility] provides no warranty or guarantee of the accuracy or completeness of information in this document. UNRECOGNIZED CONTENT PROVIDED BELOW FOR UNRECOGNIZED SECTION INFORMATION SOURCE DATE CREATED AUTHOR AUTHOR'S ORGANIZATIO N 01/06/2018 [facility] CREATED AUTHOR AUTHOR'S ORGANIZATIO N 01/12/2018 [facility] DATE CREATED AUTHOR AUTHOR'S ORGANIZATIO N 01/13/2018 [facility] DATE CREATED AUTHOR AUTHOR'S ORGANIZATIO N 10/23/2018 [facility] DATE CREATED AUTHOR AUTHOR'S ORGANIZATIO N 02/23/2019 [facility]
--- OUTSIDE RECORDS SUMMARY | 2020-05-01 19:05 | XMS RPT_ITS | CCD ---
:1945 External Reference #:[id number] Author Organization [facility] Care Team Providers Name Role Phone KAITLIN, [...] Onset Location colchicine Translations: AOF 11-13-2011 - [facility] Other [ COLCHICINE, COLCHICINE] Ca mpus Repository Problems Active Problems Category Problem Name Status Date Location Cardiac dysrhythmias Paroxysmal atrial Active 02-06-2017 - [facility] Health fibrillation System (29253) Conduction disorders Left bundle-branch Active 08-14-2017 - [facility] block, unspecified Medical C enter (02757) Congestive heart Heart failure, Active 02-06-2017 - [facility] lt failure; nonhypertensive unspecified Sys tem (85102) Coronary atherosclerosis Atherosclerotic heart Active 017 - [facility] Health and other heart disease disease of [place] System (14264) coronary artery without angina pectoris Delirium, dementia Vascular dementia with Active 01-23-2017 [facility] amnestic and other behavioral disturbance System (52370) cognitive disorders Diabetes mellitus with Type 2 diabetes mellitus Active 2016 [facility] Health complications with unspecified System (00 000) complications Diabetes mellitus Type 2 diabetes mellitus Active 02-06-2017 [facility] Health without complication without complications System (48664) Genitourinary symptoms Encounter for fitting Active [facility] Health and ill-defined and adjustment of System (72430) conditions urinary device Heart valve disorders Nonrheumatic mitral Active 02-06-2017 [facility] Health (valve) insufficiency System (89197) Hypertension with Hypertensive heart Active 01-23-2017 [facility] Health complications and disease with heart Syst em (18154) secondary hypertension failure Mood disorders Major depressive Active 02-18-2017 [facility] disorder, single System (000 00) episode, unspecified Nutritional deficiencies Vitamin D deficiency, Active [facility] Health unspecified System (07107) Osteoarthritis Unspecified Active 02-06-2017 [facility] osteoarthritis, System (0000 0) unspecified site Other nervous system Other symptoms and signs Active 01-24-20 [facility] Health disorders involving cognitive System ( 03393) functions and awareness Thyroid disorders Hypothyroidism, Active 02-19-2017 [facility] ealth unspecified System (11639) Past or Other Problems Category Problem Name Status Date Location Administrative/social Homelessness Completed 02-19-2017 [facility] Health admission System (62909) Allergic reactions Allergy status to Completed 02-06-2017 [facility] Health other drugs, System (90764) medicaments and biological substances status Calculus of urinary Calculus of ureter Completed 01-22-2017 [facility] Health tract System (00344) Malaise and fatigue Other malaise Completed 02-19-2017 [facility] ealth System (81232) Other aftercare [facility] (current) Completed 02-19-2017 [facility] use of insulin System (15520 ) Other connective Other specified soft Completed 02-06-2017 [facility] tissue disease tissue disorders System (0 0000) Pulmonary heart Other pulmonary Completed 02-18-2017 [facility] disease embolism without acute Syste m (75345) cor pulmonale Unclassified Edema, unspecified Completed 01-23-2017 - [facility] lt System (49446) Results Result Name Value Range Unit Interpretation Flag Date Location urine culture on 07-03-02 Bacteria identified Sp. Request/Comment: - Presu rgical Sterilization Specimen received in preservative Normal 02-18-2019 [facility] Cx Nom (U) Chauhan (01073) Culture Result - No growth (<100 CFU/ml) Comment: Performed By: #### URCUL ### #[facility] [address] [place], [place] [phone] progress on 2019-02 PROGRESS HNO ID: [id number] Normal 02-18-2019 [facility] Author: Jakub Aranda) Ania [place] ([id number]) Service: ? Author Type: Physician Coke Worker Type: Progress Notes Filed: 02/22/2019 7:51 PM Note Text: [facility] [place] PATIENT INFO: Abbey Resendiz 73 year old [facility] # [id number] PCP: Jony Wills MD Referred by: Self [...] prob lems. No history of angina, CHF, PA, cardiac surgery of stents. Respiratory: Negative for [...] s. Neurologic: No history of TIA's, stroke, DETHISTLER OPERATOR tumor, impaired sensorium, hemiplegia, paraplegia or quadriplegia. [...] CNOV Office Visit (UROLWS) Normal 02-19-20 19 [facility] ABBEY RESENDIZ ([id number]) 1945 F [place] Date Time Provider Department (17384) 02/18/19 9:30 AM JAKUB ESTRELLA) UROLWS During your visit today, we recorded the following informati on about you: Pulse Blood pressure Weight Height 54/minute 145/87 78 kg 1.524 m GERMAIN Magdaleno 02/22/2019 7:51 PM Signed [facility] [place] PATIENT INFO: Abbey Resendiz 73 year old [facility] # [id number] PCP: Jony Wills MD Referred by: Self [...] prob lems. No history of angina, CHF, PA, cardiac surgery of stents. Respiratory: Negative for [...] s. Neurologic: No history of TIA's, stroke, DETHISTLER OPERATOR tumor, impaired sensorium, hemiplegia, paraplegia or quadriplegia. [...] Diagnosis:Recurrent UTI [N39.0] Order(s):UA DIP, URINE (POC) [2183932] Order #: [id number] . #:[id number] [] sulfamethoxazole-trimethoprim (BACTRIM DS) 800-160 mg per tabletTake 1 tablet by mouth twice daily for 3 days.Disp: 6 tabletRfl: 0 URINE CULTURE [SQURCUL] Order #: [id number] FUTURE Prescriptions as of 02/18/2019 Sig: FLONASE [...] 02/22/19 progress on 2018-11 PROGRESS HNO ID: [id number] Normal 12-15-2018 [facility] Author: Lawson Chauhan ([id number]) Service: ? Author Type: Physician Type: Progress Notes Filed: 12/15/2018 2:05 PM Note Text: PERTINENT CARDIAC HISTORY LBBB HTN HL DM PAF? ASHD? CHF? ADHERENCE TO GUIDELINES SONIA-I or ARB for HF with prior LVEF<40 (NQF 0081) - N/A ASA or Plavix for ASHD (NQF 0067) - N/A Beta zara for ASHD with prior PA or prior LVEF<40 (NQF 00 70) - [...] checked. She would like to follow-up with [facility] and we will assist her [...] EKG1 NAME : ABBEY RESENDIZ Normal 12-16-19 [facility] PID : [id number] Vic aparicio ([id number]) : 1945 Gender : Female Race : [...] ms QTC Calculation(Bezet) : 501 ms P Sabael : 22 degrees R Sabael : -43 degrees T Sabael : 107 degrees Test Reason : Location : 136 : [facility] Overread By : LAWSON MADRIGAL MD Edited By : LAWSON MADRIGAL MD Referred By : LAWSON MADRIGAL Acquired by : jyoti ÁLVAREZ on 2018-12-15 CNOV Office Visit (CAWSTR) Normal 12-16-[address] [place] [facility] ABBEY RESENDIZ ([id number]) 1945 F [facility] Time Provider Department (04788) 12/15/18 2:00 PM LAWSON MADRIGAL E CAWSTR [...] N/A Beta zara for ASHD with prior PA or prior LVEF<40 (NQF 00 70) - [...] checked. She would like to follow-up with [facility] and we will assist her [...] followi ng areas and commit to making buttermaker continuous churn changes. EAT A WHOLE FOOD, PLANT BASED [...] in your area. Referring Provider: LAWSON MADRIGAL [[id number]] Allergies As of Date: 12/15/2018 Noted Allergy Reaction COLCHICINE 11/13/2011 8 - GI Upset Date Reviewed: 12/15/2018 Reviewed by: Jose Cummings RN - Fully Assessed Reason for Visit: Recheck [92] Primary Visit Diagnosis:PAF (paroxysmal atrial fibrillation) (HCC) [I48.0] Other Visit Diagnosis:ASHD (arteriosclerotic heart disease) [I25.10] Order(s):ECG COMPLETE [ECG01] Order #: [id number] FUTURE BASIC METABOLIC PNL [SQBMP] Order #: [id number] FUTURE Prescriptions as of 12/15/2018 Sig: ATORVASTATIN [...] the following areas and commit to making buttermaker continuous churn changes. EAT A WHOLE FOOD, PLANT BASED [...] LAWSON MADRIGAL MD on 12/15/18 cnnurse on [facility] Nurse Visit (CAWSTR) Normal 9 [place] ABBEY Rodriguez ([id number]) 1945 F [place] Date Time Provider Department (84776) 12/15/18 4:00 PM NURSE CARD ADMIN [facility] WSTR CAWSTR During your visit today, we recorded the following informati on about you: Jose Cummings RN 12/15/2018 3:38 PM Signed Ekg completed per order. Pt tolerated procedure without dist ress. Jose Cummings RN Referring Provider: LAWSON MADRIGAL [[id number]] Allergies As of Date: 12/15/2018 Noted Allergy Reaction COLCHICINE 11/13/2011 8 - GI Upset Date Reviewed: 12/15/2018 Reviewed by: Jose Cummings RN - Fully Assessed Reason for Visit: Nurse Visit [792] Visit Diagnoses:PAF (paroxysmal atrial fibrillation) (HCC) [ I48.0] ASHD (arteriosclerotic heart disease) [I25.10] Order(s):ECG COMPLETE [ECG01] Order #: [id number] Prescriptions as of 12/15/2018 Sig: ATORVASTATIN 40 [...] TSH Qn 2.240 0.400-5.500 uU/mL Normal 06-21-2018 [facility] (61979) Comment: Performed By: #### TSH #### [facility] [address] [place], [place] [address] progress on 2018-06 PROGRESS HNO ID: [id number] Normal 06-21-2018 [facility] Author: Lawson Madrigal [place] ([id number]) Service: (none) Author Type: Physician Type: Progress Notes Filed: 06/21/2018 4:11 PM Note Text: PERTINENT CARDIAC HISTORY BBB HTN HL DM PAF? ASHD? CHF? ADHERENCE TO GUIDELINES SONIA-I or ARB for HF with prior LVEF<40 (NQF 0081) - N/A ASA or Plavix for ASHD (NQF 0067) - N/A Beta zara for ASHD with prior PA or prior LVEF<40 (NQF 00 70) - [...] [Mass/Vol] 1.7 1.7-2.3 mg/dL Normal 8 [facility] (43760) cnov on 2018-06-21 CNOV Office Visit (CAWSTR) Normal 06-21-[address] [place] [facility] ABBEY RESENDIZ ([id number]) 1945 F [place] Date Time Provider Department (77060) 06/21/18 1:45 PM LAWSON MADRIGAL CAWSTR During [...] N/A Beta zara for ASHD with prior PA or prior LVEF<40 (NQF 00 70) - [...] followi ng areas and commit to making alf changes. EAT A WHOLE FOOD, PLANT BASED [...] in your area. Referring Provider: LAWSON MADRIGAL [[id number]] Allergies As of Date: 06/21/2018 Noted Allergy Reaction COLCHICINE 11/13/2011 8 - GI Upset Date Reviewed: 06/21/2018 Reviewed by: Tressa Ontiveros MA - Fully Assessed Reason for Visit: Established Patient [175] Primary Visit Diagnosis:PAF (paroxysmal atrial fibrillation) (HCC) [I48.0] Other Visit Diagnosis:Essential hypertension [I10] Order(s):BASIC METABOLIC PNL [SQBMP] Order #: [id number] FUT URE TSH BLD [SQTSH] Order #: [id number] FUTURE Prescriptions as of 06/21/2018 Sig: ATORVASTATIN [...] the following areas and commit to making alf changes. EAT A WHOLE FOOD, PLANT BASED [...] 2018-06-21 Absolute nRBC <0.01 <0.01 Normal 06-21-2018 [facility] (13306) Comment: Performed By: #### CBC #### [facility] [address] [place], [place] [address] Erythrocyte distribution 13.2 11.5-15.0 % Normal 06-21 [facility] width (RBC) [Ratio] [place] (13940) Comment: Performed By: #### CBC #### [facility] [address] [place], [place] [address] Hematocrit (Bld) [Volume 43.5 36.0-46.0 % Normal 06-21 [facility] (73116) Comment: Performed By: #### CBC #### [facility] [address] [place] [address] Hemoglobin (Bld) 14.4 11.5-15.5 g/dL Normal 06-21-2018 [facility] [Mass/Vol] [place] (09423) Comment: Performed By: #### CBC #### [facility] [address] [place] [address] MCH (RBC) [Entitic mass] 33.0 26.0-34.0 pG Normal 06-21 [facility] (53211) Comment: Performed By: #### CBC #### [address] [address] MCHC (RBC) [Mass/Vol] 33.1 30.5-36.0 g/dL Normal 06-21-20 18 [facility] (40791) Comment: Performed By: #### CBC #### [address] [address] MCV (RBC) [Entitic vol] 99.8 80.0-100.0 fL Normal 06-21 [facility] (96101) Comment: Performed By: #### CBC #### [facility] [address] [place] [address] Platelet mean volume 12.3 9.0-12.7 fL Normal 8 [facility] (Bld) [Entitic vol] [place] (80414) Comment: Performed By: #### CBC #### [facility] [address] [place] [address] Platelets (Bld) [#/Vol] 194 150-400 k/uL Normal 2017 [facility] (64173) Comment: Performed By: #### CBC #### [facility] [address] [place], [place] [address] RBC (Bld) [#/Vol] 4.36 3.90-5.20 m/uL Normal 06-21-2018 [facility] (51706) Comment: Performed By: #### CBC #### [facility] [address] [place] [address] WBC (Bld) [#/Vol] 8.37 3.70-11.00 k/uL Normal 06-21-2018 [facility] (11119) Comment: Performed By: #### CBC #### [facility] [address] [place], [place] [address] basic metabolic panl on 2018-06-21 Anion gap [Moles/Vol] 12 mmol/L Normal 06-21-20 18 [facility] (74208) Calcium [Mass/Vol] 9.6 8.5-10.2 mg/dL Normal 06-21-2018 [facility] (92435) Chloride [Moles/Vol] 100 97-105 mmol/L Normal 8 [facility] (62060) CO2 [Moles/Vol] 23 22-30 mmol/L Normal 06-21-2018 [facility] (65231) Creatinine [Mass/Vol] 0.97 0.58-0.96 mg/dL High 06-21-20 18 [facility] (54290) eGFR- Amer. >60 Normal 06-21-2018 [facility] (02191) GFR/1.73 sq M predicted 56 . Normal 2017 [facility] among non-blacks MDRD [place] (19716) (S/P/Bld) [Vol rate/Area] Comment: Result Comment: eGFR [...] [Mass/Vol] 314 74-99 mg/dL High 06-21-2018 [facility] (20754) Potassium [Moles/Vol] 3.9 3.7-5.1 mmol/L Normal 06-21-20 18 [facility] (60237) Sodium [Moles/Vol] 135 136-144 mmol/L Low 06-21-2018 [facility] (35189) Urea nitrogen [Mass/Vol] 20 7-21 mg/dL Normal 06-21 [facility] (69255) progress on 2017-11 PROGRESS HNO ID: [id number]: Lawson jang 12-04-2017 Marni Chan: (none)Author Type: General PhysicianType: Progress NotesFiled: Medical 12/04/2017 5:18 PMNote Text:PERTINENT CARDIAC Center HISTORYLBBBHTNHLDMPAF?ASHD?CHF?ADHERENCE TO (86134) GUIDELINESACE-I or ARB for HF with prior LVEF<40 (NQF 0081) - N/AASA or Plavix for ASHD (NQF 0067) - N/ABeta zara for ASHD with prior PA or prior LVEF<40 (NQF 0070) - N/ABeta [...] valvular disease.Laboratory studies were performed at the retirement. She was advised toincrease her fluid intake. Follow-up basic profile is pending.Electronically Signed:Sera Parrish 2017 4:29 PMCC: Jony Wills MD cnov on 2017-12-04 CNOV Office Visit Normal 12-04-2017 Marni (AGCARDWST) ABBEY RESENDIZ ([id number]) 1945 F Date Time Provider Department12/04/17 3:00 PM LAWSON MADRIGAL [facility] During your visit today, we recorded the following information about you: Pulse Blood pressure Weight Cente r 62/minute 138/82 77.9 kgKenn freddy Madrigal MD 12/04/2017 5:18 PM SignedPERTINENT CARDIAC (12075) HISTORYLBBBHTNHLDMPAF?ASHD?C HF?ADHERENCE TO GUIDELINESACE-I or ARB for HF with prior LVEF<40 (NQF 0081) - N/AASA or Plavix for ASHD (N QF 0067) - N/ABeta zara for ASHD with prior PA or prior LVEF<40 (NQF 0070) - N/ABeta [...] to Continue Her Current Medication in the Sc antime.I Will See Her in 8 Months [...] valvular disease.Laboratory studies were performed at the [facility]. She was advised toincrease her fluid [...] programs in your area.Referring Provider: LAWSON POPE [[id number]]Allergies As of Date: 12/04/2017 Noted Allergy ReactionCOLCHICINE [...] the following areas and commit to making buttermaker continuous churn changes. EAT A WHOLE FOOD, PLANT BASED [...] area.Follow-up and Dispositi on History RecordedEncounter Number: [id number] Status:Closed by LAWSON MADRIGAL MD on 12/04/17 progress on 2017-07 PROGRESS HNO ID: [id number]: Lawson jang 08-14-2017 Marni Chan: (none)Author Type: General PhysicianType: Progress NotesFiled: Medical 08/14/2017 5:58 PMNote Text:PERTINENT CARDIAC Center HISTORYLBBBHTNHLDMPAF?ASHD?CHF?ADHERENCE TO (85873) GUIDELINESACE-I or ARB for HF with prior LVEF<40 (NQF 0081) - N/AASA or Plavix for ASHD (NQF 0067) - N/ABeta zara for ASHD with prior PA or prior LVEF<40 (NQF 0070) - N/ABeta [...] of this note will be sent to [facility].Written and verbal health teaching given to patient, patient verbalizesunderstanding and agrees with treatment plan.This note was generated using [employer] voice recognition system, and theremay be some incorrect words, spellings, and punctuation that were notnoted in checking the note before saving.DIAGNOSIS FOR VISIT:CardiomegalyHISTORY OF PRESENT ILLNESSAbbey Resendiz is a 71-year-old woman who was seen in the office todayat the request of a nurse practitioner at [facility], who reports that she has cardiomegaly. No [...] year but states that she lives in [place] [place] cannot give me her address. She [...] Visit Normal 08-14-2017 Marni (AGCARDWST) ABBEY RESENDIZ ([id number]) 1945 F Date Time Provider Department08/14/17 1:00 PM LAWSON MADRIGAL [facility] During your visit today, we recorded the following information about you: Pulse Blood pressure Weight Cente r Height 80/minute 114/72 74.6 kg 1.524 eFliciano Madrigal MD 08/14/2017 5:58 PM SignedPERTINENT CARDIAC () HISTORYLBBBHTNHLDMPAF?ASHD?C HF?ADHERENCE TO GUIDELINESACE-I or ARB for HF with prior LVEFANDlt;40 (NQF 0081) - N/AASA or Plavix for ASHD (NQF 0067) - N/ABeta zara for ASHD with prior PA or prior LVEFANDlt;40 (NQF 0070) - N/ [...] of this note will be sent to [facility].Wri tten and verbal health teaching given to patient, patient verbalizesunderstanding and agrees with treatment plan.This note was generated using [employer] voice recognition system, and ther e may besome incorrect words, spellings, and punctuation that were not noted inchecking the note before s franci.DIAGNOSIS FOR VISIT:CardiomegalyHISTORY OF PRESENT ILLNESSAbbey Resendiz is a 71-year-old woma n who [facility] assisted dee woodward, whoreports that she has [...] year but states that she lives in [place] cannot give me her address. She [...] to Dr. Wills's office.Referring Provider: JONY PACHECO [[id number]]Allergies As of Date: 08/14/2017 Noted Allergy ReactionCOLCHICINE 2 8 - GI UpsetDate Reviewed: 08/14/2017Reviewed by: Josafat (Rn) MIKAYLA Ames - Fully AssessedReason for Vis it: New Patient [172]Primary Visit Diagnosis:LBBB (left bundle branch block) [I44.7]Order(s):ECG B/O W IN TERP (MED OFFICE) [ECG06] Order #: [id number] ECHO [626183] Order #: [id number]: 1 FUTURE BASI C METABOLIC PNL [SQBMP] Order #: [id number] FUTURE CBC [SQCBC] Order #: [id number] FUTURE TSH BLD [S QTSH] Order #: [id number] FUTURE MAGNESIUM BLD [SQMG1] Order #: [id number] FUTUREPrescriptions as of Sig: FERROUS SULFATE 325 [...] following areas and comm it to making alf changes. EAT A WHOLE FOOD, PLANT BASED [...] filed during this visit:Extended VitalsEncount er Number: [id number] Status:Closed by LAWSON MADRIGAL MD on 08/14/17 glucose,bedside on 2017-02-07 Glucose mass conc 107 70-100 mg/dL High 02-07-2017 S [facility] (22559) Comment: Result Comment: Test perform ed by glucose meter. Results may be 10%-15% lowerthan serum/plasma value s. (CLIA ID [id number]) Performed By: #### HEMDF, PT /AP, CMP3, TSH4, B12, BNP3, RPR ####[address] [address] echo complete w/wo contrast on 2017-02-07 Echo Patient Name: ABBEY RESENDIZ [id number] Normal 02-07-2017 [facility] Complete Ultrasound Exam Date/T elyssa 02/07/2017 09:59:54 EDT Exam Echo Complete Health w/wo w/wo Contrast Ordering Physician MD WHYTE LORI Accession Number System Contrast [id number] Reason For Exam pulmonary embolus Report TRANSTHORACIC ([id number]) ECHOCARDIOGRAM PATIENT: Abbey Resendiz STUDY DATE: 2016 : 1945 [id number] AGE: 71 HT/WT: 152.4 cm (60 66.7 kg (146.7 in) lb) GENDER: F BP: 1 LOCATION: [facility] PATIENT Outpatient [facility] STATUS: *ORDERING PHYSICIAN: * Kandice Whyte *READING PHYSICIAN: * Arthur hendrickson MD *TACK MAKER: * Edgar Antunez --- INDICATIONS: Pulmonary embolism. [...] Bilirubin Patient Name: ABBEY RESENDIZ FIN: [id number] Normal 02-06-2017 [facility] (total) Ultrasound Exam Date/Time 02/06/2017 10:43 :01 EDT Exam VL Venous Health Duplex US Lower Ext Bilateral Ordering Physician JENNY TSANG , [employer] Accession Number [id number] CPT4 Codes 57557 () Reason Fo r Exam edema, (36586) pain, elevated d-dimer Report [facility] --- Lower Extremity Venous Duplex Report Patient Name: Abbey Oliveros : 1945 Study 02/06/2017 (71yrs) Date: Age: 71 Account: [id number] Gender: F Loc: [facility] 7976 BP: Ordering: Nolvia Tsang Technologist: Antonio Lao n: Nolvia Tsang Cam Milling Machine Operator: Neli Shaw hysician: Safia Cloud --- Location: [facility] INDICATIONS: Edema b ilateral ankle and [...] DATA: [facility] Birth[facility]: Patient birthdate: 1945. Age: Patient is 71 yr old. Sex: Gender: female. Ethnicity: Ethnicity: white. Doppler flow [facility] including spectral analysis, color and solis scale imaging. Patient sta tus: Observation. Procedure: A vascular evaluation was perf ormed. The images were obtained using a Tribe E9 vascular ultrasound machine. --- VENOUS FLOW [...] +------ --+ Electronically signed by: Safia Cloud [id number]: 45 Final Dictated: 02/06/2017 10:57 am Dictating Physicia n: SAFIA CLOUD Signed Date and Time: 02/06/2017 10:56 am Signed by: SAFIA CLOUD urinalysis,microscopic on 2017-02-06 Urine, bacteria in Few (1-5) Negative Normal 02-06-2017 [facility] sediment (48958) Comment: Performed By: #### HEMDF, PT /AP, CMP3, TSH4, B12, BNP3, RPR ####[place] [address] [place] [address] Urine, epithelial cells in 0-2 3-5 Normal [facility] (15763) sediment Comment: Performed By: #### HEMDF, PT /AP, CMP3, TSH4, B12, BNP3, RPR ####[place] [address] [place] [address] Urine, erythrocytes in Negative 0-2 /[HPF] Normal 017 [facility] sediment by area (00 000) Comment: Performed By: #### HEMDF, PT /AP, CMP3, TSH4, B12, BNP3, RPR ####[place] [address] [place] [address] Urine, leukocytes in 11-25 0-5 Normal 7 [facility] sedmiment (47606) Comment: Performed By: #### HEMDF, PT /AP, CMP3, TSH4, B12, BNP3, RPR ####[place] [address] [place] [address] Urine, yeast presence in Few (1-5) Negative Normal 02-06 [facility] sediment (00209) Comment: Performed By: #### HEMDF, PT /AP, CMP3, TSH4, B12, BNP3, RPR ####[place] [address] [place] [address] urinalysis,macro on 2017-02-06 Bilirubin (direct) NEG Negative mg/dL Normal 02-06-2017 [facility] (62582) Comment: Performed By: #### HEMDF, PT /AP, CMP3, TSH4, B12, BNP3, RPR ####[place] [address] [place] [address] Ketone,Urine NEG Negative Normal 02-06-2017 [facility] (60629) Comment: Performed By: #### HEMDF, PT /AP, CMP3, TSH4, B12, BNP3, RPR ####[place] [address] [place] [address] Occult Blood,Ur NEG Negative Normal 02-06-2017 [facility] (22402) Comment: Performed By: #### HEMDF, PT /AP, CMP3, TSH4, B12, BNP3, RPR ####[place] [address] [place] [address] Specific [place],Urine 1.005 1.005-1.030 Normal 02-06 [facility] (90039) Comment: Performed By: #### HEMDF, PT /AP, CMP3, TSH4, B12, BNP3, RPR ####[place] [address] [place] [address] Total Protein,Urine NEG Negative Normal 02-06-2017 [facility] (27672) Comment: Performed By: #### HEMDF, PT /AP, CMP3, TSH4, B12, BNP3, RPR ####[place] [address] [place] [address] Urine, appearance clear Clear Normal 02-06-2017 [facility] (58988) Comment: Performed By: #### HEMDF, PT /AP, CMP3, TSH4, B12, BNP3, RPR ####[place] [address] [place] [address] Urine, color p. yel Lt. Yellow Normal 02-06-2017 [facility] (51163) Comment: Performed By: #### HEMDF, PT /AP, CMP3, TSH4, B12, BNP3, RPR ####[place] [address] [place] [address] Urine, glucose presence NORM Negative Normal 2016 [facility] (99467) Comment: Performed By: #### HEMDF, PT /AP, CMP3, TSH4, B12, BNP3, RPR ####[place] [address] [place] [address] Urine, nitrite presence NEG Negative Normal 2016 [facility] (12536) Comment: Performed By: #### HEMDF, PT /AP, CMP3, TSH4, B12, BNP3, RPR ####[place] [address] [place] [address] Urine, pH 5.0 5.0-8.0 [pH] Normal 02-06-2017 [facility] (29078) Comment: Performed By: #### HEMDF, PT /AP, CMP3, TSH4, B12, BNP3, RPR ####[place] [address] [place] [address] Urine, urobilinogen NORM 0-1 Normal 02-06-2017 [facility] (39393) Comment: Performed By: #### HEMDF, PT /AP, CMP3, TSH4, B12, BNP3, RPR ####[place] [address] [place] [address] WBC (Leukocytes) 1+ Negative Normal 02-06-2017 [facility] (97546) Comment: Performed By: #### HEMDF, PT /AP, CMP3, TSH4, B12, BNP3, RPR ####[place] [address] [place] [address] troponin i on 02-06 Troponin I.cardiac < 0.015 0.000-0.045 ng/mL Normal 7 [facility] mass conc (45551) Comment: Result Comment: 0.046 - 0.40 0 = Indeterminate> 0.400 = Consider Myocardial Injury Performed By: #### HEMDF, AP TT, PT, CMP3, BNP3, DDI, TSH4, LIPD2, TROPN ####[address] [place] [address] thyroid stim. hormone on 2017-02-06 Thyroid Stim. Hormone 4.510 0.358-3.740 uU/mL High 2016 [facility] (49572) Comment: Performed By: #### HEMDF, AP TT, PT, CMP3, BNP3, DDI, TSH4, LIPD2, TROPN ####[place] [address] [place] [address] prothrombin time on 2017-02-06 INR Coag RelTime (PPP) 0.9 0.9-1.1 {INR} Normal 017 [facility] (71050) Comment: Result Comment: Recommended Anticoagulant Therapy:SEE BELOW----- [...] PT, CMP3, BNP3, DDI, TSH4, LIPD2, TROPN ####[place] [address] [place] [address] Prothrombin time (PT) Coag 9.7 9.0-12.0 s Normal [facility] time (PPP) (89530) Comment: Result Comment: . Performed By: #### HEMDF, AP TT, PT, CMP3, BNP3, DDI, TSH4, LIPD2, TROPN ####[address] [address] nt pro bnp on 02-06 BNP 310 0-125 pg/mL High 02-06-2017 [facility] (32240) Comment: Performed By: #### HEMDF, AP TT, PT, CMP3, BNP3, DDI, TSH4, LIPD2, TROPN ####[address] [address] lipid panel on 2016 Cholesterol to HDL Ratio 3 Normal 02-06 [facility] (64767) Comment: Result Comment: Ref Range:< 3 Low Risk for CHD3-6 Mod Risk for CHD> 6 High Risk for CHD Performed By: #### HEMDF, AP TT, PT, CMP3, BNP3, DDI, TSH4, LIPD2, TROPN ####[address] [address] HDL Cholesterol 50 40-59 mg/dL Normal 02-06-2017 [facility] (64521) Comment: Performed By: #### HEMDF, AP TT, PT, CMP3, BNP3, DDI, TSH4, LIPD2, TROPN ####[address] [address] Low Density Lipoprotein 76 <100 mg/dL Normal 2016 [facility] (77346) Comment: Performed By: #### HEMDF, AP TT, PT, CMP3, BNP3, DDI, TSH4, LIPD2, TROPN ####[address] [address] Triglyceride 180 <150 mg/dL Abnormal 02-06-2017 [facility] (01270) Comment: Performed By: #### HEMDF, AP TT, PT, CMP3, BNP3, DDI, TSH4, LIPD2, TROPN ####[address] [address] Cholesterol 162 < 200 mg/dL Normal 02-06-2017 [facility] (89118) Comment: Performed By: #### HEMDF, AP TT, PT, CMP3, BNP3, DDI, TSH4, LIPD2, TROPN ####[address] [address] hemogram w/ autodiff on 2017-02-06 Abs Baso Cnt 0.0 0.0-0.2 10*3/uL Normal 02-06-2017 [facility] (63316) Comment: Performed By: #### HEMDF, AP TT, PT, CMP3, BNP3, DDI, TSH4, LIPD2, TROPN ####[address] [address] Basophils/100 WBC Auto (Bld) 0.5 % Normal 0 02-06-2017 [facility] (10724) Comment: Performed By: #### HEMDF, AP TT, PT, CMP3, BNP3, DDI, TSH4, LIPD2, TROPN ####[place] [address] [place] [address] Eosinophils 0.1 0.0-0.5 10*3/uL Normal 02-06-2017 [facility] (69239) Comment: Performed By: #### HEMDF, AP TT, PT, CMP3, BNP3, DDI, TSH4, LIPD2, TROPN ####[address] [address] Eosinophils/100 leukocytes 2.1 % Normal [facility] (78453) Comment: Performed By: #### HEMDF, AP TT, PT, CMP3, BNP3, DDI, TSH4, LIPD2, TROPN ####[address] [address] Erythrocyte distribution 13.6 11.5-14.5 % Normal 02-06 [facility] width Auto Ratio (RBC) (19822) Comment: Performed By: #### HEMDF, AP TT, PT, CMP3, BNP3, DDI, TSH4, LIPD2, TROPN ####[address] [address] Erythrocytes (RBC) 3.92 3.80-5.20 10*6/uL Normal 02-06-2017 [facility] (88323) Comment: Performed By: #### HEMDF, AP TT, PT, CMP3, BNP3, DDI, TSH4, LIPD2, TROPN ####[address] [address] Granulocytes/100 WBC (Bld) 66.7 % Normal [facility] (37364) Comment: Performed By: #### HEMDF, AP TT, PT, CMP3, BNP3, DDI, TSH4, LIPD2, TROPN ####[place] [address] Hematocrit (HCT) 35.7 35.0-47.0 % Normal 02-06-2017 [facility] (22079) Comment: Performed By: #### HEMDF, AP TT, PT, CMP3, BNP3, DDI, TSH4, LIPD2, TROPN ####[address] [address] Hemoglobin mass conc 12.1 11.7-16.0 g/dL Normal 7 [facility] (Bld) (73492) Comment: Performed By: #### HEMDF, AP TT, PT, CMP3, BNP3, DDI, TSH4, LIPD2, TROPN ####[place] [address] Lymphocytes 1.7 1.0-4.3 10*3/uL Normal 02-06-2017 [facility] (98795) Comment: Performed By: #### HEMDF, AP TT, PT, CMP3, BNP3, DDI, TSH4, LIPD2, TROPN ####[address] [address] Lymphocytes/100 leukocytes 24.5 % Normal [facility] (56694) Comment: Performed By: #### HEMDF, AP TT, PT, CMP3, BNP3, DDI, TSH4, LIPD2, TROPN ####[address] [address] MCH 30.7 26.0-34.0 pg Normal 02-06-2017 [facility] (95100) Comment: Performed By: #### HEMDF, AP TT, PT, CMP3, BNP3, DDI, TSH4, LIPD2, TROPN ####[place] [address] MCHC mass conc (RBC) 33.8 32.0-36.0 % Normal 7 [facility] (52435) Comment: Performed By: #### HEMDF, AP TT, PT, CMP3, BNP3, DDI, TSH4, LIPD2, TROPN ####[address] [address] MCV 91.0 79.0-98.0 fL Normal 02-06-2017 [facility] (98937) Comment: Performed By: #### HEMDF, AP TT, PT, CMP3, BNP3, DDI, TSH4, LIPD2, TROPN ####[address] [address] Monocytes 0.4 0.0-0.8 10*3/uL Normal 02-06-2017 [facility] (23877) Comment: Performed By: #### HEMDF, AP TT, PT, CMP3, BNP3, DDI, TSH4, LIPD2, TROPN ####[address] [address] Monocytes/100 leukocytes 6.2 % Normal 02-06 [facility] (36358) Comment: Performed By: #### HEMDF, AP TT, PT, CMP3, BNP3, DDI, TSH4, LIPD2, TROPN ####[address] [address] Neutrophils 4.7 1.8-7.0 10*3/uL Normal 02-06-2017 [facility] (38063) Comment: Performed By: #### HEMDF, AP TT, PT, CMP3, BNP3, DDI, TSH4, LIPD2, TROPN ####[address] [address] Platelet mean volume (PMV) 9.3 7.4-10.4 fL Normal [facility] (77030) Comment: Performed By: #### HEMDF, AP TT, PT, CMP3, BNP3, DDI, TSH4, LIPD2, TROPN ####[address] [place] [address] Platelets 169 140-440 10*3/uL Normal 02-06-2017 [facility] (76748) Comment: Performed By: #### HEMDF, AP TT, PT, CMP3, BNP3, DDI, TSH4, LIPD2, TROPN ####[address] [address] WBC (Leukocytes) 7.0 3.6-10.7 10*3/uL Normal 02-06-2017 [facility] (96648) Comment: Performed By: #### HEMDF, AP TT, PT, CMP3, BNP3, DDI, TSH4, LIPD2, TROPN ####[address] [address] glucose,bedside on 2017-02-06 Glucose mass conc 216 70-100 mg/dL High 02-06-2017 [facility] (43067) Comment: Result Comment: Test perform ed by glucose meter. Results may be 10%-15% lowerthan serum/plasma value s. (CLIA ID [id number]) Performed By: #### HEMDF, PT /AP, CMP3, TSH4, B12, BNP3, RPR ####[address] [address] Glucose mass conc 157 70-100 mg/dL High 02-06-2017 [facility] (32560) Comment: Result Comment: Test perform ed by glucose meter. Results may be 10%-15% lowerthan serum/plasma value s. (CLIA ID [id number]) Performed By: #### HEMDF, PT /AP, CMP3, TSH4, B12, BNP3, RPR ####[address] [address] Glucose mass conc 111 70-100 mg/dL High 02-06-2017 [facility] (48377) Comment: Result Comment: Test perform ed by glucose meter. Results may be 10%-15% lowerthan serum/plasma value s. (CLIA ID [id number]) Performed By: #### BGLU #### [address] [place] [address] Glucose mass conc 121 70-100 mg/dL High 02-06-2017 [facility] (75712) Comment: Result Comment: Test perform ed by glucose meter. Results may be 10%-15% lowerthan serum/plasma value s. (CLIA ID [id number]) Performed By: #### BGLU #### [place] [address] [place] [address] d-dimer, innovance on 2017-02-06 D-Dimer, Innovance 3.44 0.17-0.59 ug{FEU}/mL High 02-06-2017 [facility] roomlinx [facility] (02931) Comment: Result Comment: Innovance D- Dimer values of <0.50 mg/L FEU can be used incombination with a pre-braxton t probability model (e.g. Well's)to exclude pulmonary embolism (PE) dise ase, as well as alyssa in the diagnosis of deep vein thrombosis (DVT). Performed By: #### HEMDF, AP TT, PT, CMP3, BNP3, DDI, TSH4, LIPD2, TROPN ####[place] [address] [place] [address] cta chest w/ + w/o contrast on 2017-02-06 CTA Chest w/ + w/o Patient Name: Lucien RESENDIZ 02-06-2017 [facility] Contrast [facility] (22247) CT Exam Date/Time 02/06/2017 04:32:28 EDT Exam CTA Chest w/ + w/o Contrast Ordering Physician JENNY TSANG [place] Accession Number [id number] CPT4 Codes 07696 (), Q9967 () Reason For Exam DYSPNEA, [...] Alkaline phosphatase (ALP) 80 45-117 U/L Normal [facility] (61423) Comment: Performed By: #### HEMDF, AP TT, PT, CMP3, BNP3, DDI, TSH4, LIPD2, TROPN ####[address] [address] Anion gap 7 mmol/L Normal 02-06-2017 [facility] (45209) Comment: Performed By: #### HEMDF, AP TT, PT, CMP3, BNP3, DDI, TSH4, LIPD2, TROPN ####[address] [address] Bilirubin (total) 0.4 0.2-1.0 mg/dL Normal 02-06-2017 [facility] (64299) Comment: Performed By: #### HEMDF, AP TT, PT, CMP3, BNP3, DDI, TSH4, LIPD2, TROPN ####[address] [address] Protein 7.3 6.4-8.2 g/dL Normal 02-06-2017 [facility] (38194) Comment: Performed By: #### HEMDF, AP TT, PT, CMP3, BNP3, DDI, TSH4, LIPD2, TROPN ####[place] [address] Alanine aminotransferase (ALT) 31 12-78 U/L Normal 02-06-2017 [facility] (63123) Comment: Performed By: #### HEMDF, AP TT, PT, CMP3, BNP3, DDI, TSH4, LIPD2, TROPN ####[place] [address] Aspartate aminotransferase (AST) 14 15-37 U/L Low 02-06-2017 [facility] (54446) Comment: Performed By: #### HEMDF, AP TT, PT, CMP3, BNP3, DDI, TSH4, LIPD2, TROPN ####[place] [address] Creatinine 1.25 0.55-1.40 mg/dL Normal 02-06-2017 [facility] (10459) Comment: Performed By: #### HEMDF, AP TT, PT, CMP3, BNP3, DDI, TSH4, LIPD2, TROPN ####[place] [address] eGFR (black) 50.8 >60 mL/min Normal 02-06-2017 [facility] (65142) Comment: Performed By: #### HEMDF, AP TT, PT, CMP3, BNP3, DDI, TSH4, LIPD2, TROPN ####[place] [address] eGFR (non-black) 42.0 >60 mL/min Normal 02-06-2017 [facility] (57213) Comment: Result Comment: Source- MDRD equation with creatinine calibration to IDMS(NKDEP)eGFR not recommen ded for drug dose adjustment Performed By: #### HEMDF, AP TT, PT, CMP3, BNP3, DDI, TSH4, LIPD2, TROPN ####[address] [place] [address] Albumin 3.2 3.4-5.0 g/dL Low 02-06-2017 [facility] (85799) Comment: Performed By: #### HEMDF, AP TT, PT, CMP3, BNP3, DDI, TSH4, LIPD2, TROPN ####[address] [place] [address] Urea nitrogen 14 7-25 mg/dL Normal 02-06-2017 [facility] (78845) Comment: Performed By: #### HEMDF, AP TT, PT, CMP3, BNP3, DDI, TSH4, LIPD2, TROPN ####[place] [address] Calcium 8.6 8.2-10.1 mg/dL Normal 02-06-2017 [facility] (64868) Comment: Performed By: #### HEMDF, AP TT, PT, CMP3, BNP3, DDI, TSH4, LIPD2, TROPN ####[place] [address] CO2 24 21-32 mmol/L Normal 02-06-2017 [facility] (76910) Comment: Performed By: #### HEMDF, AP TT, PT, CMP3, BNP3, DDI, TSH4, LIPD2, TROPN ####[place] [address] Glucose mass conc 58 70-100 mg/dL Low 02-06-2017 [facility] (52071) Comment: Performed By: #### HEMDF, AP TT, PT, CMP3, BNP3, DDI, TSH4, LIPD2, TROPN ####[place] [address] Chloride 109 98-109 mmol/L Normal 02-06-2017 [facility] (56279) Comment: Performed By: #### HEMDF, AP TT, PT, CMP3, BNP3, DDI, TSH4, LIPD2, TROPN ####[address] [place] [address] Potassium molar conc 3.3 3.5-5.1 mmol/L Low 7 [facility] (22594) Comment: Performed By: #### HEMDF, AP TT, PT, CMP3, BNP3, DDI, TSH4, LIPD2, TROPN ####[address] [address] Sodium 140 135-145 mmol/L Normal 02-06-2017 [facility] (81792) Comment: Performed By: #### HEMDF, AP TT, PT, CMP3, BNP3, DDI, TSH4, LIPD2, TROPN ####[address] [address] basic metabolic panel on 2017-02-06 Anion gap 8 mmol/L Normal 02-06-2017 [facility] (10969) Comment: Performed By: #### BMP3 #### [place] [address] Creatinine 1.23 0.55-1.40 mg/dL Normal 02-06-2017 [facility] (11744) Comment: Performed By: #### BMP3 #### [place] [address] eGFR (black) 51.8 >60 mL/min Normal 02-06-2017 [facility] (27696) Comment: Performed By: #### BMP3 #### [address] [address] eGFR (non-black) 42.7 >60 mL/min Normal 02-06-2017 [facility] (51346) Comment: Result Comment: Source- MDRD equation with creatinine calibration to IDMS(NKDEP)eGFR not recommen ded for drug dose adjustment Performed By: #### BMP3 #### [address] [place] [id number] CO2 27 21-32 mmol/L Normal 02-06-2017 [facility] (76994) Comment: Performed By: #### BMP3 #### [address] [place] [address] Glucose mass conc 109 70-100 mg/dL High 02-06-2017 [facility] (16384) Comment: Performed By: #### BMP3 #### [address] [address] Urea nitrogen 14 7-25 mg/dL Normal 02-06-2017 [facility] (60359) Comment: Performed By: #### BMP3 #### [address] [address] Calcium 8.6 8.2-10.1 mg/dL Normal 02-06-2017 [facility] (76285) Comment: Performed By: #### BMP3 #### [address] [address] Chloride 107 98-109 mmol/L Normal 02-06-2017 [facility] (04097) Comment: Performed By: #### BMP3 #### [address] [address] Potassium molar conc 3.7 3.5-5.1 mmol/L Normal 7 [facility] (08575) Comment: Performed By: #### BMP3 #### [address] [address] Sodium 142 135-145 mmol/L Normal 02-06-2017 [facility] (15762) Comment: Performed By: #### BMP3 #### [address] [address] aptt on 2017-02-06 aPTT 22.0 20.0-30.5 s Normal 02-06-2017 [facility] (52113) Comment: Result Comment: NOTE: The th erapeutic time for Heparin anticoagulation,based on Xa activity inhibition, i s an APTT of 46-80seconds. Performed By: #### HEMDF, AP TT, PT, CMP3, BNP3, DDI, TSH4, LIPD2, TROPN ####[address] [address] hemogram on 2017-01 Erythrocyte distribution 14.0 11.5-14.5 % Normal 01-24 [facility] width Auto Ratio (RBC) (19265) Comment: Performed By: #### BMP3, HEM OG ####[address] [place] [address] Erythrocytes (RBC) 3.52 3.80-5.20 10*6/uL Low 01-24-2017 [facility] (49951) Comment: Performed By: #### BMP3, HEM OG ####[place] [address] [place] [address] Hematocrit (HCT) 31.3 35.0-47.0 % Low 01-24-2017 [facility] (22208) Comment: Performed By: #### BMP3, HEM OG ####[place] [address] Hemoglobin mass conc (Bld) 10.7 11.7-16.0 g/dL Low [facility] (06445) Comment: Performed By: #### BMP3, HEM OG ####[place] [address] [place] [address] MCH 30.3 26.0-34.0 pg Normal 01-24-2017 [facility] (84737) Comment: Performed By: #### BMP3, HEM OG ####[place] [address] [place] [address] MCHC mass conc (RBC) 34.1 32.0-36.0 % Normal 7 [facility] (17511) Comment: Performed By: #### BMP3, HEM OG ####[place] [address] [place] [address] MCV 89.0 79.0-98.0 fL Normal 01-24-2017 [facility] (00587) Comment: Performed By: #### BMP3, HEM OG ####[place] [address] [place] [address] Platelet mean volume (PMV) 9.8 7.4-10.4 fL Normal [facility] (16526) Comment: Performed By: #### BMP3, HEM OG ####[place] [address] [place] [address] Platelets 133 140-440 10*3/uL Low 01-24-2017 [facility] (33778) Comment: Performed By: #### BMP3, HEM OG ####[place] [address] [place] [address] WBC (Leukocytes) 4.0 3.6-10.7 10*3/uL Normal 01-24-2017 [facility] (09008) Comment: Performed By: #### BMP3, HEM OG ####[place] [address] [place] [address] glucose,bedside on 2017-01-24 Glucose mass conc 399 70-100 mg/dL High 01-24-2017 [facility] (28150) Comment: Result Comment: Test perform ed by glucose meter. Results may be 10%-15% lowerthan serum/plasma value s. (CLIA ID [id number]) Performed By: #### BGLU #### [place] [address] [place] [address] Glucose mass conc 197 70-100 mg/dL High 01-24-2017 [facility] (75811) Comment: Result Comment: Test perform ed by glucose meter. Results may be 10%-15% lowerthan serum/plasma value s. (CLIA ID [id number]) Performed By: #### BGLU #### [place] [address] [place] [address] Glucose mass conc 263 70-100 mg/dL High 01-24-2017 [facility] (57589) Comment: Result Comment: Test perform ed by glucose meter. Results may be 10%-15% lowerthan serum/plasma value s. (CLIA ID [id number]) Performed By: #### BGLU #### [place] [address] [place] [address] Glucose mass conc 249 70-100 mg/dL High 01-24-2017 [facility] (53822) Comment: Result Comment: Test perform ed by glucose meter. Results may be 10%-15% lowerthan serum/plasma value s. (CLIA ID [id number]) Performed By: #### BGLU #### [place] [place] [address] basic metabolic panel on 2017-01-24 Anion gap 9 mmol/L Normal 01-24-2017 [facility] (02946) Comment: Performed By: #### BMP3, HEM OG ####[place] [place] [address] Creatinine 1.13 0.55-1.40 mg/dL Normal 01-24-2017 [facility] (20680) Comment: Performed By: #### BMP3, HEM OG ####[place] [place] [address] eGFR (black) 57.1 >60 mL/min Normal 01-24-2017 [facility] (73900) Comment: Performed By: #### BMP3, HEM OG ####[place] [place] [address] eGFR (non-black) 47.1 >60 mL/min Normal 01-24-2017 [facility] (66864) Comment: Result Comment: Source- MDRD equation with creatinine calibration to IDMS(NKDEP)eGFR not recommen ded for drug dose adjustment Performed By: #### BMP3, HEM OG ####[place] [address] [place] [address] Glucose mass conc 223 70-100 mg/dL High 01-24-2017 [facility] (53960) Comment: Performed By: #### BMP3, HEM OG ####[place] [place] [address] Urea nitrogen 24 7-25 mg/dL Normal 01-24-2017 [facility] (86681) Comment: Performed By: #### BMP3, HEM OG ####[place] [place] [address] Calcium 8.1 8.2-10.1 mg/dL Low 01-24-2017 [facility] (07044) Comment: Performed By: #### BMP3, HEM OG ####[facility] [place] [address] CO2 21 21-32 mmol/L Normal 01-24-2017 [facility] (11025) Comment: Performed By: #### BMP3, HEM OG ####[address] [address] [place] [address] Chloride 110 98-109 mmol/L High 01-24-2017 [facility] (98914) Comment: Performed By: #### BMP3, HEM OG ####[place] [address] [place] [address] Potassium molar conc 4.3 3.5-5.1 mmol/L Normal 7 [facility] (14988) Comment: Performed By: #### BMP3, HEM OG ####[place] [place] [address] Sodium 140 135-145 mmol/L Normal 01-24-2017 [facility] (15523) Comment: Performed By: #### BMP3, HEM OG ####[place] [place] [address] rpr, qual on 01-23 RPR, Qual NONREACTIVE Non-Reactive Normal 01-23-2017 [facility] (01486) Comment: Performed By: #### UAFRAN, UA NIGEL ####[place] [address] [place] [address] hiv 1,2 ab; p24 ag on 2017-01-23 HIV 1,2 Ab; p24 Ag NONREACTIVE Nonreactive Normal 017 [facility] (46270) Comment: Result Comment: Results obta ined using [...] charge. Performed By: #### UAMAC, UA NIGEL ####[place] [address] [place] [address] hemogram on 2017-01 Erythrocyte distribution 14.3 11.5-14.5 % Normal 01-23 [facility] width Auto Ratio (RBC) (48751) Comment: Performed By: #### UAMAC, UA NIGEL ####[place] [place] [address] Erythrocytes (RBC) 3.77 3.80-5.20 10*6/uL Low 01-23-2017 [facility] (42075) Comment: Performed By: #### UAMAC, UA NIGEL ####[place] [place] [address] Hematocrit (HCT) 33.6 35.0-47.0 % Low 01-23-2017 [facility] (41398) Comment: Performed By: #### UAMAC, UA NIGEL ####[place] [place] [address] Hemoglobin mass conc (Bld) 11.4 11.7-16.0 g/dL Low [facility] (32581) Comment: Performed By: #### UAMAC, UA NIGEL ####[place] [place] [address] MCH 30.3 26.0-34.0 pg Normal 01-23-2017 [facility] (89743) Comment: Performed By: #### UAMAC, UA NIGEL ####[place] [address] [place] [address] MCHC mass conc (RBC) 34.0 32.0-36.0 % Normal 7 [facility] (66798) Comment: Performed By: #### UAMAC, UA NIGEL ####[address] [place] [address] MCV 89.2 79.0-98.0 fL Normal 01-23-2017 [facility] ([id number]) Comment: Performed By: #### UAMAC, UA NIGEL ####[address] [place] [address] Platelet mean volume (PMV) 10.6 7.4-10.4 fL High [facility] ([id number]) Comment: Performed By: #### UAMAC, UA NIGEL ####[address] [place] [address] Platelets 140 140-440 10*3/uL Normal 01-23-2017 [facility] ([id number]) Comment: Performed By: #### UAMAC, UA NIGEL ####[address] [place] [address] WBC (Leukocytes) 5.2 3.6-10.7 10*3/uL Normal 01-23-2017 [facility] ([id number]) Comment: Performed By: #### UAMAC, UA NIGEL ####[address] [place] [address] glucose,bedside on 2017-01-23 Glucose mass conc 104 70-100 mg/dL High 01-23-2017 [facility] ([id number]) Comment: Result Comment: Test perform ed by glucose meter. Results may be 10%-15% lowerthan serum/plasma value s. (CLIA ID [id number]) Performed By: #### BGLU #### [address] [place] [address] Glucose mass conc 98 70-100 mg/dL Normal 01-23-2017 [facility] ([id number]) Comment: Result Comment: Test perform ed by glucose meter. Results may be 10%-15% lowerthan serum/plasma value s. (CLIA ID [id number]) Performed By: #### UAMAC, UA NIGEL ####[place] [address] [place] [address] Glucose mass conc 90 70-100 mg/dL Normal 01-23-2017 [facility] ([id number]) Comment: Result Comment: Test perform ed by glucose meter. Results may be 10%-15% lowerthan serum/plasma value s. (CLIA ID [id number]) Performed By: #### UAMAC, UA NIGEL ####[place] [address] [place] [address] Glucose mass conc 98 70-100 mg/dL Normal 01-23-2017 [facility] (70042) Comment: Result Comment: Test perform ed by glucose meter. Results may be 10%-15% lowerthan serum/plasma value s. (CLIA ID [id number]) Performed By: #### UAMAC, UA NIGEL ####[address] [place] [address] basic metabolic panel on 2017-01-23 Anion gap 9 mmol/L Normal 01-23-2017 [facility] (57672) Comment: Performed By: #### UAMAC, UA NIGEL ####[address] [place] [address] Creatinine 1.13 0.55-1.40 mg/dL Normal 01-23-2017 [facility] ([id number]) Comment: Performed By: #### UAMAC, UA NIGEL ####[address] [place] [address] eGFR (black) 57.1 >60 mL/min Normal 01-23-2017 [facility] (42314) Comment: Performed By: #### UAMAC, UA NIGEL ####[address] [place] [address] eGFR (non-black) 47.1 >60 mL/min Normal 01-23-2017 [facility] (41785) Comment: Result Comment: Source- MDRD equation with creatinine calibration to IDMS(NKDEP)eGFR not recommen ded for drug dose adjustment Performed By: #### UAMAC, UA NIGEL ####[address] [place] [address] Calcium 8.3 8.2-10.1 mg/dL Normal 01-23-2017 [facility] (84783) Comment: Performed By: #### UAMAC, UA NIGEL ####[address] [place] [address] CO2 21 21-32 mmol/L Normal 01-23-2017 [facility] (97099) Comment: Performed By: #### UAMAC, UA NIGEL ####[address] [place] [address] Glucose mass conc 93 70-100 mg/dL Normal 01-23-2017 [facility] (43894) Comment: Performed By: #### UAMAC, UA NIGEL ####[address] [place] [address] Urea nitrogen 24 7-25 mg/dL Normal 01-23-2017 [facility] (60277) Comment: Performed By: #### UAMAC, UA NIGEL ####[address] [place] [address] Chloride 113 98-109 mmol/L High 01-23-2017 [facility] (50198) Comment: Performed By: #### UAMAC, UA NIGEL ####[address] [place] [address] Potassium molar conc 3.8 3.5-5.1 mmol/L Normal 7 [facility] (08792) Comment: Performed By: #### UAMAC, UA NIGEL ####[address] [place] [address] Sodium 143 135-145 mmol/L Normal 01-23-2017 [facility] (06441) Comment: Performed By: #### UAMAC, UA NIGEL ####[address] [place] [address] vitamin b12 on 2016 Cobalamins (Vitamin B12) 425 193-986 pg/mL Normal 01-22 [facility] (76114) Comment: Performed By: #### HEMDF, PT /AP, CMP3, TSH4, B12, BNP3, RPR ####[address] [place] [address] urinalysis,microscopic on 2017-01-22 Urine, bacteria in present Negative Normal 01-22-2017 [facility] sediment (53554) Comment: Result Comment: unable to qu antitate due to large amount of wbc's Performed By: #### UAMAC, UA NIGEL ####[address] [place] [address] Urine, epithelial cells see wbc comment 3-5 Normal 01-22-2017 [facility] in sediment (85095) Comment: Performed By: #### UAMAC, UA NIGEL ####[address] [place] [address] Urine, erythrocytes in see wbc comment 0-2 Normal 0 01-22-2017 [facility] sediment by area (00 000) Comment: Performed By: #### UAMAC, UA NIGEL ####[address] [place] [address] Urine, leukocytes in see below 0-5 Normal 7 [facility] sedmiment (76683) Comment: Result Comment: Grossly load ed, unable to identify any other formed elements. Performed By: #### UAMAC, UA NIGEL ####[address] [place] [address] urinalysis,macro on 2017-01-22 Bilirubin (direct) NEG Negative mg/dL Normal 01-22-2017 [facility] (00008) Comment: Performed By: #### UAMAC, UA NIGEL ####[address] [place] [address] Ketone,Urine NEG Negative Normal 01-22-2017 [facility] (89332) Comment: Performed By: #### UAMAC, UA NIGEL ####[address] [place] [address] Occult Blood,Ur 250 Negative {RBC}/uL Normal 01-22-2017 [facility] (87445) Comment: Performed By: #### UAMAC, UA NIGEL ####[address] [place] [address] Specific [place],Urine 1.025 1.005-1.030 Normal 01-22 [facility] (40346) Comment: Performed By: #### UAMAC, UA NIGEL ####[address] [place] [address] Total Protein,Urine 150 Negative mg/dL Normal 01-22-2017 [facility] (83533) Comment: Performed By: #### UAMAC, UA NIGEL ####[address] [place] [address] Urine, appearance cloudy Clear Normal 01-22-2017 [facility] (42262) Comment: Performed By: #### UAMAC, UA NIGEL ####[address] [place] [address] Urine, color yellow Lt. Yellow Normal 01-22-2017 [facility] (53185) Comment: Performed By: #### UAMAC, UA NIGEL ####[address] [place] [address] Urine, glucose presence NORM Negative Normal 2016 [facility] (73408) Comment: Performed By: #### UAMAC, UA NIGEL ####[address] [place] [address] Urine, nitrite presence NEG Negative Normal 2016 [facility] (48119) Comment: Performed By: #### UAMAC, UA NIGEL ####[address] [place] [address] Urine, pH 5.0 5.0-8.0 [pH] Normal 01-22-2017 [facility] (04220) Comment: Performed By: #### UAMAC, UA NIGEL ####[address] [address] Urine, urobilinogen NORM 0-1 Normal 01-22-2017 [facility] (74805) Comment: Performed By: #### UAMAC, UA NIGEL ####[place] [address] WBC (Leukocytes) 2+ Negative Normal 01-22-2017 [facility] (54744) Comment: Performed By: #### UAMAC, UA NIGEL ####[place] [address] thyroid stim. hormone on 2017-01-22 Thyroid Stim. Hormone 1.470 0.358-3.740 uU/mL Normal 2016 [facility] (78091) Comment: Performed By: #### HEMDF, PT /AP, CMP3, TSH4, B12, BNP3, RPR ####[address] [address] protime on aPTT 24.2 20.0-30.5 s Normal 01-22-2017 [facility] (95808) Comment: Result Comment: NOTE: The th erapeutic time for Heparin anticoagulation,based on Xa activity inhibition, i s an APTT of 46-80seconds. Performed By: #### HEMDF, PT /AP, CMP3, TSH4, B12, BNP3, RPR ####[address] [address] INR Coag RelTime (PPP) 1.0 0.9-1.1 {INR} Normal 017 [facility] (01640) Comment: Result Comment: Recommended Anticoagulant Therapy:SEE BELOW----- [...] PT /AP, CMP3, TSH4, B12, BNP3, RPR ####[address] [address] Prothrombin time (PT) Coag 10.1 9.0-12.0 s Normal [facility] time (PPP) (92699) Comment: Result Comment: . Performed By: #### HEMDF, PT /AP, CMP3, TSH4, B12, BNP3, RPR ####[address] [address] nt pro bnp on 01-22 BNP 352 0-125 pg/mL High 01-22-2017 [facility] (76689) Comment: Performed By: #### HEMDF, PT /AP, CMP3, TSH4, B12, BNP3, RPR ####[address] [address] hemogram w/ autodiff on 2017-01-22 Abs Baso Cnt 0.0 0.0-0.2 10*3/uL Normal 01-22-2017 [facility] (18675) Comment: Performed By: #### HEMDF, PT /AP, CMP3, TSH4, B12, BNP3, RPR ####[place] [address] [place] [address] Basophils/100 WBC Auto (Bld) 0.5 % Normal 0 01-22-2017 [facility] (90168) Comment: Performed By: #### HEMDF, PT /AP, CMP3, TSH4, B12, BNP3, RPR ####[place] [place] [address] Eosinophils 0.2 0.0-0.5 10*3/uL Normal 01-22-2017 [facility] (29387) Comment: Performed By: #### HEMDF, PT /AP, CMP3, TSH4, B12, BNP3, RPR ####[address] [facility] [place] [address] Eosinophils/100 leukocytes 5.2 % Normal [facility] (41237) Comment: Performed By: #### HEMDF, PT /AP, CMP3, TSH4, B12, BNP3, RPR ####[address] [place] [address] Granulocytes/100 WBC (Bld) 61.8 % Normal [facility] (11519) Comment: Performed By: #### HEMDF, PT /AP, CMP3, TSH4, B12, BNP3, RPR ####[address] [place] [address] Lymphocytes 1.3 1.0-4.3 10*3/uL Normal 01-22-2017 [facility] (75952) Comment: Performed By: #### HEMDF, PT /AP, CMP3, TSH4, B12, BNP3, RPR ####[address] [place] [address] Lymphocytes/100 leukocytes 28.3 % Normal [facility] (89483) Comment: Performed By: #### HEMDF, PT /AP, CMP3, TSH4, B12, BNP3, RPR ####[address] [place] [address] Monocytes 0.2 0.0-0.8 10*3/uL Normal 01-22-2017 [facility] (98452) Comment: Performed By: #### HEMDF, PT /AP, CMP3, TSH4, B12, BNP3, RPR ####[address] [place] [address] Monocytes/100 leukocytes 4.2 % Normal 01-22 [facility] (54286) Comment: Performed By: #### HEMDF, PT /AP, CMP3, TSH4, B12, BNP3, RPR ####[address] [place] [address] Neutrophils 2.9 1.8-7.0 10*3/uL Normal 01-22-2017 [facility] (77464) Comment: Performed By: #### HEMDF, PT /AP, CMP3, TSH4, B12, BNP3, RPR ####[address] [address] Erythrocyte distribution 13.8 11.5-14.5 % Normal 01-22 [facility] width Auto Ratio (RBC) (72023) Comment: Performed By: #### HEMDF, PT /AP, CMP3, TSH4, B12, BNP3, RPR ####[address] [address] Erythrocytes (RBC) 3.63 3.80-5.20 10*6/uL Low 01-22-2017 [facility] (78414) Comment: Performed By: #### HEMDF, PT /AP, CMP3, TSH4, B12, BNP3, RPR ####[address] [place] [address] Hematocrit (HCT) 32.5 35.0-47.0 % Low 01-22-2017 [facility] (36652) Comment: Performed By: #### HEMDF, PT /AP, CMP3, TSH4, B12, BNP3, RPR ####[address] [address] Hemoglobin mass conc (Bld) 11.2 11.7-16.0 g/dL Low [facility] (35390) Comment: Performed By: #### HEMDF, PT /AP, CMP3, TSH4, B12, BNP3, RPR ####[address] [place] [address] MCH 30.8 26.0-34.0 pg Normal 01-22-2017 [facility] (90680) Comment: Performed By: #### HEMDF, PT /AP, CMP3, TSH4, B12, BNP3, RPR ####[address] [address] MCHC mass conc (RBC) 34.4 32.0-36.0 % Normal 7 [facility] (55941) Comment: Performed By: #### HEMDF, PT /AP, CMP3, TSH4, B12, BNP3, RPR ####[address] [address] MCV 89.6 79.0-98.0 fL Normal 01-22-2017 [facility] (70723) Comment: Performed By: #### HEMDF, PT /AP, CMP3, TSH4, B12, BNP3, RPR ####[address] [address] Platelet mean volume (PMV) 10.1 7.4-10.4 fL Normal [facility] (85843) Comment: Performed By: #### HEMDF, PT /AP, CMP3, TSH4, B12, BNP3, RPR ####[address] [address] Platelets 143 140-440 10*3/uL Normal 01-22-2017 [facility] (08670) Comment: Performed By: #### HEMDF, PT /AP, CMP3, TSH4, B12, BNP3, RPR ####[address] [address] WBC (Leukocytes) 4.6 3.6-10.7 10*3/uL Normal 01-22-2017 [facility] (66978) Comment: Performed By: #### HEMDF, PT /AP, CMP3, TSH4, B12, BNP3, RPR ####[place] [address] [place] [address] glucose,bedside on 2017-01-22 Glucose mass conc 136 70-100 mg/dL High 01-22-2017 [facility] (45678) Comment: Result Comment: Test perform ed by glucose meter. Results may be 10%-15% lowerthan serum/plasma value s. (CLIA ID [id number]) Performed By: #### UAMAC, UA NIGEL ####[place] [place] [address] Glucose mass conc 153 70-100 mg/dL High 01-22-2017 [facility] (17553) Comment: Result Comment: Test perform ed by glucose meter. Results may be 10%-15% lowerthan serum/plasma value s. (CLIA ID [id number]) Performed By: #### UAMAC, UA NIGEL ####[place] [place] [address] culture urine on 02-02-06 CULTURE Specimen Source Comment:Urine, clean catch Normal 01-22-2017 [facility] URINE [facility] Patient name: Desmond RESENDIZ MNguyenR.N.: [id number] : 1945 System Age: 71 Sex: F Ord. ([id number]) Physician: SANAM BARAHONA Location: [address] [place] [address] Copy to: SANAM BARAHONA Adm. Date: 01/22/17 MICROBIOLOGYORDER#: [id number] COLLECTED: 01/22/17 12:10SOURCE: Urine RECEIVED: 01/22/17 12:24 OE C O M M E N T S Specimen Source Comment:Urine, clean catchCULTURE URINE FINAL 01/23/17 15:00>100,000 CFU/ml Vicenta kefyr Comment: Performed By: #### UAMAC, UA NIGEL ####[address] [address] [address] head or brain w/o contrast on 2017-01-22 CT Head or Brain Patient Name: BABAK, Lucien 0 01-22-2017 [facility] w/o Contrast [facility] ([id number]) CT Exam Date/Time 01/22/2017 12:42:[address] Head or Brain w/o Contrast Ordering Physician MD BARAHONA JACOB A Accession Number [id number] CPT4 Codes 31369 () Reason For Exam Altered mental status [...] Abdomen/Pelvis w/o Patient Name: BABAK, Lucien 01-22-2017 [facility] Contrast [facility] (08786) CT Exam Date/Time 01/22/2017 12:44:[address] Abdomen/Pelvis (No PO, No IV) Ordering Physician HERMES GARNETT Accession Number [id number] CPT4 Codes 19351 (CT Abdomen/Pelvis (No PO, No IV)) Reason [...] Alkaline phosphatase (ALP) 77 45-117 U/L Normal [facility] (57036) Comment: Performed By: #### HEMDF, PT /AP, CMP3, TSH4, B12, BNP3, RPR ####[address] [address] Bilirubin (total) 0.6 0.2-1.0 mg/dL Normal 01-22-2017 [facility] (87963) Comment: Performed By: #### HEMDF, PT /AP, CMP3, TSH4, B12, BNP3, RPR ####[address] [address] Protein 7.0 6.4-8.2 g/dL Normal 01-22-2017 [facility] (53784) Comment: Performed By: #### HEMDF, PT /AP, CMP3, TSH4, B12, BNP3, RPR ####[address] [address] Alanine aminotransferase (ALT) 35 12-78 U/L Normal 01-22-2017 [facility] (96778) Comment: Performed By: #### HEMDF, PT /AP, CMP3, TSH4, B12, BNP3, RPR ####[address] [place] [address] Anion gap 9 mmol/L Normal 01-22-2017 [facility] (00928) Comment: Performed By: #### HEMDF, PT /AP, CMP3, TSH4, B12, BNP3, RPR ####[address] [place] [address] Aspartate aminotransferase (AST) 10 15-37 U/L Low 01-22-2017 [facility] (73707) Comment: Performed By: #### HEMDF, PT /AP, CMP3, TSH4, B12, BNP3, RPR ####[address] [address] Creatinine 1.19 0.55-1.40 mg/dL Normal 01-22-2017 [facility] (68057) Comment: Performed By: #### HEMDF, PT /AP, CMP3, TSH4, B12, BNP3, RPR ####[address] [address] eGFR (black) 53.8 >60 mL/min Normal 01-22-2017 [facility] (67172) Comment: Performed By: #### HEMDF, PT /AP, CMP3, TSH4, B12, BNP3, RPR ####[address] [address] eGFR (non-black) 44.4 >60 mL/min Normal 01-22-2017 [facility] (20668) Comment: Result Comment: Source- MDRD equation with creatinine calibration to IDNY(NKDEP)eGFR not recommen ded for drug dose adjustment Performed By: #### HEMDF, PT /AP, CMP3, TSH4, B12, BNP3, RPR ####[address] [address] Albumin 3.2 3.4-5.0 g/dL Low 01-22-2017 [facility] (81318) Comment: Performed By: #### HEMDF, PT /AP, CMP3, TSH4, B12, BNP3, RPR ####[place] [address] [place] [address] Urea nitrogen 24 7-25 mg/dL Normal 01-22-2017 [facility] (26900) Comment: Performed By: #### HEMDF, PT /AP, CMP3, TSH4, B12, BNP3, RPR ####[place] [address] [place] [address] Calcium 8.7 8.2-10.1 mg/dL Normal 01-22-2017 [facility] (70700) Comment: Performed By: #### HEMDF, PT /AP, CMP3, TSH4, B12, BNP3, RPR ####[place] [address] [place] [address] CO2 22 21-32 mmol/L Normal 01-22-2017 [facility] (80145) Comment: Performed By: #### HEMDF, PT /AP, CMP3, TSH4, B12, BNP3, RPR ####[place] [address] [place] [address] Glucose mass conc 184 70-100 mg/dL High 01-22-2017 [facility] (28857) Comment: Performed By: #### HEMDF, PT /AP, CMP3, TSH4, B12, BNP3, RPR ####[place] [address] [place] [address] Chloride 112 98-109 mmol/L High 01-22-2017 [facility] (84988) Comment: Performed By: #### HEMDF, PT /AP, CMP3, TSH4, B12, BNP3, RPR ####[place] [address] [place] [address] Potassium molar conc 3.8 3.5-5.1 mmol/L Normal 7 [facility] (43489) Comment: Performed By: #### HEMDF, PT /AP, CMP3, TSH4, B12, BNP3, RPR ####[place] [address] [place] [address] Sodium 143 135-145 mmol/L Normal 01-22-2017 [facility] (69460) Comment: Performed By: #### HEMDF, PT /AP, CMP3, TSH4, B12, BNP3, RPR ####[address] [place] [address] Encounters Date Type Reason Provider Location 12-04-2017 - Ambulatory Left bundle-branch [facility] 12-05-2017 block, unspecified [facility] Medic [facility] [place] [facility] ([id number]) [facility] 08-14-2017 - Ambulatory [facility] 08-14-[address] [facility] [address] ([id number]) 06-23-2017 Ambulatory [facility] (0 0000) 02-19-2017 Ambulatory Type 2 diabetes KEVIN PAGE [facility] Heal th mellitus with SANAM A JUN SANAM System ( [address]) unspecified A [facility] complications 02-18-2017 Ambulatory Major depressive SANAM A JUN SANAM [facility] disorder, single A [facility] ([address]) episode, unspecified 02-18-2017 Ambulatory Edema, unspecified Luke Hashiguchi [facility] Health [facility] A JUN SANAM System (0 0000) A [facility] 02-10-2017 [facility] (0 0000) A [facility] 02-06-2017 Ambulatory Paroxysmal atrial [facility] (0 0000) A [facility] 01-28-2017 Ambulatory Vascular dementia KEVIN PAGE [facility] He alth without behavioral [facility] A JUN [facility]NAM Sys tem ([address]) disturbance A [facility] 01-23-2017 Ambulatory Encounter for fitting [facility]es [facility] of A JUN [facility]NAM A System ( [address]) urinary device [facility] 01-22-2017 Ambulatory Calculus of ureter Tyrone [facility] A JUN SANAM A System (38326 ) [facility] 08-06-2018 Patient encounter [facility] Facility :[place] [facility] 03-03-2018 Patient encounter [facility] Facility :[place] [facility] Payers Payer Name Policy Number Location TAJ ARELLANO DUAL [employer]VANTAGE [id number] [facility] MEDICARE ([id number]) [facility] ([id number]) [facility] [id number] [facility] ([id number]) [id number] [facility] ([id number]) [id number] [facility] ([id number]) [id number] [facility] (17600) The following information is from the original [...] BE BASED ON THE PRIMARY CLINICAL RECORDS. [facility] provides no warranty or guarantee of the accuracy or completeness of information in this document. UNRECOGNIZED CONTENT PROVIDED BELOW FOR UNRECOGNIZED SECTION INFORMATION SOURCE DATE CREATED AUTHOR AUTHOR'S ORGANIZATIO N 01/06/2018 [facility] CREATED AUTHOR AUTHOR'S ORGANIZATIO N 01/12/2018 [facility] DATE CREATED AUTHOR AUTHOR'S ORGANIZATIO N 01/13/2018 [facility] DATE CREATED AUTHOR AUTHOR'S ORGANIZATIO N 10/23/2018 [facility] DATE CREATED AUTHOR AUTHOR'S ORGANIZATIO N 02/23/2019 [facility]
--- OUTSIDE RECORDS SUMMARY | 2020-05-01 19:06 | XMS RPT_ITS | CCD ---
:1945 External Reference #:[id number] Author Organization [facility] Care Team Providers Name Role Phone [...] Onset Location colchicine Translations: AOF 11-13-2011 - [facility] Other [ COLCHICINE, COLCHICINE] Ca mpus Repository Problems Active Problems Category Problem Name Status Date Location Cardiac dysrhythmias Paroxysmal atrial Active 02-06-2017 - [place] [facility] Health fibrillation System (13000) Conduction disorders Left bundle-branch Active 08-14-2017 - [facility] block, unspecified Medical C enter (40391) Congestive heart Heart failure, Active 02-06-2017 - [facility] lt failure; nonhypertensive unspecified Sys tem (23647) Coronary atherosclerosis Atherosclerotic heart Active 017 - [facility] and other heart disease disease of [place] System (68648) coronary artery without angina pectoris Delirium, dementia Vascular dementia with Active 01-23-2017 [facility] amnestic and other behavioral disturbance System (94609) cognitive disorders Diabetes mellitus with Type 2 diabetes mellitus Active 2016 [facility] complications with unspecified System (00 000) complications Diabetes mellitus Type 2 diabetes mellitus Active 02-06-2017 [facility] without complication without complications System (42177) Genitourinary symptoms Encounter for fitting Active [facility] and ill-defined and adjustment of System (86906) conditions urinary device Heart valve disorders Nonrheumatic mitral Active 02-06-2017 [facility] (valve) insufficiency System (85986) Hypertension with Hypertensive heart Active 01-23-2017 [facility] Health complications and disease with heart Syst em (06158) secondary hypertension failure Mood disorders Major depressive Active 02-18-2017 [facility] disorder, single System (000 00) episode, unspecified Nutritional deficiencies Vitamin D deficiency, Active [facility] unspecified System (42673) Osteoarthritis Unspecified Active 02-06-2017 [facility] osteoarthritis, System (0000 0) unspecified site Other nervous system Other symptoms and signs Active 01-24-20 [facility] disorders involving cognitive System ( 58990) functions and awareness Thyroid disorders Hypothyroidism, Active 02-19-2017 [facility] ealth unspecified System (68230) Past or Other Problems Category Problem Name Status Date Location Administrative/social Homelessness Completed 02-19-2017 [facility] admission System (49901) Allergic reactions Allergy status to Completed 02-06-2017 [facility] Health other drugs, System (34838) medicaments and biological substances status Calculus of urinary Calculus of ureter Completed 01-22-2017 [facility] Health tract System (59091) Malaise and fatigue Other malaise Completed 02-19-2017 [facility] ealth System (07676) Other aftercare [facility] (current) Completed 02-19-2017 [facility] use of insulin System (98680 ) Other connective Other specified soft Completed 02-06-2017 [facility] tissue disease tissue disorders System (0 0000) Pulmonary heart Other pulmonary Completed 02-18-2017 [facility] disease embolism without acute Syste m (33491) cor pulmonale Unclassified Edema, unspecified Completed 01-23-2017 - [facility] System (32656) Results Result Name Value Range Unit Interpretation Flag Date Location urine culture on 07-03-02 Bacteria identified Sp. Request/Comment: - Presu rgical Sterilization Specimen received in preservative Normal 02-18-2019 [facility] Cx Nom (U) Chauhan (65447) Culture Result - No growth (<100 CFU/ml) Comment: Performed By: #### URCUL ### #[facility] [address] [place], [place] [phone] progress on 2019-02 PROGRESS HNO ID: [id number] Normal 02-18-2019 [facility] Author: Jakub Aranda) Ania [place] ([id number]) Service: ? Author Type: Physician Vice President Network Development Type: Progress Notes Filed: 02/22/2019 7:51 PM Note Text: [facility] [place] PATIENT INFO: Abbey Resendiz 73 year old [facility] # [id number] PCP: Jony Wills MD Referred by: Self [...] prob lems. No history of angina, CHF, WA, cardiac surgery of stents. Respiratory: Negative for [...] s. Neurologic: No history of TIA's, stroke, FINANCE [employer]ESSION[employer] tumor, impaired sensorium, hemiplegia, paraplegia or quadriplegia. [...] CNOV Office Visit (UROLWS) Normal 02-19-20 19 [place] [facility] ABBEY RESENDIZ ([id number]) 1945 F [place] Date Time Provider Department (01976) 02/18/19 9:30 AM JAKUB ESTRELLA) UROLWS During your visit today, we recorded the following informati on about you: Pulse Blood pressure Weight Height 54/minute 145/87 78 kg 1.524 m GERMAIN Magdaleno 02/22/2019 7:51 PM Signed [facility] [place] PATIENT INFO: Abbey Resendiz 73 year old [facility] # [id number] PCP: Jony Wills MD Referred by: Self [...] prob lems. No history of angina, CHF, WA, cardiac surgery of stents. Respiratory: Negative for [...] s. Neurologic: No history of TIA's, stroke, FIN[employer] PROFESSIONAL tumor, impaired sensorium, hemiplegia, paraplegia or quadriplegia. [...] Diagnosis:Recurrent UTI [N39.0] Order(s):UA DIP, URINE (POC) [[id number]] Order #: [id number] . #:[id number] [] sulfamethoxazole-trimethoprim (BACTRIM DS) 800-160 mg per tabletTake 1 tablet by mouth twice daily for 3 days.Disp: 6 tabletRfl: 0 URINE CULTURE [SQURCUL] Order #: [id number] FUTURE Prescriptions as of 02/18/2019 Sig: FLONASE [...] 02/22/19 progress on 2018-11 PROGRESS HNO ID: [id number] Normal 12-15-2018 [facility] Author: Lawson Chauhan ([id number]) Service: ? Author Type: Physician Type: Progress Notes Filed: 12/15/2018 2:05 PM Note Text: PERTINENT CARDIAC HISTORY LBBB HTN HL DM PAF? ASHD? CHF? ADHERENCE TO GUIDELINES SONIA-I or ARB for HF with prior LVEF<40 (NQF 0081) - N/A ASA or Plavix for ASHD (NQF 0067) - N/A Beta zara for ASHD with prior WA or prior LVEF<40 (NQF 00 70) - [...] checked. She would like to follow-up with [facility] and we will assist her [...] EKG1 NAME : ABBEY RESENDIZ Normal 12-16-19 [facility] PID : [id number] Vic aparicio ([id number]) : 1945 Gender : Female Race : [...] ms QTC Calculation(Bezet) : 501 ms P [place] : 22 degrees R [place] : -43 degrees T [place] : 107 degrees Test Reason : Location : 136 : [facility] Overread By : LAWSON MADRIGAL MD Edited By : LAWSON MADRIGAL MD Referred By : LAWSON MADRIGAL Acquired by : jyoti ÁLVAREZ on 2018-12-15 CNOV Office Visit (CAWSTR) Normal 12-16-19 [place] [facility] ABBEY RESENDIZ ([id number]) 1945 F [facility] Time Provider Department (50987) 12/15/18 2:00 PM LAWSON MADRIGAL E CAWSTR [...] N/A Beta zara for ASHD with prior WA or prior LVEF<40 (NQF 00 70) - [...] checked. She would like to follow-up with [facility] and we will assist her [...] followi ng areas and commit to making tank terminal gauger changes. EAT A WHOLE FOOD, PLANT BASED [...] in your area. Referring Provider: LAWSON MADRIGAL [[id number]] Allergies As of Date: 12/15/2018 Noted Allergy Reaction COLCHICINE 11/13/2011 8 - GI Upset Date Reviewed: 12/15/2018 Reviewed by: Jose Cummings RN - Fully Assessed Reason for Visit: Recheck [92] Primary Visit Diagnosis:PAF (paroxysmal atrial fibrillation) (HCC) [I48.0] Other Visit Diagnosis:ASHD (arteriosclerotic heart disease) [I25.10] Order(s):ECG COMPLETE [ECG01] Order #: [id number] FUTURE BASIC METABOLIC PNL [SQBMP] Order #: [id number] FUTURE Prescriptions as of 12/15/2018 Sig: ATORVASTATIN [...] the following areas and commit to making tank terminal gauger changes. EAT A WHOLE FOOD, PLANT BASED [...] LAWSON MADRIGAL MD on 12/15/18 cnnurse on [facility] Nurse Visit (CAWSTR) Normal 9 [place] ABBEY Rodriguez ([id number]) 1945 F [place] Date Time Provider Department ([id number]) 12/15/18 4:00 PM NURSE CARD ADMIN [facility] WSTR CAWSTR During your visit today, we recorded the following informati on about you: Jose Cummings RN 12/15/2018 3:38 PM Signed Ekg completed per order. Pt tolerated procedure without dist ress. Jose Cummings RN Referring Provider: LAWSON MADRIGAL [[id number]] Allergies As of Date: 12/15/2018 Noted Allergy Reaction COLCHICINE 11/13/2011 8 - GI Upset Date Reviewed: 12/15/2018 Reviewed by: Jose Cummings RN - Fully Assessed Reason for Visit: Nurse Visit [792] Visit Diagnoses:PAF (paroxysmal atrial fibrillation) (HCC) [ I48.0] ASHD (arteriosclerotic heart disease) [I25.10] Order(s):ECG COMPLETE [ECG01] Order #: [id number] Prescriptions as of 12/15/2018 Sig: ATORVASTATIN 40 [...] TSH Qn 2.240 0.400-5.500 uU/mL Normal 06-21-2018 [facility] (89332) Comment: Performed By: #### TSH #### [facility] [address] [place], [place] [address] progress on 2018-06 PROGRESS HNO ID: [id number] Normal 06-21-2018 [facility] Author: Lawson Madrigal [place] ([id number]) Service: (none) Author Type: Physician Type: Progress Notes Filed: 06/21/2018 4:11 PM Note Text: PERTINENT CARDIAC HISTORY BBB HTN HL DM PAF? ASHD? CHF? ADHERENCE TO GUIDELINES SONIA-I or ARB for HF with prior LVEF<40 (NQF 0081) - N/A ASA or Plavix for ASHD (NQF 0067) - N/A Beta zara for ASHD with prior WA or prior LVEF<40 (NQF 00 70) - [...] Magnesium [Mass/Vol] 1.7 1.7-2.3 mg/dL Normal [address] [facility] (29543) cnov on 2018-06-21 CNOV Office Visit (CAWSTR) Normal 06-21-20 18 [place] [facility] ABBEY RESENDIZ ([id number]) 1945 F [place] Date Time Provider Department (80493) 06/21/18 1:45 PM LAWSON MADRIGAL CAWSTR During [...] N/A Beta zara for ASHD with prior WA or prior LVEF<40 (NQF 00 70) - [...] - lifestyle recommendation form Recommendation for whole tmai d, plant based diet - lifestyle recommendation [...] followi ng areas and commit to making custodial changes. EAT A WHOLE FOOD, PLANT BASED [...] in your area. Referring Provider: LAWSON MADRIGAL [[id number]] Allergies As of Date: 06/21/2018 Noted Allergy Reaction COLCHICINE 11/13/2011 8 - GI Upset Date Reviewed: 06/21/2018 Reviewed by: Tressa Ontiveros MA - Fully Assessed Reason for Visit: Established Patient [175] Primary Visit Diagnosis:PAF (paroxysmal atrial fibrillation) (HCC) [I48.0] Other Visit Diagnosis:Essential hypertension [I10] Order(s):BASIC METABOLIC PNL [SQBMP] Order #: [id number] FUT URE TSH BLD [SQTSH] Order #: [id number] FUTURE Prescriptions as of 06/21/2018 Sig: ATORVASTATIN [...] the following areas and commit to making custodial changes. EAT A WHOLE FOOD, PLANT BASED [...] 2018-06-21 Absolute nRBC <0.01 <0.01 Normal 06-21-2018 [facility] (47176) Comment: Performed By: #### CBC #### [facility] [address] [place], [place] [address] Erythrocyte distribution 13.2 11.5-15.0 % Normal 06-21 [facility] width (RBC) [Ratio] [place] (96130) Comment: Performed By: #### CBC #### [facility] [address] [place], [place] [address] Hematocrit (Bld) [Volume 43.5 36.0-46.0 % Normal 06-21 [facility] (69933) Comment: Performed By: #### CBC #### [facility] [address] [place] [address] Hemoglobin (Bld) 14.4 11.5-15.5 g/dL Normal 06-21-2018 [facility] [Mass/Vol] [place] (81537) Comment: Performed By: #### CBC #### [facility] [address] [place] [address] MCH (RBC) [Entitic mass] 33.0 26.0-34.0 pG Normal 06-[address] [facility] (97240) Comment: Performed By: #### CBC #### [address] [address] MCHC (RBC) [Mass/Vol] 33.1 30.5-36.0 g/dL Normal 06-21-[address] [facility] (56330) Comment: Performed By: #### CBC #### [address] [address] MCV (RBC) [Entitic vol] 99.8 80.0-100.0 fL Normal 06-[address] [facility] (73464) Comment: Performed By: #### CBC #### [facility] [address] [place] [address] Platelet mean volume 12.3 9.0-12.7 fL Normal 8 [facility] (Bld) [Entitic vol] [place] (58129) Comment: Performed By: #### CBC #### [facility] s [address] [place] [address] Platelets (Bld) [#/Vol] 194 150-400 k/uL Normal [address] [facility] (64058) Comment: Performed By: #### CBC #### [facility] [address] [place], [place] [id number] RBC (Bld) [#/Vol] 4.36 3.90-5.20 m/uL Normal 06-21-2018 [facility] (87826) Comment: Performed By: #### CBC #### [facility] [address] [place] [address] WBC (Bld) [#/Vol] 8.37 3.70-11.00 k/uL Normal 06-21-[address] [facility] (63458) Comment: Performed By: #### CBC #### [facility] [address] [place], [place] [address] basic metabolic panl on 2018-06-21 Anion gap [Moles/Vol] 12 mmol/L Normal 06-21-[address] [facility] (24626) Calcium [Mass/Vol] 9.6 8.5-10.2 mg/dL Normal 06-21-[address] [facility] (51456) Chloride [Moles/Vol] 100 97-105 mmol/L Normal [address] [facility] (37510) CO2 [Moles/Vol] 23 22-30 mmol/L Normal 06-21-2018 [facility] (55666) Creatinine [Mass/Vol] 0.97 0.58-0.96 mg/dL High 06-21-[address] [facility] (14970) eGFR- Amer. >60 Normal 06-21-[address] [facility] (59558) GFR/1.73 sq M predicted 56 . Normal 2017 [facility] among non-blacks MDRD [place] (05652) (S/P/Bld) [Vol rate/Area] Comment: Result Comment: eGFR [...] Glucose [Mass/Vol] 314 74-99 mg/dL High 06-21-[address] [facility] (85574) Potassium [Moles/Vol] 3.9 3.7-5.1 mmol/L Normal 06-21-[address] [facility] (06103) Sodium [Moles/Vol] 135 136-144 mmol/L Low 06-21-[address] [facility] (62309) Urea nitrogen [Mass/Vol] 20 7-21 mg/dL Normal 06-[address] [facility] (77506) progress on 2017-11 PROGRESS HNO ID: [id number]: Lawson jang 12-04-2017 Marni Chan: (none)Author Type: General PhysicianType: Progress NotesFiled: Medical 12/04/2017 5:18 PMNote Text:PERTINENT CARDIAC Center HISTORYLBBBHTNHLDMPAF?ASHD?CHF?ADHERENCE TO (20383) GUIDELINESACE-I or ARB for HF with prior LVEF<40 (NQF 0081) - N/AASA or Plavix for ASHD (NQF 0067) - N/ABeta zara for ASHD with prior WA or prior LVEF<40 (NQF 0070) - N/ABeta [...] valvular disease.Laboratory studies were performed at the group home. She was advised toincrease her fluid intake. Follow-up basic profile is pending.Electronically Signed:Sera Parrish 2017 4:29 PMCC: Jony Wills MD cnov on 2017-12-04 CNOV Office Visit Normal 12-04-2017 Marni (AGCARDWST) ABBEY RESENDIZ ([id number]) 1945 F Date Time Provider Department12/04/17 3:00 PM LAWSON MADRIGAL [facility] During your visit today, we recorded the following information about you: Pulse Blood pressure Weight Cente r 62/minute 138/82 77.9 kgKenn freddy Madrigal MD 12/04/2017 5:18 PM SignedPERTINENT CARDIAC (75985) HISTORYLBBBHTNHLDMPAF?ASHD?C HF?ADHERENCE TO GUIDELINESACE-I or ARB for HF with prior LVEF<40 (NQF 0081) - N/AASA or Plavix for ASHD (N QF 0067) - N/ABeta zara for ASHD with prior WA or prior LVEF<40 (NQF 0070) - N/ABeta [...] to Continue Her Current Medication in the [place] antime.I Will See Her in 8 Months [...] valvular disease.Laboratory studies were performed at [facility]. She was advised toincrease her fluid [...] programs in your area.Referring Provider: LAWSON POPE [[id number]]Allergies As of Date: 12/04/2017 Noted Allergy ReactionCOLCHICINE [...] the following areas and commit to making tank terminal gauger changes. EAT A WHOLE FOOD, PLANT BASED [...] area.Follow-up and Dispositi on History RecordedEncounter Number: [id number] Status:Closed by LAWSON MADRIGAL MD on 12/04/17 progress on 2017-07 PROGRESS HNO ID: [id number]: Lawson jang 08-14-2017 Marni Chan: (none)Author Type: General PhysicianType: Progress NotesFiled: Medical 08/14/2017 5:58 PMNote Text:PERTINENT CARDIAC Center HISTORYLBBBHTNHLDMPAF?ASHD?CHF?ADHERENCE TO (53803) GUIDELINESACE-I or ARB for HF with prior LVEF<40 (NQF 0081) - N/AASA or Plavix for ASHD (NQF 0067) - N/ABeta zara for ASHD with prior WA or prior LVEF<40 (NQF 0070) - N/ABeta [...] of this note will be sent to [facility].Written and verbal health teaching given to patient, patient verbalizesunderstanding and agrees with treatment plan.This note was generated using Closely voice recognition system, and theremay be some incorrect words, spellings, and punctuation that were notnoted in checking the note before saving.DIAGNOSIS FOR VISIT:CardiomegalyHISTORY OF PRESENT ILLNESSAbbey Resendiz is a 71-year-old woman who was seen in the office todayat the request of a nurse practitioner at [facility], who reports that she has cardiomegaly. No [...] year but states that she lives in [facility] cannot give me her address. She knows her date of ..Musculoskeletal: No joint deformities.EKG shows sinus rhythm with left bundle branch block. No prior EKGs areavailable.No recent labs are available. Prior LDL was 93 and renal function was lownormal.Electronically Signed:Lawson Madrigal MDAugust 14, 2017 5:48 [facility] Jony Wills MD cnov on 2017-08-14 CNOV Office Visit Normal 08-14-2017 Marni (AGCARDWST) ABBEY RESENDIZ ([id number]) 1945 F Date Time Provider Department08/14/17 1:00 PM LAWSON MADRIGAL [facility] During your visit today, we recorded the following information about you: Pulse Blood pressure Weight Cente r Height 80/minute 114/72 74.6 kg 1.524 Feliciano Madrigal MD 08/14/2017 5:58 PM SignedPERTINENT CARDIAC () HISTORYLBBBHTNHLDMPAF?ASHD?C HF?ADHERENCE TO GUIDELINESACE-I or ARB for HF with prior LVEFANDlt;40 (NQF 0081) - N/AASA or Plavix for ASHD (NQF 0067) - N/ABeta zara for ASHD with prior WA or prior LVEFANDlt;40 (NQF 0070) - N/ [...] of this note will be sent to [facility].Wri tten and verbal health teaching given to patient, patient verbalizesunderstanding and agrees with treatment plan.This note was generated using Closely voice recognition system, and ther e may besome incorrect words, spellings, and punctuation that were not noted inchecking the note before s franci.DIAGNOSIS FOR VISIT:CardiomegalyHISTORY OF PRESENT ILLNESSAbbey Resendiz is a 71-year-old woma n who [facility] assisted dee woodward, [employer] that she has [...] year but states that she lives in [place] cannot give me her address. She knows [...] to Dr. Wills's office.Referring Provider: JONY PACHECO [[id number]]Allergies As of Date: 08/14/2017 Noted Allergy ReactionCOLCHICINE 2 8 - GI UpsetDate Reviewed: 08/14/2017Reviewed by: Josafat (Rn) MIKAYLA Ames - Fully AssessedReason for Vis it: New Patient [172]Primary Visit Diagnosis:LBBB (left bundle branch block) [I44.7]Order(s):ECG B/O W IN TERP (MED OFFICE) [ECG06] Order #: [id number] ECHO [665790] Order #: [id number]: 1 FUTURE BASI C METABOLIC PNL [SQBMP] Order #: [id number] FUTURE CBC [SQCBC] Order #: [id number] FUTURE TSH BLD [S QTSH] Order #: [id number] FUTURE MAGNESIUM BLD [SQMG1] Order #: [id number] FUTUREPrescriptions as of Sig: FERROUS SULFATE 325 [...] following areas and comm it to making custodial changes. EAT A WHOLE FOOD, PLANT BASED [...] filed during this visit:Extended VitalsEncount er Number: [id number] Status:Closed by LAWSON MADRIGAL MD on 08/14/17 glucose,bedside on 2017-02-07 Glucose mass conc 107 70-100 mg/dL High 02-07-2017 S [facility] (50194) Comment: Result Comment: Test perform ed by glucose meter. Results may be 10%-15% lowerthan serum/plasma value s. (CLIA ID [id number]) Performed By: #### HEMDF, PT /AP, CMP3, TSH4, B12, BNP3, RPR ####[address] [address] echo complete w/wo contrast on 2017-02-07 Echo Patient Name: ABBEY RESENDIZ [id number] Normal 02-07-2017 [facility] Complete Ultrasound Exam Date/T elyssa 02/07/2017 09:59:54 EDT Exam Echo Complete Health w/wo w/wo Contrast Ordering Physician MD WHYTE LORI Accession Number System Contrast [id number] Reason For Exam pulmonary embolus Report TRANSTHORACIC ([id number]) ECHOCARDIOGRAM PATIENT: Abbey Resendiz STUDY DATE: 2016 : 1945 [id number] AGE: 71 HT/WT: 152.4 cm (60 66.7 kg (146.7 in) lb) GENDER: F BP: 1 LOCATION: [facility] PATIENT Outpatient [facility] STATUS: *ORDERING PHYSICIAN: * Kandice Whyte *READING PHYSICIAN: * Arthur hendrickson MD *SOFTWARE QA SYSTEM SPECIALIST: * Edgar Antunez --- INDICATIONS: Pulmonary embolism. [...] mmHg. --- STUDY DATA: Complete transthoracic echocardiogram. Yuidth dure: Image quality was good. M-mode, complete [...] PERICARDIUM: There is no pericardial effusion. SYSTE NIEGL VEINS: Not well visualized. Inferior vena cava: [...] Bilirubin Patient Name: ABBEY RESENDIZ FIN: [id number] Normal 02-06-2017 [facility] (total) Ultrasound Exam Date/Time 02/06/2017 10:43 :01 EDT Exam VL Venous Health Duplex US Lower Ext Bilateral Ordering Physician JENNY TSANG , Zoopla Accession Number [id number] CPT4 Codes 90559 () Reason Fo r Exam edema, (18966) pain, elevated d-dimer Report [facility] --- Lower Extremity Venous Duplex Report Patient Name: Abbey Oliveros : 1945 Study 02/06/2017 (71yrs) Date: Age: 71 Account: [id number] Gender: F Loc: [facility] 2654 BP: Ordering: Nolvia Tsang Technologist: Antonio Lao n: Nolvia Tsang Bank Courier: Neli Shaw hysician: Safia Cloud --- Location: [facility] INDICATIONS: Edema b ilateral ankle [...] DATA: [facility] Birthdate: Patient birthdate: 1945. Age: Patient is 71 yr old. Sex: Gender: female. Ethnicity: Ethnicity: white. Doppler flow [facility] including spectral analysis, color and soils scale imaging. Patient sta tus: Observation. Procedure: A vascular evaluation was perf ormed. The images were obtained using a Retsly E9 vascular ultrasound machine. --- VENOUS FLOW [...] +------ --+ Electronically signed by: Safia Cloud [id number]:56: 45 Final Dictated: 02/06/2017 10:57 am Dictating Physicia n: SAFIA CLOUD Signed Date and Time: 02/06/2017 10:56 am Signed by: SAFIA CLOUD urinalysis,microscopic on 2017-02-06 Urine, bacteria in Few (1-5) Negative Normal 02-06-2017 [facility] sediment (96583) Comment: Performed By: #### HEMDF, PT /AP, CMP3, TSH4, B12, BNP3, RPR ####[place] [address] [place] [address] Urine, epithelial cells in 0-2 3-5 Normal [facility] (61092) sediment Comment: Performed By: #### HEMDF, PT /AP, CMP3, TSH4, B12, BNP3, RPR ####[place] [address] [place] [address] Urine, erythrocytes in Negative 0-2 /[HPF] Normal 017 [facility] sediment by area (00 000) Comment: Performed By: #### HEMDF, PT /AP, CMP3, TSH4, B12, BNP3, RPR ####[place] [address] [place] [address] Urine, leukocytes in 11-25 0-5 Normal 7 [facility] sedmiment (65452) Comment: Performed By: #### HEMDF, PT /AP, CMP3, TSH4, B12, BNP3, RPR ####[place] [address] [place] [address] Urine, yeast presence in Few (1-5) Negative Normal 02-06 [facility] sediment (75513) Comment: Performed By: #### HEMDF, PT /AP, CMP3, TSH4, B12, BNP3, RPR ####[place] [address] [place] [address] urinalysis,macro on 2017-02-06 Bilirubin (direct) NEG Negative mg/dL Normal 02-06-2017 [facility] ([id number]) Comment: Performed By: #### HEMDF, PT /AP, CMP3, TSH4, B12, BNP3, RPR ####[place] [address] [place] [address] Ketone,Urine NEG Negative Normal 02-06-2017 [facility] ([id number]) Comment: Performed By: #### HEMDF, PT /AP, CMP3, TSH4, B12, BNP3, RPR ####[place] [address] [place] [address] Occult Blood,Ur NEG Negative Normal 02-06-2017 [facility] (38425) Comment: Performed By: #### HEMDF, PT /AP, CMP3, TSH4, B12, BNP3, RPR ####[place] [address] [place] [address] Specific [place],Urine 1.005 1.005-1.030 Normal 02-06 [facility] (46658) Comment: Performed By: #### HEMDF, PT /AP, CMP3, TSH4, B12, BNP3, RPR ####[place] [address] [place] [address] Total Protein,Urine NEG Negative Normal 02-06-2017 [facility] (47208) Comment: Performed By: #### HEMDF, PT /AP, CMP3, TSH4, B12, BNP3, RPR ####[place] [address] [place] [address] Urine, appearance clear Clear Normal 02-06-2017 [facility] (84767) Comment: Performed By: #### HEMDF, PT /AP, CMP3, TSH4, B12, BNP3, RPR ####[place] [address] [place] [address] Urine, color p. yel Lt. Yellow Normal 02-06-2017 [facility] (41912) Comment: Performed By: #### HEMDF, PT /AP, CMP3, TSH4, B12, BNP3, RPR ####[place] [address] [place] [address] Urine, glucose presence NORM Negative Normal 2016 [facility] (86837) Comment: Performed By: #### HEMDF, PT /AP, CMP3, TSH4, B12, BNP3, RPR ####[place] [address] [place] [address] Urine, nitrite presence NEG Negative Normal 2016 [facility] (75668) Comment: Performed By: #### HEMDF, PT /AP, CMP3, TSH4, B12, BNP3, RPR ####[place] [address] [place] [address] Urine, pH 5.0 5.0-8.0 [pH] Normal 02-06-2017 [facility] (95191) Comment: Performed By: #### HEMDF, PT /AP, CMP3, TSH4, B12, BNP3, RPR ####[place] [address] [place] [address] Urine, urobilinogen NORM 0-1 Normal 02-06-2017 [facility] (96477) Comment: Performed By: #### HEMDF, PT /AP, CMP3, TSH4, B12, BNP3, RPR ####[place] [address] [place] [address] WBC (Leukocytes) 1+ Negative Normal 02-06-2017 [facility] (79122) Comment: Performed By: #### HEMDF, PT /AP, CMP3, TSH4, B12, BNP3, RPR ####[place] [address] [place] [address] troponin i on 02-06 Troponin I.cardiac < 0.015 0.000-0.045 ng/mL Normal 7 [facility] mass conc (41578) Comment: Result Comment: 0.046 - 0.40 0 = Indeterminate> 0.400 = Consider Myocardial Injury Performed By: #### HEMDF, AP TT, PT, CMP3, BNP3, DDI, TSH4, LIPD2, TROPN ####[address] [place] [address] thyroid stim. hormone on 2017-02-06 Thyroid Stim. Hormone 4.510 0.358-3.740 uU/mL High 2016 [facility] (11724) Comment: Performed By: #### HEMDF, AP TT, PT, CMP3, BNP3, DDI, TSH4, LIPD2, TROPN ####[place] [address] [place] [address] prothrombin time on 2017-02-06 INR Coag RelTime (PPP) 0.9 0.9-1.1 {INR} Normal 017 [facility] (17753) Comment: Result Comment: Recommended Anticoagulant Therapy:SEE BELOW----- [...] PT, CMP3, BNP3, DDI, TSH4, LIPD2, TROPN ####[place] [address] [place] [address] Prothrombin time (PT) Coag 9.7 9.0-12.0 s Normal [facility] time (PPP) (86670) Comment: Result Comment: . Performed By: #### HEMDF, AP TT, PT, CMP3, BNP3, DDI, TSH4, LIPD2, TROPN ####[address] [address] nt pro bnp on 02-06 BNP 310 0-125 pg/mL High 02-06-2017 [facility] (58488) Comment: Performed By: #### HEMDF, AP TT, PT, CMP3, BNP3, DDI, TSH4, LIPD2, TROPN ####[address] [address] lipid panel on 2016 Cholesterol to HDL Ratio 3 Normal 02-06 [facility] (38124) Comment: Result Comment: Ref Range:< 3 Low Risk for CHD3-6 Mod Risk for CHD> 6 High Risk for CHD Performed By: #### HEMDF, AP TT, PT, CMP3, BNP3, DDI, TSH4, LIPD2, TROPN ####[address] [address] HDL Cholesterol 50 40-59 mg/dL Normal 02-06-2017 [facility] (67414) Comment: Performed By: #### HEMDF, AP TT, PT, CMP3, BNP3, DDI, TSH4, LIPD2, TROPN ####[address] [address] Low Density Lipoprotein 76 <100 mg/dL Normal 2016 [facility] (03832) Comment: Performed By: #### HEMDF, AP TT, PT, CMP3, BNP3, DDI, TSH4, LIPD2, TROPN ####[address] [address] Triglyceride 180 <150 mg/dL Abnormal 02-06-2017 [facility] (37714) Comment: Performed By: #### HEMDF, AP TT, PT, CMP3, BNP3, DDI, TSH4, LIPD2, TROPN ####[address] [address] Cholesterol 162 < 200 mg/dL Normal 02-06-2017 [facility] (45015) Comment: Performed By: #### HEMDF, AP TT, PT, CMP3, BNP3, DDI, TSH4, LIPD2, TROPN ####[address] [address] hemogram w/ autodiff on 2017-02-06 Abs Baso Cnt 0.0 0.0-0.2 10*3/uL Normal 02-06-2017 [facility] (91425) Comment: Performed By: #### HEMDF, AP TT, PT, CMP3, BNP3, DDI, TSH4, LIPD2, TROPN ####[address] [address] Basophils/100 WBC Auto (Bld) 0.5 % Normal 0 02-06-2017 [facility] (69660) Comment: Performed By: #### HEMDF, AP TT, PT, CMP3, BNP3, DDI, TSH4, LIPD2, TROPN ####[place] [address] [place] [address] Eosinophils 0.1 0.0-0.5 10*3/uL Normal 02-06-2017 [facility] (85628) Comment: Performed By: #### HEMDF, AP TT, PT, CMP3, BNP3, DDI, TSH4, LIPD2, TROPN ####[address] [address] Eosinophils/100 leukocytes 2.1 % Normal [facility] (71150) Comment: Performed By: #### HEMDF, AP TT, PT, CMP3, BNP3, DDI, TSH4, LIPD2, TROPN ####[address] [address] Erythrocyte distribution 13.6 11.5-14.5 % Normal 02-06 [facility] width Auto Ratio (RBC) (56856) Comment: Performed By: #### HEMDF, AP TT, PT, CMP3, BNP3, DDI, TSH4, LIPD2, TROPN ####[address] [address] Erythrocytes (RBC) 3.92 3.80-5.20 10*6/uL Normal 02-06-2017 [facility] (19590) Comment: Performed By: #### HEMDF, AP TT, PT, CMP3, BNP3, DDI, TSH4, LIPD2, TROPN ####[address] [address] Granulocytes/100 WBC (Bld) 66.7 % Normal [facility] (96103) Comment: Performed By: #### HEMDF, AP TT, PT, CMP3, BNP3, DDI, TSH4, LIPD2, TROPN ####[place] [address] Hematocrit (HCT) 35.7 35.0-47.0 % Normal 02-06-2017 [facility] (14904) Comment: Performed By: #### HEMDF, AP TT, PT, CMP3, BNP3, DDI, TSH4, LIPD2, TROPN ####[address] [address] Hemoglobin mass conc 12.1 11.7-16.0 g/dL Normal 7 [facility] (Bld) (18649) Comment: Performed By: #### HEMDF, AP TT, PT, CMP3, BNP3, DDI, TSH4, LIPD2, TROPN ####[place] [address] Lymphocytes 1.7 1.0-4.3 10*3/uL Normal 02-06-2017 [facility] (31513) Comment: Performed By: #### HEMDF, AP TT, PT, CMP3, BNP3, DDI, TSH4, LIPD2, TROPN ####[address] [address] Lymphocytes/100 leukocytes 24.5 % Normal [facility] (01916) Comment: Performed By: #### HEMDF, AP TT, PT, CMP3, BNP3, DDI, TSH4, LIPD2, TROPN ####[address] [address] MCH 30.7 26.0-34.0 pg Normal 02-06-2017 [facility] (47724) Comment: Performed By: #### HEMDF, AP TT, PT, CMP3, BNP3, DDI, TSH4, LIPD2, TROPN ####[place] [address] MCHC mass conc (RBC) 33.8 32.0-36.0 % Normal 7 [facility] (01194) Comment: Performed By: #### HEMDF, AP TT, PT, CMP3, BNP3, DDI, TSH4, LIPD2, TROPN ####[address] [address] MCV 91.0 79.0-98.0 fL Normal 02-06-2017 [facility] (82923) Comment: Performed By: #### HEMDF, AP TT, PT, CMP3, BNP3, DDI, TSH4, LIPD2, TROPN ####[address] [address] Monocytes 0.4 0.0-0.8 10*3/uL Normal 02-06-2017 [facility] (54693) Comment: Performed By: #### HEMDF, AP TT, PT, CMP3, BNP3, DDI, TSH4, LIPD2, TROPN ####[address] [address] Monocytes/100 leukocytes 6.2 % Normal 02-06 [facility] (28530) Comment: Performed By: #### HEMDF, AP TT, PT, CMP3, BNP3, DDI, TSH4, LIPD2, TROPN ####[address] [address] Neutrophils 4.7 1.8-7.0 10*3/uL Normal 02-06-2017 [facility] (90145) Comment: Performed By: #### HEMDF, AP TT, PT, CMP3, BNP3, DDI, TSH4, LIPD2, TROPN ####[address] [address] Platelet mean volume (PMV) 9.3 7.4-10.4 fL Normal [facility] (38536) Comment: Performed By: #### HEMDF, AP TT, PT, CMP3, BNP3, DDI, TSH4, LIPD2, TROPN ####[address] [place] [address] Platelets 169 140-440 10*3/uL Normal 02-06-2017 [facility] (32072) Comment: Performed By: #### HEMDF, AP TT, PT, CMP3, BNP3, DDI, TSH4, LIPD2, TROPN ####[address] [address] WBC (Leukocytes) 7.0 3.6-10.7 10*3/uL Normal 02-06-2017 [facility] (77894) Comment: Performed By: #### HEMDF, AP TT, PT, CMP3, BNP3, DDI, TSH4, LIPD2, TROPN ####[address] [address] glucose,bedside on 2017-02-06 Glucose mass conc 216 70-100 mg/dL High 02-06-2017 [facility] (95740) Comment: Result Comment: Test perform ed by glucose meter. Results may be 10%-15% lowerthan serum/plasma value s. (CLIA ID [id number]) Performed By: #### HEMDF, PT /AP, CMP3, TSH4, B12, BNP3, RPR ####[address] [address] Glucose mass conc 157 70-100 mg/dL High 02-06-2017 [facility] (79014) Comment: Result Comment: Test perform ed by glucose meter. Results may be 10%-15% lowerthan serum/plasma value s. (CLIA ID [id number]) Performed By: #### HEMDF, PT /AP, CMP3, TSH4, B12, BNP3, RPR ####[address] [address] Glucose mass conc 111 70-100 mg/dL High 02-06-2017 [facility] (31412) Comment: Result Comment: Test perform ed by glucose meter. Results may be 10%-15% lowerthan serum/plasma value s. (CLIA ID [id number]) Performed By: #### BGLU #### [address] [place] [address] Glucose mass conc 121 70-100 mg/dL High 02-06-2017 [facility] (98288) Comment: Result Comment: Test perform ed by glucose meter. Results may be 10%-15% lowerthan serum/plasma value s. (CLIA ID [id number]) Performed By: #### BGLU #### [place] [address] [place] [address] d-dimer, innovance on 2017-02-06 D-Dimer, Innovance 3.44 0.17-0.59 ug{FEU}/mL High 02-06-2017 [facility] [employer] [facility] (04555) Comment: Result Comment: Innovance D- Dimer values of <0.50 mg/L FEU can be used incombination with a pre-braxton t probability model (e.g. Well's)to exclude pulmonary embolism (PE) dise ase, as well as alyssa in the diagnosis of deep vein thrombosis (DVT). Performed By: #### HEMDF, AP TT, PT, CMP3, BNP3, DDI, TSH4, LIPD2, TROPN ####[place] [address] [place] [address] cta chest w/ + w/o contrast on 2017-02-06 CTA Chest w/ + w/o Patient Name: Lucien RESENDIZ 02-06-2017 [facility] ([id number]) CT Exam Date/Time 02/06/2017 04:32:28 EDT Exam CTA Chest w/ + w/o Contrast Ordering Physician JENNY TSANG [place] Accession Number [id number] CPT4 Codes 20498 (), Q9967 () Reason For Exam DYSPNEA, [...] Alkaline phosphatase (ALP) 80 45-117 U/L Normal [facility] (71990) Comment: Performed By: #### HEMDF, AP TT, PT, CMP3, BNP3, DDI, TSH4, LIPD2, TROPN ####[address] [address] Anion gap 7 mmol/L Normal 02-06-2017 [facility] (32662) Comment: Performed By: #### HEMDF, AP TT, PT, CMP3, BNP3, DDI, TSH4, LIPD2, TROPN ####[address] [address] Bilirubin (total) 0.4 0.2-1.0 mg/dL Normal 02-06-2017 [facility] (39425) Comment: Performed By: #### HEMDF, AP TT, PT, CMP3, BNP3, DDI, TSH4, LIPD2, TROPN ####[address] [address] Protein 7.3 6.4-8.2 g/dL Normal 02-06-2017 [facility] (84009) Comment: Performed By: #### HEMDF, AP TT, PT, CMP3, BNP3, DDI, TSH4, LIPD2, TROPN ####[place] [address] Alanine aminotransferase (ALT) 31 12-78 U/L Normal 02-06-2017 [facility] (66347) Comment: Performed By: #### HEMDF, AP TT, PT, CMP3, BNP3, DDI, TSH4, LIPD2, TROPN ####[place] [address] Aspartate aminotransferase (AST) 14 15-37 U/L Low 02-06-2017 [facility] (79899) Comment: Performed By: #### HEMDF, AP TT, PT, CMP3, BNP3, DDI, TSH4, LIPD2, TROPN ####[place] [address] Creatinine 1.25 0.55-1.40 mg/dL Normal 02-06-2017 [facility] (93452) Comment: Performed By: #### HEMDF, AP TT, PT, CMP3, BNP3, DDI, TSH4, LIPD2, TROPN ####[place] [address] eGFR (black) 50.8 >60 mL/min Normal 02-06-2017 [facility] (11314) Comment: Performed By: #### HEMDF, AP TT, PT, CMP3, BNP3, DDI, TSH4, LIPD2, TROPN ####[place] [address] eGFR (non-black) 42.0 >60 mL/min Normal 02-06-2017 [facility] (40544) Comment: Result Comment: Source- MDRD equation with creatinine calibration to IDMS(NKDEP)eGFR not recommen ded for drug dose adjustment Performed By: #### HEMDF, AP TT, PT, CMP3, BNP3, DDI, TSH4, LIPD2, TROPN ####[address] [place] [address] Albumin 3.2 3.4-5.0 g/dL Low 02-06-2017 [facility] (80466) Comment: Performed By: #### HEMDF, AP TT, PT, CMP3, BNP3, DDI, TSH4, LIPD2, TROPN ####[address] [place] [address] Urea nitrogen 14 7-25 mg/dL Normal 02-06-2017 [facility] (80939) Comment: Performed By: #### HEMDF, AP TT, PT, CMP3, BNP3, DDI, TSH4, LIPD2, TROPN ####[place] [address] Calcium 8.6 8.2-10.1 mg/dL Normal 02-06-2017 [facility] (02324) Comment: Performed By: #### HEMDF, AP TT, PT, CMP3, BNP3, DDI, TSH4, LIPD2, TROPN ####[place] [address] CO2 24 21-32 mmol/L Normal 02-06-2017 [facility] (93259) Comment: Performed By: #### HEMDF, AP TT, PT, CMP3, BNP3, DDI, TSH4, LIPD2, TROPN ####[place] [address] Glucose mass conc 58 70-100 mg/dL Low 02-06-2017 [facility] (60966) Comment: Performed By: #### HEMDF, AP TT, PT, CMP3, BNP3, DDI, TSH4, LIPD2, TROPN ####[place] [address] Chloride 109 98-109 mmol/L Normal 02-06-2017 [facility] (85774) Comment: Performed By: #### HEMDF, AP TT, PT, CMP3, BNP3, DDI, TSH4, LIPD2, TROPN ####[address] [place] [address] Potassium molar conc 3.3 3.5-5.1 mmol/L Low 7 [facility] (11318) Comment: Performed By: #### HEMDF, AP TT, PT, CMP3, BNP3, DDI, TSH4, LIPD2, TROPN ####[address] [address] Sodium 140 135-145 mmol/L Normal 02-06-2017 [facility] (33706) Comment: Performed By: #### HEMDF, AP TT, PT, CMP3, BNP3, DDI, TSH4, LIPD2, TROPN ####[address] [address] basic metabolic panel on 2017-02-06 Anion gap 8 mmol/L Normal 02-06-2017 [facility] (16308) Comment: Performed By: #### BMP3 #### [place] [address] Creatinine 1.23 0.55-1.40 mg/dL Normal 02-06-2017 [facility] (82700) Comment: Performed By: #### BMP3 #### [place] [address] eGFR (black) 51.8 >60 mL/min Normal 02-06-2017 [facility] (39300) Comment: Performed By: #### BMP3 #### [address] [address] eGFR (non-black) 42.7 >60 mL/min Normal 02-06-2017 [facility] (93690) Comment: Result Comment: Source- MDRD equation with creatinine calibration to IDMS(NKDEP)eGFR not recommen ded for drug dose adjustment Performed By: #### BMP3 #### [address] [place] [id number] CO2 27 21-32 mmol/L Normal 02-06-2017 [facility] (28964) Comment: Performed By: #### BMP3 #### [address] [place] [address] Glucose mass conc 109 70-100 mg/dL High 02-06-2017 [facility] (80695) Comment: Performed By: #### BMP3 #### [address] [address] Urea nitrogen 14 7-25 mg/dL Normal 02-06-2017 [facility] (07557) Comment: Performed By: #### BMP3 #### [address] [address] Calcium 8.6 8.2-10.1 mg/dL Normal 02-06-2017 [facility] (16732) Comment: Performed By: #### BMP3 #### [address] [address] Chloride 107 98-109 mmol/L Normal 02-06-2017 [facility] (77926) Comment: Performed By: #### BMP3 #### [address] [address] Potassium molar conc 3.7 3.5-5.1 mmol/L Normal 7 [facility] (20257) Comment: Performed By: #### BMP3 #### [address] [address] Sodium 142 135-145 mmol/L Normal 02-06-2017 [facility] (70200) Comment: Performed By: #### BMP3 #### [address] [address] aptt on 2017-02-06 aPTT 22.0 20.0-30.5 s Normal 02-06-2017 [facility] (33308) Comment: Result Comment: NOTE: The th erapeutic time for Heparin anticoagulation,based on Xa activity inhibition, i s an APTT of 46-80seconds. Performed By: #### HEMDF, AP TT, PT, CMP3, BNP3, DDI, TSH4, LIPD2, TROPN ####[address] [address] hemogram on 2017-01 Erythrocyte distribution 14.0 11.5-14.5 % Normal 01-24 [facility] width Auto Ratio (RBC) (68684) Comment: Performed By: #### BMP3, HEM OG ####[address] [place] [address] Erythrocytes (RBC) 3.52 3.80-5.20 10*6/uL Low 01-24-2017 [facility] (47508) Comment: Performed By: #### BMP3, HEM OG ####[address] [place] [address] Hematocrit (HCT) 31.3 35.0-47.0 % Low 01-24-2017 [facility] (82704) Comment: Performed By: #### BMP3, HEM OG ####[place] [address] Hemoglobin mass conc (Bld) 10.7 11.7-16.0 g/dL Low [facility] (16372) Comment: Performed By: #### BMP3, HEM OG ####[address] [place] [address] MCH 30.3 26.0-34.0 pg Normal 01-24-2017 [facility] (84695) Comment: Performed By: #### BMP3, HEM OG ####[address] [place] [address] MCHC mass conc (RBC) 34.1 32.0-36.0 % Normal 7 [facility] (45292) Comment: Performed By: #### BMP3, HEM OG ####[address] [place] [address] MCV 89.0 79.0-98.0 fL Normal 01-24-2017 [facility] (83328) Comment: Performed By: #### BMP3, HEM OG ####[address] [place] [address] Platelet mean volume (PMV) 9.8 7.4-10.4 fL Normal [facility] (87726) Comment: Performed By: #### BMP3, HEM OG ####[place] [address] [place] [address] Platelets 133 140-440 10*3/uL Low 01-24-2017 [facility] (47223) Comment: Performed By: #### BMP3, HEM OG ####[place] [address] [place] [address] WBC (Leukocytes) 4.0 3.6-10.7 10*3/uL Normal 01-24-2017 [facility] (43395) Comment: Performed By: #### BMP3, HEM OG ####[place] [place] [address] glucose,bedside on 2017-01-24 Glucose mass conc 399 70-100 mg/dL High 01-24-2017 [facility] (03268) Comment: Result Comment: Test perform ed by glucose meter. Results may be 10%-15% lowerthan serum/plasma value s. (CLIA ID [id number]) Performed By: #### BGLU #### [place] [place] [address] Glucose mass conc 197 70-100 mg/dL High 01-24-2017 [facility] (37838) Comment: Result Comment: Test perform ed by glucose meter. Results may be 10%-15% lowerthan serum/plasma value s. (CLIA ID [id number]) Performed By: #### BGLU #### [place] [address] [place] [address] Glucose mass conc 263 70-100 mg/dL High 01-24-2017 [facility] (88406) Comment: Result Comment: Test perform ed by glucose meter. Results may be 10%-15% lowerthan serum/plasma value s. (CLIA ID [id number]) Performed By: #### BGLU #### [place] [address] [place] [address] Glucose mass conc 249 70-100 mg/dL High 01-24-2017 [facility] (97991) Comment: Result Comment: Test perform ed by glucose meter. Results may be 10%-15% lowerthan serum/plasma value s. (CLIA ID [id number]) Performed By: #### BGLU #### [address] [place] [address] basic metabolic panel on 2017-01-24 Anion gap 9 mmol/L Normal 01-24-2017 [facility] (46841) Comment: Performed By: #### BMP3, HEM OG ####[address] [place] [address] Creatinine 1.13 0.55-1.40 mg/dL Normal 01-24-2017 [facility] (62808) Comment: Performed By: #### BMP3, HEM OG ####[address] [place] [address] eGFR (black) 57.1 >60 mL/min Normal 01-24-2017 [facility] (98938) Comment: Performed By: #### BMP3, HEM OG ####[address] [place] [address] eGFR (non-black) 47.1 >60 mL/min Normal 01-24-2017 [facility] (15899) Comment: Result Comment: Source- MDRD equation with creatinine calibration to IDMS(NKDEP)eGFR not recommen ded for drug dose adjustment Performed By: #### BMP3, HEM OG ####[address] [place] [address] Glucose mass conc 223 70-100 mg/dL High 01-24-2017 [facility] (53906) Comment: Performed By: #### BMP3, HEM OG ####[address] [place] [address] Urea nitrogen 24 7-25 mg/dL Normal 01-24-2017 [facility] (00189) Comment: Performed By: #### BMP3, HEM OG ####[address] [place] [address] Calcium 8.1 8.2-10.1 mg/dL Low 01-24-2017 [facility] (52944) Comment: Performed By: #### BMP3, HEM OG ####[facility] [place] [address] CO2 21 21-32 mmol/L Normal 01-24-2017 [facility] (96360) Comment: Performed By: #### BMP3, HEM OG ####[address] [place] [address] Chloride 110 98-109 mmol/L High 01-24-2017 [facility] (15464) Comment: Performed By: #### BMP3, HEM OG ####[place] [address] [place] [address] Potassium molar conc 4.3 3.5-5.1 mmol/L Normal 7 [facility] (92636) Comment: Performed By: #### BMP3, HEM OG ####[address] [place] [address] Sodium 140 135-145 mmol/L Normal 01-24-2017 [facility] (52469) Comment: Performed By: #### BMP3, HEM OG ####[address] [place] [address] rpr, qual on 01-23 RPR, Qual NONREACTIVE Non-Reactive Normal 01-23-[address] [facility] (78230) Comment: Performed By: #### UAFRAN, UA NIGEL ####[address] [place] [address] hiv 1,2 ab; p24 ag on 2017-01-23 HIV 1,2 Ab; p24 Ag NONREACTIVE Nonreactive Normal 017 [facility] (78755) Comment: Result Comment: Results obta ined using [...] charge. Performed By: #### UAMAC, UA NIGEL ####[address] [place] [address] hemogram on 2017-01 Erythrocyte distribution 14.3 11.5-14.5 % Normal 01-23 [facility] width Auto Ratio (RBC) ([id number]) Comment: Performed By: #### UAMAC, UA NIGEL ####[address] [place] [address] Erythrocytes (RBC) 3.77 3.80-5.20 10*6/uL Low 01-23-2017 [facility] ([id number]) Comment: Performed By: #### UAMAC, UA NIGEL ####[address] [place] [address] Hematocrit (HCT) 33.6 35.0-47.0 % Low 01-23-2017 [facility] ([id number]) Comment: Performed By: #### UAMAC, UA NIGEL ####[address] [place] [address] Hemoglobin mass conc (Bld) 11.4 11.7-16.0 g/dL Low [facility] ([id number]) Comment: Performed By: #### UAMAC, UA NIGEL ####[address] [place] [address] MCH 30.3 26.0-34.0 pg Normal 01-23-2017 [facility] ([id number]) Comment: Performed By: #### UAMAC, UA NIGEL ####[address] [place] [address] MCHC mass conc (RBC) 34.0 32.0-36.0 % Normal 7 [facility] ([id number]) Comment: Performed By: #### UAMAC, UA NIGEL ####[address] [place] [address] MCV 89.2 79.0-98.0 fL Normal 01-23-2017 [facility] ([id number]) Comment: Performed By: #### UAMAC, UA NIGEL ####[address] [place] [address] Platelet mean volume (PMV) 10.6 7.4-10.4 fL High [facility] ([id number]) Comment: Performed By: #### UAMAC, UA NIGEL ####[address] [place] [address] Platelets 140 140-440 10*3/uL Normal 01-23-2017 [facility] ([id number]) Comment: Performed By: #### UAMAC, UA NIGEL ####[address] [place] [address] WBC (Leukocytes) 5.2 3.6-10.7 10*3/uL Normal 01-23-2017 [facility] (22042) Comment: Performed By: #### UAMAC, UA NIGEL ####[address] [place] [address] glucose,bedside on 2017-01-23 Glucose mass conc 104 70-100 mg/dL High 01-23-2017 [facility] (27860) Comment: Result Comment: Test perform ed by glucose meter. Results may be 10%-15% lowerthan serum/plasma value s. (CLIA ID [id number]) Performed By: #### BGLU #### [address] [place] [address] Glucose mass conc 98 70-100 mg/dL Normal 01-23-2017 [facility] (66879) Comment: Result Comment: Test perform ed by glucose meter. Results may be 10%-15% lowerthan serum/plasma value s. (CLIA ID [id number]) Performed By: #### UAMAC, UA NIGEL ####[address] [place] [address] Glucose mass conc 90 70-100 mg/dL Normal 01-23-2017 [facility] (41657) Comment: Result Comment: Test perform ed by glucose meter. Results may be 10%-15% lowerthan serum/plasma value s. (CLIA ID [id number]) Performed By: #### UAMAC, UA NIGEL ####[address] [place] [address] Glucose mass conc 98 70-100 mg/dL Normal 01-23-2017 [facility] (03305) Comment: Result Comment: Test perform ed by glucose meter. Results may be 10%-15% lowerthan serum/plasma value s. (CLIA ID [id number]) Performed By: #### UAMAC, UA NIGEL ####[address] [place] [address] basic metabolic panel on 2017-01-23 Anion gap 9 mmol/L Normal 01-23-2017 [facility] (12639) Comment: Performed By: #### UAMAC, UA NIGEL ####[address] [place] [address] Creatinine 1.13 0.55-1.40 mg/dL Normal 01-23-2017 [facility] (59847) Comment: Performed By: #### UAMAC, UA NIGEL ####[address] [place] [address] eGFR (black) 57.1 >60 mL/min Normal 01-23-2017 [facility] (61871) Comment: Performed By: #### UAMAC, UA NIGEL ####[address] [place] [address] eGFR (non-black) 47.1 >60 mL/min Normal 01-23-2017 [facility] (03920) Comment: Result Comment: Source- MDRD equation with creatinine calibration to IDMS(NKDEP)eGFR not recommen ded for drug dose adjustment Performed By: #### UAMAC, UA NIGEL ####[address] [place] [address] Calcium 8.3 8.2-10.1 mg/dL Normal 01-23-2017 [facility] (99654) Comment: Performed By: #### UAMAC, UA NIGEL ####[address] [place] [address] CO2 21 21-32 mmol/L Normal 01-23-2017 [facility] (61742) Comment: Performed By: #### UAMAC, UA NIGEL ####[address] [place] [address] Glucose mass conc 93 70-100 mg/dL Normal 01-23-2017 [facility] (65870) Comment: Performed By: #### UAMAC, UA NIGEL ####[address] [place] [address] Urea nitrogen 24 7-25 mg/dL Normal 01-23-2017 [facility] (68260) Comment: Performed By: #### UAMAC, UA NIGEL ####[address] [place] [address] Chloride 113 98-109 mmol/L High 01-23-2017 [facility] (04981) Comment: Performed By: #### UAMAC, UA NIGEL ####[address] [place] [address] Potassium molar conc 3.8 3.5-5.1 mmol/L Normal 7 [facility] (77928) Comment: Performed By: #### UAMAC, UA NIGEL ####[address] [place] [address] Sodium 143 135-145 mmol/L Normal 01-23-2017 [facility] (82585) Comment: Performed By: #### UAMAC, UA NIGEL ####[address] [place] [address] vitamin b12 on 2016 Cobalamins (Vitamin B12) 425 193-986 pg/mL Normal 01-22 [facility] (35367) Comment: Performed By: #### HEMDF, PT /AP, CMP3, TSH4, B12, BNP3, RPR ####[address] [place] [address] urinalysis,microscopic on 2017-01-22 Urine, bacteria in present Negative Normal 01-22-2017 [facility] sediment (89909) Comment: Result Comment: unable to qu antitate due to large amount of wbc's Performed By: #### UAMAC, UA NIGEL ####[address] [place] [address] Urine, epithelial cells see wbc comment 3-5 Normal 01-22-2017 [facility] in sediment (16679) Comment: Performed By: #### UAMAC, UA INGEL ####[address] [place] [address] Urine, erythrocytes in see wbc comment 0-2 Normal 0 01-22-2017 [facility] sediment by area (00 000) Comment: Performed By: #### UAMAC, UA NIGEL ####[address] [place] [address] Urine, leukocytes in see below 0-5 Normal 7 [facility] sedmiment (06135) Comment: Result Comment: Grossly load ed, unable to identify any other formed elements. Performed By: #### UAMAC, UA NIGEL ####[address] [place] [address] urinalysis,macro on 2017-01-22 Bilirubin (direct) NEG Negative mg/dL Normal 01-22-2017 [facility] (87193) Comment: Performed By: #### UAMAC, UA NIGEL ####[address] [place] [address] Ketone,Urine NEG Negative Normal 01-22-2017 [facility] (25651) Comment: Performed By: #### UAMAC, UA NIGEL ####[address] [place] [address] Occult Blood,Ur 250 Negative {RBC}/uL Normal 01-22-2017 [facility] (99206) Comment: Performed By: #### UAMAC, UA NIGEL ####[address] [place] [address] Specific [place],Urine 1.025 1.005-1.030 Normal 01-22 [facility] (16816) Comment: Performed By: #### UAMAC, UA NIGEL ####[address] [place] [address] Total Protein,Urine 150 Negative mg/dL Normal 01-22-2017 [facility] (09768) Comment: Performed By: #### UAMAC, UA NIGEL ####[address] [place] [address] Urine, appearance cloudy Clear Normal 01-22-2017 [facility] (85153) Comment: Performed By: #### UAMAC, UA NIGEL ####[address] [place] [address] Urine, color yellow Lt. Yellow Normal 01-22-2017 [facility] (14159) Comment: Performed By: #### UAMAC, UA NIGEL ####[address] [place] [address] Urine, glucose presence NORM Negative Normal 2016 [facility] (57290) Comment: Performed By: #### UAMAC, UA NIGEL ####[address] [place] [address] Urine, nitrite presence NEG Negative Normal 2016 [facility] (15620) Comment: Performed By: #### UAMAC, UA NIGEL ####[address] [place] [address] Urine, pH 5.0 5.0-8.0 [pH] Normal 01-22-2017 [facility] (61271) Comment: Performed By: #### UAMAC, UA NIGEL ####[address] [address] Urine, urobilinogen NORM 0-1 Normal 01-22-2017 [facility] (44192) Comment: Performed By: #### UAMAC, UA NIGEL ####[place] [address] WBC (Leukocytes) 2+ Negative Normal 01-22-2017 [facility] (60510) Comment: Performed By: #### UAMAC, UA NIGEL ####[place] [address] thyroid stim. hormone on 2017-01-22 Thyroid Stim. Hormone 1.470 0.358-3.740 uU/mL Normal 2016 [facility] (82644) Comment: Performed By: #### HEMDF, PT /AP, CMP3, TSH4, B12, BNP3, RPR ####[address] [address] protime on aPTT 24.2 20.0-30.5 s Normal 01-22-2017 [facility] (58511) Comment: Result Comment: NOTE: The th erapeutic time for Heparin anticoagulation,based on Xa activity inhibition, i s an APTT of 46-80seconds. Performed By: #### HEMDF, PT /AP, CMP3, TSH4, B12, BNP3, RPR ####[address] [address] INR Coag RelTime (PPP) 1.0 0.9-1.1 {INR} Normal 017 [facility] (48704) Comment: Result Comment: Recommended Anticoagulant Therapy:SEE BELOW----- [...] PT /AP, CMP3, TSH4, B12, BNP3, RPR ####[address] [address] Prothrombin time (PT) Coag 10.1 9.0-12.0 s Normal [facility] time (PPP) (43379) Comment: Result Comment: . Performed By: #### HEMDF, PT /AP, CMP3, TSH4, B12, BNP3, RPR ####[address] [address] nt pro bnp on 01-22 BNP 352 0-125 pg/mL High 01-22-2017 [facility] (44866) Comment: Performed By: #### HEMDF, PT /AP, CMP3, TSH4, B12, BNP3, RPR ####[address] [address] hemogram w/ autodiff on 2017-01-22 Abs Baso Cnt 0.0 0.0-0.2 10*3/uL Normal 01-22-2017 [facility] (30894) Comment: Performed By: #### HEMDF, PT /AP, CMP3, TSH4, B12, BNP3, RPR ####[place] [address] [place] [address] Basophils/100 WBC Auto (Bld) 0.5 % Normal 0 01-22-2017 [facility] (91500) Comment: Performed By: #### HEMDF, PT /AP, CMP3, TSH4, B12, BNP3, RPR ####[address] [facility] [place] [address] Eosinophils 0.2 0.0-0.5 10*3/uL Normal 01-22-2017 [facility] (44460) Comment: Performed By: #### HEMDF, PT /AP, CMP3, TSH4, B12, BNP3, RPR ####[address] [place] [facility] [place] [address] Eosinophils/100 leukocytes 5.2 % Normal [facility] (33699) Comment: Performed By: #### HEMDF, PT /AP, CMP3, TSH4, B12, BNP3, RPR ####[address] [place] [address] Granulocytes/100 WBC (Bld) 61.8 % Normal [facility] (96477) Comment: Performed By: #### HEMDF, PT /AP, CMP3, TSH4, B12, BNP3, RPR ####[address] [place] [address] Lymphocytes 1.3 1.0-4.3 10*3/uL Normal 01-22-2017 [facility] (58518) Comment: Performed By: #### HEMDF, PT /AP, CMP3, TSH4, B12, BNP3, RPR ####[address] [place] [address] Lymphocytes/100 leukocytes 28.3 % Normal [facility] (98669) Comment: Performed By: #### HEMDF, PT /AP, CMP3, TSH4, B12, BNP3, RPR ####[address] [place] [address] Monocytes 0.2 0.0-0.8 10*3/uL Normal 01-22-2017 [facility] (60061) Comment: Performed By: #### HEMDF, PT /AP, CMP3, TSH4, B12, BNP3, RPR ####[address] [place] [address] Monocytes/100 leukocytes 4.2 % Normal 01-22 [facility] (52751) Comment: Performed By: #### HEMDF, PT /AP, CMP3, TSH4, B12, BNP3, RPR ####[address] [place] [address] Neutrophils 2.9 1.8-7.0 10*3/uL Normal 01-22-2017 [facility] (41354) Comment: Performed By: #### HEMDF, PT /AP, CMP3, TSH4, B12, BNP3, RPR ####[address] [address] Erythrocyte distribution 13.8 11.5-14.5 % Normal 01-22 [facility] width Auto Ratio (RBC) (23344) Comment: Performed By: #### HEMDF, PT /AP, CMP3, TSH4, B12, BNP3, RPR ####[address] [address] Erythrocytes (RBC) 3.63 3.80-5.20 10*6/uL Low 01-22-2017 [facility] (93376) Comment: Performed By: #### HEMDF, PT /AP, CMP3, TSH4, B12, BNP3, RPR ####[address] [place] [address] Hematocrit (HCT) 32.5 35.0-47.0 % Low 01-22-2017 [facility] (88377) Comment: Performed By: #### HEMDF, PT /AP, CMP3, TSH4, B12, BNP3, RPR ####[address] [address] Hemoglobin mass conc (Bld) 11.2 11.7-16.0 g/dL Low [facility] (88634) Comment: Performed By: #### HEMDF, PT /AP, CMP3, TSH4, B12, BNP3, RPR ####[address] [place] [address] MCH 30.8 26.0-34.0 pg Normal 01-22-2017 [facility] (42152) Comment: Performed By: #### HEMDF, PT /AP, CMP3, TSH4, B12, BNP3, RPR ####[address] [address] MCHC mass conc (RBC) 34.4 32.0-36.0 % Normal 7 [facility] (58842) Comment: Performed By: #### HEMDF, PT /AP, CMP3, TSH4, B12, BNP3, RPR ####[address] [address] MCV 89.6 79.0-98.0 fL Normal 01-22-2017 [facility] (05858) Comment: Performed By: #### HEMDF, PT /AP, CMP3, TSH4, B12, BNP3, RPR ####[address] [address] Platelet mean volume (PMV) 10.1 7.4-10.4 fL Normal [facility] (03316) Comment: Performed By: #### HEMDF, PT /AP, CMP3, TSH4, B12, BNP3, RPR ####[address] [address] Platelets 143 140-440 10*3/uL Normal 01-22-2017 [facility] (96230) Comment: Performed By: #### HEMDF, PT /AP, CMP3, TSH4, B12, BNP3, RPR ####[address] [address] WBC (Leukocytes) 4.6 3.6-10.7 10*3/uL Normal 01-22-2017 [facility] (93991) Comment: Performed By: #### HEMDF, PT /AP, CMP3, TSH4, B12, BNP3, RPR ####[address] [place] [address] glucose,bedside on 2017-01-22 Glucose mass conc 136 70-100 mg/dL High 01-22-2017 [facility] (29316) Comment: Result Comment: Test perform ed by glucose meter. Results may be 10%-15% lowerthan serum/plasma value s. (CLIA ID [id number]) Performed By: #### UAMAC, UA NIGEL ####[address] [place] [address] Glucose mass conc 153 70-100 mg/dL High 01-22-2017 [facility] (18784) Comment: Result Comment: Test perform ed by glucose meter. Results may be 10%-15% lowerthan serum/plasma value s. (CLIA ID [id number]) Performed By: #### UAMAC, UA NIGEL ####[address] [place] [address] culture urine on 02-02-06 CULTURE Specimen Source Comment:Urine, clean catch Normal 01-22-2017 [facility] URINE [facility] Patient name: Desmond RESENDIZ MNguyenR.N.: [id number] : 1945 System Age: 71 Sex: F Ord. ([id number]) Physician: SANAM BARAHONA Location: [address] [place] [address] Copy to: SANAM BARAHONA Adm. Date: 01/22/17 MICROBIOLOGYORDER#: [id number] COLLECTED: 01/22/17 12:10SOURCE: Urine RECEIVED: 01/22/17 12:24 OE C O M M E N T S Specimen Source Comment:Urine, clean catchCULTURE URINE FINAL 01/23/17 15:00>100,000 CFU/ml Vicenta kefyr Comment: Performed By: #### UAMAC, UA NIGEL ####[address] [address] [address] head or brain w/o contrast on 2017-01-22 CT Head or Brain Patient Name: BABAK, Lucien 0 01-22-2017 [employer] w/o Contrast [facility] ([id number]) CT Exam Date/Time 01/22/2017 12:42:[address] Head or Brain w/o Contrast Ordering Physician MD BARAHONA JACOB A Accession Number [id number] CPT4 Codes 35762 () Reason For Exam Altered mental status [...] Abdomen/Pelvis w/o Patient Name: BABAK, Lucien 01-22-2017 [employer] Contrast [facility] (12423) CT Exam Date/Time 01/22/2017 12:44:[address] Abdomen/Pelvis (No PO, No IV) Ordering Physician HERMES GARNETT Accession Number [id number] CPT4 Codes 04858 (CT Abdomen/Pelvis (No PO, No IV)) Reason [...] Alkaline phosphatase (ALP) 77 45-117 U/L Normal [facility] (81995) Comment: Performed By: #### HEMDF, PT /AP, CMP3, TSH4, B12, BNP3, RPR ####[address] [address] Bilirubin (total) 0.6 0.2-1.0 mg/dL Normal 01-22-2017 [facility] (60768) Comment: Performed By: #### HEMDF, PT /AP, CMP3, TSH4, B12, BNP3, RPR ####[address] [address] Protein 7.0 6.4-8.2 g/dL Normal 01-22-2017 [facility] (50408) Comment: Performed By: #### HEMDF, PT /AP, CMP3, TSH4, B12, BNP3, RPR ####[address] [address] Alanine aminotransferase (ALT) 35 12-78 U/L Normal 01-22-2017 [facility] (28923) Comment: Performed By: #### HEMDF, PT /AP, CMP3, TSH4, B12, BNP3, RPR ####[address] [place] [address] Anion gap 9 mmol/L Normal 01-22-2017 [facility] (52906) Comment: Performed By: #### HEMDF, PT /AP, CMP3, TSH4, B12, BNP3, RPR ####[address] [place] [address] Aspartate aminotransferase (AST) 10 15-37 U/L Low 01-22-2017 [facility] (26800) Comment: Performed By: #### HEMDF, PT /AP, CMP3, TSH4, B12, BNP3, RPR ####[address] [address] Creatinine 1.19 0.55-1.40 mg/dL Normal 01-22-2017 [facility] (67227) Comment: Performed By: #### HEMDF, PT /AP, CMP3, TSH4, B12, BNP3, RPR ####[address] [address] eGFR (black) 53.8 >60 mL/min Normal 01-22-2017 [facility] (51109) Comment: Performed By: #### HEMDF, PT /AP, CMP3, TSH4, B12, BNP3, RPR ####[address] [address] eGFR (non-black) 44.4 >60 mL/min Normal 01-22-2017 [facility] (34615) Comment: Result Comment: Source- MDRD equation with creatinine calibration to IDMD(NKDEP)eGFR not recommen ded for drug dose adjustment Performed By: #### HEMDF, PT /AP, CMP3, TSH4, B12, BNP3, RPR ####[address] [address] Albumin 3.2 3.4-5.0 g/dL Low 01-22-2017 [facility] (92065) Comment: Performed By: #### HEMDF, PT /AP, CMP3, TSH4, B12, BNP3, RPR ####[place] [address] [place] [address] Urea nitrogen 24 7-25 mg/dL Normal 01-22-2017 [facility] (37188) Comment: Performed By: #### HEMDF, PT /AP, CMP3, TSH4, B12, BNP3, RPR ####[address] [place] [address] Calcium 8.7 8.2-10.1 mg/dL Normal 01-22-2017 [facility] (10138) Comment: Performed By: #### HEMDF, PT /AP, CMP3, TSH4, B12, BNP3, RPR ####[place] [address] [address] [place] [address] CO2 22 21-32 mmol/L Normal 01-22-2017 [facility] (79092) Comment: Performed By: #### HEMDF, PT /AP, CMP3, TSH4, B12, BNP3, RPR ####[place] [address] [address] [place] [address] Glucose mass conc 184 70-100 mg/dL High 01-22-2017 [facility] (91176) Comment: Performed By: #### HEMDF, PT /AP, CMP3, TSH4, B12, BNP3, RPR ####[place] [address] [place] [address] Chloride 112 98-109 mmol/L High 01-22-2017 [facility] (80854) Comment: Performed By: #### HEMDF, PT /AP, CMP3, TSH4, B12, BNP3, RPR ####[place] [address] [place] [address] Potassium molar conc 3.8 3.5-5.1 mmol/L Normal 7 [facility] (35274) Comment: Performed By: #### HEMDF, PT /AP, CMP3, TSH4, B12, BNP3, RPR ####[place] [address] [place] [address] Sodium 143 135-145 mmol/L Normal 01-22-2017 [facility] (77237) Comment: Performed By: #### HEMDF, PT /AP, CMP3, TSH4, B12, BNP3, RPR ####[address] [place] [address] Encounters Date Type Reason Provider Location 12-04-2017 - Ambulatory Left bundle-branch [facility] 12-05-2017 block, unspecified [facility] [place] [facility]IG[facility] ([id number]) [facility] 08-14-2017 - Ambulatory [facility] 08-14-[address] [facility] [address] ([id number]) 06-23-2017 Ambulatory [facility] (0 0000) 02-19-2017 Ambulatory Type 2 diabetes KEVIN PAGE [facility] mellitus with SANAM A JUN SANAM System ( [address]) unspecified A [facility] complications 02-18-2017 Ambulatory Major depressive SANAM A JUN SANAM [facility] disorder, single A [facility] ([address]) episode, unspecified 02-18-2017 Ambulatory Edema, unspecified Luke Hashiguchi [facility] SANAM A JUN SANAM System (0 0000) A [facility] 02-10-2017 [facility] System (0 0000) A [facility] 02-06-2017 Ambulatory Paroxysmal atrial [facility] JUN [facility] System (0 0000) A [facility] 01-28-2017 Ambulatory Vascular dementia KEVIN PAGE [facility] without behavioral SANAM A JUN SANAM Sys tem ([address]) disturbance A [facility] 01-23-2017 Ambulatory Encounter for fitting Hermes Andres SANAM S [facility] and adjustment of A JUN SANAM A System ( [address]) urinary device [facility] 01-22-2017 Ambulatory Calculus of ureter Tyrone MARION [facility] A JUN SANAM A System (57409 ) [facility] 08-06-2018 Patient encounter [facility] Facility :[place] [facility] 03-03-2018 Patient encounter [facility] Facility :[place] [facility] Payers Payer Name Policy Number Location TAJ ARELLANO DUAL ADVANTAGE [id number] [facility] MEDICARE ([id number]) [facility] ([id number]) [facility] [id number] [facility] ([id number]) [id number] [facility] ([id number]) [id number] [facility] ([id number]) [id number] [facility] (12531) The following information is from the original [...] BE BASED ON THE PRIMARY CLINICAL RECORDS. [facility] provides no warranty or guarantee of the accuracy or completeness of information in this document. UNRECOGNIZED CONTENT PROVIDED BELOW FOR UNRECOGNIZED SECTION INFORMATION SOURCE DATE CREATED AUTHOR AUTHOR'S ORGANIZATIO N 01/06/2018 [facility] CREATED AUTHOR AUTHOR'S ORGANIZATIO N 01/12/2018 [facility] DATE CREATED AUTHOR AUTHOR'S ORGANIZATIO N 01/13/2018 [facility] DATE CREATED AUTHOR AUTHOR'S ORGANIZATIO N 10/23/2018 [facility] DATE CREATED AUTHOR AUTHOR'S ORGANIZATIO N 02/23/2019 [facility]
== END 2019-12-16 16:15 | disposition skilled nursing facility (03) | DRG 690 ==
LOC: ED 21:48 → MS3 21:57
PROVIDERS: Admitting Provider Hospitalist; Emergency Provider Emergency Medicine; PCP Family Medicine; Visit Provider Internal Medicine
DX: N30.00 Acute cystitis without hematuria (principal); I50.32 Chronic diastolic (congestive) heart failure; R53.81 Other malaise; F03.90 Unspecified dementia, unspecified severity, without behavioral disturbance, psychotic disturbance, mood disturbance, and anxiety; I48.0 Paroxysmal atrial fibrillation; R29.6 Repeated falls; S30.0XXA Contusion of lower back and pelvis, initial encounter; W18.30XA Fall on same level, unspecified, initial encounter; Y93.89 Activity, other specified; Y92.129 Unspecified place in nursing home as the place of occurrence of the external cause; Y99.8 Other external cause status; N18.3 Chronic kidney disease, stage 3 (moderate); E11.22 Type 2 diabetes mellitus with diabetic chronic kidney disease; E78.5 Hyperlipidemia, unspecified; Z79.02 Long term (current) use of antithrombotics/antiplatelets; Z79.4 Long term (current) use of insulin; Z79.899 Other long term (current) drug therapy; E66.9 Obesity, unspecified; Z68.25 Body mass index [BMI] 25.0-25.9, adult; E03.9 Hypothyroidism, unspecified; Z87.440 Personal history of urinary (tract) infections; B96.20 Unspecified Escherichia coli [E. coli] as the cause of diseases classified elsewhere; S09.90XA Unspecified injury of head, initial encounter
CPT/HCPCS: 36415; 70450; 72100; 72125; 73521; 74177; 80048; 81001; 82962; 85025; 87086; 87088; 87186; 87635; 96361; 96374; 97162; 97166; 99251; 99285; G2023; J7030; P9612; Q9967; A4216; G0463; J2405; U0004

== ENCOUNTER 2019-12-16 16:53 | Inpatient (IN) | payer MEDICARE, MEDICAID, SELFPAY ==
[2019-12-15 22:46] VITALS: BMI 24.4
[2019-12-16 17:00] VITALS: RESP 16; BMI 32.3
[2019-12-16 17:10] VITALS: BP 136/65; PULSE 76; RESP 16; TEMP 36.5; O2SAT 94
[2019-12-16 17:25] LABS: Bedside Glucose 98 mg/dL (70-110)
[2019-12-16 17:49] VITALS: BMI 32.3
--- NOTE | 2019-12-16 18:03 | PCM.HP.STD ---
Problem List (1) Fall Status: Acute (2) Iron deficiency anemia Status: Chronic (3) Hypothyroidism Status: Chronic (4) Allergic rhinitis Status: Chronic (5) Overactive bladder Status: Chronic (6) Dizziness Status: Chronic (7) Nausea Status: Chronic (8) Hypokalemia Status: Chronic (9) Muscle spasm Status: Chronic (10) Atrial fibrillation Status: Chronic (11) Fecal impaction of colon Status: Acute (12) Lumbar spondylosis Status: Chronic (13) Diabetes mellitus Status: Chronic (14) Alzheimer disease Status: Chronic (15) Chronic kidney disease Status: Chronic (16) UTI (urinary tract infection) Status: Acute (17) Debility Status: Chronic (18) Chronic diastolic (congestive) heart failure Status: Chronic (19) Hyperlipidemia Status: Chronic History of Present Illness Date of Admission: 12/16/19 Chief Complaint: Here for rehabilitation, strengthening, prior to discharge to [facility]. 12/15/2019 The patient is a 74 year old Female with below past medical history presented to [facility] Emergency Department with fall. 12/15/2019 CT brain moderate atrophy, periventricular white matter ischemia change, negative acute intracranial bleed. 12/15/2019 X-ray pelvis, bilateral hips, negative fracture, large stool burden. 12/15/2019 X-ray lumbar spine, lumbar spondylosis, L5 on S1, worse than previous. Resident of [facility], fell. Seen in ED x 2, previous blood work, imaging okay. Fell again. UA consistent with urinary tract infection, Urine culture sent, Rocephin given. 12/15/2019 Admit to Hospital. Rocephin IV, Gentle IV fluids for urinary tract infection. PT/OT, evaluate and treat. 12/16/2019 COVID-19 NEGATIVE. Urine culture grew E. Coli, on Rocephin, transitioned to oral Keflex. PT/OT for falls, recommended fdc facility. 12/16/2019 Admit to TCU with debility, here for rehabilitation, strengthening, prior to discharge home to [facility]. Past Medical History Past Medical History (Chronic Problems): Chronic Problems (Last Updated 12/15/19 @ 22:[address] Romulo Perez MD) Debility (Chronic) Iron deficiency anemia (Chronic) Hypothyroidism (Chronic) Allergic rhinitis (Chronic) Overactive bladder (Chronic) Dizziness (Chronic) Nausea (Chronic) Hypokalemia (Chronic) Muscle spasm (Chronic) Atrial fibrillation (Chronic) Lumbar spondylosis (Chronic) Diabetes mellitus (Chronic) Alzheimer disease (Chronic) Chronic kidney disease (Chronic) Dementia (Chronic) Type 2 diabetes mellitus (Chronic) Vertigo (Chronic) Paroxysmal atrial fibrillation (Chronic) LBBB (left bundle branch block) (Chronic) Chronic diastolic (congestive) heart failure (Chronic) Hyperlipidemia (Chronic) CKD (chronic kidney disease), stage III (Chronic) Medical History: Medical History (Last Updated 12/15/19 @ 22:[address] Romulo Perez MD) Vertigo (Chronic) R42 Paroxysmal atrial fibrillation (Chronic) I48.0 LBBB (left bundle branch block) (Chronic) I44.7 Chronic diastolic (congestive) heart failure (Chronic) I50.32 Hyperlipidemia (Chronic) E78.5 CKD (chronic kidney disease), stage III (Chronic) N18.3 Dementia in other diseases classified elsewhere without behavioral disturbance F02.80 Diabetes type 2, controlled E11.9 Gout M10.9 Hypersomnia G47.10 Hypothyroidism E03.9 Obesity E66.9 Vitamin D deficiency E55.9 RONNY (obstructive sleep apnea) G47.33 Allergies colchicine Allergy (Severe, Verified 12/15/19 18:11) HIVES ALLERGY PILLS Adverse Reaction (Uncoded 12/15/19 18:11) Unknown Home Medications: Ambulatory Orders Medication Instructions Recorded Ferrous Sulfate 325 mg PO DAILY 08/15/17 Levothyroxine [Synthroid] 50 mcg PO DAILY 08/15/17 Loratadine 10 mg PO DAILY 08/15/17 apixaban 5 mg tablet 5 mg PO BID tab 11/09/17 atorvastatin 40 mg tablet 40 mg PO DAILY 11/09/17 methenamine hippurate 1 gram tablet 1 g PO QHS 11/09/17 Cyanocobalamin (Vitamin B-12) 1,000 mcg PO DAILY 12/19/18 [Vitamin B-12] Donepezil HCl 10 mg PO QHS 12/19/18 Ergocalciferol (Vitamin D2) 50,000 unit PO FR 12/20/18 [Vitamin D2] Memantine HCl [Memantine HCl ER] 28 mg PO DAILY 12/20/18 fluticasone propionate 50 1 spray INTRANASAL DAILY 05/12/19 mcg/actuation nasal spray,suspension Oxybutynin Chloride [Oxybutynin 5 mg PO DAILY 08/03/19 Chloride ER] meclizine 25 mg tablet 25 mg PO TID PRN 09/01/19 Insulin NPH Hum/Reg Insulin Hm 34 unit SQ DAILY 12/15/19 [Humulin 70-30 Vial] Ondansetron HCl [Zofran] 4 mg PO Q8H PRN 12/15/19 Potassium Chloride 20 meq PO DAILY 12/15/19 cycloBENZAPRine HCl [Flexeril] 5 mg PO TID PRN PRN 12/15/19 Acetaminophen [Tylenol Tablet] 650 mg PO Q6H PRN PRN tab 12/16/19 Cephalexin [Keflex] 500 mg PO BID 12/16/19 Surgical History: Surgical History (Last Reviewed 09/01/19 @ 14:46 by GERMAIN Nelson) History of total abdominal hysterectomy Z90.710 History of cholecystectomy Z90.49 Surgical History: cholecystectomy, hysterectomy Psychiatric History: No pertinent psych hx 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 Smoking Status: Never smoker Tobacco Use: Non-smoker Alcohol: None Drugs: None - *Family History Paternal Family History: Family History (Last Reviewed 12/15/19 @ 22:[address] Romulo Perez MD) Sister Cancer History Items: Hypertension Maternal Family History: Family History (Last Reviewed 12/15/19 @ 22:[address] Romulo Perez MD) Sister Cancer History Items: Hypertension Review of Systems Constitutional: Denies: Chills, Fever, Weight Change HEENT: Denies: Head Aches, Sinus Congestion, Sinus Drainage Cardiovascular: Denies: Chest Pain, Palpitations Respiratory: Denies: Cough, Shortness of breath at rest, Sputum production Gastrointestinal: Denies: Abdominal Pain, Nausea, Vomiting Genitourinary: Denies: Dysuria Musculoskeletal: Denies: Joint Pain, Joint Tenderness Skin: Denies: Rash, Wounds Neurological: Denies: Numbness, Tingling, Focal weakness Psychiatric: Denies: Anxiety, Depression, Homicidal Ideations, Suicidal Ideations Hematologic/ Lymphatic: Denies: Easy Bruising, Easy Bleeding VTE Information - Inpt Only VTE Present on Admission: No VTE Mechan Device Prophylaxis: Knee High PEDRO Hose VTE Pharm Prophylaxis ordered?: No Reason prophylaxis not ordered:: Treatment Not Indicated Patient Problems: Active and Suspected Problems (Last Updated 12/15/19 @ 22:[address] Romulo Perez MD) Fall (Acute) Fecal impaction of colon (Acute) - Physical Exam Vitals/I&O's: Vital Signs Temp Pulse Resp BP Pulse Ox 97.7 F L 76 16 136/65 H 94 12/16/19 17:10 12/16/19 17:10 12/16/19 17:10 12/16/19 17:10 12/16/19 17:10 Oxygen Delivery Method Room Air Weight: 67.721 kg Body Mass Index (BMI) 32.3 Finger Stick Blood Glucose 71 General: Alert, Oriented x3, Cooperative HEENT: Atraumatic, PERRLA, EOMI, Normocephalic Neck: Supple, No JVD, Negative Carotid Bruits Lungs: Clear to auscultation, Normal air movement Cardiovascular: Regular rate, No murmurs Abdomen: Bowel Sounds Present, Soft, Non Tender, - - Full of Stool. Extremities: No edema, Capillary Refill Less than 3 Seconds Skin: No rashes, No breakdown Musculoskeletal: No Tenderness to Palpation of Joints or Extremities Neurological: Cranial nerves II-XII grossly intact Psych/Mental Status: Normal Affect, Appropriate Laboratory Results 12/16/19 17:17: POC Glucose 98 Current Medications Acetaminophen (Tylenol) 650 mg PO Q6H PRN PRN PRN Reason: Pain Score 1-10/Temp > 100.7 F Apixaban (Eliquis) 5 mg PO BID [facility] Atorvastatin Calcium (Lipitor) 40 mg PO DAILY@2200 [facility] Bisacodyl (Dulcolax) 10 mg RECTAL DAILY PRN PRN Reason: Constipation Calamine/Phenol (Calmoseptine Ointment) 1 applic TOPICAL 0600,2200 [facility]; Protocol Cephalexin (Keflex) 500 mg PO BID [facility] Stop: 12/20/19 06:01 Cyanocobalamin (Vitamin B12) 1,000 mcg PO DAILYCM [facility] Cyclobenzaprine HCl (Cyclobenzaprine Hcl) 5 mg PO TID PRN PRN PRN Reason: SPASMS Donepezil HCl (Aricept) 10 mg PO QHS [facility] Ergocalciferol (Vitamin D) 50,000 unit PO FR [facility] Ferrous Sulfate (Ferrous Sulfate) 325 mg PO DAILY@1200 [facility] Fluticasone Propionate (Flonase Nasal [place]) 1 spray NASAL DAILY [facility] Insulin Lispro Protam/Lispro Human (Humalog Mix 75-25 Kwikpen (Bkc)) 34 unit SC DAILY@0730 [facility] Levothyroxine Sodium (Synthroid) 50 mcg PO DAILY [facility] Loratadine (Claritin) 10 mg PO DAILY [facility] Meclizine HCl (Antivert) 25 mg PO TID PRN PRN Reason: Vertigo Memantine (Namenda) 10 mg PO BID [facility] Methenamine Hippurate (Hiprex) 1 gm PO QHS [facility] Nystatin (Mycostatin Powder) 1 applic TOPICAL 599,1999 [facility]; Protocol Ondansetron HCl (Zofran Odt) 4 mg PO Q8H PRN PRN Reason: NAUSEA Potassium Chloride (K-Dur) 20 meq PO DAILYCM [facility] Tolterodine Tartrate (Detrol La) 2 mg PO DAILY [facility] Tuberculin PPD (Tubersol, Aplisol, Ppd) 5 tu ID X1 ONE Stop: 12/17/19 10:01 Tuberculin PPD (Tubersol, Aplisol, Ppd) 5 tu ID X1 ONE Stop: 12/24/19 10:01 Assessment/Plan All Active Problems (Last Updated 12/15/19 @ 22:[address] Romulo Perez MD) UTI (urinary tract infection) (Acute) Fall (Acute) Fecal impaction of colon (Acute) 74 year old female with below past medical history hospitalized for falls secondary to E. Coli urinary tract infection, admitted to TCU with debility, here for rehabilitation, strengthening, prior to discharge to [facility]. Debility - PT/OT. Cognition - ST. Pain - Tylenol 1000MG Q6H PRN pain (1-10). Bowel - Miralax 17GM daily, Senna/colace 1 tablet BID, Dulcolax 10MG MA daily PRN, Magnesium citrate 300ML PO x 1 bottle, Soap Suds Enema for clean out. Adult immunization - Administer Prevnar 13, Pneumovax 23, Fluzone as appropriate. DVT prophylaxis - Not necessary, already on Eliquis. Atrial Fibrillation - Eliquis 5MG BID. Hyperlipidemia - Atorvastatin 40MG QHS. E. Coli urinary tract infection - Keflex 500MG BID thru 12/20/2019. E. Coli sensitivity pending, will follow. Vitamin B12 deficiency - B12 1000MCG daily. Muscle spasm - Flexeril 5MG TID PRN. Alzheimer Disease - Donepezil 10MG QHS, Memantine 10MG BID. Vitamin D deficiency - D2 50,000 units per week. Iron deficiency anemia - Iron sulfate 325MG daily. Allergic Rhinitis - Loratadine 10MG daily, Flonase nasal spray 1 spray daily. Diabetes Mellitus II - Humalog 75/25 34 units QAM. Hypothyroidism - Levothyroxine 50MCG daily. Dizziness - Meclizine 25MG TID PRN. Skin irritation - Calmoseptine BID. Recurrent UTI - Methenamine 1GM QHS. Tinea Corporis - Nystatin powder BID. Nausea - Zofran 4MG Q8H PRN. Hypokalemia - K-Dur 20MEQ daily. Overactive bladder - Tolterodine 2MG daily.
[2019-12-16] MEDS: Memantine Hydrochloride 10 MG Tablet PO (18:33)
[2019-12-16] MEDS: Magnesium Citrate 300 ML PO (18:33)
[2019-12-16] MEDS: APIXABAN 5 MG TABLET PO (18:33)
[2019-12-16] MEDS: Cephalexin 500 MG Capsule PO (18:33)
[2019-12-16] MEDS: Menthol/Lanolin/Calamine/Znox 113 GM Tube 1 APPLIC TOPICAL (21:00)
[2019-12-16] MEDS: Nystatin Powder 15gm Bottle 1 APPLIC TOPICAL (21:00)
[2019-12-16 21:26] LABS: Bedside Glucose 266 mg/dL (70-110)
[2019-12-16] MEDS: Atorvastatin Calcium 40 MG Tablet PO (22:27)
[2019-12-16] MEDS: Donepezil HCl 10 MG Tablet PO (22:27)
[2019-12-16] MEDS: Methenamine Hippurate 1 GM Tablet PO (22:27)
[2019-12-17] MEDS: 0.9% Saline Lock 10 ML Syringe IV ×3 (05:55→22:31)
[2019-12-17] MEDS: Loratadine 10 MG Tablet PO (05:56)
[2019-12-17] MEDS: APIXABAN 5 MG TABLET PO ×2 (05:56→17:51)
[2019-12-17] MEDS: Cephalexin 500 MG Capsule PO ×2 (05:56→17:51)
[2019-12-17] MEDS: Levothyroxine 50 MCG Tablet PO (05:56)
[2019-12-17] MEDS: Tolterodine Tartrate 2 MG CAP.SA PO (05:56)
[2019-12-17] MEDS: Menthol/Lanolin/Calamine/Znox 113 GM Tube 1 APPLIC TOPICAL ×2 (05:56→22:30)
[2019-12-17] MEDS: Senna/Docusate Sodium 1 Tablet PO ×2 (05:56→17:51)
[2019-12-17] MEDS: Polyethylene Glycol 3350 17 GM PACKET PO (05:56)
[2019-12-17] MEDS: Memantine Hydrochloride 10 MG Tablet PO ×2 (05:56→17:50)
[2019-12-17] MEDS: Nystatin Powder 15gm Bottle 1 APPLIC TOPICAL ×2 (05:57→22:28)
[2019-12-17] MEDS: Fluticasone 0.05% 1 SPRAY NASAL.SRY NASAL (05:59)
[2019-12-17 06:01] VITALS: BP 131/70; PULSE 64; RESP 18; TEMP 36.4; O2SAT 97
[2019-12-17 06:11] LABS: Bedside Glucose 153 mg/dL (70-110)
[2019-12-17 07:04] LABS: Absolute Lymphocyte Count 1.28 X10^3/uL (0.83-4.51); Absolute Neutrophil Count 4.4 X10^3/uL (2.0-7.7); Basophil# 0.04 X10^3/uL; Basophil% 0.6 % (0-1); Eosinophil# 0.24 X10^3/uL; Eosinophils% 3.8 % (0-5); Hemoglobin 13.9 g/dL (12.0-15.0); Lymphocyte # 1.28 X10^3/ul (4.0); Mean Corp Hgb Conc 32.3 g/dL (32-36); Mean Corpuscular Hgb 33.1 pg (27.0-32.0); Mean Corpuscular Volume 102.4 fL (81-99); Mean Platelet Vol. 11.8 fl (6.2-12.0); Monocyte# 0.39 X10^3/uL; Monocyte% 6.1 % (0-10); NRBC Flagged by Analyzer 0 % (0-5); Neutrophil # 4.41 X10^3/uL (2.7-7.7); Neutrophil % 68.9 % (47-70); Platelet Count 159 K/mm3 (150-450); RBC Distribution Width CV 13.2 % (11.6-14.6); RBC Distribution Width SD 50.3 fl (35.1-43.9); White Blood Count 6.4 K/mm3 (4.4-11.0)
[2019-12-17 07:39] LABS: Anion Gap 9 (5-15); BUN 20 mg/dL (7-18); BUN/Creat Ratio 18.7 RATIO (10-20); Calcium,Total 8.6 mg/dL (8.5-10.1); Chloride 110 mmol/L (98-107); Creatinine, Serum 1.07 mg/dL (0.55-1.02); EST Glomerular Filtration Rate 53 mL/min (>60); Est Glom Filt Rate - Afr Amer 64 mL/min (>60); Estimated Creatinine Clearance 47.82 ml/min; Glucose 177 mg/dL (74-106); Potassium 3.7 mmol/L (3.5-5.1); Sodium Level 141 mmol/L (136-145)
[2019-12-17] MEDS: Insulin Human 75/25 Kwickpen 34 UNIT SC (07:52)
[2019-12-17] MEDS: Cyanocobalamin 500 MCG Tablet 1000 MCG PO (07:52)
[2019-12-17] MEDS: Tuberculin,Purif.prot.deriv. 50 TU/ML Vial 5 ML ID (10:18)
[2019-12-17 11:00] LABS: Bedside Glucose 107 mg/dL (70-110)
[2019-12-17] MEDS: Ferrous Sulfate 325 MG Tablet PO (11:15)
[2019-12-17 12:40] VITALS: PULSE 70; RESP 18; O2SAT 95
--- NOTE | 2019-12-17 13:11 | NURSING ---
PT JUST FINISHED MAG CITRATE AND HAD A POSITIVE RESULT OF A LARGE FORMED.
[2019-12-17 14:59] VITALS: BP 123/61; PULSE 75; RESP 18; TEMP 36.6; O2SAT 95
[2019-12-17 16:25] LABS: Bedside Glucose 112 mg/dL (70-110)
--- NOTE | 2019-12-17 16:44 | NURSING ---
CALLED TO UPDATE SON AND NO ANSWER. LEFT MESSAGE.
--- NOTE | 2019-12-17 17:57 | NURSING ---
patent refusing soap suds enema. but did agree to take dulcolax po. reported to rn
[2019-12-17 21:46] LABS: Bedside Glucose 223 mg/dL (70-110)
[2019-12-17] MEDS: Methenamine Hippurate 1 GM Tablet PO (22:26)
[2019-12-17] MEDS: Atorvastatin Calcium 40 MG Tablet PO (22:26)
[2019-12-17] MEDS: Donepezil HCl 10 MG Tablet PO (22:27)
[2019-12-18 04:00] VITALS: BP 147/79; PULSE 90; RESP 16; TEMP 37.1; O2SAT 97
[2019-12-18] MEDS: Polyethylene Glycol 3350 17 GM PACKET PO (04:59)
[2019-12-18] MEDS: Nystatin Powder 15gm Bottle 1 APPLIC TOPICAL ×2 (04:59→20:49)
[2019-12-18] MEDS: Fluticasone 0.05% 1 SPRAY NASAL.SRY NASAL (05:00)
[2019-12-18] MEDS: Menthol/Lanolin/Calamine/Znox 113 GM Tube 1 APPLIC TOPICAL ×2 (05:00→20:50)
[2019-12-18] MEDS: Levothyroxine 50 MCG Tablet PO (05:01)
[2019-12-18] MEDS: Cephalexin 500 MG Capsule PO ×2 (05:01→17:01)
[2019-12-18] MEDS: APIXABAN 5 MG TABLET PO ×2 (05:01→17:00)
[2019-12-18] MEDS: Tolterodine Tartrate 2 MG CAP.SA PO (05:01)
[2019-12-18] MEDS: Senna/Docusate Sodium 1 Tablet PO ×2 (05:01→17:02)
[2019-12-18] MEDS: Loratadine 10 MG Tablet PO (05:01)
[2019-12-18] MEDS: Memantine Hydrochloride 10 MG Tablet PO ×2 (05:02→17:01)
[2019-12-18] MEDS: 0.9% Saline Lock 10 ML Syringe IV (05:04)
[2019-12-18 07:36] LABS: Bedside Glucose 203 mg/dL (70-110)
[2019-12-18] MEDS: Insulin Human 75/25 Kwickpen 34 UNIT SC (09:20)
[2019-12-18] MEDS: Cyanocobalamin 500 MCG Tablet 1000 MCG PO (09:21)
[2019-12-18 11:06] LABS: Bedside Glucose 230 mg/dL (70-110)
[2019-12-18] MEDS: Ferrous Sulfate 325 MG Tablet PO (11:57)
--- NOTE | 2019-12-18 13:30 | NURSING ---
Called patients son, no answer, message left to call back if he would like an update.
[2019-12-18 14:16] VITALS: BP 121/61; PULSE 77; RESP 16; TEMP 36.3; O2SAT 96
[2019-12-18 16:25] LABS: Bedside Glucose 263 mg/dL (70-110)
[2019-12-18 20:30] VITALS: PULSE 77; RESP 16; O2SAT 97
[2019-12-18] MEDS: Donepezil HCl 10 MG Tablet PO (20:47)
[2019-12-18] MEDS: Methenamine Hippurate 1 GM Tablet PO (20:48)
[2019-12-18] MEDS: Atorvastatin Calcium 40 MG Tablet PO (20:49)
--- NOTE | 2019-12-18 21:10 | NURSING ---
Pt blood sugar 435 notified Luis Daniel Hilton.
[2019-12-18 21:11] LABS: Bedside Glucose 435 mg/dL (70-110)
[2019-12-18] MEDS: Insulin Lispro 100 UNIT/ML INSULN.PEN 10 UNIT SC (22:15)
--- NOTE | 2019-12-19 01:06 | NURSING ---
Saline lock removed from left antecubital catheter was intact.
[2019-12-19 05:10] VITALS: BP 131/67; PULSE 74; RESP 16; TEMP 36.7; O2SAT 93
[2019-12-19] MEDS: Levothyroxine 50 MCG Tablet PO (05:13)
[2019-12-19] MEDS: APIXABAN 5 MG TABLET PO ×2 (05:13→17:37)
[2019-12-19] MEDS: Tolterodine Tartrate 2 MG CAP.SA PO (05:13)
[2019-12-19] MEDS: Memantine Hydrochloride 10 MG Tablet PO ×2 (05:13→17:37)
[2019-12-19] MEDS: Loratadine 10 MG Tablet PO (05:13)
[2019-12-19] MEDS: Nystatin Powder 15gm Bottle 1 APPLIC TOPICAL ×2 (05:13→20:39)
[2019-12-19] MEDS: Menthol/Lanolin/Calamine/Znox 113 GM Tube 1 APPLIC TOPICAL ×2 (05:14→20:40)
[2019-12-19] MEDS: Polyethylene Glycol 3350 17 GM PACKET PO (05:15)
[2019-12-19] MEDS: Fluticasone 0.05% 1 SPRAY NASAL.SRY NASAL (05:15)
[2019-12-19] MEDS: Senna/Docusate Sodium 1 Tablet PO ×2 (05:25→17:36)
[2019-12-19] MEDS: Cephalexin 500 MG Capsule PO ×2 (05:26→17:37)
[2019-12-19 06:21] LABS: Bedside Glucose 188 mg/dL (70-110)
[2019-12-19] MEDS: Cyanocobalamin 500 MCG Tablet 1000 MCG PO (07:45)
[2019-12-19] MEDS: Insulin Lispro 100 UNIT/ML INSULN.PEN 10 UNIT SC ×2 (07:47→11:38)
[2019-12-19 11:05] LABS: Bedside Glucose 247 mg/dL (70-110)
[2019-12-19] MEDS: Ferrous Sulfate 325 MG Tablet PO (11:38)
[2019-12-19 13:38] VITALS: BP 128/76; PULSE 80; RESP 16; TEMP 37; O2SAT 95
--- NOTE | 2019-12-19 14:00 | PHA.CONS_ITS ---
<Shira Weller - Last Filed: 12/19/19 14:00> Progress Note - Pharmacy Subjective: TCU Admission Objective: Allergies colchicine Allergy (Severe, Verified 12/15/19 18:11) HIVES ALLERGY PILLS Adverse Reaction (Uncoded 12/15/19 18:11) Unknown Current Medications Generic Name Dose Route Start Last Admin Trade Name Freq PRN Reason Stop Dose Admin Acetaminophen 1,000 mg 12/16/19 18:26 Tylenol PO Q6H PRN PRN Pain Score 1-10/10 Apixaban 5 mg 12/16/19 18:00 12/19/19 05:13 Eliquis PO 5 mg BID [facility] Administration Atorvastatin Calcium 40 mg 12/16/19 22:00 12/18/19 20:49 Lipitor PO 40 mg DAILY@2200 [facility] Administration Bisacodyl 10 mg 12/19/19 08:02 Dulcolax PO DAILY PRN Constipation Calamine/Phenol 1 applic 12/16/19 22:00 12/19/19 05:14 Calmoseptine Ointment TOPICAL 1 applicatio 06,0 [facility] Administration Protocol Cephalexin 500 mg 12/16/19 18:00 12/19/19 05:26 Keflex PO 12/20/19 06:01 500 mg BID [facility] Administration Cyanocobalamin 1,000 mcg 12/17/19 08:00 12/19/19 07:45 Vitamin B12 PO 1,000 mcg DAILYCM [facility] Administration Cyclobenzaprine HCl 5 mg 12/16/19 17:12 Cyclobenzaprine Hcl PO TID PRN PRN SPASMS Donepezil HCl 10 mg 12/16/19 22:00 12/18/19 20:47 Aricept PO 10 mg QHS [facility] Administration Ergocalciferol 50,000 unit 12/16/19 17:00 12/16/19 18:33 Vitamin D PO 50,000 unit FR [facility] Administration Ferrous Sulfate 325 mg 12/17/19 12:00 12/19/19 11:38 Ferrous Sulfate PO 325 mg DAILY@1200 [facility] Administration Fluticasone Propionate 1 spray 12/17/19 06:00 12/19/19 05:15 Flonase Nasal Gillespie NASAL 1 spray DAILY [facility] Administration Insulin Glargine 20 units 12/19/19 18:00 Lantus (Bkc) SC BID [facility] Insulin Human Lispro 13 unit 12/19/19 16:45 Humalog Kwikpen (Bkc) SC TIDAC [facility] Levothyroxine Sodium 50 mcg 12/17/19 06:00 12/19/19 05:13 Synthroid PO 50 mcg DAILY [facility] Administration Loratadine 10 mg 12/17/19 06:00 12/19/19 05:13 Claritin PO 10 mg DAILY [facility] Administration Meclizine HCl 25 mg 12/16/19 17:05 Antivert PO TID PRN Vertigo Memantine 10 mg 12/16/19 18:00 12/19/19 05:13 Namenda PO 10 mg BID [facility] Administration Methenamine Hippurate 1 gm 12/16/19 22:00 12/18/19 20:48 Hiprex PO 1 gm QHS [facility] Administration Nystatin 1 applic 12/16/19 22:00 12/19/19 05:13 Mycostatin Powder TOPICAL 1 applicatio 0600,2200 [facility] Administration Protocol Ondansetron HCl 4 mg 12/16/19 17:36 Zofran Odt PO Q8H PRN NAUSEA Polyethylene Glycol 17 gm 12/17/19 06:00 12/19/19 05:15 Miralax PO 17 gm DAILY [facility] Administration Potassium Chloride 20 meq 12/17/19 08:00 12/19/19 07:46 K-Dur PO 20 meq DAILYCM [facility] Administration Senna/Docusate Sodium 1 tablet 12/17/19 06:00 12/19/19 05:25 Senokot-S, Jolynn-Colace PO 1 tablet BID [facility] Administration Sodium Chloride 10 - 40 ml 12/16/19 18:03 12/18/19 05:04 IV 10 ml UD PRN Administration SALINE FLUSH Sodium Chloride 10 - 40 ml 12/18/19 19:35 IV UD PRN SALINE FLUSH Tolterodine Tartrate 2 mg 12/17/19 06:00 12/19/19 05:13 Detrol La PO 2 mg DAILY [facility] Administration Tuberculin PPD 5 tu 12/24/19 10:00 Tubersol, Aplisol, Ppd ID 12/24/19 10:01 X1 ONE Problem List (Last Updated 12/15/19 @ 22:[address] Romulo Perez MD) Fall (Acute) Iron deficiency anemia (Chronic) Hypothyroidism (Chronic) Allergic rhinitis (Chronic) Overactive bladder (Chronic) Dizziness (Chronic) Nausea (Chronic) Hypokalemia (Chronic) Muscle spasm (Chronic) Atrial fibrillation (Chronic) Fecal impaction of colon (Acute) Lumbar spondylosis (Chronic) Diabetes mellitus (Chronic) Alzheimer disease (Chronic) Chronic kidney disease (Chronic) Vital Signs Temp Pulse Resp BP Pulse Ox 98.6 F 80 16 128/76 H 95 12/19/19 13:38 12/19/19 13:38 12/19/19 13:38 12/19/19 13:38 12/19/19 13:38 Oxygen Delivery Method Room Air Weight: 67.721 kg Body Mass Index (BMI) 32.3 Finger Stick Blood Glucose 71 Sodium 141 mmol/L (136-145) 12/17/19 06:32 Potassium 3.7 mmol/L (3.5-5.1) 12/17/19 06:32 Chloride 110 mmol/L (98-107) H 12/17/19 06:32 Carbon Dioxide 22.0 mmol/L (21.0-32.0) 12/17/19 06:32 Anion Gap 9 (5-15) 12/17/19 06:32 BUN 20 mg/dL (7-18) H 12/17/19 06:32 Creatinine 1.07 mg/dL (0.55-1.02) H 12/17/19 06:32 Est GFR (MDRD) Af Amer 64 mL/min (>60) 12/17/19 06:32 Est GFR (MDRD) Non-Af 53 mL/min (>60) L 12/17/19 06:32 BUN/Creatinine Ratio 18.7 RATIO (10-20) 12/17/19 06:32 Glucose 177 mg/dL (74-106) H 12/17/19 06:32 Assessment/Plan: 1. Pain: acetaminophen 1000mg PO Q6H PRN pain 1-04/28. Please continue to monitor for increased pain and PRN usage. 2. E. coli UTI/recurrent UTI: cephalexin 500mg PO BID for 2 more doses and methenamine 1gm PO QHS. Please continue to monitor renal function, diarrhea and for S/S of infection. 3. Atrial fibrillation: apixaban 5mg PO BID. Please continue to monitor renal function, platelets and for S/S of bleeding/stroke. *4. Hyperlipidemia: atorvastatin 40mg PO QHS. Last lipid panel is from 2018. Please consider ordering one now and then annually as clinically appropriate. Thanks. Please continue to monitor for muscle pain and an increase in LFTs. 5. Alzheimer disease: donepezil 10mg PO QHS and memantine 10mg PO BID. Please continue to monitor for GI side effects, dizziness, and fatigue. 6. Iron deficiency anemia: ferrous sulfate 325mg PO daily @1200. Please continue to monitor hemoglobin and for dark stools. *7. Diabetes mellitus type II: insulin glargine 20 units SC BID and insulin lispro 13 units SC TIDAC. Please consider adding hypoglycemia protocol (dextrose and glucagon). Please continue to monitor POC glucose, hemoglobin A1c, and for S/S of hypo/hyperglycemia. Thanks. 8. Hypothyroidism: levothyroxine 50mcg PO daily. Please continue to monitor TSH and for S/S of hypo/hyperthyroidism. 9. Overactive bladder: tolterodine 2mg PO daily. Please continue to monitor for urinary frequency/urgency, dry mouth, constipation and dry eyes. 10. Muscle spasm: cyclobenzaprine 5mg PO TID PRN spasms. Please continue to monitor for muscle spams and PRN usage. 11. Allergic rhinitis: loratadine 10mg PO daily and fluticasone 0.05% nasal spray 1 spray in each nostril once daily. Please continue to monitor for allergy symptoms. 12. Hypokalemia: potassium chloride 20mEq PO DAILYCM. Please continue to monitor potassium levels and for upset stomach. 13. Nausea: ondansetron 4mg PO Q8H PRN nausea. Please continue to monitor for nausea and PRN usage. 14. Dizziness: meclizine 25mg PO TID PRN vertigo. Please continue to monitor for dizziness and PRN usage. *15. Vitamin deficiencies: cyanocobalamin 1000mcg PO DAILYCM and ergocalciferol [id number] PO on Fridays. Last vitamin B12 level is from 2018 and last vitamin D level is from 2019. Please consider ordering both a vitamin B12 level and a vitamin D level now and then annually as clinically appropriate. Psychotropic Medications: None Unnecessary Medications: None Bowel Regimen: Miralax 17gm PO daily, senna/docusate 1T PO BID, and bisacodyl 10mg PO daily PRN constipation. Please continue to monitor for constipation, diarrhea and increased PRN usage. Date of Note:: 12/19/19 - Provider Comments Provider responsibility: Provider responsible to enter orders to implement recommendations <Maciej Araiza Chi - Last Filed: 12/19/19 17:01> Progress Note - Pharmacy Subjective: [] Objective: Allergies colchicine Allergy (Severe, Verified 12/15/19 18:11) HIVES ALLERGY PILLS Adverse Reaction (Uncoded 12/15/19 18:11) Unknown Current Medications Generic Name Dose Route Start Last Admin Trade Name Freq PRN Reason Stop Dose Admin Acetaminophen 1,000 mg 12/16/19 18:26 Tylenol PO Q6H PRN PRN Pain Score 1-10/10 Apixaban 5 mg 12/16/19 18:00 12/19/19 05:13 Eliquis PO 5 mg BID [facility] Administration Atorvastatin Calcium 40 mg 12/16/19 22:00 12/18/19 20:49 Lipitor PO 40 mg DAILY@2200 [facility] Administration Bisacodyl 10 mg 12/19/19 08:02 Dulcolax PO DAILY PRN Constipation Calamine/Phenol 1 applic 12/16/19 22:00 12/19/19 05:14 Calmoseptine Ointment TOPICAL 1 applicatio 0600,2200 [facility] Administration Protocol Cephalexin 500 mg 12/16/19 18:00 12/19/19 05:26 Keflex PO 12/20/19 06:01 500 mg BID [facility] Administration Cyanocobalamin 1,000 mcg 12/17/19 08:00 12/19/19 07:45 Vitamin B12 PO 1,000 mcg DAILYCM [facility] Administration Cyclobenzaprine HCl 5 mg 12/16/19 17:12 Cyclobenzaprine Hcl PO TID PRN PRN SPASMS Donepezil HCl 10 mg 12/16/19 22:00 12/18/19 20:47 Aricept PO 10 mg QHS [facility] Administration Ergocalciferol 50,000 unit 12/16/19 17:00 12/16/19 18:33 Vitamin D PO 50,000 unit FR [facility] Administration Ferrous Sulfate 325 mg 12/17/19 12:00 12/19/19 11:38 Ferrous Sulfate PO 325 mg DAILY@1200 [facility] Administration Fluticasone Propionate 1 spray 12/17/19 06:00 12/19/19 05:15 Flonase Nasal Gillespie NASAL 1 spray DAILY [facility] Administration Insulin Glargine 20 units 12/19/19 18:00 Lantus ([facility]) SC BID [facility] Insulin Human Lispro 13 unit 12/19/19 16:45 Humalog Kwikpen ([facility]) SC TIDAC [facility] Levothyroxine Sodium 50 mcg 12/17/19 06:00 12/19/19 05:13 Synthroid PO 50 mcg DAILY [facility] Administration Loratadine 10 mg 12/17/19 06:00 12/19/19 05:13 Claritin PO 10 mg DAILY [facility] Administration Meclizine HCl 25 mg 12/16/19 17:05 Antivert PO TID PRN Vertigo Memantine 10 mg 12/16/19 18:00 12/19/19 05:13 Namenda PO 10 mg BID [facility] Administration Methenamine Hippurate 1 gm 12/16/19 22:00 12/18/19 20:48 Hiprex PO 1 gm QHS [facility] Administration Nystatin 1 applic 12/16/19 22:00 12/19/19 05:13 Mycostatin Powder TOPICAL 1 applicatio 0600,2200 [facility] Administration Protocol Ondansetron HCl 4 mg 12/16/19 17:36 Zofran Odt PO Q8H PRN NAUSEA Polyethylene Glycol 17 gm 12/17/19 06:00 12/19/19 05:15 Miralax PO 17 gm DAILY [facility] Administration Potassium Chloride 20 meq 12/17/19 08:00 12/19/19 07:46 K-Dur PO 20 meq DAILYCM [facility] Administration Senna/Docusate Sodium 1 tablet 12/17/19 06:00 12/19/19 05:25 Senokot-S, Jolynn-Colace PO 1 tablet BID [facility] Administration Sodium Chloride 10 - 40 ml 12/16/19 18:03 12/18/19 05:04 IV 10 ml UD PRN Administration SALINE FLUSH Sodium Chloride 10 - 40 ml 12/18/19 19:35 IV UD PRN SALINE FLUSH Tolterodine Tartrate 2 mg 12/17/19 06:00 12/19/19 05:13 Detrol La PO 2 mg DAILY [facility] Administration Tuberculin PPD 5 tu 12/24/19 10:00 Tubersol, Aplisol, Ppd ID 12/24/19 10:01 X1 ONE Problem List (Last Updated 12/15/19 @ 22:[address] Romulo Perez MD) Fall (Acute) Iron deficiency anemia (Chronic) Hypothyroidism (Chronic) Allergic rhinitis (Chronic) Overactive bladder (Chronic) Dizziness (Chronic) Nausea (Chronic) Hypokalemia (Chronic) Muscle spasm (Chronic) Atrial fibrillation (Chronic) Fecal impaction of colon (Acute) Lumbar spondylosis (Chronic) Diabetes mellitus (Chronic) Alzheimer disease (Chronic) Chronic kidney disease (Chronic) Vital Signs Temp Pulse Resp BP Pulse Ox 98.6 F 80 16 128/76 H 95 12/19/19 13:38 12/19/19 13:38 12/19/19 13:38 12/19/19 13:38 12/19/19 13:38 Oxygen Delivery Method Room Air Weight: 67.721 kg Body Mass Index (BMI) 32.3 Finger Stick Blood Glucose 71 Sodium 141 mmol/L (136-145) 12/17/19 06:32 Potassium 3.7 mmol/L (3.5-5.1) 12/17/19 06:32 Chloride 110 mmol/L (98-107) H 12/17/19 06:32 Carbon Dioxide 22.0 mmol/L (21.0-32.0) 12/17/19 06:32 Anion Gap 9 (5-15) 12/17/19 06:32 BUN 20 mg/dL (7-18) H 12/17/19 06:32 Creatinine 1.07 mg/dL (0.55-1.02) H 12/17/19 06:32 Est GFR (MDRD) Af Amer 64 mL/min (>60) 12/17/19 06:32 Est GFR (MDRD) Non-Af 53 mL/min (>60) L 12/17/19 06:32 BUN/Creatinine Ratio 18.7 RATIO (10-20) 12/17/19 06:32 Glucose 177 mg/dL (74-106) H 12/17/19 06:32 Assessment/Plan: Psychotropic Medications: Unnecessary Medications: Bowel Regimen: - Provider Comments Provider responsibility: Provider responsible to enter orders to implement recommendations Provider Comments to Recommendations by Pharmacy: Agree
--- NOTE | 2019-12-19 15:52 | NURSING ---
made phone call,no answer,left message.
[2019-12-19 17:00] LABS: Bedside Glucose 158 mg/dL (70-110)
[2019-12-19] MEDS: Insulin Lispro 100 UNIT/ML INSULN.PEN 13 UNIT SC (17:41)
[2019-12-19] MEDS: Atorvastatin Calcium 40 MG Tablet PO (20:30)
[2019-12-19] MEDS: Methenamine Hippurate 1 GM Tablet PO (20:30)
[2019-12-19] MEDS: Donepezil HCl 10 MG Tablet PO (20:30)
[2019-12-19 20:40] VITALS: PULSE 78; O2SAT 94
[2019-12-19 21:15] LABS: Bedside Glucose 130 mg/dL (70-110)
[2019-12-20] MEDS: Cephalexin 500 MG Capsule PO (06:02)
[2019-12-20] MEDS: APIXABAN 5 MG TABLET PO ×2 (06:02→17:45)
[2019-12-20] MEDS: Tolterodine Tartrate 2 MG CAP.SA PO (06:02)
[2019-12-20] MEDS: Memantine Hydrochloride 10 MG Tablet PO ×2 (06:02→17:45)
[2019-12-20] MEDS: Loratadine 10 MG Tablet PO (06:02)
[2019-12-20] MEDS: Levothyroxine 50 MCG Tablet PO (06:02)
[2019-12-20] MEDS: Senna/Docusate Sodium 1 Tablet PO ×2 (06:02→17:45)
[2019-12-20] MEDS: Menthol/Lanolin/Calamine/Znox 113 GM Tube 1 APPLIC TOPICAL ×2 (06:03→19:38)
[2019-12-20] MEDS: Fluticasone 0.05% 1 SPRAY NASAL.SRY NASAL (06:08)
[2019-12-20] MEDS: Polyethylene Glycol 3350 17 GM PACKET PO (06:09)
[2019-12-20 06:10] LABS: Bedside Glucose 146 mg/dL (70-110)
[2019-12-20] MEDS: Nystatin Powder 15gm Bottle 1 APPLIC TOPICAL ×2 (06:10→19:38)
[2019-12-20 06:11] VITALS: BP 116/71; PULSE 62; RESP 16; TEMP 36.7; O2SAT 96
[2019-12-20] MEDS: Cyanocobalamin 500 MCG Tablet 1000 MCG PO (08:21)
[2019-12-20] MEDS: Insulin Lispro 100 UNIT/ML INSULN.PEN 13 UNIT SC (08:22)
[2019-12-20 08:50] VITALS: PULSE 83; RESP 18; O2SAT 94
--- NOTE | 2019-12-20 11:19 | NURSING ---
Blood Sugar 46, asymptomatic. OJ given. will recheck & update Dr Araiza.
[2019-12-20 11:26] LABS: Bedside Glucose 51 mg/dL (70-110)
[2019-12-20] MEDS: Ferrous Sulfate 325 MG Tablet PO (11:50)
[2019-12-20 11:55] LABS: Bedside Glucose 109 mg/dL (70-110)
[2019-12-20 13:45] LABS: Bedside Glucose 52 mg/dL (70-110)
[2019-12-20 13:45] LABS: Bedside Glucose 46 mg/dL (70-110)
[2019-12-20 14:41] VITALS: BP 134/71; PULSE 70; RESP 18; TEMP 36.3; O2SAT 96
[2019-12-20 16:45] LABS: Bedside Glucose 140 mg/dL (70-110)
[2019-12-20] MEDS: Bisacodyl 5 MG Tablet 10 MG PO (17:44)
[2019-12-20] MEDS: Insulin Lispro 100 UNIT/ML INSULN.PEN 7 UNIT SC (17:49)
[2019-12-20] MEDS: Atorvastatin Calcium 40 MG Tablet PO (19:37)
[2019-12-20] MEDS: Donepezil HCl 10 MG Tablet PO (19:37)
[2019-12-20] MEDS: Methenamine Hippurate 1 GM Tablet PO (19:37)
[2019-12-20 21:26] LABS: Bedside Glucose 106 mg/dL (70-110)
[2019-12-21] MEDS: ACETAMINOPHEN 500 MG TABLET 1000 MG PO (00:38)
[2019-12-21 06:20] LABS: Bedside Glucose 117 mg/dL (70-110)
[2019-12-21 06:25] VITALS: BP 165/68; PULSE 68; RESP 17; TEMP 36.4; O2SAT 95
[2019-12-21] MEDS: Polyethylene Glycol 3350 17 GM PACKET PO (06:28)
[2019-12-21] MEDS: Tolterodine Tartrate 2 MG CAP.SA PO (06:28)
[2019-12-21] MEDS: Senna/Docusate Sodium 1 Tablet PO ×2 (06:28→17:20)
[2019-12-21] MEDS: Memantine Hydrochloride 10 MG Tablet PO ×2 (06:28→17:20)
[2019-12-21] MEDS: APIXABAN 5 MG TABLET PO ×2 (06:28→17:20)
[2019-12-21] MEDS: Loratadine 10 MG Tablet PO (06:28)
[2019-12-21] MEDS: Fluticasone 0.05% 1 SPRAY NASAL.SRY NASAL (06:28)
[2019-12-21] MEDS: Levothyroxine 50 MCG Tablet PO (06:28)
[2019-12-21] MEDS: Menthol/Lanolin/Calamine/Znox 113 GM Tube 1 APPLIC TOPICAL ×2 (06:29→21:29)
[2019-12-21] MEDS: Nystatin Powder 15gm Bottle 1 APPLIC TOPICAL ×2 (06:29→21:31)
[2019-12-21] MEDS: Insulin Lispro 100 UNIT/ML INSULN.PEN 7 UNIT SC ×2 (08:02→12:17)
[2019-12-21] MEDS: Cyanocobalamin 500 MCG Tablet 1000 MCG PO (08:02)
[2019-12-21 11:06] LABS: Bedside Glucose 96 mg/dL (70-110)
[2019-12-21] MEDS: Ferrous Sulfate 325 MG Tablet PO (13:00)
[2019-12-21 13:43] VITALS: BP 101/56; PULSE 75; RESP 14; TEMP 37.2; O2SAT 96
--- NOTE | 2019-12-21 13:50 | CASEMGMT ---
Social Work IDT met with patient for care plan meeting. Discussed patient's progress in therapy. Pt is ambulating 60 ft with FWW at CGA, transfers at CGA with FWW, mod assist for bed mobility. Pt is min assist for UE ADLs, mod assist for LE ADLS, CGA for toileting, mod assist for clothing, min for hygiene. Pt is puree/thin diet, needs supervised for meals with verbal cues for small bites/ sips. Pt is having alternate tastes for increased oral awareness, and recommending 09/02 supervision with memory care assist. Pt was on a 1500 calorie, cardiac diet, but lost weight and is now changed to a CCD diet that is less restrictive. Her blood sugars range from 45-445. Pt stated [facility] completed insulin administration. Pt is receiving ensure pudding at lunch and dinner. Pt is out of room isolation 12/31. Explained insurance coverage with [employer]D 12/18 and continued stay is not guaranteed. The goal is for pt to return him [facility], but recommending memory care at another facility and [facility] cannot assist with altered diet. Will continue to work on improvements for pt to return to [facility]. Provided update to Caty West Will continue to follow. NILSON Aguiar SW
[2019-12-21 17:01] LABS: Bedside Glucose 87 mg/dL (70-110)
[2019-12-21 17:01] LABS: Bedside Glucose 56 mg/dL (70-110)
--- NOTE | 2019-12-21 17:02 | NURSING ---
pt stated she was not feeling well, pts BS 56, pt was given a glass of orange juice, a tablespoon of peanut butter and a pudding cup, BS rechecked and increased to 87
[2019-12-21 21:26] LABS: Bedside Glucose 202 mg/dL (70-110)
[2019-12-21] MEDS: Donepezil HCl 10 MG Tablet PO (21:29)
[2019-12-21] MEDS: Methenamine Hippurate 1 GM Tablet PO (21:29)
[2019-12-21] MEDS: Atorvastatin Calcium 40 MG Tablet PO (21:31)
[2019-12-22 04:00] VITALS: BP 103/71; PULSE 71; RESP 14; TEMP 36.7; O2SAT 95
[2019-12-22 06:16] LABS: Bedside Glucose 167 mg/dL (70-110)
[2019-12-22] MEDS: APIXABAN 5 MG TABLET PO ×2 (06:19→17:24)
[2019-12-22] MEDS: Memantine Hydrochloride 10 MG Tablet PO ×2 (06:19→17:24)
[2019-12-22] MEDS: Tolterodine Tartrate 2 MG CAP.SA PO (06:19)
[2019-12-22] MEDS: Loratadine 10 MG Tablet PO (06:19)
[2019-12-22] MEDS: Menthol/Lanolin/Calamine/Znox 113 GM Tube 1 APPLIC TOPICAL ×2 (06:19→20:00)
[2019-12-22] MEDS: Nystatin Powder 15gm Bottle 1 APPLIC TOPICAL ×2 (06:20→20:01)
[2019-12-22] MEDS: Senna/Docusate Sodium 1 Tablet PO ×2 (06:20→17:24)
[2019-12-22] MEDS: Levothyroxine 50 MCG Tablet PO (06:20)
[2019-12-22] MEDS: Fluticasone 0.05% 1 SPRAY NASAL.SRY NASAL (06:20)
[2019-12-22] MEDS: Polyethylene Glycol 3350 17 GM PACKET PO (06:21)
[2019-12-22] MEDS: Cyanocobalamin 500 MCG Tablet 1000 MCG PO (07:37)
[2019-12-22 08:00] VITALS: PULSE 74; RESP 16; O2SAT 97
[2019-12-22 10:56] LABS: Bedside Glucose 253 mg/dL (70-110)
[2019-12-22] MEDS: Ferrous Sulfate 325 MG Tablet PO (11:08)
[2019-12-22 13:32] VITALS: BP 133/74; PULSE 72; RESP 20; TEMP 37.1; O2SAT 98
[2019-12-22 16:55] LABS: Bedside Glucose 250 mg/dL (70-110)
[2019-12-22] MEDS: Atorvastatin Calcium 40 MG Tablet PO (19:53)
[2019-12-22] MEDS: Methenamine Hippurate 1 GM Tablet PO (19:53)
[2019-12-22] MEDS: Donepezil HCl 10 MG Tablet PO (19:53)
[2019-12-22 21:06] LABS: Bedside Glucose 330 mg/dL (70-110)
[2019-12-23 04:00] VITALS: BP 131/63; PULSE 65; RESP 16; TEMP 36.9; O2SAT 95
[2019-12-23] MEDS: APIXABAN 5 MG TABLET PO ×2 (05:05→17:53)
[2019-12-23] MEDS: Loratadine 10 MG Tablet PO (05:05)
[2019-12-23] MEDS: Memantine Hydrochloride 10 MG Tablet PO ×2 (05:05→17:53)
[2019-12-23] MEDS: Polyethylene Glycol 3350 17 GM PACKET PO (05:05)
[2019-12-23] MEDS: Tolterodine Tartrate 2 MG CAP.SA PO (05:05)
[2019-12-23] MEDS: Levothyroxine 50 MCG Tablet PO (05:05)
[2019-12-23] MEDS: Menthol/Lanolin/Calamine/Znox 113 GM Tube 1 APPLIC TOPICAL ×2 (05:06→20:45)
[2019-12-23] MEDS: Nystatin Powder 15gm Bottle 1 APPLIC TOPICAL ×2 (05:07→20:45)
[2019-12-23] MEDS: Fluticasone 0.05% 1 SPRAY NASAL.SRY NASAL (05:07)
[2019-12-23] MEDS: Senna/Docusate Sodium 1 Tablet PO ×2 (05:08→17:59)
[2019-12-23 06:11] LABS: Bedside Glucose 184 mg/dL (70-110)
[2019-12-23] MEDS: Cyanocobalamin 500 MCG Tablet 1000 MCG PO (07:18)
[2019-12-23 11:05] LABS: Bedside Glucose 336 mg/dL (70-110)
[2019-12-23] MEDS: Ferrous Sulfate 325 MG Tablet PO (11:22)
--- NOTE | 2019-12-23 11:47 | CASEMGMT ---
Social Work Left message with son to discuss alternative DC plans as [facility] cannot accept pt on altered diet and with assistance with ADLs. NRD 12/25. Will continue to follow. Ada Arias, PRESCHOOL ASSISTANT PRINCIPAL CORSET MAKER
--- NOTE | 2019-12-23 11:48 | NURSING ---
pt laying in bed when nurse in to get pt up for lunch. bs high again and pt stated, something just doesnt feel right vs stable. dr. padilla texted and restarted on humalog and stat ua c&s and labs ordered. aware of formed but yellow stools.
[2019-12-23 12:08] LABS: Absolute Lymphocyte Count 1.03 X10^3/uL (0.83-4.51); Absolute Neutrophil Count 4.2 X10^3/uL (2.0-7.7); Basophil# 0.04 X10^3/uL; Basophil% 0.7 % (0-1); Eosinophil# 0.15 X10^3/uL; Eosinophils% 2.6 % (0-5); Hemoglobin 14.4 g/dL (12.0-15.0); Lymphocyte # 1.03 X10^3/ul (4.0); Lymphocyte % 17.9 % (19-41); Mean Corp Hgb Conc 32.7 g/dL (32-36); Mean Corpuscular Hgb 32.7 pg (27.0-32.0); Mean Corpuscular Volume 99.8 fL (81-99); Mean Platelet Vol. 12.1 fl (6.2-12.0); Monocyte# 0.28 X10^3/uL; Monocyte% 4.9 % (0-10); NRBC Flagged by Analyzer 0 % (0-5); Neutrophil # 4.24 X10^3/uL (2.7-7.7); Neutrophil % 73.6 % (47-70); Platelet Count 147 K/mm3 (150-450); RBC Distribution Width CV 12.7 % (11.6-14.6); RBC Distribution Width SD 45.8 fl (35.1-43.9); Red Blood Count 4.41 M/mm3 (4.2-5.4); White Blood Count 5.8 K/mm3 (4.4-11.0)
[2019-12-23 12:42] LABS: ALB/GLOB Ratio 0.7 RATIO (0.9-2.4); AST(SGOT) 54 U/L (15-37); Alanine Aminotransfer ALT/SGPT 84 U/L (13-56); Alkaline Phosphatase 93 U/L (45-117); Amylase 12 U/L (25-115); Anion Gap 7 (5-15); BUN 19 mg/dL (7-18); BUN/Creat Ratio 15.6 RATIO (10-20); Chloride 103 mmol/L (98-107); Creatinine, Serum 1.22 mg/dL (0.55-1.02); EST Glomerular Filtration Rate 46 mL/min (>60); Est Glom Filt Rate - Afr Amer 55 mL/min (>60); Globulin 4.1 g/dL (2.2-4.2); Glucose 349 mg/dL (74-106); Lipase 12 U/L (73-393); Potassium 4.6 mmol/L (3.5-5.1); Protein, Total 7.1 g/dL (6.4-8.2); Sodium Level 137 mmol/L (136-145)
[2019-12-23 12:43] LABS: Mucous, Urine 0 SEEN /hpf (<or=2+); Red Blood Cells-Urine 0 SEEN /hpf (0-5); Squamous Epithelial Cells - UA 0 SEEN /hpf (5-10)
[2019-12-23] MEDS: Insulin Lispro 100 UNIT/ML INSULN.PEN 7 UNIT SC ×2 (12:43→17:55)
[2019-12-23 12:48] LABS: Color, Urine Yellow (Yellow); Glucose, Dipstick 250 mg/dl (Normal); Ketone-Dipstick Negative (Negative); Leukocyte Esterase-Dipstick Negative /ul (Negative); Nitrite-Dipstick Negative (Negative); Occult Blood-Urine Negative /ul (Negative); Protein-Dipstick Negative (Negative); Urine Bilirubin Dipstick Negative (Negative); Urine Clarity Clear (Clear); Urine Urobilinogen Normal (Normal)
--- NOTE | 2019-12-23 12:49 | NURSING ---
Son was called but did not answer message was left to return phone call
[2019-12-23 13:10] LABS: Bacteria 1+ /hpf (None Seen); White Blood Cells 0-5 SEEN /hpf (0-5)
--- NOTE | 2019-12-23 13:36 | RAD_ITS ---
STUDY: X-RAY - ABDOMEN/PELVIS REASON FOR EXAM: Female, 74 years old. Abdomen pain TECHNIQUE: Single AP view of the abdomen / pelvis. COMPARISON: None. FINDINGS: Elevation of the right hemidiaphragm. Calcified granuloma in the left lower lobe. There is a moderate amount of colonic fecal material. The visualized liver, spleen and kidneys are grossly normal in size and morphology. There are calcified phleboliths in the pelvis. There are diffuse degenerative changes of the visualized lumbar spine. RAD/Abdomen Single View IMPRESSION: Moderate amount of fecal material is seen in the colon. Electronically Signed: Jayro Brandon, at 15:04 EDT , Service support ,
[2019-12-23 13:45] VITALS: BP 129/82; PULSE 77; RESP 16; TEMP 36.6; O2SAT 97
[2019-12-23] MEDS: 0.9% Normal Saline 1,000 ML 75 ML IV (14:31)
[2019-12-23 17:01] LABS: Bedside Glucose 144 mg/dL (70-110)
[2019-12-23] MEDS: Magnesium Citrate 300 ML PO (17:51)
[2019-12-23 20:35] VITALS: PULSE 70; RESP 16; O2SAT 97
[2019-12-23] MEDS: Methenamine Hippurate 1 GM Tablet PO (20:42)
[2019-12-23] MEDS: Atorvastatin Calcium 40 MG Tablet PO (20:43)
[2019-12-23] MEDS: Donepezil HCl 10 MG Tablet PO (20:44)
[2019-12-23 21:06] LABS: Bedside Glucose 163 mg/dL (70-110)
[2019-12-24 02:11] LABS: Bedside Glucose 145 mg/dL (70-110)
--- NOTE | 2019-12-24 03:06 | NURSING ---
Pt was given mag citrate per doctor order. SSE was not administered because pt had a medium bowel movement per doctor order.
[2019-12-24] MEDS: 0.9% Normal Saline 1,000 ML 75 ML IV ×2 (03:46→16:08)
[2019-12-24 04:00] VITALS: BP 130/77; PULSE 62; RESP 16; TEMP 37.1; O2SAT 98
[2019-12-24 06:15] LABS: Bedside Glucose 134 mg/dL (70-110)
[2019-12-24] MEDS: Polyethylene Glycol 3350 17 GM PACKET PO (06:42)
[2019-12-24] MEDS: Nystatin Powder 15gm Bottle 1 APPLIC TOPICAL ×2 (06:44→19:48)
[2019-12-24] MEDS: Menthol/Lanolin/Calamine/Znox 113 GM Tube 1 APPLIC TOPICAL ×2 (06:44→19:48)
[2019-12-24] MEDS: Senna/Docusate Sodium 1 Tablet PO (06:45)
[2019-12-24] MEDS: Fluticasone 0.05% 1 SPRAY NASAL.SRY NASAL (06:45)
[2019-12-24] MEDS: Levothyroxine 50 MCG Tablet PO (06:45)
[2019-12-24] MEDS: Tolterodine Tartrate 2 MG CAP.SA PO (06:45)
[2019-12-24] MEDS: APIXABAN 5 MG TABLET PO ×2 (06:45→18:11)
[2019-12-24] MEDS: Loratadine 10 MG Tablet PO (06:45)
[2019-12-24] MEDS: Memantine Hydrochloride 10 MG Tablet PO ×2 (06:45→18:11)
[2019-12-24 07:09] LABS: Absolute Lymphocyte Count 1.45 X10^3/uL (0.83-4.51); Absolute Neutrophil Count 4.2 X10^3/uL (2.0-7.7); Basophil# 0.02 X10^3/uL; Basophil% 0.3 % (0-1); Eosinophil# 0.16 X10^3/uL; Eosinophils% 2.6 % (0-5); Hemoglobin 14.3 g/dL (12.0-15.0); Lymphocyte # 1.45 X10^3/ul (4.0); Lymphocyte % 23.6 % (19-41); Mean Corp Hgb Conc 32.5 g/dL (32-36); Mean Corpuscular Hgb 32.8 pg (27.0-32.0); Mean Corpuscular Volume 100.9 fL (81-99); Mean Platelet Vol. 12.2 fl (6.2-12.0); Monocyte# 0.34 X10^3/uL; Monocyte% 5.5 % (0-10); NRBC Flagged by Analyzer 0 % (0-5); Neutrophil # 4.15 X10^3/uL (2.7-7.7); Neutrophil % 67.7 % (47-70); Platelet Count 150 K/mm3 (150-450); RBC Distribution Width CV 12.3 % (11.6-14.6); RBC Distribution Width SD 45.7 fl (35.1-43.9); Red Blood Count 4.36 M/mm3 (4.2-5.4); White Blood Count 6.1 K/mm3 (4.4-11.0)
[2019-12-24 07:35] LABS: ALB/GLOB Ratio 0.8 RATIO (0.9-2.4); AST(SGOT) 68 U/L (15-37); Alanine Aminotransfer ALT/SGPT 109 U/L (13-56); Albumin, Serum 2.9 g/dL (3.2-5.0); Alkaline Phosphatase 88 U/L (45-117); Anion Gap 5 (5-15); BUN 13 mg/dL (7-18); BUN/Creat Ratio 13.2 RATIO (10-20); Calcium,Total 8.7 mg/dL (8.5-10.1); Chloride 111 mmol/L (98-107); Creatinine, Serum 0.98 mg/dL (0.55-1.02); EST Glomerular Filtration Rate 58 mL/min (>60); Est Glom Filt Rate - Afr Amer 71 mL/min (>60); Estimated Creatinine Clearance 50.42 ml/min; Globulin 3.7 g/dL (2.2-4.2); Glucose 135 mg/dL (74-106); Potassium 4.4 mmol/L (3.5-5.1); Protein, Total 6.6 g/dL (6.4-8.2); Sodium Level 142 mmol/L (136-145)
[2019-12-24] MEDS: Cyanocobalamin 500 MCG Tablet 1000 MCG PO (07:54)
[2019-12-24] MEDS: Insulin Lispro 100 UNIT/ML INSULN.PEN 7 UNIT SC ×2 (07:55→12:02)
[2019-12-24 10:00] VITALS: PULSE 86; RESP 18; O2SAT 99
[2019-12-24] MEDS: Tuberculin,Purif.prot.deriv. 50 TU/ML Vial 5 ML ID (10:15)
[2019-12-24 11:20] LABS: Bedside Glucose 142 mg/dL (70-110)
[2019-12-24] MEDS: Ferrous Sulfate 325 MG Tablet PO (12:02)
[2019-12-24 14:21] VITALS: BP 142/55; PULSE 61; RESP 16; TEMP 36.3; O2SAT 96
--- NOTE | 2019-12-24 16:13 | NURSING ---
son called by this nurse. no answer,left message.
[2019-12-24 17:21] LABS: Bedside Glucose 73 mg/dL (70-110)
[2019-12-24] MEDS: Methenamine Hippurate 1 GM Tablet PO (19:50)
[2019-12-24 21:31] LABS: Bedside Glucose 153 mg/dL (70-110)
[2019-12-25 04:00] VITALS: BP 123/70; PULSE 62; RESP 14; TEMP 37; O2SAT 96
[2019-12-25] MEDS: 0.9% Normal Saline 1,000 ML 75 ML IV (06:00)
[2019-12-25] MEDS: Fluticasone 0.05% 1 SPRAY NASAL.SRY NASAL (06:07)
[2019-12-25] MEDS: Nystatin Powder 15gm Bottle 1 APPLIC TOPICAL ×2 (06:07→20:23)
[2019-12-25] MEDS: Tolterodine Tartrate 2 MG CAP.SA PO (06:07)
[2019-12-25] MEDS: Levothyroxine 50 MCG Tablet PO (06:07)
[2019-12-25] MEDS: Loratadine 10 MG Tablet PO (06:07)
[2019-12-25] MEDS: APIXABAN 5 MG TABLET PO ×2 (06:07→17:06)
[2019-12-25] MEDS: Menthol/Lanolin/Calamine/Znox 113 GM Tube 1 APPLIC TOPICAL ×2 (06:07→20:23)
[2019-12-25] MEDS: Memantine Hydrochloride 10 MG Tablet PO (06:07)
[2019-12-25] MEDS: Senna/Docusate Sodium 1 Tablet PO (06:07)
[2019-12-25] MEDS: Polyethylene Glycol 3350 17 GM PACKET PO (06:07)
[2019-12-25 06:35] LABS: Bedside Glucose 118 mg/dL (70-110)
[2019-12-25] MEDS: Cyanocobalamin 500 MCG Tablet 1000 MCG PO (08:32)
--- NOTE | 2019-12-25 10:14 | NURSING ---
pt continues with poor appetite & lower blood sugars. Dr Araiza updated, new order to dc namenda, detrol la, iron, potassium, humalog and change IVF to d5.45 NS continuous. lantus decreased to bedtime only.
[2019-12-25] MEDS: Dext 5%-0.45% NS 1,000 ML 75 ML IV ×2 (10:41→23:56)
[2019-12-25 11:25] LABS: Bedside Glucose 232 mg/dL (70-110)
[2019-12-25 14:49] VITALS: BP 127/70; PULSE 55; RESP 16; TEMP 36.3; O2SAT 99
[2019-12-25 17:01] LABS: Bedside Glucose 243 mg/dL (70-110)
[2019-12-25 17:39] LABS: HEPATITIS B SURFACE AG Negative (Negative); Hepatitis A IgM Antibody Negative (Negative); Hepatitis B Core AB IgM Negative (Negative)
[2019-12-25] MEDS: Mirtazapine 15 MG Tablet 7.5 MG PO (20:23)
[2019-12-25 21:13] LABS: Hep C Antibodies 0.1 s/co ratio (0.0-0.9)
[2019-12-25 21:20] LABS: Bedside Glucose 279 mg/dL (70-110)
[2019-12-26 04:00] VITALS: BP 120/61; PULSE 54; RESP 14; TEMP 36.6; O2SAT 96
[2019-12-26] MEDS: Fluticasone 0.05% 1 SPRAY NASAL.SRY NASAL (04:57)
[2019-12-26] MEDS: APIXABAN 5 MG TABLET PO ×2 (04:57→18:04)
[2019-12-26] MEDS: Levothyroxine 50 MCG Tablet PO (04:57)
[2019-12-26] MEDS: Nystatin Powder 15gm Bottle 1 APPLIC TOPICAL ×2 (04:58→20:23)
[2019-12-26] MEDS: Menthol/Lanolin/Calamine/Znox 113 GM Tube 1 APPLIC TOPICAL ×2 (04:58→20:24)
[2019-12-26 05:55] LABS: ALB/GLOB Ratio 0.8 RATIO (0.9-2.4); AST(SGOT) 24 U/L (15-37); Alanine Aminotransfer ALT/SGPT 69 U/L (13-56); Albumin, Serum 2.7 g/dL (3.2-5.0); Alkaline Phosphatase 80 U/L (45-117); Anion Gap 5 (5-15); BUN 9 mg/dL (7-18); BUN/Creat Ratio 8.4 RATIO (10-20); Calcium,Total 8.5 mg/dL (8.5-10.1); Chloride 110 mmol/L (98-107); Creatinine, Serum 1.07 mg/dL (0.55-1.02); EST Glomerular Filtration Rate 53 mL/min (>60); Est Glom Filt Rate - Afr Amer 64 mL/min (>60); Estimated Creatinine Clearance 46.18 ml/min; Globulin 3.6 g/dL (2.2-4.2); Glucose 220 mg/dL (74-106); Potassium 3.9 mmol/L (3.5-5.1); Protein, Total 6.3 g/dL (6.4-8.2); Sodium Level 141 mmol/L (136-145)
[2019-12-26 06:20] LABS: Bedside Glucose 213 mg/dL (70-110)
[2019-12-26] MEDS: Cyanocobalamin 500 MCG Tablet 1000 MCG PO (08:11)
[2019-12-26 10:00] VITALS: PULSE 56; RESP 18; O2SAT 99
[2019-12-26 11:01] LABS: Bedside Glucose 263 mg/dL (70-110)
[2019-12-26] MEDS: Glucerna Shake 120 ML LIQUID PO ×3 (11:12→20:20)
[2019-12-26] MEDS: Dext 5%-0.45% NS 1,000 ML 75 ML IV (13:23)
[2019-12-26 13:34] VITALS: BP 146/58; PULSE 58; RESP 16; TEMP 36.4; O2SAT 96
--- NOTE | 2019-12-26 15:50 | NURSING ---
Pt family called no answer at this time.
[2019-12-26 16:55] LABS: Bedside Glucose 339 mg/dL (70-110)
[2019-12-26] MEDS: Senna/Docusate Sodium 1 Tablet PO (18:05)
[2019-12-26] MEDS: Mirtazapine 15 MG Tablet 7.5 MG PO (20:20)
[2019-12-26 21:35] LABS: Bedside Glucose 367 mg/dL (70-110)
[2019-12-27 04:00] VITALS: BP 113/58; PULSE 60; RESP 14; TEMP 36.6; O2SAT 97
[2019-12-27] MEDS: Menthol/Lanolin/Calamine/Znox 113 GM Tube 1 APPLIC TOPICAL ×2 (05:05→20:06)
[2019-12-27] MEDS: Fluticasone 0.05% 1 SPRAY NASAL.SRY NASAL (05:05)
[2019-12-27] MEDS: Glucerna Shake 120 ML LIQUID PO ×3 (05:06→20:03)
[2019-12-27] MEDS: Polyethylene Glycol 3350 17 GM PACKET PO (05:06)
[2019-12-27] MEDS: Nystatin Powder 15gm Bottle 1 APPLIC TOPICAL ×2 (05:06→20:06)
[2019-12-27] MEDS: APIXABAN 5 MG TABLET PO ×2 (05:06→17:42)
[2019-12-27] MEDS: Senna/Docusate Sodium 1 Tablet PO (05:07)
[2019-12-27] MEDS: Levothyroxine 50 MCG Tablet PO (05:07)
[2019-12-27 06:31] LABS: Bedside Glucose 235 mg/dL (70-110)
[2019-12-27 11:20] LABS: Bedside Glucose 226 mg/dL (70-110)
[2019-12-27 14:09] VITALS: BP 120/69; PULSE 69; RESP 14; TEMP 36.3; O2SAT 97
--- NOTE | 2019-12-27 14:18 | CASEMGMT ---
Social Work Another attempt made to contact the son. Son answered and provided SW with history of his childhood with the pt and family dynamics. Son sated he would love for pt to be closer to him so he could be more involved, but cannot drive to [place] as his is very ill. Expressed appreciation for background on pt to understand family dynamics better. Explained pt's current functional status and diet, and pt cannot return to [facility] or another AL. Son stated for SW to contact ECFs in [facility] or [facility] for pt to be placed. Son agreeable for pt to transfer to ECF. Explained insurance with [employer] 12/27 and continued stay is not guaranteed. Referred to several facilities. Will await outcomes. MARIBELL AguiarW
--- NOTE | 2019-12-27 14:21 | NURSING ---
called made to pt family,no answer and machine to leave message did not come on.
--- NOTE | 2019-12-27 14:24 | MDS.RN ---
Information for the mds was obtained from review of the clinical record, interview of resident, staff, and direct observation of resident's care.
[2019-12-27 17:25] LABS: Bedside Glucose 261 mg/dL (70-110)
[2019-12-27 19:50] VITALS: PULSE 78; RESP 16; O2SAT 98
[2019-12-27] MEDS: Mirtazapine 15 MG Tablet 7.5 MG PO (20:04)
[2019-12-27 22:16] LABS: Bedside Glucose 362 mg/dL (70-110)
[2019-12-28 04:00] VITALS: BP 131/66; PULSE 68; RESP 18; TEMP 36.8; O2SAT 94
[2019-12-28] MEDS: Levothyroxine 50 MCG Tablet PO (05:08)
[2019-12-28] MEDS: APIXABAN 5 MG TABLET PO ×2 (05:08→17:39)
[2019-12-28] MEDS: Polyethylene Glycol 3350 17 GM PACKET PO (05:08)
[2019-12-28] MEDS: Senna/Docusate Sodium 1 Tablet PO ×2 (05:09→17:39)
[2019-12-28] MEDS: Glucerna Shake 120 ML LIQUID PO ×4 (05:12→20:58)
[2019-12-28] MEDS: Menthol/Lanolin/Calamine/Znox 113 GM Tube 1 APPLIC TOPICAL ×2 (05:14→20:55)
[2019-12-28] MEDS: Nystatin Powder 15gm Bottle 1 APPLIC TOPICAL ×2 (05:15→20:56)
[2019-12-28 06:26] LABS: Bedside Glucose 188 mg/dL (70-110)
--- NOTE | 2019-12-28 08:02 | RAD_ITS ---
STUDY: X-RAY - ABDOMEN/PELVIS REASON FOR EXAM: Female, 74 years old. ACUTE CYSTITIS, POOR APPETITE, FREQUENT FALLS, CONFUSION TECHNIQUE: Single AP view of the abdomen / pelvis. COMPARISON: Comparison is made with prior study dated December 23, 2019. FINDINGS: Normal visualized lung bases. There is a moderate amount of colonic fecal material. Dense calcifications on the right side of the midline adjacent to the transverse processes of the L2 vertebra suggestive of a calcification within the head of the pancreas. The visualized liver, spleen and kidneys are grossly normal in size and morphology. Vascular calcification. There are diffuse degenerative changes of the visualized lumbar spine. Mild levoscoliosis. RAD/Abdomen Single View (Portable) IMPRESSION: Moderate amount of fecal material in the colon. Degenerative changes of the lumbar spine with mild levoscoliosis. Calcifications on the right side of midline suggestive of calcification within the head of the pancreas. Electronically Signed: Jayro Brandon, at 12:35 EDT , Service support ,
[2019-12-28 09:45] VITALS: PULSE 62; RESP 18; O2SAT 98
[2019-12-28 11:16] LABS: Bedside Glucose 260 mg/dL (70-110)
[2019-12-28 14:12] VITALS: BP 130/64; PULSE 67; RESP 14; TEMP 36.9; O2SAT 97
--- NOTE | 2019-12-28 14:40 | NURSING ---
no new updates to report.
--- NOTE | 2019-12-28 16:12 | NURSING ---
dr padilla updated on KUB results, new order for mag citrate x1 300ml
[2019-12-28 17:26] LABS: Bedside Glucose 331 mg/dL (70-110)
[2019-12-28] MEDS: Magnesium Citrate 300 ML PO (18:28)
[2019-12-28] MEDS: Mirtazapine 15 MG Tablet 7.5 MG PO (20:53)
[2019-12-28 21:46] LABS: Bedside Glucose 298 mg/dL (70-110)
[2019-12-29 04:00] VITALS: BP 130/75; PULSE 78; RESP 16; TEMP 36.9; O2SAT 95
[2019-12-29] MEDS: Bisacodyl 5 MG Tablet 10 MG PO (04:52)
[2019-12-29] MEDS: Polyethylene Glycol 3350 17 GM PACKET PO (04:52)
[2019-12-29] MEDS: Menthol/Lanolin/Calamine/Znox 113 GM Tube 1 APPLIC TOPICAL ×2 (04:52→20:33)
[2019-12-29] MEDS: Levothyroxine 50 MCG Tablet PO (04:53)
[2019-12-29] MEDS: Nystatin Powder 15gm Bottle 1 APPLIC TOPICAL ×2 (04:53→20:34)
[2019-12-29] MEDS: APIXABAN 5 MG TABLET PO ×2 (04:53→17:29)
[2019-12-29] MEDS: Senna/Docusate Sodium 1 Tablet PO ×2 (04:53→17:29)
[2019-12-29 06:31] LABS: Bedside Glucose 307 mg/dL (70-110)
[2019-12-29] MEDS: Insulin Lispro 100 UNIT/ML INSULN.PEN 10 UNIT SC ×3 (08:26→17:28)
[2019-12-29 10:56] LABS: Bedside Glucose 216 mg/dL (70-110)
--- NOTE | 2019-12-29 11:26 | CASEMGMT ---
Addendum entered by Ada Arias 12/29/19 15:21: The son chose the [facility]. Son requesting w/c transport. Scheduled with Physician's for 2 pm 12/31. PASRR and LOC completed. Original Note: Social Work Insurance issued LCD 12/30, DC 12/31. Notified son of [place] and accepting facilities - [facility] and [facility]. Son to to decide and notify SW. Notified [facility] that pt will not be returning. Will continue to follow. Ada Arias, MARIBELL STEVENW
[2019-12-29] MEDS: Glucerna Shake 120 ML LIQUID PO ×3 (12:08→20:37)
[2019-12-29 13:36] VITALS: BP 117/69; PULSE 71; RESP 16; TEMP 36.2; O2SAT 95
--- NOTE | 2019-12-29 14:24 | MDS.RN ---
Pain interview for katerina 01/01/20 completed.
[2019-12-29 16:10] LABS: Bedside Glucose 126 mg/dL (70-110)
[2019-12-29 20:23] VITALS: PULSE 88; RESP 16; O2SAT 96
[2019-12-29] MEDS: Mirtazapine 15 MG Tablet 7.5 MG PO (20:35)
[2019-12-29 21:11] LABS: Bedside Glucose 364 mg/dL (70-110)
[2019-12-30 04:00] VITALS: BP 103/70; PULSE 75; RESP 16; TEMP 36.9; O2SAT 95
[2019-12-30] MEDS: Glucerna Shake 120 ML LIQUID PO ×4 (05:05→20:29)
[2019-12-30] MEDS: Menthol/Lanolin/Calamine/Znox 113 GM Tube 1 APPLIC TOPICAL ×2 (05:05→20:30)
[2019-12-30] MEDS: APIXABAN 5 MG TABLET PO ×2 (05:07→18:16)
[2019-12-30] MEDS: Levothyroxine 50 MCG Tablet PO (05:07)
[2019-12-30] MEDS: Polyethylene Glycol 3350 17 GM PACKET PO (05:07)
[2019-12-30] MEDS: Senna/Docusate Sodium 1 Tablet PO ×2 (05:07→18:16)
[2019-12-30] MEDS: Nystatin Powder 15gm Bottle 1 APPLIC TOPICAL ×2 (05:16→20:30)
[2019-12-30 06:15] LABS: Bedside Glucose 216 mg/dL (70-110)
[2019-12-30] MEDS: Insulin Lispro 100 UNIT/ML INSULN.PEN 10 UNIT SC ×3 (08:13→18:16)
[2019-12-30 08:15] VITALS: PULSE 82; RESP 16; O2SAT 94
[2019-12-30 11:11] LABS: Bedside Glucose 204 mg/dL (70-110)
--- NOTE | 2019-12-30 13:36 | CASEMGMT ---
Social Work BIMS and PHQ-9 completed for MDS assessment. Ada Arias, CHRISTIAN SCIENCE HEALER MILK CONDENSER
--- NOTE | 2019-12-30 13:40 | DCINST_ITS ---
- Discharge Diagnoses Current Active Problems: Current Active and Chronic Problems (Last Updated 12/15/19 @ 22:[address] Romulo Perez MD) Fall (Acute) Iron deficiency anemia (Chronic) Hypothyroidism (Chronic) Allergic rhinitis (Chronic) Overactive bladder (Chronic) Dizziness (Chronic) Nausea (Chronic) Hypokalemia (Chronic) Muscle spasm (Chronic) Atrial fibrillation (Chronic) Fecal impaction of colon (Acute) Lumbar spondylosis (Chronic) Diabetes mellitus (Chronic) Alzheimer disease (Chronic) Chronic kidney disease (Chronic) You will use the following diet at home:: No restrictions, Regular Your food should be the consistency of: Regular Your liquids should be the consistency of: Regular/Thin Discharge Activity: Return to Normal Activity, May Shower, Use Walker Weight Bearing Status: Weight bearing as tolerated Call your doctor if you observe: Fever of 101 or Higher, Inability to urinate, Inability to have a bowel movement, Shortness of breath, Chest pain, Uncontrolled pain Allergies/Adverse Reactions: Allergies colchicine Allergy (Severe, Verified 12/15/19 18:11) HIVES ALLERGY PILLS Adverse Reaction (Uncoded 12/15/19 18:11) Unknown Medications to take at Discharge Levothyroxine [Synthroid] 50 mcg PO DAILY 08/15/17 apixaban 5 mg tablet 5 mg PO BID tab 11/09/17 Donepezil HCl 10 mg PO QHS 12/19/18 Memantine HCl [Memantine HCl ER] 28 mg PO DAILY 12/20/18 Acetaminophen [Tylenol] 1,000 mg PO Q6H PRN PRN tablet 12/30/19 Bisacodyl [Dulcolax] 10 mg PO DAILY PRN tablet 12/30/19 Insulin Glargine [Lantus SoloStar Pen] 15 units SC BID pen 12/30/19 Insulin Lispro [Humalog KwikPen] 10 unit SC TIDAC insuln.pen 12/30/19 Menthol/Lanolin/Calamine/Znox [Calmoseptine Ointment] 1 applic TOPICAL 0600,2200 tube 12/30/19 Mirtazapine [Remeron] 7.5 mg PO QHS tablet 12/30/19 Nystatin Powder [Mycostatin Powder] 1 applic TOPICAL 0600,2200 bottle 12/30/19 Polyethylene Glycol 3350 [Miralax] 17 gm PO DAILY packet 12/30/19 Senna/Docusate Sodium [Senokot-S] 1 tablet PO BID tablet 12/30/19 Primary Care Physician: Jim Padgett MD [Primary Care Provider] - Please follow up with your Primary Care Physician in: 1 week. Test Results: Test results from this visit will be discussed in further detail at your follow- up appointment, if applicable. Please Follow Up With: Jim Padgett MD (PCP) Proposed Discharge Date: 01/01/20
--- NOTE | 2019-12-30 13:42 | PCM.DC.SUM ---
Discharge Date and Diagnosis - Problem List Patient Problems: Active and Suspected Problems (Last Updated 12/15/19 @ 22:[address] Romulo Perez MD) Fall (Acute) Fecal impaction of colon (Acute) Date of Admission: 12/16/19 Date of Discharge: 01/01/20 - Primary Discharge Diagnosis Acute Problems: Active Problems (Last Updated 12/15/19 @ 22:[address] Romulo Perez MD) Fall (Acute) Fecal impaction of colon (Acute) - Secondary Discharge Diagnosis Chronic Problems: Chronic Problems (Last Updated 12/15/19 @ 22:[address] Romulo Perez MD) Debility (Chronic) Iron deficiency anemia (Chronic) Hypothyroidism (Chronic) Allergic rhinitis (Chronic) Overactive bladder (Chronic) Dizziness (Chronic) Nausea (Chronic) Hypokalemia (Chronic) Muscle spasm (Chronic) Atrial fibrillation (Chronic) Lumbar spondylosis (Chronic) Diabetes mellitus (Chronic) Alzheimer disease (Chronic) Chronic kidney disease (Chronic) Dementia (Chronic) Type 2 diabetes mellitus (Chronic) Vertigo (Chronic) Paroxysmal atrial fibrillation (Chronic) LBBB (left bundle branch block) (Chronic) Chronic diastolic (congestive) heart failure (Chronic) Hyperlipidemia (Chronic) CKD (chronic kidney disease), stage III (Chronic) Hospital Course and Treatment Imaging Results: 12/26/19 09:51 Diet: Regular Diet Food consistency:: Mechanical Soft/Ground Liquid Consistency:: Regular/Thin Is pt able to select menu?: Yes Diet Comments: 1:1 direct SUPERVISION with meals, strategies listed in room Clinical Impression(s) from Imaging Studies KUB X-Ray 12/28/19 08:02 IMPRESSION: Moderate amount of fecal material in the colon. Degenerative changes of the lumbar spine with mild levoscoliosis. Calcifications on the right side of midline suggestive of calcification within the head of the pancreas. Electronically Signed: Jayro Brandon, at 12:35 EDT , Service support , Labs (Last 48 Hours) 12/28/19 12/28/19 12/29/19 17:06 21:31 06:14 POC Glucose 331 H 298 H 307 H 12/29/19 12/29/19 12/29/19 10:42 16:02 20:53 POC Glucose 216 H 126 H 364 H 12/30/19 12/30/19 05:57 10:54 POC Glucose 216 H 204 H Operations: None Procedures: None Summary of Care Provided: The patient is a 74 year old Female with below past medical history hospitalized for falls secondary to E. Coli urinary tract infection, admitted to TCU with debility, here for rehabilitation, strengthening, prior to discharge to [facility]. Discharge to [facility], intermediate level of care. No changes to original H&P. Patient Problems: Active and Suspected Problems (Last Updated 12/15/19 @ 22:[address] Romulo Perez MD) Fall (Acute) Fecal impaction of colon (Acute) - Physical Exam Vitals/I&O's: Vital Signs Temp Pulse Resp BP Pulse Ox 98.4 F 82 16 103/70 94 12/30/19 04:00 12/30/19 08:15 12/30/19 08:15 12/30/19 04:00 12/30/19 08:15 Oxygen Delivery Method Room Air Weight: 64.92 kg Body Mass Index (BMI) 32.3 Finger Stick Blood Glucose 71 Intake and Output for Last 24 Hours 12/28/19 12/29/19 12/30/19 23:59 23:59 23:59 Intake Total 680 / 680 720 / 720 360 / 360 Balance 680 / 680 720 / 720 360 / 360 Laboratory Results 12/29/19 16:02: POC Glucose 126 H 12/29/19 20:53: POC Glucose 364 H 12/30/19 05:57: POC Glucose 216 H 12/30/19 10:54: POC Glucose 204 H Current Medications Acetaminophen (Tylenol) 1,000 mg PO Q6H PRN PRN PRN Reason: Pain Score 1-1010 Last Admin: 12/21/19 00:38 Dose: 1,000 mg Documented by: Apixaban (Eliquis) 5 mg PO BID HANNAH Last Admin: 12/30/19 05:07 Dose: 5 mg Documented by: Bisacodyl (Dulcolax) 10 mg PO DAILY PRN PRN Reason: Constipation Last Admin: 12/29/19 04:52 Dose: 10 mg Documented by: Calamine/Phenol (Calmoseptine Ointment) 1 applic TOPICAL 0600,2200 [facility]; Protocol Last Admin: 12/30/19 05:05 Dose: 1 applicatio Documented by: Dextrose (D50w Syringe) 0 gm IV X1 PRN; Protocol PRN Reason: Hypoglycemia Glucagon () 1 mg IM .X1 PRN PRN Reason: Hypoglycemia Insulin Glargine (Lantus ([facility])) 15 units SC BID [facility] Last Admin: 12/30/19 06:27 Dose: 15 u Documented by: Insulin Human Lispro (Humalog Kwikpen ([facility])) 10 unit SC TIDAC [facility] Last Admin: 12/30/19 11:03 Dose: 10 units Documented by: Levothyroxine Sodium (Synthroid) 50 mcg PO DAILY [facility] Last Admin: 12/30/19 05:07 Dose: 50 mcg Documented by: Mirtazapine (Remeron) 7.5 mg PO QHS [facility] Last Admin: 12/29/19 20:35 Dose: 7.5 mg Documented by: Nutritional Formula (Lactose Free) (Glucerna Shake) 120 ml PO 4X/DAY [facility] Last Admin: 12/30/19 10:59 Dose: 120 ml Documented by: Nystatin (Mycostatin Powder) 1 applic TOPICAL 00,2200 [facility]; Protocol Last Admin: 12/30/19 05:16 Dose: 1 applicatio Documented by: Polyethylene Glycol (Miralax) 17 gm PO DAILY [facility] Last Admin: 12/30/19 05:07 Dose: 17 gm Documented by: Senna/Docusate Sodium (Senokot-S, Jolynn-Colace) 1 tablet PO BID [facility] Last Admin: 12/30/19 05:07 Dose: 1 tablet Documented by: Sodium Chloride () 10 - 40 ml IV UD PRN PRN Reason: SALINE FLUSH Last Admin: 12/18/19 05:04 Dose: 10 ml Documented by: Sodium Chloride () 10 - 40 ml IV UD PRN PRN Reason: SALINE FLUSH Discharge Diet: No Restrictions Discharge Activity: Return to Normal Activity, May Shower, Use Walker Weight Bearing Status: Weight bearing as tolerated Call your doctor if you observe: Fever of 101 or Higher, Inability to urinate, Inability to have a bowel movement, Shortness of breath, Chest pain, Uncontrolled pain Home Medications: Medications to take at Discharge Levothyroxine [Synthroid] 50 mcg PO DAILY 08/15/17 apixaban 5 mg tablet 5 mg PO BID tab 11/09/17 Donepezil HCl 10 mg PO QHS 12/19/18 Memantine HCl [Memantine HCl ER] 28 mg PO DAILY 12/20/18 Acetaminophen [Tylenol] 1,000 mg PO Q6H PRN PRN tablet 12/30/19 Bisacodyl [Dulcolax] 10 mg PO DAILY PRN tablet 12/30/19 Insulin Glargine [Lantus SoloStar Pen] 15 units SC BID pen 12/30/19 Insulin Lispro [Humalog KwikPen] 10 unit SC TIDAC insuln.pen 12/30/19 Menthol/Lanolin/Calamine/Znox [Calmoseptine Ointment] 1 applic TOPICAL 0600,2200 tube 12/30/19 Mirtazapine [Remeron] 7.5 mg PO QHS tablet 12/30/19 Nystatin Powder [Mycostatin Powder] 1 applic TOPICAL 0600,2200 bottle 12/30/19 Polyethylene Glycol 3350 [Miralax] 17 gm PO DAILY packet 12/30/19 Senna/Docusate Sodium [Senokot-S] 1 tablet PO BID tablet 12/30/19 Primary Care Physician: Jim Padgett MD [Primary Care Provider] - Please follow up with your Primary Care Physician in: As needed, resident transferring to [place], [place]. Please Follow Up With: Jim Padgett MD (PCP) Disposition: Asstd Living/Non-Skill MD Minutes spent on discharge:: 35 Patient Condition:: Stable Medical Necessity - Tobacco Use Smoking Status: Never smoker Tobacco Use: Non-smoker Meaningful Use Info Meaningful Use Diagnoses (Choose all that apply): None applicable
--- NOTE | 2019-12-30 13:44 | TREXTCAR_ITS ---
- Diet 12/26/19 09:51 Diet: Regular Diet Food consistency:: Mechanical Soft/Ground Liquid Consistency:: Regular/Thin Is pt able to select menu?: Yes Diet Comments: 1:1 direct SUPERVISION with meals, strategies listed in room - Routine Orders/Code Status Suppository Type: Dulcolax 10mg Suppository Frequency: Daily PRN Code Status: Full Code - Therapies Weight Bearing: Weight bearing as tolerated Extremity Affected:: Bilateral Lower - Problem/Diagnosis (1) Fall Status: Acute Current Visit: Yes (2) Iron deficiency anemia Status: Chronic Current Visit: Yes (3) Hypothyroidism Status: Chronic Current Visit: Yes (4) Allergic rhinitis Status: Chronic Current Visit: Yes (5) Overactive bladder Status: Chronic Current Visit: Yes (6) Dizziness Status: Chronic Current Visit: Yes (7) Nausea Status: Chronic Current Visit: Yes (8) Hypokalemia Status: Chronic Current Visit: Yes (9) Muscle spasm Status: Chronic Current Visit: Yes (10) Atrial fibrillation Status: Chronic Current Visit: Yes (11) Fecal impaction of colon Status: Acute Current Visit: Yes (12) Lumbar spondylosis Status: Chronic Current Visit: Yes (13) Diabetes mellitus Status: Chronic Current Visit: Yes (14) Alzheimer disease Status: Chronic Current Visit: Yes (15) Chronic kidney disease Status: Chronic Current Visit: Yes (16) UTI (urinary tract infection) Status: Acute Current Visit: No (17) Debility Status: Chronic Current Visit: No (18) Chronic diastolic (congestive) heart failure Status: Chronic Current Visit: No (19) Hyperlipidemia Status: Chronic Current Visit: No - Allergies/Procedures Done in Hospital Allergies/Adverse Reactions: Allergies colchicine Allergy (Severe, Verified 12/15/19 18:11) HIVES ALLERGY PILLS Adverse Reaction (Uncoded 12/15/19 18:11) Unknown - Type of Care/Length of Stay Estimated LOS: More Than 30 Days Type of Care Needed: Intermediate Rehab Potential: Good Prognosis: Fair - Additional Orders/Day of Discharge H&P will serve as current which was dated: 12/16/19 - No changes to original H&P. Day of Discharge: 01/01/20 - Dietary and Speech Recommendations Dietitian Recommendations/Changes: Will liberalize diet to Regular puree d/t res poor po intake. Will add ensure pudding w/ lunch and dinner d/t variable po intake and wt loss since adm. Rec continue appetite stimulant. Will add glucerna shake between meals for increased nutrition if consumed. Speech Linguistic Eval Summary: Administered Brief Cognitive Rating Scale (BCRS) to assess concentration, short term memory, termite control service representative memory, orientation, and self-care abilities. Pt scored 25, indicating pt is currently performing in Stage 5.0 on Global Deterioration Scale (GDS): moderate-severe cognitive decline. Pt has mod/sev deficits with basic problem solving and poor attention and short term memory. At this stage, pt has capacity of retaining new information for up to 5 minutes, but will have difficulty generalizing information. Pt will benefit from extended time to process information, environmental modifications to improve concentration, visual aids to improve recall, and one step directions when completing more complicated tasks. BCRS score of 25 consistent with [place] Level 3. - Follow Up Care Primary Care Physician: Jim Padgett MD [Primary Care Provider] - Please follow up with your Primary Care Physician in: As needed, resident transferring to [place], [place]. Please Follow Up With: Jim Padgett MD (PCP)
[2019-12-30 14:18] VITALS: BP 105/74; PULSE 81; RESP 16; TEMP 36.5; O2SAT 98
[2019-12-30 16:51] LABS: Bedside Glucose 166 mg/dL (70-110)
[2019-12-30] MEDS: Mirtazapine 15 MG Tablet 7.5 MG PO (20:28)
[2019-12-30 21:45] LABS: Bedside Glucose 221 mg/dL (70-110)
[2019-12-31] MEDS: Polyethylene Glycol 3350 17 GM PACKET PO (05:52)
[2019-12-31] MEDS: Glucerna Shake 120 ML LIQUID PO ×4 (05:53→20:18)
[2019-12-31] MEDS: Levothyroxine 50 MCG Tablet PO (05:53)
[2019-12-31] MEDS: Senna/Docusate Sodium 1 Tablet PO ×2 (05:53→17:37)
[2019-12-31] MEDS: APIXABAN 5 MG TABLET PO ×2 (05:53→17:37)
[2019-12-31 05:57] VITALS: BP 122/65; PULSE 71; RESP 16; TEMP 36.7; O2SAT 96
[2019-12-31] MEDS: Menthol/Lanolin/Calamine/Znox 113 GM Tube 1 APPLIC TOPICAL ×2 (05:57→20:20)
[2019-12-31] MEDS: Nystatin Powder 15gm Bottle 1 APPLIC TOPICAL ×2 (05:59→20:19)
[2019-12-31 06:11] LABS: Bedside Glucose 180 mg/dL (70-110)
[2019-12-31] MEDS: Insulin Lispro 100 UNIT/ML INSULN.PEN 10 UNIT SC ×3 (07:45→17:38)
[2019-12-31 07:56] LABS: Absolute Lymphocyte Count 1.64 X10^3/uL (0.83-4.51); Absolute Neutrophil Count 4.8 X10^3/uL (2.0-7.7); Basophil# 0.03 X10^3/uL; Basophil% 0.4 % (0-1); Eosinophil# 0.26 X10^3/uL; Eosinophils% 3.6 % (0-5); Hematocrit 44.2 % (37-47); Hemoglobin 14.3 g/dL (12.0-15.0); Lymphocyte # 1.64 X10^3/ul (4.0); Lymphocyte % 22.8 % (19-41); Mean Corp Hgb Conc 32.4 g/dL (32-36); Mean Corpuscular Hgb 32.4 pg (27.0-32.0); Mean Corpuscular Volume 100.2 fL (81-99); Mean Platelet Vol. 12.6 fl (6.2-12.0); Monocyte# 0.39 X10^3/uL; Monocyte% 5.4 % (0-10); NRBC Flagged by Analyzer 0 % (0-5); Neutrophil # 4.83 X10^3/uL (2.7-7.7); Neutrophil % 67.2 % (47-70); Platelet Count 180 K/mm3 (150-450); RBC Distribution Width CV 12.3 % (11.6-14.6); RBC Distribution Width SD 45.4 fl (35.1-43.9); Red Blood Count 4.41 M/mm3 (4.2-5.4); White Blood Count 7.2 K/mm3 (4.4-11.0)
[2019-12-31 08:11] LABS: Anion Gap 7 (5-15); BUN 23 mg/dL (7-18); BUN/Creat Ratio 20.5 RATIO (10-20); Calcium,Total 8.9 mg/dL (8.5-10.1); Chloride 106 mmol/L (98-107); Creatinine, Serum 1.12 mg/dL (0.55-1.02); EST Glomerular Filtration Rate 50 mL/min (>60); Est Glom Filt Rate - Afr Amer 61 mL/min (>60); Glucose 193 mg/dL (74-106); Potassium 3.8 mmol/L (3.5-5.1); Sodium Level 138 mmol/L (136-145)
[2019-12-31 11:16] LABS: Bedside Glucose 170 mg/dL (70-110)
[2019-12-31 14:19] VITALS: BP 115/52; PULSE 88; RESP 16; TEMP 36.8; O2SAT 94
[2019-12-31 17:16] LABS: Bedside Glucose 227 mg/dL (70-110)
[2019-12-31 20:17] VITALS: PULSE 70; RESP 16; O2SAT 94
[2019-12-31] MEDS: Mirtazapine 15 MG Tablet 7.5 MG PO (20:18)
[2019-12-31 21:36] LABS: Bedside Glucose 159 mg/dL (70-110)
[2020-01-01 04:00] VITALS: RESP 16; O2SAT 94
[2020-01-01 06:21] LABS: Bedside Glucose 126 mg/dL (70-110)
[2020-01-01] MEDS: Senna/Docusate Sodium 1 Tablet PO (06:24)
[2020-01-01] MEDS: Levothyroxine 50 MCG Tablet PO (06:24)
[2020-01-01] MEDS: APIXABAN 5 MG TABLET PO (06:24)
[2020-01-01] MEDS: Polyethylene Glycol 3350 17 GM PACKET PO (06:26)
[2020-01-01] MEDS: Glucerna Shake 120 ML LIQUID PO ×2 (06:29→11:46)
[2020-01-01] MEDS: Menthol/Lanolin/Calamine/Znox 113 GM Tube 1 APPLIC TOPICAL (06:29)
[2020-01-01 06:30] VITALS: BP 130/78; PULSE 76; RESP 16; TEMP 36.3; O2SAT 94
[2020-01-01] MEDS: Nystatin Powder 15gm Bottle 1 APPLIC TOPICAL (06:30)
[2020-01-01] MEDS: Insulin Lispro 100 UNIT/ML INSULN.PEN 10 UNIT SC ×2 (07:50→11:47)
[2020-01-01 11:16] LABS: Bedside Glucose 227 mg/dL (70-110)
[2020-01-01 13:00] VITALS: BP 127/67; PULSE 88; RESP 14; TEMP 36.6; O2SAT 98
--- OUTSIDE RECORDS SUMMARY | 2020-05-01 19:27 | XMS RPT_ITS | CCD ---
:1945 External Reference #:[id number] Author Organization [facility] Care Team Providers Name Role Phone KAITLIN, E Unavailable Unavailable IWLLS, J Unavailable Unavailable KAITLIN, E Unavailable Unavailable [...] Onset Location colchicine Translations: AOF 11-13-2011 - [facility] Other [ COLCHICINE, COLCHICINE] Ca mpus Repository Problems Active Problems Category Problem Name Status Date Location Cardiac dysrhythmias Paroxysmal atrial Active 02-06-2017 - [facility] Health fibrillation System (43398) Conduction disorders Left bundle-branch Active 08-14-2017 - [facility] block, unspecified Medical C enter (49646) Congestive heart Heart failure, Active 02-06-2017 - [facility] lt failure; nonhypertensive unspecified Sys tem (50539) Coronary atherosclerosis Atherosclerotic heart Active 017 - [facility] Health and other heart disease disease of [place] System (43548) coronary artery without angina pectoris Delirium, dementia Vascular dementia with Active 01-23-2017 [facility] amnestic and other behavioral disturbance System (68497) cognitive disorders Diabetes mellitus with Type 2 diabetes mellitus Active 2016 [facility] Health complications with unspecified System (00 000) complications Diabetes mellitus Type 2 diabetes mellitus Active 02-06-2017 [facility] Health without complication without complications System (34140) Genitourinary symptoms Encounter for fitting Active [facility] Health and ill-defined and adjustment of System (48392) conditions urinary device Heart valve disorders Nonrheumatic mitral Active 02-06-2017 [facility] Health (valve) insufficiency System (41713) Hypertension with Hypertensive heart Active 01-23-2017 [facility] Health complications and disease with heart Syst em (08519) secondary hypertension failure Mood disorders Major depressive Active 02-18-2017 [facility] disorder, single System (000 00) episode, unspecified Nutritional deficiencies Vitamin D deficiency, Active [facility] Health unspecified System (34481) Osteoarthritis Unspecified Active 02-06-2017 [facility] osteoarthritis, System (0000 0) unspecified site Other nervous system Other symptoms and signs Active 01-24-20 [facility] Health disorders involving cognitive System ( 18799) functions and awareness Thyroid disorders Hypothyroidism, Active 02-19-2017 [facility] ealth unspecified System (00783) Past or Other Problems Category Problem Name Status Date Location Administrative/social Homelessness Completed 02-19-2017 [facility] Health admission System (48001) Allergic reactions Allergy status to Completed 02-06-2017 [facility] Health other drugs, System (09889) medicaments and biological substances status Calculus of urinary Calculus of ureter Completed 01-22-2017 [facility] Health tract System (53328) Malaise and fatigue Other malaise Completed 02-19-2017 [facility] H ealth System (59891) Other aftercare group home (current) Completed 02-19-2017 [facility] use of insulin System (99799 ) Other connective Other specified soft Completed 02-06-2017 [facility] tissue disease tissue disorders System (0 0000) Pulmonary heart Other pulmonary Completed 02-18-2017 [facility] disease embolism without acute Syste m (93009) cor pulmonale Unclassified Edema, unspecified Completed 01-23-2017 - [place] [facility] System (60962) Results Result Name Value Range Unit Interpretation Flag Date Location urine culture on 07-03-02 Bacteria identified Sp. Request/Comment: - Presu rgical Sterilization Specimen received in preservative Normal 02-18-2019 [facility] Cx Nom (U) Chauhan (86243) Culture Result - No growth (<100 CFU/ml) Comment: Performed By: #### URCUL ### #[facility] [address] [place], [place] [phone] progress on 2019-02 PROGRESS HNO ID: [id number] Normal 02-18-2019 [facility] Author: Jakub Aranda) Ania [place] ([id number]) Service: ? Author Type: Physician Lining Machine Operator Type: Progress Notes Filed: 02/22/2019 7:51 PM Note Text: [facility] [place] PATIENT INFO: Abbey Resendiz 73 year old CCF # [id number] PCP: Jony Wills MD Referred by: Self [...] prob lems. No history of angina, CHF, AK, cardiac surgery of stents. Respiratory: Negative for [...] s. Neurologic: No history of TIA's, stroke, HOME VISITOR tumor, impaired sensorium, hemiplegia, paraplegia or quadriplegia. [...] CNOV Office Visit (UROLWS) Normal 02-19-20 19 [facility] ABBEY RESENDIZ ([id number]) 1945 F [place] Date Time Provider Department (27625) 02/18/19 9:30 AM JAKUB ESTRELLA) UROLWS During your visit today, we recorded the following informati on about you: Pulse Blood pressure Weight Height 54/minute 145/87 78 kg 1.524 m GERMAIN Magdaleno 02/22/2019 7:51 PM Signed [facility] [place] PATIENT INFO: Abbey Resendiz 73 year old [facility] # [id number] PCP: Jony Wills MD Referred by: Self [...] prob lems. No history of angina, CHF, AK, cardiac surgery of stents. Respiratory: Negative for [...] s. Neurologic: No history of TIA's, stroke, HOME VISITOR tumor, impaired sensorium, hemiplegia, paraplegia or quadriplegia. [...] Diagnosis:Recurrent UTI [N39.0] Order(s):UA DIP, URINE (POC) [2300122] Order #: [id number] . #:[id number] [] sulfamethoxazole-trimethoprim (BACTRIM DS) 800-160 mg per tabletTake 1 tablet by mouth twice daily for 3 days.Disp: 6 tabletRfl: 0 URINE CULTURE [SQURCUL] Order #: [id number] FUTURE Prescriptions as of 02/18/2019 Sig: FLONASE [...] 02/22/19 progress on 2018-11 PROGRESS HNO ID: [id number] Normal 12-15-2018 [facility] Author: Lawson Chauhan ([id number]) Service: ? Author Type: Physician Type: Progress Notes Filed: 12/15/2018 2:05 PM Note Text: PERTINENT CARDIAC HISTORY LBBB HTN HL DM PAF? ASHD? CHF? ADHERENCE TO GUIDELINES SONIA-I or ARB for HF with prior LVEF<40 (NQF 0081) - N/A ASA or Plavix for ASHD (NQF 0067) - N/A Beta zara for ASHD with prior AK or prior LVEF<40 (NQF 00 70) - [...] checked. She would like to follow-up with [facility] and we will assist her [...] EKG1 NAME : ABBEY RESENDIZ Normal 12-16-19 [facility] PID : [id number] Vic aparicio ([id number]) : 1945 Gender : Female Race : [...] ms QTC Calculation(Bezet) : 501 ms P Norton : 22 degrees R Norton : -43 degrees T Norton : 107 degrees Test Reason : Location : 136 : [facility] Overread By : LAWSON MADRIGAL MD Edited By : LAWSON MADRIGAL MD Referred By : LAWSON MADRIGAL Acquired by : jyoti ÁLVAREZ on 2018-12-15 CNOV Office Visit (CAWSTR) Normal 12-16-[address] [place] [facility] ABBEY RESENDIZ ([id number]) 1945 F [facility] Time Provider Department (51969) 12/15/18 2:00 PM LAWSON MADRIGAL E CAWSTR [...] N/A Beta zara for ASHD with prior AK or prior LVEF<40 (NQF 00 70) - [...] checked. She would like to follow-up with [facility] and we will assist her [...] in your area. Referring Provider: LAWSON MADRIGAL [[id number]] Allergies As of Date: 12/15/2018 Noted Allergy Reaction COLCHICINE 11/13/2011 8 - GI Upset Date Reviewed: 12/15/2018 Reviewed by: Jose Cummings RN - Fully Assessed Reason for Visit: Recheck [92] Primary Visit Diagnosis:PAF (paroxysmal atrial fibrillation) (HCC) [I48.0] Other Visit Diagnosis:ASHD (arteriosclerotic heart disease) [I25.10] Order(s):ECG COMPLETE [ECG01] Order #: [id number] FUTURE BASIC METABOLIC PNL [SQBMP] Order #: [id number] FUTURE Prescriptions as of 12/15/2018 Sig: ATORVASTATIN [...] LAWSON MADRIGAL MD on 12/15/18 cnnurse on [facility] Nurse Visit (CAWSTR) Normal 9 [place] ABBEY Rodriguez ([id number]) 1945 F [place] Date Time Provider Department (27744) 12/15/18 4:00 PM NURSE CARD ADMIN [facility] WSTR CAWSTR During your visit today, we recorded the following informati on about you: Jose Cummings RN 12/15/2018 3:38 PM Signed Ekg completed per order. Pt tolerated procedure without dist ress. Jose Cummings RN Referring Provider: LAWSON MADRIGAL [[id number]] Allergies As of Date: 12/15/2018 Noted Allergy Reaction COLCHICINE 11/13/2011 8 - GI Upset Date Reviewed: 12/15/2018 Reviewed by: Jose Cummings RN - Fully Assessed Reason for Visit: Nurse Visit [792] Visit Diagnoses:PAF (paroxysmal atrial fibrillation) (HCC) [ I48.0] ASHD (arteriosclerotic heart disease) [I25.10] Order(s):ECG COMPLETE [ECG01] Order #: [id number] Prescriptions as of 12/15/2018 Sig: ATORVASTATIN 40 [...] TSH Qn 2.240 0.400-5.500 uU/mL Normal 06-21-2018 [place] (70944) Comment: Performed By: #### TSH #### [facility] [address] [place], [place] [address] progress on 2018-06 PROGRESS HNO ID: [id number] Normal 06-21-2018 [facility] Author: Lawson Madrigal [place] ([id number]) Service: (none) Author Type: Physician Type: Progress Notes Filed: 06/21/2018 4:11 PM Note Text: PERTINENT CARDIAC HISTORY BBB HTN HL DM PAF? ASHD? CHF? ADHERENCE TO GUIDELINES SONIA-I or ARB for HF with prior LVEF<40 (NQF 0081) - N/A ASA or Plavix for ASHD (NQF 0067) - N/A Beta zara for ASHD with prior AK or prior LVEF<40 (NQF 00 70) - [...] - lifestyle recommendation form CLINICAL IMPRESSION/PLAN: Abbey Rseendiz has stable cardiac disease. There is no [...] Magnesium [Mass/Vol] 1.7 1.7-2.3 mg/dL Normal 8 [facility] [place] [facility] (33654) cnov on 2018-06-21 CNOV Office Visit (CAWSTR) Normal 06-21-[address] [place] [facility] ABBEY RESENDIZ ([id number]) 1945 F [place] Date Time Provider Department (05220) 06/21/18 1:45 PM LAWSON MADRIGAL CAWSTR During [...] N/A Beta zara for ASHD with prior AK or prior LVEF<40 (NQF 00 70) - [...] followi ng areas and commit to making shelter changes. EAT A WHOLE FOOD, PLANT BASED [...] in your area. Referring Provider: LAWSON MADRIGAL [[id number]] Allergies As of Date: 06/21/2018 Noted Allergy Reaction COLCHICINE 11/13/2011 8 - GI Upset Date Reviewed: 06/21/2018 Reviewed by: Tressa Ontiveros MA - Fully Assessed Reason for Visit: Established Patient [175] Primary Visit Diagnosis:PAF (paroxysmal atrial fibrillation) (HCC) [I48.0] Other Visit Diagnosis:Essential hypertension [I10] Order(s):BASIC METABOLIC PNL [SQBMP] Order #: [id number] FUT URE TSH BLD [SQTSH] Order #: [id number] FUTURE Prescriptions as of 06/21/2018 Sig: ATORVASTATIN [...] the following areas and commit to making shelter changes. EAT A WHOLE FOOD, PLANT BASED [...] 2018-06-21 Absolute nRBC <0.01 <0.01 Normal 06-21-2018 [facility] (76351) Comment: Performed By: #### CBC #### [facility] [address] [place], [place] [address] Erythrocyte distribution 13.2 11.5-15.0 % Normal 06-21 [facility] width (RBC) [Ratio] [place] (63502) Comment: Performed By: #### CBC #### [facility] [address] [place], [place] [address] Hematocrit (Bld) [Volume 43.5 36.0-46.0 % Normal 06-21 [facility] (21916) Comment: Performed By: #### CBC #### [facility] [address] [place] [address] Hemoglobin (Bld) 14.4 11.5-15.5 g/dL Normal 06-21-2018 Cl [facility] [Mass/Vol] [place] (12268) Comment: Performed By: #### CBC #### [facility] [address] [place] [address] MCH (RBC) [Entitic mass] 33.0 26.0-34.0 pG Normal 06-21 [facility] [place] [facility] (27219) Comment: Performed By: #### CBC #### [address] [address] MCHC (RBC) [Mass/Vol] 33.1 30.5-36.0 g/dL Normal 06-21-20 18 [facility] [place] [facility] (69513) Comment: Performed By: #### CBC #### [address] [address] MCV (RBC) [Entitic vol] 99.8 80.0-100.0 fL Normal 06-21 [facility] [place] [facility] (79643) Comment: Performed By: #### CBC #### [facility] [address] [place] [address] Platelet mean volume 12.3 9.0-12.7 fL Normal 8 [facility] (Bld) [Entitic vol] [place] (64668) Comment: Performed By: #### CBC #### [facility] [address] [place] [address] Platelets (Bld) [#/Vol] 194 150-400 k/uL Normal 2017 [facility] [place] [facility] (51991) Comment: Performed By: #### CBC #### [facility] [address] [place], [place] [id number] RBC (Bld) [#/Vol] 4.36 3.90-5.20 m/uL Normal 06-21-2018 [facility] (22047) Comment: Performed By: #### CBC #### [facility] [address] [place] [address] WBC (Bld) [#/Vol] 8.37 3.70-11.00 k/uL Normal 06-21-2018 [facility] [place] [facility] (48245) Comment: Performed By: #### CBC #### [facility] [address] [place], [place] [address] basic metabolic panl on 2018-06-21 Anion gap [Moles/Vol] 12 mmol/L Normal 06-21-20 18 [facility] [place] [facility] (59191) Calcium [Mass/Vol] 9.6 8.5-10.2 mg/dL Normal 06-21-2018 [facility] [place] [facility] (38658) Chloride [Moles/Vol] 100 97-105 mmol/L Normal 8 [facility] [place] [facility] (34856) CO2 [Moles/Vol] 23 22-30 mmol/L Normal 06-21-2018 [facility] (81782) Creatinine [Mass/Vol] 0.97 0.58-0.96 mg/dL High 06-21-20 18 [facility] [place] [facility] (03540) eGFR- Amer. >60 Normal 06-21-2018 [facility] [place] [facility] (42415) GFR/1.73 sq M predicted 56 . Normal 2017 [facility] among non-blacks MDRD [place] (75669) (S/P/Bld) [Vol rate/Area] Comment: Result Comment: eGFR [...] Glucose [Mass/Vol] 314 74-99 mg/dL High 06-21-2018 [facility] [place] [facility] (33140) Potassium [Moles/Vol] 3.9 3.7-5.1 mmol/L Normal 06-21-20 18 [facility] [place] [facility] (58548) Sodium [Moles/Vol] 135 136-144 mmol/L Low 06-21-2018 [facility] [place] [facility] (31940) Urea nitrogen [Mass/Vol] 20 7-21 mg/dL Normal 06-21 [facility] [place] [facility] (43587) progress on 2017-11 PROGRESS HNO ID: [id number]: Lawson jang 12-04-2017 Marni Chan: (none)Author Type: General PhysicianType: Progress NotesFiled: Medical 12/04/2017 5:18 PMNote Text:PERTINENT CARDIAC Center HISTORYLBBBHTNHLDMPAF?ASHD?CHF?ADHERENCE TO (24386) GUIDELINESACE-I or ARB for HF with prior LVEF<40 (NQF 0081) - N/AASA or Plavix for ASHD (NQF 0067) - N/ABeta zara for ASHD with prior AK or prior LVEF<40 (NQF 0070) - N/ABeta [...] valvular disease.Laboratory studies were performed at the senior care. She was advised toincrease her fluid intake. Follow-up basic profile is pending.Electronically Signed:Sera Parrish 2017 4:29 PMCC: Jony Wills MD cnov on 2017-12-04 CNOV Office Visit Normal 12-04-2017 Marni (AGCARDWST) ABBEY RESENDIZ ([id number]) 1945 F Date Time Provider Department12/04/17 3:00 PM LAWSON MADRIGAL [facility] During your visit today, we recorded the following information about you: Pulse Blood pressure Weight Cente r 62/minute 138/82 77.9 kgKenn freddy Madrigal MD 12/04/2017 5:18 PM SignedPERTINENT CARDIAC (54015) HISTORYLBBBHTNHLDMPAF?ASHD?C HF?ADHERENCE TO GUIDELINESACE-I or ARB for HF with prior LVEF<40 (NQF 0081) - N/AASA or Plavix for ASHD (N QF 0067) - N/ABeta zara for ASHD with prior AK or prior LVEF<40 (NQF 0070) - N/ABeta [...] to Continue Her Current Medication in the [place] antime.I Will See Her in 8 Months [...] valvular disease.Laboratory studies were performed at the [facility]. She was advised toincrease her fluid [...] programs in your area.Referring Provider: LAWSON POPE [10647]Allergies As of Date: 12/04/2017 Noted Allergy ReactionCOLCHICINE [...] area.Follow-up and Dispositi on History RecordedEncounter Number: [id number] Status:Closed by LAWSON MADRIGAL MD on 12/04/17 progress on 2017-07 PROGRESS HNO ID: [id number]: Lawson jang 08-14-2017 Marni Chan: (none)Author Type: General PhysicianType: Progress NotesFiled: Medical 08/14/2017 5:58 PMNote Text:PERTINENT CARDIAC Center HISTORYLBBBHTNHLDMPAF?ASHD?CHF?ADHERENCE TO (88827) GUIDELINESACE-I or ARB for HF with prior LVEF<40 (NQF 0081) - N/AASA or Plavix for ASHD (NQF 0067) - N/ABeta zara for ASHD with prior AK or prior LVEF<40 (NQF 0070) - N/ABeta [...] of this note will be sent to [facility].Written and verbal health teaching given to patient, patient verbalizesunderstanding and agrees with treatment plan.This note was generated using [employer] voice recognition system, and theremay be some incorrect words, spellings, and punctuation that were notnoted in checking the note before saving.DIAGNOSIS FOR VISIT:CardiomegalyHISTORY OF PRESENT ILLNESSAbbey Resendiz is a 71-year-old woman who was seen in the office todayat the request of a nurse practitioner at [facility], who reports that she has cardiomegaly. No [...] year but states that she lives in [facility] [facility] cannot give me her address. She knows her date of ..Musculoskeletal: No joint deformities.EKG shows sinus rhythm with left bundle branch block. No prior EKGs areavailable.No recent labs are available. Prior LDL was 93 and renal function was lownormal.Electronically Signed:Lawson Madrigal MDAugust 14, 2017 5:48 [facility] Jony Wills MD cnov on 2017-08-14 CNOV Office Visit Normal 08-14-2017 Marni (AGCARDWST) ABBEY RESENDIZ ([id number]) 1945 F Date Time Provider Department08/14/17 1:00 PM LAWSON MADRIGAL [facility] During your visit today, we recorded the following information about you: Pulse Blood pressure Weight Cente r Height 80/minute 114/72 74.6 kg 1.524 Feliciano Madrigal MD 08/14/2017 5:58 PM SignedPERTINENT CARDIAC () HISTORYLBBBHTNHLDMPAF?ASHD?C HF?ADHERENCE TO GUIDELINESACE-I or ARB for HF with prior LVEFANDlt;40 (NQF 0081) - N/AASA or Plavix for ASHD (NQF 0067) - N/ABeta zara for ASHD with prior AK or prior LVEFANDlt;40 (NQF 0070) - N/ [...] of this note will be sent to [facility].Wri tten and verbal health teaching given to patient, patient verbalizesunderstanding and agrees with treatment plan.This note was generated using [employer] voice recognition system, and ther e may besome incorrect words, spellings, and punctuation that were not noted inchecking the note before s franci.DIAGNOSIS FOR VISIT:CardiomegalyHISTORY OF PRESENT ILLNESSAbbey Resendiz is a 71-year-old woma n who [facility] assisted dee woodward, [employer] that [...] year but states that she lives in [facility] cannot give me her address. She [...] to Dr. Wills's office.Referring Provider: JONY PACHECO [[id number]]Allergies As of Date: 08/14/2017 Noted Allergy ReactionCOLCHICINE 2 8 - GI UpsetDate Reviewed: 08/14/2017Reviewed by: Josafat (Rn) MIKAYLA Ames - Fully AssessedReason for Vis it: New Patient [172]Primary Visit Diagnosis:LBBB (left bundle branch block) [I44.7]Order(s):ECG B/O W IN TERP (MED OFFICE) [ECG06] Order #: [id number] ECHO [858093] Order #: [id number]: 1 FUTURE BASI C METABOLIC PNL [SQBMP] Order #: [id number] FUTURE CBC [SQCBC] Order #: [id number] FUTURE TSH BLD [S QTSH] Order #: [id number] FUTURE MAGNESIUM BLD [SQMG1] Order #: [id number] FUTUREPrescriptions as of Sig: FERROUS SULFATE 325 [...] following areas and comm it to making shelter changes. EAT A WHOLE FOOD, PLANT BASED [...] filed during this visit:Extended VitalsEncount er Number: [id number] Status:Closed by LAWSON MADRIGAL MD on 08/14/17 glucose,bedside on 2017-02-07 Glucose mass conc 107 70-100 mg/dL High 02-07-2017 [facility] (22565) Comment: Result Comment: Test perform ed by glucose meter. Results may be 10%-15% lowerthan serum/plasma value s. (CLIA ID [id number]) Performed By: #### HEMDF, PT /AP, CMP3, TSH4, B12, BNP3, RPR ####[address] [address] echo complete w/wo contrast on 2017-02-07 Echo Patient Name: ABBEY RESENDIZ [id number] Normal 02-07-2017 [facility] Complete Ultrasound Exam Date/T elyssa 02/07/2017 09:59:54 EDT Exam Echo Complete Health w/wo w/wo Contrast Ordering Physician MD WHYTE LORI Accession Number System Contrast [id number] Reason For Exam pulmonary embolus Report TRANSTHORACIC (59955) ECHOCARDIOGRAM PATIENT: Abbey Resendiz STUDY DATE: 2016 : 1945 [id number] AGE: 71 HT/WT: 152.4 cm (60 66.7 kg (146.7 in) lb) GENDER: F BP: 1 LOCATION: [facility] PATIENT Outpatient [facility] STATUS: *ORDERING PHYSICIAN: * Kandice Whyte *READING PHYSICIAN: * Arthur hendrickson MD *BARREL RIB MATTING MACHINE OPERATOR: * Edgar Antunez --- INDICATIONS: Pulmonary embolism. [...] Bilirubin Patient Name: ABBEY RESENDIZ FIN: [id number] Normal 02-06-2017 [facility] (total) Ultrasound Exam Date/Time 02/06/2017 10:43 :01 EDT Exam VL Venous Health Duplex US Lower Ext Bilateral Ordering Physician JENNY TSANG , Unfold Accession Number [id number] CPT4 Codes 28118 () Reason Fo r Exam edema, (50031) pain, elevated d-dimer Report [facility] --- Lower Extremity Venous Duplex Report Patient Name: Abbey Oliveros : 1945 Study 02/06/2017 (71yrs) Date: Age: 71 Account: [id number] Gender: F Loc: [facility] 9[facility] BP: Ordering: Nolvia Tsang Technologist: Antonio Lao n: Nolvia Tsang Public Service Director: Neli Shaw hysician: Safia Cloud --- Location: [facility] INDICATIONS: Edema b ilateral ankle and foot. [...] lower [facility] Birth[facility]: Patient birthdate: 1945. Age: Patient is 71 yr old. Sex: Gender: female. Ethnicity: Ethnicity: white. Doppler flow [facility] including spectral analysis, color and solis scale imaging. Patient sta tus: Observation. Procedure: A vascular evaluation was perf ormed. The images were obtained using a [employer] E9 vascular ultrasound machine. --- VENOUS FLOW [...] +------ --+ Electronically signed by: Safia Cloud [id number]: 45 Final Dictated: 02/06/2017 10:57 am Dictating Physicia n: SAFIA CLOUD Signed Date and Time: 02/06/2017 10:56 am Signed by: SAFIA CLOUD urinalysis,microscopic on 2017-02-06 Urine, bacteria in Few (1-5) Negative Normal 02-06-2017 [facility] sediment (14492) Comment: Performed By: #### HEMDF, PT /AP, CMP3, TSH4, B12, BNP3, RPR ####[place] [address] [place] [address] Urine, epithelial cells in 0-2 3-5 Normal [facility] (37190) sediment Comment: Performed By: #### HEMDF, PT /AP, CMP3, TSH4, B12, BNP3, RPR ####[place] [address] [place] [address] Urine, erythrocytes in Negative 0-2 /[HPF] Normal 017 [facility] sediment by area (00 000) Comment: Performed By: #### HEMDF, PT /AP, CMP3, TSH4, B12, BNP3, RPR ####[place] [address] [place] [address] Urine, leukocytes in 11-25 0-5 Normal 7 [facility] sedmiment (27462) Comment: Performed By: #### HEMDF, PT /AP, CMP3, TSH4, B12, BNP3, RPR ####[place] [address] [place] [address] Urine, yeast presence in Few (1-5) Negative Normal 02-06 [facility] sediment (83413) Comment: Performed By: #### HEMDF, PT /AP, CMP3, TSH4, B12, BNP3, RPR ####[place] [address] [place] [address] urinalysis,macro on 2017-02-06 Bilirubin (direct) NEG Negative mg/dL Normal 02-06-2017 [facility] (86787) Comment: Performed By: #### HEMDF, PT /AP, CMP3, TSH4, B12, BNP3, RPR ####[place] [address] [place] [address] Ketone,Urine NEG Negative Normal 02-06-2017 [facility] ([id number]) Comment: Performed By: #### HEMDF, PT /AP, CMP3, TSH4, B12, BNP3, RPR ####[place] [address] [place] [address] Occult Blood,Ur NEG Negative Normal 02-06-2017 [facility] ([id number]) Comment: Performed By: #### HEMDF, PT /AP, CMP3, TSH4, B12, BNP3, RPR ####[place] [address] [place] [address] Specific Bimble,Urine 1.005 1.005-1.030 Normal 02-06 [facility] ([id number]) Comment: Performed By: #### HEMDF, PT /AP, CMP3, TSH4, B12, BNP3, RPR ####[place] [address] [place] [address] Total Protein,Urine NEG Negative Normal 02-06-2017 [facility] ([id number]) Comment: Performed By: #### HEMDF, PT /AP, CMP3, TSH4, B12, BNP3, RPR ####[place] [address] [place] [address] Urine, appearance clear Clear Normal 02-06-2017 [facility] ([id number]) Comment: Performed By: #### HEMDF, PT /AP, CMP3, TSH4, B12, BNP3, RPR ####[place] [address] [place] [address] Urine, color p. yel Lt. Yellow Normal 02-06-2017 [facility] ([id number]) Comment: Performed By: #### HEMDF, PT /AP, CMP3, TSH4, B12, BNP3, RPR ####[place] [address] [place] [address] Urine, glucose presence NORM Negative Normal 2016 [facility] ([id number]) Comment: Performed By: #### HEMDF, PT /AP, CMP3, TSH4, B12, BNP3, RPR ####[place] [address] [place] [address] Urine, nitrite presence NEG Negative Normal 2016 [facility] ([id number]) Comment: Performed By: #### HEMDF, PT /AP, CMP3, TSH4, B12, BNP3, RPR ####[place] [address] [place] [address] Urine, pH 5.0 5.0-8.0 [pH] Normal 02-06-2017 [facility] ([id number]) Comment: Performed By: #### HEMDF, PT /AP, CMP3, TSH4, B12, BNP3, RPR ####[place] [address] [place] [address] Urine, urobilinogen NORM 0-1 Normal 02-06-2017 [facility] ([id number]) Comment: Performed By: #### HEMDF, PT /AP, CMP3, TSH4, B12, BNP3, RPR ####[place] [address] [place] [address] WBC (Leukocytes) 1+ Negative Normal 02-06-2017 [facility] ([id number]) Comment: Performed By: #### HEMDF, PT /AP, CMP3, TSH4, B12, BNP3, RPR ####[place] [address] [place] [address] troponin i on 02-06 Troponin I.cardiac < 0.015 0.000-0.045 ng/mL Normal 7 [facility] mass conc (96403) Comment: Result Comment: 0.046 - 0.40 0 = Indeterminate> 0.400 = Consider Myocardial Injury Performed By: #### HEMDF, AP TT, PT, CMP3, BNP3, DDI, TSH4, LIPD2, TROPN ####[address] [place] [address] thyroid stim. hormone on 2017-02-06 Thyroid Stim. Hormone 4.510 0.358-3.740 uU/mL High 2016 [facility] (46005) Comment: Performed By: #### HEMDF, AP TT, PT, CMP3, BNP3, DDI, TSH4, LIPD2, TROPN ####[place] [address] [place] [address] prothrombin time on 2017-02-06 INR Coag RelTime (PPP) 0.9 0.9-1.1 {INR} Normal 017 [facility] ([id number]) Comment: Result Comment: Recommended Anticoagulant Therapy:SEE BELOW----- [...] PT, CMP3, BNP3, DDI, TSH4, LIPD2, TROPN ####[place] [address] [place] [address] Prothrombin time (PT) Coag 9.7 9.0-12.0 s Normal [facility] time (PPP) (89156) Comment: Result Comment: . Performed By: #### HEMDF, AP TT, PT, CMP3, BNP3, DDI, TSH4, LIPD2, TROPN ####[address] [address] nt pro bnp on 02-06 BNP 310 0-125 pg/mL High 02-06-2017 [facility] (07732) Comment: Performed By: #### HEMDF, AP TT, PT, CMP3, BNP3, DDI, TSH4, LIPD2, TROPN ####[address] [address] lipid panel on 2016 Cholesterol to HDL Ratio 3 Normal 02-06 [facility] (77350) Comment: Result Comment: Ref Range:< 3 Low Risk for CHD3-6 Mod Risk for CHD> 6 High Risk for CHD Performed By: #### HEMDF, AP TT, PT, CMP3, BNP3, DDI, TSH4, LIPD2, TROPN ####[address] [address] HDL Cholesterol 50 40-59 mg/dL Normal 02-06-2017 [facility] (25331) Comment: Performed By: #### HEMDF, AP TT, PT, CMP3, BNP3, DDI, TSH4, LIPD2, TROPN ####[address] [address] Low Density Lipoprotein 76 <100 mg/dL Normal 2016 [facility] (81218) Comment: Performed By: #### HEMDF, AP TT, PT, CMP3, BNP3, DDI, TSH4, LIPD2, TROPN ####[address] [address] Triglyceride 180 <150 mg/dL Abnormal 02-06-2017 [facility] ([id number]) Comment: Performed By: #### HEMDF, AP TT, PT, CMP3, BNP3, DDI, TSH4, LIPD2, TROPN ####[address] [address] Cholesterol 162 < 200 mg/dL Normal 02-06-2017 [facility] (62200) Comment: Performed By: #### HEMDF, AP TT, PT, CMP3, BNP3, DDI, TSH4, LIPD2, TROPN ####[address] [address] hemogram w/ autodiff on 2017-02-06 Abs Baso Cnt 0.0 0.0-0.2 10*3/uL Normal 02-06-2017 [facility] (40344) Comment: Performed By: #### HEMDF, AP TT, PT, CMP3, BNP3, DDI, TSH4, LIPD2, TROPN ####[address] [address] Basophils/100 WBC Auto (Bld) 0.5 % Normal 0 02-06-2017 [facility] (26695) Comment: Performed By: #### HEMDF, AP TT, PT, CMP3, BNP3, DDI, TSH4, LIPD2, TROPN ####[place] [address] [place] [address] Eosinophils 0.1 0.0-0.5 10*3/uL Normal 02-06-2017 [facility] (23370) Comment: Performed By: #### HEMDF, AP TT, PT, CMP3, BNP3, DDI, TSH4, LIPD2, TROPN ####[address] [address] Eosinophils/100 leukocytes 2.1 % Normal [facility] (62697) Comment: Performed By: #### HEMDF, AP TT, PT, CMP3, BNP3, DDI, TSH4, LIPD2, TROPN ####[address] [address] Erythrocyte distribution 13.6 11.5-14.5 % Normal 02-06 [facility] width Auto Ratio (RBC) (52157) Comment: Performed By: #### HEMDF, AP TT, PT, CMP3, BNP3, DDI, TSH4, LIPD2, TROPN ####[address] [address] Erythrocytes (RBC) 3.92 3.80-5.20 10*6/uL Normal 02-06-2017 [facility] (91150) Comment: Performed By: #### HEMDF, AP TT, PT, CMP3, BNP3, DDI, TSH4, LIPD2, TROPN ####[address] [address] Granulocytes/100 WBC (Bld) 66.7 % Normal [facility] (82272) Comment: Performed By: #### HEMDF, AP TT, PT, CMP3, BNP3, DDI, TSH4, LIPD2, TROPN ####[place] [address] Hematocrit (HCT) 35.7 35.0-47.0 % Normal 02-06-2017 [facility] (93101) Comment: Performed By: #### HEMDF, AP TT, PT, CMP3, BNP3, DDI, TSH4, LIPD2, TROPN ####[address] [address] Hemoglobin mass conc 12.1 11.7-16.0 g/dL Normal 7 [facility] (Bld) (22324) Comment: Performed By: #### HEMDF, AP TT, PT, CMP3, BNP3, DDI, TSH4, LIPD2, TROPN ####[place] [address] Lymphocytes 1.7 1.0-4.3 10*3/uL Normal 02-06-2017 [facility] (74244) Comment: Performed By: #### HEMDF, AP TT, PT, CMP3, BNP3, DDI, TSH4, LIPD2, TROPN ####[address] [address] Lymphocytes/100 leukocytes 24.5 % Normal [facility] (70606) Comment: Performed By: #### HEMDF, AP TT, PT, CMP3, BNP3, DDI, TSH4, LIPD2, TROPN ####[address] [address] MCH 30.7 26.0-34.0 pg Normal 02-06-2017 [facility] (97811) Comment: Performed By: #### HEMDF, AP TT, PT, CMP3, BNP3, DDI, TSH4, LIPD2, TROPN ####[place] [address] MCHC mass conc (RBC) 33.8 32.0-36.0 % Normal 7 [facility] (44362) Comment: Performed By: #### HEMDF, AP TT, PT, CMP3, BNP3, DDI, TSH4, LIPD2, TROPN ####[address] [address] MCV 91.0 79.0-98.0 fL Normal 02-06-2017 [facility] (74786) Comment: Performed By: #### HEMDF, AP TT, PT, CMP3, BNP3, DDI, TSH4, LIPD2, TROPN ####[address] [address] Monocytes 0.4 0.0-0.8 10*3/uL Normal 02-06-2017 [facility] (97206) Comment: Performed By: #### HEMDF, AP TT, PT, CMP3, BNP3, DDI, TSH4, LIPD2, TROPN ####[address] [address] Monocytes/100 leukocytes 6.2 % Normal 02-06 [facility] (22352) Comment: Performed By: #### HEMDF, AP TT, PT, CMP3, BNP3, DDI, TSH4, LIPD2, TROPN ####[address] [address] Neutrophils 4.7 1.8-7.0 10*3/uL Normal 02-06-2017 [facility] (50251) Comment: Performed By: #### HEMDF, AP TT, PT, CMP3, BNP3, DDI, TSH4, LIPD2, TROPN ####[address] [address] Platelet mean volume (PMV) 9.3 7.4-10.4 fL Normal [facility] (36385) Comment: Performed By: #### HEMDF, AP TT, PT, CMP3, BNP3, DDI, TSH4, LIPD2, TROPN ####[address] [place] [address] Platelets 169 140-440 10*3/uL Normal 02-06-2017 [facility] (12936) Comment: Performed By: #### HEMDF, AP TT, PT, CMP3, BNP3, DDI, TSH4, LIPD2, TROPN ####[address] [address] WBC (Leukocytes) 7.0 3.6-10.7 10*3/uL Normal 02-06-2017 [facility] (81760) Comment: Performed By: #### HEMDF, AP TT, PT, CMP3, BNP3, DDI, TSH4, LIPD2, TROPN ####[address] [address] glucose,bedside on 2017-02-06 Glucose mass conc 216 70-100 mg/dL High 02-06-2017 [facility] (22170) Comment: Result Comment: Test perform ed by glucose meter. Results may be 10%-15% lowerthan serum/plasma value s. (CLIA ID [id number]) Performed By: #### HEMDF, PT /AP, CMP3, TSH4, B12, BNP3, RPR ####[address] [address] Glucose mass conc 157 70-100 mg/dL High 02-06-2017 [facility] (97956) Comment: Result Comment: Test perform ed by glucose meter. Results may be 10%-15% lowerthan serum/plasma value s. (CLIA ID [id number]) Performed By: #### HEMDF, PT /AP, CMP3, TSH4, B12, BNP3, RPR ####[address] [address] Glucose mass conc 111 70-100 mg/dL High 02-06-2017 [facility] (02851) Comment: Result Comment: Test perform ed by glucose meter. Results may be 10%-15% lowerthan serum/plasma value s. (CLIA ID [id number]) Performed By: #### BGLU #### [address] [place] [address] Glucose mass conc 121 70-100 mg/dL High 02-06-2017 [facility] (96209) Comment: Result Comment: Test perform ed by glucose meter. Results may be 10%-15% lowerthan serum/plasma value s. (CLIA ID [id number]) Performed By: #### BGLU #### [place] [address] [place] [address] d-dimer, innovance on 2017-02-06 D-Dimer, [employer] 3.44 0.17-0.59 ug{FEU}/mL High 02-06-2017 [facility] [employer] [facility] (78383) Comment: Result Comment: [employer] D- Dimer values of <0.50 mg/L FEU can be used incombination with a pre-braxton t probability model (e.g. Well's)to exclude pulmonary embolism (PE) dise ase, as well as alyssa in the diagnosis of deep vein thrombosis (DVT). Performed By: #### HEMDF, AP TT, PT, CMP3, BNP3, DDI, TSH4, LIPD2, TROPN ####[place] [address] [place] [address] cta chest w/ + w/o contrast on 2017-02-06 CTA Chest w/ + w/o Patient Name: Lucien RESENDIZ 02-06-2017 [facility] ([id number]) CT Exam Date/Time 02/06/2017 04:32:28 EDT Exam CTA Chest w/ + w/o Contrast Ordering Physician JENNY TSANG [place] Accession Number [id number] CPT4 Codes 50991 (), Q9967 () Reason For Exam DYSPNEA, [...] Alkaline phosphatase (ALP) 80 45-117 U/L Normal [facility] (78850) Comment: Performed By: #### HEMDF, AP TT, PT, CMP3, BNP3, DDI, TSH4, LIPD2, TROPN ####[address] [address] Anion gap 7 mmol/L Normal 02-06-2017 [facility] (33141) Comment: Performed By: #### HEMDF, AP TT, PT, CMP3, BNP3, DDI, TSH4, LIPD2, TROPN ####[address] [address] Bilirubin (total) 0.4 0.2-1.0 mg/dL Normal 02-06-2017 [facility] (71358) Comment: Performed By: #### HEMDF, AP TT, PT, CMP3, BNP3, DDI, TSH4, LIPD2, TROPN ####[address] [address] Protein 7.3 6.4-8.2 g/dL Normal 02-06-2017 [facility] (95260) Comment: Performed By: #### HEMDF, AP TT, PT, CMP3, BNP3, DDI, TSH4, LIPD2, TROPN ####[place] [address] Alanine aminotransferase (ALT) 31 12-78 U/L Normal 02-06-2017 [facility] (77455) Comment: Performed By: #### HEMDF, AP TT, PT, CMP3, BNP3, DDI, TSH4, LIPD2, TROPN ####[place] [address] Aspartate aminotransferase (AST) 14 15-37 U/L Low 02-06-2017 [facility] (86654) Comment: Performed By: #### HEMDF, AP TT, PT, CMP3, BNP3, DDI, TSH4, LIPD2, TROPN ####[place] [address] Creatinine 1.25 0.55-1.40 mg/dL Normal 02-06-2017 [facility] (07701) Comment: Performed By: #### HEMDF, AP TT, PT, CMP3, BNP3, DDI, TSH4, LIPD2, TROPN ####[place] [address] eGFR (black) 50.8 >60 mL/min Normal 02-06-2017 [facility] (41209) Comment: Performed By: #### HEMDF, AP TT, PT, CMP3, BNP3, DDI, TSH4, LIPD2, TROPN ####[place] [address] eGFR (non-black) 42.0 >60 mL/min Normal 02-06-2017 [facility] (92352) Comment: Result Comment: Source- MDRD equation with creatinine calibration to IDMS(NKDEP)eGFR not recommen ded for drug dose adjustment Performed By: #### HEMDF, AP TT, PT, CMP3, BNP3, DDI, TSH4, LIPD2, TROPN ####[address] [place] [address] Albumin 3.2 3.4-5.0 g/dL Low 02-06-2017 [facility] (77880) Comment: Performed By: #### HEMDF, AP TT, PT, CMP3, BNP3, DDI, TSH4, LIPD2, TROPN ####[address] [place] [address] Urea nitrogen 14 7-25 mg/dL Normal 02-06-2017 [facility] (15783) Comment: Performed By: #### HEMDF, AP TT, PT, CMP3, BNP3, DDI, TSH4, LIPD2, TROPN ####[place] [address] Calcium 8.6 8.2-10.1 mg/dL Normal 02-06-2017 [facility] (63677) Comment: Performed By: #### HEMDF, AP TT, PT, CMP3, BNP3, DDI, TSH4, LIPD2, TROPN ####[place] [address] CO2 24 21-32 mmol/L Normal 02-06-2017 [facility] (67249) Comment: Performed By: #### HEMDF, AP TT, PT, CMP3, BNP3, DDI, TSH4, LIPD2, TROPN ####[place] [address] Glucose mass conc 58 70-100 mg/dL Low 02-06-2017 [facility] (83342) Comment: Performed By: #### HEMDF, AP TT, PT, CMP3, BNP3, DDI, TSH4, LIPD2, TROPN ####[place] [address] Chloride 109 98-109 mmol/L Normal 02-06-2017 [facility] (71911) Comment: Performed By: #### HEMDF, AP TT, PT, CMP3, BNP3, DDI, TSH4, LIPD2, TROPN ####[address] [place] [address] Potassium molar conc 3.3 3.5-5.1 mmol/L Low 7 [facility] (35416) Comment: Performed By: #### HEMDF, AP TT, PT, CMP3, BNP3, DDI, TSH4, LIPD2, TROPN ####[address] [address] Sodium 140 135-145 mmol/L Normal 02-06-2017 [facility] (68110) Comment: Performed By: #### HEMDF, AP TT, PT, CMP3, BNP3, DDI, TSH4, LIPD2, TROPN ####[address] [address] basic metabolic panel on 2017-02-06 Anion gap 8 mmol/L Normal 02-06-2017 [facility] (38866) Comment: Performed By: #### BMP3 #### [place] [address] Creatinine 1.23 0.55-1.40 mg/dL Normal 02-06-2017 [facility] (56775) Comment: Performed By: #### BMP3 #### [place] [address] eGFR (black) 51.8 >60 mL/min Normal 02-06-2017 [facility] (70811) Comment: Performed By: #### BMP3 #### [address] [address] eGFR (non-black) 42.7 >60 mL/min Normal 02-06-2017 [facility] (33222) Comment: Result Comment: Source- MDRD equation with creatinine calibration to IDMS(NKDEP)eGFR not recommen ded for drug dose adjustment Performed By: #### BMP3 #### [address] [place] [id number] CO2 27 21-32 mmol/L Normal 02-06-2017 [facility] (59606) Comment: Performed By: #### BMP3 #### [address] [place] [address] Glucose mass conc 109 70-100 mg/dL High 02-06-2017 [facility] (27390) Comment: Performed By: #### BMP3 #### [address] [address] Urea nitrogen 14 7-25 mg/dL Normal 02-06-2017 [facility] (32904) Comment: Performed By: #### BMP3 #### [address] [address] Calcium 8.6 8.2-10.1 mg/dL Normal 02-06-2017 [facility] (89577) Comment: Performed By: #### BMP3 #### [address] [address] Chloride 107 98-109 mmol/L Normal 02-06-2017 [facility] (70533) Comment: Performed By: #### BMP3 #### [address] [address] Potassium molar conc 3.7 3.5-5.1 mmol/L Normal 7 [facility] (75304) Comment: Performed By: #### BMP3 #### [address] [address] Sodium 142 135-145 mmol/L Normal 02-06-2017 [facility] (49942) Comment: Performed By: #### BMP3 #### [address] [address] aptt on 2017-02-06 aPTT 22.0 20.0-30.5 s Normal 02-06-2017 [facility] (09458) Comment: Result Comment: NOTE: The th erapeutic time for Heparin anticoagulation,based on Xa activity inhibition, i s an APTT of 46-80seconds. Performed By: #### HEMDF, AP TT, PT, CMP3, BNP3, DDI, TSH4, LIPD2, TROPN ####[address] [address] hemogram on 2017-01 Erythrocyte distribution 14.0 11.5-14.5 % Normal 01-24 [facility] width Auto Ratio (RBC) (28551) Comment: Performed By: #### BMP3, HEM OG ####[address] [place] [address] Erythrocytes (RBC) 3.52 3.80-5.20 10*6/uL Low 01-24-2017 [facility] (12690) Comment: Performed By: #### BMP3, HEM OG ####[address] [address] [place] [address] Hematocrit (HCT) 31.3 35.0-47.0 % Low 01-24-2017 [facility] (84944) Comment: Performed By: #### BMP3, HEM OG ####[place] [address] Hemoglobin mass conc (Bld) 10.7 11.7-16.0 g/dL Low [facility] (76523) Comment: Performed By: #### BMP3, HEM OG ####[address] [place] [address] MCH 30.3 26.0-34.0 pg Normal 01-24-2017 [facility] (18126) Comment: Performed By: #### BMP3, HEM OG ####[address] [place] [address] MCHC mass conc (RBC) 34.1 32.0-36.0 % Normal 7 [facility] (22814) Comment: Performed By: #### BMP3, HEM OG ####[address] [place] [address] MCV 89.0 79.0-98.0 fL Normal 01-24-2017 [facility] (46794) Comment: Performed By: #### BMP3, HEM OG ####[address] [place] [address] Platelet mean volume (PMV) 9.8 7.4-10.4 fL Normal [facility] (41161) Comment: Performed By: #### BMP3, HEM OG ####[place] [place] [address] Platelets 133 140-440 10*3/uL Low 01-24-2017 [facility] (98822) Comment: Performed By: #### BMP3, HEM OG ####[place] [address] [place] [address] WBC (Leukocytes) 4.0 3.6-10.7 10*3/uL Normal 01-24-2017 [facility] (17823) Comment: Performed By: #### BMP3, HEM OG ####[address] [address] [place] [address] glucose,bedside on 2017-01-24 Glucose mass conc 399 70-100 mg/dL High 01-24-2017 [facility] (71931) Comment: Result Comment: Test perform ed by glucose meter. Results may be 10%-15% lowerthan serum/plasma value s. (CLIA ID [id number]) Performed By: #### BGLU #### [place] [place] [address] Glucose mass conc 197 70-100 mg/dL High 01-24-2017 [facility] (35989) Comment: Result Comment: Test perform ed by glucose meter. Results may be 10%-15% lowerthan serum/plasma value s. (CLIA ID [id number]) Performed By: #### BGLU #### [place] [address] [place] [address] Glucose mass conc 263 70-100 mg/dL High 01-24-2017 [facility] (08342) Comment: Result Comment: Test perform ed by glucose meter. Results may be 10%-15% lowerthan serum/plasma value s. (CLIA ID [id number]) Performed By: #### BGLU #### [place] [address] [place] [address] Glucose mass conc 249 70-100 mg/dL High 01-24-2017 [facility] (45385) Comment: Result Comment: Test perform ed by glucose meter. Results may be 10%-15% lowerthan serum/plasma value s. (CLIA ID [id number]) Performed By: #### BGLU #### [address] [place] [address] basic metabolic panel on 2017-01-24 Anion gap 9 mmol/L Normal 01-24-2017 [facility] (66875) Comment: Performed By: #### BMP3, HEM OG ####[address] [place] [address] Creatinine 1.13 0.55-1.40 mg/dL Normal 01-24-2017 [facility] (73950) Comment: Performed By: #### BMP3, HEM OG ####[address] [place] [address] eGFR (black) 57.1 >60 mL/min Normal 01-24-2017 [facility] (97837) Comment: Performed By: #### BMP3, HEM OG ####[address] [place] [address] eGFR (non-black) 47.1 >60 mL/min Normal 01-24-2017 [facility] (06221) Comment: Result Comment: Source- MDRD equation with creatinine calibration to IDMS(NKDEP)eGFR not recommen ded for drug dose adjustment Performed By: #### BMP3, HEM OG ####[address] [place] [address] Glucose mass conc 223 70-100 mg/dL High 01-24-2017 [facility] (43096) Comment: Performed By: #### BMP3, HEM OG ####[address] [place] [address] Urea nitrogen 24 7-25 mg/dL Normal 01-24-2017 [facility] (99313) Comment: Performed By: #### BMP3, HEM OG ####[address] [place] [address] Calcium 8.1 8.2-10.1 mg/dL Low 01-24-2017 [facility] (16660) Comment: Performed By: #### BMP3, HEM OG ####[facility] [place] [address] CO2 21 21-32 mmol/L Normal 01-24-2017 [facility] (58757) Comment: Performed By: #### BMP3, HEM OG ####[address] [place] [address] Chloride 110 98-109 mmol/L High 01-24-2017 [facility] (15818) Comment: Performed By: #### BMP3, HEM OG ####[place] [address] [place] [address] Potassium molar conc 4.3 3.5-5.1 mmol/L Normal 7 [facility] (77863) Comment: Performed By: #### BMP3, HEM OG ####[address] [place] [address] Sodium 140 135-145 mmol/L Normal 01-24-2017 [facility] (23206) Comment: Performed By: #### BMP3, HEM OG ####[address] [place] [address] rpr, qual on 01-23 RPR, Qual NONREACTIVE Non-Reactive Normal 01-23-2017 [facility] (64001) Comment: Performed By: #### UAFRAN, UA NIGEL ####[address] [place] [address] hiv 1,2 ab; p24 ag on 2017-01-23 HIV 1,2 Ab; p24 Ag NONREACTIVE Nonreactive Normal 017 [facility] ([id number]) Comment: Result Comment: Results obta ined using [...] charge. Performed By: #### UAMAC, UA NIGEL ####[address] [place] [address] hemogram on 2017-01 Erythrocyte distribution 14.3 11.5-14.5 % Normal 01-23 [facility] width Auto Ratio (RBC) ([id number]) Comment: Performed By: #### UAMAC, UA NIGEL ####[address] [place] [address] Erythrocytes (RBC) 3.77 3.80-5.20 10*6/uL Low 01-23-2017 [facility] ([id number]) Comment: Performed By: #### UAMAC, UA NIGEL ####[address] [place] [address] Hematocrit (HCT) 33.6 35.0-47.0 % Low 01-23-2017 [facility] ([id number]) Comment: Performed By: #### UAMAC, UA NIGEL ####[address] [place] [address] Hemoglobin mass conc (Bld) 11.4 11.7-16.0 g/dL Low [facility] ([id number]) Comment: Performed By: #### UAMAC, UA NIGEL ####[address] [place] [address] MCH 30.3 26.0-34.0 pg Normal 01-23-2017 [facility] [facility] ([id number]) Comment: Performed By: #### UAMAC, UA NIGEL ####[address] [place] [address] MCHC mass conc (RBC) 34.0 32.0-36.0 % Normal 7 [facility] (39270) Comment: Performed By: #### UAMAC, UA NIGEL ####[address] [place] [address] MCV 89.2 79.0-98.0 fL Normal 01-23-2017 [facility] ([id number]) Comment: Performed By: #### UAMAC, UA NIGEL ####[address] [place] [address] Platelet mean volume (PMV) 10.6 7.4-10.4 fL High [facility] ([id number]) Comment: Performed By: #### UAMAC, UA NIGEL ####[address] [place] [address] Platelets 140 140-440 10*3/uL Normal 01-23-2017 [facility] ([id number]) Comment: Performed By: #### UAMAC, UA NIGEL ####[address] [place] [address] WBC (Leukocytes) 5.2 3.6-10.7 10*3/uL Normal 01-23-2017 [facility] ([id number]) Comment: Performed By: #### UAMAC, UA NIGEL ####[address] [place] [address] glucose,bedside on 2017-01-23 Glucose mass conc 104 70-100 mg/dL High 01-23-2017 [facility] (76512) Comment: Result Comment: Test perform ed by glucose meter. Results may be 10%-15% lowerthan serum/plasma value s. (CLIA ID [id number]) Performed By: #### BGLU #### [address] [place] [address] Glucose mass conc 98 70-100 mg/dL Normal 01-23-2017 [facility] (41876) Comment: Result Comment: Test perform ed by glucose meter. Results may be 10%-15% lowerthan serum/plasma value s. (CLIA ID [id number]) Performed By: #### UAMAC, UA NIGEL ####[address] [place] [address] Glucose mass conc 90 70-100 mg/dL Normal 01-23-2017 [facility] (15401) Comment: Result Comment: Test perform ed by glucose meter. Results may be 10%-15% lowerthan serum/plasma value s. (CLIA ID [id number]) Performed By: #### UAMAC, UA NIGEL ####[address] [place] [address] Glucose mass conc 98 70-100 mg/dL Normal 01-23-2017 [facility] (31506) Comment: Result Comment: Test perform ed by glucose meter. Results may be 10%-15% lowerthan serum/plasma value s. (CLIA ID [id number]) Performed By: #### UAMAC, UA NIGEL ####[address] [place] [address] basic metabolic panel on 2017-01-23 Anion gap 9 mmol/L Normal 01-23-2017 [facility] ([id number]) Comment: Performed By: #### UAMAC, UA NIGEL ####[address] [place] [address] Creatinine 1.13 0.55-1.40 mg/dL Normal 01-23-2017 [facility] (88366) Comment: Performed By: #### UAMAC, UA NIGEL ####[address] [place] [address] eGFR (black) 57.1 >60 mL/min Normal 01-23-2017 [facility] (79348) Comment: Performed By: #### UAMAC, UA NIGEL ####[address] [place] [address] eGFR (non-black) 47.1 >60 mL/min Normal 01-23-2017 [facility] (80455) Comment: Result Comment: Source- MDRD equation with creatinine calibration to IDMS(NKDEP)eGFR not recommen ded for drug dose adjustment Performed By: #### UAMAC, UA NIGEL ####[address] [place] [address] Calcium 8.3 8.2-10.1 mg/dL Normal 01-23-2017 [facility] ([id number]) Comment: Performed By: #### UAMAC, UA NIGEL ####[address] [place] [address] CO2 21 21-32 mmol/L Normal 01-23-2017 [facility] ([id number]) Comment: Performed By: #### UAMAC, UA NIGEL ####[address] [place] [address] Glucose mass conc 93 70-100 mg/dL Normal 01-23-2017 [facility] ([id number]) Comment: Performed By: #### UAMAC, UA NIGEL ####[address] [place] [address] Urea nitrogen 24 7-25 mg/dL Normal 01-23-2017 [facility] (52650) Comment: Performed By: #### UAMAC, UA NIGEL ####[address] [place] [address] Chloride 113 98-109 mmol/L High 01-23-2017 [facility] ([id number]) Comment: Performed By: #### UAMAC, UA NIGEL ####[address] [place] [address] Potassium molar conc 3.8 3.5-5.1 mmol/L Normal 7 [facility] (44053) Comment: Performed By: #### UAMAC, UA NIGEL ####[address] [place] [address] Sodium 143 135-145 mmol/L Normal 01-23-2017 [facility] ([id number]) Comment: Performed By: #### UAMAC, UA NIGEL ####[address] [place] [address] vitamin b12 on 2016 Cobalamins (Vitamin B12) 425 193-986 pg/mL Normal 01-22 [facility] (57835) Comment: Performed By: #### HEMDF, PT /AP, CMP3, TSH4, B12, BNP3, RPR ####[address] [place] [address] urinalysis,microscopic on 2017-01-22 Urine, bacteria in present Negative Normal 01-22-2017 [facility] sediment (88693) Comment: Result Comment: unable to qu antitate due to large amount of wbc's Performed By: #### UAMAC, UA NIGEL ####[address] [place] [address] Urine, epithelial cells see wbc comment 3-5 Normal 01-22-2017 [facility] in sediment (55618) Comment: Performed By: #### UAMAC, UA NIGEL ####[address] [place] [address] Urine, erythrocytes in see wbc comment 0-2 Normal 0 01-22-2017 [facility] sediment by area (00 000) Comment: Performed By: #### UAMAC, UA NIGEL ####[address] [place] [address] Urine, leukocytes in see below 0-5 Normal 7 [facility] sedmiment (23435) Comment: Result Comment: Grossly load ed, unable to identify any other formed elements. Performed By: #### UAMAC, UA NIGEL ####[address] [place] [address] urinalysis,macro on 2017-01-22 Bilirubin (direct) NEG Negative mg/dL Normal 01-22-2017 [facility] ([id number]) Comment: Performed By: #### UAMAC, UA NIGEL ####[address] [place] [address] Ketone,Urine NEG Negative Normal 01-22-2017 [facility] ([id number]) Comment: Performed By: #### UAMAC, UA NGIEL ####[address] [place] [address] Occult Blood,Ur 250 Negative {RBC}/uL Normal 01-22-2017 [facility] (16320) Comment: Performed By: #### UAMAC, UA NIGEL ####[address] [place] [address] Specific Bimble,Urine 1.025 1.005-1.030 Normal 01-22 [facility] (48037) Comment: Performed By: #### UAMAC, UA NIGEL ####[address] [place] [address] Total Protein,Urine 150 Negative mg/dL Normal 01-22-2017 [facility] (17262) Comment: Performed By: #### UAMAC, UA NIGEL ####[address] [place] [address] Urine, appearance cloudy Clear Normal 01-22-2017 [facility] (55116) Comment: Performed By: #### UAMAC, UA NIGEL ####[address] [place] [address] Urine, color yellow Lt. Yellow Normal 01-22-2017 [facility] ([id number]) Comment: Performed By: #### UAMAC, UA NIGEL ####[address] [place] [address] Urine, glucose presence NORM Negative Normal 2016 [facility] (99519) Comment: Performed By: #### UAMAC, UA NIGEL ####[address] [place] [address] Urine, nitrite presence NEG Negative Normal 2016 [facility] (99416) Comment: Performed By: #### UAMAC, UA NIGEL ####[address] [place] [address] Urine, pH 5.0 5.0-8.0 [pH] Normal 01-22-2017 [facility] (73750) Comment: Performed By: #### UAMAC, UA NIGEL ####[address] [address] Urine, urobilinogen NORM 0-1 Normal 01-22-2017 [facility] (38823) Comment: Performed By: #### UAMAC, UA NIGEL ####[place] [address] WBC (Leukocytes) 2+ Negative Normal 01-22-2017 [facility] (49695) Comment: Performed By: #### UAMAC, UA NIGEL ####[place] [address] thyroid stim. hormone on 2017-01-22 Thyroid Stim. Hormone 1.470 0.358-3.740 uU/mL Normal 2016 [facility] (56761) Comment: Performed By: #### HEMDF, PT /AP, CMP3, TSH4, B12, BNP3, RPR ####[address] [address] protime on aPTT 24.2 20.0-30.5 s Normal 01-22-2017 [facility] (41092) Comment: Result Comment: NOTE: The th erapeutic time for Heparin anticoagulation,based on Xa activity inhibition, i s an APTT of 46-80seconds. Performed By: #### HEMDF, PT /AP, CMP3, TSH4, B12, BNP3, RPR ####[address] [address] INR Coag RelTime (PPP) 1.0 0.9-1.1 {INR} Normal 017 [facility] (75631) Comment: Result Comment: Recommended Anticoagulant Therapy:SEE BELOW----- [...] PT /AP, CMP3, TSH4, B12, BNP3, RPR ####[address] [address] Prothrombin time (PT) Coag 10.1 9.0-12.0 s Normal [facility] time (PPP) (07168) Comment: Result Comment: . Performed By: #### HEMDF, PT /AP, CMP3, TSH4, B12, BNP3, RPR ####[address] [address] nt pro bnp on 01-22 BNP 352 0-125 pg/mL High 01-22-2017 [facility] (66521) Comment: Performed By: #### HEMDF, PT /AP, CMP3, TSH4, B12, BNP3, RPR ####[address] [address] hemogram w/ autodiff on 2017-01-22 Abs Baso Cnt 0.0 0.0-0.2 10*3/uL Normal 01-22-2017 [facility] (64549) Comment: Performed By: #### HEMDF, PT /AP, CMP3, TSH4, B12, BNP3, RPR ####[address] [place] [address] Basophils/100 WBC Auto (Bld) 0.5 % Normal 0 01-22-2017 [facility] (87673) Comment: Performed By: #### HEMDF, PT /AP, CMP3, TSH4, B12, BNP3, RPR ####[address] [place] [address] Eosinophils 0.2 0.0-0.5 10*3/uL Normal 01-22-2017 [facility] (65410) Comment: Performed By: #### HEMDF, PT /AP, CMP3, TSH4, B12, BNP3, RPR ####[address] [place] [facility] [place] [address] Eosinophils/100 leukocytes 5.2 % Normal [facility] (36964) Comment: Performed By: #### HEMDF, PT /AP, CMP3, TSH4, B12, BNP3, RPR ####[address] [facility] [place] [address] Granulocytes/100 WBC (Bld) 61.8 % Normal [facility] (84427) Comment: Performed By: #### HEMDF, PT /AP, CMP3, TSH4, B12, BNP3, RPR ####[address] [facility] [place] [place] [address] Lymphocytes 1.3 1.0-4.3 10*3/uL Normal 01-22-2017 [facility] (41956) Comment: Performed By: #### HEMDF, PT /AP, CMP3, TSH4, B12, BNP3, RPR ####[address] [facility] [place] [address] Lymphocytes/100 leukocytes 28.3 % Normal [facility] (28328) Comment: Performed By: #### HEMDF, PT /AP, CMP3, TSH4, B12, BNP3, RPR ####[address] [place] [address] Monocytes 0.2 0.0-0.8 10*3/uL Normal 01-22-2017 [facility] (00755) Comment: Performed By: #### HEMDF, PT /AP, CMP3, TSH4, B12, BNP3, RPR ####[address] [place] [address] Monocytes/100 leukocytes 4.2 % Normal 01-22 [facility] (76537) Comment: Performed By: #### HEMDF, PT /AP, CMP3, TSH4, B12, BNP3, RPR ####[address] [place] [address] Neutrophils 2.9 1.8-7.0 10*3/uL Normal 01-22-2017 [facility] (61990) Comment: Performed By: #### HEMDF, PT /AP, CMP3, TSH4, B12, BNP3, RPR ####[address] [address] Erythrocyte distribution 13.8 11.5-14.5 % Normal 01-22 [facility] width Auto Ratio (RBC) (96191) Comment: Performed By: #### HEMDF, PT /AP, CMP3, TSH4, B12, BNP3, RPR ####[address] [address] Erythrocytes (RBC) 3.63 3.80-5.20 10*6/uL Low 01-22-2017 [facility] (04941) Comment: Performed By: #### HEMDF, PT /AP, CMP3, TSH4, B12, BNP3, RPR ####[address] [place] [address] Hematocrit (HCT) 32.5 35.0-47.0 % Low 01-22-2017 [facility] (63790) Comment: Performed By: #### HEMDF, PT /AP, CMP3, TSH4, B12, BNP3, RPR ####[address] [address] Hemoglobin mass conc (Bld) 11.2 11.7-16.0 g/dL Low [facility] (05964) Comment: Performed By: #### HEMDF, PT /AP, CMP3, TSH4, B12, BNP3, RPR ####[address] [place] [address] MCH 30.8 26.0-34.0 pg Normal 01-22-2017 [facility] (69876) Comment: Performed By: #### HEMDF, PT /AP, CMP3, TSH4, B12, BNP3, RPR ####[address] [address] MCHC mass conc (RBC) 34.4 32.0-36.0 % Normal 7 [facility] (76091) Comment: Performed By: #### HEMDF, PT /AP, CMP3, TSH4, B12, BNP3, RPR ####[address] [address] MCV 89.6 79.0-98.0 fL Normal 01-22-2017 [facility] (14485) Comment: Performed By: #### HEMDF, PT /AP, CMP3, TSH4, B12, BNP3, RPR ####[address] [address] Platelet mean volume (PMV) 10.1 7.4-10.4 fL Normal [facility] (21256) Comment: Performed By: #### HEMDF, PT /AP, CMP3, TSH4, B12, BNP3, RPR ####[address] [address] Platelets 143 140-440 10*3/uL Normal 01-22-2017 [facility] (20073) Comment: Performed By: #### HEMDF, PT /AP, CMP3, TSH4, B12, BNP3, RPR ####[address] [address] WBC (Leukocytes) 4.6 3.6-10.7 10*3/uL Normal 01-22-2017 [facility] (08477) Comment: Performed By: #### HEMDF, PT /AP, CMP3, TSH4, B12, BNP3, RPR ####[address] [place] [address] glucose,bedside on 2017-01-22 Glucose mass conc 136 70-100 mg/dL High 01-22-2017 [facility] (82723) Comment: Result Comment: Test perform ed by glucose meter. Results may be 10%-15% lowerthan serum/plasma value s. (CLIA ID [id number]) Performed By: #### UAMAC, UA NIGEL ####[address] [place] [address] Glucose mass conc 153 70-100 mg/dL High 01-22-2017 [facility] (29397) Comment: Result Comment: Test perform ed by glucose meter. Results may be 10%-15% lowerthan serum/plasma value s. (CLIA ID [id number]) Performed By: #### UAMAC, UA NIGEL ####[address] [place] [address] culture urine on 02-02-06 CULTURE Specimen Source Comment:Urine, clean catch Normal 01-22-2017 [facility] URINE [facility] Patient name: Desmond RESENDIZ MNguyenR.N.: [id number] : 1945 System Age: 71 Sex: F Ord. ([id number]) Physician: SANAM BARAHONA Location: [address] [place] [address] Copy to: SANAM BARAHONA Adm. Date: 01/22/17 MICROBIOLOGYORDER#: [id number] COLLECTED: 01/22/17 12:10SOURCE: Urine RECEIVED: 01/22/17 12:24 OE C O M M E N T S Specimen Source Comment:Urine, clean catchCULTURE URINE FINAL 01/23/17 15:00>100,000 CFU/ml Vicenta kefyr Comment: Performed By: #### UAMAC, UA NIGEL ####[address] [address] [address] head or brain w/o contrast on 2017-01-22 CT Head or Brain Patient Name: BABAK, Lucien 0 01-22-2017 [employer] w/o Contrast [facility] ([id number]) CT Exam Date/Time 01/22/2017 12:42:[address] Head or Brain w/o Contrast Ordering Physician MD BARAHONA JACOB A Accession Number [id number] CPT4 Codes 92625 () Reason For Exam Altered mental status [...] Abdomen/Pelvis w/o Patient Name: BABAK, Lucien 01-22-2017 [employer] Contrast [facility] ([id number]) CT Exam Date/Time 01/22/2017 12:44:[address] Abdomen/Pelvis (No PO, No IV) Ordering Physician HERMES GARNETT Accession Number [id number] CPT4 Codes 35119 (CT Abdomen/Pelvis (No PO, No IV)) Reason [...] Alkaline phosphatase (ALP) 77 45-117 U/L Normal [facility] (69279) Comment: Performed By: #### HEMDF, PT /AP, CMP3, TSH4, B12, BNP3, RPR ####[address] [address] Bilirubin (total) 0.6 0.2-1.0 mg/dL Normal 01-22-2017 [facility] (60753) Comment: Performed By: #### HEMDF, PT /AP, CMP3, TSH4, B12, BNP3, RPR ####[address] [address] Protein 7.0 6.4-8.2 g/dL Normal 01-22-2017 [facility] (04748) Comment: Performed By: #### HEMDF, PT /AP, CMP3, TSH4, B12, BNP3, RPR ####[address] [address] Alanine aminotransferase (ALT) 35 12-78 U/L Normal 01-22-2017 [facility] (17902) Comment: Performed By: #### HEMDF, PT /AP, CMP3, TSH4, B12, BNP3, RPR ####[address] [place] [address] Anion gap 9 mmol/L Normal 01-22-2017 [facility] (66613) Comment: Performed By: #### HEMDF, PT /AP, CMP3, TSH4, B12, BNP3, RPR ####[address] [place] [address] Aspartate aminotransferase (AST) 10 15-37 U/L Low 01-22-2017 [facility] (34421) Comment: Performed By: #### HEMDF, PT /AP, CMP3, TSH4, B12, BNP3, RPR ####[address] [address] Creatinine 1.19 0.55-1.40 mg/dL Normal 01-22-2017 [facility] (74315) Comment: Performed By: #### HEMDF, PT /AP, CMP3, TSH4, B12, BNP3, RPR ####[address] [address] eGFR (black) 53.8 >60 mL/min Normal 01-22-2017 [facility] (81628) Comment: Performed By: #### HEMDF, PT /AP, CMP3, TSH4, B12, BNP3, RPR ####[address] [address] eGFR (non-black) 44.4 >60 mL/min Normal 01-22-2017 [facility] (04668) Comment: Result Comment: Source- MDRD equation with creatinine calibration to IDDE(NKDEP)eGFR not recommen ded for drug dose adjustment Performed By: #### HEMDF, PT /AP, CMP3, TSH4, B12, BNP3, RPR ####[address] [address] Albumin 3.2 3.4-5.0 g/dL Low 01-22-2017 [facility] (56456) Comment: Performed By: #### HEMDF, PT /AP, CMP3, TSH4, B12, BNP3, RPR ####[place] [address] [place] [address] Urea nitrogen 24 7-25 mg/dL Normal 01-22-2017 [facility] (64148) Comment: Performed By: #### HEMDF, PT /AP, CMP3, TSH4, B12, BNP3, RPR ####[address] [place] [address] Calcium 8.7 8.2-10.1 mg/dL Normal 01-22-2017 [facility] (27506) Comment: Performed By: #### HEMDF, PT /AP, CMP3, TSH4, B12, BNP3, RPR ####[address] [place] [address] CO2 22 21-32 mmol/L Normal 01-22-2017 [facility] (43823) Comment: Performed By: #### HEMDF, PT /AP, CMP3, TSH4, B12, BNP3, RPR ####[address] [place] [address] Glucose mass conc 184 70-100 mg/dL High 01-22-2017 [facility] (32126) Comment: Performed By: #### HEMDF, PT /AP, CMP3, TSH4, B12, BNP3, RPR ####[address] [place] [address] Chloride 112 98-109 mmol/L High 01-22-2017 [facility] (80151) Comment: Performed By: #### HEMDF, PT /AP, CMP3, TSH4, B12, BNP3, RPR ####[address] [place] [address] Potassium molar conc 3.8 3.5-5.1 mmol/L Normal 7 [facility] (00727) Comment: Performed By: #### HEMDF, PT /AP, CMP3, TSH4, B12, BNP3, RPR ####[address] [place] [address] Sodium 143 135-145 mmol/L Normal 01-22-2017 [facility] (64586) Comment: Performed By: #### HEMDF, PT /AP, CMP3, TSH4, B12, BNP3, RPR ####[address] [place] [address] Encounters Date Type Reason Provider Location 12-04-2017 - Ambulatory Left bundle-branch [facility] 12-05-2017 block, unspecified [facility] Medic al [place] [facility] ([id number]) [facility] 08-14-2017 - Ambulatory [facility] 08-14-2017 [facility] ter ([id number]) 06-23-2017 Ambulatory [facility] (0 0000) 02-19-2017 Ambulatory Type 2 diabetes KEVIN PAGE [facility] Heal th mellitus with SANAM A JUN SANAM System ( [address]) unspecified A [facility] complications 02-18-2017 Ambulatory Major depressive SANAM A JUN SANAM [facility] Health disorder, single A [facility] ([address]) episode, unspecified 02-18-2017 Ambulatory Edema, unspecified Luke Hashiguchi [facility] Health [facility] A JUN SANAM System (0 0000) [facility] 02-10-2017 [facility] System (0 0000) [facility] 02-06-2017 Ambulatory Paroxysmal atrial [facility] A JUN [facility] System (0 0000) A [facility] 01-28-2017 Ambulatory Vascular dementia KEVIN PAGE [facility] He alth without behavioral [facility] A JUN [facility]NAM Sys tem (81764) disturbance A [facility] 01-23-2017 Ambulatory Encounter for fitting Hermes Andres [facility] and adjustment of A JUN SANAM A System ( [address]) urinary device [facility] 01-22-2017 Ambulatory Calculus of ureter Tyrone MARION [facility] A JUN SANAM A System ([address] ) [facility] 08-06-2018 Patient encounter [facility] Facility :[place] [facility] 03-03-2018 Patient encounter [facility] Facility :[place] [facility] Payers Payer Name Policy Number Location TAJ [employer]LL[employer] [id number] [facility] MEDICARE ([id number]) [facility] ([id number]) KIRSTEN [facility]ROFORM[facility]LY [facility] MEDICARE [id number] [facility] ([id number]) [id number] [facility] ([id number]) [id number] [facility] ([id number]) [id number] [facility] ([id number]) The following information is from the original [...] BE BASED ON THE PRIMARY CLINICAL RECORDS. [facility] provides no warranty or guarantee of the accuracy or completeness of information in this document. UNRECOGNIZED CONTENT PROVIDED BELOW FOR UNRECOGNIZED SECTION INFORMATION SOURCE DATE CREATED AUTHOR AUTHOR'S ORGANIZATIO N 01/06/2018 [facility] CREATED AUTHOR AUTHOR'S ORGANIZATIO N 01/12/2018 [facility] DATE CREATED AUTHOR AUTHOR'S ORGANIZATIO N 01/13/2018 [facility] DATE CREATED AUTHOR AUTHOR'S ORGANIZATIO N 10/23/2018 [facility] DATE CREATED AUTHOR AUTHOR'S ORGANIZATIO N 02/23/[address] [facility]
== END 2020-01-01 14:15 | disposition intermediate care facility (04) | DRG 690 ==
PROVIDERS: Admitting Provider Family Medicine Geriatric Medicine; PCP Family Medicine; Referring Provider Family Medicine Geriatric Medicine; Visit Provider Family Medicine Geriatric Medicine
DX: N39.0 Urinary tract infection, site not specified (principal); I48.20 Chronic atrial fibrillation, unspecified; I50.32 Chronic diastolic (congestive) heart failure; B96.20 Unspecified Escherichia coli [E. coli] as the cause of diseases classified elsewhere; E78.5 Hyperlipidemia, unspecified; E55.9 Vitamin D deficiency, unspecified; F02.80 Dementia in other diseases classified elsewhere, unspecified severity, without behavioral disturbance, psychotic disturbance, mood disturbance, and anxiety; G30.9 Alzheimer's disease, unspecified; E11.22 Type 2 diabetes mellitus with diabetic chronic kidney disease; E03.9 Hypothyroidism, unspecified; N18.3 Chronic kidney disease, stage 3 (moderate); B35.4 Tinea corporis; E87.6 Hypokalemia; D50.9 Iron deficiency anemia, unspecified; N32.81 Overactive bladder; G47.33 Obstructive sleep apnea (adult) (pediatric); E66.9 Obesity, unspecified; Z68.32 Body mass index [BMI] 32.0-32.9, adult
CPT/HCPCS: 36415; 74018; 80048; 80053; 80074; 81001; 82150; 82962; 83690; 85025; 87086; 87635; 92507; 92523; 92526; 92610; 97110; 97116; 97162; 97166; 97530; 97535; 97802; 97803; G2023; J7030; A4216; J7799; U0004